=== PATIENT | male | born 1940 | race Caucasian/White ===

== ENCOUNTER 2017-10-22 15:47 | Inpatient (IN) ==
[2017-10-22] MEDS ORDERED: SALINE FLUSH 10ml SYRINGE IVF PRN (17:24)
--- OUTSIDE RECORDS SUMMARY | 2017-10-22 17:33 | External Medical Summary | Continuity of Care Document ---
:1940 Author Organization [facility] Address [address] [place] [address] Phone Care Team Providers Name Role Phone James Romero MD Primary Care Provider James Romero MD Unavailable Nohelia Combs Unavailable Unavailable Unavailable Unavailable Problems Name Dates Details Adjustment disorder with depressed mood (309.0, F43.21) Status: Active Ankle pain, right (719.47) Status: Active Benign essential hypertension (401.1, I10) Status: Active Benign prostatic hypertrophy with urinary frequency (600.01, N40.1) Status: Active Benign prostatic hypertrophy without lower urinary tract symptoms (LUTS) ( 600.00) Status: Active Carotid stenosis (433.10, I65.29) Status: Active Cellulitis, leg (682.6, L03.119) Status: Active Cough (786.2, R05) Status: Active Diabetes mellitus (250.00, E11.9) Status: Active 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, 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 Edema (Renamed from Accumulation of fluid in tissues) (782.3, R60.9) Status : Active Elevated PSA (790.93) Status: Active Encounter for long-term (current) use of anticoagulants (V58.61, Z79.01) Status: Active Fibrillation, atrial (427.31) Status: Active Foot pain, left (729.5, M79.672) Status: Active Gout (274.9, M10.9) Status: Active Health education (V65.40, Z71.9) Status: Active Hydronephrosis, left (591, N13.30) Status: Active Hyperglycemia (Renamed from Blood glucose elevated) (790.29, R73.9) Status: Active Hypertrophic and atrophic condition of skin (701.9, L98.9) Status: Active Inflamed seborrheic keratosis (702.11, L82.0) Status: Active 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, J40) Status: Active Low testosterone (257.2) Status: Active Malaise and fatigue (780.79, R53.81) Status: Active Need for prophylactic vaccination and inoculation against influenza (V04.81) Status: Active 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, 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 Obstructive sleep apnea (327.23) Status: Active Osteoarthritis, multiple sites (715.89, M15.9) Status: Active Prevnar (PCV13)FOR MEDICARE USE ONLY Pneumovax injection 36202 (V03.82) Status: Active Renal lithiasis (592.0, N20.0) Status: Active Stasis dermatitis (Renamed from Dermatitis, stasis) (454.1, I83.10) Status: Active Medications Name Dates Details ALLOPURINOL, 300MG (Oral Tablet) 1/2 Tablet daily for 30 days Quantity: 30 {Tablet} Refills: 6 Ordered:28-Oct-2014 James Romero MD Start 28-Oct-2014 Active Comments:1/2 daily COLCHICINE-PROBENECID, 0.5-500MG (Oral Tablet) 1 (one) Tablet Tablet daily for 14 days Quantity: 30 {Tablet} Refills: 2 Ordered:12-Oct-2014 Nohelia Combs Start 12-Oct-2014 Active DIGOXIN, 0.25MG (Oral Tablet) 1 Tablet daily for 90 days Quantity: 90 {Tablet} Refills: 4 Ordered:03-Nov-2013 Nohelia Combs Start 03-Nov-2013 Active DILTIAZEM HCL ER, 240MG (Oral Capsule Extended Release 24 Hour) 1 Capsule ER 24HR daily for 90 days Quantity: 90 {Capsule} Refills: 4 Ordered:03-Nov-2013 Nohelia Combs Start 03-Nov-2013 Active FLOMAX, 0.4MG (Oral Capsule) 1 Capsule daily at supper for 90 days Quantity: 90 {Capsule} Refills: 4 Ordered:02-Oct-2011 James Romero MD Start 02-Oct-2011 Active LISINOPRIL, 10MG (Oral Tablet) one tab Tablet daily for 90 days Quantity: 90 {Tablet} Refills: 4 Ordered:21-Jun-2014 Nohelia Combs Start 21-Jun-2014 Active METFORMIN HCL, 500MG (Oral Tablet) 1 Tablet daily for 90 days Quantity: 90 {Tablet} Refills: 4 Ordered:03-Nov-2013 Nohelia Combs Start 03-Nov-2013 Active PROMETHAZINE-DM, 6.25-15MG/5ML (Oral Syrup) 1-2 tsp Syrup Syrup every four hours, as needed for 10 days Quantity: 4 {Syrup} Refills: 1 Ordered:02-Jan-2013 James Romero MD Start 02-Jan-2013 Active Comments:Medication taken as needed. TRIAMTERENE-HCTZ, 37.5-25MG (Oral Capsule) - Historical Medication PRN (37.5-25 MG) Active TRUEPLUS LANCETS 28G (Miscellaneous) 1 (one) Misc use as directed once daily for 100 days Quantity: 100 {Box} Refills: 4 Ordered:16-Nov-2014 James Romero MD Start 16-Nov-2014 Active Comments:dx 250.00 TRUETEST TEST (In Vitro Strip) 1 (one) Strip use as directed once daily for 50 days Quantity: 50 {Strip} Refills: 8 Ordered:12-Nov-2014 James Romero MD Start 12-Nov-2014 Active Comments:dx 250.00 WARFARIN SODIUM, 5MG (Oral Tablet) one Tablet daily for 90 days Quantity: 135 {Tablet} Refills: 4 Ordered:08-Dec-2012 James Romero MD Start 08-Dec-2012 Active BACTRIM DS, 800-160MG (Oral Tablet) 1 (one) Tablet two times daily for 10 days Quantity: 20 {Tablet} Refills: 0 Ordered:11-Nov-2014 Nohelia Combs Start 11-Nov-2014 End 21-Nov-2014 Inactive BACTRIM DS, 800-160MG (Oral Tablet) - Historical Medication 1 two times daily (800-160 MG) Inactive Comments:04-30-[address] elbert TURNER, 500MG (Oral Tablet) - Historical Medication 1 two times daily (500 MG) Inactive Comments:started on 10/17/13 after being dismissed from [facility] for kidney stone by cac CITALOPRAM HYDROBROMIDE, 20MG (Oral Tablet) 1 Tablet daily for 30 days Quantity: 30 {Tablet} Refills: 2 Ordered:01-May-2012 Nohelia Combs Start End 01-May-2012 Inactive Comments:May increase to 2 in 10 days, if able and can refill with 40mg DIGOXIN, 0.25MG (Oral Tablet) 1 Tablet daily for 90 days Quantity: 90 {Tablet} Refills: 4 Ordered:30-Oct-2012 Nohelia Combs Start 19-Aug-2012 End 30-Oct-2012 Inactive DILTIAZEM HCL, 240MG (Oral Capsule Extended Release 24 Hour) - Historical Medication daily (240 MG) Inactive DOXAZOSIN MESYLATE, 4MG (Oral Tablet) - Historical Medication daily (4 MG) Inactive DYAZIDE, 37.5-25MG (Oral Capsule) 1 Capsule every 2-3 days for 30 days Quantity: 30 {Capsule} Refills: 1 Ordered:07-Aug-2011 Reshma Chaudhry Start End 07-Aug-2011 Inactive GUAIFENESIN ER, 600MG (Oral Tablet Extended Release 12 Hour) 1 (one) Tablet ER 12HR two times daily for 10 days Quantity: 20 {Tablet_ER_12HR} Refills: 0 Ordered:02-Jan-2013 James Romero MD Start 02-Jan-2013 End 12-Jan-2013 Inactive Comments:use if helpful LISINOPRIL, 20MG (Oral Tablet) - Historical Medication daily (20 MG) Inactive METFORMIN HCL, 500MG (Oral Tablet) 1 Tablet daily for 90 days Quantity: 90 {Tablet} Refills: 4 Ordered:30-Oct-2012 Nohelia Combs Start 24-Sep-2011 End 30-Oct-2012 Inactive NORCO, 5-325MG (Oral Tablet) - Historical Medication 1 take one tablet every four hours as needed for pain (5-325 MG) Inactive Comments:Medication taken as needed. 10/17/13 dx kidney stone from being discharged from [facility] testrone cream 10% apply 0.5ml daily - Historical Medication Inactive ZITHROMAX, 250MG (Oral Tablet) 2, then 1 (one) Tablet daily for 5 days Quantity: 6 {Tablet} Refills: 0 Ordered:02-Jan-2013 James Romero MD Start 02-Jan-2013 End 07-Jan-2013 Inactive Allergies and Adverse Reactions Name Dates Details No Known Allergies (Allergy) Onset: Status: Active No Known Drug Allergies (Allergy) Onset: Status: Active Past Medical History No Significant Medical History. Procedures Procedure Dates Details Follow up - Keep appt as scheduled Ordered:28-Oct-2014 CAROTID BILATERAL US (31061) Completed:14-Sep-2014 Comments: Verbal order from Dr. James Romero Follow up in 6 months Ordered:12-Aug-2014 PREVNAR 13 VALENT PNEUMOCOCCAL Completed:12-Aug-2014 VACCINE ([id number]) ADMINISTRATION OF PNEUMOCOCCAL Ordered:12-Aug-2014 CONJUGATE VACCINE (G0009) How to access health information Completed:12-Aug-2014 online Follow up in 6 months Ordered: Follow up in 2 months Ordered:26-Oct-2013 ADMIN INFLUENZA VIRUS VAC: FLU VACC Completed:26-Oct-2013 PRSV FREE INC ANTIG ([id number]) ADMINISTRATION OF INFLUENZA VIRUS Ordered:26-Oct-2013 VACCINE (G0008) Follow up in 6 months Ordered:30-Apr-2013 Follow up - Keep appt as scheduled Ordered:02-Jan-2013 Follow up in 6 months Ordered:30-Oct-2012 Follow up in 3 months Ordered:01-Aug-2012 Follow up in 3 months Ordered:01-May-2012 Follow up in 6 weeks Ordered: ADMINISTRATION OF INFLUENZA VIRUS Ordered:14-May-2011 VACCINE (G0008) FLU VACC PRSV FREE INC ANTIG Completed:14-May-2011 ([id number]) Follow up in 2 months Ordered:14-May-2011 Follow up in 2 months Ordered: Annual Eye Exam Completed:22-Nov-2008 Colonoscopy, Screening Completed: Colonoscopy, Screening Completed:06-Oct-2014 Flu Vaccine Completed:26-Oct-2013 Flu Vaccine Completed:06-Jun-2012 Comments: [facility] Flu Vaccine Completed:14-May-2011 Comments: high dose Pneumovax Completed:2008 13 Completed:12-Aug-2014 PSA Completed:28-Apr-2012 Comments: (16.45) PSA Completed:10-Apr-2011 Comments: (5.95) PSA Completed:23-Jun-2012 Comments: (8.05) PSA Completed:14-Oct-2012 Comments: (8.11) PSA Completed: Comments: (5.60) PSA Completed:15-Sep-2013 Comments: (5.40) PSA Completed: Comments: (6.15) PSA Completed:24-Aug-2014 Comments: (7.11) Immunization Name Dates Details Fluzone Administered on:14-May-2011 Comments: Site: Deltoid (Left); high dose Lot #: [id number] Influenza, preserv. free, enhanced immunogncty, IM Administered on:2013 Comments: Site: Deltoid (Left) Lot #: [id number] Pneumococcal conjugate vaccine, 13 valent, IM Administered on:12-Aug-2014 Comments: Site: Deltoid (Left) Lot #: [id number] Social History Name Dates Details Tobacco use: Former smoker. Status: Active Current tobacco use: Former smoker. Status: Inactive Vital Signs Date Test Result Details 28-Oct-2014 11:37 Temperature 98.4 f Comments: Method: Temporal Pulse 76 /min Comments: Pattern: Regular Respiration Rate 20 /min Comments: Pattern: Unlabored BP Systolic 126 mm[Hg] Comments: Patient Position: Sitting; Cuff Location: Left Arm; Cuff Size: Standard BP Diastolic 72 mm[Hg] Comments: Patient Position: Sitting; Cuff Location: Left Arm; Cuff Size: Standard Weight 229.3125 lb Height 73 in Body Mass Index Calculated 30.25 kg/m2 Body Surface Area Calculated 2.28 m2 12-Aug-2014 09:49 Temperature 98.1 f Comments: Method: Temporal Pulse 84 /min Comments: Pattern: Regular Respiration Rate 20 /min Comments: Pattern: Unlabored BP Systolic 128 mm[Hg] Comments: Patient Position: Sitting; Cuff Location: Left Arm; Cuff Size: Standard BP Diastolic 76 mm[Hg] Comments: Patient Position: Sitting; Cuff Location: Left Arm; Cuff Size: Standard Weight 229 lb Height 73 in Body Mass Index Calculated 30.21 kg/m2 Body Surface Area Calculated 2.28 m2 13:34 Temperature 98.7 f Comments: Method: Temporal Pulse 72 /min Comments: Pattern: Regular BP Systolic 126 mm[Hg] Comments: Patient Position: Sitting; Cuff Location: Left Arm; Cuff Size: Standard BP Diastolic 72 mm[Hg] Comments: Patient Position: Sitting; Cuff Location: Left Arm; Cuff Size: Standard Weight 233 lb Height 72.5 in Body Mass Index Calculated 31.17 kg/m2 Body Surface Area Calculated 2.28 m2 26-Oct-2013 16:20 Temperature 98.7 f Comments: Method: Temporal Pulse 66 /min Comments: Pattern: Irregular Respiration Rate 20 /min Comments: Pattern: Unlabored BP Systolic 110 mm[Hg] Comments: Patient Position: Sitting; Cuff Location: Left Arm; Cuff Size: Standard BP Diastolic 70 mm[Hg] Comments: Patient Position: Sitting; Cuff Location: Left Arm; Cuff Size: Standard Weight 237 lb Height 71.5 in Body Mass Index Calculated 32.59 kg/m2 Body Surface Area Calculated 2.28 m2 30-Apr-2013 10:31 Temperature 98.9 f Comments: Method: Temporal Pulse 76 /min Comments: Pattern: Regular Respiration Rate 20 /min Comments: Pattern: Unlabored BP Systolic 110 mm[Hg] Comments: Patient Position: Sitting; Cuff Location: Left Arm; Cuff Size: Standard BP Diastolic 60 mm[Hg] Comments: Patient Position: Sitting; Cuff Location: Left Arm; Cuff Size: Standard Weight 230 lb Height 70.5 in Body Mass Index Calculated 32.53 kg/m2 Body Surface Area Calculated 2.23 m2 02-Jan-2013 15:18 Temperature 99 f Comments: Method: Temporal Pulse 80 /min Comments: Pattern: Irregular Respiration Rate 20 /min Comments: Pattern: Unlabored BP Systolic 110 mm[Hg] Comments: Patient Position: Sitting; Cuff Location: Left Arm; Cuff Size: Standard BP Diastolic 80 mm[Hg] Comments: Patient Position: Sitting; Cuff Location: Left Arm; Cuff Size: Standard Weight 245 lb Height 73 in Body Mass Index Calculated 32.32 kg/m2 Body Surface Area Calculated 2.35 m2 01-Aug-2012 09:39 Temperature 97.9 f Comments: Method: Temporal Pulse 76 /min Comments: Pattern: Irregular Respiration Rate 20 /min Comments: Pattern: Unlabored BP Systolic 100 mm[Hg] Comments: Patient Position: Sitting; Cuff Location: Left Arm; Cuff Size: Standard BP Diastolic 64 mm[Hg] Comments: Patient Position: Sitting; Cuff Location: Left Arm; Cuff Size: Standard Weight 239 lb Height 71.5 in Body Mass Index Calculated 32.87 kg/m2 Body Surface Area Calculated 2.29 m2 01-May-2012 11:19 Temperature 99.1 f Comments: Method: Temporal Pulse 80 /min Comments: Pattern: Irregular Respiration Rate 20 /min Comments: Pattern: Unlabored BP Systolic 98 mm[Hg] Comments: Patient Position: Sitting; Cuff Location: Left Arm; Cuff Size: Standard BP Diastolic 60 mm[Hg] Comments: Patient Position: Sitting; Cuff Location: Left Arm; Cuff Size: Standard Weight 238.5 lb Height 72 in Body Mass Index Calculated 32.35 kg/m2 Body Surface Area Calculated 2.3 m2 15:28 Temperature 98.4 f Comments: Method: Temporal Pulse 72 /min Comments: Pattern: Irregular Respiration Rate 20 /min Comments: Pattern: Unlabored BP Systolic 108 mm[Hg] Comments: Patient Position: Sitting; Cuff Location: Left Arm; Cuff Size: Standard BP Diastolic 62 mm[Hg] Comments: Patient Position: Sitting; Cuff Location: Left Arm; Cuff Size: Standard Weight 235 lb Height 72 in Body Mass Index Calculated 31.87 kg/m2 Body Surface Area Calculated 2.28 m2 07-Aug-2011 11:28 Temperature 97.9 f Comments: Method: Temporal Pulse 92 /min Comments: Pattern: Regular BP Systolic 120 mm[Hg] Comments: Patient Position: Sitting; Cuff Location: Left Arm; Cuff Size: Standard BP Diastolic 84 mm[Hg] Comments: Patient Position: Sitting; Cuff Location: Left Arm; Cuff Size: Standard Weight 237 lb Height 72 in Body Mass Index Calculated 32.14 kg/m2 Body Surface Area Calculated 2.29 m2 14-May-2011 15:35 Temperature 97.6 f Comments: Method: Temporal Pulse 100 /min Comments: Pattern: Irregular Respiration Rate 20 /min Comments: Pattern: Unlabored BP Systolic 120 mm[Hg] Comments: Patient Position: Sitting; Cuff Location: Left Arm; Cuff Size: Standard BP Diastolic 70 mm[Hg] Comments: Patient Position: Sitting; Cuff Location: Left Arm; Cuff Size: Standard Weight 231 lb Height 72.25 in Body Mass Index Calculated 31.11 kg/m2 Body Surface Area Calculated 2.27 m2 14:05 Temperature 98.5 f Comments: Method: Temporal Pulse 60 /min Comments: Pattern: Irregular Respiration Rate 20 /min Comments: Pattern: Unlabored BP Systolic 124 mm[Hg] Comments: Patient Position: Sitting; Cuff Location: Left Arm; Cuff Size: Standard BP Diastolic 74 mm[Hg] Comments: Patient Position: Sitting; Cuff Location: Left Arm; Cuff Size: Standard Weight 234 lb Height 71.75 in Body Mass Index Calculated 31.96 kg/m2 Body Surface Area Calculated 2.27 m2 Results Date Description Value Details 01-Aug-2012 SHAVE SKIN LESION Comments: The left neck Final 10:36 SINGLE ([id number]) lesion was removed and also the left angle of the jaw lesion and the right cheek lesion in the same manner, although I only charged for the one on the left neck that was definitely inflamed. Procedure as follows: The skin was anesthetized with 1 cc 1% lidocaine with each lesion after cleansing with Hibiclens solution x3.I then used a #15 scalpel with pickups to shave the lesion then cauterized the base with good hemostasis. Lesions were not sent to pathology. 10:35 PUNCH BIOPSY ([id number]) Comments: After Final FIRST BIOPSY cleansing the left forearm with Hibiclens solution x3, the area was anesthetized with 1 cc 1% lidocaine and a 2 mm punch was used and elevated with sterile scissors and sent to pathology. Silver nitrate stick was for cautery. 28-Oct-2014 PT (PROTHROMBIN TIME) Comments: Items in this order include: Draw Charge[i], Protime & INRDoes patient have a artifical heart valve? No 10:48 ([facility]) (41449) 9. Saturday Dosage 7.5 mg (Normal) 8. Saturday Dosage 7.5 mg (Normal) 7. Dosage 7.5 mg (Normal) 6. Saturday Dosage 7.5 mg (Normal) 5. Saturday Dosage 7.5 mg (Normal) 4. Saturday Dosage 7.5 mg (Normal) 3. Saturday Dosage 7.5 mg (Normal) INR 3.67 (Normal) PT 39.7 s (Abnormal) Range: 9.3-11.7 10:48 Routine Venipuncture Comments: Items in this order include: Draw Charge[i], Protime & INR (86012) Draw Drawn (Normal) 29-Nov-2014 PT (PROTHROMBIN TIME) Comments: Items in this order include: Draw Charge[i], Protime & INRDoes patient have a artifical heart valve? No 10:28 ([employer]) (22774) 9. Saturday Dosage 5.0 mg (Normal) 8. Saturday Dosage 5.0 mg (Normal) 6. Saturday Dosage 5.0 mg (Normal) 7. Dosage 5.0 mg (Normal) 5. Saturday Dosage 5.0 mg (Normal) 3. Saturday Dosage 5.0 mg (Normal) 4. Saturday Dosage 5.0 mg (Normal) INR 2.50 (Normal) PT 26.7 s (Abnormal) Range: 9.3-11.7 10:28 Routine Venipuncture Comments: Items in this order include: Draw Charge[i], Protime & INR (81593) Draw Drawn (Normal) 21-Sep-2014 PT (PROTHROMBIN TIME) Comments: Items in this order include: Draw Charge[i], Protime & INRDolynn patient have a artifical heart valve? No 10:08 ([facility]) (79498) 9. Saturday Dosage 5.0 mg (Normal) 7. Dosage 5.0 mg (Normal) 8. Saturday Dosage 7.5 mg (Normal) 6. Saturday Dosage 7.5 mg (Normal) 4. Saturday Dosage 7.5 mg (Normal) 5. Saturday Dosage 5.0 mg (Normal) 3. Saturday Dosage 5.0 mg (Normal) INR 2.92 (Normal) PT 31.4 s (Abnormal) Range: 9.3-11.7 10:08 Routine Venipuncture Comments: Items in this order include: Draw Charge[i], Protime & INR (59200) Draw Drawn (Normal) 24-Aug-2014 Routine Venipuncture Comments: Items in this order include: Protime & INR, Draw Charge[i] 09:59 ([id number]) Draw Drawn (Normal) 09:59 PT (PROTHROMBIN TIME) Comments: Items in this order include: Protime & INR, Draw Charge[i]INR value > 3.0 given to Estella by Beny Buckley patient have a artifical heart valve? No ([facility]) (13277) 9. Saturday Dosage 7.5 mg (Normal) 7. Dosage 7.5 mg (Normal) 8. Saturday Dosage 7.5 mg (Normal) 5. Saturday Dosage 7.5 mg (Normal) 6. Saturday Dosage 7.5 mg (Normal) 4. Saturday Dosage 7.5 mg (Normal) 3. Saturday Dosage 7.5 mg (Normal) INR 3.76 (Normal) PT 40.8 s (Abnormal) Range: 9.3-11.7 09:59 CBC MALE- ORDER THIS Comments: Items in this order include: Digoxin, PSA, Basic Metabolic Panel, Hemoglobin A1C, Urine Microalbumin, CBC ONE! (96755) manual diff Not Indicated (Normal) mpv 9.60 fL (Normal) Range: 0.00-99.90 PLT 234.0 10*3/uL (Normal) Range: 150.0-450.0 RDW 13.5 % (Normal) Range: 11.5-14.5 MCH 30.5 pg (Normal) Range: 27.0-31.2 MCHC 32.6 g/dL (Normal) Range: 31.0-36.0 MCV 93.3 fL (Normal) Range: 80.0-97.0 HCT 43.2 % (Normal) Range: 39.0-54.0 HGB 14.10 g/dL (Normal) Range: 13.00-17.00 RBC 4.63 M/uL (Normal) Range: 4.60-6.20 Baso% 0.500 % (Normal) Range: 0.000-1.000 eos% 2.50 % (Normal) Range: 0.00-3.00 mono% 5.10 % (Normal) Range: 0.00-9.00 LYM% 20.50 % (Normal) Range: 20.00-40.00 Baso 0.030 10*3/uL (Normal) Range: 0.000-0.100 nirmal% 71.40 % (Normal) Range: 55.00-75.00 eos 0.150 10*3/uL (Normal) Range: 0.000-4.000 mono 0.30 10*3/uL (Normal) Range: 0.00-0.70 LYMPHS 1.22 10*3/uL (Normal) Range: 0.90-4.20 nirmal 4.24 10*3/uL (Normal) Range: 2.50-7.80 wbc 5.94 10*3/uL (Normal) Range: 4.50-10.50 09:59 Urine Microalbumin Comments: Items in this order include: Digoxin, PSA, Basic Metabolic Panel, Hemoglobin A1C, Urine Microalbumin, CBC (87541) U A:C RATIO <30 mg/g Normal Range: <30 mg/g Normal (Normal) U CREAT 200 mg/dL (Normal) Range: 10-300 U ALB 80 mg/L (Abnormal) Range: 10 mg/L 09:59 HEMOGLOBIN GLYCLATED Comments: Items in this order include: Digoxin , PSA, Basic Metabolic Panel, Hemoglobin A1C, Urine Microalbumin, CBC (HGB A1C) (95608) A1C 5.9 % (Normal) Range: 4.6-6.2 Comments: Increased risk of diabetes. 09:59 [facility] (87033) Comments: Items in this order include: Digoxin, PSA, Basic Metabolic Panel, Hemoglobin A1C, Urine Microalbumin, CBC GLU 159 mg/dL (Abnormal) Range: 70-110 CA 8.4 mg/dL (Normal) Range: 8.4-10.2 eGFR 53.0 mL/min/1.73m2 Range: >60.0 (Abnormal) CREAT 1.4 mg/dL (Abnormal) Range: 0.6-1.3 OSMO 287 (Normal) Range: 275-295 BUN 24 mg/dL (Abnormal) Range: 7-18 AGAP 13.00 mmol/L (Normal) Range: 10.00-20.00 CO2 27.9 mmol/L (Normal) Range: 21.0-32.0 CL 103 mmol/L (Normal) Range: 98-107 K 3.9 mmol/L (Normal) Range: 3.5-5.0 NA 140 mmol/L (Normal) Range: 135-145 09:59 PSA (PROSTATE SPECIFIC Comments: Items in this order include: Digoxin, PSA, Basic Metabolic Panel, Hemoglobin A1C, Urine Microalbumin, CBC ANTIGEN) (65913) PSA 7.11 ng/mL (Abnormal) Range: 0.00-4.00 09:59 DIGOXIN (09611) Comments: Items in this order include: Digoxin, PSA , Basic Metabolic Panel, Hemoglobin A1C, Urine Microalbumin, CBCTime of Last Dose? 08/23/2014 8:00 AMDosage? 0.25 DIG 0.36 ng/mL (Abnormal) Range: 0.90-2.00 05-Aug-2014 PT (PROTHROMBIN TIME) Comments: Items in this order include: Draw Charge[i], Protime & INRDoes patient have a artifical heart valve? No 10:48 ([facility]) (42389) 8. Saturday Dosage 7.5 mg (Normal) 9. Saturday Dosage 5.0 mg (Normal) 6. Saturday Dosage 7.5 mg (Normal) 7. Dosage 5.0 mg (Normal) 5. Saturday Dosage 5.0 mg (Normal) 4. Saturday Dosage 7.5 mg (Normal) 3. Saturday Dosage 5.0 mg (Normal) INR 1.11 (Normal) PT 11.5 s (Normal) Range: 9.3-11.7 10:48 Routine Venipuncture Comments: Items in this order include: Draw Charge[i], Protime & INR (76385) Draw Drawn (Normal) 03-Jun-2014 PT (PROTHROMBIN TIME) Comments: Items in this order include: Draw Charge[i], Protime & INRDoes patient have a artifical heart valve? No 13:56 ([facility]) (27033) 9. Saturday Dosage 7.5 mg (Normal) 8. Saturday Dosage 5.0 mg (Normal) 7. Dosage 7.5 mg (Normal) 6. Saturday Dosage 5.0 mg (Normal) 5. Saturday Dosage 7.5 mg (Normal) 4. Saturday Dosage 5.0 mg (Normal) 3. Saturday Dosage 7.5 mg (Normal) INR 2.21 (Normal) PT 23.5 s (Abnormal) Range: 9.3-11.7 13:56 Routine Venipuncture Comments: Items in this order include: Draw Charge[i], Protime & INR (30904) Draw Drawn (Normal) PT (PROTHROMBIN TIME) Comments: Items in this order include: Protime & INRDoes patient have a artifical heart valve? No 14:25 ([facility]) (93797) 9. day Dosage 5.0 mg (Normal) 8. Saturday Dosage 7.5 mg (Normal) 7. Dosage 5.0 mg (Normal) 6. Saturday Dosage 5.0 mg (Normal) 5. Saturday Dosage 7.5 mg (Normal) 4. Saturday Dosage 5.0 mg (Normal) 3. Saturday Dosage 5.0 mg (Normal) INR 1.57 (Normal) PT 16.7 s (Abnormal) Range: 10.4-12.4 14:25 PSA (PROSTATE SPECIFIC Comments: A copy of this report will be faxed to: Bettie Boswell in this order include: Draw Charge[i], PSA ANTIGEN) ([id number]) PSA 6.15 ng/mL (Abnormal) Range: 0.00-4.00 14:25 Routine Venipuncture Comments: A copy of this report will be faxed to: Bettie Boswell in this order include: Draw Charge[i], PSA ([id number]) Draw Drawn (Normal) HEMOGLOBIN GLYCLATED Comments: Items in this order include: Hemoglobin A1C, Draw Charge[i], Comprehensive Metabolic Panel, Uric Acid 15:06 (HGB A1C) (10472) A1C 5.7 % (Normal) Range: 4.6-6.2 15:06 CMP ([id number]) Comments: Items in this order include: Hemoglobin A1C, Draw Charge[i], Comprehensive Metabolic Panel, Uric Acid ALTI 28 U/L (Normal) Range: 12-78 AST 24 [iU]/L (Normal) Range: 10-42 ALP 72 U/L (Normal) Range: 50-136 a/g ratio 1.15 (Normal) Range: 1.00-2.10 globulin 3.3 g/dL (Normal) Range: 2.2-3.9 ALB 3.8 g/dL (Normal) Range: 3.4-5.0 TP 7.1 g/dL (Normal) Range: 6.0-8.3 T.ALVINO 0.28 mg/dL (Normal) Range: 0.20-1.00 GLU 68 mg/dL (Abnormal) Range: 70-110 CA 9.1 mg/dL (Normal) Range: 8.4-10.2 eGFR 53.1 mL/min/1.73m2 Range: >60.0 (Abnormal) CREAT 1.4 mg/dL (Abnormal) Range: 0.6-1.3 OSMO 285 (Normal) Range: 275-295 BUN 25 mg/dL (Abnormal) Range: 7-18 AGAP 18.70 mmol/L (Normal) Range: 10.00-20.00 CO2 21.4 mmol/L (Normal) Range: 21.0-32.0 CL 105 mmol/L (Normal) Range: 98-107 K 4.1 mmol/L (Normal) Range: 3.5-5.0 NA 141 mmol/L (Normal) Range: 135-145 15:06 URIC ACID BLOOD (69387) Comments: Items in this order include: Hemoglobin A1C, Draw Charge[i], Comprehensive Metabolic Panel, Uric Acid Uric Acid 8.0 mg/dL (Abnormal) Range: 3.6-7.7 15:06 Routine Venipuncture Comments: Items in this order include: Hemoglobin A1C, Draw Charge[i], Comprehensive Metabolic Panel, Uric Acid (20370) Draw Drawn (Normal) PT (PROTHROMBIN TIME) Comments: Items in this order include: Draw Charge[i], Protime & INRDoes patient have a artifical heart valve? No 14:27 ([facility]) (01650) 8. Saturday Dosage 5.0 mg (Normal) 9. Saturday Dosage 5.0 (cycle 5,5,7.5) mg (Normal) 7. Dosage 7.5 mg (Normal) 6. Saturday Dosage 5.0 mg (Normal) 5. Saturday Dosage 5.0 mg (Normal) 4. Saturday Dosage 7.5 mg (Normal) 3. Saturday Dosage 5.0 mg (Normal) INR 1.93 (Normal) PT 20.3 s (Abnormal) Range: 10.4-12.4 14:27 Routine Venipuncture Comments: Items in this order include: Draw Charge[i], Protime & INR (96056) Draw Drawn (Normal) 26-Oct-2013 Draw Charge[i] Comments: Items in this order include: Basic Metabolic Panel, Draw Charge[i] 17:08 Draw Drawn (Normal) 17:05 [facility] (16709[facility] Comments: Items in this order include: Basic Metabolic Panel, Draw Charge[i] GLU 98 mg/dL (Normal) Range: 70-110 CA 8.9 mg/dL (Normal) Range: 8.4-10.2 eGFR 53.1 mL/min/1.73m2 Range: >60.0 (Abnormal) CREAT 1.4 mg/dL (Abnormal) Range: 0.6-1.3 OSMO 283 (Normal) Range: 275-295 BUN 22 mg/dL (Abnormal) Range: 7-18 AGAP 15.80 mmol/L (Normal) Range: 10.00-20.00 CO2 26.8 mmol/L (Normal) Range: 21.0-32.0 CL 102 mmol/L (Normal) Range: 98-107 K 4.6 mmol/L (Normal) Range: 3.5-5.0 NA 140 mmol/L (Normal) Range: 135-145 16:04 PT (PROTHROMBIN TIME) Comments: Items in this order include: Draw Charge[i], Protime & INRDoes patient have a artifical heart valve? No ([facility]) (59238) 9. Saturday Dosage 5.0 mg (Normal) 7. Dosage 5.0 mg (Normal) 8. Saturday Dosage 5.0 mg (Normal) 6. Saturday Dosage 5.0 mg (Normal) 5. Saturday Dosage 5.0 mg (Normal) 4. Saturday Dosage 5.0 mg (Normal) 3. Saturday Dosage 5.0 mg (Normal) INR 2.62 (Normal) PT 27.0 s (Abnormal) Range: 10.4-12.4 16:04 Routine Venipuncture Comments: Items in this order include: Draw Charge[i], Protime & INR (63996) Draw Drawn (Normal) 15-Sep-2013 PSA (PROSTATE SPECIFIC Comments: A copy of this report will be faxed to: Bettie Boswell in this order include: A COPY TO [eliana PSAPSA allowed more than once a year due to being a Diagonistic PSA not a screening PSA 11:05 ANTIGEN) (00171) PSA 5.40 ng/mL (Abnormal) Range: 0.00-4.00 11:[address] Boswell Comments: A copy of this report will be faxed to: Bettie Boswell in this order include: A COPY TO [kyung] PSAPSA allowed more than once a year due to being a Diagonistic PSA not a screening PSA Ordering Doctor . (Normal) 11:05 Draw Charge[i] Comments: Items in this order include: Draw Charge[i ], Protime & INR Draw Drawn (Normal) 11:05 Protime & INR Comments: Items in this order include: Draw Charge[i], Protime & INRDoes patient have a artifical heart valve? No 8. Saturday Dosage 5.0 mg (Normal) 9. Saturday Dosage 5.0 mg (Normal) 7. Dosage 7.5 mg (Normal) 5. Saturday Dosage 5.0 mg (Normal) 6. Saturday Dosage 5.0 mg (Normal) 4. Saturday Dosage 7.5 mg (Normal) 3. Saturday Dosage 5.0 mg (Normal) INR 2.32 (Normal) PT 24.1 s (Abnormal) Range: 10.4-12.4 07-Aug-2013 HEMOGLOBIN GLYCLATED Comments: Items in this order include: Comprehensive Metabolic Panel, Hemoglobin [id number] Hgb A1C was ran 99 Days ago. Check by MARGARITA 10:38 (HGB A1C) (44600) A1C 5.9 % (Normal) Range: 4.6-6.2 Comments: Increased risk of diabetes. 10:38 [facility] ([id number]) Comments: Items in this order include: Comprehensive Metabolic Panel, Hemoglobin [id number] Hgb A1C was ran 99 Days ago. Check by MARGARITA ALTI 27 U/L (Normal) Range: 12-78 AST 20 [iU]/L (Normal) Range: 10-42 ALP 83 U/L (Normal) Range: 50-136 a/g ratio 1.03 (Normal) Range: 1.00-2.10 globulin 3.6 g/dL (Normal) Range: 2.2-3.9 ALB 3.7 g/dL (Normal) Range: 3.4-5.0 TP 7.3 g/dL (Normal) Range: 6.0-8.3 T.BILI 0.48 mg/dL (Normal) Range: 0.20-1.00 GLU 135 mg/dL (Abnormal) Range: 70-110 CA 8.7 mg/dL (Normal) Range: 8.4-10.2 eGFR 63.5 mL/min/1.73m2 Range: >60.0 (Normal) CREAT 1.2 mg/dL (Normal) Range: 0.6-1.3 OSMO 287 (Normal) Range: 275-295 BUN 22 mg/dL (Abnormal) Range: 7-18 AGAP 12.50 mmol/L (Normal) Range: 10.00-20.00 CO2 28.6 mmol/L (Normal) Range: 21.0-32.0 CL 104 mmol/L (Normal) Range: 98-107 K 4.1 mmol/L (Normal) Range: 3.5-5.0 NA 141 mmol/L (Normal) Range: 135-145 10:38 PT (PROTHROMBIN TIME) Comments: Items in this order include: Draw Charge[i], Protime & INRDoes patient have a artifical heart valve? No ([facility]) (75713) 9. Saturday Dosage 5.0 (cycle of 5,5,7.5 Repeat) mg (Normal) 8. Saturday Dosage 5.0 mg (Normal) 7. Dosage 7.5 mg (Normal) 6. Saturday Dosage 5.0 mg (Normal) 5. Saturday Dosage 5.0 mg (Normal) 4. Saturday Dosage 7.5 mg (Normal) 3. Saturday Dosage 5.0 mg (Normal) INR 1.97 (Normal) PT 20.7 s (Abnormal) Range: 10.4-12.4 10:38 Routine Venipuncture Comments: Items in this order include: Draw Charge[i], Protime & INR (54759) Draw Drawn (Normal) 10:38 DIGOXIN (43903) Comments: Items in this order include: DigoxinTime of Last Dose? 08/06/2013 8:30 AMDosage? 0.25 mg daily DIG 0.48 ng/mL (Abnormal) Range: 0.90-2.00 30-Apr-2013 HEMOGLOBIN GLYCLATED Comments: Items in this order include: Comprehensive Metabolic Panel, CBC, Hemoglobin Q3VGses Hgb A1C was ran 225 Days ago. Check by ms 11:58 (HGB A1C) (75283) A1C 6.1 % (Normal) Range: 4.6-6.2 11:58 CBC MALE- ORDER THIS Comments: Items in this order include: Comprehensive Metabolic Panel, CBC, Hemoglobin [id number] Hgb A1C was ran 225 Days ago. Check by ms ONE! (40707) manual diff Not Indicated (Normal) mpv 4.88 fL (Normal) Range: 0.00-99.90 PLT 271.0 10*3/uL (Normal) Range: 150.0-450.0 RDW 12.1 % (Normal) Range: 11.5-14.5 MCHC 33.4 g/dL (Normal) Range: 31.0-36.0 MCH 29.4 pg (Normal) Range: 27.0-31.2 MCV 87.8 fL (Normal) Range: 80.0-97.0 HCT 42.5 % (Normal) Range: 39.0-54.0 HGB 14.20 g/dL (Normal) Range: 13.00-17.00 RBC 4.84 M/uL (Normal) Range: 4.60-6.20 Baso% 0.551 % (Normal) Range: 0.000-1.000 eos% 4.62 % (Abnormal) Range: 0.00-3.00 mono% 7.33 % (Normal) Range: 0.00-9.00 LYM% 24.20 % (Normal) Range: 20.00-40.00 nirmal% 63.30 % (Normal) Range: 55.00-75.00 Baso 0.034 10*3/uL (Normal) Range: 0.000-0.100 eos 0.284 10*3/uL (Normal) Range: 0.000-4.000 mono 0.45 10*3/uL (Normal) Range: 0.00-0.70 LYMPHS 1.49 10*3/uL (Normal) Range: 0.90-4.20 nirmal 3.89 10*3/uL (Normal) Range: 2.50-7.80 wbc 6.15 10*3/uL (Normal) Range: 4.50-10.50 11:58 CMP (55228) Comments: Items in this order include: Comprehensive Metabolic Panel, CBC, Hemoglobin [id number] Hgb A1C was ran 225 Days ago. Check by ms ALTI 27 U/L (Normal) Range: 12-78 AST 18 [iU]/L (Normal) Range: 10-42 ALP 78 U/L (Normal) Range: 50-136 a/g ratio 1.09 (Normal) Range: 1.00-2.10 globulin 3.5 g/dL (Normal) Range: 2.2-3.9 ALB 3.8 g/dL (Normal) Range: 3.4-5.0 TP 7.3 g/dL (Normal) Range: 6.0-8.3 T.BILI 0.39 mg/dL (Normal) Range: 0.20-1.00 GLU 101 mg/dL (Normal) Range: 70-110 CA 8.8 mg/dL (Normal) Range: 8.4-10.2 eGFR 57.9 mL/min/1.73m2 Range: >60.0 (Abnormal) CREAT 1.3 mg/dL (Normal) Range: 0.6-1.3 OSMO 282 (Normal) Range: 275-295 BUN 30 mg/dL (Abnormal) Range: 7-18 AGAP 11.60 mmol/L (Normal) Range: 10.00-20.00 CO2 27.5 mmol/L (Normal) Range: 21.0-32.0 CL 103 mmol/L (Normal) Range: 98-107 K 4.1 mmol/L (Normal) Range: 3.5-5.0 NA 138 mmol/L (Normal) Range: 135-145 09:52 Draw Charge[i] Comments: Items in this order include: Protime &amp ; INR, Draw Charge[i] Draw Drawn (Normal) 09:52 PT (PROTHROMBIN TIME) Comments: Items in this order include: Protime & INR, Draw Charge[i]Does patient have a artifical heart valve? No ([facility]) (86876) 4. Saturday Dosage Repeat mg (Normal) 3. Saturday Dosage 7.5 mg (Normal) 2. Saturday Dosage 5.0 mg (Normal) 1. Saturday Dosage 5.0 mg (Normal) INR 2.60 (Normal) PT 26.8 s (Abnormal) Range: 10.4-12.4 -March-2013 PT (PROTHROMBIN TIME) Comments: Items in this order include: Draw Charge[i], Protime & INRDoes patient have a artifical heart valve? No 15:12 ([employer]) (94454) 5. Dosage Repeat mg (Normal) 4. Saturday Dosage 5.0 mg (Normal) 3. Saturday Dosage 5.0 mg (Normal) 2. Saturday Dosage 7.5 mg (Normal) INR 2.31 (Normal) PT 24.0 s (Abnormal) Range: 10.4-12.4 15:12 Routine Venipuncture Comments: Items in this order include: Draw Charge[i], Protime & INR (33112) Draw Drawn (Normal) PSA (PROSTATE SPECIFIC Comments: A copy of this report will be faxed to: Bettie Boswell in this order include: PSA, Draw Charge[i]PSA allowed more than once a year due to being a Diagonistic PSA not a screening PSA 10:00 ANTIGEN) (26433) PSA 5.60 ng/mL (Abnormal) Range: 0.00-4.00 10:00 Draw Charge[i] Comments: A copy of this report will be faxed to: Bettie Boswell in this order include: PSA, Draw Charge[i]PSA allowed more than once a year due to being a Diagonistic PSA not a screening PSA Draw Drawn (Normal) 10:09 PT (PROTHROMBIN TIME) Comments: Items in this order include: Draw Charge[i], Protime & INRDoes patient have a artifical heart valve? No ([facility]) (60318) 3. Saturday Dosage Repeat mg (Normal) 2. Saturday Dosage 7.5 mg (Normal) 1. Saturday Dosage 5.0 mg (Normal) INR 2.64 (Normal) PT 27.2 s (Abnormal) Range: 10.4-12.4 10:09 Routine Venipuncture Comments: Items in this order include: Draw Charge[i], Protime & INR (72162) Draw Drawn (Normal) 16-Dec-2012 PT (PROTHROMBIN TIME) Comments: Items in this order include: Draw Charge[i], Protime & INRDoes patient have a artifical heart valve? No 10:46 ([facility]) (11842) 4. Saturday Dosage Repeat mg (Normal) 3. Saturday Dosage 5.0 mg (Normal) 2. Saturday Dosage 7.5 mg (Normal) INR 2.13 (Normal) PT 22.2 s (Abnormal) Range: 10.4-12.4 10:46 Routine Venipuncture Comments: Items in this order include: Draw Charge[i], Protime & INR (44551) Draw Drawn (Normal) 26-Nov-2012 Routine Venipuncture Comments: Items in this order include: Protime & INR, Draw Charge[i] 15:05 (89557) Draw Drawn (Normal) 15:05 PT (PROTHROMBIN TIME) Comments: Items in this order include: Protime & INR, Draw Charge[i]Does patient have a artifical heart valve? No ([facility]) (58102) 4. Saturday Dosage 5.0 Repeat mg (Normal) 3. Saturday Dosage 5.0 mg (Normal) 2. Saturday Dosage 7.5 mg (Normal) INR 1.34 (Normal) PT 14.4 s (Abnormal) Range: 10.4-12.4 30-Oct-2012 PT (PROTHROMBIN TIME) Comments: Items in this order include: Draw Charge[i], Protime & INRINR value > 3.0 given to BW by Froy Chávez patient have a artifical heart valve? No 10:38 ([facility]) (66770) 7. Saturday Dosage 7.5 mg (Normal) 6. Saturday Dosage 7.5 mg (Normal) 5. Dosage 7.5 mg (Normal) 4. Saturday Dosage 7.5 mg (Normal) 3. Saturday Dosage 7.5 mg (Normal) 2. Saturday Dosage 7.5 mg (Normal) 1. Saturday Dosage 7.5 mg (Normal) INR 3.69 (Normal) PT 37.4 s (Abnormal) Range: 10.4-12.4 10:38 Routine Venipuncture Comments: Items in this order include: Draw Charge[i], Protime & INR (36758) Draw Drawn (Normal) 11:33 BMP Comments: Items in this order include: Digoxin, Basic Metabolic Panel GLU 135 mg/dL (Abnormal) Range: 70-110 CA 8.7 mg/dL (Normal) Range: 8.4-10.2 eGFR 58.0 mL/min/1.73m2 Range: >60.0 (Abnormal) CREAT 1.3 mg/dL (Normal) Range: 0.6-1.3 OSMO 280 (Normal) Range: 275-295 BUN 19 mg/dL (Abnormal) Range: 7-18 AGAP 9.90 mmol/L (Abnormal) Range: 10.00-20.00 CO2 30.5 mmol/L (Normal) Range: 21.0-32.0 CL 102 mmol/L (Normal) Range: 98-107 K 4.4 mmol/L (Normal) Range: 3.5-5.0 NA 138 mmol/L (Normal) Range: 135-145 11:33 DIGOXIN, DRUG ASSAY Comments: Items in this order include: Digoxin , Basic Metabolic PanelTime of Last Dose? 10/29/2012 8:00 PMDosage? 0.25 mg Daily (66439) DIG 1.64 ng/mL (Normal) Range: 0.90-2.00 14-Oct-2012 PSA (PROSTATE SPECIFIC Comments: A copy of this report will be faxed to: Bettie Boswell in this order include: Draw Charge[i], Protime & INR, PSAPSA allowed more than once a year due to being a Diagonistic PSA not a screening PSA 10:25 ANTIGEN) (12483) PSA 8.11 ng/mL (Abnormal) Range: 0.00-4.00 10:25 PT (PROTHROMBIN TIME) Comments: PSA allowed more than once a year due to being a Diagonistic PSA not a screening PSACoumadin dosage=5,5,5,5,7.5 repeatDoes patient have a artifical heart valve? No ([facility]) (40459) 7. Saturday Dosage 7.5 mg (Normal) 6. Saturday Dosage 5.0 mg (Normal) 5. Dosage 5.0 mg (Normal) 4. Saturday Dosage 5.0 mg (Normal) 3. Saturday Dosage 5.0 mg (Normal) 2. Saturday Dosage 7.5 mg (Normal) 1. Saturday Dosage 5.0 mg (Normal) INR 1.66 (Normal) PT 17.5 s (Abnormal) Range: 10.4-12.4 10:25 Routine Venipuncture Comments: PSA allowed more than once a year due to being a Diagonistic PSA not a screening PSA (96901) Draw Drawn (Normal) 12-Sep-2012 PT (PROTHROMBIN TIME) Comments: Items in this order include: Draw Charge[i], Protime & INRDoes patient have a artifical heart valve? No 09:16 ([employer]) (58915) 6. Saturday Dosage Repeat mg (Normal) 5. Dosage 7.5 mg (Normal) 4. Saturday Dosage 5.0 mg (Normal) 3. Saturday Dosage 5.0 mg (Normal) 2. Saturday Dosage 5.0 mg (Normal) 1. Saturday Dosage 5.0 mg (Normal) INR 2.48 (Normal) PT 25.7 s (Abnormal) Range: 10.4-12.4 09:16 Routine Venipuncture Comments: Items in this order include: Draw Charge[i], Protime & INR (37482) Draw Drawn (Normal) 18-Aug-2012 PT (PROTHROMBIN TIME) Comments: Items in this order include: Protime & INRDoes patient have a artifical heart valve? No 11:44 ([facility]) (95093) 7. Saturday Dosage 5.0 mg (Normal) 6. Saturday Dosage 5.0 mg (Normal) 5. Dosage 5.0 mg (Normal) 4. Saturday Dosage 5.0 mg (Normal) 3. Saturday Dosage 5.0 mg (Normal) 2. Saturday Dosage 5.0 mg (Normal) 1. Saturday Dosage 5.0 mg (Normal) INR 1.54 (Normal) PT 16.3 s (Abnormal) Range: 10.4-12.4 11:44 Draw Charge[i] Comments: Items in this order include: Hemoglobin A1C, Draw Charge[i]Last Hgb A1C was ran 158 Days ago. Check by KB Draw Drawn (Normal) 11:44 HEMOGLOBIN GLYCLATED Comments: Items in this order include: Hemoglobin A1C, Draw Charge[i]Last Hgb A1C was ran 158 Days ago. Check by KB (HGB A1C) (99018) A1C 6.2 % (Normal) Range: 4.6-6.2 Comments: High risk of diabetes. 31-Jul-2012 PT (PROTHROMBIN TIME) Comments: Items in this order include: Draw Charge[i], Protime & INRINR value > 3.0 given to Estella by Beny Buckley patient have a artifical heart valve? No 13:32 ([facility]) (60320) 7. day Dosage 5.0 mg (Normal) 6. Saturday Dosage 5.0 mg (Normal) 5. Dosage 7.5 mg (Normal) 4. Saturday Dosage 5.0 mg (Normal) 3. Saturday Dosage 5.0 mg (Normal) 2. Saturday Dosage 7.5 mg (Normal) 1. Saturday Dosage 5.0 mg (Normal) INR 3.62 (Normal) PT 36.7 s (Abnormal) Range: 10.4-12.4 13:32 Routine Venipuncture Comments: Items in this order include: Draw Charge[i], Protime & INR (01147) Draw Drawn (Normal) 23-Jun-2012 PSA (PROSTATE SPECIFIC Comments: A copy of this report will be faxed to: Bettie Boswell in this order include: Draw Charge[i], Protime & INR, PSAPSA allowed more than once a year due to being a Diagonistic PSA not a screening PSA 15:50 ANTIGEN) (51365) PSA 8.05 ng/mL (Abnormal) Range: 0.00-4.00 15:50 PT (PROTHROMBIN TIME) Comments: A copy of this report will be faxed to: Bettie Boswell in this order include: Draw Charge[i], Protime & INR , PSAPSA allowed more than once a year due to being a Diagonistic PSA not a screening ([facility]) (28715) PSADoes patient have a artifical heart valve? No 5. Dosage Repeat mg (Normal) 4. Saturday Dosage 5.0 mg (Normal) 3. Saturday Dosage 5.0 mg (Normal) 2. Saturday Dosage 5.0 mg (Normal) 1. Saturday Dosage 7.5 mg (Normal) INR 1.53 (Normal) PT 16.2 s (Abnormal) Range: 10.4-12.4 15:50 Routine Venipuncture Comments: A copy of this report will be faxed to: Bettie Boswell in this order include: Draw Charge[i], Protime & INR , PSAPSA allowed more than once a year due to being a Diagonistic PSA not a screening PSA (91752) Draw Drawn (Normal) 13-May-2012 Draw Charge[i] Comments: A copy of this report will be faxed to: Bettie Boswell in this order include: PSA, Draw Charge[i]PSA allowed more than once a year due to being a Diagonistic PSA not a screening PSA 09:20 Draw Drawn (Normal) 28-Apr-2012 PSA (PROSTATE SPECIFIC Comments: please fax the results to dr. hema boswell; A copy of this report will be faxed to: Bettie Boswell in this order include: Draw Charge[i], Protime & INR, PSAplease fax the results to dr. hema boswell 14:28 ANTIGEN) ([id number]) PSA 16.45 ng/mL (Abnormal) Range: 0.00-4.00 14:28 PT (PROTHROMBIN TIME) Comments: Coumadin Dosage=5,5,5,7.5 Repeat. Took 7.5 on 04-27-12. ([facility]) (01296) 5. Dosage 7.5 Repeat mg (Normal) 4. Saturday Dosage 5.0 mg (Normal) 3. Saturday Dosage 5.0 mg (Normal) 2. Saturday Dosage 5.0 mg (Normal) 1. Saturday Dosage 7.5 mg (Normal) INR 2.17 (Normal) PT 22.7 s (Abnormal) Range: 10.4-12.4 14:28 Routine Venipuncture (64427) Draw Drawn (Normal) 13-May-2012 PSA (PROSTATE SPECIFIC Comments: A copy of this report will be faxed to: Bettie Boswell in this order include: PSA, Draw Charge[i]PSA allowed more than once a year due to being a Diagonistic PSA not a screening PSA 09:20 ANTIGEN) (06073) PSA 11.30 ng/mL (Abnormal) Range: 0.00-4.00 TSH (THYROID Comments: Items in this order include: TSH 16:40 STIMULATING HORMONE) (68431) TSH 1.36 uIU/ml (Normal) Range: 0.34-5.60 14:50 PT (PROTHROMBIN TIME) Comments: Items in this order include: Draw Charge[i], Basic Metabolic Panel, Hemoglobin A1C, Protime & INRLast Hbg A1C was ran 218 Days ago. Check by DL ([facility]) (16251) 5. Dosage Repeat mg (Normal) 4. Saturday Dosage 7.5 mg (Normal) 3. Saturday Dosage 5.0 mg (Normal) 2. Saturday Dosage 5.0 mg (Normal) INR 2.72 (Normal) PT 28.0 s (Abnormal) Range: 10.4-12.4 14:50 HEMOGLOBIN GLYCLATED Comments: please draw enough blood so if wants other lab ordered; Items in this order include: Draw Charge[i], Basic Metabolic Panel, Hemoglobin A1C, Protime & INRLast Hbg A1C was ran 218 Days ago. Check (HGB A1C) (82439) by DLplease draw enough blood so if dr wants other lab ordered A1C 6.0 % (Normal) Range: 4.6-6.2 14:50 BMP Comments: Items in this order include: Draw Charge[i], Basic Metabolic Panel, Hemoglobin A1C, Protime & INRLast Hbg A1C was ran 218 Days ago. Check by DL GLU 119 mg/dL (Abnormal) Range: 70-110 CA 9.4 mg/dL (Normal) Range: 8.4-10.2 eGFR 45.7 mL/min/1.73m2 Range: >60.0 (Abnormal) CREAT 1.6 mg/dL (Abnormal) Range: 0.6-1.3 OSMO 289 (Normal) Range: 275-295 BUN 23 mg/dL (Abnormal) Range: 7-18 AGAP 13.10 mmol/L (Normal) Range: 10.00-20.00 CO2 29.1 mmol/L (Normal) Range: 21.0-32.0 CL 104 mmol/L (Normal) Range: 98-107 K 4.2 mmol/L (Normal) Range: 3.5-5.0 NA 142 mmol/L (Normal) Range: 135-145 14:50 Routine Venipuncture Comments: Items in this order include: Draw Charge[i], Basic Metabolic Panel, Hemoglobin A1C, Protime & INRLast Hbg A1C was ran 218 Days ago. Check by DL (16536) Draw Drawn (Normal) DIGOXIN, DRUG ASSAY Comments: Items in this order include: CBC, Comprehensive Metabolic Panel, CKI, Digoxin, Draw Charge[i] 09:08 (03120) DIG 0.38 ng/mL (Abnormal) Range: 0.90-2.00 09:08 CK Comments: Items in this order include: CBC, Comprehensive Metabolic Panel, CKI, Digoxin, Draw Charge[i] CKI 143 U/L (Normal) Range: 39-308 09:08 CMP ([id number]) Comments: Items in this order include: CBC, Comprehensive Metabolic Panel, CKI, Digoxin, Draw Charge[i] AST 21 [iU]/L (Normal) Range: 10-42 ALT 34 [iU]/L (Normal) Range: 30-65 ALP 78 U/L (Normal) Range: 50-136 a/g ratio 1.36 (Normal) Range: 1.00-2.10 globulin 2.8 g/dL (Normal) Range: 2.2-3.9 ALB 3.8 g/dL (Normal) Range: 3.4-5.0 TP 6.6 g/dL (Normal) Range: 6.0-8.3 T.BILI 0.42 mg/dL (Normal) Range: 0.20-1.00 GLU 215 mg/dL (Abnormal) Range: 70-110 CA 8.9 mg/dL (Normal) Range: 8.4-10.2 eGFR 49.3 mL/min/1.73m2 Range: >60.0 (Abnormal) CREAT 1.5 mg/dL (Abnormal) Range: 0.6-1.3 OSMO 293 (Normal) Range: 275-295 BUN 25 mg/dL (Abnormal) Range: 7-18 AGAP 15.50 mmol/L (Normal) Range: 10.00-20.00 CO2 27.3 mmol/L (Normal) Range: 21.0-32.0 CL 102 mmol/L (Normal) Range: 98-107 K 3.8 mmol/L (Normal) Range: 3.5-5.0 NA 141 mmol/L (Normal) Range: 135-145 09:08 CBC-MALE- ORDER THIS Comments: Items in this order include: CBC, Comprehensive Metabolic Panel, CKI, Digoxin, Draw Charge[i] ONE! ([id number]) manual diff Not Indicated (Normal) mpv 6.84 fL (Normal) Range: 0.00-99.90 PLT 227.0 10*3/uL (Normal) Range: 150.0-450.0 RDW 12.3 % (Normal) Range: 11.5-14.5 MCHC 32.7 g/dL (Normal) Range: 31.0-36.0 MCH 30.0 pg (Normal) Range: 27.0-31.2 MCV 91.8 fL (Normal) Range: 80.0-97.0 HCT 43.1 % (Normal) Range: 39.0-54.0 HGB 14.10 g/dL (Normal) Range: 13.00-17.00 RBC 4.70 M/uL (Normal) Range: 4.60-6.20 Baso% 1.290 % (Abnormal) Range: 0.000-1.000 eos% 2.04 % (Normal) Range: 0.00-3.00 mono% 3.92 % (Normal) Range: 0.00-9.00 LYM% 16.20 % (Abnormal) Range: 20.00-40.00 nirmal% 76.60 % (Abnormal) Range: 55.00-75.00 Baso 0.100 10*3/uL (Normal) Range: 0.000-0.100 eos 0.157 10*3/uL (Normal) Range: 0.000-4.000 mono 0.30 10*3/uL (Normal) Range: 0.00-0.70 LYMPHS 1.25 10*3/uL (Normal) Range: 0.90-4.20 nirmal 5.93 10*3/uL (Normal) Range: 2.50-7.80 wbc 7.74 10*3/uL (Normal) Range: 4.50-10.50 16:45 Routine Venipuncture Comments: Items in this order include: Protime & INR, Draw Charge[i] (92589) Draw Drawn (Normal) 16:45 PT (PROTHROMBIN TIME) Comments: Items in this order include: Protime & INR, Draw Charge[i]Coumadin doasage=5,5,7.5 Repeat ([facility]) (75565) 7. Saturday Dosage 5.0 mg (Normal) 6. Saturday Dosage 7.5 mg (Normal) 5. Dosage 5.0 mg (Normal) 4. Saturday Dosage 5.0 mg (Normal) 3. Saturday Dosage 7.5 mg (Normal) 2. Saturday Dosage 7.5 mg (Normal) 1. Saturday Dosage 5.0 mg (Normal) INR 2.79 (Normal) PT 28.7 s (Abnormal) Range: 10.4-12.4 09:08 Draw Charge[i] Comments: Items in this order include: CBC, Comprehensive Metabolic Panel, CKI, Digoxin, Draw Charge[i] Draw Drawn (Normal) 23-Oct-2011 PSA (PROSTATE SPECIFIC Comments: A copy of this report will be faxed to: Bettie Boswell in this order include: Draw Charge[i], PSA 11:11 ANTIGEN) ([id number]) PSA 6.92 ng/mL (Abnormal) Range: 0.00-4.00 11:11 Routine Venipuncture Comments: A copy of this report will be faxed to: Bettie Boswell in this order include: Draw Charge[i], PSA (83408) Draw Drawn (Normal) 17-Oct-2011 Routine Venipuncture 10:18 ([id number]) Draw Drawn (Normal) 10:18 TESTOSTERONE, FREE, Comments: Items in this order include: Protime & INR, Draw Charge[i], TESTOSTERONE, FREE, BIOAVAILABLE, AND TOTAL, LC/MS/ MSTesting performed at: [facility] [place], [address] [address] [facility], [place], [address], Contact Manager: Michael Chávez MDQuest TOTAL, LC/MS/MS ALBUMIN,SERUM 4.4 g/dL (Normal) Range: 3.6-5.1 SEX HORMONE BINDING 34 nmol/L (Normal) Range: 22-77 GLOBULIN TESTOSTERONE,BIOAVAILAB 98.8 ng/dL (Abnormal) Range: 110.0-575.0 LE TESTOSTERONE, FREE 49.1 pg/mL (Normal) Range: 46.0-224.0 TESTOSTERONE, TOTAL, 384 ng/dL (Normal) Range: 250-1100 LC/MS/MS Comments: Aging men with clinically significant hypogonadal symptoms and testosterone values repeatedly in the range of the 200-300 ng/dL or less, may benefit from testosterone treatment after adequate risk and benefits counseling. 10:18 PT (PROTHROMBIN TIME) ([facility] [place]) ([address]39) 7. Saturday Dosage 5.0 mg (Normal) 6. Saturday Dosage 7.5 mg (Normal) 5. Dosage 5.0 mg (Normal) 4. Saturday Dosage 5.0 mg (Normal) 3. Saturday Dosage 7.5 mg (Normal) 2. Saturday Dosage 5.0 mg (Normal) 1. Saturday Dosage 5.0 mg (Normal) INR 1.78 (Normal) PT 17.4 s (Abnormal) Range: 10.4-12.4 08-Aug-2011 Draw Charge[i] 13:29 Draw Drawn (Normal) 13:29 HEMOGLOBIN GLYCLATED Comments: Items in this order include: Digoxin , Basic Metabolic Panel, Hemoglobin A1C, Draw Charge[i] (HGB A1C) (58672) A1C 6.1 % (Normal) Range: 4.6-6.2 13:29 BMP GLU 97 mg/dL (Normal) Range: 70-110 CA 9.1 mg/dL (Normal) Range: 8.4-10.2 eGFR 63.9 mL/min/1.73m2 Range: >60.0 (Normal) CREAT 1.2 mg/dL (Normal) Range: 0.6-1.3 OSMO 278 (Normal) Range: 275-295 BUN 19 mg/dL (Abnormal) Range: 7-18 AGAP 9.80 mmol/L (Abnormal) Range: 10.00-20.00 CL 101 mmol/L (Normal) Range: 98-107 CO2 31.7 mmol/L (Normal) Range: 21.0-32.0 K 4.5 mmol/L (Normal) Range: 3.5-5.0 NA 138 mmol/L (Normal) Range: 135-145 13:29 DIGOXIN, DRUG ASSAY ([id number]) DIG 0.85 ng/mL (Abnormal) Range: 0.90-2.00 07-Aug-2011 TESTOSTERONE, FREE, Comments: Items in this order include: TESTOSTERONE, FREE, BIOAVAILABLE, AND TOTAL, LC/MS/MSTesting performed at: [facility] [place], [address] [address] , [place] , [address], [place] 12:53 WEAKLY BOUND AND TOTAL ratory Director: Michael Chávez MD.[facility] ([id number]) ALBUMIN,SERUM 4.4 g/dL (Normal) Range: 3.6-5.1 SEX HORMONE BINDING 37 nmol/L (Normal) Range: 22-77 GLOBULIN TESTOSTERONE,BIOAVAILAB 110.6 ng/dL (Normal) Range: 110.0-575.0 LE TESTOSTERONE, FREE 55.0 pg/mL (Normal) Range: 46.0-224.0 TESTOSTERONE, TOTAL, 452 ng/dL (Normal) Range: 250-1100 LC/MS/MS Comments: Aging men with clinically significant hypogonadal symptoms and testosterone values repeatedly in the range of the 200-300 ng/dL or less, may benefit from testosterone treatment after adequate risk and benefits counseling. 11:08 Draw Charge[i] Comments: Items in this order include: Protime &amp ; INR, Draw Charge[i] Draw Drawn (Normal) 11:08 PT (PROTHROMBIN TIME) Comments: no change in coumadin dose; Items in this order include: Protime & INR, Draw Charge[i]no change in coumadin dose ([facility] ([id number]) 7. Saturday Dosage 7.5 mg (Normal) 6. Saturday Dosage 5.0 mg (Normal) 5. Dosage 5.0 mg (Normal) 4. Saturday Dosage 7.5 mg (Normal) 3. Saturday Dosage 5.0 mg (Normal) 2. Saturday Dosage 5.0 mg (Normal) 1. Saturday Dosage 7.5 mg (Normal) INR 2.47 (Normal) PT 23.9 s (Abnormal) Range: 10.4-12.4 14-May-2011 Draw Charge[i] Comments: Items in this order include: Basic Metabolic Panel, Protime & INR, Draw Charge[i] 16:27 Draw Drawn (Normal) 16:27 PT (PROTHROMBIN TIME) Comments: Items in this order include: Basic Metabolic Panel, Protime & INR, Draw Charge[i] ([facility]) ([id number]) 7. Saturday Dosage 5.0 mg (Normal) 5. Dosage 7.5 mg (Normal) 6. Saturday Dosage 5.0 mg (Normal) 4. Saturday Dosage 5.0 mg (Normal) 3. Saturday Dosage 5.0 mg (Normal) 2. Saturday Dosage 7.5 mg (Normal) 1. Saturday Dosage 7.5 mg (Normal) INR 1.78 (Normal) PT 17.4 s (Abnormal) Range: 10.4-12.4 16:27 Basic Metabolic Panel Comments: Items in this order include: Basic Metabolic Panel, Protime & INR, Draw Charge[i] GLU 135 mg/dL (Abnormal) Range: 70-110 CA 9.0 mg/dL (Normal) Range: 8.4-10.2 eGFR 58.3 mL/min/1.73m2 Range: >60.0 (Abnormal) CREAT 1.3 mg/dL (Normal) Range: 0.6-1.3 BUN 21 mg/dL (Abnormal) Range: 7-18 OSMO 283 (Normal) Range: 275-295 AGAP 15.50 mmol/L (Normal) Range: 10.00-20.00 CO2 25.8 mmol/L (Normal) Range: 21.0-32.0 CL 102 mmol/L (Normal) Range: 98-107 K 4.3 mmol/L (Normal) Range: 3.5-5.0 NA 139 mmol/L (Normal) Range: 135-145 10-Apr-2011 Draw Charge[i] Comments: Items in this order include: Digoxin , Draw Charge[i] 15:17 Draw Drawn (Normal) 15:19 PSA (PROSTATE SPECIFIC Comments: fax results to dr boswell; A copy of this report will be faxed to: Bettie Boswell in this order include: PSA ANTIGEN) ([id number]) PSA 5.95 ng/mL (Abnormal) Range: 0.00-4.00 CBC-MALE- ORDER THIS Comments: Items in this order include : Hemoglobin A1C, Comprehensive Metabolic Panel, CBC 11:56 ONE! ([id number]) manual diff Not Indicated (Normal) mpv 7.65 fL (Normal) Range: 0.00-99.90 PLT 236.0 10*3/uL (Normal) Range: 150.0-450.0 RDW 13.0 % (Normal) Range: 11.5-14.5 MCHC 33.2 g/dL (Normal) Range: 31.0-36.0 MCH 30.1 pg (Normal) Range: 27.0-31.2 MCV 90.5 fL (Normal) Range: 80.0-97.0 HCT 39.2 % (Normal) Range: 39.0-54.0 HGB 13.00 g/dL (Normal) Range: 13.00-17.00 RBC 4.33 M/uL (Abnormal) Range: 4.60-6.20 Baso% 1.110 % (Abnormal) Range: 0.000-1.000 eos% 1.87 % (Normal) Range: 0.00-3.00 mono% 6.21 % (Normal) Range: 0.00-9.00 LYM% 19.60 % (Abnormal) Range: 20.00-40.00 nirmal% 71.20 % (Normal) Range: 55.00-75.00 Baso 0.069 10*3/uL (Normal) Range: 0.000-0.100 eos 0.117 10*3/uL (Normal) Range: 0.000-4.000 mono 0.39 10*3/uL (Normal) Range: 0.00-0.70 LYMPHS 1.22 10*3/uL (Normal) Range: 0.90-4.20 nirmal 4.45 10*3/uL (Normal) Range: 2.50-7.80 wbc 6.24 10*3/uL (Normal) Range: 4.50-10.50 11:56 CMP ([id number]) Comments: Items in this order include: Hemoglobin A1C, Comprehensive Metabolic Panel, CBC AST 20 [iU]/L (Normal) Range: 10-42 ALT 33 [iU]/L (Normal) Range: 30-65 ALP 76 U/L (Normal) Range: 50-136 a/g ratio 1.36 (Normal) Range: 1.00-2.10 globulin 2.8 g/dL (Normal) Range: 2.2-3.9 ALB 3.8 g/dL (Normal) Range: 3.4-5.0 TP 6.6 g/dL (Normal) Range: 6.0-8.3 T.BILI 0.45 mg/dL (Normal) Range: 0.20-1.00 GLU 91 mg/dL (Normal) Range: 70-110 CA 8.9 mg/dL (Normal) Range: 8.4-10.2 eGFR 58.3 mL/min/1.73m2 Range: >60.0 (Abnormal) CREAT 1.3 mg/dL (Normal) Range: 0.6-1.3 OSMO 273 (Abnormal) Range: 275-295 BUN 17 mg/dL (Normal) Range: 7-18 AGAP 9.70 mmol/L (Abnormal) Range: 10.00-20.00 CL 101 mmol/L (Normal) Range: 98-107 CO2 29.4 mmol/L (Normal) Range: 21.0-32.0 K 4.1 mmol/L (Normal) Range: 3.5-5.0 NA 136 mmol/L (Normal) Range: 135-145 10-Apr-2011 DIGOXIN, DRUG ASSAY Comments: Items in this order include: Digoxin, Draw Charge[i] 15:17 ([id number]) DIG 1.18 ng/mL (Normal) Range: 0.90-2.00 HEMOGLOBIN GLYCLATED Comments: Items in this order include: Hemoglobin A1C, Comprehensive Metabolic Panel, CBC 11:56 (HGB A1C) ([id number]) A1C 6.6 % (Abnormal) Range: 4.6-6.2 Comments: Consistent with diabetes. 13:48 PT (PROTHROMBIN TIME) Comments: change to coumadin 5mg x 2 day then 7.5mg x1 repeat the cycle; Items in this order include: Protime & INR, Draw Charge[i]cyclechange to coumadin 5mg x 2 day then 7.5mg x1 repeat the ([facility]) ([id number]) 6. Saturday Dosage 7.5 mg (Normal) 7. Saturday Dosage 5.0 mg (Normal) 5. Dosage 5.0 mg (Normal) 4. Saturday Dosage 5.0 mg (Normal) 2. Saturday Dosage 5.0 mg (Normal) 3. Saturday Dosage 7.5 mg (Normal) 1. Saturday Dosage 5.0 mg (Normal) INR 1.55 (Normal) PT 15.2 s (Abnormal) Range: 10.4-12.4 PSA (PROSTATE SPECIFIC Comments: A copy of this report will be faxed to: Bettie Boswell in this order include: Protime & INR, PSA, Draw Charge[i] 09:43 ANTIGEN) ([id number]) PSA 5.84 ng/mL (Abnormal) Range: 0.00-4.00 09:43 PT (PROTHROMBIN TIME) Comments: no change in coumadin; no change in coumadin ([facility]) ([id number]) 7. Saturday Dosage 7.5 mg (Normal) 6. Saturday Dosage 5.0 mg (Normal) 5. Dosage 7.5 mg (Normal) 4. Saturday Dosage 5.0 mg (Normal) 3. Saturday Dosage 5.0 mg (Normal) 1. Saturday Dosage 5.0 mg (Normal) 2. Saturday Dosage 7.5 mg (Normal) INR 3.45 (Normal) PT 32.9 s (Abnormal) Range: 10.4-12.4 23-Nov-2010 PT (PROTHROMBIN TIME) 10:03 ([facility]) ([id number]) 6. Saturday Dosage 7.5 mg (Normal) 7. Saturday Dosage 5 mg (Normal) 1. Saturday Dosage 5 mg (Normal) 2. Saturday Dosage 7.5 mg (Normal) 3. Saturday Dosage 5 mg (Normal) 4. Saturday Dosage 7.5 mg (Normal) 5. Dosage 5 mg (Normal) INR 2.16 (Normal) PT 21.0 s (Abnormal) Range: 10.4-12.4 19-Oct-2010 PT (PROTHROMBIN TIME) 15:16 ([facility]) ([id number]) 6. Saturday Dosage 5 mg (Normal) 7. Saturday Dosage 7.5 mg (Normal) 3. Saturday Dosage 7.5 mg (Normal) 4. Saturday Dosage 5 mg (Normal) 5. Dosage 7.5 mg (Normal) 1. Saturday Dosage 7.5 mg (Normal) 2. Saturday Dosage 5 mg (Normal) INR 2.13 (Normal) PT 20.7 s (Abnormal) Range: 10.4-12.4 12-Sep-2010 PT (PROTHROMBIN TIME) 11:03 ([facility]) ([id number]) INR 2.57 (Normal) PT (PROTHROMBIN TIME) 24.8 s (Abnormal) Range: 11.5-13.5 22-Aug-2010 PT (PROTHROMBIN TIME) 13:41 ([facility]) (15149) 09-Aug-2010 PSA, MEDICARE ([id number]) Comments: please fax to dr hema boswell 09:54 PSA (Medicare) 4.83 ng/mL (Abnormal) Range: 0 - 4 09:34 PT (PROTHROMBIN TIME) ([facility]) (03509) INR 2.68 (Normal) PT (PROTHROMBIN TIME) 25.8 s (Abnormal) Range: 11.5-13.5 27-Jun-2010 PT (PROTHROMBIN TIME) 08:38 ([facility]) (09703) 26-Jun-2010 PT (PROTHROMBIN TIME) 16:21 ([facility]) ([id number]) INR 1.89 (Normal) PT (PROTHROMBIN TIME) 18.4 s (Abnormal) Range: 11.5-13.5 Treatment Plan PT (PROTHROMBIN TIME) ([facility]) (94209); Ordered: 12/27/2014Routine Venipuncture ( 25024); Ordered: 12/27/2014 Advance Directives Encounters Lab entry only - Encounter for long-term (current) use of anticoagulants ( V58.61 | Z79.01) On 29-Nov-2014 [facility] 12:31 to 15:09 Medication Entry - Diabetes mellitus (250.00 | E11.9) On 12-Nov-2014 [facility] 11:46 to 11:53 Medication Entry - Cellulitis, leg (682.6 | L03.119) On 11-Nov-2014 [facility] 09:48 to 10:00 Office Visit - Gout (274.9 | M10.9), Cellulitis, leg (682.6 | L03.119), Encounter for long-term (current) use of anticoagulants (V58.61 | Z79.01) On Encounter Reason: Transition into care - The patient is transitioning into care from an emergency room (was seen on 10/16/14 for gout & cellulitis in the right foot , finished with the antiboitic , states the right fo 11:37 to 12 :53 ot is much better, maybe a little swollen yet .) and a summary of care was reviewed . Note for "Transition into care": He feels things are improved.[facility] Historical Summary On 27-Oct-2014 [facility] 15:03 to 15:08 Lab entry only - Fibrillation, atrial (427.31), Encounter for long-term ( current) use of anticoagulants (V58.61 | Z79.01) On 18-Oct-2014 [facility] 17:08 to 17:09 Medication Entry - Gout (274.9 | M10.9) On 12-Oct-2014 [facility] 16:17 to 16:22 Lab entry only - Encounter for long-term (current) use of anticoagulants ( V58.61 | Z79.01) On 21-Sep-2014 [facility] 15:31 to 15:33 Radiology Visit - Carotid stenosis (433.10 | I65.29) On 14-Sep-2014 [facility] 09:33 to 09:36 Lab entry only - Encounter for long-term (current) use of anticoagulants ( V58.61 | Z79.01) On 24-Aug-2014 [facility] 16:31 to 16:34 Office Visit - Health education (V65.40 | Z71.9), Prevnar (PCV13)FOR MEDICARE USE ONLY Pneumovax injection (V03.82) 90746, Encounter for long-term ( current) use of anticoagulants (V58.61 | Z79.01), On 12-Aug-2014 brillation, atrial (427.31), Elevated PSA (790.93), Diabetes mellitus (250.00 | E11.9), Obstructive sleep apnea (327.23), Disorder of kidney and ureter ( 593.9 | N28.9), Osteoarthritis, multiple sites (7 09:45 to 11:22 15.89 | M15.9), Hypertrophic and atrophic condition of skin (701.9 | L98.9), Carotid stenosis (433.10 | I65.29) Encounter Reason: Follow up for chronic condition - The patient feels well with minor complaints (Here for a 6 month follow up with Dr. Nneka M.D. last colonoscopy was 03/08/2010 , amor colonoscopy with Dr. Nneka M.D. on 09/29/2014 colon screening . Then bilateral knees hurt the left is worse. States both ankle area skin is brown in color from pvd. ). Note for "Follow up for chronic condition(s)": also brought the resu lts from the [facility] screening. He mentions the "discoloration" of ankles.[facility] Historical Summary On 11-Aug-2014 [facility] 16:16 to 16:19 Lab entry only - Fibrillation, atrial (427.31), Encounter for long-term ( current) use of anticoagulants (V58.61 | Z79.01) On 06-Aug-2014 [facility] 16:41 to 16:43 Medication Entry - Benign essential hypertension (401.1 | I10) On 21-Jun-2014 [facility] 11:12 to 11:14 Lab entry only - Encounter for long-term (current) use of anticoagulants ( V58.61 | Z79.01) On 03-Jun-2014 [facility] 16:13 to 16:15 Lab entry only - Encounter for long-term (current) use of anticoagulants ( V58.61 | Z79.01) On [facility] 13:22 to 13:23 Lab entry only - Elevated PSA (790.93), Encounter for long-term (current) use of anticoagulants (V58.61 | Z79.01) On [facility] 14:27 to 14:28 Office Visit - Foot pain, left (729.5 | M79.672), Diabetes mellitus (250.00 | E11.9), Encounter for long-term (current) use of anticoagulants (V58.61 | Z79.01 ), Fibrillation, atrial (427.31), Benign ess On ential hypertension (401.1 | I10), Benign prostatic hypertrophy without lower urinary tract symptoms (LUTS) (600.00) 13:34 to 14:25 Encounter Reason: Foot pain - The onset of the foot pain has been acute and has been occurring in a persistent pattern for 4 days. The course has been decreasing (A little better today). The foot pain is described as mod erate. Note for "Foot pain": Pt relates he starting having pain, redness and swelling in his L great toe. He says it is a little better today but still painful. He did not injure it that he can recall. We have considered gout I believe in the past., [ADDITIONAL REASON] Follow up for chronic condition - The patient feels well with minor complaints (Pt is here for a 3 month follow up. He is doing well with minor c/o of L great toe pain.). Note for " Follow up for chronic condition(s)": It is worse first thing in the morning and on stairs. [facility] Historical Summary On 28-Dec-2013 [facility] 12:26 to 12:29 Medication Entry - Encounter for long-term (current) use of anticoagulants ( V58.61 | Z79.01), Diabetes mellitus (250.00 | E11.9), Fibrillation, atrial ( 427.31) On 03-Nov-2013 [facility] 09:01 to 11:53 Medication Entry - Fibrillation, atrial (427.31), Diabetes mellitus (250.00 | E11.9) On 30-Oct-2013 [facility] 15:55 to 16:00 Lab entry only - Encounter for long-term (current) use of anticoagulants ( V58.61 | Z79.01) On 27-Oct-2013 [facility] 17:57 to 17:59 Office Visit - Need for prophylactic vaccination and inoculation against influenza (V04.81), Renal lithiasis (592.0 | N20.0), Encounter for long-term ( current) use of anticoagulants (V58.61 | Z79.01), F On 26-Oct-2013 ibrillation, atrial (427.31), Osteoarthritis, multiple sites (715.89 | M15.9), Hydronephrosis, left (591 | N13.30) 16:16 to 17:14 Encounter Reason: Transition into care - The patient is transitioning into care from a hospital (Here for a follow with Dr. nneka M.D. after being in the hospital at [facility] on 10/16/13 & discharged on 10/17/13 dx jasmeet diaz, inr was done prior to visit.) . Note for "Transition into care": He passed a kidney stone a week ago.[facility] Historical Summary On 23-Oct-2013 [facility] 14:42 to 14:45 Lab entry only - Encounter for long-term (current) use of anticoagulants ( V58.61 | Z79.01) On 20-Oct-2013 [facility] 16:31 to 16:33 Lab entry only - Encounter for long-term (current) use of anticoagulants ( V58.61 | Z79.01) On 16-Sep-2013 [facility] 10:14 to 10:15 Lab entry only - Elevated PSA (790.93) On 15-Sep-2013 [facility] 11:11 to 11:12 Lab entry only - Encounter for long-term (current) use of anticoagulants ( V58.61 | Z79.01) On 07-Aug-2013 [facility] 14:32 to 14:33 Lab entry only - Benign essential hypertension (401.1 | I10), Diabetes mellitus (250.00 | E11.9) On 07-Aug-2013 [facility] 11:18 to 11:19 Lab entry only - Encounter for long-term (current) use of anticoagulants ( V58.61 | Z79.01) On 01-May-2013 [facility] 10:33 to 10:38 Office Visit - Diabetes mellitus (250.00 | E11.9), 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 | N28.9), Obstructive sleep apnea (327.23), Adjustment disorder with depressed mood (309.0 | F43.21), Benign prost On 30-Apr-2013 atic hypertrophy with urinary frequency (600.01 | N40.1), Fibrillation, atrial (427.31), Encounter for long-term (current) use of anticoagulants (V58.61 | Z79.01), Benign essential hypertension (401.1 | I10) 10:20 to 12:08 Encounter Reason: Atrial Fibrillation - This was diagnosed as chronic atrial fibrillation. Note for "Atrial fibrillation": here for a 6 month follow up with Dr. Nneka M.D. He did miss some meds while he traveled.[facility] Historical Summary On 29-Apr-2013 [facility] 11:46 to 11:49 Lab entry only - Encounter for long-term (current) use of anticoagulants ( V58.61 | Z79.01) On [facility] 16:39 to 16:42 Lab entry only - Encounter for long-term (current) use of anticoagulants ( V58.61 | Z79.01) On [facility] 19:40 to 19:42 Lab entry only - Elevated PSA (790.93) On [facility] 12:03 to 12:07 Office Visit - 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 | J40), Cough (786.2 | R05) On Dec-2012 Encounter Reason: Cough - Symptoms include cough, dyspnea, wheezing, chills, fever, runny nose, stuffy nose and myalgias, while symptoms do not include sore throat, pleuritic chest pain, chest pain or vomiting. The cough 15:16 to 15:53 is described as barky, brassy, hacking, honking, loose, tight, wheezy and productive. Cough onset was sudden 2 week(s) ago. Note for "Cough": He has not had an antibiotic.[facility] Lab entry only - Encounter for long-term (current) use of anticoagulants ( V58.61 | Z79.01) On 16-Dec-2012 [facility] 18:21 to 18:23 Lab entry only - Encounter for long-term (current) use of anticoagulants ( V58.61 | Z79.01) On 27-Nov-2012 [facility] 16:52 to 16:53 Lab entry only - Encounter for long-term (current) use of anticoagulants ( V58.61) On 26-Nov-2012 [facility] 15:04 to 15:05 Office Visit - Encounter for long-term (current) use of anticoagulants (V58.61) , Fibrillation, atrial (427.31), Edema (Renamed from Accumulation of fluid in tissues) (782.3 | R60.9), Disorder of kidney On 30-Oct-2012 and ureter (593.9 | N28.9), Diabetes mellitus (250.00 | E11.9), Benign prostatic hypertrophy without lower urinary tract symptoms (LUTS) (600.00), Stasis dermatitis (Renamed from Dermatitis, stasis) (454.1 | I83.10) 10:13 to 20:30 Encounter Reason: Follow up for chronic condition - The patient feels well with minor complaints (here for a 3 month follow up with Dr. Nneka M.D. , complains of both lower legs skin color brown has increased & my ankle muscles are more sore .). Note for "Follow up for chronic condition(s)" : It is worse first thing in the morning and on stairs.[facility] Historical Summary On 29-Oct-2012 [facility] 16:15 to 16:17 Lab entry only - Encounter for long-term (current) use of anticoagulants ( V58.61) On 15-Oct-2012 [facility] 09:51 to 09:57 Lab entry only - Encounter for long-term (current) use of anticoagulants ( V58.61), Elevated PSA (790.93) On 14-Oct-2012 [facility] 10:25 to 10:26 Lab entry only - Encounter for long-term (current) use of anticoagulants ( V58.61) On 12-Sep-2012 [facility] 13:44 to 13:45 Medication Entry - Edema (782.3), Fibrillation, atrial (427.31) On 20-Aug-2012 [facility] 11:10 to 11:12 Medication Entry - Fibrillation, atrial (427.31), Edema (782.3) On 19-Aug-2012 [facility] 17:29 to 18:11 Medication Entry - Encounter for long-term (current) use of anticoagulants ( V58.61), Fibrillation, atrial (427.31), Diabetes mellitus (250.00) On 2011 [facility] 17:44 to 17:53 Office Visit - 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), Inflamed seborrheic keratosis (702.11), Hyperglycemia (790.29), Encounter for long-term (current) use of anticoagulants (V58.61), Fibrillation, atrial (427.31) On 01-Aug-2012 Encounter Reason: Follow up for chronic condition - The patient feels well with minor complaints (here today for a 3 month follow up with Dr. Romero ) .[facility] 09:34 to 10:39 Medication Entry - Encounter for long-term (current) use of anticoagulants ( V58.61) On 31-Jul-2012 [facility] 18:21 to 18:22 Historical Summary On 31-Jul-2012 [facility] 11:40 to 11:42 Lab entry only - Encounter for long-term (current) use of anticoagulants ( V58.61) On 23-Jun-2012 [facility] 18:47 to 18:52 Lab entry only - Elevated PSA (790.93), Encounter for long-term (current) use of anticoagulants (V58.61) On 23-Jun-2012 [facility] 15:48 to 15:53 Office Visit - Adjustment disorder with depressed mood (309.0), Encounter for long-term (current) use of anticoagulants (V58.61), Elevated PSA (790.93) On Encounter Reason: Follow up for chronic condition - The patient feels well with minor complaints (here for a 6 week follow up visit do to a new medication but did not start the medication).[facility] 11:19 to 13: 39 Historical Summary On 30-Apr-2012 [facility] 11:50 to 11:52 Lab entry only - Encounter for long-term (current) use of anticoagulants ( V58.61) On 28-Apr-2012 [facility] 17:23 to 17:26 Lab entry only - Elevated PSA (790.93), Encounter for long-term (current) use of anticoagulants (V58.61) On 28-Apr-2012 [facility] 14:19 to 14:22 Office Visit - Hyperglycemia (790.29), Fibrillation, atrial (427.31), Adjustment disorder with depressed mood (309.0), Encounter for long-term ( current) use of anticoagulants (V58.61), Obstructive sleep On apnea (327.23), 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), Malaise and fatigue ( 780.79), Elevated PSA (790.93) 14:51 to 20:25 Encounter Reason: Follow up for chronic condition - The patient feels well with minor complaints (here today for a 6 month follow up appt. with dr. romero , had lab done prior to appt today).[facility] Lab entry only - Edema (782.3), Hyperglycemia (790.29), Encounter for long- term (current) use of anticoagulants (V58.61) On [facility] 11:06 to 11:14 Lab entry only - Elevated PSA (790.93), Fibrillation, atrial (427.31), Edema ( 782.3) On [facility] 09:02 to 09:05 Lab entry only - Encounter for long-term (current) use of anticoagulants ( V58.61) On [facility] 16:44 to 16:45 Medication Entry On 26-Oct-2011 [facility] 13:30 to 13:32 Lab entry only - Elevated PSA (790.93) On 23-Oct-2011 [facility] 11:01 to 11:04 Lab entry only - Encounter for long-term (current) use of anticoagulants ( V58.61), Low testosterone (257.2) On 17-Oct-2011 [facility] 10:15 to 10:17 Medication Entry - Fibrillation, atrial (427.31) On 04-Oct-2011 [facility] 09:26 to 09:38 Medication Entry - Fibrillation, atrial (427.31), Edema (782.3), Encounter for long-term (current) use of anticoagulants (V58.61), Benign prostatic hypertrophy without lower urinary tract symptoms (LUTS) (600.00) On 02-Oct-2011 [facility] 18:56 to 19:02 Medication Entry - Encounter for long-term (current) use of anticoagulants ( V58.61), Fibrillation, atrial (427.31), Edema (782.3) On 26-Sep-2011 [facility] 11:06 to 11:11 Medication Entry - Fibrillation, atrial (427.31), Encounter for long-term ( current) use of anticoagulants (V58.61) On 24-Sep-2011 [facility] 10:41 to 10:49 Lab entry only - Low testosterone (257.2) On 10-Aug-2011 [facility] 13:03 to 13:05 Lab entry only - Hyperglycemia (790.29), Encounter for long-term (current) use of anticoagulants (V58.61), Fibrillation, atrial (427.31) On 08-Aug-2011 [facility] 13:27 to 13:29 Office Visit - Fibrillation, atrial (427.31), Encounter for long-term (current ) use of anticoagulants (V58.61), 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), Elevated PSA (790.93), Benign prostatic hypertrophy On 07-Aug-2011 without lower urinary tract symptoms (LUTS) (600.00), Edema (782.3), Hyperglycemia (790.29), Malaise and fatigue (780.79), Obstructive sleep apnea ( 327.23) 11:04 to 13:09 Encounter Reason: Atrial Fibrillation - The last clinic visit was 2 month(s) ago. Symptoms do not include palpitations, dizziness, syncope, shortness of breath or diaphoresis. The patient describes this as unchanged. Ass ociated symptoms do not include chest pain. Current treatment includes calcium antagonists and digoxin (diuretic and harriett inhibitor). By report there is good compliance with treatment., [ADDITIONAL REASON] Fatigue - Symptoms include fatigue, while symptoms do not include poor sleep (uses CPAP nightly). Onset was 1 year(s) ago. Symptoms are exacerbated by taking medication. The patient is not currently being treated for this problem. Pertinent medical history includes obstructive sleep apnea. Note for "Fatigue": Feels he 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." [facility] Historical Summary On 06-Aug-2011 [facility] 12:22 to 12:24 Medication Entry - Fibrillation, atrial (427.31) On 05-Jun-2011 [facility] 08:54 to 08:59 Lab entry only - Encounter for long-term (current) use of anticoagulants ( V58.61) On 15-May-2011 [facility] 18:48 to 18:50 Office Visit - Edema (782.3), Encounter for long-term (current) use of anticoagulants (V58.61), Ankle pain, right (719.47), Benign prostatic hypertrophy without lower urinary tract symptoms (LUTS) (600. On 14-May-2011 00), 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), Need for prophylactic vaccination and inoculation against influenza (V04.81) 15:34 to 16:36 Encounter Reason: Follow up for chronic condition - The patient feels well with minor complaints (1. states I'am not taking the diltiazem hcl er 240mg one daily since last jun 2010.2. states my feet are hurting every day , and both feet & my right ankle & my left knee bothers me some 3. I have 3 different moles to show 4. states I have sleep apnea & I use a cpap machine at night). The patient has been comp liant with instructions. Current medication use: no side effects. The patient sleeps an average of 7 hours per night. Impact of disease: no emotional impact. Nutrition: balanced diet. The reason for the follow up is diabetes, hypertension, cardiovascular disorder and other.[facility] Medication Entry - Benign prostatic hypertrophy without lower urinary tract symptoms (LUTS) (600.00) On 19-Apr-2011 [facility] 08:49 to 08:51 Lab entry only - Benign prostatic hypertrophy without lower urinary tract symptoms (LUTS) (600.00) On 10-Apr-2011 [facility] 15:15 to 15:19 Office Visit - Elevated PSA (790.93), Encounter for long-term (current) use of anticoagulants (V58.61), Hyperglycemia (790.29), Disorder of kidney and ureter ( 593.9), Fibrillation, atrial (427.31), Rolo On a (782.3), Benign prostatic hypertrophy without lower urinary tract symptoms ( LUTS) (600.00) 14:00 to 15:19 Encounter Reason: Follow up, Laboratory Test Results - Lab results: abnormal coagulation panel (also 3 weeks ago pt po in was hypotensive & was instructed to stop the lisinopril 2omg daily then to follow up in the of fice with appt had inr drawn today prior o appt 1. regarding my urine about every fourth day states I'am incontent the first thing in the morning has finished antibotic x [address] boswell plans on seeing dr. boswell the middle of apr.). [facility] Historical Summary On [facility] 16:05 to 16:18 Lab entry only - Encounter for long-term (current) use of anticoagulants ( V58.61) On [facility] 17:34 to 17:36 Lab entry only - Encounter for long-term (current) use of anticoagulants ( V58.61), Elevated PSA (790.93) On [facility] 09:42 to 09:43 Lab entry only - Encounter for long-term (current) use of anticoagulants ( V58.61) On 24-Nov-2010 [facility] 08:55 to 08:57 Lab entry only - Encounter for long-term (current) use of anticoagulants ( V58.61) On 20-Oct-2010 [facility] 14:42 to 14:46 Historical Summary - Encounter for long-term (current) use of anticoagulants ( V58.61) On 13-Sep-2010 [facility] 10:53 to 10:59 Historical Summary 12-Sep-2010 to 13-Sep-2010 [facility] Lab entry only - Encounter for long-term (current) use of anticoagulants ( V58.61) On 14-Aug-2010 [facility] 17:44 to 17:49 Historical Summary - Elevated PSA (790.93) 09-Aug-2010 to 15-Aug-2010 [facility] Lab entry only - Encounter for long-term (current) use of anticoagulants ( V58.61) 27-Jun-2010 to 28-Jun-2010 [facility] Lab entry only - Encounter for long-term (current) use of anticoagulants ( V58.61) On 26-Jun-2010 [facility] 16:21 to 22:23 Insurance Vijay Yuan; gwen guarantorMedicare [employer]
--- OUTSIDE RECORDS SUMMARY | 2017-10-22 17:34 | External Medical Summary | Continuity of Care Document ---
:1940 Author Organization [facility] Address [address] [place] [address] Phone Care Team Providers Name Role Phone James Romero MD Primary Care Provider James Romero MD Unavailable Judi Chávez Unavailable Unavailable Nohelia Price Unavailable Unavailable Unavailable Unavailable History of Present Illness No History Of Present Illness Information Available Problems Name Dates Details Edema (Renamed from Accumulation of fluid in tissues) (782.3, R60.9) Status : Active Adjustment disorder with depressed mood (309.0, F43.21) Status: Active Ankle pain, right (719.47) Status: Active Benign essential hypertension (401.1, I10) Status: Active Benign prostatic hypertrophy with urinary frequency (600.01, N40.1) Status: Active Benign prostatic hypertrophy without lower urinary tract symptoms (LUTS) ( 600.00) Status: Active Hyperglycemia (Renamed from Blood glucose elevated) (790.29, R73.9) Status: Active Cough (786.2, R05) Status: Active Stasis dermatitis (Renamed from Dermatitis, stasis) (454.1, I83.10) Status: Active Diabetes mellitus (250.00, E11.9) Status: Active 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, 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 Elevated PSA (790.93) Status: Active Encounter for long-term (current) use of anticoagulants (V58.61, Z79.01) Status: Active Fibrillation, atrial (427.31) Status: Active Foot pain, left (729.5, M79.672) Status: Active Hydronephrosis, left (591, N13.30) Status: Active Inflamed seborrheic keratosis (702.11, L82.0) Status: Active 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, J40) Status: Active Low testosterone (257.2) Status: Active Malaise and fatigue (780.79, R53.81) Status: Active Need for prophylactic vaccination and inoculation against influenza (V04.81) Status: Active 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, 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 Obstructive sleep apnea (327.23) Status: Active Osteoarthritis, multiple sites (715.89, M15.9) Status: Active Renal lithiasis (592.0, N20.0) Status: Active Medications Name Dates Details CIPRO, 500MG (Oral Tablet) - Historical Medication Active Comments: started on 10/17/13 after being dismissed from [facility] for kidney stone by cac 1 two times daily DIGOXIN, 0.25MG (Oral Tablet) 1 Tablet daily for 90 days Quantity: 90 Refills: 4 Ordered:03-Nov-2013 Nohelia Price Started 03-Nov-2013 ActiveDILTIAZEM HCL ER, 240MG (Oral Capsule Extended Release 24 Hour) 1 Capsule ER 24HR daily for 90 days Quantity: 90 Refills: 4 Ordered:03-Nov-2013 Nohelia Price Started 03-Nov-2013 ActiveFLOMAX, 0.4MG (Oral Capsule) 1 Capsule daily at supper for 90 days Quantity: 90 Refills: 4 Ordered:02-Oct-2011 Rosalie Jones Started 02-Oct-2011 ActiveLISINOPRIL, 10MG (Oral Tablet) one tab Tablet daily for 90 days Quantity: 90 Refills: 4 Ordered:30-Apr-2013 Rosalie Jones Started 30-Apr-2013 Active Comments:The dose is being lowered from 20mg to 10mg METFORMIN HCL, 500MG (Oral Tablet) 1 Tablet daily for 90 days Quantity: 90 Refills: 4 Ordered:03-Nov-2013 Nohelia Price Started 03-Nov-2013 ActiveNORCO, 5-325MG (Oral Tablet) - Historical Medication 1 take one tablet every four hours as needed for pain Active Comments:Medication taken as needed. 10/17/13 dx kidney stone from being discharged from [facility] PROMETHAZINE-DM, 6.25-15MG/5ML (Oral Syrup) 1-2 tsp Syrup Syrup every four hours, as needed for 10 days Quantity: 4 Refills: 1 Ordered:02-Jan-2013 Robert Rosalie Started 02-Jan-2013 Active Comments:Medication taken as needed. TRIAMTERENE-HCTZ, 37.5-25MG (Oral Capsule) - Historical Medication PRN ActiveWARFARIN SODIUM, 5MG (Oral Tablet) one Tablet daily for 90 days Quantity: 135 Refills: 4 Ordered:08-Dec-2012 James Romero MD Started 08-Dec-2012 ActiveBACTRIM DS, 800-160MG (Oral Tablet) - Historical Medication 1 two times daily Inactive Comments:04-30-[address] boswell CITALOPRAM HYDROBROMIDE, 20MG (Oral Tablet) 1 Tablet daily for 30 days Quantity: 30 Refills: 2 Ordered:01-May-2012 Nohelia Price Started Ended 01-May-2012 Inactive Comments:May increase to 2 in 10 days, if able and can refill with 40mg COLCHICINE-PROBENECID, 0.5-500MG (Oral Tablet) 1 (one) Tablet two times daily, as needed for gout flare for 14 days Quantity: 30 Refills: 0 Ordered: James Romero MD Started Ended Inactive Comments:Medication taken as needed. DIGOXIN, 0.25MG (Oral Tablet) 1 Tablet daily for 90 days Quantity: 90 Refills: 4 Ordered:30-Oct-2012 Nohelia Price Started 19-Aug-2012 Ended 30-Oct-2012 InactiveDILTIAZEM HCL, 240MG (Oral Capsule Extended Release 24 Hour) - Historical Medication daily InactiveDOXAZOSIN MESYLATE, 4MG (Oral Tablet) - Historical Medication daily InactiveDYAZIDE, 37.5-25MG (Oral Capsule) 1 Capsule every 2-3 days for 30 days Quantity: 30 Refills: 1 Ordered:07-Aug-2011 Reshma Chaudhry Started Ended 07-Aug-2011 InactiveGUAIFENESIN ER, 600MG (Oral Tablet Extended Release 12 Hour) 1 (one) Tablet ER 12HR two times daily for 10 days Quantity: 20 Refills: 0 Ordered:02-Jan-2013 James Romero MD Started 02-Jan-2013 Ended 12-Jan-2013 Inactive Comments:use if helpful LISINOPRIL, 20MG (Oral Tablet) - Historical Medication daily InactiveMETFORMIN HCL, 500MG (Oral Tablet) 1 Tablet daily for 90 days Quantity: 90 Refills: 4 Ordered:30-Oct-2012 Nohelia Price Started 24-Sep-2011 Ended 30-Oct-2012 Inactivetestrone cream 10% apply 0.5ml daily - Historical Medication InactiveZITHROMAX, 250MG (Oral Tablet) 2, then 1 (one) Tablet daily for 5 days Quantity: 6 Refills: 0 Ordered:02-Jan-2013 James Romero MD Started 02-Jan-2013 Ended 07-Jan-2013 Inactive Allergies and Adverse Reactions Name Dates Details No Known Allergies Onset: Status: Active No Known Drug Allergies Onset: Status: Active Past Medical History Name Dates Details No Past Medical History Information Available Status: Procedures Procedure Dates Details Follow up in 6 months Ordered: Follow up in 2 months Ordered:26-Oct-2013 ADMIN INFLUENZA VIRUS VAC: FLU VACC Completed:26-Oct-2013 PRSV FREE INC ANTIG (62428) ADMINISTRATION OF INFLUENZA VIRUS Ordered:26-Oct-2013 VACCINE (G0008) Follow up in 6 months Ordered:30-Apr-2013 Follow up - Keep appt as scheduled Ordered:02-Jan-2013 Follow up in 6 months Ordered:30-Oct-2012 Follow up in 3 months Ordered:01-Aug-2012 Follow up in 3 months Ordered:01-May-2012 Follow up in 6 weeks Ordered: ADMINISTRATION OF INFLUENZA VIRUS Ordered:14-May-2011 VACCINE (G0008) FLU VACC PRSV FREE INC ANTIG ([id number]) Completed:14-May-2011 Follow up in 2 months Ordered:14-May-2011 Follow up in 2 months Ordered: Annual Eye Exam Completed:22-Nov-2008 Flu Vaccine Completed:14-May-2011 Comments: high dose Flu Vaccine Completed:06-Jun-2012 Comments: jchd Flu Vaccine Completed:26-Oct-2013 Pneumovax Completed:2008 PSA Completed:23-Jun-2012 Comments: (8.05) PSA Completed:14-Oct-2012 Comments: (8.11) PSA Completed: Comments: (5.60) PSA Completed:15-Sep-2013 Comments: (5.40) PSA Completed:28-Apr-2012 Comments: (16.45) PSA Completed:10-Apr-2011 Comments: (5.95) Immunization Name Dates Details Fluzone Administered on:14-May-2011 Comments: Site: Deltoid (Left); high dose Lot #: [id number] Influenza, preserv. free, enhanced immunogncty, IM Administered on:2013 Comments: Site: Deltoid (Left) Lot #: [id number] Social History Name Dates Details Current tobacco use: Former smoker. Vital Signs Date Test Result Details 13:34 Temperature 98.7 f Comments: Method: Temporal [...] SKIN LESION Comments: The left neck Final SINGLE (50613) lesion was removed and also the left [...] hemostasis. Lesions were not sent to pathology. 01-Aug-2012 PUNCH BIOPSY (50002) Comments: After Final FIRST BIOPSY cleansing the left forearm with Hibiclens solution x3, the area was anesthetized with 1 cc 1% lidocaine and a 2 mm punch was used and elevated with sterile scissors and sent to pathology. Silver nitrate stick was for cautery. PT (PROTHROMBIN TIME) Comments: Items in this order include: Protime & INRDoes patient have a artifical heart valve? No 14:25 ([facility]) (76316) 9. Saturday Dosage 5.0 mg (Normal) 8. [...] this order include: Draw Charge[i], PSA ANTIGEN) (52418) PSA 6.15 ng/mL (Abnormal) Range: 0.00-4.00 14:25 Routine Venipuncture Comments: A copy of this report will be faxed to: Bettie Boswell in this order include: Draw Charge[i], PSA (51721) Draw Drawn (Normal) HEMOGLOBIN GLYCLATED Comments: Items in this order include: Hemoglobin A1C, Draw Charge[i], Comprehensive Metabolic Panel, Uric Acid 15:06 (HGB A1C) (85853) A1C 5.7 % (Normal) Range: 4.6-6.2 15:06 CMP (26589) Comments: Items in this order include: Hemoglobin [...] (Normal) Range: 135-145 15:06 URIC ACID BLOOD (74672) Comments: Items in this order include: Hemoglobin A1C, Draw Charge[i], Comprehensive Metabolic Panel, Uric Acid Uric Acid 8.0 mg/dL (Abnormal) Range: 3.6-7.7 15:06 Routine Venipuncture Comments: Items in this order include: Hemoglobin A1C, Draw Charge[i], Comprehensive Metabolic Panel, Uric Acid (17015) Draw Drawn (Normal) PT (PROTHROMBIN TIME) Comments: Items in this order include: Draw Charge[i], Protime & INRDoes patient have a artifical heart valve? No 14:27 ([facility]) (69218) 8. Saturday Dosage 5.0 mg (Normal) 9. [...] order include: Draw Charge[i], Protime & INR (64878) Draw Drawn (Normal) 26-Oct-2013 Draw Charge[i] Comments: Items in this order include: Basic Metabolic Panel, Draw Charge[i] 17:08 Draw Drawn (Normal) 17:05 [facility] (10941) Comments: Items in this order include: Basic [...] valve? No ([facility]) (84660) 9. Saturday Dosage 5.0 mg (Normal) 7. [...] order include: Draw Charge[i], Protime & INR (39746) Draw Drawn (Normal) 15-Sep-2013 PSA (PROSTATE SPECIFIC Comments: A copy of this report will be faxed to: Bettie Boswell in this order include: A COPY TO [kyung] PSAPSA allowed more than once a year due to being a Diagonistic PSA not a screening PSA 11:05 ANTIGEN) (81587) PSA 5.40 ng/mL (Abnormal) Range: 0.00-4.00 11:05 [...] this order include: Comprehensive Metabolic Panel, Hemoglobin S1OKuua Hgb A1C was ran 99 Days ago. Check by MARGARITA 10:38 (HGB A1C) (00331) A1C 5.9 % (Normal) Range: 4.6-6.2 Comments: Increased risk of diabetes. 10:38 [facility] (78191) Comments: Items in this order include: Comprehensive Metabolic Panel, Hemoglobin [id number] Hgb A1C was ran 99 Days ago. [...] valve? No ([facility]) (83685) 9. Saturday Dosage 5.0 (cycle of 5,5,7.5 [...] order include: Draw Charge[i], Protime & INR (40316) Draw Drawn (Normal) 10:38 DIGOXIN (18517) Comments: Items in this order include: DigoxinTime of Last Dose? 08/06/2013 8:30 AMDosage? 0.25 mg daily DIG 0.48 ng/mL (Abnormal) Range: 0.90-2.00 30-Apr-2013 HEMOGLOBIN GLYCLATED Comments: Items in this order include: Comprehensive Metabolic Panel, CBC, Hemoglobin X8RJara Hgb A1C was ran 225 Days ago. Check by ms 11:58 (HGB A1C) (04324) A1C 6.1 % (Normal) Range: 4.6-6.2 11:58 CBC MALE- ORDER THIS Comments: Items in this order include: Comprehensive Metabolic Panel, CBC, Hemoglobin Q3BVoge Hgb A1C was ran 225 Days ago. Check by ms ONE! (53474) manual diff Not Indicated (Normal) mpv 4.88 [...] 6.15 10*3/uL (Normal) Range: 4.50-10.50 11:58 CMP (18715) Comments: Items in this order include: Comprehensive Metabolic Panel, CBC, Hemoglobin E0GCiea Hgb A1C was ran 225 Days ago. [...] valve? No ([facility]) (62329) 4. Saturday Dosage Repeat mg (Normal) 3. Saturday Dosage 7.5 mg (Normal) 2. Saturday Dosage 5.0 mg (Normal) 1. Saturday Dosage 5.0 mg (Normal) INR 2.60 (Normal) PT 26.8 s (Abnormal) Range: 10.4-12.4 -March-2013 PT (PROTHROMBIN TIME) Comments: Items in this order include: Draw Charge[i], Protime & INRDoes patient have a artifical heart valve? No 15:12 ([facility]) (93892) 5. Dosage Repeat mg (Normal) 4. Saturday Dosage 5.0 mg (Normal) 3. Saturday Dosage 5.0 mg (Normal) 2. Saturday Dosage 7.5 mg (Normal) INR 2.31 (Normal) PT 24.0 s (Abnormal) Range: 10.4-12.4 15:12 Routine Venipuncture Comments: Items in this order include: Draw Charge[i], Protime & INR (23388) Draw Drawn (Normal) PSA (PROSTATE SPECIFIC Comments: A copy of this report will be faxed to: Bettie Boswell in this order include: PSA, Draw Charge[i]PSA allowed more than once a year due to being a Diagonistic PSA not a screening PSA 10:00 ANTIGEN) ([id number]) PSA 5.60 ng/mL (Abnormal) Range: 0.00-4.00 10:00 [...] valve? No ([facility]) (34276) 3. Saturday Dosage Repeat mg (Normal) 2. Saturday Dosage 7.5 mg (Normal) 1. Saturday Dosage 5.0 mg (Normal) INR 2.64 (Normal) PT 27.2 s (Abnormal) Range: 10.4-12.4 10:09 Routine Venipuncture Comments: Items in this order include: Draw Charge[i], Protime & INR (64665) Draw Drawn (Normal) 16-Dec-2012 PT (PROTHROMBIN TIME) Comments: Items in this order include: Draw Charge[i], Protime & INRDoes patient have a artifical heart valve? No 10:46 ([facility]) (27838) 4. Saturday Dosage Repeat mg (Normal) 3. Saturday Dosage 5.0 mg (Normal) 2. Saturday Dosage 7.5 mg (Normal) INR 2.13 (Normal) PT 22.2 s (Abnormal) Range: 10.4-12.4 10:46 Routine Venipuncture Comments: Items in this order include: Draw Charge[i], Protime & INR (59915) Draw Drawn (Normal) 26-Nov-2012 Routine Venipuncture Comments: Items in this order include: Protime & INR, Draw Charge[i] 15:05 (72477) Draw Drawn (Normal) 15:05 PT (PROTHROMBIN TIME) Comments: Items in this order include: Protime & INR, Draw Charge[i]Does patient have a artifical heart valve? No ([facility]) (72772) 4. Saturday Dosage 5.0 Repeat mg (Normal) [...] No 10:38 ([facility]) (12352) 7. Saturday Dosage 7.5 mg (Normal) 6. [...] order include: Draw Charge[i], Protime & INR (69096) Draw Drawn (Normal) 11:33 BMP Comments: Items [...] Dose? 10/29/2012 8:00 PMDosage? 0.25 mg Daily (35561) DIG 1.64 ng/mL (Normal) Range: 0.90-2.00 14-Oct-2012 PSA (PROSTATE SPECIFIC Comments: A copy of this report will be faxed to: Bettie Boswell in this order include: Draw Charge[i], Protime & INR, PSAPSA allowed more than once a year due to being a Diagonistic PSA not a screening PSA 10:25 ANTIGEN) (61488) PSA 8.11 ng/mL (Abnormal) Range: 0.00-4.00 10:25 PT (PROTHROMBIN TIME) Comments: PSA allowed more than once a year due to being a Diagonistic PSA not a screening PSACoumadin dosage=5,5,5,5,7.5 repeatDoes patient have a artifical heart valve? No ([facility]) (12734) 7. Saturday Dosage 7.5 mg (Normal) 6. [...] a Diagonistic PSA not a screening PSA (38697) Draw Drawn (Normal) 12-Sep-2012 PT (PROTHROMBIN TIME) Comments: Items in this order include: Draw Charge[i], Protime & INRDoes patient have a artifical heart valve? No 09:16 ([facility]) (60821) 6. Saturday Dosage Repeat mg (Normal) 5. Dosage 7.5 mg (Normal) 4. Saturday Dosage 5.0 mg (Normal) 3. Saturday Dosage 5.0 mg (Normal) 2. Saturday Dosage 5.0 mg (Normal) 1. Saturday Dosage 5.0 mg (Normal) INR 2.48 (Normal) PT 25.7 s (Abnormal) Range: 10.4-12.4 09:16 Routine Venipuncture Comments: Items in this order include: Draw Charge[i], Protime & INR (04202) Draw Drawn (Normal) 18-Aug-2012 PT (PROTHROMBIN TIME) Comments: Items in this order include: Protime & INRDolynn patient have a artifical heart valve? No 11:44 ([facility]) (55426) 7. Saturday Dosage 5.0 mg (Normal) 6. [...] Days ago. Check by KB (HGB A1C) (79711) A1C 6.2 % (Normal) Range: 4.6-6.2 Comments: High risk of diabetes. 31-Jul-2012 PT (PROTHROMBIN TIME) Comments: Items in this order include: Draw Charge[i], Protime & INRINR value > 3.0 given to Estella by Beny Buckley patient have a artifical heart valve? No 13:32 ([facility]) (71074) 7. Saturday Dosage 5.0 mg (Normal) 6. Joao Dosage 5.0 mg (Normal) 5. Dosage 7.5 mg (Normal) 4. Saturday Dosage 5.0 mg (Normal) 3. Saturday Dosage 5.0 mg (Normal) 2. Saturday Dosage 7.5 mg (Normal) 1. Saturday Dosage 5.0 mg (Normal) INR 3.62 (Normal) PT 36.7 s (Abnormal) Range: 10.4-12.4 13:32 Routine Venipuncture Comments: Items in this order include: Draw Charge[i], Protime & INR (23218) Draw Drawn (Normal) 23-Jun-2012 PSA (PROSTATE SPECIFIC Comments: A copy of this report will be faxed to: Bettie Boswell in this order include: Draw Charge[i], Protime & INR, PSAPSA allowed more than once a year due to being a Diagonistic PSA not a screening PSA 15:50 ANTIGEN) ([id number]) PSA 8.05 ng/mL (Abnormal) Range: 0.00-4.00 15:50 PT (PROTHROMBIN TIME) Comments: A copy of this report will be faxed to: Bettie Boswell in this order include: Draw Charge[i], Protime & INR , PSAPSA allowed more than once a year due to being a Diagonistic PSA not a screening ([facility]) (25647) PSADoes patient have a artifical heart valve? [...] a Diagonistic PSA not a screening PSA (46406) Draw Drawn (Normal) 13-May-2012 Draw Charge[i] Comments: [...] results to dr. hema boswell 14:28 ANTIGEN) (99351) PSA 16.45 ng/mL (Abnormal) Range: 0.00-4.00 14:28 PT (PROTHROMBIN TIME) Comments: Coumadin Dosage=5,5,5,7.5 Repeat. Took 7.5 on 04-27-12. ([facility]) (23721) 5. Dosage 7.5 Repeat mg (Normal) 4. Saturday Dosage 5.0 mg (Normal) 3. Saturday Dosage 5.0 mg (Normal) 2. Saturday Dosage 5.0 mg (Normal) 1. Saturday Dosage 7.5 mg (Normal) INR 2.17 (Normal) PT 22.7 s (Abnormal) Range: 10.4-12.4 14:28 Routine Venipuncture (20380) Draw Drawn (Normal) 13-May-2012 PSA (PROSTATE SPECIFIC Comments: A copy of this report will be faxed to: Bettie Boswell in this order include: PSA, Draw Charge[i]PSA allowed more than once a year due to being a Diagonistic PSA not a screening PSA 09:20 ANTIGEN) (93812) PSA 11.30 ng/mL (Abnormal) Range: 0.00-4.00 TSH (THYROID Comments: Items in this order include: TSH 16:40 STIMULATING HORMONE) (71599) TSH 1.36 uIU/ml (Normal) Range: 0.34-5.60 14:50 PT (PROTHROMBIN TIME) Comments: Items in this order include: Draw Charge[i], Basic Metabolic Panel, Hemoglobin A1C, Protime & INRLast Hbg A1C was ran 218 Days ago. Check by DL ([facility]) (20978) 5. Dosage Repeat mg (Normal) 4. Saturday [...] ran 218 Days ago. Check (HGB A1C) (18881) by DLplease draw enough blood so if [...] ran 218 Days ago. Check by DL (57493) Draw Drawn (Normal) DIGOXIN, DRUG ASSAY Comments: Items in this order include: CBC, Comprehensive Metabolic Panel, CKI, Digoxin, Draw Charge[i] 09:08 (65029) DIG 0.38 ng/mL (Abnormal) Range: 0.90-2.00 09:08 CK Comments: Items in this order include: CBC, Comprehensive Metabolic Panel, CKI, Digoxin, Draw Charge[i] CKI 143 U/L (Normal) Range: 39-308 09:08 CMP (56645) Comments: Items in this order include: CBC, [...] Metabolic Panel, CKI, Digoxin, Draw Charge[i] ONE! (78459) manual diff Not Indicated (Normal) mpv 6.84 [...] order include: Protime & INR, Draw Charge[i] (12960) Draw Drawn (Normal) 16:45 PT (PROTHROMBIN TIME) Comments: Items in this order include: Protime & INR, Draw Charge[i]Coumadin doasage=5,5,7.5 Repeat ([facility]) (64864) 7. Saturday Dosage 5.0 mg (Normal) 6. [...] order include: Draw Charge[i], PSA 11:11 ANTIGEN) (26910) PSA 6.92 ng/mL (Abnormal) Range: 0.00-4.00 11:11 Routine Venipuncture Comments: A copy of this report will be faxed to: Bettie Boswell in this order include: Draw Charge[i], PSA ([id number]) Draw Drawn (Normal) 17-Oct-2011 Routine Venipuncture 10:18 (98778) Draw Drawn (Normal) 10:18 TESTOSTERONE, FREE, Comments: Items in this order include: Protime & INR, Draw Charge[i], TESTOSTERONE, FREE, BIOAVAILABLE, AND TOTAL, LC/MS/ MSTesting performed at: [place], [address] [address], [place], [address], [employer]er: Michael Chávez [facility] TOTAL, LC/MS/MS ALBUMIN,SERUM 4.4 [...] (PROTHROMBIN TIME) ([facility]) (56498) 7. Saturday Dosage 5.0 mg (Normal) 6. [...] Panel, Hemoglobin A1C, Draw Charge[i] (HGB A1C) (35796) A1C 6.1 % (Normal) Range: 4.6-6.2 13:29 [...] (Normal) Range: 135-145 13:29 DIGOXIN, DRUG ASSAY (14384) DIG 0.85 ng/mL (Abnormal) Range: 0.90-2.00 07-Aug-2011 TESTOSTERONE, FREE, Comments: Items in this order include: TESTOSTERONE, FREE, BIOAVAILABLE, AND TOTAL, LC/MS/MSTesting performed at: [place], [address] [address], [place] , [address], [place] 12:53 WEAKLY BOUND AND TOTAL ratory Director: Michael Chávez MD.[facility] (55278) ALBUMIN,SERUM 4.4 g/dL (Normal) Range: 3.6-5.1 SEX [...] coumadin dose ([facility]) (25740) 7. Saturday Dosage 7.5 mg (Normal) 6. [...] Draw Charge[i] ([facility]) (03550) 7. Saturday Dosage 5.0 mg (Normal) 5. [...] Boswell in this order include: PSA ANTIGEN) (33025) PSA 5.95 ng/mL (Abnormal) Range: 0.00-4.00 CBC-MALE- ORDER THIS Comments: Items in this order include : Hemoglobin A1C, Comprehensive Metabolic Panel, CBC 11:56 ONE! (19269) manual diff Not Indicated (Normal) mpv 7.65 [...] 6.24 10*3/uL (Normal) Range: 4.50-10.50 11:56 CMP (09535) Comments: Items in this order include: Hemoglobin [...] this order include: Digoxin, Draw Charge[i] 15:17 (65043) DIG 1.18 ng/mL (Normal) Range: 0.90-2.00 HEMOGLOBIN GLYCLATED Comments: Items in this order include: Hemoglobin A1C, Comprehensive Metabolic Panel, CBC 11:56 (HGB A1C) (24056) A1C 6.6 % (Abnormal) Range: 4.6-6.2 Comments: Consistent with diabetes. 13:48 PT (PROTHROMBIN TIME) Comments: change to coumadin 5mg x 2 day then 7.5mg x1 repeat the cycle; Items in this order include: Protime & INR, Draw Charge[i]cyclechange to coumadin 5mg x 2 day then 7.5mg x1 repeat the ([facility]) (31145) 6. Saturday Dosage 7.5 mg (Normal) 7. [...] & INR, PSA, Draw Charge[i] 09:43 ANTIGEN) (85517) PSA 5.84 ng/mL (Abnormal) Range: 0.00-4.00 09:43 PT (PROTHROMBIN TIME) Comments: no change in coumadin; no change in coumadin ([facility]) (75229) 7. Saturday Dosage 7.5 mg (Normal) 6. Saturday Dosage 5.0 mg (Normal) 5. Dosage 7.5 mg (Normal) 4. Saturday Dosage 5.0 mg (Normal) 3. Saturday Dosage 5.0 mg (Normal) 1. Saturday Dosage 5.0 mg (Normal) 2. Saturday Dosage 7.5 mg (Normal) INR 3.45 (Normal) PT 32.9 s (Abnormal) Range: 10.4-12.4 23-Nov-2010 PT (PROTHROMBIN TIME) 10:03 ([facility]) (95707) 6. Saturday Dosage 7.5 mg (Normal) 7. Saturday Dosage 5 mg (Normal) 1. Saturday Dosage 5 mg (Normal) 2. Saturday Dosage 7.5 mg (Normal) 3. Saturday Dosage 5 mg (Normal) 4. Saturday Dosage 7.5 mg (Normal) 5. Dosage 5 mg (Normal) INR 2.16 (Normal) PT 21.0 s (Abnormal) Range: 10.4-12.4 19-Oct-2010 PT (PROTHROMBIN TIME) 15:16 ([facility]) (43287) 6. Saturday Dosage 5 mg (Normal) 7. Saturday Dosage 7.5 mg (Normal) 3. Saturday Dosage 7.5 mg (Normal) 4. Saturday Dosage 5 mg (Normal) 5. Dosage 7.5 mg (Normal) 1. Saturday Dosage 7.5 mg (Normal) 2. Saturday Dosage 5 mg (Normal) INR 2.13 (Normal) PT 20.7 s (Abnormal) Range: 10.4-12.4 12-Sep-2010 PT (PROTHROMBIN TIME) 11:03 ([facility]) (98206) INR 2.57 (Normal) PT (PROTHROMBIN TIME) 24.8 s (Abnormal) Range: 11.5-13.5 22-Aug-2010 PT (PROTHROMBIN TIME) 13:41 ([facility]) (43706) 09-Aug-2010 PSA, MEDICARE (G0103) Comments: please fax to dr hema boswell 09:54 PSA (Medicare) 4.83 ng/mL (Abnormal) Range: 0 - 4 09:34 PT (PROTHROMBIN TIME) ([facility]) (75969) INR 2.68 (Normal) PT (PROTHROMBIN TIME) 25.8 s (Abnormal) Range: 11.5-13.5 27-Jun-2010 PT (PROTHROMBIN TIME) 08:38 ([facility]) (31949) 26-Jun-2010 PT (PROTHROMBIN TIME) 16:21 ([facility]) (40883) INR 1.89 (Normal) PT (PROTHROMBIN TIME) 18.4 s (Abnormal) Range: 11.5-13.5 Treatment Plan PT (PROTHROMBIN TIME) ([facility]) (64718); Ordered: 04/05/2014Routine Venipuncture ( 40982); Ordered: 04/05/2014 Advance Directives No Advance Directives available. Encounters Lab entry only - Encounter for long-term (current) use of anticoagulants ( V58.61 | Z79.01) On [facility] 13:22 Lab entry only - Elevated PSA (790.93), Encounter for long-term (current) use of anticoagulants (V58.61 | Z79.01) On [facility] 14:27 Office Visit - Foot pain, left (729.5 | M79.672), Diabetes mellitus (250.00 | E11.9), Encounter for long-term (current) use of anticoagulants (V58.61 | Z79.01 ), Fibrillation, atrial (427.31), Benign ess On ential hypertension (401.1 | I10), Benign prostatic hypertrophy without lower urinary tract symptoms (LUTS) (600.00) 13:34 Encounter Reason: Foot pain - The onset [...] thing in the morning and on stairs. [facility] Historical Summary On 28-Dec-2013 [facility] 12:26 Medication Entry - Encounter for long-term (current) use of anticoagulants ( V58.61 | Z79.01), Diabetes mellitus (250.00 | E11.9), Fibrillation, atrial ( 427.31) On 03-Nov-2013 [facility] 09:01 Medication Entry - Fibrillation, atrial (427.31), Diabetes mellitus (250.00 | E11.9) On 30-Oct-2013 [facility] 15:55 Lab entry only - Encounter for long-term (current) use of anticoagulants ( V58.61 | Z79.01) On 27-Oct-2013 [facility] 17:57 Office Visit - Need for prophylactic vaccination and inoculation against influenza (V04.81), Renal lithiasis (592.0 | N20.0), Encounter for long-term ( current) use of anticoagulants (V58.61 | Z79.01), F On 26-Oct-2013 ibrillation, atrial (427.31), Osteoarthritis, multiple sites (715.89 | M15.9), Hydronephrosis, left (591 | N13.30) 16:16 Encounter Reason: Transition into care - The patient is transitioning into care from a hospital (Here for a follow with Dr. nneka M.D. after being in the hospital at [facility] on 10/16/13 & discharged on 10/17/13 dx jasmeet diaz, inr was done prior to visit.) . Note for "Transition into care": He passed a kidney stone a week ago.[facility] Historical Summary On 23-Oct-2013 [facility] 14:42 Lab entry only - Encounter for long-term (current) use of anticoagulants ( V58.61 | Z79.01) On 20-Oct-2013 [facility] 16:31 Lab entry only - Encounter for long-term (current) use of anticoagulants ( V58.61 | Z79.01) On 16-Sep-2013 [facility] 10:14 Lab entry only - Elevated PSA (790.93) On 15-Sep-2013 [facility] 11:11 Lab entry only - Encounter for long-term (current) use of anticoagulants ( V58.61 | Z79.01) On 07-Aug-2013 [facility] 14:32 Lab entry only - Benign essential hypertension (401.1 | I10), Diabetes mellitus (250.00 | E11.9) On 07-Aug-2013 [facility] 11:18 Lab entry only - Encounter for long-term (current) use of anticoagulants ( V58.61 | Z79.01) On 01-May-2013 [facility] 10:33 Office Visit - Diabetes mellitus (250.00 | E11.9), 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 Note for "Atrial fibrillation": here for a 6 month follow up with Dr. Nneka M.D. He did miss some meds while he traveled.[facility] Historical Summary On 29-Apr-2013 [facility] 11:46 Lab entry only - Encounter for long-term (current) use of anticoagulants ( V58.61 | Z79.01) On [facility] 16:39 Lab entry only - Encounter for long-term (current) use of anticoagulants ( V58.61 | Z79.01) On [facility] 19:40 Lab entry only - Elevated PSA (790.93) On [facility] 12:03 Office Visit - 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 | J40), Cough (786.2 | R05) On Dec-2012 Encounter Reason: Cough - Symptoms include cough, dyspnea, wheezing, chills, fever, runny nose, stuffy nose and myalgias, while symptoms do not include sore throat, pleuritic chest pain, chest pain or vomiting. The cough 15:16 is described as barky, brassy, hacking, honking, loose, tight, wheezy and productive. Cough onset was sudden 2 week(s) ago. Note for "Cough": He has not had an antibiotic.[facility] Lab entry only - Encounter for long-term (current) use of anticoagulants ( V58.61 | Z79.01) On 16-Dec-2012 [facility] 18:21 Lab entry only - Encounter for long-term (current) use of anticoagulants ( V58.61 | Z79.01) On 27-Nov-2012 [facility] 16:52 Lab entry only - Encounter for long-term (current) use of anticoagulants ( V58.61) On 26-Nov-2012 [facility] 15:04 Office Visit - Encounter for long-term (current) use of anticoagulants (V58.61) , Fibrillation, atrial (427.31), Edema (Renamed from Accumulation of fluid in tissues) (782.3 | R60.9), Disorder of kidney On 30-Oct-2012 and ureter (593.9 | N28.9), Diabetes mellitus (250.00 | E11.9), Benign prostatic hypertrophy without lower urinary tract symptoms (LUTS) (600.00), Stasis dermatitis (Renamed from Dermatitis, stasis) (454.1 | I83.10) 10:13 Encounter Reason: Follow up for chronic condition - The patient feels well with minor complaints (here for a 3 month follow up with Dr. Nneka M.D. , complains of both lower legs skin color brown has increased & my ankle muscles are more sore .). Note for "Follow up for chronic condition(s)" : It is worse first thing in the morning and on stairs.[facility] Historical Summary On 29-Oct-2012 [facility] 16:15 Lab entry only - Encounter for long-term (current) use of anticoagulants ( V58.61) On 15-Oct-2012 [facility] 09:51 Lab entry only - Encounter for long-term (current) use of anticoagulants ( V58.61), Elevated PSA (790.93) On 14-Oct-2012 [facility] 10:25 Lab entry only - Encounter for long-term (current) use of anticoagulants ( V58.61) On 12-Sep-2012 [facility] 13:44 Medication Entry - Edema (782.3), Fibrillation, atrial (427.31) On 20-Aug-2012 [facility] 11:10 Medication Entry - Fibrillation, atrial (427.31), Edema (782.3) On 19-Aug-2012 [facility] 17:29 Medication Entry - Encounter for long-term (current) use of anticoagulants ( V58.61), Fibrillation, atrial (427.31), Diabetes mellitus (250.00) On 2011 [facility] 17:44 Office Visit - 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), Inflamed seborrheic keratosis (702.11), Hyperglycemia (790.29), Encounter for long-term (current) use of anticoagulants (V58.61), Fibrillation, atrial (427.31) On 01-Aug-2012 Encounter Reason: Follow up for chronic condition - The patient feels well with minor complaints (here today for a 3 month follow up with Dr. Romero ) .[facility] 09:34 Medication Entry - Encounter for long-term (current) use of anticoagulants ( V58.61) On 31-Jul-2012 [facility] 18:21 Historical Summary On 31-Jul-2012 [facility] 11:40 Lab entry only - Encounter for long-term (current) use of anticoagulants ( V58.61) On 23-Jun-2012 [facility] 18:47 Lab entry only - Elevated PSA (790.93), Encounter for long-term (current) use of anticoagulants (V58.61) On 23-Jun-2012 [facility] 15:48 Office Visit - Adjustment disorder with depressed mood (309.0), Encounter for long-term (current) use of anticoagulants (V58.61), Elevated PSA (790.93) On Encounter Reason: Follow up for chronic condition - The patient feels well with minor complaints (here for a 6 week follow up visit do to a new medication but did not start the medication).[facility] 11:19 Historical Summary On 30-Apr-2012 [facility] 11:50 Lab entry only - Encounter for long-term (current) use of anticoagulants ( V58.61) On 28-Apr-2012 [facility] 17:23 Lab entry only - Elevated PSA (790.93), Encounter for long-term (current) use of anticoagulants (V58.61) On 28-Apr-2012 [facility] 14:19 Office Visit - Hyperglycemia (790.29), Fibrillation, atrial (427.31), Adjustment disorder with depressed mood (309.0), Encounter for long-term ( current) use of anticoagulants (V58.61), Obstructive sleep On apnea (327.23), 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), Malaise and fatigue ( 780.79), Elevated PSA (790.93) 14:51 Encounter Reason: Follow up for chronic condition - The patient feels well with minor complaints (here today for a 6 month follow up appt. with dr. romero , had lab done prior to appt today).[facility] Lab entry only - Edema (782.3), Hyperglycemia (790.29), Encounter for long- term (current) use of anticoagulants (V58.61) On [facility] 11:06 Lab entry only - Elevated PSA (790.93), Fibrillation, atrial (427.31), Edema ( 782.3) On [facility] 09:02 Lab entry only - Encounter for long-term (current) use of anticoagulants ( V58.61) On [facility] 16:44 Medication Entry On 26-Oct-2011 [facility] 13:30 Lab entry only - Elevated PSA (790.93) On 23-Oct-2011 [facility] 11:01 Lab entry only - Encounter for long-term (current) use of anticoagulants ( V58.61), Low testosterone (257.2) On 17-Oct-2011 [facility] 10:15 Medication Entry - Fibrillation, atrial (427.31) On 04-Oct-2011 [facility] 09:26 Medication Entry - Fibrillation, atrial (427.31), Edema (782.3), Encounter for long-term (current) use of anticoagulants (V58.61), Benign prostatic hypertrophy without lower urinary tract symptoms (LUTS) (600.00) On 02-Oct-2011 [facility] 18:56 Medication Entry - Encounter for long-term (current) use of anticoagulants ( V58.61), Fibrillation, atrial (427.31), Edema (782.3) On 26-Sep-2011 [facility] 11:06 Medication Entry - Fibrillation, atrial (427.31), Encounter for long-term ( current) use of anticoagulants (V58.61) On 24-Sep-2011 [facility] 10:41 Lab entry only - Low testosterone (257.2) On 10-Aug-2011 [facility] 13:03 Lab entry only - Hyperglycemia (790.29), Encounter for long-term (current) use of anticoagulants (V58.61), Fibrillation, atrial (427.31) On 08-Aug-2011 [facility] 13:27 Office Visit - Fibrillation, atrial (427.31), Encounter for long-term (current ) use of anticoagulants (V58.61), 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), Elevated PSA (790.93), Benign prostatic hypertrophy On 07-Aug-2011 without lower urinary tract symptoms (LUTS) (600.00), Edema (782.3), Hyperglycemia (790.29), Malaise and fatigue (780.79), Obstructive sleep apnea ( 327.23) 11:04 Encounter Reason: Atrial Fibrillation - The last [...] he 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." [facility] Historical Summary On 06-Aug-2011 [facility] 12:22 Medication Entry - Fibrillation, atrial (427.31) On 05-Jun-2011 [facility] 08:54 Lab entry only - Encounter for long-term (current) use of anticoagulants ( V58.61) On 15-May-2011 [facility] 18:48 Office Visit - Edema (782.3), Encounter for long-term (current) use of anticoagulants (V58.61), Ankle pain, right (719.47), Benign prostatic hypertrophy without lower urinary tract symptoms (LUTS) (600. On 14-May-2011 00), 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), Need for prophylactic vaccination and inoculation against influenza (V04.81) 15:34 Encounter Reason: Follow up for chronic condition [...] up is diabetes, hypertension, cardiovascular disorder and other.[facility] Medication Entry - Benign prostatic hypertrophy without lower urinary tract symptoms (LUTS) (600.00) On 19-Apr-2011 [facility] 08:49 Lab entry only - Benign prostatic hypertrophy without lower urinary tract symptoms (LUTS) (600.00) On 10-Apr-2011 [facility] 15:15 Office Visit - Elevated PSA (790.93), Encounter for long-term (current) use of anticoagulants (V58.61), Hyperglycemia (790.29), Disorder of kidney and ureter ( 593.9), Fibrillation, atrial (427.31), Rolo On a (782.3), Benign prostatic hypertrophy without lower urinary tract symptoms ( LUTS) (600.00) 14:00 Encounter Reason: Follow up, Laboratory Test Results [...] seeing dr. boswell the middle of apr.). [facility] Historical Summary On [facility] 16:05 Lab entry only - Encounter for long-term (current) use of anticoagulants ( V58.61) On [facility] 17:34 Lab entry only - Encounter for long-term (current) use of anticoagulants ( V58.61), Elevated PSA (790.93) On [facility] 09:42 Lab entry only - Encounter for long-term (current) use of anticoagulants ( V58.61) On 24-Nov-2010 [facility] 08:55 Lab entry only - Encounter for long-term (current) use of anticoagulants ( V58.61) On 20-Oct-2010 [facility] 14:42 Historical Summary - Encounter for long-term (current) use of anticoagulants ( V58.61) On 13-Sep-2010 [facility] 10:53 Historical Summary On 12-Sep-2010 [facility] 19:13 Lab entry only - Encounter for long-term (current) use of anticoagulants ( V58.61) On 14-Aug-2010 [facility] 17:44 Historical Summary - Elevated PSA (790.93) On 09-Aug-2010 [facility] 09:32 Lab entry only - Encounter for long-term (current) use of anticoagulants ( V58.61) On 27-Jun-2010 [facility] 08:35 Lab entry only - Encounter for long-term (current) use of anticoagulants ( V58.61) On 26-Jun-2010 [facility] 16:21 Insurance Vijay Yuan; gwen guarantorMedicare [employer]erve [facility] [employer]
--- OUTSIDE RECORDS SUMMARY | 2017-10-22 17:35 | External Medical Summary | Continuity of Care Document ---
:1940 Author Organization [facility] Address [address] [place] [address] Phone Care Team Providers Name Role Phone [...] Prevnar (PCV13)FOR MEDICARE USE ONLY Pneumovax injection 36527 (V03.82) Status: Active Renal lithiasis (592.0, N20.0) Status: Active Stasis dermatitis (Renamed from Dermatitis, stasis) (454.1, I83.10) Status: Active Medications Name Dates Details ALLOPURINOL, 300MG (Oral Tablet) 1/2 Tablet daily for 30 days Quantity: 30 {Tablet} Refills: 6 Ordered:28-Oct-2014 James Romero MD Start 28-Oct-2014 Active Comments:1/2 daily BACTRIM DS, 800-160MG (Oral Tablet) 1 (one) Tablet two times daily for 10 days Quantity: 20 {Tablet} Refills: 0 Ordered:11-Nov-2014 Nohelia Combs Start 11-Nov-2014 Active COLCHICINE-PROBENECID, 0.5-500MG (Oral Tablet) 1 (one) Tablet [...] Quantity: 90 {Capsule} Refills: 4 Ordered:03-Nov-2013 Nohelia Comsb Start 03-Nov-2013 Active FLOMAX, 0.4MG (Oral Capsule) [...] 08-Dec-2012 Active BACTRIM DS, 800-160MG (Oral Tablet) - Historical Medication 1 two times daily (800-160 MG) Inactive Comments:04-30-[address] elbert TURNER, 500MG (Oral Tablet) - Historical Medication 1 two times daily (500 MG) Inactive Comments:started on 10/17/13 after being dismissed from [facility] for kidney stone by gale CITALOPRAM HYDROBROMIDE, 20MG (Oral Tablet) 1 Tablet [...] days Quantity: 30 {Capsule} Refills: 1 Ordered:07-Aug-2011 CyndieReshma snell Start End 07-Aug-2011 Inactive GUAIFENESIN ER, 600MG [...] dx kidney stone from being discharged from [facility] testrone cream 10% apply 0.5ml daily [...] appt as scheduled Ordered:28-Oct-2014 CAROTID BILATERAL US (26430) Completed:14-Sep-2014 Comments: Verbal order from Dr. James Romero Follow up in 6 months Ordered:12-Aug-2014 PREVNAR 13 VALENT PNEUMOCOCCAL Completed:12-Aug-2014 VACCINE (86390) ADMINISTRATION OF PNEUMOCOCCAL Ordered:12-Aug-2014 CONJUGATE VACCINE (G0009) How to access health information Completed:12-Aug-2014 online Follow up in 6 months Ordered: Follow up in 2 months Ordered:26-Oct-2013 ADMIN INFLUENZA VIRUS VAC: FLU VACC Completed:26-Oct-2013 PRSV FREE INC ANTIG (12150) ADMINISTRATION OF INFLUENZA VIRUS Ordered:26-Oct-2013 VACCINE (G0008) Follow up in 6 months Ordered:30-Apr-2013 Follow up - Keep appt as scheduled Ordered:02-Jan-2013 Follow up in 6 months Ordered:30-Oct-2012 Follow up in 3 months Ordered:01-Aug-2012 Follow up in 3 months Ordered:01-May-2012 Follow up in 6 weeks Ordered: ADMINISTRATION OF INFLUENZA VIRUS Ordered:14-May-2011 VACCINE (G0008) FLU VACC PRSV FREE INC ANTIG Completed:14-May-2011 (03378) Follow up in 2 months Ordered:14-May-2011 Follow up in 2 months Ordered: Annual Eye Exam Completed:22-Nov-2008 Colonoscopy, Screening Completed: Colonoscopy, Screening Completed:06-Oct-2014 Flu Vaccine Completed:26-Oct-2013 Flu Vaccine Completed:06-Jun-2012 Comments: [facility] Flu Vaccine Completed:14-May-2011 Comments: high dose Pneumovax Completed:2008nar 13 Completed:12-Aug-2014 PSA Completed:28-Apr-2012 Comments: (16.45) PSA Completed:10-Apr-2011 Comments: (5.95) PSA Completed:23-Jun-2012 Comments: (8.05) PSA Completed:14-Oct-2012 Comments: (8.11) PSA Completed: Comments: (5.60) PSA Completed:15-Sep-2013 Comments: (5.40) PSA Completed: Comments: (6.15) PSA Completed:24-Aug-2014 Comments: (7.11) Immunization Name Dates Details Fluzone Administered on:14-May-2011 Comments: Site: Deltoid (Left); high dose Lot #: [id number] Influenza, preserv. free, enhanced immunogncty, IM Administered on:2013 Comments: Site: Deltoid (Left) Lot #: [id number] Pneumococcal conjugate vaccine, 13 valent, IM Administered on:12-Aug-2014 Comments: Site: Deltoid (Left) Lot #: [id number] Social History Name Dates Details Tobacco use: [...] Comments: The left neck Final 10:36 SINGLE (30175) lesion was removed and also the left [...] not sent to pathology. 10:35 PUNCH BIOPSY (30242) Comments: After Final FIRST BIOPSY cleansing the [...] have a artifical heart valve? No 10:48 ([employer]) (56489) 9. Saturday Dosage 7.5 mg (Normal) 8. [...] order include: Draw Charge[i], Protime & INR (49890) Draw Drawn (Normal) 21-Sep-2014 PT (PROTHROMBIN TIME) Comments: Items in this order include: Draw Charge[i], Protime & INRDoes patient have a artifical heart valve? No 10:08 ([employer]) (97193) 9. Saturday Dosage 5.0 mg (Normal) 7. [...] order include: Draw Charge[i], Protime & INR (11087) Draw Drawn (Normal) 24-Aug-2014 Routine Venipuncture Comments: Items in this order include: Protime & INR, Draw Charge[i] 09:59 (31335) Draw Drawn (Normal) 09:59 PT (PROTHROMBIN TIME) Comments: Items in this order include: Protime & INR, Draw Charge[i]INR value > 3.0 given to Estella by Beny Buckley patient have a artifical heart valve? No ([facility]) (48169) 9. Saturday Dosage 7.5 mg (Normal) 7. [...] Panel, Hemoglobin A1C, Urine Microalbumin, CBC ONE! (21032) manual diff Not Indicated (Normal) mpv 9.60 [...] Metabolic Panel, Hemoglobin A1C, Urine Microalbumin, CBC (65195) U A:C RATIO <30 mg/g Normal Range: <30 mg/g Normal (Normal) U CREAT 200 mg/dL (Normal) Range: 10-300 U ALB 80 mg/L (Abnormal) Range: 10 mg/L 09:59 HEMOGLOBIN GLYCLATED Comments: Items in this order include: Digoxin , PSA, Basic Metabolic Panel, Hemoglobin A1C, Urine Microalbumin, CBC (HGB A1C) (08625) A1C 5.9 % (Normal) Range: 4.6-6.2 Comments: Increased risk of diabetes. 09:59 [facility] (36527) Comments: Items in this order include: Digoxin, [...] Panel, Hemoglobin A1C, Urine Microalbumin, CBC ANTIGEN) (06691) PSA 7.11 ng/mL (Abnormal) Range: 0.00-4.00 09:59 DIGOXIN (78857) Comments: Items in this order include: Digoxin, PSA , Basic Metabolic Panel, Hemoglobin A1C, Urine Microalbumin, CBCTime of Last Dose? 08/23/2014 8:00 AMDosage? 0.25 DIG 0.36 ng/mL (Abnormal) Range: 0.90-2.00 05-Aug-2014 PT (PROTHROMBIN TIME) Comments: Items in this order include: Draw Charge[i], Protime & INRDoes patient have a artifical heart valve? No 10:48 ([facility]) (23113) 8. Saturday Dosage 7.5 mg (Normal) 9. [...] order include: Draw Charge[i], Protime & INR (52318) Draw Drawn (Normal) 03-Jun-2014 PT (PROTHROMBIN TIME) Comments: Items in this order include: Draw Charge[i], Protime & INRDoes patient have a artifical heart valve? No 13:56 ([facility]) (25885) 9. Saturday Dosage 7.5 mg (Normal) 8. [...] order include: Draw Charge[i], Protime & INR (35041) Draw Drawn (Normal) PT (PROTHROMBIN TIME) Comments: Items in this order include: Protime & INRDoes patient have a artifical heart valve? No 14:25 ([facility]) (42056) 9. Saturday Dosage 5.0 mg (Normal) 8. [...] this report will be faxed to: Bettie Pop in this order include: Draw Charge[i], PSA ANTIGEN) (04987) PSA 6.15 ng/mL (Abnormal) Range: 0.00-4.00 14:25 Routine Venipuncture Comments: A copy of this report will be faxed to: Bettie Pop in this order include: Draw Charge[i], PSA (12368) Draw Drawn (Normal) HEMOGLOBIN GLYCLATED Comments: Items in this order include: Hemoglobin A1C, Draw Charge[i], Comprehensive Metabolic Panel, Uric Acid 15:06 (HGB A1C) (84919) A1C 5.7 % (Normal) Range: 4.6-6.2 15:06 CMP (01214) Comments: Items in this order include: Hemoglobin [...] (Normal) Range: 135-145 15:06 URIC ACID BLOOD (66523) Comments: Items in this order include: Hemoglobin A1C, Draw Charge[i], Comprehensive Metabolic Panel, Uric Acid Uric Acid 8.0 mg/dL (Abnormal) Range: 3.6-7.7 15:06 Routine Venipuncture Comments: Items in this order include: Hemoglobin A1C, Draw Charge[i], Comprehensive Metabolic Panel, Uric Acid (54514) Draw Drawn (Normal) -January-2014 PT (PROTHROMBIN TIME) Comments: Items in this order include: Draw Charge[i], Protime & INRDoes patient have a artifical heart valve? No 14:27 ([facility]) (47896) 8. Saturday Dosage 5.0 mg (Normal) 9. [...] order include: Draw Charge[i], Protime & INR (78559) Draw Drawn (Normal) 26-Oct-2013 Draw Charge[i] Comments: Items in this order include: Basic Metabolic Panel, Draw Charge[i] 17:08 Draw Drawn (Normal) 17:05 [facility] (65015) Comments: Items in this order include: Basic [...] patient have a artifical heart valve? No ([facility]) (04366) 9. Saturday Dosage 5.0 mg (Normal) 7. [...] order include: Draw Charge[i], Protime & INR (10007) Draw Drawn (Normal) 15-Sep-2013 PSA (PROSTATE SPECIFIC Comments: A copy of this report will be faxed to: Bettie Pop in this order include: A COPY TO [kyung] PSAPSA allowed more than once a year due to being a Diagonistic PSA not a screening PSA 11:05 ANTIGEN) (63325) PSA 5.40 ng/mL (Abnormal) Range: 0.00-4.00 11:[address] Pop Comments: A copy of this report will be faxed to: Bettie Pop in this order include: A COPY TO [...] this order include: Comprehensive Metabolic Panel, Hemoglobin [id number] Hgb A1C was ran 99 Days ago. Check by MARGARITA 10:38 (HGB A1C) (64076) A1C 5.9 % (Normal) Range: 4.6-6.2 Comments: Increased risk of diabetes. 10:38 CMP (66292) Comments: Items in this order include: Comprehensive Metabolic Panel, Hemoglobin X8GCtxc Hgb A1C was ran 99 Days ago. [...] patient have a artifical heart valve? No ([facility]) (91364) 9. Saturday Dosage 5.0 (cycle of 5,5,7.5 [...] order include: Draw Charge[i], Protime & INR (96257) Draw Drawn (Normal) 10:38 DIGOXIN (20167) Comments: Items in this order include: DigoxinTime of Last Dose? 08/06/2013 8:30 AMDosage? 0.25 mg daily DIG 0.48 ng/mL (Abnormal) Range: 0.90-2.00 30-Apr-2013 HEMOGLOBIN GLYCLATED Comments: Items in this order include: Comprehensive Metabolic Panel, CBC, Hemoglobin K2TFdky Hgb A1C was ran 225 Days ago. Check by ms 11:58 (HGB A1C) (54617) A1C 6.1 % (Normal) Range: 4.6-6.2 11:58 CBC MALE- ORDER THIS Comments: Items in this order include: Comprehensive Metabolic Panel, CBC, Hemoglobin Q6ORolj Hgb A1C was ran 225 Days ago. Check by ms ONE! (02475) manual diff Not Indicated (Normal) mpv 4.88 [...] 6.15 10*3/uL (Normal) Range: 4.50-10.50 11:58 CMP (22830) Comments: Items in this order include: Comprehensive Metabolic Panel, CBC, Hemoglobin [id number] Hgb A1C was ran 225 Days ago. [...] patient have a artifical heart valve? No ([facility]) (20801) 4. Saturday Dosage Repeat mg (Normal) 3. Saturday Dosage 7.5 mg (Normal) 2. Saturday Dosage 5.0 mg (Normal) 1. Saturday Dosage 5.0 mg (Normal) INR 2.60 (Normal) PT 26.8 s (Abnormal) Range: 10.4-12.4 -March-2013 PT (PROTHROMBIN TIME) Comments: Items in this order include: Draw Charge[i], Protime & INRDoes patient have a artifical heart valve? No 15:12 ([facility]) (97584) 5. Dosage Repeat mg (Normal) 4. Saturday Dosage 5.0 mg (Normal) 3. Saturday Dosage 5.0 mg (Normal) 2. Saturday Dosage 7.5 mg (Normal) INR 2.31 (Normal) PT 24.0 s (Abnormal) Range: 10.4-12.4 15:12 Routine Venipuncture Comments: Items in this order include: Draw Charge[i], Protime & INR (81659) Draw Drawn (Normal) [id number]-[id number] PSA (PROSTATE SPECIFIC Comments: A copy of this report will be faxed to: Bettie Pop in this order include: PSA, Draw Charge[i]PSA allowed more than once a year due to being a Diagonistic PSA not a screening PSA 10:00 ANTIGEN) (36706) PSA 5.60 ng/mL (Abnormal) Range: 0.00-4.00 10:00 Draw Charge[i] Comments: A copy of this report will be faxed to: Bettie Pop in this order include: PSA, Draw Charge[i]PSA allowed more than once a year due to being a Diagonistic PSA not a screening PSA Draw Drawn (Normal) 10:09 PT (PROTHROMBIN TIME) Comments: Items in this order include: Draw Charge[i], Protime & INRDoes patient have a artifical heart valve? No ([facility]) (83419) 3. Saturday Dosage Repeat mg (Normal) 2. Saturday Dosage 7.5 mg (Normal) 1. Saturday Dosage 5.0 mg (Normal) INR 2.64 (Normal) PT 27.2 s (Abnormal) Range: 10.4-12.4 10:09 Routine Venipuncture Comments: Items in this order include: Draw Charge[i], Protime & INR (61635) Draw Drawn (Normal) 16-Dec-2012 PT (PROTHROMBIN TIME) Comments: Items in this order include: Draw Charge[i], Protime & INRDoes patient have a artifical heart valve? No 10:46 ([facility]) (34441) 4. Saturday Dosage Repeat mg (Normal) 3. Saturday Dosage 5.0 mg (Normal) 2. Saturday Dosage 7.5 mg (Normal) INR 2.13 (Normal) PT 22.2 s (Abnormal) Range: 10.4-12.4 10:46 Routine Venipuncture Comments: Items in this order include: Draw Charge[i], Protime & INR (78513) Draw Drawn (Normal) 26-Nov-2012 Routine Venipuncture Comments: Items in this order include: Protime & INR, Draw Charge[i] 15:05 (46191) Draw Drawn (Normal) 15:05 PT (PROTHROMBIN TIME) Comments: Items in this order include: Protime & INR, Draw Charge[i]Does patient have a artifical heart valve? No ([facility]) (37031) 4. Saturday Dosage 5.0 Repeat mg (Normal) 3. Saturday Dosage 5.0 mg (Normal) 2. Saturday Dosage 7.5 mg (Normal) INR 1.34 (Normal) PT 14.4 s (Abnormal) Range: 10.4-12.4 30-Oct-2012 PT (PROTHROMBIN TIME) Comments: Items in this order include: Draw Charge[i], Protime & INRINR value > 3.0 given to BW by Froy Chávez patient have a artifical heart valve? No 10:38 ([facility]) (95402) 7. Saturday Dosage 7.5 mg (Normal) 6. [...] order include: Draw Charge[i], Protime & INR (50954) Draw Drawn (Normal) 11:33 BMP Comments: Items [...] Dose? 10/29/2012 8:00 PMDosage? 0.25 mg Daily (29628) DIG 1.64 ng/mL (Normal) Range: 0.90-2.00 14-Oct-2012 PSA (PROSTATE SPECIFIC Comments: A copy of this report will be faxed to: Bettie Pop in this order include: Draw Charge[i], Protime & INR, PSAPSA allowed more than once a year due to being a Diagonistic PSA not a screening PSA 10:25 ANTIGEN) (39732) PSA 8.11 ng/mL (Abnormal) Range: 0.00-4.00 10:25 PT (PROTHROMBIN TIME) Comments: PSA allowed more than once a year due to being a Diagonistic PSA not a screening PSACoumadin dosage=5,5,5,5,7.5 repeatDoes patient have a artifical heart valve? No ([facility]) (32621) 7. Saturday Dosage 7.5 mg (Normal) 6. [...] a Diagonistic PSA not a screening PSA (79663) Draw Drawn (Normal) 12-Sep-2012 PT (PROTHROMBIN TIME) Comments: Items in this order include: Draw Charge[i], Protime & INRDoes patient have a artifical heart valve? No 09:16 ([facility]) (85824) 6. Saturday Dosage Repeat mg (Normal) 5. Dosage 7.5 mg (Normal) 4. Saturday Dosage 5.0 mg (Normal) 3. Saturday Dosage 5.0 mg (Normal) 2. Saturday Dosage 5.0 mg (Normal) 1. Saturday Dosage 5.0 mg (Normal) INR 2.48 (Normal) PT 25.7 s (Abnormal) Range: 10.4-12.4 09:16 Routine Venipuncture Comments: Items in this order include: Draw Charge[i], Protime & INR (13880) Draw Drawn (Normal) 18-Aug-2012 PT (PROTHROMBIN TIME) Comments: Items in this order include: Protime & INRDoes patient have a artifical heart valve? No 11:44 ([facility]) (95642) 7. Saturday Dosage 5.0 mg (Normal) 6. [...] Days ago. Check by KB (HGB A1C) (81541) A1C 6.2 % (Normal) Range: 4.6-6.2 Comments: High risk of diabetes. 31-Jul-2012 PT (PROTHROMBIN TIME) Comments: Items in this order include: Draw Charge[i], Protime & INRINR value > 3.0 given to Estella by Beny Buckley patient have a artifical heart valve? No 13:32 ([facility]) (16874) 7. Saturday Dosage 5.0 mg (Normal) 6. [...] order include: Draw Charge[i], Protime & INR (18521) Draw Drawn (Normal) 23-Jun-2012 PSA (PROSTATE SPECIFIC Comments: A copy of this report will be faxed to: Bettie Pop in this order include: Draw Charge[i], Protime & INR, PSAPSA allowed more than once a year due to being a Diagonistic PSA not a screening PSA 15:50 ANTIGEN) (40193) PSA 8.05 ng/mL (Abnormal) Range: 0.00-4.00 15:50 PT (PROTHROMBIN TIME) Comments: A copy of this report will be faxed to: Bettie Pop in this order include: Draw Charge[i], Protime & INR , PSAPSA allowed more than once a year due to being a Diagonistic PSA not a screening ([facility]) (44877) PSADoes patient have a artifical heart valve? No 5. Dosage Repeat mg (Normal) 4. Saturday Dosage 5.0 mg (Normal) 3. Saturday Dosage 5.0 mg (Normal) 2. Saturday Dosage 5.0 mg (Normal) 1. Saturday Dosage 7.5 mg (Normal) INR 1.53 (Normal) PT 16.2 s (Abnormal) Range: 10.4-12.4 15:50 Routine Venipuncture Comments: A copy of this report will be faxed to: Bettie Pop in this order include: Draw Charge[i], Protime & INR , PSAPSA allowed more than once a year due to being a Diagonistic PSA not a screening PSA (06993) Draw Drawn (Normal) 13-May-2012 Draw Charge[i] Comments: A copy of this report will be faxed to: Bettie Pop in this order include: PSA, Draw Charge[i]PSA allowed more than once a year due to being a Diagonistic PSA not a screening PSA 09:20 Draw Drawn (Normal) 28-Apr-2012 PSA (PROSTATE SPECIFIC Comments: please fax the results to dr. hema pop; A copy of this report will be faxed to: Bettie Pop in this order include: Draw Charge[i], Protime & INR, PSAplease fax the results to dr. hema pop 14:28 ANTIGEN) (15061) PSA 16.45 ng/mL (Abnormal) Range: 0.00-4.00 14:28 PT (PROTHROMBIN TIME) Comments: Coumadin Dosage=5,5,5,7.5 Repeat. Took 7.5 on 04-27-12. ([facility]) (48982) 5. Dosage 7.5 Repeat mg (Normal) 4. Saturday Dosage 5.0 mg (Normal) 3. Saturday Dosage 5.0 mg (Normal) 2. Saturday Dosage 5.0 mg (Normal) 1. Saturday Dosage 7.5 mg (Normal) INR 2.17 (Normal) PT 22.7 s (Abnormal) Range: 10.4-12.4 14:28 Routine Venipuncture (47350) Draw Drawn (Normal) 13-May-2012 PSA (PROSTATE SPECIFIC Comments: A copy of this report will be faxed to: Bettie Pop in this order include: PSA, Draw Charge[i]PSA allowed more than once a year due to being a Diagonistic PSA not a screening PSA 09:20 ANTIGEN) (71206) PSA 11.30 ng/mL (Abnormal) Range: 0.00-4.00 TSH (THYROID Comments: Items in this order include: TSH 16:40 STIMULATING HORMONE) (99643) TSH 1.36 uIU/ml (Normal) Range: 0.34-5.60 14:50 PT (PROTHROMBIN TIME) Comments: Items in this order include: Draw Charge[i], Basic Metabolic Panel, Hemoglobin A1C, Protime & INRLast Hbg A1C was ran 218 Days ago. Check by DL ([facility]) (76366) 5. Dosage Repeat mg (Normal) 4. Saturday [...] ran 218 Days ago. Check (HGB A1C) (11098) by DLplease draw enough blood so if [...] ran 218 Days ago. Check by DL (42581) Draw Drawn (Normal) DIGOXIN, DRUG ASSAY Comments: Items in this order include: CBC, Comprehensive Metabolic Panel, CKI, Digoxin, Draw Charge[i] 09:08 (88662) DIG 0.38 ng/mL (Abnormal) Range: 0.90-2.00 09:08 CK Comments: Items in this order include: CBC, Comprehensive Metabolic Panel, CKI, Digoxin, Draw Charge[i] CKI 143 U/L (Normal) Range: 39-308 09:08 CMP (27659) Comments: Items in this order include: CBC, [...] Metabolic Panel, CKI, Digoxin, Draw Charge[i] ONE! (52993) manual diff Not Indicated (Normal) mpv 6.84 [...] 0.00-9.00 LYM% 16.20 % (Abnormal) Range: 20.00-40.00 niraml% 76.60 % (Abnormal) Range: 55.00-75.00 Baso 0.100 10*3/uL (Normal) Range: 0.000-0.100 eos 0.157 10*3/uL (Normal) Range: 0.000-4.000 mono 0.30 10*3/uL (Normal) Range: 0.00-0.70 LYMPHS 1.25 10*3/uL (Normal) Range: 0.90-4.20 nirmal 5.93 10*3/uL (Normal) Range: 2.50-7.80 wbc 7.74 10*3/uL (Normal) Range: 4.50-10.50 16:45 Routine Venipuncture Comments: Items in this order include: Protime & INR, Draw Charge[i] (83762) Draw Drawn (Normal) 16:45 PT (PROTHROMBIN TIME) Comments: Items in this order include: Protime & INR, Draw Charge[i]Coumadin doasage=5,5,7.5 Repeat ([facility]) (91596) 7. Saturday Dosage 5.0 mg (Normal) 6. [...] this report will be faxed to: Bettie Pop in this order include: Draw Charge[i], PSA 11:11 ANTIGEN) (34139) PSA 6.92 ng/mL (Abnormal) Range: 0.00-4.00 11:11 Routine Venipuncture Comments: A copy of this report will be faxed to: Bettie Pop in this order include: Draw Charge[i], PSA (56393) Draw Drawn (Normal) 17-Oct-2011 Routine Venipuncture 10:18 (34182) Draw Drawn (Normal) 10:18 TESTOSTERONE, FREE, Comments: Items in this order include: Protime & INR, Draw Charge[i], TESTOSTERONE, FREE, BIOAVAILABLE, AND TOTAL, LC/MS/ MSTesting performed at: [facility] [place], [address] [address] BIO[address], AND , [place], [address], Market Analysis Director: Michael Chávez [employer] TOTAL, LC/MS/MS ALBUMIN,SERUM 4.4 [...] and benefits counseling. 10:18 PT (PROTHROMBIN TIME) ([facility]) (53685) 7. Saturday Dosage 5.0 mg (Normal) 6. [...] Panel, Hemoglobin A1C, Draw Charge[i] (HGB A1C) (08242) A1C 6.1 % (Normal) Range: 4.6-6.2 13:29 [...] (Normal) Range: 135-145 13:29 DIGOXIN, DRUG ASSAY (32298) DIG 0.85 ng/mL (Abnormal) Range: 0.90-2.00 07-Aug-2011 TESTOSTERONE, FREE, Comments: Items in this order include: TESTOSTERONE, FREE, BIOAVAILABLE, AND TOTAL, LC/MS/MSTesting performed at: [place], [address] [address], [place] , [address], [place] 12:53 WEAKLY BOUND AND TOTAL ratory Director: Michael Chávez MD.[facility] (77717) ALBUMIN,SERUM 4.4 g/dL (Normal) Range: 3.6-5.1 SEX [...] INR, Draw Charge[i]no change in coumadin dose ([facility]) (49946) 7. Saturday Dosage 7.5 mg (Normal) 6. [...] Metabolic Panel, Protime & INR, Draw Charge[i] ([facility]) (08381) 7. Saturday Dosage 5.0 mg (Normal) 5. [...] (PROSTATE SPECIFIC Comments: fax results to dr pop; A copy of this report will be faxed to: Bettie Pop in this order include: PSA ANTIGEN) (93579) PSA 5.95 ng/mL (Abnormal) Range: 0.00-4.00 CBC-MALE- ORDER THIS Comments: Items in this order include : Hemoglobin A1C, Comprehensive Metabolic Panel, CBC 11:56 ONE! (13943) manual diff Not Indicated (Normal) mpv 7.65 [...] 6.24 10*3/uL (Normal) Range: 4.50-10.50 11:56 CMP (94284) Comments: Items in this order include: Hemoglobin [...] this order include: Digoxin, Draw Charge[i] 15:17 (66002) DIG 1.18 ng/mL (Normal) Range: 0.90-2.00 HEMOGLOBIN GLYCLATED Comments: Items in this order include: Hemoglobin A1C, Comprehensive Metabolic Panel, CBC 11:56 (HGB A1C) (15867) A1C 6.6 % (Abnormal) Range: 4.6-6.2 Comments: Consistent with diabetes. 13:48 PT (PROTHROMBIN TIME) Comments: change to coumadin 5mg x 2 day then 7.5mg x1 repeat the cycle; Items in this order include: Protime & INR, Draw Charge[i]cyclechange to coumadin 5mg x 2 day then 7.5mg x1 repeat the ([facility]) (31090) 6. Saturday Dosage 7.5 mg (Normal) 7. [...] this report will be faxed to: Bettie Pop in this order include: Protime & INR, PSA, Draw Charge[i] 09:43 ANTIGEN) (83824) PSA 5.84 ng/mL (Abnormal) Range: 0.00-4.00 09:43 PT (PROTHROMBIN TIME) Comments: no change in coumadin; no change in coumadin ([facility]) (80622) 7. Saturday Dosage 7.5 mg (Normal) 6. Saturday Dosage 5.0 mg (Normal) 5. Dosage 7.5 mg (Normal) 4. Saturday Dosage 5.0 mg (Normal) 3. Saturday Dosage 5.0 mg (Normal) 1. Saturday Dosage 5.0 mg (Normal) 2. Saturday Dosage 7.5 mg (Normal) INR 3.45 (Normal) PT 32.9 s (Abnormal) Range: 10.4-12.4 23-Nov-2010 PT (PROTHROMBIN TIME) 10:03 ([facility]) (05642) 6. Joao Dosage 7.5 mg (Normal) 7. Saturday Dosage 5 mg (Normal) 1. Saturday Dosage 5 mg (Normal) 2. Saturday Dosage 7.5 mg (Normal) 3. Saturday Dosage 5 mg (Normal) 4. Saturday Dosage 7.5 mg (Normal) 5. Dosage 5 mg (Normal) INR 2.16 (Normal) PT 21.0 s (Abnormal) Range: 10.4-12.4 19-Oct-2010 PT (PROTHROMBIN TIME) 15:16 ([facility]) (61355) 6. Joao Dosage 5 mg (Normal) 7. Saturday Dosage 7.5 mg (Normal) 3. Saturday Dosage 7.5 mg (Normal) 4. Saturday Dosage 5 mg (Normal) 5. Dosage 7.5 mg (Normal) 1. Saturday Dosage 7.5 mg (Normal) 2. Saturday Dosage 5 mg (Normal) INR 2.13 (Normal) PT 20.7 s (Abnormal) Range: 10.4-12.4 12-Sep-2010 PT (PROTHROMBIN TIME) 11:03 ([facility]) (96537) INR 2.57 (Normal) PT (PROTHROMBIN TIME) 24.8 s (Abnormal) Range: 11.5-13.5 22-Aug-2010 PT (PROTHROMBIN TIME) 13:41 ([facility]) (30184) 09-Aug-2010 PSA, MEDICARE (G0103) Comments: please fax to dr hema pop 09:54 PSA (Medicare) 4.83 ng/mL (Abnormal) Range: 0 - 4 09:34 PT (PROTHROMBIN TIME) ([facility]) (70020) INR 2.68 (Normal) PT (PROTHROMBIN TIME) 25.8 s (Abnormal) Range: 11.5-13.5 27-Jun-2010 PT (PROTHROMBIN TIME) 08:38 ([facility]) (08193) 26-Jun-2010 PT (PROTHROMBIN TIME) 16:21 ([facility]) ([id number]) INR 1.89 (Normal) PT (PROTHROMBIN TIME) 18.4 s (Abnormal) Range: 11.5-13.5 Treatment Plan PT (PROTHROMBIN TIME) ([facility]) (43588); Ordered: 10/28/2014Routine Venipuncture ( 21815); Ordered: 10/28/2014 Advance Directives Encounters Medication Entry - Diabetes mellitus (250.00 | E11.9) On 12-Nov-2014 [facility] 11:46 to 11:53 Medication Entry - Cellulitis, leg (682.6 | L03.119) On 11-Nov-2014 [facility] 09:48 to 10:00 Office Visit - Gout [...] "Transition into care": He feels things are improved.[facility] Historical Summary On 27-Oct-2014 [facility] 15:03 to 15:08 Lab entry only - Fibrillation, atrial (427.31), Encounter for long-term ( current) use of anticoagulants (V58.61 | Z79.01) On 18-Oct-2014 [facility] 17:08 to 17:09 Medication Entry - Gout (274.9 | M10.9) On 12-Oct-2014 [facility] 16:17 to 16:22 Lab entry only - Encounter for long-term (current) use of anticoagulants ( V58.61 | Z79.01) On 21-Sep-2014 [facility] 15:31 to 15:33 Radiology Visit - Carotid stenosis (433.10 | I65.29) On 14-Sep-2014 [facility] 09:33 to 09:36 Lab entry only - Encounter for long-term (current) use of anticoagulants ( V58.61 | Z79.01) On 24-Aug-2014 [facility] 16:31 to 16:34 Office Visit - Health education (V65.40 | Z71.9), Prevnar (PCV13)FOR MEDICARE USE ONLY Pneumovax injection (V03.82) 60394, Encounter for long-term ( current) use of [...] lifeline screening. He mentions the "discoloration" of ankles.[facility] Historical Summary On 11-Aug-2014 [facility] 16:16 to 16:19 Lab entry only - Fibrillation, atrial (427.31), Encounter for long-term ( current) use of anticoagulants (V58.61 | Z79.01) On 06-Aug-2014 [facility] 16:41 to 16:43 Medication Entry - Benign essential hypertension (401.1 | I10) On 21-Jun-2014 [facility] 11:12 to 11:14 Lab entry only - Encounter for long-term (current) use of anticoagulants ( V58.61 | Z79.01) On 03-Jun-2014 [facility] 16:13 to 16:15 Lab entry only - Encounter for long-term (current) use of anticoagulants ( V58.61 | Z79.01) On [facility] 13:22 to 13:23 Lab entry only - Elevated PSA (790.93), Encounter for long-term (current) use of anticoagulants (V58.61 | Z79.01) On [facility] 14:27 to 14:28 Office Visit - Foot [...] thing in the morning and on stairs. [facility] Historical Summary On 28-Dec-2013 [facility] 12:26 to 12:29 Medication Entry - Encounter for long-term (current) use of anticoagulants ( V58.61 | Z79.01), Diabetes mellitus (250.00 | E11.9), Fibrillation, atrial ( 427.31) On 03-Nov-2013 [facility] 09:01 to 11:53 Medication Entry - Fibrillation, atrial (427.31), Diabetes mellitus (250.00 | E11.9) On 30-Oct-2013 [facility] 15:55 to 16:00 Lab entry only - Encounter for long-term (current) use of anticoagulants ( V58.61 | Z79.01) On 27-Oct-2013 [facility] 17:57 to 17:59 Office Visit - Need [...] M.D. after being in the hospital at [facility] on 10/16/13 & discharged on 10/17/13 dx jasmeet bhagat stone, inr was done prior to visit.) . Note for "Transition into care": He passed a kidney stone a week ago.[facility] Historical Summary On 23-Oct-2013 [facility] 14:42 to 14:45 Lab entry only - Encounter for long-term (current) use of anticoagulants ( V58.61 | Z79.01) On 20-Oct-2013 [facility] 16:31 to 16:33 Lab entry only - Encounter for long-term (current) use of anticoagulants ( V58.61 | Z79.01) On 16-Sep-2013 [facility] 10:14 to 10:15 Lab entry only - Elevated PSA (790.93) On 15-Sep-2013 [facility] 11:11 to 11:12 Lab entry only - Encounter for long-term (current) use of anticoagulants ( V58.61 | Z79.01) On 07-Aug-2013 [facility] 14:32 to 14:33 Lab entry only - Benign essential hypertension (401.1 | I10), Diabetes mellitus (250.00 | E11.9) On 07-Aug-2013 [facility] 11:18 to 11:19 Lab entry only - Encounter for long-term (current) use of anticoagulants ( V58.61 | Z79.01) On 01-May-2013 [facility] 10:33 to 10:38 Office Visit - Diabetes [...] He did miss some meds while he traveled.[facility] Historical Summary On 29-Apr-2013 [facility] 11:46 to 11:49 Lab entry only - Encounter for long-term (current) use of anticoagulants ( V58.61 | Z79.01) On [facility] 16:39 to 16:42 Lab entry only - Encounter for long-term (current) use of anticoagulants ( V58.61 | Z79.01) On [facility] 19:40 to 19:42 Lab entry only - Elevated PSA (790.93) On [facility] 12:03 to 12:07 Office Visit - Laryngotracheobronchitis [...] for "Cough": He has not had an antibiotic.[facility] Lab entry only - Encounter for long-term (current) use of anticoagulants ( V58.61 | Z79.01) On 16-Dec-2012 [facility] 18:21 to 18:23 Lab entry only - Encounter for long-term (current) use of anticoagulants ( V58.61 | Z79.01) On 27-Nov-2012 [facility] 16:52 to 16:53 Lab entry only - Encounter for long-term (current) use of anticoagulants ( V58.61) On 26-Nov-2012 [facility] 15:04 to 15:05 Office Visit - Encounter [...] first thing in the morning and on stairs.[facility] Historical Summary On 29-Oct-2012 [facility] 16:15 to 16:17 Lab entry only - Encounter for long-term (current) use of anticoagulants ( V58.61) On 15-Oct-2012 [facility] 09:51 to 09:57 Lab entry only - Encounter for long-term (current) use of anticoagulants ( V58.61), Elevated PSA (790.93) On 14-Oct-2012 [facility] 10:25 to 10:26 Lab entry only - Encounter for long-term (current) use of anticoagulants ( V58.61) On 12-Sep-2012 [facility] 13:44 to 13:45 Medication Entry - Edema (782.3), Fibrillation, atrial (427.31) On 20-Aug-2012 [facility] 11:10 to 11:12 Medication Entry - Fibrillation, atrial (427.31), Edema (782.3) On 19-Aug-2012 [facility] 17:29 to 18:11 Medication Entry - Encounter for long-term (current) use of anticoagulants ( V58.61), Fibrillation, atrial (427.31), Diabetes mellitus (250.00) On 2011 [facility] 17:44 to 17:53 Office Visit - 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), Inflamed seborrheic keratosis (702.11), Hyperglycemia (790.29), Encounter for long-term (current) use of anticoagulants (V58.61), Fibrillation, atrial (427.31) On 01-Aug-2012 Encounter Reason: Follow up for chronic condition - The patient feels well with minor complaints (here today for a 3 month follow up with Dr. Romero ) .[facility] 09:34 to 10:39 Medication Entry - Encounter for long-term (current) use of anticoagulants ( V58.61) On 31-Jul-2012 [facility] 18:21 to 18:22 Historical Summary On 31-Jul-2012 [facility] 11:40 to 11:42 Lab entry only - Encounter for long-term (current) use of anticoagulants ( V58.61) On 23-Jun-2012 [facility] 18:47 to 18:52 Lab entry only - Elevated PSA (790.93), Encounter for long-term (current) use of anticoagulants (V58.61) On 23-Jun-2012 [facility] 15:48 to 15:53 Office Visit - Adjustment disorder with depressed mood (309.0), Encounter for long-term (current) use of anticoagulants (V58.61), Elevated PSA (790.93) On Encounter Reason: Follow up for chronic condition - The patient feels well with minor complaints (here for a 6 week follow up visit do to a new medication but did not start the medication).[facility] 11:19 to 13: 39 Historical Summary On 30-Apr-2012 [facility] 11:50 to 11:52 Lab entry only - Encounter for long-term (current) use of anticoagulants ( V58.61) On 28-Apr-2012 [facility] 17:23 to 17:26 Lab entry only - Elevated PSA (790.93), Encounter for long-term (current) use of anticoagulants (V58.61) On 28-Apr-2012 [facility] 14:19 to 14:22 Office Visit - Hyperglycemia [...] , had lab done prior to appt today).[facility] Lab entry only - Edema (782.3), Hyperglycemia (790.29), Encounter for long- term (current) use of anticoagulants (V58.61) On [facility] 11:06 to 11:14 Lab entry only - Elevated PSA (790.93), Fibrillation, atrial (427.31), Edema ( 782.3) On [facility] 09:02 to 09:05 Lab entry only - Encounter for long-term (current) use of anticoagulants ( V58.61) On [facility] 16:44 to 16:45 Medication Entry On 26-Oct-2011 [facility] 13:30 to 13:32 Lab entry only - Elevated PSA (790.93) On 23-Oct-2011 [facility] 11:01 to 11:04 Lab entry only - Encounter for long-term (current) use of anticoagulants ( V58.61), Low testosterone (257.2) On 17-Oct-2011 [facility] 10:15 to 10:17 Medication Entry - Fibrillation, atrial (427.31) On 04-Oct-2011 [facility] 09:26 to 09:38 Medication Entry - Fibrillation, atrial (427.31), Edema (782.3), Encounter for long-term (current) use of anticoagulants (V58.61), Benign prostatic hypertrophy without lower urinary tract symptoms (LUTS) (600.00) On 02-Oct-2011 [facility] 18:56 to 19:02 Medication Entry - Encounter for long-term (current) use of anticoagulants ( V58.61), Fibrillation, atrial (427.31), Edema (782.3) On 26-Sep-2011 [facility] 11:06 to 11:11 Medication Entry - Fibrillation, atrial (427.31), Encounter for long-term ( current) use of anticoagulants (V58.61) On 24-Sep-2011 [facility] 10:41 to 10:49 Lab entry only - Low testosterone (257.2) On 10-Aug-2011 [facility] 13:03 to 13:05 Lab entry only - Hyperglycemia (790.29), Encounter for long-term (current) use of anticoagulants (V58.61), Fibrillation, atrial (427.31) On 08-Aug-2011 [facility] 13:27 to 13:29 Office Visit - Fibrillation, [...] he 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." [facility] Historical Summary On 06-Aug-2011 [facility] 12:22 to 12:24 Medication Entry - Fibrillation, atrial (427.31) On 05-Jun-2011 [facility] 08:54 to 08:59 Lab entry only - Encounter for long-term (current) use of anticoagulants ( V58.61) On 15-May-2011 [facility] 18:48 to 18:50 Office Visit - Edema [...] up is diabetes, hypertension, cardiovascular disorder and other.[facility] Medication Entry - Benign prostatic hypertrophy without lower urinary tract symptoms (LUTS) (600.00) On 19-Apr-2011 [facility] 08:49 to 08:51 Lab entry only - Benign prostatic hypertrophy without lower urinary tract symptoms (LUTS) (600.00) On 10-Apr-2011 [facility] 15:15 to 15:19 Office Visit - Elevated [...] antibotic x [address] pop plans on seeing dr. pop the middle of ). [facility] Historical Summary On [facility] 16:05 to 16:18 Lab entry only - Encounter for long-term (current) use of anticoagulants ( V58.61) On [facility] 17:34 to 17:36 Lab entry only - Encounter for long-term (current) use of anticoagulants ( V58.61), Elevated PSA (790.93) On [facility] 09:42 to 09:43 Lab entry only - Encounter for long-term (current) use of anticoagulants ( V58.61) On 24-Nov-2010 [facility] 08:55 to 08:57 Lab entry only - Encounter for long-term (current) use of anticoagulants ( V58.61) On 20-Oct-2010 [facility] 14:42 to 14:46 Historical Summary - Encounter for long-term (current) use of anticoagulants ( V58.61) On 13-Sep-2010 [facility] 10:53 to 10:59 Historical Summary 12-Sep-2010 to 13-Sep-2010 [facility] Lab entry only - Encounter for long-term (current) use of anticoagulants ( V58.61) On 14-Aug-2010 [facility] 17:44 to 17:49 Historical Summary - Elevated PSA (790.93) 09-Aug-2010 to 15-Aug-2010 [facility] Lab entry only - Encounter for long-term (current) use of anticoagulants ( V58.61) 27-Jun-2010 to 28-Jun-2010 [facility] Lab entry only - Encounter for long-term (current) use of anticoagulants ( V58.61) On 26-Jun-2010 [facility] 16:21 to 22:23 Insurance Vijay Yuan; gwen guarantorMedicare [employer]erve [facility] Hospitalate Farm InsuranceCVS/Jose
--- OUTSIDE RECORDS SUMMARY | 2017-10-22 17:36 | External Medical Summary | Continuity of Care Document ---
:1940 Author Organization [facility] Address [address] [place] [address] Phone Care Team Providers Name Role Phone James Romero MD Primary Care Provider James Romero MD Unavailable Unavailable Unavailable Problems Name Dates Details [...] Prevnar (PCV13)FOR MEDICARE USE ONLY Pneumovax injection 83888 (V03.82) Status: Active Renal lithiasis (592.0, N20.0) [...] days Quantity: 90 {Tablet} Refills: 4 Ordered:21-Jun-2014 Mtmiryam Nohelia Start 21-Jun-2014 Active METFORMIN HCL, 500MG (Oral Tablet) 1 Tablet daily for 90 days Quantity: 90 {Tablet} Refills: 4 Ordered:03-Nov-2013 Mtmiryam Nohelia Start 03-Nov-2013 Active PROMETHAZINE-DM, 6.25-15MG/5ML (Oral Syrup) 1-2 tsp Syrup Syrup every four hours, as needed for 10 days Quantity: 4 {Syrup} Refills: 1 Ordered:02-Jan-2013 James Romero MD Start 02-Jan-2013 Active Comments:Medication taken as needed. TRIAMTERENE-HCTZ, 37.5-25MG (Oral Capsule) - Historical Medication PRN (37.5-25 MG) Active WARFARIN SODIUM, 5MG (Oral Tablet) one Tablet [...] Comments:started on 10/17/13 after being dismissed from [facility] for kidney stone by gale CITALOPRAM HYDROBROMIDE, 20MG (Oral Tablet) 1 Tablet daily for 30 days Quantity: 30 {Tablet} Refills: 2 Ordered:01-May-2012 MtNohelia witt Start End 01-May-2012 Inactive Comments:May increase to [...] days Quantity: 90 {Tablet} Refills: 4 Ordered:30-Oct-2012 GarretNohelia Start 24-Sep-2011 End 30-Oct-2012 Inactive NORCO, 5-325MG (Oral Tablet) - Historical Medication 1 take one tablet every four hours as needed for pain (5-325 MG) Inactive Comments:Medication taken as needed. 10/17/13 dx kidney stone from being discharged from [facility] testrone cream 10% apply 0.5ml daily [...] appt as scheduled Ordered:28-Oct-2014 CAROTID BILATERAL US (24708) Completed:14-Sep-2014 Comments: Verbal order from Dr. James Romero Follow up in 6 months Ordered:12-Aug-2014 PREVNAR 13 VALENT PNEUMOCOCCAL Completed:12-Aug-2014 VACCINE (24049) ADMINISTRATION OF PNEUMOCOCCAL Ordered:12-Aug-2014 CONJUGATE VACCINE (G0009) How to access health information Completed:12-Aug-2014 online Follow up in 6 months Ordered: Follow up in 2 months Ordered:26-Oct-2013 ADMIN INFLUENZA VIRUS VAC: FLU VACC Completed:26-Oct-2013 PRSV FREE INC ANTIG (80390) ADMINISTRATION OF INFLUENZA VIRUS Ordered:26-Oct-2013 VACCINE (G0008) Follow up in 6 months Ordered:30-Apr-2013 Follow up - Keep appt as scheduled Ordered:02-Jan-2013 Follow up in 6 months Ordered:30-Oct-2012 Follow up in 3 months Ordered:01-Aug-2012 Follow up in 3 months Ordered:01-May-2012 Follow up in 6 weeks Ordered: ADMINISTRATION OF INFLUENZA VIRUS Ordered:14-May-2011 VACCINE (G0008) FLU VACC PRSV FREE INC ANTIG Completed:14-May-2011 (98606) Follow up in 2 months Ordered:14-May-2011 Follow up in 2 months Ordered: Annual Eye Exam Completed:22-Nov-2008 Colonoscopy, Screening Completed: Colonoscopy, Screening Completed:06-Oct-2014 Flu Vaccine Completed:26-Oct-2013 Flu Vaccine Completed:06-Jun-2012 Comments: [facility] Flu Vaccine Completed:14-May-2011 Comments: high dose Pneumovax Completed:2008 prevnar 13 Completed:12-Aug-2014 PSA Completed:28-Apr-2012 Comments: (16.45) PSA Completed:10-Apr-2011 Comments: (5.95) PSA Completed:23-Jun-2012 Comments: (8.05) PSA Completed:14-Oct-2012 Comments: (8.11) PSA Completed: Comments: (5.60) PSA Completed:15-Sep-2013 Comments: (5.40) PSA Completed: Comments: (6.15) PSA Completed:24-Aug-2014 Comments: (7.11) Immunization Name Dates Details Fluzone Administered on:14-May-2011 Comments: Site: Deltoid (Left); high dose Lot #: [id number] Influenza, preserv. free, enhanced immunogncty, IM Administered on:2013 Comments: Site: Deltoid (Left) Lot #: [id number] Pneumococcal conjugate vaccine, 13 valent, IM Administered on:12-Aug-2014 Comments: Site: Deltoid (Left) Lot #: [id number] Social History Name Dates Details Tobacco use: [...] Comments: The left neck Final 10:36 SINGLE (48897) lesion was removed and also the left [...] not sent to pathology. 10:35 PUNCH BIOPSY (99616) Comments: After Final FIRST BIOPSY cleansing the [...] have a artifical heart valve? No 10:48 ([facility]) (39102) 9. Saturday Dosage 7.5 mg (Normal) 8. [...] order include: Draw Charge[i], Protime & INR (61719) Draw Drawn (Normal) 21-Sep-2014 PT (PROTHROMBIN TIME) Comments: Items in this order include: Draw Charge[i], Protime & INRDoes patient have a artifical heart valve? No 10:08 ([facility]) (27892) 9. Saturday Dosage 5.0 mg (Normal) 7. [...] order include: Draw Charge[i], Protime & INR (80393) Draw Drawn (Normal) 24-Aug-2014 Routine Venipuncture Comments: Items in this order include: Protime & INR, Draw Charge[i] 09:59 (81028) Draw Drawn (Normal) 09:59 PT (PROTHROMBIN TIME) Comments: Items in this order include: Protime & INR, Draw Charge[i]INR value > 3.0 given to Estella by Beny Buckley patient have a artifical heart valve? No ([facility]) (84589) 9. Saturday Dosage 7.5 mg (Normal) 7. [...] Panel, Hemoglobin A1C, Urine Microalbumin, CBC ONE! (52660) manual diff Not Indicated (Normal) mpv 9.60 [...] Metabolic Panel, Hemoglobin A1C, Urine Microalbumin, CBC (06379) U A:C RATIO <30 mg/g Normal Range: <30 mg/g Normal (Normal) U CREAT 200 mg/dL (Normal) Range: 10-300 U ALB 80 mg/L (Abnormal) Range: 10 mg/L 09:59 HEMOGLOBIN GLYCLATED Comments: Items in this order include: Digoxin , PSA, Basic Metabolic Panel, Hemoglobin A1C, Urine Microalbumin, CBC (HGB A1C) (00625) A1C 5.9 % (Normal) Range: 4.6-6.2 Comments: Increased risk of diabetes. 09:59 [facility] (05705) Comments: Items in this order include: Digoxin, [...] Panel, Hemoglobin A1C, Urine Microalbumin, CBC ANTIGEN) (15176) PSA 7.11 ng/mL (Abnormal) Range: 0.00-4.00 09:59 DIGOXIN (80286) Comments: Items in this order include: Digoxin, PSA , Basic Metabolic Panel, Hemoglobin A1C, Urine Microalbumin, CBCTime of Last Dose? 08/23/2014 8:00 AMDosage? 0.25 DIG 0.36 ng/mL (Abnormal) Range: 0.90-2.00 05-Aug-2014 PT (PROTHROMBIN TIME) Comments: Items in this order include: Draw Charge[i], Protime & INRDoes patient have a artifical heart valve? No 10:48 ([facility]) (35563) 8. Saturday Dosage 7.5 mg (Normal) 9. [...] order include: Draw Charge[i], Protime & INR (93409) Draw Drawn (Normal) 03-Jun-2014 PT (PROTHROMBIN TIME) Comments: Items in this order include: Draw Charge[i], Protime & INRDoes patient have a artifical heart valve? No 13:56 ([facility]) (73799) 9. Saturday Dosage 7.5 mg (Normal) 8. [...] order include: Draw Charge[i], Protime & INR (31300) Draw Drawn (Normal) PT (PROTHROMBIN TIME) Comments: Items in this order include: Protime & INRDoes patient have a artifical heart valve? No 14:25 ([facility]) (06540) 9. Saturday Dosage 5.0 mg (Normal) 8. [...] this order include: Draw Charge[i], PSA ANTIGEN) (87689) PSA 6.15 ng/mL (Abnormal) Range: 0.00-4.00 14:25 Routine Venipuncture Comments: A copy of this report will be faxed to: Bettie Boswell in this order include: Draw Charge[i], PSA (27725) Draw Drawn (Normal) -January-2014 HEMOGLOBIN GLYCLATED Comments: Items in this order include: Hemoglobin A1C, Draw Charge[i], Comprehensive Metabolic Panel, Uric Acid 15:06 (HGB A1C) (02320) A1C 5.7 % (Normal) Range: 4.6-6.2 15:06 CMP (55123) Comments: Items in this order include: Hemoglobin [...] (Normal) Range: 135-145 15:06 URIC ACID BLOOD (42429) Comments: Items in this order include: Hemoglobin A1C, Draw Charge[i], Comprehensive Metabolic Panel, Uric Acid Uric Acid 8.0 mg/dL (Abnormal) Range: 3.6-7.7 15:06 Routine Venipuncture Comments: Items in this order include: Hemoglobin A1C, Draw Charge[i], Comprehensive Metabolic Panel, Uric Acid (99526) Draw Drawn (Normal) PT (PROTHROMBIN TIME) Comments: Items in this order include: Draw Charge[i], Protime & INRDoes patient have a artifical heart valve? No 14:27 ([facility]) (65471) 8. Saturday Dosage 5.0 mg (Normal) 9. [...] order include: Draw Charge[i], Protime & INR (23170) Draw Drawn (Normal) 26-Oct-2013 Draw Charge[i] Comments: Items in this order include: Basic Metabolic Panel, Draw Charge[i] 17:08 Draw Drawn (Normal) 17:05 [facility] (91752) Comments: Items in this order include: Basic [...] patient have a artifical heart valve? No ([facility]) (67918) 9. Saturday Dosage 5.0 mg (Normal) 7. [...] order include: Draw Charge[i], Protime & INR (60534) Draw Drawn (Normal) 15-Sep-2013 PSA (PROSTATE SPECIFIC Comments: A copy of this report will be faxed to: Bettie Boswell in this order include: A COPY TO [i], PSAPSA allowed more than once a year due to being a Diagonistic PSA not a screening PSA 11:05 ANTIGEN) (16400) PSA 5.40 ng/mL (Abnormal) Range: 0.00-4.00 11:[address] Boswell Comments: A copy of this report will be faxed to: Bettie Boswell in this order include: A COPY TO [i], PSAPSA allowed more than once a year [...] this order include: Comprehensive Metabolic Panel, Hemoglobin A6TXldp Hgb A1C was ran 99 Days ago. Check by MARGARITA 10:38 (HGB A1C) (01635) A1C 5.9 % (Normal) Range: 4.6-6.2 Comments: Increased risk of diabetes. 10:38 [facility] (27182) Comments: Items in this order include: Comprehensive Metabolic Panel, Hemoglobin S1OBmec Hgb A1C was ran 99 Days ago. [...] patient have a artifical heart valve? No ([facility]) (52565) 9. Saturday Dosage 5.0 (cycle of 5,5,7.5 [...] order include: Draw Charge[i], Protime & INR (30104) Draw Drawn (Normal) 10:38 DIGOXIN (67962) Comments: Items in this order include: DigoxinTime of Last Dose? 08/06/2013 8:30 AMDosage? 0.25 mg daily DIG 0.48 ng/mL (Abnormal) Range: 0.90-2.00 30-Apr-2013 HEMOGLOBIN GLYCLATED Comments: Items in this order include: Comprehensive Metabolic Panel, CBC, Hemoglobin C6YExac Hgb A1C was ran 225 Days ago. Check by ms 11:58 (HGB A1C) (25652) A1C 6.1 % (Normal) Range: 4.6-6.2 11:58 CBC MALE- ORDER THIS Comments: Items in this order include: Comprehensive Metabolic Panel, CBC, Hemoglobin [id number] Hgb A1C was ran 225 Days ago. Check by ms ONE! (06461) manual diff Not Indicated (Normal) mpv 4.88 [...] 6.15 10*3/uL (Normal) Range: 4.50-10.50 11:58 CMP (08850) Comments: Items in this order include: Comprehensive Metabolic Panel, CBC, Hemoglobin [id number] Hgb A1C was ran 225 Days ago. [...] patient have a artifical heart valve? No ([facility]) (04250) 4. Saturday Dosage Repeat mg (Normal) 3. Saturday Dosage 7.5 mg (Normal) 2. Saturday Dosage 5.0 mg (Normal) 1. Saturday Dosage 5.0 mg (Normal) INR 2.60 (Normal) PT 26.8 s (Abnormal) Range: 10.4-12.4 -March-2013 PT (PROTHROMBIN TIME) Comments: Items in this order include: Draw Charge[i], Protime & INRDoes patient have a artifical heart valve? No 15:12 ([facility]) (67746) 5. Dosage Repeat mg (Normal) 4. Saturday Dosage 5.0 mg (Normal) 3. Saturday Dosage 5.0 mg (Normal) 2. Saturday Dosage 7.5 mg (Normal) INR 2.31 (Normal) PT 24.0 s (Abnormal) Range: 10.4-12.4 15:12 Routine Venipuncture Comments: Items in this order include: Draw Charge[i], Protime & INR (95903) Draw Drawn (Normal) PSA (PROSTATE SPECIFIC Comments: A copy of this report will be faxed to: Bettie Boswell in this order include: PSA, Draw Charge[i]PSA allowed more than once a year due to being a Diagonistic PSA not a screening PSA 10:00 ANTIGEN) (88816) PSA 5.60 ng/mL (Abnormal) Range: 0.00-4.00 10:00 [...] patient have a artifical heart valve? No ([facility]) (14622) 3. Saturday Dosage Repeat mg (Normal) 2. Saturday Dosage 7.5 mg (Normal) 1. Saturday Dosage 5.0 mg (Normal) INR 2.64 (Normal) PT 27.2 s (Abnormal) Range: 10.4-12.4 10:09 Routine Venipuncture Comments: Items in this order include: Draw Charge[i], Protime & INR (40021) Draw Drawn (Normal) 16-Dec-2012 PT (PROTHROMBIN TIME) Comments: Items in this order include: Draw Charge[i], Protime & INRDoes patient have a artifical heart valve? No 10:46 ([facility]) (45140) 4. Saturday Dosage Repeat mg (Normal) 3. Saturday Dosage 5.0 mg (Normal) 2. Saturday Dosage 7.5 mg (Normal) INR 2.13 (Normal) PT 22.2 s (Abnormal) Range: 10.4-12.4 10:46 Routine Venipuncture Comments: Items in this order include: Draw Charge[i], Protime & INR (90204) Draw Drawn (Normal) 26-Nov-2012 Routine Venipuncture Comments: Items in this order include: Protime & INR, Draw Charge[i] 15:05 (88582) Draw Drawn (Normal) 15:05 PT (PROTHROMBIN TIME) Comments: Items in this order include: Protime & INR, Draw Charge[i]Does patient have a artifical heart valve? No ([facility]) (06540) 4. Saturday Dosage 5.0 Repeat mg (Normal) 3. Saturday Dosage 5.0 mg (Normal) 2. Saturday Dosage 7.5 mg (Normal) INR 1.34 (Normal) PT 14.4 s (Abnormal) Range: 10.4-12.4 30-Oct-2012 PT (PROTHROMBIN TIME) Comments: Items in this order include: Draw Charge[i], Protime & INRINR value > 3.0 given to BW by Froy Chávez patient have a artifical heart valve? No 10:38 ([facility]) (81625) 7. Saturday Dosage 7.5 mg (Normal) 6. [...] order include: Draw Charge[i], Protime & INR (17415) Draw Drawn (Normal) 11:33 BMP Comments: Items [...] Dose? 10/29/2012 8:00 PMDosage? 0.25 mg Daily (13973) DIG 1.64 ng/mL (Normal) Range: 0.90-2.00 14-Oct-2012 PSA (PROSTATE SPECIFIC Comments: A copy of this report will be faxed to: Bettie Boswell in this order include: Draw Charge[i], Protime & INR, PSAPSA allowed more than once a year due to being a Diagonistic PSA not a screening PSA 10:25 ANTIGEN) (56749) PSA 8.11 ng/mL (Abnormal) Range: 0.00-4.00 10:25 PT (PROTHROMBIN TIME) Comments: PSA allowed more than once a year due to being a Diagonistic PSA not a screening PSACoumadin dosage=5,5,5,5,7.5 repeatDoes patient have a artifical heart valve? No ([facility]) (09227) 7. Saturday Dosage 7.5 mg (Normal) 6. [...] a Diagonistic PSA not a screening PSA (19708) Draw Drawn (Normal) 12-Sep-2012 PT (PROTHROMBIN TIME) Comments: Items in this order include: Draw Charge[i], Protime & INRDoes patient have a artifical heart valve? No 09:16 ([facility]) (04118) 6. Saturday Dosage Repeat mg (Normal) 5. Dosage 7.5 mg (Normal) 4. Saturday Dosage 5.0 mg (Normal) 3. Saturday Dosage 5.0 mg (Normal) 2. Saturday Dosage 5.0 mg (Normal) 1. Saturday Dosage 5.0 mg (Normal) INR 2.48 (Normal) PT 25.7 s (Abnormal) Range: 10.4-12.4 09:16 Routine Venipuncture Comments: Items in this order include: Draw Charge[i], Protime & INR (41358) Draw Drawn (Normal) 18-Aug-2012 PT (PROTHROMBIN TIME) Comments: Items in this order include: Protime & INRDoes patient have a artifical heart valve? No 11:44 ([facility]) (56538) 7. Saturday Dosage 5.0 mg (Normal) 6. [...] Days ago. Check by KB (HGB A1C) (49643) A1C 6.2 % (Normal) Range: 4.6-6.2 Comments: High risk of diabetes. 31-Jul-2012 PT (PROTHROMBIN TIME) Comments: Items in this order include: Draw Charge[i], Protime & INRINR value > 3.0 given to Estella by Beny Buckley patient have a artifical heart valve? No 13:32 ([facility]) (32462) 7. Saturday Dosage 5.0 mg (Normal) 6. [...] order include: Draw Charge[i], Protime & INR (38745) Draw Drawn (Normal) -Jun-2012 PSA (PROSTATE SPECIFIC Comments: A copy of this report will be faxed to: Bettie Boswell in this order include: Draw Charge[i], Protime & INR, PSAPSA allowed more than once a year due to being a Diagonistic PSA not a screening PSA 15:50 ANTIGEN) (50624) PSA 8.05 ng/mL (Abnormal) Range: 0.00-4.00 15:50 PT (PROTHROMBIN TIME) Comments: A copy of this report will be faxed to: Bettie Boswell in this order include: Draw Charge[i], Protime & INR , PSAPSA allowed more than once a year due to being a Diagonistic PSA not a screening ([facility]) (28000) PSADoes patient have a artifical heart valve? No 5. Dosage Repeat mg (Normal) 4. Saturday Dosage 5.0 mg (Normal) 3. Saturday Dosage 5.0 mg (Normal) 2. Saturday Dosage 5.0 mg (Normal) 1. Saturday Dosage 7.5 mg (Normal) INR 1.53 (Normal) PT 16.2 s (Abnormal) Range: 10.4-12.4 15:50 Routine Venipuncture Comments: A copy of this report will be faxed to: Boswell, BrianItems in this order include: Draw Charge[i], Protime & INR , PSAPSA allowed more than once a year due to being a Diagonistic PSA not a screening PSA (41743) Draw Drawn (Normal) 13-May-2012 Draw Charge[i] Comments: [...] results to dr. hema boswell 14:28 ANTIGEN) (63080) PSA 16.45 ng/mL (Abnormal) Range: 0.00-4.00 14:28 PT (PROTHROMBIN TIME) Comments: Coumadin Dosage=5,5,5,7.5 Repeat. Took 7.5 on 04-27-12. ([facility]) (54796) 5. Dosage 7.5 Repeat mg (Normal) 4. Saturday Dosage 5.0 mg (Normal) 3. Saturday Dosage 5.0 mg (Normal) 2. Saturday Dosage 5.0 mg (Normal) 1. Saturday Dosage 7.5 mg (Normal) INR 2.17 (Normal) PT 22.7 s (Abnormal) Range: 10.4-12.4 14:28 Routine Venipuncture (13179) Draw Drawn (Normal) 13-May-2012 PSA (PROSTATE SPECIFIC Comments: A copy of this report will be faxed to: Bettie Boswell in this order include: PSA, Draw Charge[i]PSA allowed more than once a year due to being a Diagonistic PSA not a screening PSA 09:20 ANTIGEN) (38577) PSA 11.30 ng/mL (Abnormal) Range: 0.00-4.00 TSH (THYROID Comments: Items in this order include: TSH 16:40 STIMULATING HORMONE) (74035) TSH 1.36 uIU/ml (Normal) Range: 0.34-5.60 14:50 PT (PROTHROMBIN TIME) Comments: Items in this order include: Draw Charge[i], Basic Metabolic Panel, Hemoglobin A1C, Protime & INRLast Hbg A1C was ran 218 Days ago. Check by DL ([facility]) (81621) 5. Dosage Repeat mg (Normal) 4. Saturday Dosage 7.5 mg (Normal) 3. Saturday Dosage 5.0 mg (Normal) 2. Saturday Dosage 5.0 mg (Normal) INR 2.72 (Normal) PT 28.0 s (Abnormal) Range: 10.4-12.4 14:50 HEMOGLOBIN GLYCLATED Comments: please draw enough blood so if dr wants other lab ordered; Items in this order include: Draw Charge[i], Basic Metabolic Panel, Hemoglobin A1C, Protime & INRLast Hbg A1C was ran 218 Days ago. Check (HGB A1C) (61831) by DLplease draw enough blood so if [...] ran 218 Days ago. Check by DL (69549) Draw Drawn (Normal) DIGOXIN, DRUG ASSAY Comments: Items in this order include: CBC, Comprehensive Metabolic Panel, CKI, Digoxin, Draw Charge[i] 09:08 (40112) DIG 0.38 ng/mL (Abnormal) Range: 0.90-2.00 09:08 CK Comments: Items in this order include: CBC, Comprehensive Metabolic Panel, CKI, Digoxin, Draw Charge[i] CKI 143 U/L (Normal) Range: 39-308 09:08 CMP (73963) Comments: Items in this order include: CBC, [...] Metabolic Panel, CKI, Digoxin, Draw Charge[i] ONE! (43616) manual diff Not Indicated (Normal) mpv 6.84 [...] order include: Protime & INR, Draw Charge[i] (92794) Draw Drawn (Normal) 16:45 PT (PROTHROMBIN TIME) Comments: Items in this order include: Protime & INR, Draw Charge[i]Coumadin doasage=5,5,7.5 Repeat ([facility]) (98067) 7. Saturday Dosage 5.0 mg (Normal) 6. [...] order include: Draw Charge[i], PSA 11:11 ANTIGEN) (81036) PSA 6.92 ng/mL (Abnormal) Range: 0.00-4.00 11:11 Routine Venipuncture Comments: A copy of this report will be faxed to: Bettie Boswell in this order include: Draw Charge[i], PSA (40799) Draw Drawn (Normal) 17-Oct-2011 Routine Venipuncture 10:18 (29039) Draw Drawn (Normal) 10:18 TESTOSTERONE, FREE, Comments: Items in this order include: Protime & INR, Draw Charge[i], TESTOSTERONE, FREE, BIOAVAILABLE, AND TOTAL, LC/MS/ MSTesting performed at: [employer] [place], [address] [address], [place], [address], Medical Device Sales Representative: Michael Chávez [facility] TOTAL, LC/MS/MS ALBUMIN,SERUM 4.4 [...] and benefits counseling. 10:18 PT (PROTHROMBIN TIME) ([facility]) (55313) 7. Saturday Dosage 5.0 mg (Normal) 6. [...] Panel, Hemoglobin A1C, Draw Charge[i] (HGB A1C) (54223) A1C 6.1 % (Normal) Range: 4.6-6.2 13:29 [...] (Normal) Range: 135-145 13:29 DIGOXIN, DRUG ASSAY (26811) DIG 0.85 ng/mL (Abnormal) Range: 0.90-2.00 07-Aug-2011 TESTOSTERONE, FREE, Comments: Items in this order include: TESTOSTERONE, FREE, BIOAVAILABLE, AND TOTAL, LC/MS/MSTesting performed at: [employer] [place], [address] [address], [place] , [address], [place] 12:53 WEAKLY BOUND AND TOTAL ratory Director: Michael Chávez MD.[facility] (66089) ALBUMIN,SERUM 4.4 g/dL (Normal) Range: 3.6-5.1 SEX [...] INR, Draw Charge[i]no change in coumadin dose ([facility]) (42185) 7. Saturday Dosage 7.5 mg (Normal) 6. [...] Metabolic Panel, Protime & INR, Draw Charge[i] ([facility]) (06887) 7. Saturday Dosage 5.0 mg (Normal) 5. [...] Boswell in this order include: PSA ANTIGEN) (57544) PSA 5.95 ng/mL (Abnormal) Range: 0.00-4.00 CBC-MALE- ORDER THIS Comments: Items in this order include : Hemoglobin A1C, Comprehensive Metabolic Panel, CBC 11:56 ONE! (14101) manual diff Not Indicated (Normal) mpv 7.65 [...] 6.24 10*3/uL (Normal) Range: 4.50-10.50 11:56 CMP (23229) Comments: Items in this order include: Hemoglobin [...] this order include: Digoxin, Draw Charge[i] 15:17 (50806) DIG 1.18 ng/mL (Normal) Range: 0.90-2.00 HEMOGLOBIN GLYCLATED Comments: Items in this order include: Hemoglobin A1C, Comprehensive Metabolic Panel, CBC 11:56 (HGB A1C) (27398) A1C 6.6 % (Abnormal) Range: 4.6-6.2 Comments: Consistent with diabetes. 13:48 PT (PROTHROMBIN TIME) Comments: change to coumadin 5mg x 2 day then 7.5mg x1 repeat the cycle; Items in this order include: Protime & INR, Draw Charge[i]cyclechange to coumadin 5mg x 2 day then 7.5mg x1 repeat the ([facility]) (55745) 6. Saturday Dosage 7.5 mg (Normal) 7. [...] & INR, PSA, Draw Charge[i] 09:43 ANTIGEN) (39387) PSA 5.84 ng/mL (Abnormal) Range: 0.00-4.00 09:43 PT (PROTHROMBIN TIME) Comments: no change in coumadin; no change in coumadin ([facility]) (78335) 7. Saturday Dosage 7.5 mg (Normal) 6. Saturday Dosage 5.0 mg (Normal) 5. Dosage 7.5 mg (Normal) 4. Saturday Dosage 5.0 mg (Normal) 3. Saturday Dosage 5.0 mg (Normal) 1. Saturday Dosage 5.0 mg (Normal) 2. Saturday Dosage 7.5 mg (Normal) INR 3.45 (Normal) PT 32.9 s (Abnormal) Range: 10.4-12.4 23-Nov-2010 PT (PROTHROMBIN TIME) 10:03 ([facility]) (68784) 6. Saturday Dosage 7.5 mg (Normal) 7. Saturday Dosage 5 mg (Normal) 1. Saturday Dosage 5 mg (Normal) 2. Saturday Dosage 7.5 mg (Normal) 3. Saturday Dosage 5 mg (Normal) 4. Saturday Dosage 7.5 mg (Normal) 5. Dosage 5 mg (Normal) INR 2.16 (Normal) PT 21.0 s (Abnormal) Range: 10.4-12.4 19-Oct-2010 PT (PROTHROMBIN TIME) 15:16 ([facility]) (70941) 6. Saturday Dosage 5 mg (Normal) 7. Saturday Dosage 7.5 mg (Normal) 3. Saturday Dosage 7.5 mg (Normal) 4. Saturday Dosage 5 mg (Normal) 5. Dosage 7.5 mg (Normal) 1. Saturday Dosage 7.5 mg (Normal) 2. Saturday Dosage 5 mg (Normal) INR 2.13 (Normal) PT 20.7 s (Abnormal) Range: 10.4-12.4 12-Sep-2010 PT (PROTHROMBIN TIME) 11:03 ([facility]) (21306) INR 2.57 (Normal) PT (PROTHROMBIN TIME) 24.8 s (Abnormal) Range: 11.5-13.5 22-Aug-2010 PT (PROTHROMBIN TIME) 13:41 ([facility]) (34886) 09-Aug-2010 PSA, MEDICARE (G0103) Comments: please fax to dr hema boswell 09:54 PSA (Medicare) 4.83 ng/mL (Abnormal) Range: 0 - 4 09:34 PT (PROTHROMBIN TIME) ([facility]) (40518) INR 2.68 (Normal) PT (PROTHROMBIN TIME) 25.8 s (Abnormal) Range: 11.5-13.5 27-Jun-2010 PT (PROTHROMBIN TIME) 08:38 ([facility]) (56253) 26-Jun-2010 PT (PROTHROMBIN TIME) 16:21 ([facility]) (73913) INR 1.89 (Normal) PT (PROTHROMBIN TIME) 18.4 s (Abnormal) Range: 11.5-13.5 Treatment Plan PT (PROTHROMBIN TIME) ([facility]) (94116); Ordered: 10/28/2014Routine Venipuncture ( 70107); Ordered: 10/28/2014 Advance Directives Encounters Office Visit - Gout (274.9 | M10.9), [...] "Transition into care": He feels things are improved.[facility] Historical Summary On 27-Oct-2014 [facility] 15:03 to 15:08 Lab entry only - Fibrillation, atrial (427.31), Encounter for long-term ( current) use of anticoagulants (V58.61 | Z79.01) On 18-Oct-2014 [facility] 17:08 to 17:09 Medication Entry - Gout (274.9 | M10.9) On 12-Oct-2014 [facility] 16:17 to 16:22 Lab entry only - Encounter for long-term (current) use of anticoagulants ( V58.61 | Z79.01) On 21-Sep-2014 [facility] 15:31 to 15:33 Radiology Visit - Carotid stenosis (433.10 | I65.29) On 14-Sep-2014 [facility] 09:33 to 09:36 Lab entry only - Encounter for long-term (current) use of anticoagulants ( V58.61 | Z79.01) On 24-Aug-2014 [facility] 16:31 to 16:34 Office Visit - Health education (V65.40 | Z71.9), Prevnar (PCV13)FOR MEDICARE USE ONLY Pneumovax injection (V03.82) [id number], Encounter for long-term ( current) use of [...] lifeline screening. He mentions the "discoloration" of ankles.[facility] Historical Summary On 11-Aug-2014 [facility] 16:16 to 16:19 Lab entry only - Fibrillation, atrial (427.31), Encounter for long-term ( current) use of anticoagulants (V58.61 | Z79.01) On 06-Aug-2014 [facility] 16:41 to 16:43 Medication Entry - Benign essential hypertension (401.1 | I10) On 21-Jun-2014 [facility] 11:12 to 11:14 Lab entry only - Encounter for long-term (current) use of anticoagulants ( V58.61 | Z79.01) On 03-Jun-2014 [facility] 16:13 to 16:15 Lab entry only - Encounter for long-term (current) use of anticoagulants ( V58.61 | Z79.01) On [facility] 13:22 to 13:23 Lab entry only - Elevated PSA (790.93), Encounter for long-term (current) use of anticoagulants (V58.61 | Z79.01) On [facility] 14:27 to 14:28 Office Visit - [...] thing in the morning and on stairs. [facility] Historical Summary On 28-Dec-2013 [facility] 12:26 to 12:29 Medication Entry - Encounter for long-term (current) use of anticoagulants ( V58.61 | Z79.01), Diabetes mellitus (250.00 | E11.9), Fibrillation, atrial ( 427.31) On 03-Nov-2013 [facility] 09:01 to 11:53 Medication Entry - Fibrillation, atrial (427.31), Diabetes mellitus (250.00 | E11.9) On 30-Oct-2013 [facility] 15:55 to 16:00 Lab entry only - Encounter for long-term (current) use of anticoagulants ( V58.61 | Z79.01) On 27-Oct-2013 [facility] 17:57 to 17:59 Office Visit - [...] M.D. after being in the hospital at [facility] on 10/16/13 & discharged on 10/17/13 dx jasmeet diaz, inr was done prior to visit.) . Note for "Transition into care": He passed a kidney stone a week ago.[facility] Historical Summary On 23-Oct-2013 [facility] 14:42 to 14:45 Lab entry only - Encounter for long-term (current) use of anticoagulants ( V58.61 | Z79.01) On 20-Oct-2013 [facility] 16:31 to 16:33 Lab entry only - Encounter for long-term (current) use of anticoagulants ( V58.61 | Z79.01) On 16-Sep-2013 [facility] 10:14 to 10:15 Lab entry only - Elevated PSA (790.93) On 15-Sep-2013 [facility] 11:11 to 11:12 Lab entry only - Encounter for long-term (current) use of anticoagulants ( V58.61 | Z79.01) On 07-Aug-2013 [facility] 14:32 to 14:33 Lab entry only - Benign essential hypertension (401.1 | I10), Diabetes mellitus (250.00 | E11.9) On 07-Aug-2013 [facility] 11:18 to 11:19 Lab entry only - Encounter for long-term (current) use of anticoagulants ( V58.61 | Z79.01) On 01-May-2013 [facility] 10:33 to 10:38 Office Visit - [...] He did miss some meds while he traveled.[facility] Historical Summary On 29-Apr-2013 [facility] 11:46 to 11:49 Lab entry only - Encounter for long-term (current) use of anticoagulants ( V58.61 | Z79.01) On [facility] 16:39 to 16:42 Lab entry only - Encounter for long-term (current) use of anticoagulants ( V58.61 | Z79.01) On [facility] 19:40 to 19:42 Lab entry only - Elevated PSA (790.93) On [facility] 12:03 to 12:07 Office Visit - [...] for "Cough": He has not had an antibiotic.[facility] Lab entry only - Encounter for long-term (current) use of anticoagulants ( V58.61 | Z79.01) On 16-Dec-2012 [facility] 18:21 to 18:23 Lab entry only - Encounter for long-term (current) use of anticoagulants ( V58.61 | Z79.01) On 27-Nov-2012 [facility] 16:52 to 16:53 Lab entry only - Encounter for long-term (current) use of anticoagulants ( V58.61) On 26-Nov-2012 [facility] 15:04 to 15:05 Office Visit - [...] first thing in the morning and on stairs.[facility] Historical Summary On 29-Oct-2012 [facility] 16:15 to 16:17 Lab entry only - Encounter for long-term (current) use of anticoagulants ( V58.61) On 15-Oct-2012 [facility] 09:51 to 09:57 Lab entry only - Encounter for long-term (current) use of anticoagulants ( V58.61), Elevated PSA (790.93) On 14-Oct-2012 [facility] 10:25 to 10:26 Lab entry only - Encounter for long-term (current) use of anticoagulants ( V58.61) On 12-Sep-2012 [facility] 13:44 to 13:45 Medication Entry - Edema (782.3), Fibrillation, atrial (427.31) On 20-Aug-2012 [facility] 11:10 to 11:12 Medication Entry - Fibrillation, atrial (427.31), Edema (782.3) On 19-Aug-2012 [facility] 17:29 to 18:11 Medication Entry - Encounter for long-term (current) use of anticoagulants ( V58.61), Fibrillation, atrial (427.31), Diabetes mellitus (250.00) On 2011 [facility] 17:44 to 17:53 Office Visit - 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), Inflamed seborrheic keratosis (702.11), Hyperglycemia (790.29), Encounter for long-term (current) use of anticoagulants (V58.61), Fibrillation, atrial (427.31) On 01-Aug-2012 Encounter Reason: Follow up for chronic condition - The patient feels well with minor complaints (here today for a 3 month follow up with Dr. Romero ) .[facility] 09:34 to 10:39 Medication Entry - Encounter for long-term (current) use of anticoagulants ( V58.61) On 31-Jul-2012 [facility] 18:21 to 18:22 Historical Summary On 31-Jul-2012 [facility] 11:40 to 11:42 Lab entry only - Encounter for long-term (current) use of anticoagulants ( V58.61) On 23-Jun-2012 [facility] 18:47 to 18:52 Lab entry only - Elevated PSA (790.93), Encounter for long-term (current) use of anticoagulants (V58.61) On 23-Jun-2012 [facility] 15:48 to 15:53 Office Visit - Adjustment disorder with depressed mood (309.0), Encounter for long-term (current) use of anticoagulants (V58.61), Elevated PSA (790.93) On Encounter Reason: Follow up for chronic condition - The patient feels well with minor complaints (here for a 6 week follow up visit do to a new medication but did not start the medication).[facility] 11:19 to 13: 39 Historical Summary On 30-Apr-2012 [facility] 11:50 to 11:52 Lab entry only - Encounter for long-term (current) use of anticoagulants ( V58.61) On 28-Apr-2012 [facility] 17:23 to 17:26 Lab entry only - Elevated PSA (790.93), Encounter for long-term (current) use of anticoagulants (V58.61) On 28-Apr-2012 [facility] 14:19 to 14:22 Office Visit - [...] , had lab done prior to appt today).[facility] Lab entry only - Edema (782.3), Hyperglycemia (790.29), Encounter for long- term (current) use of anticoagulants (V58.61) On [facility] 11:06 to 11:14 Lab entry only - Elevated PSA (790.93), Fibrillation, atrial (427.31), Edema ( 782.3) On [facility] 09:02 to 09:05 Lab entry only - Encounter for long-term (current) use of anticoagulants ( V58.61) On [facility] 16:44 to 16:45 Medication Entry On 26-Oct-2011 [facility] 13:30 to 13:32 Lab entry only - Elevated PSA (790.93) On 23-Oct-2011 [facility] 11:01 to 11:04 Lab entry only - Encounter for long-term (current) use of anticoagulants ( V58.61), Low testosterone (257.2) On 17-Oct-2011 [facility] 10:15 to 10:17 Medication Entry - Fibrillation, atrial (427.31) On 04-Oct-2011 [facility] 09:26 to 09:38 Medication Entry - Fibrillation, atrial (427.31), Edema (782.3), Encounter for long-term (current) use of anticoagulants (V58.61), Benign prostatic hypertrophy without lower urinary tract symptoms (LUTS) (600.00) On 02-Oct-2011 [facility] 18:56 to 19:02 Medication Entry - Encounter for long-term (current) use of anticoagulants ( V58.61), Fibrillation, atrial (427.31), Edema (782.3) On 26-Sep-2011 [facility] 11:06 to 11:11 Medication Entry - Fibrillation, atrial (427.31), Encounter for long-term ( current) use of anticoagulants (V58.61) On 24-Sep-2011 [facility] 10:41 to 10:49 Lab entry only - Low testosterone (257.2) On 10-Aug-2011 [facility] 13:03 to 13:05 Lab entry only - Hyperglycemia (790.29), Encounter for long-term (current) use of anticoagulants (V58.61), Fibrillation, atrial (427.31) On 08-Aug-2011 [facility] 13:27 to 13:29 Office Visit - [...] he 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." [facility] Historical Summary On 06-Aug-2011 [facility] 12:22 to 12:24 Medication Entry - Fibrillation, atrial (427.31) On 05-Jun-2011 [facility] 08:54 to 08:59 Lab entry only - Encounter for long-term (current) use of anticoagulants ( V58.61) On 15-May-2011 [facility] 18:48 to 18:50 Office Visit - [...] up is diabetes, hypertension, cardiovascular disorder and other.[facility] Medication Entry - Benign prostatic hypertrophy without lower urinary tract symptoms (LUTS) (600.00) On 19-Apr-2011 [facility] 08:49 to 08:51 Lab entry only - Benign prostatic hypertrophy without lower urinary tract symptoms (LUTS) (600.00) On 10-Apr-2011 [facility] 15:15 to 15:19 Office Visit - [...] seeing dr. boswell the middle of apr.). [facility] Historical Summary On [facility] 16:05 to 16:18 Lab entry only - Encounter for long-term (current) use of anticoagulants ( V58.61) On [facility] 17:34 to 17:36 Lab entry only - Encounter for long-term (current) use of anticoagulants ( V58.61), Elevated PSA (790.93) On [facility] 09:42 to 09:43 Lab entry only - Encounter for long-term (current) use of anticoagulants ( V58.61) On 24-Nov-2010 [facility] 08:55 to 08:57 Lab entry only - Encounter for long-term (current) use of anticoagulants ( V58.61) On 20-Oct-2010 [facility] 14:42 to 14:46 Historical Summary - Encounter for long-term (current) use of anticoagulants ( V58.61) On 13-Sep-2010 [facility] 10:53 to 10:59 Historical Summary 12-Sep-2010 to 13-Sep-2010 [facility] Lab entry only - Encounter for long-term (current) use of anticoagulants ( V58.61) On 14-Aug-2010 [facility] 17:44 to 17:49 Historical Summary - Elevated PSA (790.93) 09-Aug-2010 to 15-Aug-2010 [facility] Lab entry only - Encounter for long-term (current) use of anticoagulants ( V58.61) 27-Jun-2010 to 28-Jun-2010 [facility] Lab entry only - Encounter for long-term (current) use of anticoagulants ( V58.61) On 26-Jun-2010 [facility] 16:21 to 22:23 Insurance Vijay Yuan; gwen guarantorMedicare [employer] Life[employer] Insurance[employer]
--- OUTSIDE RECORDS SUMMARY | 2017-10-22 17:37 | External Medical Summary | Continuity of Care Document ---
:1940 Author Organization [facility] Address [address] [place] [address] Phone Care Team Providers Name Role Phone [...] started on 10/17/13 after being dismissed from [facility] for kidney stone by cac [...] dx kidney stone from being discharged from [facility] PROMETHAZINE-DM, 6.25-15MG/5ML (Oral Syrup) 1-2 [...] FLU VACC Completed:26-Oct-2013 PRSV FREE INC ANTIG ([id number]) ADMINISTRATION OF INFLUENZA VIRUS Ordered:26-Oct-2013 VACCINE (G0008) Follow up in 6 months Ordered:30-Apr-2013 Follow up - Keep appt as scheduled Ordered:02-Jan-2013 Follow up in 6 months Ordered:30-Oct-2012 Follow up in 3 months Ordered:01-Aug-2012 Follow up in 3 months Ordered:01-May-2012 Follow up in 6 weeks Ordered: ADMINISTRATION OF INFLUENZA VIRUS Ordered:14-May-2011 VACCINE (G0008) FLU VACC PRSV FREE INC ANTIG (34060) Completed:14-May-2011 Follow up in 2 months Ordered:14-May-2011 [...] Site: Deltoid (Left); high dose Lot #: [id number] Influenza, preserv. free, enhanced immunogncty, IM Administered on:2013 Comments: Site: Deltoid (Left) Lot #: [id number] Social History Name Dates Details Current tobacco [...] LESION Comments: The left neck Final SINGLE (02959) lesion was removed and also the left [...] not sent to pathology. 01-Aug-2012 PUNCH BIOPSY (89652) Comments: After Final FIRST BIOPSY cleansing the [...] have a artifical heart valve? No 14:25 ([facility]) (17753) 9. Saturday Dosage 5.0 mg (Normal) 8. [...] this order include: Draw Charge[i], PSA ANTIGEN) (92337) PSA 6.15 ng/mL (Abnormal) Range: 0.00-4.00 14:25 Routine Venipuncture Comments: A copy of this report will be faxed to: Bettie Boswell in this order include: Draw Charge[i], PSA (30142) Draw Drawn (Normal) HEMOGLOBIN GLYCLATED Comments: Items in this order include: Hemoglobin A1C, Draw Charge[i], Comprehensive Metabolic Panel, Uric Acid 15:06 (HGB A1C) (13373) A1C 5.7 % (Normal) Range: 4.6-6.2 15:06 CMP (30989) Comments: Items in this order include: Hemoglobin [...] (Normal) Range: 135-145 15:06 URIC ACID BLOOD (35131) Comments: Items in this order include: Hemoglobin A1C, Draw Charge[i], Comprehensive Metabolic Panel, Uric Acid Uric Acid 8.0 mg/dL (Abnormal) Range: 3.6-7.7 15:06 Routine Venipuncture Comments: Items in this order include: Hemoglobin A1C, Draw Charge[i], Comprehensive Metabolic Panel, Uric Acid (07811) Draw Drawn (Normal) PT (PROTHROMBIN TIME) Comments: Items in this order include: Draw Charge[i], Protime & INRDoes patient have a artifical heart valve? No 14:27 ([facility]) (73479) 8. Saturday Dosage 5.0 mg (Normal) 9. [...] order include: Draw Charge[i], Protime & INR (82371) Draw Drawn (Normal) 26-Oct-2013 Draw Charge[i] Comments: Items in this order include: Basic Metabolic Panel, Draw Charge[i] 17:08 Draw Drawn (Normal) 17:05 [facility] (76006) Comments: Items in this order include: Basic [...] patient have a artifical heart valve? No ([facility]) (24806) 9. Saturday Dosage 5.0 mg (Normal) 7. [...] order include: Draw Charge[i], Protime & INR (84002) Draw Drawn (Normal) 15-Sep-2013 PSA (PROSTATE SPECIFIC Comments: A copy of this report will be faxed to: Bettie Boswell in this order include: A COPY TO [kyung] PSAPSA allowed more than once a year due to being a Diagonistic PSA not a screening PSA 11:05 ANTIGEN) (25914) PSA 5.40 ng/mL (Abnormal) Range: 0.00-4.00 11:05 [...] this order include: Comprehensive Metabolic Panel, Hemoglobin [id number] Hgb A1C was ran 99 Days ago. Check by MARGARITA 10:38 (HGB A1C) (19190) A1C 5.9 % (Normal) Range: 4.6-6.2 Comments: Increased risk of diabetes. 10:38 [facility] (46805) Comments: Items in this order include: Comprehensive Metabolic Panel, Hemoglobin [id number] Hgb A1C was ran 99 Days ago. [...] patient have a artifical heart valve? No ([facility]) (19243) 9. Saturday Dosage 5.0 (cycle of 5,5,7.5 [...] order include: Draw Charge[i], Protime & INR (07572) Draw Drawn (Normal) 10:38 DIGOXIN (34581) Comments: Items in this order include: DigoxinTime of Last Dose? 08/06/2013 8:30 AMDosage? 0.25 mg daily DIG 0.48 ng/mL (Abnormal) Range: 0.90-2.00 30-Apr-2013 HEMOGLOBIN GLYCLATED Comments: Items in this order include: Comprehensive Metabolic Panel, CBC, Hemoglobin Q0IEemz Hgb A1C was ran 225 Days ago. Check by ms 11:58 (HGB A1C) (79526) A1C 6.1 % (Normal) Range: 4.6-6.2 11:58 CBC MALE- ORDER THIS Comments: Items in this order include: Comprehensive Metabolic Panel, CBC, Hemoglobin Y1IMypn Hgb A1C was ran 225 Days ago. Check by ms ONE! (52317) manual diff Not Indicated (Normal) mpv 4.88 [...] 6.15 10*3/uL (Normal) Range: 4.50-10.50 11:58 CMP (75504) Comments: Items in this order include: Comprehensive Metabolic Panel, CBC, Hemoglobin P0PEakl Hgb A1C was ran 225 Days ago. [...] patient have a artifical heart valve? No ([facility]) (85979) 4. Saturday Dosage Repeat mg (Normal) 3. Saturday Dosage 7.5 mg (Normal) 2. Saturday Dosage 5.0 mg (Normal) 1. Saturday Dosage 5.0 mg (Normal) INR 2.60 (Normal) PT 26.8 s (Abnormal) Range: 10.4-12.4 -March-2013 PT (PROTHROMBIN TIME) Comments: Items in this order include: Draw Charge[i], Protime & INRDoes patient have a artifical heart valve? No 15:12 ([facility]) (36242) 5. Dosage Repeat mg (Normal) 4. Saturday Dosage 5.0 mg (Normal) 3. Saturday Dosage 5.0 mg (Normal) 2. Saturday Dosage 7.5 mg (Normal) INR 2.31 (Normal) PT 24.0 s (Abnormal) Range: 10.4-12.4 15:12 Routine Venipuncture Comments: Items in this order include: Draw Charge[i], Protime & INR (68472) Draw Drawn (Normal) PSA (PROSTATE SPECIFIC Comments: A copy of this report will be faxed to: Bettie Boswell in this order include: PSA, Draw Charge[i]PSA allowed more than once a year due to being a Diagonistic PSA not a screening PSA 10:00 ANTIGEN) (24404) PSA 5.60 ng/mL (Abnormal) Range: 0.00-4.00 10:00 [...] patient have a artifical heart valve? No ([facility]) (53800) 3. Saturday Dosage Repeat mg (Normal) 2. Saturday Dosage 7.5 mg (Normal) 1. Saturday Dosage 5.0 mg (Normal) INR 2.64 (Normal) PT 27.2 s (Abnormal) Range: 10.4-12.4 10:09 Routine Venipuncture Comments: Items in this order include: Draw Charge[i], Protime & INR (25435) Draw Drawn (Normal) 16-Dec-2012 PT (PROTHROMBIN TIME) Comments: Items in this order include: Draw Charge[i], Protime & INRDoes patient have a artifical heart valve? No 10:46 (eXelate) (19492) 4. Saturday Dosage Repeat mg (Normal) 3. Saturday Dosage 5.0 mg (Normal) 2. Saturday Dosage 7.5 mg (Normal) INR 2.13 (Normal) PT 22.2 s (Abnormal) Range: 10.4-12.4 10:46 Routine Venipuncture Comments: Items in this order include: Draw Charge[i], Protime & INR (64731) Draw Drawn (Normal) 26-Nov-2012 Routine Venipuncture Comments: Items in this order include: Protime & INR, Draw Charge[i] 15:05 (35416) Draw Drawn (Normal) 15:05 PT (PROTHROMBIN TIME) Comments: Items in this order include: Protime & INR, Draw Charge[i]Does patient have a artifical heart valve? No ([facility]) (65907) 4. Saturday Dosage 5.0 Repeat mg (Normal) 3. Saturday Dosage 5.0 mg (Normal) 2. Saturday Dosage 7.5 mg (Normal) INR 1.34 (Normal) PT 14.4 s (Abnormal) Range: 10.4-12.4 30-Oct-2012 PT (PROTHROMBIN TIME) Comments: Items in this order include: Draw Charge[i], Protime & INRINR value > 3.0 given to BW by Froy Chávez patient have a artifical heart valve? No 10:38 ([facility]) (88933) 7. Saturday Dosage 7.5 mg (Normal) 6. [...] order include: Draw Charge[i], Protime & INR (28752) Draw Drawn (Normal) 11:33 BMP Comments: Items [...] Dose? 10/29/2012 8:00 PMDosage? 0.25 mg Daily (94612) DIG 1.64 ng/mL (Normal) Range: 0.90-2.00 14-Oct-2012 PSA (PROSTATE SPECIFIC Comments: A copy of this report will be faxed to: Bettie Boswell in this order include: Draw Charge[i], Protime & INR, PSAPSA allowed more than once a year due to being a Diagonistic PSA not a screening PSA 10:25 ANTIGEN) (45714) PSA 8.11 ng/mL (Abnormal) Range: 0.00-4.00 10:25 PT (PROTHROMBIN TIME) Comments: PSA allowed more than once a year due to being a Diagonistic PSA not a screening PSACoumadin dosage=5,5,5,5,7.5 repeatDoes patient have a artifical heart valve? No ([facility]) (42996) 7. Saturday Dosage 7.5 mg (Normal) 6. [...] a Diagonistic PSA not a screening PSA (73627) Draw Drawn (Normal) 12-Sep-2012 PT (PROTHROMBIN TIME) Comments: Items in this order include: Draw Charge[i], Protime & INRDoes patient have a artifical heart valve? No 09:16 ([facility]) (99483) 6. Saturday Dosage Repeat mg (Normal) 5. Dosage 7.5 mg (Normal) 4. Saturday Dosage 5.0 mg (Normal) 3. Saturday Dosage 5.0 mg (Normal) 2. Saturday Dosage 5.0 mg (Normal) 1. Saturday Dosage 5.0 mg (Normal) INR 2.48 (Normal) PT 25.7 s (Abnormal) Range: 10.4-12.4 09:16 Routine Venipuncture Comments: Items in this order include: Draw Charge[i], Protime & INR (68043) Draw Drawn (Normal) 18-Aug-2012 PT (PROTHROMBIN TIME) Comments: Items in this order include: Protime & INRDolynn patient have a artifical heart valve? No 11:44 ([facility]) (47676) 7. Saturday Dosage 5.0 mg (Normal) 6. [...] Days ago. Check by KB (HGB A1C) (26579) A1C 6.2 % (Normal) Range: 4.6-6.2 Comments: High risk of diabetes. 31-Jul-2012 PT (PROTHROMBIN TIME) Comments: Items in this order include: Draw Charge[i], Protime & INRINR value > 3.0 given to Estella by Beny Buckley patient have a artifical heart valve? No 13:32 ([facility]) (37048) 7. Saturday Dosage 5.0 mg (Normal) 6. [...] order include: Draw Charge[i], Protime & INR (82901) Draw Drawn (Normal) 23-Jun-2012 PSA (PROSTATE SPECIFIC Comments: A copy of this report will be faxed to: Bettie Boswell in this order include: Draw Charge[i], Protime & INR, PSAPSA allowed more than once a year due to being a Diagonistic PSA not a screening PSA 15:50 ANTIGEN) (10416) PSA 8.05 ng/mL (Abnormal) Range: 0.00-4.00 15:50 PT (PROTHROMBIN TIME) Comments: A copy of this report will be faxed to: Bettie Boswell in this order include: Draw Charge[i], Protime & INR , PSAPSA allowed more than once a year due to being a Diagonistic PSA not a screening ([facility]) (25636) PSADoes patient have a artifical heart valve? [...] a Diagonistic PSA not a screening PSA (88052) Draw Drawn (Normal) 13-May-2012 Draw Charge[i] Comments: [...] results to dr. hema boswell 14:28 ANTIGEN) (86804) PSA 16.45 ng/mL (Abnormal) Range: 0.00-4.00 14:28 PT (PROTHROMBIN TIME) Comments: Coumadin Dosage=5,5,5,7.5 Repeat. Took 7.5 on 04-27-12. ([facility]) (72347) 5. Dosage 7.5 Repeat mg (Normal) 4. Saturday Dosage 5.0 mg (Normal) 3. Saturday Dosage 5.0 mg (Normal) 2. Saturday Dosage 5.0 mg (Normal) 1. Saturday Dosage 7.5 mg (Normal) INR 2.17 (Normal) PT 22.7 s (Abnormal) Range: 10.4-12.4 14:28 Routine Venipuncture (24750) Draw Drawn (Normal) 13-May-2012 PSA (PROSTATE SPECIFIC Comments: A copy of this report will be faxed to: Bettie Boswell in this order include: PSA, Draw Charge[i]PSA allowed more than once a year due to being a Diagonistic PSA not a screening PSA 09:20 ANTIGEN) (43134) PSA 11.30 ng/mL (Abnormal) Range: 0.00-4.00 TSH (THYROID Comments: Items in this order include: TSH 16:40 STIMULATING HORMONE) (65132) TSH 1.36 uIU/ml (Normal) Range: 0.34-5.60 14:50 PT (PROTHROMBIN TIME) Comments: Items in this order include: Draw Charge[i], Basic Metabolic Panel, Hemoglobin A1C, Protime & INRLast Hbg A1C was ran 218 Days ago. Check by DL ([facility]) (68542) 5. Dosage Repeat mg (Normal) 4. Saturday [...] ran 218 Days ago. Check (HGB A1C) (14191) by DLplease draw enough blood so if [...] ran 218 Days ago. Check by DL (00825) Draw Drawn (Normal) DIGOXIN, DRUG ASSAY Comments: Items in this order include: CBC, Comprehensive Metabolic Panel, CKI, Digoxin, Draw Charge[i] 09:08 (57355) DIG 0.38 ng/mL (Abnormal) Range: 0.90-2.00 09:08 CK Comments: Items in this order include: CBC, Comprehensive Metabolic Panel, CKI, Digoxin, Draw Charge[i] CKI 143 U/L (Normal) Range: 39-308 09:08 CMP (83423) Comments: Items in this order include: CBC, [...] Metabolic Panel, CKI, Digoxin, Draw Charge[i] ONE! (79363) manual diff Not Indicated (Normal) mpv 6.84 [...] order include: Protime & INR, Draw Charge[i] (37870) Draw Drawn (Normal) 16:45 PT (PROTHROMBIN TIME) Comments: Items in this order include: Protime & INR, Draw Charge[i]Coumadin doasage=5,5,7.5 Repeat ([facility]) (43450) 7. Saturday Dosage 5.0 mg (Normal) 6. [...] order include: Draw Charge[i], PSA 11:11 ANTIGEN) (82211) PSA 6.92 ng/mL (Abnormal) Range: 0.00-4.00 11:11 Routine Venipuncture Comments: A copy of this report will be faxed to: Bettie Boswell in this order include: Draw Charge[i], PSA (50095) Draw Drawn (Normal) 17-Oct-2011 Routine Venipuncture 10:18 (67202) Draw Drawn (Normal) 10:18 TESTOSTERONE, FREE, Comments: Items in this order include: Protime & INR, Draw Charge[i], TESTOSTERONE, FREE, BIOAVAILABLE, AND TOTAL, LC/MS/ MSTesting performed at: [place], [address] [address], [place], [address], Data Officer: Michael Chávez [facility]Quest TOTAL, LC/MS/MS ALBUMIN,SERUM 4.4 [...] and benefits counseling. 10:18 PT (PROTHROMBIN TIME) ([facility]) (63521) 7. Saturday Dosage 5.0 mg (Normal) 6. [...] Panel, Hemoglobin A1C, Draw Charge[i] (HGB A1C) (52473) A1C 6.1 % (Normal) Range: 4.6-6.2 13:29 [...] (Normal) Range: 135-145 13:29 DIGOXIN, DRUG ASSAY (12586) DIG 0.85 ng/mL (Abnormal) Range: 0.90-2.00 07-Aug-2011 TESTOSTERONE, FREE, Comments: Items in this order include: TESTOSTERONE, FREE, BIOAVAILABLE, AND TOTAL, LC/MS/MSTesting performed at: [place], [address] [address], [place] , [address], [place] 12:53 WEAKLY BOUND AND TOTAL ratory Director: Michael Chávez MD.[facility] (66058) ALBUMIN,SERUM 4.4 g/dL (Normal) Range: 3.6-5.1 SEX [...] INR, Draw Charge[i]no change in coumadin dose ([facility]) (38865) 7. Saturday Dosage 7.5 mg (Normal) 6. [...] Metabolic Panel, Protime & INR, Draw Charge[i] ([facility]) (02466) 7. Saturday Dosage 5.0 mg (Normal) 5. [...] Boswell in this order include: PSA ANTIGEN) (61603) PSA 5.95 ng/mL (Abnormal) Range: 0.00-4.00 CBC-MALE- ORDER THIS Comments: Items in this order include : Hemoglobin A1C, Comprehensive Metabolic Panel, CBC 11:56 ONE! (20828) manual diff Not Indicated (Normal) mpv 7.65 [...] 6.24 10*3/uL (Normal) Range: 4.50-10.50 11:56 CMP (24411) Comments: Items in this order include: Hemoglobin [...] this order include: Digoxin, Draw Charge[i] 15:17 (40268) DIG 1.18 ng/mL (Normal) Range: 0.90-2.00 HEMOGLOBIN GLYCLATED Comments: Items in this order include: Hemoglobin A1C, Comprehensive Metabolic Panel, CBC 11:56 (HGB A1C) (04542) A1C 6.6 % (Abnormal) Range: 4.6-6.2 Comments: Consistent with diabetes. 13:48 PT (PROTHROMBIN TIME) Comments: change to coumadin 5mg x 2 day then 7.5mg x1 repeat the cycle; Items in this order include: Protime & INR, Draw Charge[i]cyclechange to coumadin 5mg x 2 day then 7.5mg x1 repeat the ([facility]) (92350) 6. Saturday Dosage 7.5 mg (Normal) 7. [...] & INR, PSA, Draw Charge[i] 09:43 ANTIGEN) (15952) PSA 5.84 ng/mL (Abnormal) Range: 0.00-4.00 09:43 PT (PROTHROMBIN TIME) Comments: no change in coumadin; no change in coumadin ([facility]) (73832) 7. Saturday Dosage 7.5 mg (Normal) 6. Saturday Dosage 5.0 mg (Normal) 5. Dosage 7.5 mg (Normal) 4. Saturday Dosage 5.0 mg (Normal) 3. Saturday Dosage 5.0 mg (Normal) 1. Saturday Dosage 5.0 mg (Normal) 2. Saturday Dosage 7.5 mg (Normal) INR 3.45 (Normal) PT 32.9 s (Abnormal) Range: 10.4-12.4 23-Nov-2010 PT (PROTHROMBIN TIME) 10:03 ([facility]) (42186) 6. Saturday Dosage 7.5 mg (Normal) 7. Saturday Dosage 5 mg (Normal) 1. Saturday Dosage 5 mg (Normal) 2. Saturday Dosage 7.5 mg (Normal) 3. Saturday Dosage 5 mg (Normal) 4. Saturday Dosage 7.5 mg (Normal) 5. Dosage 5 mg (Normal) INR 2.16 (Normal) PT 21.0 s (Abnormal) Range: 10.4-12.4 19-Oct-2010 PT (PROTHROMBIN TIME) 15:16 ([facility]) (19560) 6. Saturday Dosage 5 mg (Normal) 7. Saturday Dosage 7.5 mg (Normal) 3. Saturday Dosage 7.5 mg (Normal) 4. Saturday Dosage 5 mg (Normal) 5. Dosage 7.5 mg (Normal) 1. Saturday Dosage 7.5 mg (Normal) 2. Saturday Dosage 5 mg (Normal) INR 2.13 (Normal) PT 20.7 s (Abnormal) Range: 10.4-12.4 12-Sep-2010 PT (PROTHROMBIN TIME) 11:03 ([facility]) (52767) INR 2.57 (Normal) PT (PROTHROMBIN TIME) 24.8 s (Abnormal) Range: 11.5-13.5 22-Aug-2010 PT (PROTHROMBIN TIME) 13:41 ([facility]) (76869) 09-Aug-2010 PSA, MEDICARE (G0103) Comments: please fax to dr hema boswell 09:54 PSA (Medicare) 4.83 ng/mL (Abnormal) Range: 0 - 4 09:34 PT (PROTHROMBIN TIME) ([facility]) (87821) INR 2.68 (Normal) PT (PROTHROMBIN TIME) 25.8 s (Abnormal) Range: 11.5-13.5 27-Jun-2010 PT (PROTHROMBIN TIME) 08:38 ([facility]) (86213) 26-Jun-2010 PT (PROTHROMBIN TIME) 16:21 ([facility]) (39463) INR 1.89 (Normal) PT (PROTHROMBIN TIME) 18.4 s (Abnormal) Range: 11.5-13.5 Treatment Plan PT (PROTHROMBIN TIME) ([facility]) (85046); Ordered: 04/05/2014Routine Venipuncture ( 11197); Ordered: 04/05/2014 Advance Directives No Advance Directives available. Encounters Lab entry only - Encounter for long-term (current) use of anticoagulants ( V58.61 | Z79.01) On [facility] 13:22 Lab entry only - Elevated PSA (790.93), Encounter for long-term (current) use of anticoagulants (V58.61 | Z79.01) On [facility] 14:27 Office Visit - Foot pain, left [...] in the morning and on stairs. [facility] Historical Summary On 28-Dec-2013 [facility] 12:26 Medication Entry - Encounter for long-term (current) use of anticoagulants ( V58.61 | Z79.01), Diabetes mellitus (250.00 | E11.9), Fibrillation, atrial ( 427.31) On 03-Nov-2013 [facility] 09:01 Medication Entry - Fibrillation, atrial (427.31), Diabetes mellitus (250.00 | E11.9) On 30-Oct-2013 [facility] 15:55 Lab entry only - Encounter for long-term (current) use of anticoagulants ( V58.61 | Z79.01) On 27-Oct-2013 [facility] 17:57 Office Visit - Need for prophylactic [...] M.D. after being in the hospital at [facility] on 10/16/13 & discharged on 10/17/13 dx jasmeet diaz, inr was done prior to visit.) . Note for "Transition into care": He passed a kidney stone a week ago.[facility] Historical Summary On 23-Oct-2013 [facility] 14:42 Lab entry only - Encounter for long-term (current) use of anticoagulants ( V58.61 | Z79.01) On 20-Oct-2013 [facility] 16:31 Lab entry only - Encounter for long-term (current) use of anticoagulants ( V58.61 | Z79.01) On 16-Sep-2013 [facility] 10:14 Lab entry only - Elevated PSA (790.93) On 15-Sep-2013 [facility] 11:11 Lab entry only - Encounter for long-term (current) use of anticoagulants ( V58.61 | Z79.01) On 07-Aug-2013 [facility] 14:32 Lab entry only - Benign essential hypertension (401.1 | I10), Diabetes mellitus (250.00 | E11.9) On 07-Aug-2013 [facility] 11:18 Lab entry only - Encounter for long-term (current) use of anticoagulants ( V58.61 | Z79.01) On 01-May-2013 [facility] 10:33 Office Visit - Diabetes mellitus (250.00 [...] did miss some meds while he traveled.[facility] Historical Summary On 29-Apr-2013 [facility] 11:46 Lab entry only - Encounter for long-term (current) use of anticoagulants ( V58.61 | Z79.01) On [facility] 16:39 Lab entry only - Encounter for long-term (current) use of anticoagulants ( V58.61 | Z79.01) On [facility] 19:40 Lab entry only - Elevated PSA (790.93) On [facility] 12:03 Office Visit - 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 | [...] "Cough": He has not had an antibiotic.[facility] Lab entry only - Encounter for long-term (current) use of anticoagulants ( V58.61 | Z79.01) On 16-Dec-2012 [facility] 18:21 Lab entry only - Encounter for long-term (current) use of anticoagulants ( V58.61 | Z79.01) On 27-Nov-2012 [facility] 16:52 Lab entry only - Encounter for long-term (current) use of anticoagulants ( V58.61) On 26-Nov-2012 [facility] 15:04 Office Visit - Encounter for long-term [...] thing in the morning and on stairs.[facility] Historical Summary On 29-Oct-2012 [facility] 16:15 Lab entry only - Encounter for long-term (current) use of anticoagulants ( V58.61) On 15-Oct-2012 [facility] 09:51 Lab entry only - Encounter for long-term (current) use of anticoagulants ( V58.61), Elevated PSA (790.93) On 14-Oct-2012 [facility] 10:25 Lab entry only - Encounter for long-term (current) use of anticoagulants ( V58.61) On 12-Sep-2012 [facility] 13:44 Medication Entry - Edema (782.3), Fibrillation, atrial (427.31) On 20-Aug-2012 [facility] 11:10 Medication Entry - Fibrillation, atrial (427.31), Edema (782.3) On 19-Aug-2012 [facility] 17:29 Medication Entry - Encounter for long-term (current) use of anticoagulants ( V58.61), Fibrillation, atrial (427.31), Diabetes mellitus (250.00) On 2011 [facility] 17:44 Office Visit - 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), Inflamed seborrheic keratosis (702.11), Hyperglycemia (790.29), Encounter for long-term (current) use of anticoagulants (V58.61), Fibrillation, atrial (427.31) On 01-Aug-2012 Encounter Reason: Follow up for chronic condition - The patient feels well with minor complaints (here today for a 3 month follow up with Dr. Romero ) .[facility] 09:34 Medication Entry - Encounter for long-term (current) use of anticoagulants ( V58.61) On 31-Jul-2012 [facility] 18:21 Historical Summary On 31-Jul-2012 [facility] 11:40 Lab entry only - Encounter for long-term (current) use of anticoagulants ( V58.61) On 23-Jun-2012 [facility] 18:47 Lab entry only - Elevated PSA (790.93), Encounter for long-term (current) use of anticoagulants (V58.61) On 23-Jun-2012 [facility] 15:48 Office Visit - Adjustment disorder with depressed mood (309.0), Encounter for long-term (current) use of anticoagulants (V58.61), Elevated PSA (790.93) On Encounter Reason: Follow up for chronic condition - The patient feels well with minor complaints (here for a 6 week follow up visit do to a new medication but did not start the medication).[facility] 11:19 Historical Summary On 30-Apr-2012 [facility] 11:50 Lab entry only - Encounter for long-term (current) use of anticoagulants ( V58.61) On 28-Apr-2012 [facility] 17:23 Lab entry only - Elevated PSA (790.93), Encounter for long-term (current) use of anticoagulants (V58.61) On 28-Apr-2012 [facility] 14:19 Office Visit - Hyperglycemia (790.29), Fibrillation, [...] had lab done prior to appt today).[facility] Lab entry only - Edema (782.3), Hyperglycemia (790.29), Encounter for long- term (current) use of anticoagulants (V58.61) On [facility] 11:06 Lab entry only - Elevated PSA (790.93), Fibrillation, atrial (427.31), Edema ( 782.3) On [facility] 09:02 Lab entry only - Encounter for long-term (current) use of anticoagulants ( V58.61) On [facility] 16:44 Medication Entry On 26-Oct-2011 [facility] 13:30 Lab entry only - Elevated PSA (790.93) On 23-Oct-2011 [facility] 11:01 Lab entry only - Encounter for long-term (current) use of anticoagulants ( V58.61), Low testosterone (257.2) On 17-Oct-2011 [facility] 10:15 Medication Entry - Fibrillation, atrial (427.31) On 04-Oct-2011 [facility] 09:26 Medication Entry - Fibrillation, atrial (427.31), Edema (782.3), Encounter for long-term (current) use of anticoagulants (V58.61), Benign prostatic hypertrophy without lower urinary tract symptoms (LUTS) (600.00) On 02-Oct-2011 [facility] 18:56 Medication Entry - Encounter for long-term (current) use of anticoagulants ( V58.61), Fibrillation, atrial (427.31), Edema (782.3) On 26-Sep-2011 [facility] 11:06 Medication Entry - Fibrillation, atrial (427.31), Encounter for long-term ( current) use of anticoagulants (V58.61) On 24-Sep-2011 [facility] 10:41 Lab entry only - Low testosterone (257.2) On 10-Aug-2011 [facility] 13:03 Lab entry only - Hyperglycemia (790.29), Encounter for long-term (current) use of anticoagulants (V58.61), Fibrillation, atrial (427.31) On 08-Aug-2011 [facility] 13:27 Office Visit - Fibrillation, atrial (427.31), [...] 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." [facility] Historical Summary On 06-Aug-2011 [facility] 12:22 Medication Entry - Fibrillation, atrial (427.31) On 05-Jun-2011 [facility] 08:54 Lab entry only - Encounter for long-term (current) use of anticoagulants ( V58.61) On 15-May-2011 [facility] 18:48 Office Visit - Edema (782.3), Encounter [...] is diabetes, hypertension, cardiovascular disorder and other.[facility] Medication Entry - Benign prostatic hypertrophy without lower urinary tract symptoms (LUTS) (600.00) On 19-Apr-2011 [facility] 08:49 Lab entry only - Benign prostatic 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 boswell the middle of apr.). [facility] Historical Summary On [facility] 16:05 Lab entry only - Encounter for long-term (current) use of anticoagulants ( V58.61) On [facility] 17:34 Lab entry only - Encounter for long-term (current) use of anticoagulants ( V58.61), Elevated PSA (790.93) On [facility] 09:42 Lab entry only - Encounter for long-term (current) use of anticoagulants ( V58.61) On 24-Nov-2010 [facility] 08:55 Lab entry only - Encounter for long-term (current) use of anticoagulants ( V58.61) On 20-Oct-2010 [facility] 14:42 Historical Summary - Encounter for long-term (current) use of anticoagulants ( V58.61) On 13-Sep-2010 [facility] 10:53 Historical Summary On 12-Sep-2010 [facility] 19:13 Lab entry only - Encounter for long-term (current) use of anticoagulants ( V58.61) On 14-Aug-2010 [facility] 17:44 Historical Summary - Elevated PSA (790.93) On 09-Aug-2010 [facility] 09:32 Lab entry only - Encounter for long-term (current) use of anticoagulants ( V58.61) On 27-Jun-2010 [facility] 08:35 Lab entry only - Encounter for long-term (current) use of anticoagulants ( V58.61) On 26-Jun-2010 [facility] 16:21 Insurance Vijay Yuan; gwen guarantorMedicare [employer] [employer]
--- OUTSIDE RECORDS SUMMARY | 2017-10-22 17:38 | External Medical Summary | Continuity of Care Document ---
:1940 Author Organization [facility] Address [address] [place] [address] Phone Care Team Providers Name Role Phone James Romero MD Primary Care Provider James Romero MD Unavailable Jorje Armstrong MD Unavailable Unavailable Unavailable Problems Name Dates Details Adjustment disorder with depressed mood (309.0, F43.21) Status: Active Ankle pain, right (719.47, M25.571) Status: Active Benign essential hypertension (401.1, I10) Status: Active Benign prostatic hypertrophy (600.00, N40.0) Status: Active Benign prostatic hypertrophy with urinary frequency (600.01, N40.1) Status: Active Bilateral knee pain (719.46, M25.561) Status: Active Cellulitis, leg (682.6, L03.119) Status: Active Controlled atrial fibrillation (427.31, I48.91) Status: Active Controlled diabetes mellitus (250.00, E11.9) Status: Active Controlled gout (274.9, M10.9) Status: Active Cough (786.2, R05) Status: Active 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, 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 Edema (Renamed from Accumulation of fluid in tissues) (782.3, R60.9) Status : Active Elevated PSA (790.93, R97.2) Status: Active Encounter for long-term (current) use of anticoagulants (V58.61, Z79.01) Status: Active Foot pain, left (729.5, M79.672) Status: Active Health education (V65.40, Z71.9) Status: Active Hydronephrosis, left (591, N13.30) Status: Active Hyperglycemia (Renamed from Blood glucose elevated) (790.29, R73.9) Status: Active Hypertrophic and atrophic condition of skin (701.9, L91.9) Status: Active Inflamed seborrheic keratosis (702.11, L82.0) Status: Active 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, 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) Status: Active Low testosterone (257.2, E29.1) Status: Active Malaise and fatigue (780.79, R53.81) Status: Active Mild atherosclerosis of both carotid arteries (433.10, I65.23) Status: Active Need for prophylactic vaccination and inoculation against influenza (V04.81, Z23) Status: Active Need for vaccination with 13-polyvalent pneumococcal conjugate vaccine (V03.82 , Z23) Status: Active 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, 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 Obstructive sleep apnea (327.23, G47.33) Status: Active Osteoarthritis, multiple sites (715.89, M15.9) Status: Active PG (pyogenic granuloma) (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.1, L98.0) Status: Active Renal lithiasis (592.0, N20.0) Status: Active Stasis dermatitis (Renamed from Dermatitis, stasis) (454.1, I83.10) Status: Active Medications Name Dates Details ALLOPURINOL, 300MG (Oral Tablet) 1/2 Tablet Tablet daily for 30 days Quantity: 30 {Tablet} Refills: 6 Ordered:28-Oct-2014 James Romero MD Start 28-Oct-2014 Active Comments:1/2 daily ATORVASTATIN CALCIUM, 20MG (Oral Tablet) 1 (one) Tablet at bedtime for 30 days Quantity: 30 {Tablet} Refills: 10 Ordered:25-Jul-2015 James Romero MD Start 25-Jul-2015 Active COLCHICINE-PROBENECID, 0.5-500MG (Oral Tablet) 1 (one) Tablet Tablet as needed for 14 days Quantity: 30 {Tablet} Refills: 2 Ordered:12-Oct-2014 James Romero MD Start 12-Oct-2014 Active Comments:Medication taken as needed. DIGOXIN, 0.25MG (Oral Tablet) 1 Tablet daily for 90 days Quantity: 90 {Tablet} Refills: 4 Ordered:03-Nov-2013 GarretDayorickey Start 03-Nov-2013 Active DILTIAZEM HCL ER, 240MG [...] taken as needed. TRIAMTERENE-HCTZ, 37.5-25MG (Oral Capsule) PRN (37.5-25 MG) Active WARFARIN SODIUM, 5MG (Oral Tablet) one Tablet 5mg for one day then 7.5mg for 2 days then repeat cycle for 90 days Quantity: 135 {Tablet} Refills: 4 Ordered:08-Dec-2012 James Romero MD Start 08-Dec-2012 Active BACTRIM DS, 800-160MG (Oral Tablet) 1 (one) Tablet two times daily for 10 days Quantity: 20 {Tablet} Refills: 0 Ordered:11-Nov-2014 Nohelia Combs Start 11-Nov-2014 End 21-Nov-2014 Inactive BACTRIM DS, 800-160MG (Oral Tablet) 1 two times daily (800-160 MG) Inactive Comments:04-30-[address] elbert TURNER, 500MG (Oral Tablet) 1 two times daily (500 MG) Inactive Comments:started on 10/17/13 after being dismissed from [facility] for kidney stone by gale CITALOPRAM HYDROBROMIDE, 20MG (Oral Tablet) 1 Tablet daily for 30 days Quantity: 30 {Tablet} Refills: 2 Ordered:01-May-2012 MtmiryamNohelia Start End 01-May-2012 Inactive Comments:May increase to 2 in 10 days, if able and can refill with 40mg DIGOXIN, 0.25MG (Oral Tablet) 1 Tablet daily for 90 days Quantity: 90 {Tablet} Refills: 4 Ordered:30-Oct-2012 Dayo Combsrickey Start 19-Aug-2012 End 30-Oct-2012 Inactive DILTIAZEM HCL, 240MG (Oral Capsule Extended Release 24 Hour) daily (240 MG) Inactive DOXAZOSIN MESYLATE, 4MG (Oral Tablet) daily (4 MG) Inactive DYAZIDE, 37.5-25MG (Oral [...] Comments:use if helpful LISINOPRIL, 20MG (Oral Tablet) daily (20 MG) Inactive METFORMIN HCL, 500MG (Oral Tablet) 1 Tablet daily for 90 days Quantity: 90 {Tablet} Refills: 4 Ordered:30-Oct-2012 MtNohelia witt Start 24-Sep-2011 End 30-Oct-2012 Inactive NORCO, 5-325MG (Oral Tablet) 1 take one tablet every four hours as needed for pain (5-325 MG) Inactive Comments:Medication taken as needed. 10/17/13 dx kidney stone from being discharged from [facility] testrone cream 10% apply 0.5ml daily Inactive TRUEPLUS LANCETS 28G (Miscellaneous) 1 (one) Misc Misc use as directed once daily for 100 days Quantity: 100 {Box} Refills: 4 Ordered:25-Jul-2015 Faby Torres Start 23-Dec-2014 End 25-Jul-2015 Inactive Comments:dx 250.00 TRUETEST TEST (In Vitro Strip) 1 (one) Strip Strip use as directed once daily for 50 days Quantity: 50 {Strip} Refills: 8 Ordered:25-Jul-2015 Faby Torres Start 12-Nov-2014 End 25-Jul-2015 Inactive Comments:dx 250.00 ZITHROMAX, 250MG (Oral Tablet) 2, then 1 (one) Tablet daily for 5 days Quantity: 6 {Tablet} Refills: 0 Ordered:02-Jan-2013 James Romero MD Start 02-Jan-2013 End 07-Jan-2013 Inactive Allergies and Adverse Reactions Name Dates Details No Known Allergies (Allergy) Onset: Status: Active No Known Drug Allergies (Allergy) Onset: Status: Active Past Medical History No Significant Medical History. Procedures Procedure Dates Details How to access health information Completed:27-Jul-2015 online Skin Conditions Completed:27-Jul-2015 Follow up in 2 weeks Ordered:27-Jul-2015 HIGH DOSE QUADRIVALENT INFLUENZA Ordered:25-Jul-2015 VACCINE ([id number]) ADMINISTRATION OF INFLUENZA VIRUS Ordered:25-Jul-2015 VACCINE (G0008) Follow up in 3 months Ordered:25-Jul-2015 Follow up in 4 months Ordered: X-RAY EXAM OF KNEE, 1 OR 2 VIEWS Completed: Comments: right (13757) X-RAY EXAM OF BOTH KNEES, Completed: STANDING (32485) How to access health information Completed: online Follow up - Keep appt as scheduled Ordered:28-Oct-2014 CAROTID BILATERAL US ([id number]) Completed:14-Sep-2014 Comments: Verbal order from Dr. James Romero Follow up in 6 months Ordered:12-Aug-2014 PREVNAR 13 VALENT PNEUMOCOCCAL Completed:12-Aug-2014 VACCINE (15150) ADMINISTRATION OF PNEUMOCOCCAL Ordered:12-Aug-2014 CONJUGATE VACCINE (G0009) How to access health information Completed:12-Aug-2014 online Follow up in 6 months Ordered: Follow up in 2 months Ordered:26-Oct-2013 ADMIN INFLUENZA VIRUS VAC: FLU VACC Completed:26-Oct-2013 PRSV FREE INC ANTIG ([id number]) ADMINISTRATION OF INFLUENZA VIRUS Ordered:26-Oct-2013 VACCINE (G0008) Follow up in 6 months Ordered:30-Apr-2013 Follow up - Keep appt as scheduled Ordered:02-Jan-2013 Follow up in 6 months Ordered:30-Oct-2012 Follow up in 3 months Ordered:01-Aug-2012 Follow up in 3 months Ordered:01-May-2012 Follow up in 6 weeks Ordered: ADMINISTRATION OF INFLUENZA VIRUS Ordered:14-May-2011 VACCINE (G0008) FLU VACC PRSV FREE INC ANTIG Completed:14-May-2011 (29903) Follow up in 2 months Ordered:14-May-2011 Follow up in 2 months Ordered: Annual Eye Exam Completed:22-Nov-2008 Colonoscopy, Screening Completed: Colonoscopy, Screening Completed:06-Oct-2014 Flu Vaccine Completed:26-Oct-2013 Flu Vaccine Completed:06-Jun-2012 Comments: [facility] Flu Vaccine Completed:14-May-2011 Comments: high dose Pneumovax Completed:2008 prevnar 13 Completed:12-Aug-2014 PSA Completed:28-Apr-2012 Comments: (16.45) PSA Completed:10-Apr-2011 Comments: (5.95) PSA Completed:23-Jun-2012 Comments: (8.05) PSA Completed:14-Oct-2012 Comments: (8.11) PSA Completed: Comments: (5.60) PSA Completed:15-Sep-2013 Comments: (5.40) PSA Completed: Comments: (6.15) PSA Completed:24-Aug-2014 Comments: (7.11) PSA Completed: Comments: (6.55) Immunization Name Dates Details Fluzone Administered on:14-May-2011 Comments: Site: Deltoid (Left); high dose Lot #: [id number] Influenza, preserv. free, enhanced immunogncty, IM Administered on:2013 Comments: Site: Deltoid (Left) Lot #: [id number] Pneumococcal conjugate vaccine, 13 valent, IM Administered on:12-Aug-2014 Comments: Site: Deltoid (Left) Lot #: [id number] Social History Name Dates Details Tobacco use: Former smoker. Status: Active Current tobacco use: Former smoker. Status: Inactive Vital Signs Date Test Result Details 25-Jul-2015 14:42 Temperature 98.4 f Comments: Method: Temporal Pulse 88 /min Comments: Pattern: Regular BP Systolic 136 mm[Hg] Comments: Patient Position: Sitting; Cuff Location: Left Arm; Cuff Size: Large BP Diastolic 76 mm[Hg] Comments: Patient Position: Sitting; Cuff Location: Left Arm; Cuff Size: Large Weight 237 lb Height 73 in Body Mass Index Calculated 31.27 kg/m2 Body Surface Area Calculated 2.31 m2 09:20 Temperature 98.4 f Comments: Method: Temporal Pulse 76 /min Comments: Pattern: Regular Respiration Rate 20 /min Comments: Pattern: Unlabored BP Systolic 142 mm[Hg] Comments: Patient Position: Sitting; Cuff Location: Left Arm; Cuff Size: Standard BP Diastolic 80 mm[Hg] Comments: Patient Position: Sitting; Cuff Location: Left Arm; Cuff Size: Standard Weight 231 lb Height 72.75 in Body Mass Index Calculated 30.69 kg/m2 Body Surface Area Calculated 2.28 m2 28-Oct-2014 11:37 Temperature 98.4 f Comments: Method: [...] Comments: The left neck Final 10:36 SINGLE (05120) lesion was removed and also the left [...] not sent to pathology. 10:35 PUNCH BIOPSY ([id number]) Comments: After Final FIRST BIOPSY cleansing the left forearm with Hibiclens solution x3, the area was anesthetized with 1 cc 1% lidocaine and a 2 mm punch was used and elevated with sterile scissors and sent to pathology. Silver nitrate stick was for cautery. 06-Jul-2015 PT (PROTHROMBIN TIME) Comments: Items in this order include: Draw Charge[i], Protime & INRDoes patient have a artifical heart valve? No 15:06 ([facility]) (70774) 9. Saturday Dosage 7.5 mg (Normal) 8. Saturday Dosage 5.0 mg (Normal) 7. Dosage 7.5 mg (Normal) 6. Saturday Dosage 7.5 mg (Normal) 4. Saturday Dosage 5.0 mg (Normal) 5. Saturday Dosage 7.5 mg (Normal) 3. Saturday Dosage 7.5 mg (Normal) INR 1.55 (Normal) PT 16.8 s (Abnormal) Range: 9.3-11.7 15:06 Routine Venipuncture Comments: Items in this order include: Draw Charge[i], Protime & INR ([id number]) Draw Drawn (Normal) [facility] ([id number]) Comments: Items in this order include: Basic Metabolic Panel 09:21 GLU 183 mg/dL (Abnormal) Range: 70-110 CA 8.7 mg/dL (Normal) Range: 8.4-10.2 eGFR 48.9 mL/min/1.73m2 Range: >60.0 (Abnormal) CREAT 1.5 mg/dL (Abnormal) Range: 0.6-1.3 OSMO 291 (Normal) Range: 275-295 BUN 24 mg/dL (Abnormal) Range: 7-18 AGAP 14.00 mmol/L (Normal) Range: 10.00-20.00 CO2 26.9 mmol/L (Normal) Range: 21.0-32.0 CL 104 mmol/L (Normal) Range: 98-107 K 3.9 mmol/L (Normal) Range: 3.5-5.0 NA 141 mmol/L (Normal) Range: 135-145 09:25 PSA (PROSTATE SPECIFIC Comments: A copy of this report will be faxed to: Bettie Boswell in this order include: A COPY TO [kyung], PSA ANTIGEN) ([id number]) PSA 6.55 ng/mL (Abnormal) Range: 0.00-4.00 09:[address] Boswell Comments: A copy of this report will be faxed to: Bettie Boswell in this order include: A COPY TO [kyung], PSA Ordering Doctor . (Normal) 09:15 PT (PROTHROMBIN TIME) Comments: Items in this order include: Draw Charge[i], Protime & INRDoes patient have a artifical heart valve? No ([facility]) (37570) 8. Saturday Dosage 7.5 mg (Normal) 9. Saturday Dosage 5.0 mg (Normal) 7. Dosage 5.0 mg (Normal) 6. Saturday Dosage 7.5 mg (Normal) 5. Saturday Dosage 5.0 mg (Normal) 4. Saturday Dosage 7.5 mg (Normal) 3. Saturday Dosage 5.0 mg (Normal) INR 1.91 (Normal) PT 20.8 s (Abnormal) Range: 9.3-11.7 09:15 Routine Venipuncture Comments: Items in this order include: Draw Charge[i], Protime & INR (63170) Draw Drawn (Normal) -Dec-2014 PT (PROTHROMBIN TIME) Comments: Items in this order include: Draw Charge[i], Protime & INRDoes patient have a artifical heart valve? No 09:28 ([facility]) (15581) 9. Saturday Dosage 5.0 mg (Normal) 7. Dosage 7.5 mg (Normal) 8. Saturday Dosage 7.5 mg (Normal) 6. Saturday Dosage 5.0 mg (Normal) 4. Saturday Dosage 5.0 mg (Normal) 5. Saturday Dosage 7.5 mg (Normal) 3. Saturday Dosage 7.5 mg (Normal) INR 1.32 (Normal) PT 14.2 s (Abnormal) Range: 9.3-11.7 09:28 Routine Venipuncture Comments: Items in this order include: Draw Charge[i], Protime & INR (11091) Draw Drawn (Normal) 28-Oct-2014 PT (PROTHROMBIN TIME) Comments: Items in this order include: Draw Charge[i], Protime & INRDoes patient have a artifical heart valve? No 10:48 ([facility]) (56284) 9. Saturday Dosage 7.5 mg (Normal) 8. [...] order include: Draw Charge[i], Protime & INR (35711) Draw Drawn (Normal) 29-Nov-2014 PT (PROTHROMBIN TIME) Comments: Items in this order include: Draw Charge[i], Protime & INRDoes patient have a artifical heart valve? No 10:28 ([facility]) (93640) 9. day Dosage 5.0 mg (Normal) 8. [...] order include: Draw Charge[i], Protime & INR (29984) Draw Drawn (Normal) 21-Sep-2014 PT (PROTHROMBIN TIME) Comments: Items in this order include: Draw Charge[i], Protime & INRDolynn patient have a artifical heart valve? No 10:08 ([facility]) (04852) 9. Saturday Dosage 5.0 mg (Normal) 7. [...] order include: Draw Charge[i], Protime & INR (87330) Draw Drawn (Normal) 24-Aug-2014 Routine Venipuncture Comments: Items in this order include: Protime & INR, Draw Charge[i] 09:59 (45515) Draw Drawn (Normal) 09:59 PT (PROTHROMBIN TIME) Comments: Items in this order include: Protime & INR, Draw Charge[i]INR value > 3.0 given to Estella by Beny Buckley patient have a artifical heart valve? No ([facility]) (87927) 9. Saturday Dosage 7.5 mg (Normal) 7. [...] Panel, Hemoglobin A1C, Urine Microalbumin, CBC ONE! (56828) manual diff Not Indicated (Normal) mpv 9.60 [...] Metabolic Panel, Hemoglobin A1C, Urine Microalbumin, CBC (57463) U A:C RATIO <30 mg/g Normal Range: <30 mg/g Normal (Normal) U CREAT 200 mg/dL (Normal) Range: 10-300 U ALB 80 mg/L (Abnormal) Range: 10 mg/L 09:59 HEMOGLOBIN GLYCLATED Comments: Items in this order include: Digoxin , PSA, Basic Metabolic Panel, Hemoglobin A1C, Urine Microalbumin, CBC (HGB A1C) (43142) A1C 5.9 % (Normal) Range: 4.6-6.2 Comments: Increased risk of diabetes. 09:59 [facility] (84934) Comments: Items in this order include: Digoxin, [...] Panel, Hemoglobin A1C, Urine Microalbumin, CBC ANTIGEN) (12580) PSA 7.11 ng/mL (Abnormal) Range: 0.00-4.00 09:59 DIGOXIN (90591) Comments: Items in this order include: Digoxin, PSA , Basic Metabolic Panel, Hemoglobin A1C, Urine Microalbumin, CBCTime of Last Dose? 08/23/2014 8:00 AMDosage? 0.25 DIG 0.36 ng/mL (Abnormal) Range: 0.90-2.00 05-Aug-2014 PT (PROTHROMBIN TIME) Comments: Items in this order include: Draw Charge[i], Protime & INRDoes patient have a artifical heart valve? No 10:48 ([facility]) (86798) 8. Saturday Dosage 7.5 mg (Normal) 9. [...] order include: Draw Charge[i], Protime & INR (09130) Draw Drawn (Normal) 03-Jun-2014 PT (PROTHROMBIN TIME) Comments: Items in this order include: Draw Charge[i], Protime & INRDoes patient have a artifical heart valve? No 13:56 ([facility]) (43035) 9. Saturday Dosage 7.5 mg (Normal) 8. [...] order include: Draw Charge[i], Protime & INR (70401) Draw Drawn (Normal) PT (PROTHROMBIN TIME) Comments: Items in this order include: Protime & INRDoes patient have a artifical heart valve? No 14:25 ([facility]) (01949) 9. Saturday Dosage 5.0 mg (Normal) 8. [...] this order include: Draw Charge[i], PSA ANTIGEN) (25741) PSA 6.15 ng/mL (Abnormal) Range: 0.00-4.00 14:25 Routine Venipuncture Comments: A copy of this report will be faxed to: Bettie Boswell in this order include: Draw Charge[i], PSA ([id number]) Draw Drawn (Normal) HEMOGLOBIN GLYCLATED Comments: Items in this order include: Hemoglobin A1C, Draw Charge[i], Comprehensive Metabolic Panel, Uric Acid 15:06 (HGB A1C) (18087) A1C 5.7 % (Normal) Range: 4.6-6.2 15:06 CMP (87525) Comments: Items in this order include: Hemoglobin [...] (Normal) Range: 135-145 15:06 URIC ACID BLOOD (35864) Comments: Items in this order include: Hemoglobin A1C, Draw Charge[i], Comprehensive Metabolic Panel, Uric Acid Uric Acid 8.0 mg/dL (Abnormal) Range: 3.6-7.7 15:06 Routine Venipuncture Comments: Items in this order include: Hemoglobin A1C, Draw Charge[i], Comprehensive Metabolic Panel, Uric Acid (31959) Draw Drawn (Normal) PT (PROTHROMBIN TIME) Comments: Items in this order include: Draw Charge[i], Protime & INRDoes patient have a artifical heart valve? No 14:27 ([facility]) (65540) 8. Saturday Dosage 5.0 mg (Normal) 9. [...] order include: Draw Charge[i], Protime & INR (94904) Draw Drawn (Normal) 26-Oct-2013 Draw Charge[i] Comments: Items in this order include: Basic Metabolic Panel, Draw Charge[i] 17:08 Draw Drawn (Normal) 17:05 [facility] (04828) Comments: Items in this order include: Basic [...] patient have a artifical heart valve? No ([facility]) (45886) 9. Saturday Dosage 5.0 mg (Normal) 7. [...] order include: Draw Charge[i], Protime & INR (28575) Draw Drawn (Normal) 15-Sep-2013 PSA (PROSTATE SPECIFIC Comments: A copy of this report will be faxed to: Bettie Boswell in this order include: A COPY TO [eliana PSAPSA allowed more than once a year due to being a Diagonistic PSA not a screening PSA 11:05 ANTIGEN) ([id number]) PSA 5.40 ng/mL (Abnormal) Range: 0.00-4.00 11:05 [...] this order include: Comprehensive Metabolic Panel, Hemoglobin [id number] Hgb A1C was ran 99 Days ago. Check by MARGARITA 10:38 (HGB A1C) (76753) A1C 5.9 % (Normal) Range: 4.6-6.2 Comments: Increased risk of diabetes. 10:38 [facility] (17284) Comments: Items in this order include: Comprehensive Metabolic Panel, Hemoglobin [id number] Hgb A1C was ran 99 Days ago. [...] patient have a artifical heart valve? No ([facility]) (70366) 9. Saturday Dosage 5.0 (cycle of 5,5,7.5 [...] order include: Draw Charge[i], Protime & INR (09420) Draw Drawn (Normal) 10:38 DIGOXIN (08581) Comments: Items in this order include: DigoxinTime of Last Dose? 08/06/2013 8:30 AMDosage? 0.25 mg daily DIG 0.48 ng/mL (Abnormal) Range: 0.90-2.00 30-Apr-2013 HEMOGLOBIN GLYCLATED Comments: Items in this order include: Comprehensive Metabolic Panel, CBC, Hemoglobin [id number] Hgb A1C was ran 225 Days ago. Check by ms 11:58 (HGB A1C) (17172) A1C 6.1 % (Normal) Range: 4.6-6.2 11:58 CBC MALE- ORDER THIS Comments: Items in this order include: Comprehensive Metabolic Panel, CBC, Hemoglobin [id number] Hgb A1C was ran 225 Days ago. Check by ms ONE! ([id number]) manual diff Not Indicated (Normal) mpv 4.88 [...] 6.15 10*3/uL (Normal) Range: 4.50-10.50 11:58 CMP (78381) Comments: Items in this order include: Comprehensive Metabolic Panel, CBC, Hemoglobin [id number] Hgb A1C was ran 225 Days ago. [...] patient have a artifical heart valve? No ([facility]) (71949) 4. Saturday Dosage Repeat mg (Normal) 3. Saturday Dosage 7.5 mg (Normal) 2. Saturday Dosage 5.0 mg (Normal) 1. Saturday Dosage 5.0 mg (Normal) INR 2.60 (Normal) PT 26.8 s (Abnormal) Range: 10.4-12.4 PT (PROTHROMBIN TIME) Comments: Items in this order include: Draw Charge[i], Protime & INRDoes patient have a artifical heart valve? No 15:12 ([facility]) (03332) 5. Dosage Repeat mg (Normal) 4. Saturday Dosage 5.0 mg (Normal) 3. Saturday Dosage 5.0 mg (Normal) 2. Saturday Dosage 7.5 mg (Normal) INR 2.31 (Normal) PT 24.0 s (Abnormal) Range: 10.4-12.4 15:12 Routine Venipuncture Comments: Items in this order include: Draw Charge[i], Protime & INR ([id number]) Draw Drawn (Normal) PSA (PROSTATE SPECIFIC Comments: A copy of this report will be faxed to: Boswell, BrianItems in this order include: PSA, Draw Charge[i]PSA allowed more than once a year due to being a Diagonistic PSA not a screening PSA 10:00 ANTIGEN) (05952) PSA 5.60 ng/mL (Abnormal) Range: 0.00-4.00 10:00 Draw Charge[i] Comments: A copy of this report will be faxed to: Hema BoswellIte in this order include: PSA, Draw Charge[i]PSA allowed more than once a year due to being a Diagonistic PSA not a screening PSA Draw Drawn (Normal) 10:09 PT (PROTHROMBIN TIME) Comments: Items in this order include: Draw Charge[i], Protime & INRDoes patient have a artifical heart valve? No ([facility]) (97206) 3. Saturday Dosage Repeat mg (Normal) 2. Saturday Dosage 7.5 mg (Normal) 1. Saturday Dosage 5.0 mg (Normal) INR 2.64 (Normal) PT 27.2 s (Abnormal) Range: 10.4-12.4 10:09 Routine Venipuncture Comments: Items in this order include: Draw Charge[i], Protime & INR (58922) Draw Drawn (Normal) 16-Dec-2012 PT (PROTHROMBIN TIME) Comments: Items in this order include: Draw Charge[i], Protime & INRDoes patient have a artifical heart valve? No 10:46 ([facility]) (63385) 4. Saturday Dosage Repeat mg (Normal) 3. Saturday Dosage 5.0 mg (Normal) 2. Saturday Dosage 7.5 mg (Normal) INR 2.13 (Normal) PT 22.2 s (Abnormal) Range: 10.4-12.4 10:46 Routine Venipuncture Comments: Items in this order include: Draw Charge[i], Protime & INR (21563) Draw Drawn (Normal) 26-Nov-2012 Routine Venipuncture Comments: Items in this order include: Protime & INR, Draw Charge[i] 15:05 (72291) Draw Drawn (Normal) 15:05 PT (PROTHROMBIN TIME) Comments: Items in this order include: Protime & INR, Draw Charge[i]Does patient have a artifical heart valve? No ([facility]) (36936) 4. Saturday Dosage 5.0 Repeat mg (Normal) 3. Saturday Dosage 5.0 mg (Normal) 2. Saturday Dosage 7.5 mg (Normal) INR 1.34 (Normal) PT 14.4 s (Abnormal) Range: 10.4-12.4 30-Oct-2012 PT (PROTHROMBIN TIME) Comments: Items in this order include: Draw Charge[i], Protime & INRINR value > 3.0 given to BW by Froy Chávez patient have a artifical heart valve? No 10:38 ([facility]) (57842) 7. Saturday Dosage 7.5 mg (Normal) 6. [...] order include: Draw Charge[i], Protime & INR (39214) Draw Drawn (Normal) 11:33 BMP Comments: Items [...] Dose? 10/29/2012 8:00 PMDosage? 0.25 mg Daily (39770) DIG 1.64 ng/mL (Normal) Range: 0.90-2.00 14-Oct-2012 PSA (PROSTATE SPECIFIC Comments: A copy of this report will be faxed to: Bettie Boswell in this order include: Draw Charge[i], Protime & INR, PSAPSA allowed more than once a year due to being a Diagonistic PSA not a screening PSA 10:25 ANTIGEN) (13305) PSA 8.11 ng/mL (Abnormal) Range: 0.00-4.00 10:25 PT (PROTHROMBIN TIME) Comments: PSA allowed more than once a year due to being a Diagonistic PSA not a screening PSACoumadin dosage=5,5,5,5,7.5 repeatDoes patient have a artifical heart valve? No ([facility]) (92407) 7. Saturday Dosage 7.5 mg (Normal) 6. [...] a Diagonistic PSA not a screening PSA (74817) Draw Drawn (Normal) 12-Sep-2012 PT (PROTHROMBIN TIME) Comments: Items in this order include: Draw Charge[i], Protime & INRDoes patient have a artifical heart valve? No 09:16 ([facility]) (72744) 6. Saturday Dosage Repeat mg (Normal) 5. Dosage 7.5 mg (Normal) 4. Saturday Dosage 5.0 mg (Normal) 3. Saturday Dosage 5.0 mg (Normal) 2. Saturday Dosage 5.0 mg (Normal) 1. Saturday Dosage 5.0 mg (Normal) INR 2.48 (Normal) PT 25.7 s (Abnormal) Range: 10.4-12.4 09:16 Routine Venipuncture Comments: Items in this order include: Draw Charge[i], Protime & INR (83391) Draw Drawn (Normal) 18-Aug-2012 PT (PROTHROMBIN TIME) Comments: Items in this order include: Protime & INRDolynn patient have a artifical heart valve? No 11:44 ([facility]) ([id number]) 7. Saturday Dosage 5.0 mg (Normal) 6. [...] Days ago. Check by KB (HGB A1C) (60030) A1C 6.2 % (Normal) Range: 4.6-6.2 Comments: High risk of diabetes. 31-Jul-2012 PT (PROTHROMBIN TIME) Comments: Items in this order include: Draw Charge[i], Protime & INRINR value > 3.0 given to Estella by Beny Buckley patient have a artifical heart valve? No 13:32 ([facility]) (66615) 7. Saturday Dosage 5.0 mg (Normal) 6. [...] order include: Draw Charge[i], Protime & INR (48792) Draw Drawn (Normal) 23-Jun-2012 PSA (PROSTATE SPECIFIC Comments: A copy of this report will be faxed to: Bettie Boswell in this order include: Draw Charge[i], Protime & INR, PSAPSA allowed more than once a year due to being a Diagonistic PSA not a screening PSA 15:50 ANTIGEN) (72702) PSA 8.05 ng/mL (Abnormal) Range: 0.00-4.00 15:50 PT (PROTHROMBIN TIME) Comments: A copy of this report will be faxed to: Bettie Boswell in this order include: Draw Charge[i], Protime & INR , PSAPSA allowed more than once a year due to being a Diagonistic PSA not a screening ([facility]) (82604) PSADoes patient have a artifical heart valve? [...] a Diagonistic PSA not a screening PSA (56230) Draw Drawn (Normal) 13-May-2012 Draw Charge[i] Comments: [...] of this report will be faxed to: Bettei Boswell in this order include: Draw Charge[i], Protime & INR, PSAplease fax the results to dr. hema boswell 14:28 ANTIGEN) (15554) PSA 16.45 ng/mL (Abnormal) Range: 0.00-4.00 14:28 PT (PROTHROMBIN TIME) Comments: Coumadin Dosage=5,5,5,7.5 Repeat. Took 7.5 on 04-27-12. ([facility]) (33528) 5. Dosage 7.5 Repeat mg (Normal) 4. Saturday Dosage 5.0 mg (Normal) 3. Saturday Dosage 5.0 mg (Normal) 2. Saturday Dosage 5.0 mg (Normal) 1. Saturday Dosage 7.5 mg (Normal) INR 2.17 (Normal) PT 22.7 s (Abnormal) Range: 10.4-12.4 14:28 Routine Venipuncture (68966) Draw Drawn (Normal) 13-May-2012 PSA (PROSTATE SPECIFIC Comments: A copy of this report will be faxed to: Bettie Boswell in this order include: PSA, Draw Charge[i]PSA allowed more than once a year due to being a Diagonistic PSA not a screening PSA 09:20 ANTIGEN) (07986) PSA 11.30 ng/mL (Abnormal) Range: 0.00-4.00 TSH (THYROID Comments: Items in this order include: TSH 16:40 STIMULATING HORMONE) (41250) TSH 1.36 uIU/ml (Normal) Range: 0.34-5.60 14:50 PT (PROTHROMBIN TIME) Comments: Items in this order include: Draw Charge[i], Basic Metabolic Panel, Hemoglobin A1C, Protime & INRLast Hbg A1C was ran 218 Days ago. Check by DL ([facility]) (22796) 5. Dosage Repeat mg (Normal) 4. Saturday [...] ran 218 Days ago. Check (HGB A1C) (20776) by DLplease draw enough blood so if [...] ran 218 Days ago. Check by DL (77496) Draw Drawn (Normal) DIGOXIN, DRUG ASSAY Comments: Items in this order include: CBC, Comprehensive Metabolic Panel, CKI, Digoxin, Draw Charge[i] 09:08 (83197) DIG 0.38 ng/mL (Abnormal) Range: 0.90-2.00 09:08 CK Comments: Items in this order include: CBC, Comprehensive Metabolic Panel, CKI, Digoxin, Draw Charge[i] CKI 143 U/L (Normal) Range: 39-308 09:08 CMP (85265) Comments: Items in this order include: CBC, [...] Metabolic Panel, CKI, Digoxin, Draw Charge[i] ONE! (31058) manual diff Not Indicated (Normal) mpv 6.84 [...] order include: Protime & INR, Draw Charge[i] (60309) Draw Drawn (Normal) 16:45 PT (PROTHROMBIN TIME) Comments: Items in this order include: Protime & INR, Draw Charge[i]Coumadin doasage=5,5,7.5 Repeat ([facility]) (00311) 7. Saturday Dosage 5.0 mg (Normal) 6. [...] order include: Draw Charge[i], PSA 11:11 ANTIGEN) (35456) PSA 6.92 ng/mL (Abnormal) Range: 0.00-4.00 11:11 Routine Venipuncture Comments: A copy of this report will be faxed to: Bettie Boswell in this order include: Draw Charge[i], PSA (75509) Draw Drawn (Normal) 17-Oct-2011 Routine Venipuncture 10:18 (01890) Draw Drawn (Normal) 10:18 TESTOSTERONE, FREE, Comments: Items in this order include: Protime & INR, Draw Charge[i], TESTOSTERONE, FREE, BIOAVAILABLE, AND TOTAL, LC/MS/ MSTesting performed at: [place], [address] [address], [place], [address], City Assessor: Michael Chávez [facility] TOTAL, LC/MS/MS ALBUMIN,SERUM 4.4 [...] and benefits counseling. 10:18 PT (PROTHROMBIN TIME) ([facility]) (42614) 7. Saturday Dosage 5.0 mg (Normal) 6. [...] Panel, Hemoglobin A1C, Draw Charge[i] (HGB A1C) (52540) A1C 6.1 % (Normal) Range: 4.6-6.2 13:29 [...] (Normal) Range: 135-145 13:29 DIGOXIN, DRUG ASSAY (88692) DIG 0.85 ng/mL (Abnormal) Range: 0.90-2.00 07-Aug-2011 TESTOSTERONE, FREE, Comments: Items in this order include: TESTOSTERONE, FREE, BIOAVAILABLE, AND TOTAL, LC/MS/MSTesting performed at: [employer] [place], [address] [address] , [place] , [address], [place] 12:53 WEAKLY BOUND AND TOTAL ratory Director: Michael Chávez MD.[facility] (36609) ALBUMIN,SERUM 4.4 g/dL (Normal) Range: 3.6-5.1 SEX [...] INR, Draw Charge[i]no change in coumadin dose ([facility]) (92546) 7. Saturday Dosage 7.5 mg (Normal) 6. [...] Metabolic Panel, Protime & INR, Draw Charge[i] ([facility]) (12939) 7. Saturday Dosage 5.0 mg (Normal) 5. [...] Boswell in this order include: PSA ANTIGEN) (84295) PSA 5.95 ng/mL (Abnormal) Range: 0.00-4.00 CBC-MALE- ORDER THIS Comments: Items in this order include : Hemoglobin A1C, Comprehensive Metabolic Panel, CBC 11:56 ONE! (79825) manual diff Not Indicated (Normal) mpv 7.65 [...] 6.24 10*3/uL (Normal) Range: 4.50-10.50 11:56 CMP (80208) Comments: Items in this order include: Hemoglobin [...] this order include: Digoxin, Draw Charge[i] 15:17 (18149) DIG 1.18 ng/mL (Normal) Range: 0.90-2.00 HEMOGLOBIN GLYCLATED Comments: Items in this order include: Hemoglobin A1C, Comprehensive Metabolic Panel, CBC 11:56 (HGB A1C) (09542) A1C 6.6 % (Abnormal) Range: 4.6-6.2 Comments: Consistent with diabetes. 13:48 PT (PROTHROMBIN TIME) Comments: change to coumadin 5mg x 2 day then 7.5mg x1 repeat the cycle; Items in this order include: Protime & INR, Draw Charge[i]cyclechange to coumadin 5mg x 2 day then 7.5mg x1 repeat the ([facility]) (38415) 6. Joao Dosage 7.5 mg (Normal) 7. [...] & INR, PSA, Draw Charge[i] 09:43 ANTIGEN) (25122) PSA 5.84 ng/mL (Abnormal) Range: 0.00-4.00 09:43 PT (PROTHROMBIN TIME) Comments: no change in coumadin; no change in coumadin ([facility]) (32332) 7. Saturday Dosage 7.5 mg (Normal) 6. Saturday Dosage 5.0 mg (Normal) 5. Dosage 7.5 mg (Normal) 4. Saturday Dosage 5.0 mg (Normal) 3. Saturday Dosage 5.0 mg (Normal) 1. Saturday Dosage 5.0 mg (Normal) 2. Saturday Dosage 7.5 mg (Normal) INR 3.45 (Normal) PT 32.9 s (Abnormal) Range: 10.4-12.4 23-Nov-2010 PT (PROTHROMBIN TIME) 10:03 ([facility]) (53157) 6. Saturday Dosage 7.5 mg (Normal) 7. Saturday Dosage 5 mg (Normal) 1. Saturday Dosage 5 mg (Normal) 2. Saturday Dosage 7.5 mg (Normal) 3. Saturday Dosage 5 mg (Normal) 4. Saturday Dosage 7.5 mg (Normal) 5. Dosage 5 mg (Normal) INR 2.16 (Normal) PT 21.0 s (Abnormal) Range: 10.4-12.4 19-Oct-2010 PT (PROTHROMBIN TIME) 15:16 ([facility]) (45326) 6. Saturday Dosage 5 mg (Normal) 7. Saturday Dosage 7.5 mg (Normal) 3. Saturday Dosage 7.5 mg (Normal) 4. Saturday Dosage 5 mg (Normal) 5. Dosage 7.5 mg (Normal) 1. Saturday Dosage 7.5 mg (Normal) 2. Saturday Dosage 5 mg (Normal) INR 2.13 (Normal) PT 20.7 s (Abnormal) Range: 10.4-12.4 12-Sep-2010 PT (PROTHROMBIN TIME) 11:03 ([facility]) (81002) INR 2.57 (Normal) PT (PROTHROMBIN TIME) 24.8 s (Abnormal) Range: 11.5-13.5 22-Aug-2010 PT (PROTHROMBIN TIME) 13:41 ([facility]) (47119) 09-Aug-2010 PSA, MEDICARE (G0103) Comments: please fax to dr hema boswell 09:54 PSA (Medicare) 4.83 ng/mL (Abnormal) Range: 0 - 4 09:34 PT (PROTHROMBIN TIME) ([facility]) (24932) INR 2.68 (Normal) PT (PROTHROMBIN TIME) 25.8 s (Abnormal) Range: 11.5-13.5 27-Jun-2010 PT (PROTHROMBIN TIME) 08:38 ([facility]) (36453) 26-Jun-2010 PT (PROTHROMBIN TIME) 16:21 ([facility]) (95004) INR 1.89 (Normal) PT (PROTHROMBIN TIME) 18.4 s (Abnormal) Range: 11.5-13.5 Treatment Plan Routine Venipuncture (00496); Ordered: 08/10/2015; Note: Verbal order from Dr. James RomeroPT (PROTHROMBIN TIME) ([facility]) (36119); Ordered: 08/10/2015; Note: Verbal order from Dr. James RomeroURIC ACID BLOOD (23177); Ordered: 2014HEMOGLOBIN GLYCLATED (HGB A1C) (15643); Ordered: 08/10/2015CK (42048); Ordered: 08/10/2015CMP (54723); Ordered: 08/10/2015CBC MALE- ORDER THIS ONE! 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 He said he is having quite a bit of pain with the nodule and some occasional drainage. Seems to be recurrent for him. 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 The course has been increasing. The finger kinjal l problems are described as severe. Note for "Finger nail problems": He continues with his usual medications.[facility] Lab entry only - Encounter for long-term (current) use of anticoagulants ( V58.61 | Z79.01) On 07-Jul-2015 [facility] 16:55 to 16:56 Office Visit - Benign essential hypertension (401.1 | I10), Health education ( V65.40 | Z71.9), Bilateral knee pain (719.46 | M25.561, M25.562), Diabetes mellitus (250.00 | E11.9), Fibrillation, atrial ( to 427.31), Encounter for long-term (current) use of anticoagulants (V58.61 | Z79.01) Encounter Reason: Hypertension - Note for "Hypertension": Here for a 6 month follow up with Dr. Nneka M.D. states doing fine except for my bilateral knees pain , they hurt worse to bend . also unable to walk up the stairs and I have to crawl. [facility] Historical Summary On [facility] 12:33 to 12:36 Lab entry only - Encounter for long-term (current) use of anticoagulants ( V58.61 | Z79.01) On [facility] 17:37 to 17:39 Lab entry only - Elevated PSA (790.93) On [facility] 10:10 to 10:11 Lab entry only - Encounter for long-term (current) use of anticoagulants ( V58.61 | Z79.01), Encounter for long-term (current) use of anticoagulants ( V58.61 | Z79.01) On 14-Jan-2015 [facility] 14:52 to 14:53 Lab entry only - Encounter for long-term (current) use of anticoagulants ( V58.61 | Z79.01), Encounter for long-term (current) use of anticoagulants ( V58.61 | Z79.01) On 29-Nov-2014 [facility] 12:31 to 15:09 Medication Entry - Diabetes mellitus (250.00 | E11.9) On 12-Nov-2014 [facility] 11:46 to 11:53 Medication Entry - Cellulitis, leg (682.6 | L03.119) On 11-Nov-2014 [facility] 09:48 to 10:00 Office Visit [...] "Transition into care": He feels things are improved.[facility] Historical Summary On 27-Oct-2014 [facility] 15:03 to 15:08 Lab entry only - Fibrillation, atrial (427.31), Encounter for long-term ( current) use of anticoagulants (V58.61 | Z79.01) On 18-Oct-2014 [facility] 17:08 to 17:09 Medication Entry - Gout (274.9 | M10.9) On 12-Oct-2014 [facility] 16:17 to 16:22 Lab entry only - Encounter for long-term (current) use of anticoagulants ( V58.61 | Z79.01) On 21-Sep-2014 [facility] 15:31 to 15:33 Radiology Visit - Carotid stenosis (433.10 | I65.29) On 14-Sep-2014 [facility] 09:33 to 09:36 Lab entry only - Encounter for long-term (current) use of anticoagulants ( V58.61 | Z79.01) On 24-Aug-2014 [facility] 16:31 to 16:34 Office Visit - Health education (V65.40 | Z71.9), Prevnar (PCV13)FOR MEDICARE USE ONLY Pneumovax injection (V03.82) 21253, Encounter for long-term ( current) use of anticoagulants (V58.61 | Z79.01), On 12-Aug-2014 brillation, atrial (427.31), Elevated PSA (790.93), Diabetes mellitus (250.00 | E11.9), Obstructive sleep apnea (327.23), 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 He mentions the "discoloration" of ankles.[facility] Historical Summary On 11-Aug-2014 [facility] 16:16 to 16:19 Lab entry only - Fibrillation, atrial (427.31), Encounter for long-term ( current) use of anticoagulants (V58.61 | Z79.01) On 06-Aug-2014 [facility] 16:41 to 16:43 Medication Entry - Benign essential hypertension (401.1 | I10) On 21-Jun-2014 [facility] 11:12 to 11:14 Lab entry only - Encounter for long-term (current) use of anticoagulants ( V58.61 | Z79.01) On 03-Jun-2014 [facility] 16:13 to 16:15 Lab entry only - Encounter for long-term (current) use of anticoagulants ( V58.61 | Z79.01) On [facility] 13:22 to 13:23 Lab entry only - Elevated PSA (790.93), Encounter for long-term (current) use of anticoagulants (V58.61 | Z79.01) On [facility] 14:27 to 14:28 Office Visit [...] thing in the morning and on stairs. [facility] Historical Summary On 28-Dec-2013 [facility] 12:26 to 12:29 Medication Entry - Encounter for long-term (current) use of anticoagulants ( V58.61 | Z79.01), Diabetes mellitus (250.00 | E11.9), Fibrillation, atrial ( 427.31) On 03-Nov-2013 [facility] 09:01 to 11:53 Medication Entry - Fibrillation, atrial (427.31), Diabetes mellitus (250.00 | E11.9) On 30-Oct-2013 [facility] 15:55 to 16:00 Lab entry only - Encounter for long-term (current) use of anticoagulants ( V58.61 | Z79.01) On 27-Oct-2013 [facility] 17:57 to 17:59 Office Visit [...] M.D. after being in the hospital at [facility] on 10/16/13 & discharged on 10/17/13 dx jasmeet diaz, inr was done prior to visit.) . Note for "Transition into care": He passed a kidney stone a week ago.[facility] Historical Summary On 23-Oct-2013 [facility] 14:42 to 14:45 Lab entry only - Encounter for long-term (current) use of anticoagulants ( V58.61 | Z79.01) On 20-Oct-2013 [facility] 16:31 to 16:33 Lab entry only - Encounter for long-term (current) use of anticoagulants ( V58.61 | Z79.01) On 16-Sep-2013 [facility] 10:14 to 10:15 Lab entry only - Elevated PSA (790.93) On 15-Sep-2013 [facility] 11:11 to 11:12 Lab entry only - Encounter for long-term (current) use of anticoagulants ( V58.61 | Z79.01) On 07-Aug-2013 [facility] 14:32 to 14:33 Lab entry only - Benign essential hypertension (401.1 | I10), Diabetes mellitus (250.00 | E11.9) On 07-Aug-2013 [facility] 11:18 to 11:19 Lab entry only - Encounter for long-term (current) use of anticoagulants ( V58.61 | Z79.01) On 01-May-2013 [facility] 10:33 to 10:38 Office Visit [...] He did miss some meds while he traveled.[facility] Historical Summary On 29-Apr-2013 [facility] 11:46 to 11:49 Lab entry only - Encounter for long-term (current) use of anticoagulants ( V58.61 | Z79.01) On [facility] 16:39 to 16:42 Lab entry only - Encounter for long-term (current) use of anticoagulants ( V58.61 | Z79.01) On [facility] 19:40 to 19:42 Lab entry only - Elevated PSA (790.93) On [facility] 12:03 to 12:07 Office Visit [...] for "Cough": He has not had an antibiotic.[facility] Lab entry only - Encounter for long-term (current) use of anticoagulants ( V58.61 | Z79.01) On 16-Dec-2012 [facility] 18:21 to 18:23 Lab entry only - Encounter for long-term (current) use of anticoagulants ( V58.61 | Z79.01) On 27-Nov-2012 [facility] 16:52 to 16:53 Lab entry only - Encounter for long-term (current) use of anticoagulants ( V58.61) On 26-Nov-2012 [facility] 15:04 to 15:05 Office Visit [...] first thing in the morning and on stairs.[facility] Historical Summary On 29-Oct-2012 [facility] 16:15 to 16:17 Lab entry only - Encounter for long-term (current) use of anticoagulants ( V58.61) On 15-Oct-2012 [facility] 09:51 to 09:57 Lab entry only - Encounter for long-term (current) use of anticoagulants ( V58.61), Elevated PSA (790.93) On 14-Oct-2012 [facility] 10:25 to 10:26 Lab entry only - Encounter for long-term (current) use of anticoagulants ( V58.61) On 12-Sep-2012 [facility] 13:44 to 13:45 Medication Entry - Edema (782.3), Fibrillation, atrial (427.31) On 20-Aug-2012 [facility] 11:10 to 11:12 Medication Entry - Fibrillation, atrial (427.31), Edema (782.3) On 19-Aug-2012 [facility] 17:29 to 18:11 Medication Entry - Encounter for long-term (current) use of anticoagulants ( V58.61), Fibrillation, atrial (427.31), Diabetes mellitus (250.00) On 2011 [facility] 17:44 to 17:53 Office Visit - 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), Inflamed seborrheic keratosis (702.11), Hyperglycemia (790.29), Encounter for long-term (current) use of anticoagulants (V58.61), Fibrillation, atrial (427.31) On 01-Aug-2012 Encounter Reason: Follow up for chronic condition - The patient feels well with minor complaints (here today for a 3 month follow up with Dr. Romero ) .[facility] 09:34 to 10:39 Medication Entry - Encounter for long-term (current) use of anticoagulants ( V58.61) On 31-Jul-2012 [facility] 18:21 to 18:22 Historical Summary On 31-Jul-2012 [facility] 11:40 to 11:42 Lab entry only - Encounter for long-term (current) use of anticoagulants ( V58.61) On 23-Jun-2012 [facility] 18:47 to 18:52 Lab entry only - Elevated PSA (790.93), Encounter for long-term (current) use of anticoagulants (V58.61) On 23-Jun-2012 [facility] 15:48 to 15:53 Office Visit - Adjustment disorder with depressed mood (309.0), Encounter for long-term (current) use of anticoagulants (V58.61), Elevated PSA (790.93) On Encounter Reason: Follow up for chronic condition - The patient feels well with minor complaints (here for a 6 week follow up visit do to a new medication but did not start the medication).[facility] 11:19 to 13: 39 Historical Summary On 30-Apr-2012 [facility] 11:50 to 11:52 Lab entry only - Encounter for long-term (current) use of anticoagulants ( V58.61) On 28-Apr-2012 [facility] 17:23 to 17:26 Lab entry only - Elevated PSA (790.93), Encounter for long-term (current) use of anticoagulants (V58.61) On 28-Apr-2012 [facility] 14:19 to 14:22 Office Visit [...] , had lab done prior to appt today).[facility] Lab entry only - Edema (782.3), Hyperglycemia (790.29), Encounter for long- term (current) use of anticoagulants (V58.61) On [facility] 11:06 to 11:14 Lab entry only - Elevated PSA (790.93), Fibrillation, atrial (427.31), Edema ( 782.3) On [facility] 09:02 to 09:05 Lab entry only - Encounter for long-term (current) use of anticoagulants ( V58.61) On [facility] 16:44 to 16:45 Medication Entry On 26-Oct-2011 [facility] 13:30 to 13:32 Lab entry only - Elevated PSA (790.93) On 23-Oct-2011 [facility] 11:01 to 11:04 Lab entry only - Encounter for long-term (current) use of anticoagulants ( V58.61), Low testosterone (257.2) On 17-Oct-2011 [facility] 10:15 to 10:17 Medication Entry - Fibrillation, atrial (427.31) On 04-Oct-2011 [facility] 09:26 to 09:38 Medication Entry - Fibrillation, atrial (427.31), Edema (782.3), Encounter for long-term (current) use of anticoagulants (V58.61), Benign prostatic hypertrophy without lower urinary tract symptoms (LUTS) (600.00) On 02-Oct-2011 [facility] 18:56 to 19:02 Medication Entry - Encounter for long-term (current) use of anticoagulants ( V58.61), Fibrillation, atrial (427.31), Edema (782.3) On 26-Sep-2011 [facility] 11:06 to 11:11 Medication Entry - Fibrillation, atrial (427.31), Encounter for long-term ( current) use of anticoagulants (V58.61) On 24-Sep-2011 [facility] 10:41 to 10:49 Lab entry only - Low testosterone (257.2) On 10-Aug-2011 [facility] 13:03 to 13:05 Lab entry only - Hyperglycemia (790.29), Encounter for long-term (current) use of anticoagulants (V58.61), Fibrillation, atrial (427.31) On 08-Aug-2011 [facility] 13:27 to 13:29 Office Visit [...] he 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." [facility] Historical Summary On 06-Aug-2011 [facility] 12:22 to 12:24 Medication Entry - Fibrillation, atrial (427.31) On 05-Jun-2011 [facility] 08:54 to 08:59 Lab entry only - Encounter for long-term (current) use of anticoagulants ( V58.61) On 15-May-2011 [facility] 18:48 to 18:50 Office Visit [...] up is diabetes, hypertension, cardiovascular disorder and other.[facility] Medication Entry - Benign prostatic hypertrophy without lower urinary tract symptoms (LUTS) (600.00) On 19-Apr-2011 [facility] 08:49 to 08:51 Lab entry only - Benign prostatic hypertrophy without lower urinary tract symptoms (LUTS) (600.00) On 10-Apr-2011 [facility] 15:15 to 15:19 Office Visit [...] on seeing dr. boswell the middle of ). [facility] Historical Summary On [facility] 16:05 to 16:18 Lab entry only - Encounter for long-term (current) use of anticoagulants ( V58.61) On [facility] 17:34 to 17:36 Lab entry only - Encounter for long-term (current) use of anticoagulants ( V58.61), Elevated PSA (790.93) On [facility] 09:42 to 09:43 Lab entry only - Encounter for long-term (current) use of anticoagulants ( V58.61) On 24-Nov-2010 [facility] 08:55 to 08:57 Lab entry only - Encounter for long-term (current) use of anticoagulants ( V58.61) On 20-Oct-2010 [facility] 14:42 to 14:46 Historical Summary - Encounter for long-term (current) use of anticoagulants ( V58.61) On 13-Sep-2010 [facility] 10:53 to 10:59 Historical Summary 12-Sep-2010 to 13-Sep-2010 [facility] Lab entry only - Encounter for long-term (current) use of anticoagulants ( V58.61) On 14-Aug-2010 [facility] 17:44 to 17:49 Historical Summary - Elevated PSA (790.93) 09-Aug-2010 to 15-Aug-2010 [facility] Lab entry only - Encounter for long-term (current) use of anticoagulants ( V58.61) 27-Jun-2010 to 28-Jun-2010 [facility] Lab entry only - Encounter for long-term (current) use of anticoagulants ( V58.61) On 26-Jun-2010 [facility] 16:21 to 22:23 Insurance Vijay Yuan; gwen guarantorMedicare [employer]Reserve [employer] [facility] Servicesate Farm InsuranceCVS/[employer]
--- OUTSIDE RECORDS SUMMARY | 2017-10-22 17:39 | External Medical Summary | Continuity of Care Document ---
:1940 Author Organization [facility], [place] Address [address] [place] [address] Phone Care Team Providers Name Role Phone James Romero MD Primary Care Provider James Romero MD Unavailable Hema Boswell Consulting Provider Jorje Armstrong MD Unavailable Unavailable Unavailable Problems Name Dates Details Adjustment disorder with depressed mood (309.0, F43.21) Status: Active Ankle pain, right (719.47, M25.571) Status: Active Benign essential hypertension (401.1, I10) Status: Active Benign prostatic hypertrophy with nocturia (600.01, N40.1) Status: Active Benign prostatic hypertrophy with urinary [...] use of anticoagulants (V58.61, Z79.01) Status: Active Eyelid cyst, right (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.84, H02.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) Status: Active Foot pain, left (729.5, M79.672) [...] 4 Ordered:03-Nov-2013 Nohelia Combs Start 03-Nov-2013 Active ELIQUIS, 5MG (Oral Tablet) 1 (one) Tablet two times daily for 30 days Quantity: 60 {Tablet} Refills: 10 Ordered:27-Oct-2015 James Romero MD Start 27-Oct-2015 Active Comments:start after stopping Coumadin as instructed FLOMAX, 0.4MG (Oral Capsule) 1 Capsule daily [...] 4 Ordered:03-Nov-2013 Nohelia Combs Start 03-Nov-2013 Active WARFARIN SODIUM, 5MG (Oral Tablet) one [...] times daily (500 MG) Inactive Comments:started on 2/15/14 after being dismissed from [facility] for kidney stone by gale CITALOPRAM HYDROBROMIDE, [...] {Tablet} Refills: 4 Ordered:30-Oct-2012 Dayo Combsrickey Start 24-Sep-2011 End 30-Oct-2012 Inactive NORCO, 5-325MG (Oral Tablet) 1 take one tablet every four hours as needed for pain (5-325 MG) Inactive Comments:Medication taken as needed. 10/17/13 dx kidney stone from being discharged from [facility] PROMETHAZINE-DM, 6.25-15MG/5ML (Oral Syrup) 1-2 tsp Syrup Syrup every four hours, as needed for 10 days Quantity: 4 {Syrup} Refills: 1 Ordered:27-Oct-2015 Arielle Karimi Start 02-Jan-2013 End 27-Oct-2015 Inactive Comments:Medication taken as needed. testrone cream 10% apply 0.5ml daily Inactive TRIAMTERENE-HCTZ, 37.5-25MG (Oral Capsule) PRN (37.5-25 MG) Inactive TRUEPLUS LANCETS 28G (Miscellaneous) 1 (one) [...] Significant Medical History. Procedures Procedure Dates Details VENIPUNCTURE: BL DRAW < 3 YRS Ordered:28-Oct-2015 FEM/JUGULAR (06060) How to access health information Completed:27-Jul-2015 online Skin Conditions Completed:27-Jul-2015 Follow up in 2 weeks Ordered:27-Jul-2015 HIGH DOSE QUADRIVALENT INFLUENZA Ordered:25-Jul-2015 VACCINE (04372) ADMINISTRATION OF INFLUENZA VIRUS Ordered:25-Jul-2015 VACCINE (G0008) Follow up in 3 months Ordered:25-Jul-2015 Follow up in 4 months Ordered: X-RAY EXAM OF KNEE, 1 OR 2 VIEWS Completed: Comments: right (44482) X-RAY EXAM OF BOTH KNEES, Completed: STANDING (35152) How to access health information Completed: online Follow up - Keep appt as scheduled Ordered:28-Oct-2014 CAROTID BILATERAL US (24367) Completed:14-Sep-2014 Comments: Verbal order from Dr. James Romero Follow up in 6 months Ordered:12-Aug-2014 PREVNAR 13 VALENT PNEUMOCOCCAL Completed:12-Aug-2014 VACCINE (37049) ADMINISTRATION OF PNEUMOCOCCAL Ordered:12-Aug-2014 CONJUGATE VACCINE (G0009) How to access health information Completed:12-Aug-2014 online Follow up in 6 months Ordered: Follow up in 2 months Ordered:26-Oct-2013 ADMIN INFLUENZA VIRUS VAC: FLU VACC Completed:26-Oct-2013 PRSV FREE INC ANTIG ([id number]) ADMINISTRATION OF INFLUENZA VIRUS Ordered:26-Oct-2013 VACCINE (G0008) Follow up in 6 months Ordered:30-Apr-2013 Follow up - Keep appt as scheduled Ordered:02-Jan-2013 Follow up in 6 months Ordered:30-Oct-2012 Follow up in 3 months Ordered:01-Aug-2012 Follow up in 3 months Ordered:01-May-2012 Follow up in 6 weeks Ordered: ADMINISTRATION OF INFLUENZA VIRUS Ordered:14-May-2011 VACCINE (G0008) FLU VACC PRSV FREE INC ANTIG Completed:14-May-2011 (22958) Follow up in 2 months Ordered:14-May-2011 Follow up in 2 months Ordered: Annual Eye Exam Completed:22-Nov-2008 Colonoscopy, Screening Completed: Colonoscopy, Screening Completed:06-Oct-2014 Flu Vaccine Completed:26-Oct-2013 Flu Vaccine Completed:06-Jun-2012 Comments: hd Flu Vaccine Completed:14-May-2011 Comments: high dose Flu Vaccine Completed:25-Jul-2015 Pneumovax Completed:2008 prevnar 13 Completed:12-Aug-2014 PSA Completed:10-Apr-2011 Comments: (5.95) PSA Completed:28-Apr-2012 Comments: (16.45) PSA Completed:08-Sep-2015 Comments: (6.00) PSA Completed:23-Jun-2012 Comments: (8.05) PSA Completed:14-Oct-2012 Comments: (8.11) PSA Completed: Comments: (5.60) PSA Completed:15-Sep-2013 Comments: (5.40) PSA Completed: Comments: (6.15) PSA Completed:24-Aug-2014 Comments: (7.11) PSA Completed: Comments: (6.55) Immunization Name Dates Details Fluzone Administered on:14-May-2011 Comments: Site: Deltoid (Left); high dose Lot #: [id number] Influenza, preserv. free, enhanced immunogncty, IM Administered on:2013 Comments: Site: Deltoid (Left) Lot #: [id number] Pneumococcal conjugate vaccine, 13 valent, IM Administered on:12-Aug-2014 Comments: Site: Deltoid (Left) Lot #: [id number] Social History Name Dates Details Tobacco use: Former smoker. Status: Active Current tobacco use: Former smoker. Status: Inactive Vital Signs Date Test Result Details 27-Oct-2015 09:48 Temperature 98.5 f Comments: Method: Temporal Pulse 74 /min Comments: Pattern: Regular BP Systolic 130 mm[Hg] Comments: Patient Position: Sitting; Cuff Location: Left Arm; Cuff Size: Standard BP Diastolic 78 mm[Hg] Comments: Patient Position: Sitting; Cuff Location: Left Arm; Cuff Size: Standard Weight 233 lb Height 73 in Body Mass Index Calculated 30.74 kg/m2 Body Surface Area Calculated 2.3 m2 25-Jul-2015 14:42 Temperature 98.4 f Comments: Method: [...] Comments: The left neck Final 10:36 SINGLE (22462) lesion was removed and also the left [...] not sent to pathology. 10:35 PUNCH BIOPSY (62164) Comments: After Final FIRST BIOPSY cleansing the left forearm with Hibiclens solution x3, the area was anesthetized with 1 cc 1% lidocaine and a 2 mm punch was used and elevated with sterile scissors and sent to pathology. Silver nitrate stick was for cautery. 25-Oct-2015 Draw Charge[i] 11:21 Draw Drawn (Normal) 11:21 PT (PROTHROMBIN TIME) Comments: Items in this order include: Protime & INRDoes patient have a artifical heart valve? No [place] ([address]83) 9. Saturday Dosage Repeat mg (Normal) 8. Joao Dosage 5.0 mg (Normal) 7. Dosage 7.5 mg (Normal) 6. Saturday Dosage 7.5 mg (Normal) 5. Saturday Dosage 5.0 mg (Normal) 4. Saturday Dosage 7.5 mg (Normal) 3. Saturday Dosage 7.5 mg (Normal) INR 3.24 (Normal) PT 36.0 s (Abnormal) Range: 9.3-11.7 08-Sep-2015 PSA (PROSTATE SPECIFIC Comments: Items in this order include: Draw Charge[i], Protime & INR, PSA 16:21 ANTIGEN) ([id number]) PSA 6.00 ng/mL (Abnormal) Range: 0.00-4.00 16:21 PT (PROTHROMBIN TIME) Comments: Does patient have a artifical heart valve? No [place] (17740) 8. Saturday Dosage 5.0 mg (Normal) 9. Saturday Dosage 7.5 mg (Normal) 6. Saturday Dosage 7.5 mg (Normal) 7. Dosage 7.5 mg (Normal) 5. Saturday Dosage 5.0 mg (Normal) 4. Saturday Dosage 7.5 mg (Normal) 3. Saturday Dosage 7.5 mg (Normal) INR 2.21 (Normal) PT 24.2 s (Abnormal) Range: 9.3-11.7 16:21 Routine Venipuncture (85510) Draw Drawn (Normal) 25-Oct-2015 URIC ACID BLOOD (72617) Comments: Items in this order include : CBC, Comprehensive Metabolic Panel, CKI, Hemoglobin A1C, Uric Acid, Draw Charge[i] 11:21 Uric Acid 5.5 mg/dL (Normal) Range: 3.5-7.2 11:21 HEMOGLOBIN GLYCLATED (HGB A1C) (03358) A1C 6.2 % (Normal) Range: 4.6-6.2 Comments: High risk of diabetes. 11:21 CK (79418) Comments: Items in this order include: CBC, Comprehensive Metabolic Panel, CKI, Hemoglobin A1C, Uric Acid, Draw Charge[i] CKI 288 U/L (Normal) Range: 39-308 11:21 CMP (20243) Comments: Items in this order include: CBC, Comprehensive Metabolic Panel, CKI, Hemoglobin A1C, Uric Acid, Draw Charge[i] ALTI 33 U/L (Normal) Range: 12-78 ALP 77 U/L (Normal) Range: 50-136 AST 28 [iU]/L (Normal) Range: 10-42 a/g ratio 1.19 (Normal) Range: 1.00-2.10 globulin 3.2 g/dL (Normal) Range: 2.2-3.9 ALB 3.8 g/dL (Normal) Range: 3.4-5.0 TP 7.0 g/dL (Normal) Range: 6.0-8.3 T.ALVINO 0.54 mg/dL (Normal) Range: 0.20-1.00 GLU 95 mg/dL (Normal) Range: 70-110 CA 8.9 mg/dL (Normal) Range: 8.4-10.2 eGFR 56.5 mL/min/1.73m2 Range: >60.0 (Abnormal) CREAT 1.3 mg/dL (Normal) Range: 0.6-1.3 OSMO 281 (Normal) Range: 275-295 BUN 22 mg/dL (Abnormal) Range: 7-18 AGAP 10.80 mmol/L (Normal) Range: 10.00-20.00 CO2 30.5 mmol/L (Normal) Range: 21.0-32.0 CL 102 mmol/L (Normal) Range: 98-107 K 4.3 mmol/L (Normal) Range: 3.5-5.0 NA 139 mmol/L (Normal) Range: 135-145 11:21 CBC MALE- ORDER THIS ONE! (60113) manual diff Not Indicated (Normal) mpv 9.80 fL (Normal) Range: 0.00-99.90 PLT 205.0 10*3/uL (Normal) Range: 150.0-450.0 RDW 14.3 % (Normal) Range: 11.5-14.5 MCHC 33.5 g/dL (Normal) Range: 31.0-36.0 MCH 30.9 pg (Normal) Range: 27.0-31.2 MCV 92.2 fL (Normal) Range: 80.0-97.0 HCT 40.0 % (Normal) Range: 39.0-54.0 HGB 13.40 g/dL (Normal) Range: 13.00-17.00 RBC 4.34 M/uL (Abnormal) Range: 4.60-6.20 Baso% 0.400 % (Normal) Range: 0.000-1.000 eos% 3.80 % (Abnormal) Range: 0.00-3.00 mono% 8.20 % (Normal) Range: 0.00-9.00 LYM% 20.30 % (Normal) Range: 20.00-40.00 nirmal% 67.30 % (Normal) Range: 55.00-75.00 Baso 0.030 10*3/uL (Normal) Range: 0.000-0.100 eos 0.290 10*3/uL (Normal) Range: 0.000-4.000 mono 0.62 10*3/uL (Normal) Range: 0.00-0.70 LYMPHS 1.54 10*3/uL (Normal) Range: 0.90-4.20 nirmal 5.09 10*3/uL (Normal) Range: 2.50-7.80 wbc 7.57 10*3/uL (Normal) Range: 4.50-10.50 06-Jul-2015 PT (PROTHROMBIN TIME) Comments: Items in this order include: Draw Charge[i], Protime & INRDoes patient have a artifical heart valve? No 15:06 [place] (02085) 9. Saturday Dosage 7.5 mg (Normal) 8. [...] order include: Draw Charge[i], Protime & INR (72970) Draw Drawn (Normal) [facility] (51526) Comments: Items in this order include: Basic [...] include: A COPY TO [kyung], PSA ANTIGEN) (75518) PSA 6.55 ng/mL (Abnormal) Range: 0.00-4.00 09:[address] Boswell Comments: A copy of this report will be faxed to: Bettie Boswell in this order include: A COPY TO [kyung], PSA Ordering Doctor . (Normal) 09:15 PT (PROTHROMBIN TIME) Comments: Items in this order include: Draw Charge[i], Protime & INRDoes patient have a artifical heart valve? No [place] (85223) 8. Saturday Dosage 7.5 mg (Normal) 9. [...] order include: Draw Charge[i], Protime & INR (75815) Draw Drawn (Normal) 14-Jan-2015 PT (PROTHROMBIN TIME) Comments: Items in this order include: Draw Charge[i], Protime & INRDoes patient have a artifical heart valve? No 09:28 ([facility] (37409) 9. Saturday Dosage 5.0 mg (Normal) 7. [...] order include: Draw Charge[i], Protime & INR (45532) Draw Drawn (Normal) 28-Oct-2014 PT (PROTHROMBIN TIME) Comments: Items in this order include: Draw Charge[i], Protime & INRDoes patient have a artifical heart valve? No 10:48 ([facility] (01211) 9. Saturday Dosage 7.5 mg (Normal) 8. [...] order include: Draw Charge[i], Protime & INR (43421) Draw Drawn (Normal) 29-Nov-2014 PT (PROTHROMBIN TIME) Comments: Items in this order include: Draw Charge[i], Protime & INRDoes patient have a artifical heart valve? No 10:28 ([facility] (41267) 9. Saturday Dosage 5.0 mg (Normal) 8. [...] order include: Draw Charge[i], Protime & INR (86961) Draw Drawn (Normal) 21-Sep-2014 PT (PROTHROMBIN TIME) Comments: Items in this order include: Draw Charge[i], Protime & INRLily patient have a artifical heart valve? No 10:08 ([facility] (94167) 9. Saturday Dosage 5.0 mg (Normal) 7. [...] order include: Draw Charge[i], Protime & INR (78524) Draw Drawn (Normal) 24-Aug-2014 Routine Venipuncture Comments: Items in this order include: Protime & INR, Draw Charge[i] 09:59 (21722) Draw Drawn (Normal) 09:59 PT (PROTHROMBIN TIME) Comments: Items in this order include: Protime & INR, Draw Charge[i]INR value > 3.0 given to Estella by Beny Buckley patient have a artifical heart valve? No [place] (80889) 9. Saturday Dosage 7.5 mg (Normal) 7. [...] Panel, Hemoglobin A1C, Urine Microalbumin, CBC ONE! (35502) manual diff Not Indicated (Normal) mpv 9.60 [...] Metabolic Panel, Hemoglobin A1C, Urine Microalbumin, CBC (56502) U A:C RATIO <30 mg/g Normal Range: <30 mg/g Normal (Normal) U CREAT 200 mg/dL (Normal) Range: 10-300 U ALB 80 mg/L (Abnormal) Range: 10 mg/L 09:59 HEMOGLOBIN GLYCLATED Comments: Items in this order include: Digoxin , PSA, Basic Metabolic Panel, Hemoglobin A1C, Urine Microalbumin, CBC (HGB A1C) (58130) A1C 5.9 % (Normal) Range: 4.6-6.2 Comments: Increased risk of diabetes. 09:59 [facility] [place]88533) Comments: Items in this order include: Digoxin, [...] Panel, Hemoglobin A1C, Urine Microalbumin, CBC ANTIGEN) (90058) PSA 7.11 ng/mL (Abnormal) Range: 0.00-4.00 09:59 DIGOXIN (96053) Comments: Items in this order include: Digoxin, PSA , Basic Metabolic Panel, Hemoglobin A1C, Urine Microalbumin, CBCTime of Last Dose? 08/23/2014 8:00 AMDosage? 0.25 DIG 0.36 ng/mL (Abnormal) Range: 0.90-2.00 05-Aug-2014 PT (PROTHROMBIN TIME) Comments: Items in this order include: Draw Charge[i], Protime & INRDoes patient have a artifical heart valve? No 10:48 ([facility] (78326) 8. Saturday Dosage 7.5 mg (Normal) 9. [...] order include: Draw Charge[i], Protime & INR (46252) Draw Drawn (Normal) 03-Jun-2014 PT (PROTHROMBIN TIME) Comments: Items in this order include: Draw Charge[i], Protime & INRDoes patient have a artifical heart valve? No 13:56 ([facility] (11963) 9. Saturday Dosage 7.5 mg (Normal) 8. [...] order include: Draw Charge[i], Protime & INR (40675) Draw Drawn (Normal) PT (PROTHROMBIN TIME) Comments: Items in this order include: Protime & INRDoes patient have a artifical heart valve? No 14:25 ([facility] (70368) 9. day Dosage 5.0 mg (Normal) 8. [...] this order include: Draw Charge[i], PSA ANTIGEN) (32301) PSA 6.15 ng/mL (Abnormal) Range: 0.00-4.00 14:25 Routine Venipuncture Comments: A copy of this report will be faxed to: Bettie Boswell in this order include: Draw Charge[i], PSA ([id number]) Draw Drawn (Normal) HEMOGLOBIN GLYCLATED Comments: Items in this order include: Hemoglobin A1C, Draw Charge[i], Comprehensive Metabolic Panel, Uric Acid 15:06 (HGB A1C) (35659) A1C 5.7 % (Normal) Range: 4.6-6.2 15:06 CMP (07146) Comments: Items in this order include: Hemoglobin [...] (Normal) Range: 135-145 15:06 URIC ACID BLOOD (31795) Comments: Items in this order include: Hemoglobin A1C, Draw Charge[i], Comprehensive Metabolic Panel, Uric Acid Uric Acid 8.0 mg/dL (Abnormal) Range: 3.6-7.7 15:06 Routine Venipuncture Comments: Items in this order include: Hemoglobin A1C, Draw Charge[i], Comprehensive Metabolic Panel, Uric Acid (67510) Draw Drawn (Normal) PT (PROTHROMBIN TIME) Comments: Items in this order include: Draw Charge[i], Protime & INRDoes patient have a artifical heart valve? No 14:27 ([facility] (07777) 8. Saturday Dosage 5.0 mg (Normal) 9. [...] order include: Draw Charge[i], Protime & INR (72454) Draw Drawn (Normal) 26-Oct-2013 Draw Charge[i] Comments: Items in this order include: Basic Metabolic Panel, Draw Charge[i] 17:08 Draw Drawn (Normal) 17:05 [facility] (15060) Comments: Items in this order include: Basic [...] patient have a artifical heart valve? No ([facility] (24018) 9. Saturday Dosage 5.0 mg (Normal) 7. [...] order include: Draw Charge[i], Protime & INR (48345) Draw Drawn (Normal) 15-Sep-2013 PSA (PROSTATE SPECIFIC Comments: A copy of this report will be faxed to: Bettie Boswell in this order include: A COPY TO [kyung] PSAPSA allowed more than once a year due to being a Diagonistic PSA not a screening PSA 11:05 ANTIGEN) (15735) PSA 5.40 ng/mL (Abnormal) Range: 0.00-4.00 11:05 [...] this order include: Comprehensive Metabolic Panel, Hemoglobin [id number] Hgb A1C was ran 99 Days ago. Check by MARGARITA 10:38 (HGB A1C) (09412) A1C 5.9 % (Normal) Range: 4.6-6.2 Comments: Increased risk of diabetes. 10:38 [facility] (09498) Comments: Items in this order include: Comprehensive Metabolic Panel, Hemoglobin [id number] Hgb A1C was ran 99 Days ago. [...] patient have a artifical heart valve? No ([facility] (15975) 9. Saturday Dosage 5.0 (cycle of 5,5,7.5 [...] order include: Draw Charge[i], Protime & INR (18264) Draw Drawn (Normal) 10:38 DIGOXIN (72683) Comments: Items in this order include: DigoxinTime of Last Dose? 08/06/2013 8:30 AMDosage? 0.25 mg daily DIG 0.48 ng/mL (Abnormal) Range: 0.90-2.00 30-Apr-2013 HEMOGLOBIN GLYCLATED Comments: Items in this order include: Comprehensive Metabolic Panel, CBC, Hemoglobin U2CRtkw Hgb A1C was ran 225 Days ago. Check by ms 11:58 (HGB A1C) (92581) A1C 6.1 % (Normal) Range: 4.6-6.2 11:58 CBC MALE- ORDER THIS Comments: Items in this order include: Comprehensive Metabolic Panel, CBC, Hemoglobin [id number] Hgb A1C was ran 225 Days ago. Check by ms ONE! (06582) manual diff Not Indicated (Normal) mpv 4.88 [...] 6.15 10*3/uL (Normal) Range: 4.50-10.50 11:58 CMP (56418) Comments: Items in this order include: Comprehensive Metabolic Panel, CBC, Hemoglobin D4BUqzd Hgb A1C was ran 225 Days ago. [...] patient have a artifical heart valve? No ([facility] (81826) 4. Saturday Dosage Repeat mg (Normal) 3. Saturday Dosage 7.5 mg (Normal) 2. Saturday Dosage 5.0 mg (Normal) 1. Saturday Dosage 5.0 mg (Normal) INR 2.60 (Normal) PT 26.8 s (Abnormal) Range: 10.4-12.4 -March-2013 PT (PROTHROMBIN TIME) Comments: Items in this order include: Draw Charge[i], Protime & INRDoes patient have a artifical heart valve? No 15:12 ([facility] (10444) 5. Dosage Repeat mg (Normal) 4. Saturday Dosage 5.0 mg (Normal) 3. Saturday Dosage 5.0 mg (Normal) 2. Saturday Dosage 7.5 mg (Normal) INR 2.31 (Normal) PT 24.0 s (Abnormal) Range: 10.4-12.4 15:12 Routine Venipuncture Comments: Items in this order include: Draw Charge[i], Protime & INR (54269) Draw Drawn (Normal) PSA (PROSTATE SPECIFIC Comments: A copy of this report will be faxed to: Bettie Boswell in this order include: PSA, Draw Charge[i]PSA allowed more than once a year due to being a Diagonistic PSA not a screening PSA 10:00 ANTIGEN) (76746) PSA 5.60 ng/mL (Abnormal) Range: 0.00-4.00 10:00 [...] patient have a artifical heart valve? No ([facility] (96163) 3. Saturday Dosage Repeat mg (Normal) 2. Saturday Dosage 7.5 mg (Normal) 1. Saturday Dosage 5.0 mg (Normal) INR 2.64 (Normal) PT 27.2 s (Abnormal) Range: 10.4-12.4 10:09 Routine Venipuncture Comments: Items in this order include: Draw Charge[i], Protime & INR (43279) Draw Drawn (Normal) 16-Dec-2012 PT (PROTHROMBIN TIME) Comments: Items in this order include: Draw Charge[i], Protime & INRDoes patient have a artifical heart valve? No 10:46 ([facility]) (25045) 4. Saturday Dosage Repeat mg (Normal) 3. Saturday Dosage 5.0 mg (Normal) 2. Saturday Dosage 7.5 mg (Normal) INR 2.13 (Normal) PT 22.2 s (Abnormal) Range: 10.4-12.4 10:46 Routine Venipuncture Comments: Items in this order include: Draw Charge[i], Protime & INR (08485) Draw Drawn (Normal) 26-Nov-2012 Routine Venipuncture Comments: Items in this order include: Protime & INR, Draw Charge[i] 15:05 (38986) Draw Drawn (Normal) 15:05 PT (PROTHROMBIN TIME) Comments: Items in this order include: Protime & INR, Draw Charge[i]Does patient have a artifical heart valve? No [place] (10739) 4. Saturday Dosage 5.0 Repeat mg (Normal) 3. Saturday Dosage 5.0 mg (Normal) 2. Saturday Dosage 7.5 mg (Normal) INR 1.34 (Normal) PT 14.4 s (Abnormal) Range: 10.4-12.4 30-Oct-2012 PT (PROTHROMBIN TIME) Comments: Items in this order include: Draw Charge[i], Protime & INRINR value > 3.0 given to BW by Froy Chávez patient have a artifical heart valve? No 10:38 ([facility] (27838) 7. Saturday Dosage 7.5 mg (Normal) 6. [...] order include: Draw Charge[i], Protime & INR (78624) Draw Drawn (Normal) 11:33 BMP Comments: Items [...] Dose? 10/29/2012 8:00 PMDosage? 0.25 mg Daily (35437) DIG 1.64 ng/mL (Normal) Range: 0.90-2.00 14-Oct-2012 PSA (PROSTATE SPECIFIC Comments: A copy of this report will be faxed to: Bettie Boswell in this order include: Draw Charge[i], Protime & INR, PSAPSA allowed more than once a year due to being a Diagonistic PSA not a screening PSA 10:25 ANTIGEN) (20924) PSA 8.11 ng/mL (Abnormal) Range: 0.00-4.00 10:25 PT (PROTHROMBIN TIME) Comments: PSA allowed more than once a year due to being a Diagonistic PSA not a screening PSACoumadin dosage=5,5,5,5,7.5 repeatDoes patient have a artifical heart valve? No ([facility] (76502) 7. Saturday Dosage 7.5 mg (Normal) 6. [...] a Diagonistic PSA not a screening PSA (53488) Draw Drawn (Normal) 12-Sep-2012 PT (PROTHROMBIN TIME) Comments: Items in this order include: Draw Charge[i], Protime & INRDoes patient have a artifical heart valve? No 09:16 ([facility] (54834) 6. Saturday Dosage Repeat mg (Normal) 5. Dosage 7.5 mg (Normal) 4. Saturday Dosage 5.0 mg (Normal) 3. Saturday Dosage 5.0 mg (Normal) 2. Saturday Dosage 5.0 mg (Normal) 1. Saturday Dosage 5.0 mg (Normal) INR 2.48 (Normal) PT 25.7 s (Abnormal) Range: 10.4-12.4 09:16 Routine Venipuncture Comments: Items in this order include: Draw Charge[i], Protime & INR (90672) Draw Drawn (Normal) 18-Aug-2012 PT (PROTHROMBIN TIME) Comments: Items in this order include: Protime & INRDolynn patient have a artifical heart valve? No 11:44 ([facility] (94228) 7. Saturday Dosage 5.0 mg (Normal) 6. [...] Days ago. Check by KB (HGB A1C) (37176) A1C 6.2 % (Normal) Range: 4.6-6.2 Comments: High risk of diabetes. 31-Jul-2012 PT (PROTHROMBIN TIME) Comments: Items in this order include: Draw Charge[i], Protime & INRINR value > 3.0 given to Estella by Beny Buckley patient have a artifical heart valve? No 13:32 ([facility] (98052) 7. day Dosage 5.0 mg (Normal) 6. [...] order include: Draw Charge[i], Protime & INR (99471) Draw Drawn (Normal) 23-Jun-2012 PSA (PROSTATE SPECIFIC Comments: A copy of this report will be faxed to: Bettie Boswell in this order include: Draw Charge[i], Protime & INR, PSAPSA allowed more than once a year due to being a Diagonistic PSA not a screening PSA 15:50 ANTIGEN) (77660) PSA 8.05 ng/mL (Abnormal) Range: 0.00-4.00 15:50 PT (PROTHROMBIN TIME) Comments: A copy of this report will be faxed to: Bettie Boswell in this order include: Draw Charge[i], Protime & INR , PSAPSA allowed more than once a year due to being a Diagonistic PSA not a screening ([facility] (71645) PSADoes patient have a artifical heart valve? [...] a Diagonistic PSA not a screening PSA (70386) Draw Drawn (Normal) 13-May-2012 Draw Charge[i] Comments: [...] results to dr. hema boswell 14:28 ANTIGEN) (69904) PSA 16.45 ng/mL (Abnormal) Range: 0.00-4.00 14:28 PT (PROTHROMBIN TIME) Comments: Coumadin Dosage=5,5,5,7.5 Repeat. Took 7.5 on 04-27-12. ([facility]) (98948) 5. Dosage 7.5 Repeat mg (Normal) 4. Saturday Dosage 5.0 mg (Normal) 3. Saturday Dosage 5.0 mg (Normal) 2. Saturday Dosage 5.0 mg (Normal) 1. Saturday Dosage 7.5 mg (Normal) INR 2.17 (Normal) PT 22.7 s (Abnormal) Range: 10.4-12.4 14:28 Routine Venipuncture (94714) Draw Drawn (Normal) 13-May-2012 PSA (PROSTATE SPECIFIC Comments: A copy of this report will be faxed to: Bettie Boswell in this order include: PSA, Draw Charge[i]PSA allowed more than once a year due to being a Diagonistic PSA not a screening PSA 09:20 ANTIGEN) (17257) PSA 11.30 ng/mL (Abnormal) Range: 0.00-4.00 TSH (THYROID Comments: Items in this order include: TSH 16:40 STIMULATING HORMONE) ([id number]) TSH 1.36 uIU/ml (Normal) Range: 0.34-5.60 14:50 PT (PROTHROMBIN TIME) Comments: Items in this order include: Draw Charge[i], Basic Metabolic Panel, Hemoglobin A1C, Protime & INRLast Hbg A1C was ran 218 Days ago. Check by DL [place] ([id number]) 5. Dosage Repeat mg (Normal) 4. Saturday [...] ran 218 Days ago. Check (HGB A1C) (01698) by DLplease draw enough blood so if [...] ran 218 Days ago. Check by DL ([id number]) Draw Drawn (Normal) DIGOXIN, DRUG ASSAY Comments: Items in this order include: CBC, Comprehensive Metabolic Panel, CKI, Digoxin, Draw Charge[i] 09:08 (19704) DIG 0.38 ng/mL (Abnormal) Range: 0.90-2.00 09:08 CK Comments: Items in this order include: CBC, Comprehensive Metabolic Panel, CKI, Digoxin, Draw Charge[i] CKI 143 U/L (Normal) Range: 39-308 09:08 CMP ([id number]) Comments: Items in this order include: CBC, [...] Metabolic Panel, CKI, Digoxin, Draw Charge[i] ONE! ([id number]) manual diff Not Indicated (Normal) mpv 6.84 [...] order include: Protime & INR, Draw Charge[i] (68056) Draw Drawn (Normal) 16:45 PT (PROTHROMBIN TIME) Comments: Items in this order include: Protime & INR, Draw Charge[i]Coumadin doasage=5,5,7.5 Repeat ([facility] (53847) 7. Saturday Dosage 5.0 mg (Normal) 6. [...] order include: Draw Charge[i], PSA 11:11 ANTIGEN) ([id number]) PSA 6.92 ng/mL (Abnormal) Range: 0.00-4.00 11:11 Routine Venipuncture Comments: A copy of this report will be faxed to: Bettie Boswell in this order include: Draw Charge[i], PSA ([id number]) Draw Drawn (Normal) 17-Oct-2011 Routine Venipuncture 10:18 ([id number]) Draw Drawn (Normal) 10:18 TESTOSTERONE, FREE, Comments: Items in this order include: Protime & INR, Draw Charge[i], TESTOSTERONE, FREE, BIOAVAILABLE, AND TOTAL, LC/MS/ MSTesting performed at: [facility] [place], [address] [address] [place]IO[place], [place], [address], Herpetologist: Michael Chávez [facility] TOTAL, LC/MS/MS ALBUMIN,SERUM 4.4 [...] and benefits counseling. 10:18 PT (PROTHROMBIN TIME) ([facility] (95120) 7. Saturday Dosage 5.0 mg (Normal) 6. [...] Panel, Hemoglobin A1C, Draw Charge[i] (HGB A1C) (52755) A1C 6.1 % (Normal) Range: 4.6-6.2 13:29 [...] (Normal) Range: 135-145 13:29 DIGOXIN, DRUG ASSAY (35423) DIG 0.85 ng/mL (Abnormal) Range: 0.90-2.00 07-Aug-2011 TESTOSTERONE, FREE, Comments: Items in this order include: TESTOSTERONE, FREE, BIOAVAILABLE, AND TOTAL, LC/MS/MSTesting performed at: [place], [address] [address], [place] , [address], Labo 12:53 WEAKLY BOUND AND TOTAL ratory Director: Michael Chávez MD.[facility] ([id number]) ALBUMIN,SERUM 4.4 g/dL (Normal) Range: 3.6-5.1 SEX [...] INR, Draw Charge[i]no change in coumadin dose ([facility] (10695) 7. Saturday Dosage 7.5 mg (Normal) 6. [...] Metabolic Panel, Protime & INR, Draw Charge[i] ([facility] (85980) 7. Saturday Dosage 5.0 mg (Normal) 5. [...] Boswell in this order include: PSA ANTIGEN) (33061) PSA 5.95 ng/mL (Abnormal) Range: 0.00-4.00 CBC-MALE- ORDER THIS Comments: Items in this order include : Hemoglobin A1C, Comprehensive Metabolic Panel, CBC 11:56 ONE! (81855) manual diff Not Indicated (Normal) mpv 7.65 [...] 6.24 10*3/uL (Normal) Range: 4.50-10.50 11:56 CMP ([id number]) Comments: Items in this order include: Hemoglobin [...] this order include: Digoxin, Draw Charge[i] 15:17 (73972) DIG 1.18 ng/mL (Normal) Range: 0.90-2.00 HEMOGLOBIN GLYCLATED Comments: Items in this order include: Hemoglobin A1C, Comprehensive Metabolic Panel, CBC 11:56 (HGB A1C) (08929) A1C 6.6 % (Abnormal) Range: 4.6-6.2 Comments: Consistent with diabetes. 13:48 PT (PROTHROMBIN TIME) Comments: change to coumadin 5mg x 2 day then 7.5mg x1 repeat the cycle; Items in this order include: Protime & INR, Draw Charge[i]cyclechange to coumadin 5mg x 2 day then 7.5mg x1 repeat the ([facility]) (56251) 6. Saturday Dosage 7.5 mg (Normal) 7. [...] & INR, PSA, Draw Charge[i] 09:43 ANTIGEN) ([id number]) PSA 5.84 ng/mL (Abnormal) Range: 0.00-4.00 09:43 PT (PROTHROMBIN TIME) Comments: no change in coumadin; no change in coumadin ([facility]) (68102) 7. Saturday Dosage 7.5 mg (Normal) 6. Saturday Dosage 5.0 mg (Normal) 5. Dosage 7.5 mg (Normal) 4. Saturday Dosage 5.0 mg (Normal) 3. Saturday Dosage 5.0 mg (Normal) 1. Saturday Dosage 5.0 mg (Normal) 2. Saturday Dosage 7.5 mg (Normal) INR 3.45 (Normal) PT 32.9 s (Abnormal) Range: 10.4-12.4 23-Nov-2010 PT (PROTHROMBIN TIME) 10:03 ([facility] (53792) 6. Saturday Dosage 7.5 mg (Normal) 7. Saturday Dosage 5 mg (Normal) 1. Saturday Dosage 5 mg (Normal) 2. Saturday Dosage 7.5 mg (Normal) 3. Saturday Dosage 5 mg (Normal) 4. Saturday Dosage 7.5 mg (Normal) 5. Dosage 5 mg (Normal) INR 2.16 (Normal) PT 21.0 s (Abnormal) Range: 10.4-12.4 19-Oct-2010 PT (PROTHROMBIN TIME) 15:16 ([facility] (73541) 6. Saturday Dosage 5 mg (Normal) 7. Saturday Dosage 7.5 mg (Normal) 3. Saturday Dosage 7.5 mg (Normal) 4. Saturday Dosage 5 mg (Normal) 5. Dosage 7.5 mg (Normal) 1. Saturday Dosage 7.5 mg (Normal) 2. Saturday Dosage 5 mg (Normal) INR 2.13 (Normal) PT 20.7 s (Abnormal) Range: 10.4-12.4 12-Sep-2010 PT (PROTHROMBIN TIME) 11:03 ([facility] (87216) INR 2.57 (Normal) PT (PROTHROMBIN TIME) 24.8 s (Abnormal) Range: 11.5-13.5 22-Aug-2010 PT (PROTHROMBIN TIME) 13:41 ([facility] (07613) 09-Aug-2010 PSA, MEDICARE (G0103) Comments: please fax to dr hema boswell 09:54 PSA (Medicare) 4.83 ng/mL (Abnormal) Range: 0 - 4 09:34 PT (PROTHROMBIN TIME) ([facility] (42649) INR 2.68 (Normal) PT (PROTHROMBIN TIME) 25.8 s (Abnormal) Range: 11.5-13.5 27-Jun-2010 PT (PROTHROMBIN TIME) 08:38 ([facility] (45746) 26-Jun-2010 PT (PROTHROMBIN TIME) 16:21 ([facility] (71415) INR 1.89 (Normal) PT (PROTHROMBIN TIME) 18.4 s (Abnormal) Range: 11.5-13.5 Treatment Plan LIPID PANEL (93461); Ordered: 10/28/2015; Note: Verbal order from Dr. 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 Symptoms do not include headache or dizziness. The patient describes this as unchanged. Symptoms are not exacerbated by stress or fat igue. Associated symptoms do not include chest pain or near syncope. Current treatment includes angiotensin receptor blockers (lisinopril 10mg daily). By report there is good compliance with treatment. Note for "Hypertension": Here for a 3 month follow up with Dr. Nneka M.D. Patient states is doing well but is concerned about a skin tag that is on right right eye lid. Denies any pain or problems with skin tag. His is more concerned than he is., [ADDITIONAL REASON] Atrial Fibrillation - This was diagnosed as chronic atrial fibrillation. Symptom s do not include palpitations or dizziness. Current treatment includes calcium antagonists (diltiazem 240mg daily) and warfarin. Note for "Atrial fibrillation ": here for a 3 month follow up with Dr. Tavia velasquez M.D. Patient denies any problems with his a-fib at todays visit. [facility] [place] Historical Summary On 26-Oct-2015 [facility] [place] 16:00 to 16:03 Lab entry only - Controlled atrial fibrillation (427.31 | I48.91), Benign prostatic hypertrophy (600.00 | N40.0) On 08-Sep-2015 [facility] [place] 16:01 to 16:21 Medication Entry - Benign essential hypertension (401.1 | I10), Controlled atrial fibrillation (427.31 | I48.91) On 02-Aug-2015 [facility] [place] 08:43 to 08:50 Office Visit - PG (pyogenic granuloma) (686.1 | L98.0) On 27-Jul-2015 Encounter Reason: Skin Lesions - Note for "Skin lesions": 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 He said he is having quite a bit of pain with the nodule and some occasional drainage. Seems to be recurrent for him. 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 The course has been increasing. The finger kinjal l problems are described as severe. Note for "Finger nail problems": He continues with his usual medications.[facility] [place] Lab entry only - Encounter for long-term (current) use of anticoagulants ( V58.61 | Z79.01) On 07-Jul-2015 [facility] [place] 16:55 to 16:56 Office Visit - Benign [...] the stairs and I have to crawl. [facility] [place] Historical Summary On [facility] [place] 12:33 to 12:36 Lab entry only - Encounter for long-term (current) use of anticoagulants ( V58.61 | Z79.01) On [facility] [place] 17:37 to 17:39 Lab entry only - Elevated PSA (790.93) On [facility] [place] 10:10 to 10:11 Lab entry only - Encounter for long-term (current) use of anticoagulants ( V58.61 | Z79.01), Encounter for long-term (current) use of anticoagulants ( V58.61 | Z79.01) On 14-Jan-2015 [facility] [place] 14:52 to 14:53 Lab entry only - Encounter for long-term (current) use of anticoagulants ( V58.61 | Z79.01), Encounter for long-term (current) use of anticoagulants ( V58.61 | Z79.01) On 29-Nov-2014 [facility] [place] 12:31 to 15:09 Medication Entry - Diabetes mellitus (250.00 | E11.9) On 12-Nov-2014 [facility] [place] 11:46 to 11:53 Medication Entry - Cellulitis, leg (682.6 | L03.119) On 11-Nov-2014 [facility] [place] 09:48 to 10:00 Office Visit - Gout [...] "Transition into care": He feels things are improved.[facility] [place] Historical Summary On 27-Oct-2014 [facility] [place] 15:03 to 15:08 Lab entry only - Fibrillation, atrial (427.31), Encounter for long-term ( current) use of anticoagulants (V58.61 | Z79.01) On 18-Oct-2014 [facility] [place] 17:08 to 17:09 Medication Entry - Gout (274.9 | M10.9) On 12-Oct-2014 [facility] [place] 16:17 to 16:22 Lab entry only - Encounter for long-term (current) use of anticoagulants ( V58.61 | Z79.01) On 21-Sep-2014 [facility] [place] 15:31 to 15:33 Radiology Visit - Carotid stenosis (433.10 | I65.29) On 14-Sep-2014 [facility] [place] 09:33 to 09:36 Lab entry only - Encounter for long-term (current) use of anticoagulants ( V58.61 | Z79.01) On 24-Aug-2014 [facility] [place] 16:31 to 16:34 Office Visit - Health education (V65.40 | Z71.9), Prevnar (PCV13)FOR MEDICARE USE ONLY Pneumovax injection (V03.82) 28158, Encounter for long-term ( current) use of anticoagulants (V58.61 | Z79.01), Fi On 12-Aug-2014 brillation, atrial (427.31), Elevated PSA [...] lifeline screening. He mentions the "discoloration" of ankles.[facility] [place] Historical Summary On 11-Aug-2014 [facility] [place] 16:16 to 16:19 Lab entry only - Fibrillation, atrial (427.31), Encounter for long-term ( current) use of anticoagulants (V58.61 | Z79.01) On 06-Aug-2014 [facility] [place] 16:41 to 16:43 Medication Entry - Benign essential hypertension (401.1 | I10) On 21-Jun-2014 [facility] [place] 11:12 to 11:14 Lab entry only - Encounter for long-term (current) use of anticoagulants ( V58.61 | Z79.01) On 03-Jun-2014 [facility] [place] 16:13 to 16:15 Lab entry only - Encounter for long-term (current) use of anticoagulants ( V58.61 | Z79.01) On [facility] [place] 13:22 to 13:23 Lab entry only - Elevated PSA (790.93), Encounter for long-term (current) use of anticoagulants (V58.61 | Z79.01) On [facility] [place] 14:27 to 14:28 Office Visit - Foot [...] thing in the morning and on stairs. [facility] [place] Historical Summary On 28-Dec-2013 [facility] [place] 12:26 to 12:29 Medication Entry - Encounter for long-term (current) use of anticoagulants ( V58.61 | Z79.01), Diabetes mellitus (250.00 | E11.9), Fibrillation, atrial ( 427.31) On 03-Nov-2013 [facility] [place] 09:01 to 11:53 Medication Entry - Fibrillation, atrial (427.31), Diabetes mellitus (250.00 | E11.9) On 30-Oct-2013 [facility] [place] 15:55 to 16:00 Lab entry only - Encounter for long-term (current) use of anticoagulants ( V58.61 | Z79.01) On 27-Oct-2013 [facility] [place] 17:57 to 17:59 Office Visit - Need [...] M.D. after being in the hospital at [facility] on 10/16/13 & discharged on 10/17/13 dx jasmeet diaz, inr was done prior to visit.) . Note for "Transition into care": He passed a kidney stone a week ago.[facility] [place] Historical Summary On 23-Oct-2013 [facility] [place] 14:42 to 14:45 Lab entry only - Encounter for long-term (current) use of anticoagulants ( V58.61 | Z79.01) On 20-Oct-2013 [facility] [place] 16:31 to 16:33 Lab entry only - Encounter for long-term (current) use of anticoagulants ( V58.61 | Z79.01) On 16-Sep-2013 [facility] [place] 10:14 to 10:15 Lab entry only - Elevated PSA (790.93) On 15-Sep-2013 [facility] [place] 11:11 to 11:12 Lab entry only - Encounter for long-term (current) use of anticoagulants ( V58.61 | Z79.01) On 07-Aug-2013 [facility] [place] 14:32 to 14:33 Lab entry only - Benign essential hypertension (401.1 | I10), Diabetes mellitus (250.00 | E11.9) On 07-Aug-2013 [facility] [place] 11:18 to 11:19 Lab entry only - Encounter for long-term (current) use of anticoagulants ( V58.61 | Z79.01) On 01-May-2013 [facility] [place] 10:33 to 10:38 Office Visit - Diabetes [...] He did miss some meds while he traveled.[facility] [place] Historical Summary On 29-Apr-2013 [facility] [place] 11:46 to 11:49 Lab entry only - Encounter for long-term (current) use of anticoagulants ( V58.61 | Z79.01) On [facility] [place] 16:39 to 16:42 Lab entry only - Encounter for long-term (current) use of anticoagulants ( V58.61 | Z79.01) On [facility] [place] 19:40 to 19:42 Lab entry only - Elevated PSA (790.93) On [facility] [place] 12:03 to 12:07 Office Visit - Laryngotracheobronchitis [...] for "Cough": He has not had an antibiotic.[facility] [place] Lab entry only - Encounter for long-term (current) use of anticoagulants ( V58.61 | Z79.01) On 16-Dec-2012 [facility] [place] 18:21 to 18:23 Lab entry only - Encounter for long-term (current) use of anticoagulants ( V58.61 | Z79.01) On 27-Nov-2012 [facility] [place] 16:52 to 16:53 Lab entry only - Encounter for long-term (current) use of anticoagulants ( V58.61) On 26-Nov-2012 [facility] [place] 15:04 to 15:05 Office Visit - Encounter [...] first thing in the morning and on stairs.[facility] [place] Historical Summary On 29-Oct-2012 [facility] [place] 16:15 to 16:17 Lab entry only - Encounter for long-term (current) use of anticoagulants ( V58.61) On 15-Oct-2012 [facility] [place] 09:51 to 09:57 Lab entry only - Encounter for long-term (current) use of anticoagulants ( V58.61), Elevated PSA (790.93) On 14-Oct-2012 [facility] [place] 10:25 to 10:26 Lab entry only - Encounter for long-term (current) use of anticoagulants ( V58.61) On 12-Sep-2012 [facility] [place] 13:44 to 13:45 Medication Entry - Edema (782.3), Fibrillation, atrial (427.31) On 20-Aug-2012 [facility] [place] 11:10 to 11:12 Medication Entry - Fibrillation, atrial (427.31), Edema (782.3) On 19-Aug-2012 [facility] [place] 17:29 to 18:11 Medication Entry - Encounter for long-term (current) use of anticoagulants ( V58.61), Fibrillation, atrial (427.31), Diabetes mellitus (250.00) On 2011 [facility] [place] 17:44 to 17:53 Office Visit - 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), Inflamed seborrheic keratosis (702.11), Hyperglycemia (790.29), Encounter for long-term (current) use of anticoagulants (V58.61), Fibrillation, atrial (427.31) On 01-Aug-2012 Encounter Reason: Follow up for chronic condition - The patient feels well with minor complaints (here today for a 3 month follow up with Dr. Romero ) .[facility] [place] 09:34 to 10:39 Medication Entry - Encounter for long-term (current) use of anticoagulants ( V58.61) On 31-Jul-2012 [facility] [place] 18:21 to 18:22 Historical Summary On 31-Jul-2012 [facility] [place] 11:40 to 11:42 Lab entry only - Encounter for long-term (current) use of anticoagulants ( V58.61) On 23-Jun-2012 [facility] [place] 18:47 to 18:52 Lab entry only - Elevated PSA (790.93), Encounter for long-term (current) use of anticoagulants (V58.61) On 23-Jun-2012 [facility] [place] 15:48 to 15:53 Office Visit - Adjustment disorder with depressed mood (309.0), Encounter for long-term (current) use of anticoagulants (V58.61), Elevated PSA (790.93) On Encounter Reason: Follow up for chronic condition - The patient feels well with minor complaints (here for a 6 week follow up visit do to a new medication but did not start the medication).[facility] [place] 11:19 to 13: 39 Historical Summary On 30-Apr-2012 [facility] [place] 11:50 to 11:52 Lab entry only - Encounter for long-term (current) use of anticoagulants ( V58.61) On 28-Apr-2012 [facility] [place] 17:23 to 17:26 Lab entry only - Elevated PSA (790.93), Encounter for long-term (current) use of anticoagulants (V58.61) On 28-Apr-2012 [facility] [place] 14:19 to 14:22 Office Visit - Hyperglycemia [...] , had lab done prior to appt today).[facility] [place] Lab entry only - Edema (782.3), Hyperglycemia (790.29), Encounter for long- term (current) use of anticoagulants (V58.61) On [facility] [place] 11:06 to 11:14 Lab entry only - Elevated PSA (790.93), Fibrillation, atrial (427.31), Edema ( 782.3) On [facility] [place] 09:02 to 09:05 Lab entry only - Encounter for long-term (current) use of anticoagulants ( V58.61) On [facility] [place] 16:44 to 16:45 Medication Entry On 26-Oct-2011 [facility] [place] 13:30 to 13:32 Lab entry only - Elevated PSA (790.93) On 23-Oct-2011 [facility] [place] 11:01 to 11:04 Lab entry only - Encounter for long-term (current) use of anticoagulants ( V58.61), Low testosterone (257.2) On 17-Oct-2011 [facility] [place] 10:15 to 10:17 Medication Entry - Fibrillation, atrial (427.31) On 04-Oct-2011 [facility] [place] 09:26 to 09:38 Medication Entry - Fibrillation, atrial (427.31), Edema (782.3), Encounter for long-term (current) use of anticoagulants (V58.61), Benign prostatic hypertrophy without lower urinary tract symptoms (LUTS) (600.00) On 02-Oct-2011 [facility] [place] 18:56 to 19:02 Medication Entry - Encounter for long-term (current) use of anticoagulants ( V58.61), Fibrillation, atrial (427.31), Edema (782.3) On 26-Sep-2011 [facility] [place] 11:06 to 11:11 Medication Entry - Fibrillation, atrial (427.31), Encounter for long-term ( current) use of anticoagulants (V58.61) On 24-Sep-2011 [facility] [place] 10:41 to 10:49 Lab entry only - Low testosterone (257.2) On 10-Aug-2011 [facility] [place] 13:03 to 13:05 Lab entry only - Hyperglycemia (790.29), Encounter for long-term (current) use of anticoagulants (V58.61), Fibrillation, atrial (427.31) On 08-Aug-2011 [facility] [place] 13:27 to 13:29 Office Visit - Fibrillation, [...] includes calcium antagonists and digoxin (diuretic and harreitt inhibitor). By report there is good compliance [...] he 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." [facility] [place] Historical Summary On 06-Aug-2011 [facility] [place] 12:22 to 12:24 Medication Entry - Fibrillation, atrial (427.31) On 05-Jun-2011 [facility] [place] 08:54 to 08:59 Lab entry only - Encounter for long-term (current) use of anticoagulants ( V58.61) On 15-May-2011 [facility] [place] 18:48 to 18:50 Office Visit - Edema [...] up is diabetes, hypertension, cardiovascular disorder and other.[facility] [place] Medication Entry - Benign prostatic hypertrophy without lower urinary tract symptoms (LUTS) (600.00) On 19-Apr-2011 [facility] [place] 08:49 to 08:51 Lab entry only - Benign prostatic hypertrophy without lower urinary tract symptoms (LUTS) (600.00) On 10-Apr-2011 [facility] [place] 15:15 to 15:19 Office Visit - Elevated [...] seeing dr. boswell the middle of apr.). [facility] [place] Historical Summary On [facility] [place] 16:05 to 16:18 Lab entry only - Encounter for long-term (current) use of anticoagulants ( V58.61) On [facility] [place] 17:34 to 17:36 Lab entry only - Encounter for long-term (current) use of anticoagulants ( V58.61), Elevated PSA (790.93) On [facility] [place] 09:42 to 09:43 Lab entry only - Encounter for long-term (current) use of anticoagulants ( V58.61) On 24-Nov-2010 [facility] [place] 08:55 to 08:57 Lab entry only - Encounter for long-term (current) use of anticoagulants ( V58.61) On 20-Oct-2010 [facility] [place] 14:42 to 14:46 Historical Summary - Encounter for long-term (current) use of anticoagulants ( V58.61) On 13-Sep-2010 [facility] [place] 10:53 to 10:59 Historical Summary 12-Sep-2010 to 13-Sep-2010 [facility] [place] Lab entry only - Encounter for long-term (current) use of anticoagulants ( V58.61) On 14-Aug-2010 [facility] [place] 17:44 to 17:49 Historical Summary - Elevated PSA (790.93) 09-Aug-2010 to 15-Aug-2010 [facility] [place] Lab entry only - Encounter for long-term (current) use of anticoagulants ( V58.61) 27-Jun-2010 to 28-Jun-2010 [facility], [place] Lab entry only - Encounter for long-term (current) use of anticoagulants ( V58.61) On 26-Jun-2010 [facility], [place] 16:21 to 22:23 Insurance Vijay Yuan; a guarantorMedicare [employer]erve [facility] Farm Insurance
--- OUTSIDE RECORDS SUMMARY | 2017-10-22 17:40 | External Medical Summary | Continuity of Care Document ---
:1940 Author Organization [facility] Address [address] [place] [address] Phone Care Team Providers Name Role Phone James Romero MD Primary Care Provider James Romero MD Unavailable Judith Clay Unavailable Unavailable Suzanne Rebollar Unavailable Unavailable Unavailable Unavailable Problems Name Dates Details Adjustment disorder with depressed mood (309.0, F43.21) Status: Active Ankle pain, right (719.47, M25.571) Status: Active Benign essential hypertension (401.1, I10) Status: Active Benign prostatic hypertrophy (600.00, N40.0) Status: Active Benign prostatic hypertrophy with urinary frequency (600.01, N40.1) Status: Active Bilateral knee pain (719.46, M25.561) Status: Active Carotid stenosis (433.10, I65.29) Status: [...] anticoagulants (V58.61, Z79.01) Status: Active Fibrillation, atrial (427.31, I48.91) Status: Active Foot pain, left (729.5, M79.672) [...] Active BACTRIM DS, 800-160MG (Oral Tablet) 1 two times daily (800-160 MG) Inactive Comments:04-30-[address] boswell BACTRIM DS, 800-160MG (Oral Tablet) 1 (one) Tablet two times daily for 10 days Quantity: 20 {Tablet} Refills: 0 Ordered:11-Nov-2014 Nohelia Combs Start 11-Nov-2014 End 21-Nov-2014 Inactive CIPRO, 500MG (Oral Tablet) 1 two times daily (500 MG) Inactive Comments:started on 10/17/13 after being dismissed from [facility] for kidney stone by gale CITALOPRAM [...] dx kidney stone from being discharged from [facility] testrone cream 10% apply 0.5ml daily [...] History. Procedures Procedure Dates Details Follow up in 4 months Ordered: X-RAY EXAM OF KNEE, 1 OR 2 VIEWS Completed: Comments: right (69605) X-RAY EXAM OF BOTH KNEES, Completed: STANDING (72513) How to access health information Completed: online Follow up - Keep appt as scheduled Ordered:28-Oct-2014 CAROTID BILATERAL US ([id number]) Completed:14-Sep-2014 Comments: Verbal order from Dr. James Romero Follow up in 6 months Ordered:12-Aug-2014 PREVNAR 13 VALENT PNEUMOCOCCAL Completed:12-Aug-2014 VACCINE ([id number]) ADMINISTRATION OF PNEUMOCOCCAL Ordered:12-Aug-2014 CONJUGATE VACCINE (G0009) How to access health information Completed:12-Aug-2014 online Follow up in 6 months Ordered: Follow up in 2 months Ordered:26-Oct-2013 ADMIN INFLUENZA VIRUS VAC: FLU VACC Completed:26-Oct-2013 PRSV FREE INC ANTIG (56073) ADMINISTRATION OF INFLUENZA VIRUS Ordered:26-Oct-2013 VACCINE (G0008) Follow up in 6 months Ordered:30-Apr-2013 Follow up - Keep appt as scheduled Ordered:02-Jan-2013 Follow up in 6 months Ordered:30-Oct-2012 Follow up in 3 months Ordered:01-Aug-2012 Follow up in 3 months Ordered:01-May-2012 Follow up in 6 weeks Ordered: ADMINISTRATION OF INFLUENZA VIRUS Ordered:14-May-2011 VACCINE (G0008) FLU VACC PRSV FREE INC ANTIG Completed:14-May-2011 (96684) Follow up in 2 months Ordered:14-May-2011 Follow up in 2 months Ordered: Annual Eye Exam Completed:22-Nov-2008 Colonoscopy, Screening Completed: Colonoscopy, Screening Completed:06-Oct-2014 Flu Vaccine Completed:26-Oct-2013 Flu Vaccine Completed:06-Jun-2012 Comments: jc Flu Vaccine Completed:14-May-2011 Comments: high dose Pneumovax Completed:2008 prevnar 13 Completed:12-Aug-2014 PSA Completed:28-Apr-2012 Comments: (16.45) PSA Completed:10-Apr-2011 Comments: (5.95) PSA Completed:23-Jun-2012 Comments: (8.05) PSA Completed:14-Oct-2012 Comments: (8.11) PSA Completed: Comments: (5.60) PSA Completed:15-Sep-2013 Comments: (5.40) PSA Completed: Comments: (6.15) PSA Completed:24-Aug-2014 Comments: (7.11) PSA Completed: Comments: (6.55) Immunization Name Dates Details Fluzone Administered on:14-May-2011 Comments: Site: Deltoid (Left); high dose Lot #: [id number] Influenza, preserv. free, enhanced immunogncty, IM Administered on:2013 Comments: Site: Deltoid (Left) Lot #: [id number] Pneumococcal conjugate vaccine, 13 valent, IM Administered on:12-Aug-2014 Comments: Site: Deltoid (Left) Lot #: [id number] Social History Name Dates Details Tobacco use: [...] Comments: The left neck Final 10:36 SINGLE (74342) lesion was removed and also the left [...] not sent to pathology. 10:35 PUNCH BIOPSY (64133) Comments: After Final FIRST BIOPSY cleansing the [...] have a artifical heart valve? No 15:06 ([facility]) (31555) 9. Saturday Dosage 7.5 mg (Normal) 8. [...] order include: Draw Charge[i], Protime & INR (30633) Draw Drawn (Normal) [facility] (63529) Comments: Items in this order include: Basic [...] include: A COPY TO [kyung], PSA ANTIGEN) (49745) PSA 6.55 ng/mL (Abnormal) Range: 0.00-4.00 09:[address] Boswell Comments: A copy of this report will be faxed to: Bettie Boswell in this order include: A COPY TO [eliana, PSA Ordering Doctor . (Normal) 09:15 PT (PROTHROMBIN TIME) Comments: Items in this order include: Draw Charge[i], Protime & INRDoes patient have a artifical heart valve? No ([facility]) (25267) 8. Saturday Dosage 7.5 mg (Normal) 9. [...] order include: Draw Charge[i], Protime & INR (25395) Draw Drawn (Normal) -Dec-2014 PT (PROTHROMBIN TIME) Comments: Items in this order include: Draw Charge[i], Protime & INRDoes patient have a artifical heart valve? No 09:28 ([facility]) (75694) 9. Saturday Dosage 5.0 mg (Normal) 7. [...] order include: Draw Charge[i], Protime & INR (66466) Draw Drawn (Normal) 28-Oct-2014 PT (PROTHROMBIN TIME) Comments: Items in this order include: Draw Charge[i], Protime & INRDoes patient have a artifical heart valve? No 10:48 ([facility]) (67705) 9. Saturday Dosage 7.5 mg (Normal) 8. [...] order include: Draw Charge[i], Protime & INR (28730) Draw Drawn (Normal) 29-Nov-2014 PT (PROTHROMBIN TIME) Comments: Items in this order include: Draw Charge[i], Protime & INRDoes patient have a artifical heart valve? No 10:28 ([facility]) (58941) 9. Saturday Dosage 5.0 mg (Normal) 8. [...] order include: Draw Charge[i], Protime & INR (61169) Draw Drawn (Normal) 21-Sep-2014 PT (PROTHROMBIN TIME) Comments: Items in this order include: Draw Charge[i], Protime & INRDoes patient have a artifical heart valve? No 10:08 ([facility]) (10301) 9. Saturday Dosage 5.0 mg (Normal) 7. [...] order include: Draw Charge[i], Protime & INR (52674) Draw Drawn (Normal) 24-Aug-2014 Routine Venipuncture Comments: Items in this order include: Protime & INR, Draw Charge[i] 09:59 (46355) Draw Drawn (Normal) 09:59 PT (PROTHROMBIN TIME) Comments: Items in this order include: Protime & INR, Draw Charge[i]INR value > 3.0 given to Estella by Beny Buckley patient have a artifical heart valve? No ([facility]) (49561) 9. Saturday Dosage 7.5 mg (Normal) 7. [...] Panel, Hemoglobin A1C, Urine Microalbumin, CBC ONE! (54260) manual diff Not Indicated (Normal) mpv 9.60 [...] Metabolic Panel, Hemoglobin A1C, Urine Microalbumin, CBC (16555) U A:C RATIO <30 mg/g Normal Range: <30 mg/g Normal (Normal) U CREAT 200 mg/dL (Normal) Range: 10-300 U ALB 80 mg/L (Abnormal) Range: 10 mg/L 09:59 HEMOGLOBIN GLYCLATED Comments: Items in this order include: Digoxin , PSA, Basic Metabolic Panel, Hemoglobin A1C, Urine Microalbumin, CBC (HGB A1C) (70530) A1C 5.9 % (Normal) Range: 4.6-6.2 Comments: Increased risk of diabetes. 09:59 [facility] (43635) Comments: Items in this order include: Digoxin, [...] Panel, Hemoglobin A1C, Urine Microalbumin, CBC ANTIGEN) (57788) PSA 7.11 ng/mL (Abnormal) Range: 0.00-4.00 09:59 DIGOXIN (69679) Comments: Items in this order include: Digoxin, PSA , Basic Metabolic Panel, Hemoglobin A1C, Urine Microalbumin, CBCTime of Last Dose? 08/23/2014 8:00 AMDosage? 0.25 DIG 0.36 ng/mL (Abnormal) Range: 0.90-2.00 05-Aug-2014 PT (PROTHROMBIN TIME) Comments: Items in this order include: Draw Charge[i], Protime & INRDoes patient have a artifical heart valve? No 10:48 ([facility]) (58728) 8. Saturday Dosage 7.5 mg (Normal) 9. [...] order include: Draw Charge[i], Protime & INR (00091) Draw Drawn (Normal) -Jun-2014 PT (PROTHROMBIN TIME) Comments: Items in this order include: Draw Charge[i], Protime & INRDoes patient have a artifical heart valve? No 13:56 ([facility]) (49293) 9. Saturday Dosage 7.5 mg (Normal) 8. [...] order include: Draw Charge[i], Protime & INR (26643) Draw Drawn (Normal) PT (PROTHROMBIN TIME) Comments: Items in this order include: Protime & INRDoes patient have a artifical heart valve? No 14:25 ([facility]) (55463) 9. Saturday Dosage 5.0 mg (Normal) 8. [...] this order include: Draw Charge[i], PSA ANTIGEN) (36199) PSA 6.15 ng/mL (Abnormal) Range: 0.00-4.00 14:25 Routine Venipuncture Comments: A copy of this report will be faxed to: Bettie Boswell in this order include: Draw Charge[i], PSA (29685) Draw Drawn (Normal) HEMOGLOBIN GLYCLATED Comments: Items in this order include: Hemoglobin A1C, Draw Charge[i], Comprehensive Metabolic Panel, Uric Acid 15:06 (HGB A1C) (01240) A1C 5.7 % (Normal) Range: 4.6-6.2 15:06 CMP (03771) Comments: Items in this order include: Hemoglobin [...] (Normal) Range: 135-145 15:06 URIC ACID BLOOD (22586) Comments: Items in this order include: Hemoglobin A1C, Draw Charge[i], Comprehensive Metabolic Panel, Uric Acid Uric Acid 8.0 mg/dL (Abnormal) Range: 3.6-7.7 15:06 Routine Venipuncture Comments: Items in this order include: Hemoglobin A1C, Draw Charge[i], Comprehensive Metabolic Panel, Uric Acid (43083) Draw Drawn (Normal) -January-2014 PT (PROTHROMBIN TIME) Comments: Items in this order include: Draw Charge[i], Protime & INRDoes patient have a artifical heart valve? No 14:27 ([facility]) (04555) 8. Saturday Dosage 5.0 mg (Normal) 9. [...] order include: Draw Charge[i], Protime & INR (01575) Draw Drawn (Normal) 26-Oct-2013 Draw Charge[i] Comments: Items in this order include: Basic Metabolic Panel, Draw Charge[i] 17:08 Draw Drawn (Normal) 17:05 [facility] (28149) Comments: Items in this order include: Basic [...] patient have a artifical heart valve? No ([facility]) (96750) 9. Saturday Dosage 5.0 mg (Normal) 7. [...] order include: Draw Charge[i], Protime & INR (85687) Draw Drawn (Normal) 15-Sep-2013 PSA (PROSTATE SPECIFIC Comments: A copy of this report will be faxed to: Bettie Boswell in this order include: A COPY TO [kyung] PSAPSA allowed more than once a year due to being a Diagonistic PSA not a screening PSA 11:05 ANTIGEN) (20849) PSA 5.40 ng/mL (Abnormal) Range: 0.00-4.00 11:05 [...] this order include: Comprehensive Metabolic Panel, Hemoglobin P1TAruf Hgb A1C was ran 99 Days ago. Check by MARGARITA 10:38 (HGB A1C) (17882) A1C 5.9 % (Normal) Range: 4.6-6.2 Comments: Increased risk of diabetes. 10:38 CMP (40711) Comments: Items in this order include: Comprehensive Metabolic Panel, Hemoglobin [id number] Hgb A1C was ran 99 Days ago. [...] patient have a artifical heart valve? No ([facility]) (65362) 9. Saturday Dosage 5.0 (cycle of 5,5,7.5 [...] order include: Draw Charge[i], Protime & INR (66070) Draw Drawn (Normal) 10:38 DIGOXIN (76659) Comments: Items in this order include: DigoxinTime of Last Dose? 08/06/2013 8:30 AMDosage? 0.25 mg daily DIG 0.48 ng/mL (Abnormal) Range: 0.90-2.00 30-Apr-2013 HEMOGLOBIN GLYCLATED Comments: Items in this order include: Comprehensive Metabolic Panel, CBC, Hemoglobin [id number] Hgb A1C was ran 225 Days ago. Check by ms 11:58 (HGB A1C) (79273) A1C 6.1 % (Normal) Range: 4.6-6.2 11:58 CBC MALE- ORDER THIS Comments: Items in this order include: Comprehensive Metabolic Panel, CBC, Hemoglobin [id number] Hgb A1C was ran 225 Days ago. Check by ms ONE! (84866) manual diff Not Indicated (Normal) mpv 4.88 [...] 6.15 10*3/uL (Normal) Range: 4.50-10.50 11:58 CMP (81773) Comments: Items in this order include: Comprehensive Metabolic Panel, CBC, Hemoglobin [id number] Hgb A1C was ran 225 Days ago. [...] patient have a artifical heart valve? No ([facility]) (73597) 4. Saturday Dosage Repeat mg (Normal) 3. Saturday Dosage 7.5 mg (Normal) 2. Saturday Dosage 5.0 mg (Normal) 1. Saturday Dosage 5.0 mg (Normal) INR 2.60 (Normal) PT 26.8 s (Abnormal) Range: 10.4-12.4 -March-2013 PT (PROTHROMBIN TIME) Comments: Items in this order include: Draw Charge[i], Protime & INRDoes patient have a artifical heart valve? No 15:12 ([facility]) (13915) 5. Dosage Repeat mg (Normal) 4. Saturday Dosage 5.0 mg (Normal) 3. Saturday Dosage 5.0 mg (Normal) 2. Saturday Dosage 7.5 mg (Normal) INR 2.31 (Normal) PT 24.0 s (Abnormal) Range: 10.4-12.4 15:12 Routine Venipuncture Comments: Items in this order include: Draw Charge[i], Protime & INR (39214) Draw Drawn (Normal) PSA (PROSTATE SPECIFIC Comments: A copy of this report will be faxed to: Bettie Boswell in this order include: PSA, Draw Charge[i]PSA allowed more than once a year due to being a Diagonistic PSA not a screening PSA 10:00 ANTIGEN) (37311) PSA 5.60 ng/mL (Abnormal) Range: 0.00-4.00 10:00 [...] patient have a artifical heart valve? No ([facility]) (61078) 3. Saturday Dosage Repeat mg (Normal) 2. Saturday Dosage 7.5 mg (Normal) 1. Saturday Dosage 5.0 mg (Normal) INR 2.64 (Normal) PT 27.2 s (Abnormal) Range: 10.4-12.4 10:09 Routine Venipuncture Comments: Items in this order include: Draw Charge[i], Protime & INR (68102) Draw Drawn (Normal) 16-Dec-2012 PT (PROTHROMBIN TIME) Comments: Items in this order include: Draw Charge[i], Protime & INRDoes patient have a artifical heart valve? No 10:46 ([facility]) (64944) 4. Saturday Dosage Repeat mg (Normal) 3. Saturday Dosage 5.0 mg (Normal) 2. Saturday Dosage 7.5 mg (Normal) INR 2.13 (Normal) PT 22.2 s (Abnormal) Range: 10.4-12.4 10:46 Routine Venipuncture Comments: Items in this order include: Draw Charge[i], Protime & INR (32107) Draw Drawn (Normal) 26-Nov-2012 Routine Venipuncture Comments: Items in this order include: Protime & INR, Draw Charge[i] 15:05 (01121) Draw Drawn (Normal) 15:05 PT (PROTHROMBIN TIME) Comments: Items in this order include: Protime & INR, Draw Charge[i]Does patient have a artifical heart valve? No ([facility]) (96329) 4. Saturday Dosage 5.0 Repeat mg (Normal) 3. Saturday Dosage 5.0 mg (Normal) 2. Saturday Dosage 7.5 mg (Normal) INR 1.34 (Normal) PT 14.4 s (Abnormal) Range: 10.4-12.4 30-Oct-2012 PT (PROTHROMBIN TIME) Comments: Items in this order include: Draw Charge[i], Protime & INRINR value > 3.0 given to BW by Froy Chávez patient have a artifical heart valve? No 10:38 ([facility]) (63021) 7. Saturday Dosage 7.5 mg (Normal) 6. [...] order include: Draw Charge[i], Protime & INR (89428) Draw Drawn (Normal) 11:33 BMP Comments: Items [...] Dose? 10/29/2012 8:00 PMDosage? 0.25 mg Daily (55528) DIG 1.64 ng/mL (Normal) Range: 0.90-2.00 14-Oct-2012 PSA (PROSTATE SPECIFIC Comments: A copy of this report will be faxed to: Bettie Boswell in this order include: Draw Charge[i], Protime & INR, PSAPSA allowed more than once a year due to being a Diagonistic PSA not a screening PSA 10:25 ANTIGEN) (25199) PSA 8.11 ng/mL (Abnormal) Range: 0.00-4.00 10:25 PT (PROTHROMBIN TIME) Comments: PSA allowed more than once a year due to being a Diagonistic PSA not a screening PSACoumadin dosage=5,5,5,5,7.5 repeatDoes patient have a artifical heart valve? No ([facility]) (23835) 7. Saturday Dosage 7.5 mg (Normal) 6. [...] a Diagonistic PSA not a screening PSA (57501) Draw Drawn (Normal) 12-Sep-2012 PT (PROTHROMBIN TIME) Comments: Items in this order include: Draw Charge[i], Protime & INRDoes patient have a artifical heart valve? No 09:16 ([facility]) (50007) 6. Saturday Dosage Repeat mg (Normal) 5. Dosage 7.5 mg (Normal) 4. Saturday Dosage 5.0 mg (Normal) 3. Saturday Dosage 5.0 mg (Normal) 2. Saturday Dosage 5.0 mg (Normal) 1. Saturday Dosage 5.0 mg (Normal) INR 2.48 (Normal) PT 25.7 s (Abnormal) Range: 10.4-12.4 09:16 Routine Venipuncture Comments: Items in this order include: Draw Charge[i], Protime & INR (46943) Draw Drawn (Normal) 18-Aug-2012 PT (PROTHROMBIN TIME) Comments: Items in this order include: Protime & INRDoes patient have a artifical heart valve? No 11:44 ([facility]) (39909) 7. Saturday Dosage 5.0 mg (Normal) 6. [...] Days ago. Check by KB (HGB A1C) (12213) A1C 6.2 % (Normal) Range: 4.6-6.2 Comments: High risk of diabetes. 31-Jul-2012 PT (PROTHROMBIN TIME) Comments: Items in this order include: Draw Charge[i], Protime & INRINR value > 3.0 given to Estella by Beny Buckley patient have a artifical heart valve? No 13:32 ([facility]) (90642) 7. Saturday Dosage 5.0 mg (Normal) 6. [...] order include: Draw Charge[i], Protime & INR (33080) Draw Drawn (Normal) 23-Jun-2012 PSA (PROSTATE SPECIFIC Comments: A copy of this report will be faxed to: Bettie Boswell in this order include: Draw Charge[i], Protime & INR, PSAPSA allowed more than once a year due to being a Diagonistic PSA not a screening PSA 15:50 ANTIGEN) (76634) PSA 8.05 ng/mL (Abnormal) Range: 0.00-4.00 15:50 PT (PROTHROMBIN TIME) Comments: A copy of this report will be faxed to: Bettie Boswell in this order include: Draw Charge[i], Protime & INR , PSAPSA allowed more than once a year due to being a Diagonistic PSA not a screening ([facility]) (93581) PSADoes patient have a artifical heart valve? [...] a Diagonistic PSA not a screening PSA (29201) Draw Drawn (Normal) 13-May-2012 Draw Charge[i] Comments: [...] this report will be faxed to: Bettie Bsowell in this order include: Draw Charge[i], Protime & INR, PSAplease fax the results to dr. hema boswell 14:28 ANTIGEN) (17527) PSA 16.45 ng/mL (Abnormal) Range: 0.00-4.00 14:28 PT (PROTHROMBIN TIME) Comments: Coumadin Dosage=5,5,5,7.5 Repeat. Took 7.5 on 04-27-12. ([facility]) (50016) 5. Dosage 7.5 Repeat mg (Normal) 4. Saturday Dosage 5.0 mg (Normal) 3. Saturday Dosage 5.0 mg (Normal) 2. Saturday Dosage 5.0 mg (Normal) 1. Saturday Dosage 7.5 mg (Normal) INR 2.17 (Normal) PT 22.7 s (Abnormal) Range: 10.4-12.4 14:28 Routine Venipuncture (87513) Draw Drawn (Normal) 13-May-2012 PSA (PROSTATE SPECIFIC Comments: A copy of this report will be faxed to: Bettie Boswell in this order include: PSA, Draw Charge[i]PSA allowed more than once a year due to being a Diagonistic PSA not a screening PSA 09:20 ANTIGEN) (24548) PSA 11.30 ng/mL (Abnormal) Range: 0.00-4.00 TSH (THYROID Comments: Items in this order include: TSH 16:40 STIMULATING HORMONE) (76235) TSH 1.36 uIU/ml (Normal) Range: 0.34-5.60 14:50 PT (PROTHROMBIN TIME) Comments: Items in this order include: Draw Charge[i], Basic Metabolic Panel, Hemoglobin A1C, Protime & INRLast Hbg A1C was ran 218 Days ago. Check by DL ([facility]) (18876) 5. Dosage Repeat mg (Normal) 4. Saturday [...] ran 218 Days ago. Check (HGB A1C) (57579) by DLplease draw enough blood so if wants other lab ordered A1C 6.0 % [...] ran 218 Days ago. Check by DL (29083) Draw Drawn (Normal) DIGOXIN, DRUG ASSAY Comments: Items in this order include: CBC, Comprehensive Metabolic Panel, CKI, Digoxin, Draw Charge[i] 09:08 (38286) DIG 0.38 ng/mL (Abnormal) Range: 0.90-2.00 09:08 CK Comments: Items in this order include: CBC, Comprehensive Metabolic Panel, CKI, Digoxin, Draw Charge[i] CKI 143 U/L (Normal) Range: 39-308 09:08 CMP (22194) Comments: Items in this order include: CBC, [...] Metabolic Panel, CKI, Digoxin, Draw Charge[i] ONE! (82578) manual diff Not Indicated (Normal) mpv 6.84 [...] order include: Protime & INR, Draw Charge[i] (36602) Draw Drawn (Normal) 16:45 PT (PROTHROMBIN TIME) Comments: Items in this order include: Protime & INR, Draw Charge[i]Coumadin doasage=5,5,7.5 Repeat ([facility]) (62462) 7. Saturday Dosage 5.0 mg (Normal) 6. [...] order include: Draw Charge[i], PSA 11:11 ANTIGEN) (22549) PSA 6.92 ng/mL (Abnormal) Range: 0.00-4.00 11:11 Routine Venipuncture Comments: A copy of this report will be faxed to: Bettie Boswell in this order include: Draw Charge[i], PSA ([id number]) Draw Drawn (Normal) 17-Oct-2011 Routine Venipuncture 10:18 (27236) Draw Drawn (Normal) 10:18 TESTOSTERONE, FREE, Comments: Items in this order include: Protime & INR, Draw Charge[i], TESTOSTERONE, FREE, BIOAVAILABLE, AND TOTAL, LC/MS/ MSTesting performed at: [facility] [place], [address] [address] [place], [place], [address], Purchasing Manager/Sales: Michael Chávez [facility] TOTAL, LC/MS/MS ALBUMIN,SERUM 4.4 [...] and benefits counseling. 10:18 PT (PROTHROMBIN TIME) ([facility]) (76614) 7. Saturday Dosage 5.0 mg (Normal) 6. [...] Panel, Hemoglobin A1C, Draw Charge[i] (HGB A1C) (05889) A1C 6.1 % (Normal) Range: 4.6-6.2 13:29 [...] (Normal) Range: 135-145 13:29 DIGOXIN, DRUG ASSAY (22262) DIG 0.85 ng/mL (Abnormal) Range: 0.90-2.00 07-Aug-2011 TESTOSTERONE, FREE, Comments: Items in this order include: TESTOSTERONE, FREE, BIOAVAILABLE, AND TOTAL, LC/MS/MSTesting performed at: [place], [address] [address], [place] , [address], [place] 12:53 WEAKLY BOUND AND TOTAL ratory Director: Michael Chávez MD.[facility] (35367) ALBUMIN,SERUM 4.4 g/dL (Normal) Range: 3.6-5.1 SEX [...] INR, Draw Charge[i]no change in coumadin dose ([facility]) (38745) 7. Saturday Dosage 7.5 mg (Normal) 6. [...] Metabolic Panel, Protime & INR, Draw Charge[i] ([facility]) (55899) 7. Saturday Dosage 5.0 mg (Normal) 5. [...] Boswell in this order include: PSA ANTIGEN) (42119) PSA 5.95 ng/mL (Abnormal) Range: 0.00-4.00 CBC-MALE- ORDER THIS Comments: Items in this order include : Hemoglobin A1C, Comprehensive Metabolic Panel, CBC 11:56 ONE! (99897) manual diff Not Indicated (Normal) mpv 7.65 [...] 6.24 10*3/uL (Normal) Range: 4.50-10.50 11:56 CMP (34659) Comments: Items in this order include: Hemoglobin [...] this order include: Digoxin, Draw Charge[i] 15:17 (25859) DIG 1.18 ng/mL (Normal) Range: 0.90-2.00 HEMOGLOBIN GLYCLATED Comments: Items in this order include: Hemoglobin A1C, Comprehensive Metabolic Panel, CBC 11:56 (HGB A1C) (90810) A1C 6.6 % (Abnormal) Range: 4.6-6.2 Comments: Consistent with diabetes. 13:48 PT (PROTHROMBIN TIME) Comments: change to coumadin 5mg x 2 day then 7.5mg x1 repeat the cycle; Items in this order include: Protime & INR, Draw Charge[i]cyclechange to coumadin 5mg x 2 day then 7.5mg x1 repeat the ([facility]) (20347) 6. Saturday Dosage 7.5 mg (Normal) 7. [...] & INR, PSA, Draw Charge[i] 09:43 ANTIGEN) (96868) PSA 5.84 ng/mL (Abnormal) Range: 0.00-4.00 09:43 PT (PROTHROMBIN TIME) Comments: no change in coumadin; no change in coumadin ([facility]) (33839) 7. Saturday Dosage 7.5 mg (Normal) 6. Saturday Dosage 5.0 mg (Normal) 5. Dosage 7.5 mg (Normal) 4. Saturday Dosage 5.0 mg (Normal) 3. Saturday Dosage 5.0 mg (Normal) 1. Saturday Dosage 5.0 mg (Normal) 2. Saturday Dosage 7.5 mg (Normal) INR 3.45 (Normal) PT 32.9 s (Abnormal) Range: 10.4-12.4 23-Nov-2010 PT (PROTHROMBIN TIME) 10:03 ([facility]) (65778) 6. Joao Dosage 7.5 mg (Normal) 7. Saturday Dosage 5 mg (Normal) 1. Saturday Dosage 5 mg (Normal) 2. Saturday Dosage 7.5 mg (Normal) 3. Saturday Dosage 5 mg (Normal) 4. Saturday Dosage 7.5 mg (Normal) 5. Dosage 5 mg (Normal) INR 2.16 (Normal) PT 21.0 s (Abnormal) Range: 10.4-12.4 19-Oct-2010 PT (PROTHROMBIN TIME) 15:16 ([facility]) (66996) 6. Joao Dosage 5 mg (Normal) 7. Saturday Dosage 7.5 mg (Normal) 3. Saturday Dosage 7.5 mg (Normal) 4. Saturday Dosage 5 mg (Normal) 5. Dosage 7.5 mg (Normal) 1. Saturday Dosage 7.5 mg (Normal) 2. Saturday Dosage 5 mg (Normal) INR 2.13 (Normal) PT 20.7 s (Abnormal) Range: 10.4-12.4 12-Sep-2010 PT (PROTHROMBIN TIME) 11:03 ([facility]) (86359) INR 2.57 (Normal) PT (PROTHROMBIN TIME) 24.8 s (Abnormal) Range: 11.5-13.5 22-Aug-2010 PT (PROTHROMBIN TIME) 13:41 ([facility]) (61720) 09-Aug-2010 PSA, MEDICARE (G0103) Comments: please fax to dr hema boswell 09:54 PSA (Medicare) 4.83 ng/mL (Abnormal) Range: 0 - 4 09:34 PT (PROTHROMBIN TIME) ([facility]) ([id number]) INR 2.68 (Normal) PT (PROTHROMBIN TIME) 25.8 s (Abnormal) Range: 11.5-13.5 27-Jun-2010 PT (PROTHROMBIN TIME) 08:38 ([facility]) ([id number]) 26-Jun-2010 PT (PROTHROMBIN TIME) 16:21 ([facility]) ([id number]) INR 1.89 (Normal) PT (PROTHROMBIN TIME) 18.4 s (Abnormal) Range: 11.5-13.5 Treatment Plan Routine Venipuncture (59538); Ordered: 08/10/2015; Note: Verbal order from Dr. James RomeroPT (PROTHROMBIN TIME) ([facility]) ([id number]); Ordered: 08/10/2015; Note: Verbal order from Dr. James Romero Advance Directives Encounters Review On 25-Jul-2015 Encounter Reason: Finger nail problems - The onset of the finger nail problems has been gradual (3 months) and they have been occurring in a persistent pattern for 3 months. The course has been increasing. The finger kinjal 14:41 l problems are described as severe. Note for "Finger nail problems": He continues with his usual medications.[facility] Lab entry only - Encounter for long-term (current) use of anticoagulants ( V58.61 | Z79.01) On 07-Jul-2015 [facility] 16:55 to 16:56 Office Visit - Benign [...] the stairs and I have to crawl. [facility] Historical Summary On [facility] 12:33 to 12:36 Lab entry only - Encounter for long-term (current) use of anticoagulants ( V58.61 | Z79.01) On [facility] 17:37 to 17:39 Lab entry only - Elevated PSA (790.93) On [facility] 10:10 to 10:11 Lab entry only - Encounter for long-term (current) use of anticoagulants ( V58.61 | Z79.01), Encounter for long-term (current) use of anticoagulants ( V58.61 | Z79.01) On 14-Jan-2015 [facility] 14:52 to 14:53 Lab entry only - Encounter for long-term (current) use of anticoagulants ( V58.61 | Z79.01), Encounter for long-term (current) use of anticoagulants ( V58.61 | Z79.01) On 29-Nov-2014 [facility] 12:31 to 15:09 Medication Entry - Diabetes mellitus (250.00 | E11.9) On 12-Nov-2014 [facility] 11:46 to 11:53 Medication Entry - Cellulitis, leg (682.6 | L03.119) On 11-Nov-2014 [facility] 09:48 to 10:00 Office Visit - [...] "Transition into care": He feels things are improved.[facility] Historical Summary On 27-Oct-2014 [facility] 15:03 to 15:08 Lab entry only - Fibrillation, atrial (427.31), Encounter for long-term ( current) use of anticoagulants (V58.61 | Z79.01) On 18-Oct-2014 [facility] 17:08 to 17:09 Medication Entry - Gout (274.9 | M10.9) On 12-Oct-2014 [facility] 16:17 to 16:22 Lab entry only - Encounter for long-term (current) use of anticoagulants ( V58.61 | Z79.01) On 21-Sep-2014 [facility] 15:31 to 15:33 Radiology Visit - Carotid stenosis (433.10 | I65.29) On 14-Sep-2014 [facility] 09:33 to 09:36 Lab entry only - Encounter for long-term (current) use of anticoagulants ( V58.61 | Z79.01) On 24-Aug-2014 [facility] 16:31 to 16:34 Office Visit - Health education (V65.40 | Z71.9), Prevnar (PCV13)FOR MEDICARE USE ONLY Pneumovax injection (V03.82) 59046, Encounter for long-term ( current) use of [...] lifeline screening. He mentions the "discoloration" of ankles.[facility] Historical Summary On 11-Aug-2014 [facility] 16:16 to 16:19 Lab entry only - Fibrillation, atrial (427.31), Encounter for long-term ( current) use of anticoagulants (V58.61 | Z79.01) On 06-Aug-2014 [facility] 16:41 to 16:43 Medication Entry - Benign essential hypertension (401.1 | I10) On 21-Jun-2014 [facility] 11:12 to 11:14 Lab entry only - Encounter for long-term (current) use of anticoagulants ( V58.61 | Z79.01) On 03-Jun-2014 [facility] 16:13 to 16:15 Lab entry only - Encounter for long-term (current) use of anticoagulants ( V58.61 | Z79.01) On [facility] 13:22 to 13:23 Lab entry only - Elevated PSA (790.93), Encounter for long-term (current) use of anticoagulants (V58.61 | Z79.01) On [facility] 14:27 to 14:28 Office Visit - [...] thing in the morning and on stairs. [facility] Historical Summary On 28-Dec-2013 [facility] 12:26 to 12:29 Medication Entry - Encounter for long-term (current) use of anticoagulants ( V58.61 | Z79.01), Diabetes mellitus (250.00 | E11.9), Fibrillation, atrial ( 427.31) On 03-Nov-2013 [facility] 09:01 to 11:53 Medication Entry - Fibrillation, atrial (427.31), Diabetes mellitus (250.00 | E11.9) On 30-Oct-2013 [facility] 15:55 to 16:00 Lab entry only - Encounter for long-term (current) use of anticoagulants ( V58.61 | Z79.01) On 27-Oct-2013 [facility] 17:57 to 17:59 Office Visit - [...] M.D. after being in the hospital at [facility] on 10/16/13 & discharged on 10/17/13 dx jasmeet jamisonleif stone, inr was done prior to visit.) . Note for "Transition into care": He passed a kidney stone a week ago.[facility] Historical Summary On 23-Oct-2013 [facility] 14:42 to 14:45 Lab entry only - Encounter for long-term (current) use of anticoagulants ( V58.61 | Z79.01) On 20-Oct-2013 [facility] 16:31 to 16:33 Lab entry only - Encounter for long-term (current) use of anticoagulants ( V58.61 | Z79.01) On 16-Sep-2013 [facility] 10:14 to 10:15 Lab entry only - Elevated PSA (790.93) On 15-Sep-2013 [facility] 11:11 to 11:12 Lab entry only - Encounter for long-term (current) use of anticoagulants ( V58.61 | Z79.01) On 07-Aug-2013 [facility] 14:32 to 14:33 Lab entry only - Benign essential hypertension (401.1 | I10), Diabetes mellitus (250.00 | E11.9) On 07-Aug-2013 [facility] 11:18 to 11:19 Lab entry only - Encounter for long-term (current) use of anticoagulants ( V58.61 | Z79.01) On 01-May-2013 [facility] 10:33 to 10:38 Office Visit - [...] He did miss some meds while he traveled.[facility] Historical Summary On 29-Apr-2013 [facility] 11:46 to 11:49 Lab entry only - Encounter for long-term (current) use of anticoagulants ( V58.61 | Z79.01) On [facility] 16:39 to 16:42 Lab entry only - Encounter for long-term (current) use of anticoagulants ( V58.61 | Z79.01) On [facility] 19:40 to 19:42 Lab entry only - Elevated PSA (790.93) On [facility] 12:03 to 12:07 Office Visit - [...] for "Cough": He has not had an antibiotic.[facility] Lab entry only - Encounter for long-term (current) use of anticoagulants ( V58.61 | Z79.01) On 16-Dec-2012 [facility] 18:21 to 18:23 Lab entry only - Encounter for long-term (current) use of anticoagulants ( V58.61 | Z79.01) On 27-Nov-2012 [facility] 16:52 to 16:53 Lab entry only - Encounter for long-term (current) use of anticoagulants ( V58.61) On 26-Nov-2012 [facility] 15:04 to 15:05 Office Visit - [...] first thing in the morning and on stairs.[facility] Historical Summary On 29-Oct-2012 [facility] 16:15 to 16:17 Lab entry only - Encounter for long-term (current) use of anticoagulants ( V58.61) On 15-Oct-2012 [facility] 09:51 to 09:57 Lab entry only - Encounter for long-term (current) use of anticoagulants ( V58.61), Elevated PSA (790.93) On 14-Oct-2012 [facility] 10:25 to 10:26 Lab entry only - Encounter for long-term (current) use of anticoagulants ( V58.61) On 12-Sep-2012 [facility] 13:44 to 13:45 Medication Entry - Edema (782.3), Fibrillation, atrial (427.31) On 20-Aug-2012 [facility] 11:10 to 11:12 Medication Entry - Fibrillation, atrial (427.31), Edema (782.3) On 19-Aug-2012 [facility] 17:29 to 18:11 Medication Entry - Encounter for long-term (current) use of anticoagulants ( V58.61), Fibrillation, atrial (427.31), Diabetes mellitus (250.00) On 2011 [facility] 17:44 to 17:53 Office Visit - 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), Inflamed seborrheic keratosis (702.11), Hyperglycemia (790.29), Encounter for long-term (current) use of anticoagulants (V58.61), Fibrillation, atrial (427.31) On 01-Aug-2012 Encounter Reason: Follow up for chronic condition - The patient feels well with minor complaints (here today for a 3 month follow up with Dr. Romero ) .[facility] 09:34 to 10:39 Medication Entry - Encounter for long-term (current) use of anticoagulants ( V58.61) On 31-Jul-2012 [facility] 18:21 to 18:22 Historical Summary On 31-Jul-2012 [facility] 11:40 to 11:42 Lab entry only - Encounter for long-term (current) use of anticoagulants ( V58.61) On 23-Jun-2012 [facility] 18:47 to 18:52 Lab entry only - Elevated PSA (790.93), Encounter for long-term (current) use of anticoagulants (V58.61) On 23-Jun-2012 [facility] 15:48 to 15:53 Office Visit - Adjustment disorder with depressed mood (309.0), Encounter for long-term (current) use of anticoagulants (V58.61), Elevated PSA (790.93) On Encounter Reason: Follow up for chronic condition - The patient feels well with minor complaints (here for a 6 week follow up visit do to a new medication but did not start the medication).[facility] 11:19 to 13: 39 Historical Summary On 30-Apr-2012 [facility] 11:50 to 11:52 Lab entry only - Encounter for long-term (current) use of anticoagulants ( V58.61) On 28-Apr-2012 [facility] 17:23 to 17:26 Lab entry only - Elevated PSA (790.93), Encounter for long-term (current) use of anticoagulants (V58.61) On 28-Apr-2012 [facility] 14:19 to 14:22 Office Visit - [...] , had lab done prior to appt today).[facility] Lab entry only - Edema (782.3), Hyperglycemia (790.29), Encounter for long- term (current) use of anticoagulants (V58.61) On [facility] 11:06 to 11:14 Lab entry only - Elevated PSA (790.93), Fibrillation, atrial (427.31), Edema ( 782.3) On [facility] 09:02 to 09:05 Lab entry only - Encounter for long-term (current) use of anticoagulants ( V58.61) On [facility] 16:44 to 16:45 Medication Entry On 26-Oct-2011 [facility] 13:30 to 13:32 Lab entry only - Elevated PSA (790.93) On 23-Oct-2011 [facility] 11:01 to 11:04 Lab entry only - Encounter for long-term (current) use of anticoagulants ( V58.61), Low testosterone (257.2) On 17-Oct-2011 [facility] 10:15 to 10:17 Medication Entry - Fibrillation, atrial (427.31) On 04-Oct-2011 [facility] 09:26 to 09:38 Medication Entry - Fibrillation, atrial (427.31), Edema (782.3), Encounter for long-term (current) use of anticoagulants (V58.61), Benign prostatic hypertrophy without lower urinary tract symptoms (LUTS) (600.00) On 02-Oct-2011 [facility] 18:56 to 19:02 Medication Entry - Encounter for long-term (current) use of anticoagulants ( V58.61), Fibrillation, atrial (427.31), Edema (782.3) On 26-Sep-2011 [facility] 11:06 to 11:11 Medication Entry - Fibrillation, atrial (427.31), Encounter for long-term ( current) use of anticoagulants (V58.61) On 24-Sep-2011 [facility] 10:41 to 10:49 Lab entry only - Low testosterone (257.2) On 10-Aug-2011 [facility] 13:03 to 13:05 Lab entry only - Hyperglycemia (790.29), Encounter for long-term (current) use of anticoagulants (V58.61), Fibrillation, atrial (427.31) On 08-Aug-2011 [facility] 13:27 to 13:29 Office Visit - [...] he 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." [facility] Historical Summary On 06-Aug-2011 [facility] 12:22 to 12:24 Medication Entry - Fibrillation, atrial (427.31) On 05-Jun-2011 [facility] 08:54 to 08:59 Lab entry only - Encounter for long-term (current) use of anticoagulants ( V58.61) On 15-May-2011 [facility] 18:48 to 18:50 Office Visit - [...] up is diabetes, hypertension, cardiovascular disorder and other.[facility] Medication Entry - Benign prostatic hypertrophy without lower urinary tract symptoms (LUTS) (600.00) On 19-Apr-2011 [facility] 08:49 to 08:51 Lab entry only - Benign prostatic hypertrophy without lower urinary tract symptoms (LUTS) (600.00) On 10-Apr-2011 [facility] 15:15 to 15:19 Office Visit - [...] seeing dr. boswell the middle of apr.). [facility] Historical Summary On [facility] 16:05 to 16:18 Lab entry only - Encounter for long-term (current) use of anticoagulants ( V58.61) On [facility] 17:34 to 17:36 Lab entry only - Encounter for long-term (current) use of anticoagulants ( V58.61), Elevated PSA (790.93) On [facility] 09:42 to 09:43 Lab entry only - Encounter for long-term (current) use of anticoagulants ( V58.61) On 24-Nov-2010 [facility] 08:55 to 08:57 Lab entry only - Encounter for long-term (current) use of anticoagulants ( V58.61) On 20-Oct-2010 [facility] 14:42 to 14:46 Historical Summary - Encounter for long-term (current) use of anticoagulants ( V58.61) On 13-Sep-2010 [facility] 10:53 to 10:59 Historical Summary 12-Sep-2010 to 13-Sep-2010 [facility] Lab entry only - Encounter for long-term (current) use of anticoagulants ( V58.61) On 14-Aug-2010 [facility] 17:44 to 17:49 Historical Summary - Elevated PSA (790.93) 09-Aug-2010 to 15-Aug-2010 [facility] Lab entry only - Encounter for long-term (current) use of anticoagulants ( V58.61) 27-Jun-2010 to 28-Jun-2010 [facility] Lab entry only - Encounter for long-term (current) use of anticoagulants ( V58.61) On 26-Jun-2010 [facility] 16:21 to 22:23 Insurance Vijay Yuan; a guarantorMedicare WPSReserve National [facility] Hospitalate Farm InsuranceCVS/[place]
--- OUTSIDE RECORDS SUMMARY | 2017-10-22 17:41 | External Medical Summary | Continuity of Care Document ---
:1940 Author Organization [facility] Address [address] [place] [address] Phone Care Team Providers Name Role Phone James Romero MD Primary Care Provider James Romero MD Unavailable Hema Boswell Consulting Provider Unavailable Unavailable Problems Name Dates Details Adjustment [...] days Quantity: 90 {Capsule} Refills: 4 Ordered:03-Nov-2013 GarretDayorickey Start 03-Nov-2013 Active ELIQUIS, 5MG (Oral Tablet) [...] days Quantity: 90 {Tablet} Refills: 4 Ordered:21-Jun-2014 Garret Dayorickey Start 21-Jun-2014 Active METFORMIN HCL, 500MG (Oral Tablet) 1 Tablet daily for 90 days Quantity: 90 {Tablet} Refills: 4 Ordered:03-Nov-2013 Garret Dayorickey Start 03-Nov-2013 Active BACTRIM DS, 800-160MG (Oral Tablet) 1 (one) Tablet two times daily for 10 days Quantity: 20 {Tablet} Refills: 0 Ordered:11-Nov-2014 Garret Dayorickey Start 11-Nov-2014 End 21-Nov-2014 Inactive BACTRIM DS, 800-160MG (Oral Tablet) 1 two times daily (800-160 MG) Inactive Comments:04-30-[address] elbert TURNER, 500MG (Oral Tablet) 1 two times daily (500 MG) Inactive Comments:started on 10/17/13 after being dismissed from [facility] for kidney stone by gale CITALOPRAM HYDROBROMIDE, [...] dx kidney stone from being discharged from [facility] PROMETHAZINE-DM, 6.25-15MG/5ML (Oral Syrup) 1-2 tsp Syrup [...] Start 12-Nov-2014 End 25-Jul-2015 Inactive Comments:dx 250.00 WARFARIN SODIUM, 5MG (Oral Tablet) one Tablet 5mg for one day then 7.5mg for 2 days then repeat cycle for 90 days Quantity: 135 {Tablet} Refills: 4 Ordered:01-Nov-2015 Faby Torres Start 08-Dec-2012 End 01-Nov-2015 Inactive ZITHROMAX, 250MG (Oral Tablet) 2, then [...] BL DRAW < 3 YRS Ordered:28-Oct-2015 FEM/JUGULAR ([id number]) Follow up in 6 months Ordered:27-Oct-2015 How to access health information Completed:27-Jul-2015 online Skin Conditions Completed:27-Jul-2015 Follow up in 2 weeks Ordered:27-Jul-2015 HIGH DOSE QUADRIVALENT INFLUENZA Ordered:25-Jul-2015 VACCINE (35740) ADMINISTRATION OF INFLUENZA VIRUS Ordered:25-Jul-2015 VACCINE ([id number]) Follow up in 3 months Ordered:25-Jul-2015 Follow up in 4 months Ordered: X-RAY EXAM OF KNEE, 1 OR 2 VIEWS Completed: Comments: right (38174) X-RAY EXAM OF BOTH KNEES, Completed: STANDING (68444) How to access health information Completed: online Follow up - Keep appt as scheduled Ordered:28-Oct-2014 CAROTID BILATERAL US ([id number]) Completed:14-Sep-2014 Comments: Verbal order from Dr. James Romero Follow up in 6 months Ordered:12-Aug-2014 PREVNAR 13 VALENT PNEUMOCOCCAL Completed:12-Aug-2014 VACCINE ([id number]) ADMINISTRATION OF PNEUMOCOCCAL Ordered:12-Aug-2014 CONJUGATE VACCINE (G0009) How to access health information Completed:12-Aug-2014 online Follow up in 6 months Ordered: Follow up in 2 months Ordered:26-Oct-2013 ADMIN INFLUENZA VIRUS VAC: FLU VACC Completed:26-Oct-2013 PRSV FREE INC ANTIG (90166) ADMINISTRATION OF INFLUENZA VIRUS Ordered:26-Oct-2013 VACCINE (G0008) Follow up in 6 months Ordered:30-Apr-2013 Follow up - Keep appt as scheduled Ordered:02-Jan-2013 Follow up in 6 months Ordered:30-Oct-2012 Follow up in 3 months Ordered:01-Aug-2012 Follow up in 3 months Ordered:01-May-2012 Follow up in 6 weeks Ordered: ADMINISTRATION OF INFLUENZA VIRUS Ordered:14-May-2011 VACCINE (G0008) FLU VACC PRSV FREE INC ANTIG Completed:14-May-2011 (88612) Follow up in 2 months Ordered:14-May-2011 Follow up in 2 months Ordered: Annual Eye Exam Completed:22-Nov-2008 Colonoscopy, Screening Completed: Colonoscopy, Screening Completed:06-Oct-2014 Flu Vaccine Completed:26-Oct-2013 Flu Vaccine Completed:06-Jun-2012 Comments: [facility] Flu Vaccine Completed:14-May-2011 Comments: high dose Flu [...] Site: Deltoid (Left); high dose Lot #: [id number] Influenza, preserv. free, enhanced immunogncty, IM Administered on:2013 Comments: Site: Deltoid (Left) Lot #: [id number] Pneumococcal conjugate vaccine, 13 valent, IM Administered on:12-Aug-2014 Comments: Site: Deltoid (Left) Lot #: [id number] Social History Name Dates Details Tobacco use: [...] Comments: The left neck Final 10:36 SINGLE (57281) lesion was removed and also the left [...] not sent to pathology. 10:35 PUNCH BIOPSY (92732) Comments: After Final FIRST BIOPSY cleansing the [...] patient have a artifical heart valve? No ([facility]) (03092) 9. day Dosage Repeat mg (Normal) 8. Joao Dosage [...] Charge[i], Protime & INR, PSA 16:21 ANTIGEN) (92048) PSA 6.00 ng/mL (Abnormal) Range: 0.00-4.00 16:21 PT (PROTHROMBIN TIME) Comments: Does patient have a artifical heart valve? No ([facility]) (24648) 8. Saturday Dosage 5.0 mg (Normal) 9. Saturday Dosage 7.5 mg (Normal) 6. Saturday Dosage 7.5 mg (Normal) 7. Dosage 7.5 mg (Normal) 5. Saturday Dosage 5.0 mg (Normal) 4. Saturday Dosage 7.5 mg (Normal) 3. Saturday Dosage 7.5 mg (Normal) INR 2.21 (Normal) PT 24.2 s (Abnormal) Range: 9.3-11.7 16:21 Routine Venipuncture (93820) Draw Drawn (Normal) 25-Oct-2015 URIC ACID BLOOD (43745) Comments: Items in this order include : CBC, Comprehensive Metabolic Panel, CKI, Hemoglobin A1C, Uric Acid, Draw Charge[i] 11:21 Uric Acid 5.5 mg/dL (Normal) Range: 3.5-7.2 11:21 HEMOGLOBIN GLYCLATED (HGB A1C) (61107) A1C 6.2 % (Normal) Range: 4.6-6.2 Comments: High risk of diabetes. 11:21 CK (36719) Comments: Items in this order include: CBC, Comprehensive Metabolic Panel, CKI, Hemoglobin A1C, Uric Acid, Draw Charge[i] CKI 288 U/L (Normal) Range: 39-308 11:21 CMP (44214) Comments: Items in this order include: CBC, [...] 135-145 11:21 CBC MALE- ORDER THIS ONE! (42253) manual diff Not Indicated (Normal) mpv 9.80 [...] have a artifical heart valve? No 15:06 ([facility]) (11563) 9. Saturday Dosage 7.5 mg (Normal) 8. [...] order include: Draw Charge[i], Protime & INR (20048) Draw Drawn (Normal) [facility] (88563) Comments: Items in this order include: Basic [...] include: A COPY TO [kyung], PSA ANTIGEN) (85433) PSA 6.55 ng/mL (Abnormal) Range: 0.00-4.00 09:[address] Boswell Comments: A copy of this report will be faxed to: Bettie Boswell in this order include: A COPY TO [kyung], PSA Ordering Doctor . (Normal) 09:15 PT (PROTHROMBIN TIME) Comments: Items in this order include: Draw Charge[i], Protime & INRDolynn patient have a artifical heart valve? No ([facility]) (36481) 8. Saturday Dosage 7.5 mg (Normal) 9. [...] order include: Draw Charge[i], Protime & INR (96357) Draw Drawn (Normal) 14-Jan-2015 PT (PROTHROMBIN TIME) Comments: Items in this order include: Draw Charge[i], Protime & INRDoes patient have a artifical heart valve? No 09:28 ([facility]) (52440) 9. Saturday Dosage 5.0 mg (Normal) 7. [...] order include: Draw Charge[i], Protime & INR (90176) Draw Drawn (Normal) 28-Oct-2014 PT (PROTHROMBIN TIME) Comments: Items in this order include: Draw Charge[i], Protime & INRDoes patient have a artifical heart valve? No 10:48 ([facility]) (66190) 9. Saturday Dosage 7.5 mg (Normal) 8. [...] order include: Draw Charge[i], Protime & INR (71809) Draw Drawn (Normal) 29-Nov-2014 PT (PROTHROMBIN TIME) Comments: Items in this order include: Draw Charge[i], Protime & INRDoes patient have a artifical heart valve? No 10:28 ([facility]) (91199) 9. Saturday Dosage 5.0 mg (Normal) 8. [...] order include: Draw Charge[i], Protime & INR (69409) Draw Drawn (Normal) 21-Sep-2014 PT (PROTHROMBIN TIME) Comments: Items in this order include: Draw Charge[i], Protime & INRLily patient have a artifical heart valve? No 10:08 ([facility]) (93803) 9. Saturday Dosage 5.0 mg (Normal) 7. [...] order include: Draw Charge[i], Protime & INR (99017) Draw Drawn (Normal) 24-Aug-2014 Routine Venipuncture Comments: Items in this order include: Protime & INR, Draw Charge[i] 09:59 (19745) Draw Drawn (Normal) 09:59 PT (PROTHROMBIN TIME) Comments: Items in this order include: Protime & INR, Draw Charge[i]INR value > 3.0 given to Estella by Beny Buckley patient have a artifical heart valve? No ([facility]) (70286) 9. Saturday Dosage 7.5 mg (Normal) 7. [...] Panel, Hemoglobin A1C, Urine Microalbumin, CBC ONE! (63749) manual diff Not Indicated (Normal) mpv 9.60 [...] Metabolic Panel, Hemoglobin A1C, Urine Microalbumin, CBC (57692) U A:C RATIO <30 mg/g Normal Range: <30 mg/g Normal (Normal) U CREAT 200 mg/dL (Normal) Range: 10-300 U ALB 80 mg/L (Abnormal) Range: 10 mg/L 09:59 HEMOGLOBIN GLYCLATED Comments: Items in this order include: Digoxin , PSA, Basic Metabolic Panel, Hemoglobin A1C, Urine Microalbumin, CBC (HGB A1C) (55931) A1C 5.9 % (Normal) Range: 4.6-6.2 Comments: Increased risk of diabetes. 09:59 [facility] (00574) Comments: Items in this order include: Digoxin, [...] Panel, Hemoglobin A1C, Urine Microalbumin, CBC ANTIGEN) (28002) PSA 7.11 ng/mL (Abnormal) Range: 0.00-4.00 09:59 DIGOXIN (29752) Comments: Items in this order include: Digoxin, PSA , Basic Metabolic Panel, Hemoglobin A1C, Urine Microalbumin, CBCTime of Last Dose? 08/23/2014 8:00 AMDosage? 0.25 DIG 0.36 ng/mL (Abnormal) Range: 0.90-2.00 05-Aug-2014 PT (PROTHROMBIN TIME) Comments: Items in this order include: Draw Charge[i], Protime & INRDoes patient have a artifical heart valve? No 10:48 ([facility]) (41080) 8. Joao Dosage 7.5 mg (Normal) 9. Saturday Dosage 5.0 mg (Normal) 6. Saturday Dosage 7.5 mg (Normal) 7. Dosage 5.0 mg (Normal) 5. Saturday Dosage 5.0 mg (Normal) 4. Saturday Dosage 7.5 mg (Normal) 3. Saturday Dosage 5.0 mg (Normal) INR 1.11 (Normal) PT 11.5 s (Normal) Range: 9.3-11.7 10:48 Routine Venipuncture Comments: Items in this order include: Draw Charge[i], Protime & INR (51848) Draw Drawn (Normal) 03-Jun-2014 PT (PROTHROMBIN TIME) Comments: Items in this order include: Draw Charge[i], Protime & INRDoes patient have a artifical heart valve? No 13:56 ([facility]) (23624) 9. Saturday Dosage 7.5 mg (Normal) 8. [...] order include: Draw Charge[i], Protime & INR (04220) Draw Drawn (Normal) PT (PROTHROMBIN TIME) Comments: Items in this order include: Protime & INRDoes patient have a artifical heart valve? No 14:25 ([facility]) (51788) 9. day Dosage 5.0 mg (Normal) 8. [...] this order include: Draw Charge[i], PSA ANTIGEN) (83330) PSA 6.15 ng/mL (Abnormal) Range: 0.00-4.00 14:25 Routine Venipuncture Comments: A copy of this report will be faxed to: Bettie Boswell in this order include: Draw Charge[i], PSA (93961) Draw Drawn (Normal) HEMOGLOBIN GLYCLATED Comments: Items in this order include: Hemoglobin A1C, Draw Charge[i], Comprehensive Metabolic Panel, Uric Acid 15:06 (HGB A1C) (47664) A1C 5.7 % (Normal) Range: 4.6-6.2 15:06 CMP (00900) Comments: Items in this order include: Hemoglobin [...] (Normal) Range: 135-145 15:06 URIC ACID BLOOD (27321) Comments: Items in this order include: Hemoglobin A1C, Draw Charge[i], Comprehensive Metabolic Panel, Uric Acid Uric Acid 8.0 mg/dL (Abnormal) Range: 3.6-7.7 15:06 Routine Venipuncture Comments: Items in this order include: Hemoglobin A1C, Draw Charge[i], Comprehensive Metabolic Panel, Uric Acid (05216) Draw Drawn (Normal) PT (PROTHROMBIN TIME) Comments: Items in this order include: Draw Charge[i], Protime & INRDoes patient have a artifical heart valve? No 14:27 ([facility]) (33727) 8. Saturday Dosage 5.0 mg (Normal) 9. [...] order include: Draw Charge[i], Protime & INR (35754) Draw Drawn (Normal) 26-Oct-2013 Draw Charge[i] Comments: Items in this order include: Basic Metabolic Panel, Draw Charge[i] 17:08 Draw Drawn (Normal) 17:05 [facility] (48831) Comments: Items in this order include: Basic [...] patient have a artifical heart valve? No ([facility]) (72041) 9. Saturday Dosage 5.0 mg (Normal) 7. [...] order include: Draw Charge[i], Protime & INR (78324) Draw Drawn (Normal) 15-Sep-2013 PSA (PROSTATE SPECIFIC Comments: A copy of this report will be faxed to: Bettie Boswell in this order include: A COPY TO [kyung] PSAPSA allowed more than once a year due to being a Diagonistic PSA not a screening PSA 11:05 ANTIGEN) (03640) PSA 5.40 ng/mL (Abnormal) Range: 0.00-4.00 11:05 [...] this order include: Comprehensive Metabolic Panel, Hemoglobin [id number] Hgb A1C was ran 99 Days ago. Check by MARGARITA 10:38 (HGB A1C) (56923) A1C 5.9 % (Normal) Range: 4.6-6.2 Comments: Increased risk of diabetes. 10:38 [facility] (75587) Comments: Items in this order include: Comprehensive Metabolic Panel, Hemoglobin D0DTful Hgb A1C was ran 99 Days ago. [...] patient have a artifical heart valve? No ([facility]) (52460) 9. Saturday Dosage 5.0 (cycle of 5,5,7.5 [...] order include: Draw Charge[i], Protime & INR (13716) Draw Drawn (Normal) 10:38 DIGOXIN (46003) Comments: Items in this order include: DigoxinTime of Last Dose? 08/06/2013 8:30 AMDosage? 0.25 mg daily DIG 0.48 ng/mL (Abnormal) Range: 0.90-2.00 30-Apr-2013 HEMOGLOBIN GLYCLATED Comments: Items in this order include: Comprehensive Metabolic Panel, CBC, Hemoglobin T3MOaxf Hgb A1C was ran 225 Days ago. Check by ms 11:58 (HGB A1C) (12469) A1C 6.1 % (Normal) Range: 4.6-6.2 11:58 CBC MALE- ORDER THIS Comments: Items in this order include: Comprehensive Metabolic Panel, CBC, Hemoglobin R2NLwie Hgb A1C was ran 225 Days ago. Check by ms ONE! (30014) manual diff Not Indicated (Normal) mpv 4.88 [...] 6.15 10*3/uL (Normal) Range: 4.50-10.50 11:58 CMP (00714) Comments: Items in this order include: Comprehensive Metabolic Panel, CBC, Hemoglobin L9NErsm Hgb A1C was ran 225 Days ago. [...] patient have a artifical heart valve? No ([facility]) (11340) 4. Saturday Dosage Repeat mg (Normal) 3. Saturday Dosage 7.5 mg (Normal) 2. Saturday Dosage 5.0 mg (Normal) 1. Saturday Dosage 5.0 mg (Normal) INR 2.60 (Normal) PT 26.8 s (Abnormal) Range: 10.4-12.4 -March-2013 PT (PROTHROMBIN TIME) Comments: Items in this order include: Draw Charge[i], Protime & INRDoes patient have a artifical heart valve? No 15:12 ([facility]) (39664) 5. Dosage Repeat mg (Normal) 4. Saturday Dosage 5.0 mg (Normal) 3. Saturday Dosage 5.0 mg (Normal) 2. Saturday Dosage 7.5 mg (Normal) INR 2.31 (Normal) PT 24.0 s (Abnormal) Range: 10.4-12.4 15:12 Routine Venipuncture Comments: Items in this order include: Draw Charge[i], Protime & INR (54786) Draw Drawn (Normal) PSA (PROSTATE SPECIFIC Comments: A copy of this report will be faxed to: Bettie Boswell in this order include: PSA, Draw Charge[i]PSA allowed more than once a year due to being a Diagonistic PSA not a screening PSA 10:00 ANTIGEN) (05382) PSA 5.60 ng/mL (Abnormal) Range: 0.00-4.00 10:00 [...] patient have a artifical heart valve? No ([facility]) (78846) 3. Saturday Dosage Repeat mg (Normal) 2. Saturday Dosage 7.5 mg (Normal) 1. Saturday Dosage 5.0 mg (Normal) INR 2.64 (Normal) PT 27.2 s (Abnormal) Range: 10.4-12.4 10:09 Routine Venipuncture Comments: Items in this order include: Draw Charge[i], Protime & INR (88622) Draw Drawn (Normal) 16-Dec-2012 PT (PROTHROMBIN TIME) Comments: Items in this order include: Draw Charge[i], Protime & INRDoes patient have a artifical heart valve? No 10:46 (Duroline) (32199) 4. Saturday Dosage Repeat mg (Normal) 3. Saturday Dosage 5.0 mg (Normal) 2. Saturday Dosage 7.5 mg (Normal) INR 2.13 (Normal) PT 22.2 s (Abnormal) Range: 10.4-12.4 10:46 Routine Venipuncture Comments: Items in this order include: Draw Charge[i], Protime & INR (03160) Draw Drawn (Normal) 26-Nov-2012 Routine Venipuncture Comments: Items in this order include: Protime & INR, Draw Charge[i] 15:05 (38788) Draw Drawn (Normal) 15:05 PT (PROTHROMBIN TIME) Comments: Items in this order include: Protime & INR, Draw Charge[i]Does patient have a artifical heart valve? No ([facility]) (25589) 4. Saturday Dosage 5.0 Repeat mg (Normal) 3. Saturday Dosage 5.0 mg (Normal) 2. Saturday Dosage 7.5 mg (Normal) INR 1.34 (Normal) PT 14.4 s (Abnormal) Range: 10.4-12.4 30-Oct-2012 PT (PROTHROMBIN TIME) Comments: Items in this order include: Draw Charge[i], Protime & INRINR value > 3.0 given to BW by Froy Chávez patient have a artifical heart valve? No 10:38 ([facility]) (98713) 7. Saturday Dosage 7.5 mg (Normal) 6. [...] order include: Draw Charge[i], Protime & INR (58083) Draw Drawn (Normal) 11:33 BMP Comments: Items [...] Dose? 10/29/2012 8:00 PMDosage? 0.25 mg Daily (44761) DIG 1.64 ng/mL (Normal) Range: 0.90-2.00 14-Oct-2012 PSA (PROSTATE SPECIFIC Comments: A copy of this report will be faxed to: Bettie Boswell in this order include: Draw Charge[i], Protime & INR, PSAPSA allowed more than once a year due to being a Diagonistic PSA not a screening PSA 10:25 ANTIGEN) (36591) PSA 8.11 ng/mL (Abnormal) Range: 0.00-4.00 10:25 PT (PROTHROMBIN TIME) Comments: PSA allowed more than once a year due to being a Diagonistic PSA not a screening PSACoumadin dosage=5,5,5,5,7.5 repeatDoes patient have a artifical heart valve? No ([facility]) (58487) 7. Saturday Dosage 7.5 mg (Normal) 6. [...] a Diagonistic PSA not a screening PSA (73258) Draw Drawn (Normal) 12-Sep-2012 PT (PROTHROMBIN TIME) Comments: Items in this order include: Draw Charge[i], Protime & INRDoes patient have a artifical heart valve? No 09:16 ([facility]) (23118) 6. Saturday Dosage Repeat mg (Normal) 5. Dosage 7.5 mg (Normal) 4. Saturday Dosage 5.0 mg (Normal) 3. Saturday Dosage 5.0 mg (Normal) 2. Saturday Dosage 5.0 mg (Normal) 1. Saturday Dosage 5.0 mg (Normal) INR 2.48 (Normal) PT 25.7 s (Abnormal) Range: 10.4-12.4 09:16 Routine Venipuncture Comments: Items in this order include: Draw Charge[i], Protime & INR (63385) Draw Drawn (Normal) 18-Aug-2012 PT (PROTHROMBIN TIME) Comments: Items in this order include: Protime & INRDolynn patient have a artifical heart valve? No 11:44 ([facility]) (69593) 7. Saturday Dosage 5.0 mg (Normal) 6. [...] Days ago. Check by KB (HGB A1C) (85886) A1C 6.2 % (Normal) Range: 4.6-6.2 Comments: High risk of diabetes. 31-Jul-2012 PT (PROTHROMBIN TIME) Comments: Items in this order include: Draw Charge[i], Protime & INRINR value > 3.0 given to Estella by Beny Buckley patient have a artifical heart valve? No 13:32 ([facility]) (42678) 7. day Dosage 5.0 mg (Normal) 6. [...] order include: Draw Charge[i], Protime & INR (32659) Draw Drawn (Normal) 23-Jun-2012 PSA (PROSTATE SPECIFIC Comments: A copy of this report will be faxed to: Bettie Boswell in this order include: Draw Charge[i], Protime & INR, PSAPSA allowed more than once a year due to being a Diagonistic PSA not a screening PSA 15:50 ANTIGEN) (99105) PSA 8.05 ng/mL (Abnormal) Range: 0.00-4.00 15:50 PT (PROTHROMBIN TIME) Comments: A copy of this report will be faxed to: Bettie Boswell in this order include: Draw Charge[i], Protime & INR , PSAPSA allowed more than once a year due to being a Diagonistic PSA not a screening ([facility]) (46257) PSADoes patient have a artifical heart valve? [...] a Diagonistic PSA not a screening PSA (47533) Draw Drawn (Normal) 13-May-2012 Draw Charge[i] Comments: [...] results to dr. hema boswell 14:28 ANTIGEN) (80180) PSA 16.45 ng/mL (Abnormal) Range: 0.00-4.00 14:28 PT (PROTHROMBIN TIME) Comments: Coumadin Dosage=5,5,5,7.5 Repeat. Took 7.5 on 04-27-12. ([facility]) (61696) 5. Dosage 7.5 Repeat mg (Normal) 4. Saturday Dosage 5.0 mg (Normal) 3. Saturday Dosage 5.0 mg (Normal) 2. Saturday Dosage 5.0 mg (Normal) 1. Saturday Dosage 7.5 mg (Normal) INR 2.17 (Normal) PT 22.7 s (Abnormal) Range: 10.4-12.4 14:28 Routine Venipuncture (82139) Draw Drawn (Normal) 13-May-2012 PSA (PROSTATE SPECIFIC Comments: A copy of this report will be faxed to: Bettie Boswell in this order include: PSA, Draw Charge[i]PSA allowed more than once a year due to being a Diagonistic PSA not a screening PSA 09:20 ANTIGEN) (74543) PSA 11.30 ng/mL (Abnormal) Range: 0.00-4.00 TSH (THYROID Comments: Items in this order include: TSH 16:40 STIMULATING HORMONE) (76289) TSH 1.36 uIU/ml (Normal) Range: 0.34-5.60 14:50 PT (PROTHROMBIN TIME) Comments: Items in this order include: Draw Charge[i], Basic Metabolic Panel, Hemoglobin A1C, Protime & INRLast Hbg A1C was ran 218 Days ago. Check by DL ([facility]) (25327) 5. Dosage Repeat mg (Normal) 4. Saturday [...] ran 218 Days ago. Check (HGB A1C) (46201) by DLplease draw enough blood so if [...] ran 218 Days ago. Check by DL (05264) Draw Drawn (Normal) DIGOXIN, DRUG ASSAY Comments: Items in this order include: CBC, Comprehensive Metabolic Panel, CKI, Digoxin, Draw Charge[i] 09:08 (68708) DIG 0.38 ng/mL (Abnormal) Range: 0.90-2.00 09:08 CK Comments: Items in this order include: CBC, Comprehensive Metabolic Panel, CKI, Digoxin, Draw Charge[i] CKI 143 U/L (Normal) Range: 39-308 09:08 CMP (39174) Comments: Items in this order include: CBC, [...] Metabolic Panel, CKI, Digoxin, Draw Charge[i] ONE! (80236) manual diff Not Indicated (Normal) mpv 6.84 [...] order include: Protime & INR, Draw Charge[i] (37851) Draw Drawn (Normal) 16:45 PT (PROTHROMBIN TIME) Comments: Items in this order include: Protime & INR, Draw Charge[i]Coumadin doasage=5,5,7.5 Repeat ([facility]) (51244) 7. Saturday Dosage 5.0 mg (Normal) 6. [...] order include: Draw Charge[i], PSA 11:11 ANTIGEN) (70173) PSA 6.92 ng/mL (Abnormal) Range: 0.00-4.00 11:11 Routine Venipuncture Comments: A copy of this report will be faxed to: Bettie Boswell in this order include: Draw Charge[i], PSA (07183) Draw Drawn (Normal) 17-Oct-2011 Routine Venipuncture 10:18 (64948) Draw Drawn (Normal) 10:18 TESTOSTERONE, FREE, Comments: Items in this order include: Protime & INR, Draw Charge[i], TESTOSTERONE, FREE, BIOAVAILABLE, AND TOTAL, LC/MS/ MSTesting performed at: [place], [address] [address] [place], [place], [address], Volunteer Patient Representative: Michael Chávez [facility] TOTAL, LC/MS/MS ALBUMIN,SERUM [...] and benefits counseling. 10:18 PT (PROTHROMBIN TIME) ([facility]) (93540) 7. Saturday Dosage 5.0 mg (Normal) 6. [...] Panel, Hemoglobin A1C, Draw Charge[i] (HGB A1C) (90873) A1C 6.1 % (Normal) Range: 4.6-6.2 13:29 [...] (Normal) Range: 135-145 13:29 DIGOXIN, DRUG ASSAY (93391) DIG 0.85 ng/mL (Abnormal) Range: 0.90-2.00 07-Aug-2011 TESTOSTERONE, FREE, Comments: Items in this order include: TESTOSTERONE, FREE, BIOAVAILABLE, AND TOTAL, LC/MS/MSTesting performed at: [place], [address] [address], [place] , [address], [place] 12:53 WEAKLY BOUND AND TOTAL ratory Director: Michael Chávez MD.[facility] (30523) ALBUMIN,SERUM 4.4 g/dL (Normal) Range: 3.6-5.1 SEX [...] INR, Draw Charge[i]no change in coumadin dose ([facility]) (41005) 7. Saturday Dosage 7.5 mg (Normal) 6. [...] Metabolic Panel, Protime & INR, Draw Charge[i] ([facility]) (28043) 7. Saturday Dosage 5.0 mg (Normal) 5. [...] Boswell in this order include: PSA ANTIGEN) (96952) PSA 5.95 ng/mL (Abnormal) Range: 0.00-4.00 CBC-MALE- ORDER THIS Comments: Items in this order include : Hemoglobin A1C, Comprehensive Metabolic Panel, CBC 11:56 ONE! (16344) manual diff Not Indicated (Normal) mpv 7.65 [...] 6.24 10*3/uL (Normal) Range: 4.50-10.50 11:56 CMP (20381) Comments: Items in this order include: Hemoglobin [...] this order include: Digoxin, Draw Charge[i] 15:17 (98477) DIG 1.18 ng/mL (Normal) Range: 0.90-2.00 HEMOGLOBIN GLYCLATED Comments: Items in this order include: Hemoglobin A1C, Comprehensive Metabolic Panel, CBC 11:56 (HGB A1C) (34123) A1C 6.6 % (Abnormal) Range: 4.6-6.2 Comments: Consistent with diabetes. 13:48 PT (PROTHROMBIN TIME) Comments: change to coumadin 5mg x 2 day then 7.5mg x1 repeat the cycle; Items in this order include: Protime & INR, Draw Charge[i]cyclechange to coumadin 5mg x 2 day then 7.5mg x1 repeat the ([facility]) (23124) 6. Saturday Dosage 7.5 mg (Normal) 7. [...] & INR, PSA, Draw Charge[i] 09:43 ANTIGEN) (82949) PSA 5.84 ng/mL (Abnormal) Range: 0.00-4.00 09:43 PT (PROTHROMBIN TIME) Comments: no change in coumadin; no change in coumadin ([facility]) (33692) 7. Saturday Dosage 7.5 mg (Normal) 6. Saturday Dosage 5.0 mg (Normal) 5. Dosage 7.5 mg (Normal) 4. Saturday Dosage 5.0 mg (Normal) 3. Saturday Dosage 5.0 mg (Normal) 1. Saturday Dosage 5.0 mg (Normal) 2. Saturday Dosage 7.5 mg (Normal) INR 3.45 (Normal) PT 32.9 s (Abnormal) Range: 10.4-12.4 23-Nov-2010 PT (PROTHROMBIN TIME) 10:03 ([facility] [place]) (46321) 6. Saturday Dosage 7.5 mg (Normal) 7. Saturday Dosage 5 mg (Normal) 1. Saturday Dosage 5 mg (Normal) 2. Saturday Dosage 7.5 mg (Normal) 3. Saturday Dosage 5 mg (Normal) 4. Saturday Dosage 7.5 mg (Normal) 5. Dosage 5 mg (Normal) INR 2.16 (Normal) PT 21.0 s (Abnormal) Range: 10.4-12.4 19-Oct-2010 PT (PROTHROMBIN TIME) 15:16 ([facility] [place]) (03322) 6. Saturday Dosage 5 mg (Normal) 7. Saturday Dosage 7.5 mg (Normal) 3. Saturday Dosage 7.5 mg (Normal) 4. Saturday Dosage 5 mg (Normal) 5. Dosage 7.5 mg (Normal) 1. Saturday Dosage 7.5 mg (Normal) 2. Saturday Dosage 5 mg (Normal) INR 2.13 (Normal) PT 20.7 s (Abnormal) Range: 10.4-12.4 12-Sep-2010 PT (PROTHROMBIN TIME) 11:03 ([facility] [place]) (24366) INR 2.57 (Normal) PT (PROTHROMBIN TIME) 24.8 s (Abnormal) Range: 11.5-13.5 22-Aug-2010 PT (PROTHROMBIN TIME) 13:41 ([facility] [place]) (13437) 09-Aug-2010 PSA, MEDICARE (G0103) Comments: please fax to dr hema boswell 09:54 PSA (Medicare) 4.83 ng/mL (Abnormal) Range: 0 - 4 09:34 PT (PROTHROMBIN TIME) ([facility] [place]) (11562) INR 2.68 (Normal) PT (PROTHROMBIN TIME) 25.8 s (Abnormal) Range: 11.5-13.5 27-Jun-2010 PT (PROTHROMBIN TIME) 08:38 ([facility] [place]) (29097) 26-Jun-2010 PT (PROTHROMBIN TIME) 16:21 ([facility] [place]) (47305) INR 1.89 (Normal) PT (PROTHROMBIN TIME) 18.4 s (Abnormal) Range: 11.5-13.5 Treatment Plan LIPID PANEL (37706); Ordered: 10/28/2015; Note: Verbal order from Dr. 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 He said he is having quite a bit of pain with the nodule and some occasional drainage. Seems to be recurrent for him. 09:10 to 09:52 [facility] Office Visit - PG (pyogenic granuloma) (686.1 [...] nail problems": He continues with his usual medications.[facility] Lab entry only - Encounter for long-term (current) use of anticoagulants ( V58.61 | Z79.01) On 07-Jul-2015 [facility] 16:55 to 16:56 Office Visit [...] the stairs and I have to crawl. [facility] Historical Summary On [facility] 12:33 to 12:36 Lab entry only - Encounter for long-term (current) use of anticoagulants ( V58.61 | Z79.01) On [facility] 17:37 to 17:39 Lab entry only - Elevated PSA (790.93) On [facility] 10:10 to 10:11 Lab entry only - Encounter for long-term (current) use of anticoagulants ( V58.61 | Z79.01), Encounter for long-term (current) use of anticoagulants ( V58.61 | Z79.01) On 14-Jan-2015 [facility] 14:52 to 14:53 Lab entry only - Encounter for long-term (current) use of anticoagulants ( V58.61 | Z79.01), Encounter for long-term (current) use of anticoagulants ( V58.61 | Z79.01) On 29-Nov-2014 [facility] 12:31 to 15:09 Medication Entry - Diabetes mellitus (250.00 | E11.9) On 12-Nov-2014 [facility] 11:46 to 11:53 Medication Entry - Cellulitis, leg (682.6 | L03.119) On 11-Nov-2014 [facility] 09:48 to 10:00 Office Visit [...] "Transition into care": He feels things are improved.[facility] Historical Summary On 27-Oct-2014 [facility] 15:03 to 15:08 Lab entry only - Fibrillation, atrial (427.31), Encounter for long-term ( current) use of anticoagulants (V58.61 | Z79.01) On 18-Oct-2014 [facility] 17:08 to 17:09 Medication Entry - Gout (274.9 | M10.9) On 12-Oct-2014 [facility] 16:17 to 16:22 Lab entry only - Encounter for long-term (current) use of anticoagulants ( V58.61 | Z79.01) On 21-Sep-2014 [facility] 15:31 to 15:33 Radiology Visit - Carotid stenosis (433.10 | I65.29) On 14-Sep-2014 [facility] 09:33 to 09:36 Lab entry only - Encounter for long-term (current) use of anticoagulants ( V58.61 | Z79.01) On 24-Aug-2014 [facility] 16:31 to 16:34 Office Visit - Health education (V65.40 | Z71.9), Prevnar (PCV13)FOR MEDICARE USE ONLY Pneumovax injection (V03.82) 35508, Encounter for long-term ( current) use of [...] lifeline screening. He mentions the "discoloration" of ankles.[facility] Historical Summary On 11-Aug-2014 [facility] 16:16 to 16:19 Lab entry only - Fibrillation, atrial (427.31), Encounter for long-term ( current) use of anticoagulants (V58.61 | Z79.01) On 06-Aug-2014 [facility] 16:41 to 16:43 Medication Entry - Benign essential hypertension (401.1 | I10) On 21-Jun-2014 [facility] 11:12 to 11:14 Lab entry only - Encounter for long-term (current) use of anticoagulants ( V58.61 | Z79.01) On 03-Jun-2014 [facility] 16:13 to 16:15 Lab entry only - Encounter for long-term (current) use of anticoagulants ( V58.61 | Z79.01) On [facility] 13:22 to 13:23 Lab entry only - Elevated PSA (790.93), Encounter for long-term (current) use of anticoagulants (V58.61 | Z79.01) On [facility] 14:27 to 14:28 Office Visit [...] thing in the morning and on stairs. [facility] Historical Summary On 28-Dec-2013 [facility] 12:26 to 12:29 Medication Entry - Encounter for long-term (current) use of anticoagulants ( V58.61 | Z79.01), Diabetes mellitus (250.00 | E11.9), Fibrillation, atrial ( 427.31) On 03-Nov-2013 [facility] 09:01 to 11:53 Medication Entry - Fibrillation, atrial (427.31), Diabetes mellitus (250.00 | E11.9) On 30-Oct-2013 [facility] 15:55 to 16:00 Lab entry only - Encounter for long-term (current) use of anticoagulants ( V58.61 | Z79.01) On 27-Oct-2013 [facility] 17:57 to 17:59 Office Visit [...] M.D. after being in the hospital at [facility] on 10/16/13 & discharged on 10/17/13 dx jasmeet diaz, inr was done prior to visit.) . Note for "Transition into care": He passed a kidney stone a week ago.[facility] Historical Summary On 23-Oct-2013 [facility] 14:42 to 14:45 Lab entry only - Encounter for long-term (current) use of anticoagulants ( V58.61 | Z79.01) On 20-Oct-2013 [facility] 16:31 to 16:33 Lab entry only - Encounter for long-term (current) use of anticoagulants ( V58.61 | Z79.01) On 16-Sep-2013 [facility] 10:14 to 10:15 Lab entry only - Elevated PSA (790.93) On 15-Sep-2013 [facility] 11:11 to 11:12 Lab entry only - Encounter for long-term (current) use of anticoagulants ( V58.61 | Z79.01) On 07-Aug-2013 [facility] 14:32 to 14:33 Lab entry only - Benign essential hypertension (401.1 | I10), Diabetes mellitus (250.00 | E11.9) On 07-Aug-2013 [facility] 11:18 to 11:19 Lab entry only - Encounter for long-term (current) use of anticoagulants ( V58.61 | Z79.01) On 01-May-2013 [facility] 10:33 to 10:38 Office Visit [...] He did miss some meds while he traveled.[facility] Historical Summary On 29-Apr-2013 [facility] 11:46 to 11:49 Lab entry only - Encounter for long-term (current) use of anticoagulants ( V58.61 | Z79.01) On [facility] 16:39 to 16:42 Lab entry only - Encounter for long-term (current) use of anticoagulants ( V58.61 | Z79.01) On [facility] 19:40 to 19:42 Lab entry only - Elevated PSA (790.93) On [facility] 12:03 to 12:07 Office Visit [...] for "Cough": He has not had an antibiotic.[facility] Lab entry only - Encounter for long-term (current) use of anticoagulants ( V58.61 | Z79.01) On 16-Dec-2012 [facility] 18:21 to 18:23 Lab entry only - Encounter for long-term (current) use of anticoagulants ( V58.61 | Z79.01) On 27-Nov-2012 [facility] 16:52 to 16:53 Lab entry only - Encounter for long-term (current) use of anticoagulants ( V58.61) On 26-Nov-2012 [facility] 15:04 to 15:05 Office Visit [...] first thing in the morning and on stairs.[facility] Historical Summary On 29-Oct-2012 [facility] 16:15 to 16:17 Lab entry only - Encounter for long-term (current) use of anticoagulants ( V58.61) On 15-Oct-2012 [facility] 09:51 to 09:57 Lab entry only - Encounter for long-term (current) use of anticoagulants ( V58.61), Elevated PSA (790.93) On 14-Oct-2012 [facility] 10:25 to 10:26 Lab entry only - Encounter for long-term (current) use of anticoagulants ( V58.61) On 12-Sep-2012 [facility] 13:44 to 13:45 Medication Entry - Edema (782.3), Fibrillation, atrial (427.31) On 20-Aug-2012 [facility] 11:10 to 11:12 Medication Entry - Fibrillation, atrial (427.31), Edema (782.3) On 19-Aug-2012 [facility] 17:29 to 18:11 Medication Entry - Encounter for long-term (current) use of anticoagulants ( V58.61), Fibrillation, atrial (427.31), Diabetes mellitus (250.00) On 2011 [facility] 17:44 to 17:53 Office Visit - 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), Inflamed seborrheic keratosis (702.11), Hyperglycemia (790.29), Encounter for long-term (current) use of anticoagulants (V58.61), Fibrillation, atrial (427.31) On 01-Aug-2012 Encounter Reason: Follow up for chronic condition - The patient feels well with minor complaints (here today for a 3 month follow up with Dr. Romero ) .[facility] 09:34 to 10:39 Medication Entry - Encounter for long-term (current) use of anticoagulants ( V58.61) On 31-Jul-2012 [facility] 18:21 to 18:22 Historical Summary On 31-Jul-2012 [facility] 11:40 to 11:42 Lab entry only - Encounter for long-term (current) use of anticoagulants ( V58.61) On 23-Jun-2012 [facility] 18:47 to 18:52 Lab entry only - Elevated PSA (790.93), Encounter for long-term (current) use of anticoagulants (V58.61) On 23-Jun-2012 [facility] 15:48 to 15:53 Office Visit - Adjustment disorder with depressed mood (309.0), Encounter for long-term (current) use of anticoagulants (V58.61), Elevated PSA (790.93) On Encounter Reason: Follow up for chronic condition - The patient feels well with minor complaints (here for a 6 week follow up visit do to a new medication but did not start the medication).[facility] 11:19 to 13: 39 Historical Summary On 30-Apr-2012 [facility] 11:50 to 11:52 Lab entry only - Encounter for long-term (current) use of anticoagulants ( V58.61) On 28-Apr-2012 [facility] 17:23 to 17:26 Lab entry only - Elevated PSA (790.93), Encounter for long-term (current) use of anticoagulants (V58.61) On 28-Apr-2012 [facility] 14:19 to 14:22 Office Visit [...] , had lab done prior to appt today).[facility] Lab entry only - Edema (782.3), Hyperglycemia (790.29), Encounter for long- term (current) use of anticoagulants (V58.61) On [facility] 11:06 to 11:14 Lab entry only - Elevated PSA (790.93), Fibrillation, atrial (427.31), Edema ( 782.3) On [facility] 09:02 to 09:05 Lab entry only - Encounter for long-term (current) use of anticoagulants ( V58.61) On [facility] 16:44 to 16:45 Medication Entry On 26-Oct-2011 [facility] 13:30 to 13:32 Lab entry only - Elevated PSA (790.93) On 23-Oct-2011 [facility] 11:01 to 11:04 Lab entry only - Encounter for long-term (current) use of anticoagulants ( V58.61), Low testosterone (257.2) On 17-Oct-2011 [facility] 10:15 to 10:17 Medication Entry - Fibrillation, atrial (427.31) On 04-Oct-2011 [facility] 09:26 to 09:38 Medication Entry - Fibrillation, atrial (427.31), Edema (782.3), Encounter for long-term (current) use of anticoagulants (V58.61), Benign prostatic hypertrophy without lower urinary tract symptoms (LUTS) (600.00) On 02-Oct-2011 [facility] 18:56 to 19:02 Medication Entry - Encounter for long-term (current) use of anticoagulants ( V58.61), Fibrillation, atrial (427.31), Edema (782.3) On 26-Sep-2011 [facility] 11:06 to 11:11 Medication Entry - Fibrillation, atrial (427.31), Encounter for long-term ( current) use of anticoagulants (V58.61) On 24-Sep-2011 [facility] 10:41 to 10:49 Lab entry only - Low testosterone (257.2) On 10-Aug-2011 [facility] 13:03 to 13:05 Lab entry only - Hyperglycemia (790.29), Encounter for long-term (current) use of anticoagulants (V58.61), Fibrillation, atrial (427.31) On 08-Aug-2011 [facility] 13:27 to 13:29 Office Visit [...] he 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." [facility] Historical Summary On 06-Aug-2011 [facility] 12:22 to 12:24 Medication Entry - Fibrillation, atrial (427.31) On 05-Jun-2011 [facility] 08:54 to 08:59 Lab entry only - Encounter for long-term (current) use of anticoagulants ( V58.61) On 15-May-2011 [facility] 18:48 to 18:50 Office Visit [...] up is diabetes, hypertension, cardiovascular disorder and other.[facility] Medication Entry - Benign prostatic hypertrophy without lower urinary tract symptoms (LUTS) (600.00) On 19-Apr-2011 [facility] 08:49 to 08:51 Lab entry only - Benign prostatic hypertrophy without lower urinary tract symptoms (LUTS) (600.00) On 10-Apr-2011 [facility] 15:15 to 15:19 Office Visit [...] seeing dr. boswell the middle of apr.). [facility] Historical Summary On [facility] 16:05 to 16:18 Lab entry only - Encounter for long-term (current) use of anticoagulants ( V58.61) On [facility] 17:34 to 17:36 Lab entry only - Encounter for long-term (current) use of anticoagulants ( V58.61), Elevated PSA (790.93) On [facility] 09:42 to 09:43 Lab entry only - Encounter for long-term (current) use of anticoagulants ( V58.61) On 24-Nov-2010 [facility] 08:55 to 08:57 Lab entry only - Encounter for long-term (current) use of anticoagulants ( V58.61) On 20-Oct-2010 [facility] 14:42 to 14:46 Historical Summary - Encounter for long-term (current) use of anticoagulants ( V58.61) On 13-Sep-2010 [facility] 10:53 to 10:59 Historical Summary 12-Sep-2010 to 13-Sep-2010 [facility] Lab entry only - Encounter for long-term (current) use of anticoagulants ( V58.61) On 14-Aug-2010 [facility] 17:44 to 17:49 Historical Summary - Elevated PSA (790.93) 09-Aug-2010 to 15-Aug-2010 [facility] Lab entry only - Encounter for long-term (current) use of anticoagulants ( V58.61) 27-Jun-2010 to 28-Jun-2010 [facility] Lab entry only - Encounter for long-term (current) use of anticoagulants ( V58.61) On 26-Jun-2010 [facility] 16:21 to 22:23 Insurance Vijay Yuan; a guarantorMedicare [facility] [employer]
--- OUTSIDE RECORDS SUMMARY | 2017-10-22 17:42 | External Medical Summary | Continuity of Care Document ---
:1940 Author Organization [facility] Address [address] [place] [address] Phone Care Team Providers Name Role Phone James Romero MD Primary Care Provider James Romero MD Unavailable Jorje Armstrong MD Unavailable Carolee Ortiz Unavailable Unavailable Unavailable Unavailable Problems Name Dates [...] days Quantity: 90 {Tablet} Refills: 4 Ordered:03-Nov-2013 GarretaDyorickey Start 03-Nov-2013 Active DILTIAZEM HCL ER, 240MG (Oral Capsule Extended Release 24 Hour) 1 Capsule ER 24HR daily for 90 days Quantity: 90 {Capsule} Refills: 4 Ordered:03-Nov-2013 Garret Nohelia Start 03-Nov-2013 Active FLOMAX, 0.4MG (Oral Capsule) [...] Comments:started on 10/17/13 [facility] gale CITALOPRAM HYDROBROMIDE, 20MG (Oral Tablet) 1 Tablet daily for 30 days Quantity: 30 {Tablet} Refills: 2 Ordered:01-May-2012 Mtmiryam Nohelia Start End 01-May-2012 Inactive Comments:May increase to [...] dx kidney stone [facility] testrone cream 10% apply 0.5ml daily [...] Ordered:27-Jul-2015 HIGH DOSE QUADRIVALENT INFLUENZA Ordered:25-Jul-2015 VACCINE ([id number]) ADMINISTRATION OF INFLUENZA VIRUS Ordered:25-Jul-2015 VACCINE (G0008) Follow up in 3 months Ordered:25-Jul-2015 Follow up in 4 months Ordered: X-RAY EXAM OF KNEE, 1 OR 2 VIEWS Completed: Comments: right (02048) X-RAY EXAM OF BOTH KNEES, Completed: STANDING (51001) How to access health information Completed: online Follow up - Keep appt as scheduled Ordered:28-Oct-2014 CAROTID BILATERAL US ([id number]) Completed:14-Sep-2014 Comments: Verbal order from Dr. James Romero Follow up in 6 months Ordered:12-Aug-2014 PREVNAR 13 VALENT PNEUMOCOCCAL Completed:12-Aug-2014 VACCINE (05187) ADMINISTRATION OF PNEUMOCOCCAL Ordered:12-Aug-2014 CONJUGATE VACCINE (G0009) How to access health information Completed:12-Aug-2014 online Follow up in 6 months Ordered: Follow up in 2 months Ordered:26-Oct-2013 ADMIN INFLUENZA VIRUS VAC: FLU VACC Completed:26-Oct-2013 PRSV FREE INC ANTIG (70051) ADMINISTRATION OF INFLUENZA VIRUS Ordered:26-Oct-2013 VACCINE (G0008) Follow up in 6 months Ordered:30-Apr-2013 Follow up - Keep appt as scheduled Ordered:02-Jan-2013 Follow up in 6 months Ordered:30-Oct-2012 Follow up in 3 months Ordered:01-Aug-2012 Follow up in 3 months Ordered:01-May-2012 Follow up in 6 weeks Ordered: ADMINISTRATION OF INFLUENZA VIRUS Ordered:14-May-2011 VACCINE (G0008) FLU VACC PRSV FREE INC ANTIG Completed:14-May-2011 (10735) Follow up in 2 months Ordered:14-May-2011 Follow up in 2 months Ordered: Annual Eye Exam Completed:22-Nov-2008 Colonoscopy, Screening Completed: Colonoscopy, Screening Completed:06-Oct-2014 Flu Vaccine Completed:26-Oct-2013 Flu Vaccine Completed:06-Jun-2012 Comments: [facility] Flu Vaccine Completed:14-May-2011 Comments: high dose Pneumovax Completed:2008 prevnar 13 Completed:12-Aug-2014 PSA Completed:28-Apr-2012 Comments: (16.45) PSA Completed:10-Apr-2011 Comments: (5.95) PSA Completed:23-Jun-2012 Comments: (8.05) PSA Completed:14-Oct-2012 Comments: (8.11) PSA Completed: Comments: (5.60) PSA Completed:15-Sep-2013 Comments: (5.40) PSA Completed: Comments: (6.15) PSA Completed:24-Aug-2014 Comments: (7.11) PSA Completed: Comments: (6.55) Immunization Name Dates Details Fluzone Administered on:14-May-2011 Comments: Site: Deltoid (Left); high dose Lot #: [id number] Influenza, preserv. free, enhanced immunogncty, IM Administered on:2013 Comments: Site: Deltoid (Left) Lot #: [id number] Pneumococcal conjugate vaccine, 13 valent, IM Administered on:12-Aug-2014 Comments: Site: Deltoid (Left) Lot #: [id number] Social History Name Dates Details Tobacco use: [...] Comments: The left neck Final 10:36 SINGLE (26400) lesion was removed and also the left [...] not sent to pathology. 10:35 PUNCH BIOPSY (14213) Comments: After Final FIRST BIOPSY cleansing the [...] have a artifical heart valve? No 15:06 ([facility]) (47057) 9. Saturday Dosage 7.5 mg (Normal) 8. [...] order include: Draw Charge[i], Protime & INR (67272) Draw Drawn (Normal) [facility] (30521) Comments: Items in this order include: Basic [...] in this order include: A COPY TO , PSA ANTIGEN) (75725) PSA 6.55 ng/mL (Abnormal) Range: 0.00-4.00 09:[address] Boswell Comments: A copy of this report will be faxed to: Bettie Boswell in this order include: A COPY TO [eliana, PSA Ordering Doctor . (Normal) 09:15 PT (PROTHROMBIN TIME) Comments: Items in this order include: Draw Charge[i], Protime & INRDoes patient have a artifical heart valve? No ([facility]) (66849) 8. Saturday Dosage 7.5 mg (Normal) 9. [...] order include: Draw Charge[i], Protime & INR (47162) Draw Drawn (Normal) -Dec-2014 PT (PROTHROMBIN TIME) Comments: Items in this order include: Draw Charge[i], Protime & INRDoes patient have a artifical heart valve? No 09:28 ([facility]) (40863) 9. Saturday Dosage 5.0 mg (Normal) 7. [...] order include: Draw Charge[i], Protime & INR (01028) Draw Drawn (Normal) 28-Oct-2014 PT (PROTHROMBIN TIME) Comments: Items in this order include: Draw Charge[i], Protime & INRDoes patient have a artifical heart valve? No 10:48 ([facility]) (68367) 9. Saturday Dosage 7.5 mg (Normal) 8. [...] order include: Draw Charge[i], Protime & INR (94997) Draw Drawn (Normal) 29-Nov-2014 PT (PROTHROMBIN TIME) Comments: Items in this order include: Draw Charge[i], Protime & INRDoes patient have a artifical heart valve? No 10:28 ([facility]) (81726) 9. day Dosage 5.0 mg (Normal) 8. [...] order include: Draw Charge[i], Protime & INR (74280) Draw Drawn (Normal) 21-Sep-2014 PT (PROTHROMBIN TIME) Comments: Items in this order include: Draw Charge[i], Protime & INRDolynn patient have a artifical heart valve? No 10:08 ([facility]) (23258) 9. Saturday Dosage 5.0 mg (Normal) 7. [...] order include: Draw Charge[i], Protime & INR (42213) Draw Drawn (Normal) 24-Aug-2014 Routine Venipuncture Comments: Items in this order include: Protime & INR, Draw Charge[i] 09:59 (76882) Draw Drawn (Normal) 09:59 PT (PROTHROMBIN TIME) Comments: Items in this order include: Protime & INR, Draw Charge[i]INR value > 3.0 given to Estella by Beny Buckley patient have a artifical heart valve? No ([facility]) (85409) 9. Saturday Dosage 7.5 mg (Normal) 7. [...] Panel, Hemoglobin A1C, Urine Microalbumin, CBC ONE! (54572) manual diff Not Indicated (Normal) mpv 9.60 [...] Metabolic Panel, Hemoglobin A1C, Urine Microalbumin, CBC (05970) U A:C RATIO <30 mg/g Normal Range: <30 mg/g Normal (Normal) U CREAT 200 mg/dL (Normal) Range: 10-300 U ALB 80 mg/L (Abnormal) Range: 10 mg/L 09:59 HEMOGLOBIN GLYCLATED Comments: Items in this order include: Digoxin , PSA, Basic Metabolic Panel, Hemoglobin A1C, Urine Microalbumin, CBC (HGB A1C) (70766) A1C 5.9 % (Normal) Range: 4.6-6.2 Comments: Increased risk of diabetes. 09:59 [facility] (53391) Comments: Items in this order include: Digoxin, [...] Panel, Hemoglobin A1C, Urine Microalbumin, CBC ANTIGEN) (48944) PSA 7.11 ng/mL (Abnormal) Range: 0.00-4.00 09:59 DIGOXIN (00467) Comments: Items in this order include: Digoxin, PSA , Basic Metabolic Panel, Hemoglobin A1C, Urine Microalbumin, CBCTime of Last Dose? 08/23/2014 8:00 AMDosage? 0.25 DIG 0.36 ng/mL (Abnormal) Range: 0.90-2.00 05-Aug-2014 PT (PROTHROMBIN TIME) Comments: Items in this order include: Draw Charge[i], Protime & INRDoes patient have a artifical heart valve? No 10:48 ([facility]) (99432) 8. Saturday Dosage 7.5 mg (Normal) 9. [...] order include: Draw Charge[i], Protime & INR (79601) Draw Drawn (Normal) 03-Jun-2014 PT (PROTHROMBIN TIME) Comments: Items in this order include: Draw Charge[i], Protime & INRDoes patient have a artifical heart valve? No 13:56 ([employer]) (11460) 9. Saturday Dosage 7.5 mg (Normal) 8. [...] order include: Draw Charge[i], Protime & INR (44720) Draw Drawn (Normal) PT (PROTHROMBIN TIME) Comments: Items in this order include: Protime & INRDoes patient have a artifical heart valve? No 14:25 ([employer]) (79498) 9. Saturday Dosage 5.0 mg (Normal) 8. [...] this order include: Draw Charge[i], PSA ANTIGEN) (29841) PSA 6.15 ng/mL (Abnormal) Range: 0.00-4.00 14:25 Routine Venipuncture Comments: A copy of this report will be faxed to: Bettie Boswell in this order include: Draw Charge[i], PSA (89920) Draw Drawn (Normal) HEMOGLOBIN GLYCLATED Comments: Items in this order include: Hemoglobin A1C, Draw Charge[i], Comprehensive Metabolic Panel, Uric Acid 15:06 (HGB A1C) (36197) A1C 5.7 % (Normal) Range: 4.6-6.2 15:06 CMP (21576) Comments: Items in this order include: Hemoglobin [...] (Normal) Range: 135-145 15:06 URIC ACID BLOOD (51884) Comments: Items in this order include: Hemoglobin A1C, Draw Charge[i], Comprehensive Metabolic Panel, Uric Acid Uric Acid 8.0 mg/dL (Abnormal) Range: 3.6-7.7 15:06 Routine Venipuncture Comments: Items in this order include: Hemoglobin A1C, Draw Charge[i], Comprehensive Metabolic Panel, Uric Acid (00903) Draw Drawn (Normal) PT (PROTHROMBIN TIME) Comments: Items in this order include: Draw Charge[i], Protime & INRDoes patient have a artifical heart valve? No 14:27 ([facility]) (99125) 8. Saturday Dosage 5.0 mg (Normal) 9. [...] order include: Draw Charge[i], Protime & INR (27666) Draw Drawn (Normal) 26-Oct-2013 Draw Charge[i] Comments: Items in this order include: Basic Metabolic Panel, Draw Charge[i] 17:08 Draw Drawn (Normal) 17:05 [facility] (49250) Comments: Items in this order include: Basic [...] patient have a artifical heart valve? No ([facility]) (13586) 9. Saturday Dosage 5.0 mg (Normal) 7. [...] order include: Draw Charge[i], Protime & INR (19716) Draw Drawn (Normal) 15-Sep-2013 PSA (PROSTATE SPECIFIC Comments: A copy of this report will be faxed to: Bettie Boswell in this order include: A COPY TO [kyung] PSAPSA allowed more than once a year due to being a Diagonistic PSA not a screening PSA 11:05 ANTIGEN) (46178) PSA 5.40 ng/mL (Abnormal) Range: 0.00-4.00 11:05 [...] this order include: Comprehensive Metabolic Panel, Hemoglobin [id number] Hgb A1C was ran 99 Days ago. Check by MARGARITA 10:38 (HGB A1C) (78525) A1C 5.9 % (Normal) Range: 4.6-6.2 Comments: Increased risk of diabetes. 10:38 [facility] (15623) Comments: Items in this order include: Comprehensive Metabolic Panel, Hemoglobin P1DUfje Hgb A1C was ran 99 Days ago. [...] patient have a artifical heart valve? No ([facility]) (59423) 9. Saturday Dosage 5.0 (cycle of 5,5,7.5 [...] order include: Draw Charge[i], Protime & INR (45788) Draw Drawn (Normal) 10:38 DIGOXIN (91730) Comments: Items in this order include: DigoxinTime of Last Dose? 08/06/2013 8:30 AMDosage? 0.25 mg daily DIG 0.48 ng/mL (Abnormal) Range: 0.90-2.00 30-Apr-2013 HEMOGLOBIN GLYCLATED Comments: Items in this order include: Comprehensive Metabolic Panel, CBC, Hemoglobin F3QHfnh Hgb A1C was ran 225 Days ago. Check by ms 11:58 (HGB A1C) (09581) A1C 6.1 % (Normal) Range: 4.6-6.2 11:58 CBC MALE- ORDER THIS Comments: Items in this order include: Comprehensive Metabolic Panel, CBC, Hemoglobin U5LAojp Hgb A1C was ran 225 Days ago. Check by ms ONE! (73647) manual diff Not Indicated (Normal) mpv 4.88 [...] 6.15 10*3/uL (Normal) Range: 4.50-10.50 11:58 CMP (77357) Comments: Items in this order include: Comprehensive Metabolic Panel, CBC, Hemoglobin G6XCneo Hgb A1C was ran 225 Days ago. [...] patient have a artifical heart valve? No ([facility]) (89129) 4. Saturday Dosage Repeat mg (Normal) 3. Saturday Dosage 7.5 mg (Normal) 2. Saturday Dosage 5.0 mg (Normal) 1. Saturday Dosage 5.0 mg (Normal) INR 2.60 (Normal) PT 26.8 s (Abnormal) Range: 10.4-12.4 PT (PROTHROMBIN TIME) Comments: Items in this order include: Draw Charge[i], Protime & INRDoes patient have a artifical heart valve? No 15:12 ([facility]) (06604) 5. Dosage Repeat mg (Normal) 4. Saturday Dosage 5.0 mg (Normal) 3. Saturday Dosage 5.0 mg (Normal) 2. Saturday Dosage 7.5 mg (Normal) INR 2.31 (Normal) PT 24.0 s (Abnormal) Range: 10.4-12.4 15:12 Routine Venipuncture Comments: Items in this order include: Draw Charge[i], Protime & INR (17296) Draw Drawn (Normal) PSA (PROSTATE SPECIFIC Comments: A copy of this report will be faxed to: Bettie Boswell in this order include: PSA, Draw Charge[i]PSA allowed more than once a year due to being a Diagonistic PSA not a screening PSA 10:00 ANTIGEN) (17915) PSA 5.60 ng/mL (Abnormal) Range: 0.00-4.00 10:00 [...] patient have a artifical heart valve? No ([facility]) (36809) 3. Saturday Dosage Repeat mg (Normal) 2. Saturday Dosage 7.5 mg (Normal) 1. Saturday Dosage 5.0 mg (Normal) INR 2.64 (Normal) PT 27.2 s (Abnormal) Range: 10.4-12.4 10:09 Routine Venipuncture Comments: Items in this order include: Draw Charge[i], Protime & INR (93142) Draw Drawn (Normal) 16-Dec-2012 PT (PROTHROMBIN TIME) Comments: Items in this order include: Draw Charge[i], Protime & INRDoes patient have a artifical heart valve? No 10:46 ([facility]) (48675) 4. Saturday Dosage Repeat mg (Normal) 3. Saturday Dosage 5.0 mg (Normal) 2. Saturday Dosage 7.5 mg (Normal) INR 2.13 (Normal) PT 22.2 s (Abnormal) Range: 10.4-12.4 10:46 Routine Venipuncture Comments: Items in this order include: Draw Charge[i], Protime & INR (81214) Draw Drawn (Normal) 26-Nov-2012 Routine Venipuncture Comments: Items in this order include: Protime & INR, Draw Charge[i] 15:05 (24657) Draw Drawn (Normal) 15:05 PT (PROTHROMBIN TIME) Comments: Items in this order include: Protime & INR, Draw Charge[i]Does patient have a artifical heart valve? No ([facility]) (77441) 4. Saturday Dosage 5.0 Repeat mg (Normal) 3. Saturday Dosage 5.0 mg (Normal) 2. Saturday Dosage 7.5 mg (Normal) INR 1.34 (Normal) PT 14.4 s (Abnormal) Range: 10.4-12.4 30-Oct-2012 PT (PROTHROMBIN TIME) Comments: Items in this order include: Draw Charge[i], Protime & INRINR value > 3.0 given to BW by Froy Chávez patient have a artifical heart valve? No 10:38 ([facility]) (90900) 7. Saturday Dosage 7.5 mg (Normal) 6. [...] order include: Draw Charge[i], Protime & INR (51325) Draw Drawn (Normal) 11:33 BMP Comments: Items [...] Dose? 10/29/2012 8:00 PMDosage? 0.25 mg Daily (33472) DIG 1.64 ng/mL (Normal) Range: 0.90-2.00 14-Oct-2012 PSA (PROSTATE SPECIFIC Comments: A copy of this report will be faxed to: Bettie Boswell in this order include: Draw Charge[i], Protime & INR, PSAPSA allowed more than once a year due to being a Diagonistic PSA not a screening PSA 10:25 ANTIGEN) (34292) PSA 8.11 ng/mL (Abnormal) Range: 0.00-4.00 10:25 PT (PROTHROMBIN TIME) Comments: PSA allowed more than once a year due to being a Diagonistic PSA not a screening PSACoumadin dosage=5,5,5,5,7.5 repeatDoes patient have a artifical heart valve? No ([facility]) (05788) 7. Saturday Dosage 7.5 mg (Normal) 6. [...] a Diagonistic PSA not a screening PSA (97010) Draw Drawn (Normal) 12-Sep-2012 PT (PROTHROMBIN TIME) Comments: Items in this order include: Draw Charge[i], Protime & INRDoes patient have a artifical heart valve? No 09:16 ([facility]) (98166) 6. Saturday Dosage Repeat mg (Normal) 5. Dosage 7.5 mg (Normal) 4. Saturday Dosage 5.0 mg (Normal) 3. Saturday Dosage 5.0 mg (Normal) 2. Saturday Dosage 5.0 mg (Normal) 1. Saturday Dosage 5.0 mg (Normal) INR 2.48 (Normal) PT 25.7 s (Abnormal) Range: 10.4-12.4 09:16 Routine Venipuncture Comments: Items in this order include: Draw Charge[i], Protime & INR (34409) Draw Drawn (Normal) 18-Aug-2012 PT (PROTHROMBIN TIME) Comments: Items in this order include: Protime & INRDolynn patient have a artifical heart valve? No 11:44 ([facility]) (34269) 7. Saturday Dosage 5.0 mg (Normal) 6. [...] Days ago. Check by KB (HGB A1C) (73181) A1C 6.2 % (Normal) Range: 4.6-6.2 Comments: High risk of diabetes. 31-Jul-2012 PT (PROTHROMBIN TIME) Comments: Items in this order include: Draw Charge[i], Protime & INRINR value > 3.0 given to Estella by Beny Buckley patient have a artifical heart valve? No 13:32 ([facility]) (92872) 7. Saturday Dosage 5.0 mg (Normal) 6. [...] order include: Draw Charge[i], Protime & INR (63522) Draw Drawn (Normal) 23-Jun-2012 PSA (PROSTATE SPECIFIC Comments: A copy of this report will be faxed to: Bettie Boswell in this order include: Draw Charge[i], Protime & INR, PSAPSA allowed more than once a year due to being a Diagonistic PSA not a screening PSA 15:50 ANTIGEN) (71243) PSA 8.05 ng/mL (Abnormal) Range: 0.00-4.00 15:50 PT (PROTHROMBIN TIME) Comments: A copy of this report will be faxed to: Bettie Boswell in this order include: Draw Charge[i], Protime & INR , PSAPSA allowed more than once a year due to being a Diagonistic PSA not a screening ([facility]) (92163) PSADoes patient have a artifical heart valve? [...] a Diagonistic PSA not a screening PSA (17766) Draw Drawn (Normal) 13-May-2012 Draw Charge[i] Comments: [...] results to dr. hema boswell 14:28 ANTIGEN) (16956) PSA 16.45 ng/mL (Abnormal) Range: 0.00-4.00 14:28 PT (PROTHROMBIN TIME) Comments: Coumadin Dosage=5,5,5,7.5 Repeat. Took 7.5 on 04-27-12. ([facility]) (70725) 5. Dosage 7.5 Repeat mg (Normal) 4. Saturday Dosage 5.0 mg (Normal) 3. Saturday Dosage 5.0 mg (Normal) 2. Saturday Dosage 5.0 mg (Normal) 1. Saturday Dosage 7.5 mg (Normal) INR 2.17 (Normal) PT 22.7 s (Abnormal) Range: 10.4-12.4 14:28 Routine Venipuncture (74619) Draw Drawn (Normal) 13-May-2012 PSA (PROSTATE SPECIFIC Comments: A copy of this report will be faxed to: Bettie Boswell in this order include: PSA, Draw Charge[i]PSA allowed more than once a year due to being a Diagonistic PSA not a screening PSA 09:20 ANTIGEN) (15188) PSA 11.30 ng/mL (Abnormal) Range: 0.00-4.00 TSH (THYROID Comments: Items in this order include: TSH 16:40 STIMULATING HORMONE) (58624) TSH 1.36 uIU/ml (Normal) Range: 0.34-5.60 14:50 PT (PROTHROMBIN TIME) Comments: Items in this order include: Draw Charge[i], Basic Metabolic Panel, Hemoglobin A1C, Protime & INRLast Hbg A1C was ran 218 Days ago. Check by DL ([facility]) (78050) 5. Dosage Repeat mg (Normal) 4. Saturday [...] ran 218 Days ago. Check (HGB A1C) (28411) by DLplease draw enough blood so if [...] ran 218 Days ago. Check by DL (10273) Draw Drawn (Normal) DIGOXIN, DRUG ASSAY Comments: Items in this order include: CBC, Comprehensive Metabolic Panel, CKI, Digoxin, Draw Charge[i] 09:08 (76318) DIG 0.38 ng/mL (Abnormal) Range: 0.90-2.00 09:08 CK Comments: Items in this order include: CBC, Comprehensive Metabolic Panel, CKI, Digoxin, Draw Charge[i] CKI 143 U/L (Normal) Range: 39-308 09:08 CMP (46602) Comments: Items in this order include: CBC, [...] Metabolic Panel, CKI, Digoxin, Draw Charge[i] ONE! (55978) manual diff Not Indicated (Normal) mpv 6.84 [...] order include: Protime & INR, Draw Charge[i] (81734) Draw Drawn (Normal) 16:45 PT (PROTHROMBIN TIME) Comments: Items in this order include: Protime & INR, Draw Charge[i]Coumadin doasage=5,5,7.5 Repeat ([facility]) (01759) 7. Saturday Dosage 5.0 mg (Normal) 6. [...] order include: Draw Charge[i], PSA 11:11 ANTIGEN) (62663) PSA 6.92 ng/mL (Abnormal) Range: 0.00-4.00 11:11 Routine Venipuncture Comments: A copy of this report will be faxed to: Bettie Boswell in this order include: Draw Charge[i], PSA (14255) Draw Drawn (Normal) 17-Oct-2011 Routine Venipuncture 10:18 (21054) Draw Drawn (Normal) 10:18 TESTOSTERONE, FREE, Comments: Items in this order include: Protime & INR, Draw Charge[i], TESTOSTERONE, FREE, BIOAVAILABLE, AND TOTAL, LC/MS/ MSTesting performed at: [place], [address] [address], [place], [address], [employer] Pilot: Michael Chávez [facility] TOTAL, LC/MS/MS ALBUMIN,SERUM 4.4 [...] and benefits counseling. 10:18 PT (PROTHROMBIN TIME) ([facility]) (89117) 7. Saturday Dosage 5.0 mg (Normal) 6. [...] Panel, Hemoglobin A1C, Draw Charge[i] (HGB A1C) (33965) A1C 6.1 % (Normal) Range: 4.6-6.2 13:29 [...] (Normal) Range: 135-145 13:29 DIGOXIN, DRUG ASSAY (36979) DIG 0.85 ng/mL (Abnormal) Range: 0.90-2.00 07-Aug-2011 TESTOSTERONE, FREE, Comments: Items in this order include: TESTOSTERONE, FREE, BIOAVAILABLE, AND TOTAL, LC/MS/MSTesting performed at: [email or web address] [place], [address] [address], [place] , [address], [place] 12:53 WEAKLY BOUND AND TOTAL ratory Director: Michael Chávez MD.[facility] (55392) ALBUMIN,SERUM 4.4 g/dL (Normal) Range: 3.6-5.1 SEX [...] INR, Draw Charge[i]no change in coumadin dose ([facility]) (27502) 7. Saturday Dosage 7.5 mg (Normal) 6. [...] Metabolic Panel, Protime & INR, Draw Charge[i] ([facility]) (13056) 7. Saturday Dosage 5.0 mg (Normal) 5. [...] Boswell in this order include: PSA ANTIGEN) (84881) PSA 5.95 ng/mL (Abnormal) Range: 0.00-4.00 CBC-MALE- ORDER THIS Comments: Items in this order include : Hemoglobin A1C, Comprehensive Metabolic Panel, CBC 11:56 ONE! (16612) manual diff Not Indicated (Normal) mpv 7.65 [...] 6.24 10*3/uL (Normal) Range: 4.50-10.50 11:56 CMP (44106) Comments: Items in this order include: Hemoglobin [...] 3.5-5.0 NA 136 mmol/L (Normal) Range: 135-145 9-Aug-2011 DIGOXIN, DRUG ASSAY Comments: Items in this order include: Digoxin, Draw Charge[i] 15:17 (69260) DIG 1.18 ng/mL (Normal) Range: 0.90-2.00 HEMOGLOBIN GLYCLATED Comments: Items in this order include: Hemoglobin A1C, Comprehensive Metabolic Panel, CBC 11:56 (HGB A1C) (18249) A1C 6.6 % (Abnormal) Range: 4.6-6.2 Comments: Consistent with diabetes. 13:48 PT (PROTHROMBIN TIME) Comments: change to coumadin 5mg x 2 day then 7.5mg x1 repeat the cycle; Items in this order include: Protime & INR, Draw Charge[i]cyclechange to coumadin 5mg x 2 day then 7.5mg x1 repeat the ([facility]) (08491) 6. Saturday Dosage 7.5 mg (Normal) 7. [...] & INR, PSA, Draw Charge[i] 09:43 ANTIGEN) (09397) PSA 5.84 ng/mL (Abnormal) Range: 0.00-4.00 09:43 PT (PROTHROMBIN TIME) Comments: no change in coumadin; no change in coumadin ([facility]) (83177) 7. day Dosage 7.5 mg (Normal) 6. Saturday Dosage 5.0 mg (Normal) 5. Dosage 7.5 mg (Normal) 4. Saturday Dosage 5.0 mg (Normal) 3. Saturday Dosage 5.0 mg (Normal) 1. Saturday Dosage 5.0 mg (Normal) 2. Saturday Dosage 7.5 mg (Normal) INR 3.45 (Normal) PT 32.9 s (Abnormal) Range: 10.4-12.4 23-Nov-2010 PT (PROTHROMBIN TIME) 10:03 ([facility]) (15892) 6. Saturday Dosage 7.5 mg (Normal) 7. Saturday Dosage 5 mg (Normal) 1. Saturday Dosage 5 mg (Normal) 2. Saturday Dosage 7.5 mg (Normal) 3. Saturday Dosage 5 mg (Normal) 4. Saturday Dosage 7.5 mg (Normal) 5. Dosage 5 mg (Normal) INR 2.16 (Normal) PT 21.0 s (Abnormal) Range: 10.4-12.4 19-Oct-2010 PT (PROTHROMBIN TIME) 15:16 ([facility]) (13417) 6. Saturday Dosage 5 mg (Normal) 7. Saturday Dosage 7.5 mg (Normal) 3. Saturday Dosage 7.5 mg (Normal) 4. Saturday Dosage 5 mg (Normal) 5. Dosage 7.5 mg (Normal) 1. Saturday Dosage 7.5 mg (Normal) 2. Saturday Dosage 5 mg (Normal) INR 2.13 (Normal) PT 20.7 s (Abnormal) Range: 10.4-12.4 12-Sep-2010 PT (PROTHROMBIN TIME) 11:03 ([facility]) (80163) INR 2.57 (Normal) PT (PROTHROMBIN TIME) 24.8 s (Abnormal) Range: 11.5-13.5 22-Aug-2010 PT (PROTHROMBIN TIME) 13:41 ([facility]) (67032) 09-Aug-2010 PSA, MEDICARE (G0103) Comments: please fax to dr hema boswell 09:54 PSA (Medicare) 4.83 ng/mL (Abnormal) Range: 0 - 4 09:34 PT (PROTHROMBIN TIME) ([facility]) (65283) INR 2.68 (Normal) PT (PROTHROMBIN TIME) 25.8 s (Abnormal) Range: 11.5-13.5 27-Jun-2010 PT (PROTHROMBIN TIME) 08:38 ([facility]) ([id number]) 26-Jun-2010 PT (PROTHROMBIN TIME) 16:21 ([facility] [place] (34126) INR 1.89 (Normal) PT (PROTHROMBIN TIME) 18.4 s (Abnormal) Range: 11.5-13.5 Treatment Plan PT (PROTHROMBIN TIME) ([facility] [place]) (50079); Ordered: 11/01/2015; Note: Verbal order from Dr. James RomeroLIPID PANEL (93243); Ordered: 11/01/2015; Note: Verbal order from Dr. James Poole (PROTHROMBIN TIME) ([facility] [place]) (56118); Ordered: 10/03/2015CK; Ordered : 10/03/2015CMP (39266); Ordered: 10/03/2015; Note: Verbal order from Dr. James Flores Venipuncture (37986); Ordered: 08/10/2015; Note: Verbal order from Dr. Jmaes Poole (PROTHROMBIN TIME) ([facility] [place]) (51686); Ordered: 08/10/2015; Note: Verbal order from Dr. James RomeroURIC ACID BLOOD (77321); Ordered: 2014HEMOGLOBIN GLYCLATED (HGB A1C) (84035); Ordered: 08/10/2015CK (81110); Ordered: 08/10/2015CMP (12725); Ordered: 08/10/2015CBC MALE- ORDER THIS ONE! ( 83821); Ordered: 08/10/2015 Advance Directives Encounters Medication Entry - Benign essential hypertension (401.1 | I10), Controlled atrial fibrillation (427.31 | I48.91) On 02-Aug-2015 [facility] 08:43 to 08:50 Office Visit - PG (pyogenic granuloma) (686.1 | L98.0) On 27-Jul-2015 Encounter Reason: Skin Lesions - Note for "Skin lesions": 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 He said he is having quite a bit of pain with the nodule and some occasional drainage. Seems to be recurrent for him. 09:10 to 09:52 [facility] Office Visit - PG (pyogenic [...] nail problems": He continues with his usual medications.[facility] Lab entry only - Encounter for long-term (current) use of anticoagulants ( V58.61 | Z79.01) On 07-Jul-2015 [facility] 16:55 to 16:56 Office Visit [...] the stairs and I have to crawl. [facility] Historical Summary On [facility] 12:33 to 12:36 Lab entry only - Encounter for long-term (current) use of anticoagulants ( V58.61 | Z79.01) On [facility] 17:37 to 17:39 Lab entry only - Elevated PSA (790.93) On [facility] 10:10 to 10:11 Lab entry only - Encounter for long-term (current) use of anticoagulants ( V58.61 | Z79.01), Encounter for long-term (current) use of anticoagulants ( V58.61 | Z79.01) On 14-Jan-2015 [facility] 14:52 to 14:53 Lab entry only - Encounter for long-term (current) use of anticoagulants ( V58.61 | Z79.01), Encounter for long-term (current) use of anticoagulants ( V58.61 | Z79.01) On 29-Nov-2014 [facility] 12:31 to 15:09 Medication Entry - Diabetes mellitus (250.00 | E11.9) On 12-Nov-2014 [facility] 11:46 to 11:53 Medication Entry - Cellulitis, leg (682.6 | L03.119) On 11-Nov-2014 [facility] 09:48 to 10:00 Office Visit [...] "Transition into care": He feels things are improved.[facility] Historical Summary On 27-Oct-2014 [facility] 15:03 to 15:08 Lab entry only - Fibrillation, atrial (427.31), Encounter for long-term ( current) use of anticoagulants (V58.61 | Z79.01) On 18-Oct-2014 [facility] 17:08 to 17:09 Medication Entry - Gout (274.9 | M10.9) On 12-Oct-2014 [facility] 16:17 to 16:22 Lab entry only - Encounter for long-term (current) use of anticoagulants ( V58.61 | Z79.01) On 21-Sep-2014 [facility] 15:31 to 15:33 Radiology Visit - Carotid stenosis (433.10 | I65.29) On 14-Sep-2014 [facility] 09:33 to 09:36 Lab entry only - Encounter for long-term (current) use of anticoagulants ( V58.61 | Z79.01) On 24-Aug-2014 [facility] 16:31 to 16:34 Office Visit - Health education (V65.40 | Z71.9), Prevnar (PCV13)FOR MEDICARE USE ONLY Pneumovax injection (V03.82) 83945, Encounter for long-term ( current) use of [...] lifeline screening. He mentions the "discoloration" of ankles.[facility] Historical Summary On 11-Aug-2014 [facility] 16:16 to 16:19 Lab entry only - Fibrillation, atrial (427.31), Encounter for long-term ( current) use of anticoagulants (V58.61 | Z79.01) On 06-Aug-2014 [facility] 16:41 to 16:43 Medication Entry - Benign essential hypertension (401.1 | I10) On 21-Jun-2014 [facility] 11:12 to 11:14 Lab entry only - Encounter for long-term (current) use of anticoagulants ( V58.61 | Z79.01) On 03-Jun-2014 [facility] 16:13 to 16:15 Lab entry only - Encounter for long-term (current) use of anticoagulants ( V58.61 | Z79.01) On [facility] 13:22 to 13:23 Lab entry only - Elevated PSA (790.93), Encounter for long-term (current) use of anticoagulants (V58.61 | Z79.01) On [facility] 14:27 to 14:28 Office Visit [...] thing in the morning and on stairs. [facility] Historical Summary On 28-Dec-2013 [facility] 12:26 to 12:29 Medication Entry - Encounter for long-term (current) use of anticoagulants ( V58.61 | Z79.01), Diabetes mellitus (250.00 | E11.9), Fibrillation, atrial ( 427.31) On 03-Nov-2013 [facility] 09:01 to 11:53 Medication Entry - Fibrillation, atrial (427.31), Diabetes mellitus (250.00 | E11.9) On 30-Oct-2013 [facility] 15:55 to 16:00 Lab entry only - Encounter for long-term (current) use of anticoagulants ( V58.61 | Z79.01) On 27-Oct-2013 [facility] 17:57 to 17:59 Office Visit [...] M.D. after [facility] & discharged on 10/17/13 dx jasmeet diaz, inr was done prior to visit.) . Note for "Transition into care": He passed a kidney stone a week ago.[facility] Historical Summary On 23-Oct-2013 [facility] 14:42 to 14:45 Lab entry only - Encounter for long-term (current) use of anticoagulants ( V58.61 | Z79.01) On 20-Oct-2013 [facility] 16:31 to 16:33 Lab entry only - Encounter for long-term (current) use of anticoagulants ( V58.61 | Z79.01) On 16-Sep-2013 [facility] 10:14 to 10:15 Lab entry only - Elevated PSA (790.93) On 15-Sep-2013 [facility] 11:11 to 11:12 Lab entry only - Encounter for long-term (current) use of anticoagulants ( V58.61 | Z79.01) On 07-Aug-2013 [facility] 14:32 to 14:33 Lab entry only - Benign essential hypertension (401.1 | I10), Diabetes mellitus (250.00 | E11.9) On 07-Aug-2013 [facility] 11:18 to 11:19 Lab entry only - Encounter for long-term (current) use of anticoagulants ( V58.61 | Z79.01) On 01-May-2013 [facility] 10:33 to 10:38 Office Visit [...] He did miss some meds while he traveled.[facility] Historical Summary On 29-Apr-2013 [facility] 11:46 to 11:49 Lab entry only - Encounter for long-term (current) use of anticoagulants ( V58.61 | Z79.01) On [facility] 16:39 to 16:42 Lab entry only - Encounter for long-term (current) use of anticoagulants ( V58.61 | Z79.01) On [facility] 19:40 to 19:42 Lab entry only - Elevated PSA (790.93) On [facility] 12:03 to 12:07 Office Visit [...] for "Cough": He has not had an antibiotic.[facility] Lab entry only - Encounter for long-term (current) use of anticoagulants ( V58.61 | Z79.01) On 16-Dec-2012 [facility] 18:21 to 18:23 Lab entry only - Encounter for long-term (current) use of anticoagulants ( V58.61 | Z79.01) On 27-Nov-2012 [facility] 16:52 to 16:53 Lab entry only - Encounter for long-term (current) use of anticoagulants ( V58.61) On 26-Nov-2012 [facility] 15:04 to 15:05 Office Visit [...] first thing in the morning and on stairs.[facility] Historical Summary On 29-Oct-2012 [facility] 16:15 to 16:17 Lab entry only - Encounter for long-term (current) use of anticoagulants ( V58.61) On 15-Oct-2012 [facility] 09:51 to 09:57 Lab entry only - Encounter for long-term (current) use of anticoagulants ( V58.61), Elevated PSA (790.93) On 14-Oct-2012 [facility] 10:25 to 10:26 Lab entry only - Encounter for long-term (current) use of anticoagulants ( V58.61) On 12-Sep-2012 [facility] 13:44 to 13:45 Medication Entry - Edema (782.3), Fibrillation, atrial (427.31) On 20-Aug-2012 [facility] 11:10 to 11:12 Medication Entry - Fibrillation, atrial (427.31), Edema (782.3) On 19-Aug-2012 [facility] 17:29 to 18:11 Medication Entry - Encounter for long-term (current) use of anticoagulants ( V58.61), Fibrillation, atrial (427.31), Diabetes mellitus (250.00) On 2011 [facility] 17:44 to 17:53 Office Visit - 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), Inflamed seborrheic keratosis (702.11), Hyperglycemia (790.29), Encounter for long-term (current) use of anticoagulants (V58.61), Fibrillation, atrial (427.31) On 01-Aug-2012 Encounter Reason: Follow up for chronic condition - The patient feels well with minor complaints (here today for a 3 month follow up with Dr. Romero ) .[facility] 09:34 to 10:39 Medication Entry - Encounter for long-term (current) use of anticoagulants ( V58.61) On 31-Jul-2012 [facility] 18:21 to 18:22 Historical Summary On 31-Jul-2012 [facility] 11:40 to 11:42 Lab entry only - Encounter for long-term (current) use of anticoagulants ( V58.61) On 23-Jun-2012 [facility] 18:47 to 18:52 Lab entry only - Elevated PSA (790.93), Encounter for long-term (current) use of anticoagulants (V58.61) On 23-Jun-2012 [facility] 15:48 to 15:53 Office Visit - Adjustment disorder with depressed mood (309.0), Encounter for long-term (current) use of anticoagulants (V58.61), Elevated PSA (790.93) On Encounter Reason: Follow up for chronic condition - The patient feels well with minor complaints (here for a 6 week follow up visit do to a new medication but did not start the medication).[facility] 11:19 to 13: 39 Historical Summary On 30-Apr-2012 [facility] 11:50 to 11:52 Lab entry only - Encounter for long-term (current) use of anticoagulants ( V58.61) On 28-Apr-2012 [facility] 17:23 to 17:26 Lab entry only - Elevated PSA (790.93), Encounter for long-term (current) use of anticoagulants (V58.61) On 28-Apr-2012 [facility] 14:19 to 14:22 Office Visit [...] , had lab done prior to appt today).[facility] Lab entry only - Edema (782.3), Hyperglycemia (790.29), Encounter for long- term (current) use of anticoagulants (V58.61) On [facility] 11:06 to 11:14 Lab entry only - Elevated PSA (790.93), Fibrillation, atrial (427.31), Edema ( 782.3) On [facility] 09:02 to 09:05 Lab entry only - Encounter for long-term (current) use of anticoagulants ( V58.61) On [facility] 16:44 to 16:45 Medication Entry On 26-Oct-2011 [facility] 13:30 to 13:32 Lab entry only - Elevated PSA (790.93) On 23-Oct-2011 [facility] 11:01 to 11:04 Lab entry only - Encounter for long-term (current) use of anticoagulants ( V58.61), Low testosterone (257.2) On 17-Oct-2011 [facility] 10:15 to 10:17 Medication Entry - Fibrillation, atrial (427.31) On 04-Oct-2011 [facility] 09:26 to 09:38 Medication Entry - Fibrillation, atrial (427.31), Edema (782.3), Encounter for long-term (current) use of anticoagulants (V58.61), Benign prostatic hypertrophy without lower urinary tract symptoms (LUTS) (600.00) On 02-Oct-2011 [facility] 18:56 to 19:02 Medication Entry - Encounter for long-term (current) use of anticoagulants ( V58.61), Fibrillation, atrial (427.31), Edema (782.3) On 26-Sep-2011 [facility] 11:06 to 11:11 Medication Entry - Fibrillation, atrial (427.31), Encounter for long-term ( current) use of anticoagulants (V58.61) On 24-Sep-2011 [facility] 10:41 to 10:49 Lab entry only - Low testosterone (257.2) On 10-Aug-2011 [facility] 13:03 to 13:05 Lab entry only - Hyperglycemia (790.29), Encounter for long-term (current) use of anticoagulants (V58.61), Fibrillation, atrial (427.31) On 08-Aug-2011 [facility] 13:27 to 13:29 Office Visit [...] he 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." [facility] Historical Summary On 06-Aug-2011 [facility] 12:22 to 12:24 Medication Entry - Fibrillation, atrial (427.31) On 05-Jun-2011 [facility] 08:54 to 08:59 Lab entry only - Encounter for long-term (current) use of anticoagulants ( V58.61) On 15-May-2011 [facility] 18:48 to 18:50 Office Visit [...] up is diabetes, hypertension, cardiovascular disorder and other.[facility] Medication Entry - Benign prostatic hypertrophy without lower urinary tract symptoms (LUTS) (600.00) On 19-Apr-2011 [facility] 08:49 to 08:51 Lab entry only - Benign prostatic hypertrophy without lower urinary tract symptoms (LUTS) (600.00) On 10-Apr-2011 [facility] 15:15 to 15:19 Office Visit [...] seeing dr. boswell the middle of apr.). [facility] Historical Summary On [facility] 16:05 to 16:18 Lab entry only - Encounter for long-term (current) use of anticoagulants ( V58.61) On [facility] 17:34 to 17:36 Lab entry only - Encounter for long-term (current) use of anticoagulants ( V58.61), Elevated PSA (790.93) On [facility] 09:42 to 09:43 Lab entry only - Encounter for long-term (current) use of anticoagulants ( V58.61) On 24-Nov-2010 [facility] 08:55 to 08:57 Lab entry only - Encounter for long-term (current) use of anticoagulants ( V58.61) On 20-Oct-2010 [facility] 14:42 to 14:46 Historical Summary - Encounter for long-term (current) use of anticoagulants ( V58.61) On 13-Sep-2010 [facility] 10:53 to 10:59 Historical Summary 12-Sep-2010 to 13-Sep-2010 [facility] Lab entry only - Encounter for long-term (current) use of anticoagulants ( V58.61) On 14-Aug-2010 [facility] 17:44 to 17:49 Historical Summary - Elevated PSA (790.93) 09-Aug-2010 to 15-Aug-2010 [facility] Lab entry only - Encounter for long-term (current) use of anticoagulants ( V58.61) 27-Jun-2010 to 28-Jun-2010 [facility] Lab entry only - Encounter for long-term (current) use of anticoagulants ( V58.61) On 26-Jun-2010 [facility] 16:21 to 22:23 Insurance Vijay Yuan; gwen guarantorMedicare [employer] Life[employer] Insurance[employer]S/Cares[employer]idan
--- OUTSIDE RECORDS SUMMARY | 2017-10-22 17:43 | External Medical Summary | Continuity of Care Document ---
:1940 Author Organization [facility] Address [address] [place] [address] Phone Care Team Providers Name Role Phone James Romero MD Primary Care Provider James Romero MD Unavailable Hema Boswell Consulting Provider Jorje Armstrong MD Unavailable Carolee Ortiz Unavailable Unavailable Evonne Dent Unavailable Unavailable Unavailable Unavailable Problems Name Dates [...] Comments:started on 10/17/13 after being dismissed from [facility] for kidney stone by gale CITALOPRAM [...] days Quantity: 30 {Capsule} Refills: 1 Ordered:07-Aug-2011 Rsehma Chaudhry Start End 07-Aug-2011 Inactive [facility], [...] dx kidney stone from being discharged from [facility] testrone cream 10% apply 0.5ml daily [...] Ordered:27-Jul-2015 HIGH DOSE QUADRIVALENT INFLUENZA Ordered:25-Jul-2015 VACCINE ([id number]) ADMINISTRATION OF INFLUENZA VIRUS Ordered:25-Jul-2015 VACCINE ([id number]) Follow up in 3 months Ordered:25-Jul-2015 Follow up in 4 months Ordered: X-RAY EXAM OF KNEE, 1 OR 2 VIEWS Completed: Comments: right (03510) X-RAY EXAM OF BOTH KNEES, Completed: STANDING (78945) How to access health information Completed: online Follow up - Keep appt as scheduled Ordered:28-Oct-2014 CAROTID BILATERAL US ([id number]) Completed:14-Sep-2014 Comments: Verbal order from Dr. James Romero Follow up in 6 months Ordered:12-Aug-2014 PREVNAR 13 VALENT PNEUMOCOCCAL Completed:12-Aug-2014 VACCINE (37905) ADMINISTRATION OF PNEUMOCOCCAL Ordered:12-Aug-2014 CONJUGATE VACCINE (G0009) How to access health information Completed:12-Aug-2014 online Follow up in 6 months Ordered: Follow up in 2 months Ordered:26-Oct-2013 ADMIN INFLUENZA VIRUS VAC: FLU VACC Completed:26-Oct-2013 PRSV FREE INC ANTIG (13589) ADMINISTRATION OF INFLUENZA VIRUS Ordered:26-Oct-2013 VACCINE (G0008) Follow up in 6 months Ordered:30-Apr-2013 Follow up - Keep appt as scheduled Ordered:02-Jan-2013 Follow up in 6 months Ordered:30-Oct-2012 Follow up in 3 months Ordered:01-Aug-2012 Follow up in 3 months Ordered:01-May-2012 Follow up in 6 weeks Ordered: ADMINISTRATION OF INFLUENZA VIRUS Ordered:14-May-2011 VACCINE (G0008) FLU VACC PRSV FREE INC ANTIG Completed:14-May-2011 (61202) Follow up in 2 months Ordered:14-May-2011 Follow up in 2 months Ordered: Annual Eye Exam Completed:22-Nov-2008 Colonoscopy, Screening Completed: Colonoscopy, Screening Completed:06-Oct-2014 Flu Vaccine Completed:26-Oct-2013 Flu Vaccine Completed:06-Jun-2012 Comments: jchd Flu Vaccine Completed:14-May-2011 Comments: high dose Flu Vaccine Completed:25-Jul-2015 Pneumovax Completed:2008 prevnar 13 Completed:12-Aug-2014 PSA Completed:08-Sep-2015 Comments: (6.00) PSA Completed:28-Apr-2012 Comments: (16.45) PSA Completed:10-Apr-2011 Comments: (5.95) PSA Completed:23-Jun-2012 Comments: (8.05) PSA Completed:14-Oct-2012 Comments: (8.11) PSA Completed: Comments: (5.60) PSA Completed:15-Sep-2013 Comments: (5.40) PSA Completed: Comments: (6.15) PSA Completed:24-Aug-2014 Comments: (7.11) PSA Completed: Comments: (6.55) Immunization Name Dates Details Fluzone Administered on:14-May-2011 Comments: Site: Deltoid (Left); high dose Lot #: [id number] Influenza, preserv. free, enhanced immunogncty, IM Administered on:2013 Comments: Site: Deltoid (Left) Lot #: [id number] Pneumococcal conjugate vaccine, 13 valent, IM Administered on:12-Aug-2014 Comments: Site: Deltoid (Left) Lot #: [id number] Social History Name Dates Details Tobacco use: [...] Comments: The left neck Final 10:36 SINGLE (49364) lesion was removed and also the left [...] not sent to pathology. 10:35 PUNCH BIOPSY (17379) Comments: After Final FIRST BIOPSY cleansing the left forearm with Hibiclens solution x3, the area was anesthetized with 1 cc 1% lidocaine and a 2 mm punch was used and elevated with sterile scissors and sent to pathology. Silver nitrate stick was for cautery. 25-Oct-2015 Draw Charge[i] 11:21 Draw Drawn (Normal) 11:21 PT (PROTHROMBIN TIME) Comments: Items in this order include: Priscilaime & Kelli patient have a artifical heart valve? No ([facility]) (08249) 9. Saturday Dosage Repeat mg (Normal) 8. Saturday Dosage 5.0 mg [...] Charge[i], Protime & INR, PSA 16:21 ANTIGEN) (40613) PSA 6.00 ng/mL (Abnormal) Range: 0.00-4.00 16:21 PT (PROTHROMBIN TIME) Comments: Does patient have a artifical heart valve? No ([facility]) (47157) 8. Saturday Dosage 5.0 mg (Normal) 9. Saturday Dosage 7.5 mg (Normal) 6. Saturday Dosage 7.5 mg (Normal) 7. Dosage 7.5 mg (Normal) 5. Saturday Dosage 5.0 mg (Normal) 4. Saturday Dosage 7.5 mg (Normal) 3. Saturday Dosage 7.5 mg (Normal) INR 2.21 (Normal) PT 24.2 s (Abnormal) Range: 9.3-11.7 16:21 Routine Venipuncture (11986) Draw Drawn (Normal) 25-Oct-2015 URIC ACID BLOOD (20891) Comments: Items in this order include : CBC, Comprehensive Metabolic Panel, CKI, Hemoglobin A1C, Uric Acid, Draw Charge[i] 11:21 Uric Acid 5.5 mg/dL (Normal) Range: 3.5-7.2 11:21 HEMOGLOBIN GLYCLATED (HGB A1C) (82051) A1C 6.2 % (Normal) Range: 4.6-6.2 Comments: High risk of diabetes. 11:21 CK (75338) Comments: Items in this order include: CBC, Comprehensive Metabolic Panel, CKI, Hemoglobin A1C, Uric Acid, Draw Charge[i] CKI 288 U/L (Normal) Range: 39-308 11:21 CMP (31959) Comments: Items in this order include: CBC, [...] 135-145 11:21 CBC MALE- ORDER THIS ONE! (87250) manual diff Not Indicated (Normal) mpv 9.80 [...] have a artifical heart valve? No 15:06 ([facility]) (16214) 9. Saturday Dosage 7.5 mg (Normal) 8. [...] order include: Draw Charge[i], Protime & INR (94646) Draw Drawn (Normal) [facility] (82430) Comments: Items in this order include: Basic [...] include: A COPY TO , PSA ANTIGEN) (08735) PSA 6.55 ng/mL (Abnormal) Range: 0.00-4.00 09:[address] Boswell Comments: A copy of this report will be faxed to: Bettie Boswell in this order include: A COPY TO [eliana, PSA Ordering Doctor . (Normal) 09:15 PT (PROTHROMBIN TIME) Comments: Items in this order include: Draw Charge[i], Protime & INRDoes patient have a artifical heart valve? No ([facility]) (98641) 8. Saturday Dosage 7.5 mg (Normal) 9. [...] order include: Draw Charge[i], Protime & INR (10708) Draw Drawn (Normal) -Dec-2014 PT (PROTHROMBIN TIME) Comments: Items in this order include: Draw Charge[i], Protime & INRDoes patient have a artifical heart valve? No 09:28 ([facility]) (95105) 9. Saturday Dosage 5.0 mg (Normal) 7. [...] order include: Draw Charge[i], Protime & INR (23936) Draw Drawn (Normal) -Oct-2014 PT (PROTHROMBIN TIME) Comments: Items in this order include: Draw Charge[i], Protime & INRDoes patient have a artifical heart valve? No 10:48 ([facility]) (22317) 9. Saturday Dosage 7.5 mg (Normal) 8. [...] order include: Draw Charge[i], Protime & INR (77348) Draw Drawn (Normal) 29-Nov-2014 PT (PROTHROMBIN TIME) Comments: Items in this order include: Draw Charge[i], Protime & INRDoes patient have a artifical heart valve? No 10:28 ([facility]) (29841) 9. Saturday Dosage 5.0 mg (Normal) 8. [...] order include: Draw Charge[i], Protime & INR (58061) Draw Drawn (Normal) 21-Sep-2014 PT (PROTHROMBIN TIME) Comments: Items in this order include: Draw Charge[i], Protime & INRDoes patient have a artifical heart valve? No 10:08 ([facility]) (69849) 9. Saturday Dosage 5.0 mg (Normal) 7. [...] order include: Draw Charge[i], Protime & INR (45336) Draw Drawn (Normal) 24-Aug-2014 Routine Venipuncture Comments: Items in this order include: Protime & INR, Draw Charge[i] 09:59 (00130) Draw Drawn (Normal) 09:59 PT (PROTHROMBIN TIME) Comments: Items in this order include: Protime & INR, Draw Charge[i]INR value > 3.0 given to Estella by Beny Buckley patient have a artifical heart valve? No ([facility]) (57935) 9. Saturday Dosage 7.5 mg (Normal) 7. [...] Panel, Hemoglobin A1C, Urine Microalbumin, CBC ONE! (89223) manual diff Not Indicated (Normal) mpv 9.60 [...] Metabolic Panel, Hemoglobin A1C, Urine Microalbumin, CBC (29014) U A:C RATIO <30 mg/g Normal Range: <30 mg/g Normal (Normal) U CREAT 200 mg/dL (Normal) Range: 10-300 U ALB 80 mg/L (Abnormal) Range: 10 mg/L 09:59 HEMOGLOBIN GLYCLATED Comments: Items in this order include: Digoxin , PSA, Basic Metabolic Panel, Hemoglobin A1C, Urine Microalbumin, CBC (HGB A1C) (74132) A1C 5.9 % (Normal) Range: 4.6-6.2 Comments: Increased risk of diabetes. 09:59 [facility] (56132) Comments: Items in this order include: Digoxin, [...] Panel, Hemoglobin A1C, Urine Microalbumin, CBC ANTIGEN) (79630) PSA 7.11 ng/mL (Abnormal) Range: 0.00-4.00 09:59 DIGOXIN (57510) Comments: Items in this order include: Digoxin, PSA , Basic Metabolic Panel, Hemoglobin A1C, Urine Microalbumin, CBCTime of Last Dose? 08/23/2014 8:00 AMDosage? 0.25 DIG 0.36 ng/mL (Abnormal) Range: 0.90-2.00 05-Aug-2014 PT (PROTHROMBIN TIME) Comments: Items in this order include: Draw Charge[i], Protime & INRDoes patient have a artifical heart valve? No 10:48 ([facility]) (80779) 8. Saturday Dosage 7.5 mg (Normal) 9. [...] order include: Draw Charge[i], Protime & INR (72528) Draw Drawn (Normal) 03-Jun-2014 PT (PROTHROMBIN TIME) Comments: Items in this order include: Draw Charge[i], Protime & INRDoes patient have a artifical heart valve? No 13:56 ([facility]) (57023) 9. Saturday Dosage 7.5 mg (Normal) 8. [...] order include: Draw Charge[i], Protime & INR (67838) Draw Drawn (Normal) PT (PROTHROMBIN TIME) Comments: Items in this order include: Protime & INRDoes patient have a artifical heart valve? No 14:25 ([facility]) (22577) 9. Saturday Dosage 5.0 mg (Normal) 8. [...] this order include: Draw Charge[i], PSA ANTIGEN) (22517) PSA 6.15 ng/mL (Abnormal) Range: 0.00-4.00 14:25 Routine Venipuncture Comments: A copy of this report will be faxed to: Bettie Boswell in this order include: Draw Charge[i], PSA (56214) Draw Drawn (Normal) HEMOGLOBIN GLYCLATED Comments: Items in this order include: Hemoglobin A1C, Draw Charge[i], Comprehensive Metabolic Panel, Uric Acid 15:06 (HGB A1C) (08923) A1C 5.7 % (Normal) Range: 4.6-6.2 15:06 CMP (80870) Comments: Items in this order include: Hemoglobin [...] (Normal) Range: 135-145 15:06 URIC ACID BLOOD (67114) Comments: Items in this order include: Hemoglobin A1C, Draw Charge[i], Comprehensive Metabolic Panel, Uric Acid Uric Acid 8.0 mg/dL (Abnormal) Range: 3.6-7.7 15:06 Routine Venipuncture Comments: Items in this order include: Hemoglobin A1C, Draw Charge[i], Comprehensive Metabolic Panel, Uric Acid (52796) Draw Drawn (Normal) -January-2014 PT (PROTHROMBIN TIME) Comments: Items in this order include: Draw Charge[i], Protime & INRDoes patient have a artifical heart valve? No 14:27 ([facility]) (02525) 8. Saturday Dosage 5.0 mg (Normal) 9. [...] order include: Draw Charge[i], Protime & INR (07330) Draw Drawn (Normal) 26-Oct-2013 Draw Charge[i] Comments: Items in this order include: Basic Metabolic Panel, Draw Charge[i] 17:08 Draw Drawn (Normal) 17:05 [facility] (88974) Comments: Items in this order include: Basic [...] patient have a artifical heart valve? No ([facility]) (69562) 9. Saturday Dosage 5.0 mg (Normal) 7. [...] order include: Draw Charge[i], Protime & INR (97712) Draw Drawn (Normal) 15-Sep-2013 PSA (PROSTATE SPECIFIC Comments: A copy of this report will be faxed to: Bettie Boswell in this order include: A COPY TO [kyung] PSAPSA allowed more than once a year due to being a Diagonistic PSA not a screening PSA 11:05 ANTIGEN) (83754) PSA 5.40 ng/mL (Abnormal) Range: 0.00-4.00 11:05 [...] this order include: Comprehensive Metabolic Panel, Hemoglobin I8CFiar Hgb A1C was ran 99 Days ago. Check by MARGARITA 10:38 (HGB A1C) (01699) A1C 5.9 % (Normal) Range: 4.6-6.2 Comments: Increased risk of diabetes. 10:38 CMP (94180) Comments: Items in this order include: Comprehensive Metabolic Panel, Hemoglobin Y5HYcjy Hgb A1C was ran 99 Days ago. [...] patient have a artifical heart valve? No ([facility]) (61640) 9. Saturday Dosage 5.0 (cycle of 5,5,7.5 [...] order include: Draw Charge[i], Protime & INR (89908) Draw Drawn (Normal) 10:38 DIGOXIN (98764) Comments: Items in this order include: DigoxinTime of Last Dose? 08/06/2013 8:30 AMDosage? 0.25 mg daily DIG 0.48 ng/mL (Abnormal) Range: 0.90-2.00 30-Apr-2013 HEMOGLOBIN GLYCLATED Comments: Items in this order include: Comprehensive Metabolic Panel, CBC, Hemoglobin [id number] Hgb A1C was ran 225 Days ago. Check by ms 11:58 (HGB A1C) (49044) A1C 6.1 % (Normal) Range: 4.6-6.2 11:58 CBC MALE- ORDER THIS Comments: Items in this order include: Comprehensive Metabolic Panel, CBC, Hemoglobin S9FWmfs Hgb A1C was ran 225 Days ago. Check by ms ONE! (49661) manual diff Not Indicated (Normal) mpv 4.88 [...] 6.15 10*3/uL (Normal) Range: 4.50-10.50 11:58 CMP (75275) Comments: Items in this order include: Comprehensive Metabolic Panel, CBC, Hemoglobin Y0BActa Hgb A1C was ran 225 Days ago. [...] patient have a artifical heart valve? No ([facility]) (65541) 4. Saturday Dosage Repeat mg (Normal) 3. Saturday Dosage 7.5 mg (Normal) 2. Saturday Dosage 5.0 mg (Normal) 1. Saturday Dosage 5.0 mg (Normal) INR 2.60 (Normal) PT 26.8 s (Abnormal) Range: 10.4-12.4 -March-2013 PT (PROTHROMBIN TIME) Comments: Items in this order include: Draw Charge[i], Protime & INRDoes patient have a artifical heart valve? No 15:12 ([facility]) (92554) 5. Dosage Repeat mg (Normal) 4. Saturday Dosage 5.0 mg (Normal) 3. Saturday Dosage 5.0 mg (Normal) 2. Saturday Dosage 7.5 mg (Normal) INR 2.31 (Normal) PT 24.0 s (Abnormal) Range: 10.4-12.4 15:12 Routine Venipuncture Comments: Items in this order include: Draw Charge[i], Protime & INR (43926) Draw Drawn (Normal) PSA (PROSTATE SPECIFIC Comments: A copy of this report will be faxed to: Bettie Boswell in this order include: PSA, Draw Charge[i]PSA allowed more than once a year due to being a Diagonistic PSA not a screening PSA 10:00 ANTIGEN) (72958) PSA 5.60 ng/mL (Abnormal) Range: 0.00-4.00 10:00 [...] patient have a artifical heart valve? No ([facility]) (26810) 3. Saturday Dosage Repeat mg (Normal) 2. Saturday Dosage 7.5 mg (Normal) 1. Saturday Dosage 5.0 mg (Normal) INR 2.64 (Normal) PT 27.2 s (Abnormal) Range: 10.4-12.4 10:09 Routine Venipuncture Comments: Items in this order include: Draw Charge[i], Protime & INR (78860) Draw Drawn (Normal) 16-Dec-2012 PT (PROTHROMBIN TIME) Comments: Items in this order include: Draw Charge[i], Protime & INRDoes patient have a artifical heart valve? No 10:46 ([facility]) (24080) 4. Saturday Dosage Repeat mg (Normal) 3. Saturday Dosage 5.0 mg (Normal) 2. Saturday Dosage 7.5 mg (Normal) INR 2.13 (Normal) PT 22.2 s (Abnormal) Range: 10.4-12.4 10:46 Routine Venipuncture Comments: Items in this order include: Draw Charge[i], Protime & INR (34955) Draw Drawn (Normal) 26-Nov-2012 Routine Venipuncture Comments: Items in this order include: Protime & INR, Draw Charge[i] 15:05 (89917) Draw Drawn (Normal) 15:05 PT (PROTHROMBIN TIME) Comments: Items in this order include: Protime & INR, Draw Charge[i]Does patient have a artifical heart valve? No ([facility]) (32688) 4. Saturday Dosage 5.0 Repeat mg (Normal) 3. Saturday Dosage 5.0 mg (Normal) 2. Saturday Dosage 7.5 mg (Normal) INR 1.34 (Normal) PT 14.4 s (Abnormal) Range: 10.4-12.4 30-Oct-2012 PT (PROTHROMBIN TIME) Comments: Items in this order include: Draw Charge[i], Protime & INRINR value > 3.0 given to BW by Froy Chávez patient have a artifical heart valve? No 10:38 ([facility]) (92770) 7. Saturday Dosage 7.5 mg (Normal) 6. [...] order include: Draw Charge[i], Protime & INR (55503) Draw Drawn (Normal) 11:33 BMP Comments: Items [...] Dose? 10/29/2012 8:00 PMDosage? 0.25 mg Daily (90062) DIG 1.64 ng/mL (Normal) Range: 0.90-2.00 14-Oct-2012 PSA (PROSTATE SPECIFIC Comments: A copy of this report will be faxed to: Bettie Boswell in this order include: Draw Charge[i], Protime & INR, PSAPSA allowed more than once a year due to being a Diagonistic PSA not a screening PSA 10:25 ANTIGEN) (64170) PSA 8.11 ng/mL (Abnormal) Range: 0.00-4.00 10:25 PT (PROTHROMBIN TIME) Comments: PSA allowed more than once a year due to being a Diagonistic PSA not a screening PSACoumadin dosage=5,5,5,5,7.5 repeatDoes patient have a artifical heart valve? No ([facility]) (24015) 7. Saturday Dosage 7.5 mg (Normal) 6. [...] a Diagonistic PSA not a screening PSA (00568) Draw Drawn (Normal) 12-Sep-2012 PT (PROTHROMBIN TIME) Comments: Items in this order include: Draw Charge[i], Protime & INRDoes patient have a artifical heart valve? No 09:16 ([facility]) (77513) 6. Saturday Dosage Repeat mg (Normal) 5. Dosage 7.5 mg (Normal) 4. Saturday Dosage 5.0 mg (Normal) 3. Saturday Dosage 5.0 mg (Normal) 2. Saturday Dosage 5.0 mg (Normal) 1. Saturday Dosage 5.0 mg (Normal) INR 2.48 (Normal) PT 25.7 s (Abnormal) Range: 10.4-12.4 09:16 Routine Venipuncture Comments: Items in this order include: Draw Charge[i], Protime & INR (61839) Draw Drawn (Normal) 18-Aug-2012 PT (PROTHROMBIN TIME) Comments: Items in this order include: Protime & INRDoes patient have a artifical heart valve? No 11:44 ([facility]) (02764) 7. Saturday Dosage 5.0 mg (Normal) 6. [...] Days ago. Check by KB (HGB A1C) (98712) A1C 6.2 % (Normal) Range: 4.6-6.2 Comments: High risk of diabetes. 31-Jul-2012 PT (PROTHROMBIN TIME) Comments: Items in this order include: Draw Charge[i], Protime & INRINR value > 3.0 given to Estella by Beny Buckley patient have a artifical heart valve? No 13:32 ([facility]) (49819) 7. Saturday Dosage 5.0 mg (Normal) 6. [...] order include: Draw Charge[i], Protime & INR (01483) Draw Drawn (Normal) 23-Jun-2012 PSA (PROSTATE SPECIFIC Comments: A copy of this report will be faxed to: Bettie Boswell in this order include: Draw Charge[i], Protime & INR, PSAPSA allowed more than once a year due to being a Diagonistic PSA not a screening PSA 15:50 ANTIGEN) (24223) PSA 8.05 ng/mL (Abnormal) Range: 0.00-4.00 15:50 PT (PROTHROMBIN TIME) Comments: A copy of this report will be faxed to: Bettie Boswell in this order include: Draw Charge[i], Protime & INR , PSAPSA allowed more than once a year due to being a Diagonistic PSA not a screening ([facility]) (17732) PSADoes patient have a artifical heart valve? [...] a Diagonistic PSA not a screening PSA (08054) Draw Drawn (Normal) 13-May-2012 Draw Charge[i] Comments: [...] results to dr. hema boswell 14:28 ANTIGEN) (62233) PSA 16.45 ng/mL (Abnormal) Range: 0.00-4.00 14:28 PT (PROTHROMBIN TIME) Comments: Coumadin Dosage=5,5,5,7.5 Repeat. Took 7.5 on 04-27-12. ([facility]) (03834) 5. Dosage 7.5 Repeat mg (Normal) 4. Saturday Dosage 5.0 mg (Normal) 3. Saturday Dosage 5.0 mg (Normal) 2. Saturday Dosage 5.0 mg (Normal) 1. Saturday Dosage 7.5 mg (Normal) INR 2.17 (Normal) PT 22.7 s (Abnormal) Range: 10.4-12.4 14:28 Routine Venipuncture (06304) Draw Drawn (Normal) 13-May-2012 PSA (PROSTATE SPECIFIC Comments: A copy of this report will be faxed to: Bettie Boswell in this order include: PSA, Draw Charge[i]PSA allowed more than once a year due to being a Diagonistic PSA not a screening PSA 09:20 ANTIGEN) (27622) PSA 11.30 ng/mL (Abnormal) Range: 0.00-4.00 TSH (THYROID Comments: Items in this order include: TSH 16:40 STIMULATING HORMONE) (05463) TSH 1.36 uIU/ml (Normal) Range: 0.34-5.60 14:50 PT (PROTHROMBIN TIME) Comments: Items in this order include: Draw Charge[i], Basic Metabolic Panel, Hemoglobin A1C, Protime & INRLast Hbg A1C was ran 218 Days ago. Check by DL ([facility]) (37887) 5. Dosage Repeat mg (Normal) 4. Saturday [...] ran 218 Days ago. Check (HGB A1C) (69852) by DLplease draw enough blood so if [...] ran 218 Days ago. Check by DL (15960) Draw Drawn (Normal) DIGOXIN, DRUG ASSAY Comments: Items in this order include: CBC, Comprehensive Metabolic Panel, CKI, Digoxin, Draw Charge[i] 09:08 (68451) DIG 0.38 ng/mL (Abnormal) Range: 0.90-2.00 09:08 CK Comments: Items in this order include: CBC, Comprehensive Metabolic Panel, CKI, Digoxin, Draw Charge[i] CKI 143 U/L (Normal) Range: 39-308 09:08 CMP (21698) Comments: Items in this order include: CBC, [...] Metabolic Panel, CKI, Digoxin, Draw Charge[i] ONE! (89787) manual diff Not Indicated (Normal) mpv 6.84 [...] order include: Protime & INR, Draw Charge[i] (14067) Draw Drawn (Normal) 16:45 PT (PROTHROMBIN TIME) Comments: Items in this order include: Protime & INR, Draw Charge[i]Coumadin doasage=5,5,7.5 Repeat ([facility]) (41479) 7. Saturday Dosage 5.0 mg (Normal) 6. [...] order include: Draw Charge[i], PSA 11:11 ANTIGEN) (84690) PSA 6.92 ng/mL (Abnormal) Range: 0.00-4.00 11:11 Routine Venipuncture Comments: A copy of this report will be faxed to: Bettie Boswell in this order include: Draw Charge[i], PSA (51380) Draw Drawn (Normal) 17-Oct-2011 Routine Venipuncture 10:18 (85685) Draw Drawn (Normal) 10:18 TESTOSTERONE, FREE, Comments: Items in this order include: Protime & INR, Draw Charge[i], TESTOSTERONE, FREE, BIOAVAILABLE, AND TOTAL, LC/MS/ MSTesting performed at: [facility] [place], [address] [address] [place], [place], [address], Escalator Installer: Michael Chávez [facility] TOTAL, LC/MS/MS ALBUMIN,SERUM [...] and benefits counseling. 10:18 PT (PROTHROMBIN TIME) ([facility]) (91799) 7. Saturday Dosage 5.0 mg (Normal) 6. [...] Panel, Hemoglobin A1C, Draw Charge[i] (HGB A1C) (28888) A1C 6.1 % (Normal) Range: 4.6-6.2 13:29 [...] (Normal) Range: 135-145 13:29 DIGOXIN, DRUG ASSAY (53273) DIG 0.85 ng/mL (Abnormal) Range: 0.90-2.00 07-Aug-2011 TESTOSTERONE, FREE, Comments: Items in this order include: TESTOSTERONE, FREE, BIOAVAILABLE, AND TOTAL, LC/MS/MSTesting performed at: [facility] [place], [address] [address] , [place] , [address], [place] 12:53 WEAKLY BOUND AND TOTAL ratory Director: Michael Chávez MD.[facility] (89441) ALBUMIN,SERUM 4.4 g/dL (Normal) Range: 3.6-5.1 SEX [...] INR, Draw Charge[i]no change in coumadin dose ([facility]) (71320) 7. Saturday Dosage 7.5 mg (Normal) 6. [...] Metabolic Panel, Protime & INR, Draw Charge[i] ([facility]) (57841) 7. Saturday Dosage 5.0 mg (Normal) 5. [...] Boswell in this order include: PSA ANTIGEN) (70461) PSA 5.95 ng/mL (Abnormal) Range: 0.00-4.00 CBC-MALE- ORDER THIS Comments: Items in this order include : Hemoglobin A1C, Comprehensive Metabolic Panel, CBC 11:56 ONE! (73976) manual diff Not Indicated (Normal) mpv 7.65 [...] 6.24 10*3/uL (Normal) Range: 4.50-10.50 11:56 CMP (00458) Comments: Items in this order include: Hemoglobin [...] this order include: Digoxin, Draw Charge[i] 15:17 (76418) DIG 1.18 ng/mL (Normal) Range: 0.90-2.00 HEMOGLOBIN GLYCLATED Comments: Items in this order include: Hemoglobin A1C, Comprehensive Metabolic Panel, CBC 11:56 (HGB A1C) (14076) A1C 6.6 % (Abnormal) Range: 4.6-6.2 Comments: Consistent with diabetes. 13:48 PT (PROTHROMBIN TIME) Comments: change to coumadin 5mg x 2 day then 7.5mg x1 repeat the cycle; Items in this order include: Protime & INR, Draw Charge[i]cyclechange to coumadin 5mg x 2 day then 7.5mg x1 repeat the ([facility]) (65769) 6. Saturday Dosage 7.5 mg (Normal) 7. [...] & INR, PSA, Draw Charge[i] 09:43 ANTIGEN) (88506) PSA 5.84 ng/mL (Abnormal) Range: 0.00-4.00 09:43 PT (PROTHROMBIN TIME) Comments: no change in coumadin; no change in coumadin ([facility]) (52742) 7. Saturday Dosage 7.5 mg (Normal) 6. Saturday Dosage 5.0 mg (Normal) 5. Dosage 7.5 mg (Normal) 4. Saturday Dosage 5.0 mg (Normal) 3. Saturday Dosage 5.0 mg (Normal) 1. Saturday Dosage 5.0 mg (Normal) 2. Saturday Dosage 7.5 mg (Normal) INR 3.45 (Normal) PT 32.9 s (Abnormal) Range: 10.4-12.4 23-Nov-2010 PT (PROTHROMBIN TIME) 10:03 ([facility]) (50673) 6. Saturday Dosage 7.5 mg (Normal) 7. Saturday Dosage 5 mg (Normal) 1. Saturday Dosage 5 mg (Normal) 2. Saturday Dosage 7.5 mg (Normal) 3. Saturday Dosage 5 mg (Normal) 4. Saturday Dosage 7.5 mg (Normal) 5. Dosage 5 mg (Normal) INR 2.16 (Normal) PT 21.0 s (Abnormal) Range: 10.4-12.4 19-Oct-2010 PT (PROTHROMBIN TIME) 15:16 ([facility]) ([id number]) 6. Saturday Dosage 5 mg (Normal) 7. Saturday Dosage 7.5 mg (Normal) 3. Saturday Dosage 7.5 mg (Normal) 4. Saturday Dosage 5 mg (Normal) 5. Dosage 7.5 mg (Normal) 1. Saturday Dosage 7.5 mg (Normal) 2. Saturday Dosage 5 mg (Normal) INR 2.13 (Normal) PT 20.7 s (Abnormal) Range: 10.4-12.4 12-Sep-2010 PT (PROTHROMBIN TIME) 11:03 ([facility]) ([id number]) INR 2.57 (Normal) PT (PROTHROMBIN TIME) 24.8 s (Abnormal) Range: 11.5-13.5 22-Aug-2010 PT (PROTHROMBIN TIME) 13:41 ([facility]) ([id number]) 09-Aug-2010 PSA, MEDICARE (G0103) Comments: please fax to dr hema boswell 09:54 PSA (Medicare) 4.83 ng/mL (Abnormal) Range: 0 - 4 09:34 PT (PROTHROMBIN TIME) ([facility]) (54254) INR 2.68 (Normal) PT (PROTHROMBIN TIME) 25.8 s (Abnormal) Range: 11.5-13.5 27-Jun-2010 PT (PROTHROMBIN TIME) 08:38 ([facility]) ([id number]) 26-Jun-2010 PT (PROTHROMBIN TIME) 16:21 ([facility]) ([id number]) INR 1.89 (Normal) PT (PROTHROMBIN TIME) 18.4 s (Abnormal) Range: 11.5-13.5 Treatment Plan PT (PROTHROMBIN TIME) ([facility]) ([id number]); Ordered: 11/01/2015; Note: Verbal order from Dr. James RomeroLIPID PANEL ([id number]); Ordered: 11/01/2015; Note: Verbal order from Dr. 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 He said he is having quite a bit of pain with the nodule and some occasional drainage. Seems to be recurrent for him. 09:10 to 09:52 [facility] Office Visit - PG (pyogenic granuloma) (686.1 [...] nail problems": He continues with his usual medications.[facility] Lab entry only - Encounter for long-term (current) use of anticoagulants ( V58.61 | Z79.01) On 07-Jul-2015 [facility] 16:55 to 16:56 Office Visit - [...] the stairs and I have to crawl. [facility] Historical Summary On [facility] 12:33 to 12:36 Lab entry only - Encounter for long-term (current) use of anticoagulants ( V58.61 | Z79.01) On [facility] 17:37 to 17:39 Lab entry only - Elevated PSA (790.93) On [facility] 10:10 to 10:11 Lab entry only - Encounter for long-term (current) use of anticoagulants ( V58.61 | Z79.01), Encounter for long-term (current) use of anticoagulants ( V58.61 | Z79.01) On 14-Jan-2015 [facility] 14:52 to 14:53 Lab entry only - Encounter for long-term (current) use of anticoagulants ( V58.61 | Z79.01), Encounter for long-term (current) use of anticoagulants ( V58.61 | Z79.01) On 29-Nov-2014 [facility] 12:31 to 15:09 Medication Entry - Diabetes mellitus (250.00 | E11.9) On 12-Nov-2014 [facility] 11:46 to 11:53 Medication Entry - Cellulitis, leg (682.6 | L03.119) On 11-Nov-2014 [facility] 09:48 to 10:00 Office Visit - [...] "Transition into care": He feels things are improved.[facility] Historical Summary On 27-Oct-2014 [facility] 15:03 to 15:08 Lab entry only - Fibrillation, atrial (427.31), Encounter for long-term ( current) use of anticoagulants (V58.61 | Z79.01) On 18-Oct-2014 [facility] 17:08 to 17:09 Medication Entry - Gout (274.9 | M10.9) On 12-Oct-2014 [facility] 16:17 to 16:22 Lab entry only - Encounter for long-term (current) use of anticoagulants ( V58.61 | Z79.01) On 21-Sep-2014 [facility] 15:31 to 15:33 Radiology Visit - Carotid stenosis (433.10 | I65.29) On 14-Sep-2014 [facility] 09:33 to 09:36 Lab entry only - Encounter for long-term (current) use of anticoagulants ( V58.61 | Z79.01) On 24-Aug-2014 [facility] 16:31 to 16:34 Office Visit - Health education (V65.40 | Z71.9), Prevnar (PCV13)FOR MEDICARE USE ONLY Pneumovax injection (V03.82) 10017, Encounter for long-term ( current) use of [...] lifeline screening. He mentions the "discoloration" of ankles.[facility] Historical Summary On 11-Aug-2014 [facility] 16:16 to 16:19 Lab entry only - Fibrillation, atrial (427.31), Encounter for long-term ( current) use of anticoagulants (V58.61 | Z79.01) On 06-Aug-2014 [facility] 16:41 to 16:43 Medication Entry - Benign essential hypertension (401.1 | I10) On 21-Jun-2014 [facility] 11:12 to 11:14 Lab entry only - Encounter for long-term (current) use of anticoagulants ( V58.61 | Z79.01) On 03-Jun-2014 [facility] 16:13 to 16:15 Lab entry only - Encounter for long-term (current) use of anticoagulants ( V58.61 | Z79.01) On [facility] 13:22 to 13:23 Lab entry only - Elevated PSA (790.93), Encounter for long-term (current) use of anticoagulants (V58.61 | Z79.01) On [facility] 14:27 to 14:28 Office [...] thing in the morning and on stairs. [facility] Historical Summary On 28-Dec-2013 [facility] 12:26 to 12:29 Medication Entry - Encounter for long-term (current) use of anticoagulants ( V58.61 | Z79.01), Diabetes mellitus (250.00 | E11.9), Fibrillation, atrial ( 427.31) On 03-Nov-2013 [facility] 09:01 to 11:53 Medication Entry - Fibrillation, atrial (427.31), Diabetes mellitus (250.00 | E11.9) On 30-Oct-2013 [facility] 15:55 to 16:00 Lab entry only - Encounter for long-term (current) use of anticoagulants ( V58.61 | Z79.01) On 27-Oct-2013 [facility] 17:57 to 17:59 Office [...] M.D. after being in the hospital at [facility] on 10/16/13 & discharged on 10/17/13 dx jasmeet diaz, inr was done prior to visit.) . Note for "Transition into care": He passed a kidney stone a week ago.[facility] Historical Summary On 23-Oct-2013 [facility] 14:42 to 14:45 Lab entry only - Encounter for long-term (current) use of anticoagulants ( V58.61 | Z79.01) On 20-Oct-2013 [facility] 16:31 to 16:33 Lab entry only - Encounter for long-term (current) use of anticoagulants ( V58.61 | Z79.01) On 16-Sep-2013 [facility] 10:14 to 10:15 Lab entry only - Elevated PSA (790.93) On 15-Sep-2013 [facility] 11:11 to 11:12 Lab entry only - Encounter for long-term (current) use of anticoagulants ( V58.61 | Z79.01) On 07-Aug-2013 [facility] 14:32 to 14:33 Lab entry only - Benign essential hypertension (401.1 | I10), Diabetes mellitus (250.00 | E11.9) On 07-Aug-2013 [facility] 11:18 to 11:19 Lab entry only - Encounter for long-term (current) use of anticoagulants ( V58.61 | Z79.01) On 01-May-2013 [facility] 10:33 to 10:38 Office [...] He did miss some meds while he traveled.[facility] Historical Summary On 29-Apr-2013 [facility] 11:46 to 11:49 Lab entry only - Encounter for long-term (current) use of anticoagulants ( V58.61 | Z79.01) On [facility] 16:39 to 16:42 Lab entry only - Encounter for long-term (current) use of anticoagulants ( V58.61 | Z79.01) On [facility] 19:40 to 19:42 Lab entry only - Elevated PSA (790.93) On [facility] 12:03 to 12:07 Office [...] for "Cough": He has not had an antibiotic.[facility] Lab entry only - Encounter for long-term (current) use of anticoagulants ( V58.61 | Z79.01) On 16-Dec-2012 [facility] 18:21 to 18:23 Lab entry only - Encounter for long-term (current) use of anticoagulants ( V58.61 | Z79.01) On 27-Nov-2012 [facility] 16:52 to 16:53 Lab entry only - Encounter for long-term (current) use of anticoagulants ( V58.61) On 26-Nov-2012 [facility] 15:04 to 15:05 Office [...] a 3 month follow up with Dr. Kimple,M.D. , complains of both lower legs skin color brown has increased & my ankle muscles are more sore .). Note for "Follow up for chronic condition(s)" : It is worse first thing in the morning and on stairs.[facility] Historical Summary On 29-Oct-2012 [facility] 16:15 to 16:17 Lab entry only - Encounter for long-term (current) use of anticoagulants ( V58.61) On 15-Oct-2012 [facility] 09:51 to 09:57 Lab entry only - Encounter for long-term (current) use of anticoagulants ( V58.61), Elevated PSA (790.93) On 14-Oct-2012 [facility] 10:25 to 10:26 Lab entry only - Encounter for long-term (current) use of anticoagulants ( V58.61) On 12-Sep-2012 [facility] 13:44 to 13:45 Medication Entry - Edema (782.3), Fibrillation, atrial (427.31) On 20-Aug-2012 [facility] 11:10 to 11:12 Medication Entry - Fibrillation, atrial (427.31), Edema (782.3) On 19-Aug-2012 [facility] 17:29 to 18:11 Medication Entry - Encounter for long-term (current) use of anticoagulants ( V58.61), Fibrillation, atrial (427.31), Diabetes mellitus (250.00) On 2011 [facility] 17:44 to 17:53 Office Visit - 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), Inflamed seborrheic keratosis (702.11), Hyperglycemia (790.29), Encounter for long-term (current) use of anticoagulants (V58.61), Fibrillation, atrial (427.31) On 01-Aug-2012 Encounter Reason: Follow up for chronic condition - The patient feels well with minor complaints (here today for a 3 month follow up with Dr. Romero ) .[facility] 09:34 to 10:39 Medication Entry - Encounter for long-term (current) use of anticoagulants ( V58.61) On 31-Jul-2012 [facility] 18:21 to 18:22 Historical Summary On 31-Jul-2012 [facility] 11:40 to 11:42 Lab entry only - Encounter for long-term (current) use of anticoagulants ( V58.61) On 23-Jun-2012 [facility] 18:47 to 18:52 Lab entry only - Elevated PSA (790.93), Encounter for long-term (current) use of anticoagulants (V58.61) On 23-Jun-2012 [facility] 15:48 to 15:53 Office Visit - Adjustment disorder with depressed mood (309.0), Encounter for long-term (current) use of anticoagulants (V58.61), Elevated PSA (790.93) On Encounter Reason: Follow up for chronic condition - The patient feels well with minor complaints (here for a 6 week follow up visit do to a new medication but did not start the medication).[facility] 11:19 to 13: 39 Historical Summary On 30-Apr-2012 [facility] 11:50 to 11:52 Lab entry only - Encounter for long-term (current) use of anticoagulants ( V58.61) On 28-Apr-2012 [facility] 17:23 to 17:26 Lab entry only - Elevated PSA (790.93), Encounter for long-term (current) use of anticoagulants (V58.61) On 28-Apr-2012 [facility] 14:19 to 14:22 Office [...] , had lab done prior to appt today).[facility] Lab entry only - Edema (782.3), Hyperglycemia (790.29), Encounter for long- term (current) use of anticoagulants (V58.61) On [facility] 11:06 to 11:14 Lab entry only - Elevated PSA (790.93), Fibrillation, atrial (427.31), Edema ( 782.3) On [facility] 09:02 to 09:05 Lab entry only - Encounter for long-term (current) use of anticoagulants ( V58.61) On [facility] 16:44 to 16:45 Medication Entry On 26-Oct-2011 [facility] 13:30 to 13:32 Lab entry only - Elevated PSA (790.93) On 23-Oct-2011 [facility] 11:01 to 11:04 Lab entry only - Encounter for long-term (current) use of anticoagulants ( V58.61), Low testosterone (257.2) On 17-Oct-2011 [facility] 10:15 to 10:17 Medication Entry - Fibrillation, atrial (427.31) On 04-Oct-2011 [facility] 09:26 to 09:38 Medication Entry - Fibrillation, atrial (427.31), Edema (782.3), Encounter for long-term (current) use of anticoagulants (V58.61), Benign prostatic hypertrophy without lower urinary tract symptoms (LUTS) (600.00) On 02-Oct-2011 [facility] 18:56 to 19:02 Medication Entry - Encounter for long-term (current) use of anticoagulants ( V58.61), Fibrillation, atrial (427.31), Edema (782.3) On 26-Sep-2011 [facility] 11:06 to 11:11 Medication Entry - Fibrillation, atrial (427.31), Encounter for long-term ( current) use of anticoagulants (V58.61) On 24-Sep-2011 [facility] 10:41 to 10:49 Lab entry only - Low testosterone (257.2) On 10-Aug-2011 [facility] 13:03 to 13:05 Lab entry only - Hyperglycemia (790.29), Encounter for long-term (current) use of anticoagulants (V58.61), Fibrillation, atrial (427.31) On 08-Aug-2011 [facility] 13:27 to 13:29 Office [...] he 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." [facility] Historical Summary On 06-Aug-2011 [facility] 12:22 to 12:24 Medication Entry - Fibrillation, atrial (427.31) On 05-Jun-2011 [facility] 08:54 to 08:59 Lab entry only - Encounter for long-term (current) use of anticoagulants ( V58.61) On 15-May-2011 [facility] 18:48 to 18:50 Office [...] up is diabetes, hypertension, cardiovascular disorder and other.[facility] Medication Entry - Benign prostatic hypertrophy without lower urinary tract symptoms (LUTS) (600.00) On 19-Apr-2011 [facility] 08:49 to 08:51 Lab entry only - Benign prostatic hypertrophy without lower urinary tract symptoms (LUTS) (600.00) On 10-Apr-2011 [facility] 15:15 to 15:19 Office [...] seeing dr. boswell the middle of apr.). [facility] Historical Summary On [facility] 16:05 to 16:18 Lab entry only - Encounter for long-term (current) use of anticoagulants ( V58.61) On [facility] 17:34 to 17:36 Lab entry only - Encounter for long-term (current) use of anticoagulants ( V58.61), Elevated PSA (790.93) On [facility] 09:42 to 09:43 Lab entry only - Encounter for long-term (current) use of anticoagulants ( V58.61) On 24-Nov-2010 [facility] 08:55 to 08:57 Lab entry only - Encounter for long-term (current) use of anticoagulants ( V58.61) On 20-Oct-2010 [facility] 14:42 to 14:46 Historical Summary - Encounter for long-term (current) use of anticoagulants ( V58.61) On 13-Sep-2010 [facility] 10:53 to 10:59 Historical Summary 12-Sep-2010 to 13-Sep-2010 [facility] Lab entry only - Encounter for long-term (current) use of anticoagulants ( V58.61) On 14-Aug-2010 [facility] 17:44 to 17:49 Historical Summary - Elevated PSA (790.93) 09-Aug-2010 to 15-Aug-2010 [facility] Lab entry only - Encounter for long-term (current) use of anticoagulants ( V58.61) 27-Jun-2010 to 28-Jun-2010 [facility] Lab entry only - Encounter for long-term (current) use of anticoagulants ( V58.61) On 26-Jun-2010 [facility] 16:21 to 22:23 Insurance Vijay Yuan; a guarantorMedicare [facility] [employer]
--- OUTSIDE RECORDS SUMMARY | 2017-10-22 17:44 | External Medical Summary | Continuity of Care Document ---
:1940 Author Organization [facility] Address [address] [place] [address] Phone Care Team Providers Name Role Phone [...] 90 days Quantity: 90 {Capsule} Refills: 4 Ordered:01-Dec-2015 James Romero MD Start 01-Dec-2015 Active DILTIAZEM HCL ER, 240MG (Oral Capsule Extended Release 24 Hour) 1 Capsule ER 24HR daily for 90 days Quantity: 90 {Capsule} Refills: 4 Ordered:01-Dec-2015 James Romero MD Start 01-Dec-2015 Active ELIQUIS, 5MG (Oral Tablet) 1 (one) [...] 90 days Quantity: 90 {Tablet} Refills: 4 Ordered:01-Dec-2015 James Romero MD Start 01-Dec-2015 Active LISINOPRIL, 10MG (Oral Tablet) one tab Tablet daily for 90 days Quantity: 90 {Tablet} Refills: 4 Ordered:01-Dec-2015 James Romero MD Start 01-Dec-2015 Active METFORMIN HCL, 500MG (Oral Tablet) 1 Tablet daily for 90 days Quantity: 90 {Tablet} Refills: 4 Ordered:01-Dec-2015 James Romero MD Start 01-Dec-2015 Active METFORMIN HCL, 500MG (Oral Tablet) 1 Tablet daily for 90 days Quantity: 90 {Tablet} Refills: 4 Ordered:01-Dec-2015 James Romero MD Start 01-Dec-2015 Active BACTRIM DS, 800-160MG (Oral Tablet) 1 [...] Comments:started on 10/17/13 [address] dismissed from [facility] for kidney stone by gale CITALOPRAM [...] kidney stone from being discharged from [facility] PROMETHAZINE-DM, 6.25-15MG/5ML (Oral Syrup) 1-2 tsp Syrup [...] BL DRAW < 3 YRS Ordered:28-Oct-2015 FEM/JUGULAR ([id number]) Follow up in 6 months Ordered:27-Oct-2015 How to access health information Completed:27-Jul-2015 online Skin Conditions Completed:27-Jul-2015 Follow up in 2 weeks Ordered:27-Jul-2015 HIGH DOSE QUADRIVALENT INFLUENZA Ordered:25-Jul-2015 VACCINE ([id number]) ADMINISTRATION OF INFLUENZA VIRUS Ordered:25-Jul-2015 VACCINE ([id number]) Follow up in 3 months Ordered:25-Jul-2015 Follow up in 4 months Ordered: X-RAY EXAM OF KNEE, 1 OR 2 VIEWS Completed: Comments: right ([id number]) X-RAY EXAM OF BOTH KNEES, Completed: STANDING ([id number]) How to access health information Completed: online Follow up - Keep appt as scheduled Ordered:28-Oct-2014 CAROTID BILATERAL US ([id number]) Completed:14-Sep-2014 Comments: Verbal order from Dr. James Romero Follow up in 6 months Ordered:12-Aug-2014 PREVNAR 13 VALENT PNEUMOCOCCAL Completed:12-Aug-2014 VACCINE ([id number]) ADMINISTRATION OF PNEUMOCOCCAL Ordered:12-Aug-2014 CONJUGATE VACCINE (G0009) How to access health information Completed:12-Aug-2014 online Follow up in 6 months Ordered: Follow up in 2 months Ordered:26-Oct-2013 ADMIN INFLUENZA VIRUS VAC: FLU VACC Completed:26-Oct-2013 PRSV FREE INC ANTIG ([id number]) ADMINISTRATION OF INFLUENZA VIRUS Ordered:26-Oct-2013 VACCINE (G0008) Follow up in 6 months Ordered:30-Apr-2013 Follow up - Keep appt as scheduled Ordered:02-Jan-2013 Follow up in 6 months Ordered:30-Oct-2012 Follow up in 3 months Ordered:01-Aug-2012 Follow up in 3 months Ordered:01-May-2012 Follow up in 6 weeks Ordered: ADMINISTRATION OF INFLUENZA VIRUS Ordered:14-May-2011 VACCINE (G0008) FLU VACC PRSV FREE INC ANTIG Completed:14-May-2011 (69607) Follow up in 2 months Ordered:14-May-2011 Follow [...] Site: Deltoid (Left); high dose Lot #: [id number] Influenza, preserv. free, enhanced immunogncty, IM Administered on:2013 Comments: Site: Deltoid (Left) Lot #: [id number] Pneumococcal conjugate vaccine, 13 valent, IM Administered on:12-Aug-2014 Comments: Site: Deltoid (Left) Lot #: [id number] Social History Name Dates Details Tobacco use: [...] Comments: The left neck Final 10:36 SINGLE (08357) lesion was removed and also the left [...] not sent to pathology. 10:35 PUNCH BIOPSY (70340) Comments: After Final FIRST BIOPSY cleansing the [...] patient have a artifical heart valve? No ([facility]) (88496) 9. Saturday Dosage Repeat mg (Normal) 8. [...] Charge[i], Protime & INR, PSA 16:21 ANTIGEN) ([id number]) PSA 6.00 ng/mL (Abnormal) Range: 0.00-4.00 16:21 PT (PROTHROMBIN TIME) Comments: Does patient have a artifical heart valve? No ([facility]) (11021) 8. Joao Dosage 5.0 mg (Normal) 9. Saturday Dosage 7.5 mg (Normal) 6. Saturday Dosage 7.5 mg (Normal) 7. Dosage 7.5 mg (Normal) 5. Saturday Dosage 5.0 mg (Normal) 4. Saturday Dosage 7.5 mg (Normal) 3. Saturday Dosage 7.5 mg (Normal) INR 2.21 (Normal) PT 24.2 s (Abnormal) Range: 9.3-11.7 16:21 Routine Venipuncture (77353) Draw Drawn (Normal) 25-Oct-2015 URIC ACID BLOOD (66684) Comments: Items in this order include : CBC, Comprehensive Metabolic Panel, CKI, Hemoglobin A1C, Uric Acid, Draw Charge[i] 11:21 Uric Acid 5.5 mg/dL (Normal) Range: 3.5-7.2 11:21 HEMOGLOBIN GLYCLATED (HGB A1C) (60808) A1C 6.2 % (Normal) Range: 4.6-6.2 Comments: High risk of diabetes. 11:21 CK (30599) Comments: Items in this order include: CBC, Comprehensive Metabolic Panel, CKI, Hemoglobin A1C, Uric Acid, Draw Charge[i] CKI 288 U/L (Normal) Range: 39-308 11:21 CMP (13625) Comments: Items in this order include: CBC, [...] 135-145 11:21 CBC MALE- ORDER THIS ONE! (41777) manual diff Not Indicated (Normal) mpv 9.80 [...] have a artifical heart valve? No 15:06 ([facility]) (55612) 9. Saturday Dosage 7.5 mg (Normal) 8. [...] order include: Draw Charge[i], Protime & INR (13399) Draw Drawn (Normal) [facility] (99047) Comments: Items in this order include: Basic [...] include: A COPY TO [kyung], PSA ANTIGEN) (08645) PSA 6.55 ng/mL (Abnormal) Range: 0.00-4.00 09:[address] Boswell Comments: A copy of this report will be faxed to: Bettie Boswell in this order include: A COPY TO [kyung], PSA Ordering Doctor . (Normal) 09:15 PT (PROTHROMBIN TIME) Comments: Items in this order include: Draw Charge[i], Protime & INRDoes patient have a artifical heart valve? No ([facility]) (90106) 8. Saturday Dosage 7.5 mg (Normal) 9. [...] order include: Draw Charge[i], Protime & INR (61442) Draw Drawn (Normal) 14-Jan-2015 PT (PROTHROMBIN TIME) Comments: Items in this order include: Draw Charge[i], Protime & INRDoes patient have a artifical heart valve? No 09:28 ([facility]) (10186) 9. Saturday Dosage 5.0 mg (Normal) 7. [...] order include: Draw Charge[i], Protime & INR (96027) Draw Drawn (Normal) 28-Oct-2014 PT (PROTHROMBIN TIME) Comments: Items in this order include: Draw Charge[i], Protime & INRDoes patient have a artifical heart valve? No 10:48 ([facility]) (63928) 9. Saturday Dosage 7.5 mg (Normal) 8. [...] order include: Draw Charge[i], Protime & INR (69344) Draw Drawn (Normal) 29-Nov-2014 PT (PROTHROMBIN TIME) Comments: Items in this order include: Draw Charge[i], Protime & INRDoes patient have a artifical heart valve? No 10:28 ([facility]) (35979) 9. Saturday Dosage 5.0 mg (Normal) 8. [...] order include: Draw Charge[i], Protime & INR (26776) Draw Drawn (Normal) 21-Sep-2014 PT (PROTHROMBIN TIME) Comments: Items in this order include: Draw Charge[i], Protime & INRDoes patient have a artifical heart valve? No 10:08 ([facility]) (18862) 9. Saturday Dosage 5.0 mg (Normal) 7. [...] order include: Draw Charge[i], Protime & INR (71589) Draw Drawn (Normal) 24-Aug-2014 Routine Venipuncture Comments: Items in this order include: Protime & INR, Draw Charge[i] 09:59 (11670) Draw Drawn (Normal) 09:59 PT (PROTHROMBIN TIME) Comments: Items in this order include: Protime & INR, Draw Charge[i]INR value > 3.0 given to Estella by Beny Buckley patient have a artifical heart valve? No ([facility]) (32474) 9. Saturday Dosage 7.5 mg (Normal) 7. [...] Panel, Hemoglobin A1C, Urine Microalbumin, CBC ONE! (52073) manual diff Not Indicated (Normal) mpv 9.60 [...] Metabolic Panel, Hemoglobin A1C, Urine Microalbumin, CBC (36869) U A:C RATIO <30 mg/g Normal Range: <30 mg/g Normal (Normal) U CREAT 200 mg/dL (Normal) Range: 10-300 U ALB 80 mg/L (Abnormal) Range: 10 mg/L 09:59 HEMOGLOBIN GLYCLATED Comments: Items in this order include: Digoxin , PSA, Basic Metabolic Panel, Hemoglobin A1C, Urine Microalbumin, CBC (HGB A1C) (85416) A1C 5.9 % (Normal) Range: 4.6-6.2 Comments: Increased risk of diabetes. 09:59 [facility] (56399) Comments: Items in this order include: Digoxin, [...] Panel, Hemoglobin A1C, Urine Microalbumin, CBC ANTIGEN) (39008) PSA 7.11 ng/mL (Abnormal) Range: 0.00-4.00 09:59 DIGOXIN (93394) Comments: Items in this order include: Digoxin, PSA , Basic Metabolic Panel, Hemoglobin A1C, Urine Microalbumin, CBCTime of Last Dose? 08/23/2014 8:00 AMDosage? 0.25 DIG 0.36 ng/mL (Abnormal) Range: 0.90-2.00 05-Aug-2014 PT (PROTHROMBIN TIME) Comments: Items in this order include: Draw Charge[i], Protime & INRDoes patient have a artifical heart valve? No 10:48 ([facility]) (92451) 8. Saturday Dosage 7.5 mg (Normal) 9. [...] order include: Draw Charge[i], Protime & INR (54951) Draw Drawn (Normal) 03-Jun-2014 PT (PROTHROMBIN TIME) Comments: Items in this order include: Draw Charge[i], Protime & INRDoes patient have a artifical heart valve? No 13:56 ([facility]) (95589) 9. Saturday Dosage 7.5 mg (Normal) 8. [...] order include: Draw Charge[i], Protime & INR (82495) Draw Drawn (Normal) PT (PROTHROMBIN TIME) Comments: Items in this order include: Protime & INRDoes patient have a artifical heart valve? No 14:25 ([facility]) (69392) 9. Saturday Dosage 5.0 mg (Normal) 8. [...] this order include: Draw Charge[i], PSA ANTIGEN) (72449) PSA 6.15 ng/mL (Abnormal) Range: 0.00-4.00 14:25 Routine Venipuncture Comments: A copy of this report will be faxed to: eBttie Boswell in this order include: Draw Charge[i], PSA (83787) Draw Drawn (Normal) HEMOGLOBIN GLYCLATED Comments: Items in this order include: Hemoglobin A1C, Draw Charge[i], Comprehensive Metabolic Panel, Uric Acid 15:06 (HGB A1C) (07894) A1C 5.7 % (Normal) Range: 4.6-6.2 15:06 CMP (76765) Comments: Items in this order include: Hemoglobin [...] (Normal) Range: 135-145 15:06 URIC ACID BLOOD (96781) Comments: Items in this order include: Hemoglobin A1C, Draw Charge[i], Comprehensive Metabolic Panel, Uric Acid Uric Acid 8.0 mg/dL (Abnormal) Range: 3.6-7.7 15:06 Routine Venipuncture Comments: Items in this order include: Hemoglobin A1C, Draw Charge[i], Comprehensive Metabolic Panel, Uric Acid (06772) Draw Drawn (Normal) -January-2014 PT (PROTHROMBIN TIME) Comments: Items in this order include: Draw Charge[i], Protime & INRDoes patient have a artifical heart valve? No 14:27 ([facility]) (74570) 8. Saturday Dosage 5.0 mg (Normal) 9. [...] order include: Draw Charge[i], Protime & INR (03233) Draw Drawn (Normal) 26-Oct-2013 Draw Charge[i] Comments: Items in this order include: Basic Metabolic Panel, Draw Charge[i] 17:08 Draw Drawn (Normal) 17:05 [facility] (24934) Comments: Items in this order include: Basic [...] patient have a artifical heart valve? No ([facility]) (67904) 9. Saturday Dosage 5.0 mg (Normal) 7. [...] order include: Draw Charge[i], Protime & INR (32191) Draw Drawn (Normal) 15-Sep-2013 PSA (PROSTATE SPECIFIC Comments: A copy of this report will be faxed to: Bettie Boswell in this order include: A COPY TO [i], PSAPSA allowed more than once a year due to being a Diagonistic PSA not a screening PSA 11:05 ANTIGEN) (55033) PSA 5.40 ng/mL (Abnormal) Range: 0.00-4.00 11:[address] Boswell Comments: A copy of this report will be faxed to: Bettie Boswell in this order include: A COPY TO [kyung], PSAPSA allowed more than once a year [...] this order include: Comprehensive Metabolic Panel, Hemoglobin [id number] Hgb A1C was ran 99 Days ago. Check by MARGARITA 10:38 (HGB A1C) (56191) A1C 5.9 % (Normal) Range: 4.6-6.2 Comments: Increased risk of diabetes. 10:38 CMP (89658) Comments: Items in this order include: Comprehensive Metabolic Panel, Hemoglobin [id number] Hgb A1C was ran 99 Days ago. [...] patient have a artifical heart valve? No ([facility]) (43053) 9. Saturday Dosage 5.0 (cycle of 5,5,7.5 [...] order include: Draw Charge[i], Protime & INR (53047) Draw Drawn (Normal) 10:38 DIGOXIN (86553) Comments: Items in this order include: DigoxinTime of Last Dose? 08/06/2013 8:30 AMDosage? 0.25 mg daily DIG 0.48 ng/mL (Abnormal) Range: 0.90-2.00 29-Aug-2013 HEMOGLOBIN GLYCLATED Comments: Items in this order include: Comprehensive Metabolic Panel, CBC, Hemoglobin D2VYlxa Hgb A1C was ran 225 Days ago. Check by ms 11:58 (HGB A1C) (08814) A1C 6.1 % (Normal) Range: 4.6-6.2 11:58 CBC MALE- ORDER THIS Comments: Items in this order include: Comprehensive Metabolic Panel, CBC, Hemoglobin T5SEurk Hgb A1C was ran 225 Days ago. Check by ms ONE! (10312) manual diff Not Indicated (Normal) mpv 4.88 [...] 6.15 10*3/uL (Normal) Range: 4.50-10.50 11:58 CMP (92920) Comments: Items in this order include: Comprehensive Metabolic Panel, CBC, Hemoglobin [id number] Hgb A1C was ran 225 Days ago. [...] patient have a artifical heart valve? No ([facility]) (59619) 4. Saturday Dosage Repeat mg (Normal) 3. Saturday Dosage 7.5 mg (Normal) 2. Saturday Dosage 5.0 mg (Normal) 1. Saturday Dosage 5.0 mg (Normal) INR 2.60 (Normal) PT 26.8 s (Abnormal) Range: 10.4-12.4 PT (PROTHROMBIN TIME) Comments: Items in this order include: Draw Charge[i], Protime & INRDoes patient have a artifical heart valve? No 15:12 ([facility]) (99854) 5. Dosage Repeat mg (Normal) 4. Saturday Dosage 5.0 mg (Normal) 3. Saturday Dosage 5.0 mg (Normal) 2. Saturday Dosage 7.5 mg (Normal) INR 2.31 (Normal) PT 24.0 s (Abnormal) Range: 10.4-12.4 15:12 Routine Venipuncture Comments: Items in this order include: Draw Charge[i], Protime & INR (32711) Draw Drawn (Normal) PSA (PROSTATE SPECIFIC Comments: A copy of this report will be faxed to: Bettie Boswell in this order include: PSA, Draw Charge[i]PSA allowed more than once a year due to being a Diagonistic PSA not a screening PSA 10:00 ANTIGEN) (84161) PSA 5.60 ng/mL (Abnormal) Range: 0.00-4.00 10:00 [...] patient have a artifical heart valve? No ([facility]) (92168) 3. Saturday Dosage Repeat mg (Normal) 2. Saturday Dosage 7.5 mg (Normal) 1. Saturday Dosage 5.0 mg (Normal) INR 2.64 (Normal) PT 27.2 s (Abnormal) Range: 10.4-12.4 10:09 Routine Venipuncture Comments: Items in this order include: Draw Charge[i], Protime & INR (77230) Draw Drawn (Normal) 16-Dec-2012 PT (PROTHROMBIN TIME) Comments: Items in this order include: Draw Charge[i], Protime & INRDoes patient have a artifical heart valve? No 10:46 ([facility]) (04577) 4. Saturday Dosage Repeat mg (Normal) 3. Saturday Dosage 5.0 mg (Normal) 2. Saturday Dosage 7.5 mg (Normal) INR 2.13 (Normal) PT 22.2 s (Abnormal) Range: 10.4-12.4 10:46 Routine Venipuncture Comments: Items in this order include: Draw Charge[i], Protime & INR (41506) Draw Drawn (Normal) 26-Nov-2012 Routine Venipuncture Comments: Items in this order include: Protime & INR, Draw Charge[i] 15:05 (07294) Draw Drawn (Normal) 15:05 PT (PROTHROMBIN TIME) Comments: Items in this order include: Protime & INR, Draw Charge[i]Does patient have a artifical heart valve? No ([facility]) (77140) 4. Saturday Dosage 5.0 Repeat mg (Normal) 3. Saturday Dosage 5.0 mg (Normal) 2. Saturday Dosage 7.5 mg (Normal) INR 1.34 (Normal) PT 14.4 s (Abnormal) Range: 10.4-12.4 30-Oct-2012 PT (PROTHROMBIN TIME) Comments: Items in this order include: Draw Charge[i], Protime & INRINR value > 3.0 given to BW by Froy Chávez patient have a artifical heart valve? No 10:38 ([facility]) (50277) 7. Saturday Dosage 7.5 mg (Normal) 6. [...] order include: Draw Charge[i], Protime & INR (87993) Draw Drawn (Normal) 11:33 BMP Comments: Items [...] Dose? 10/29/2012 8:00 PMDosage? 0.25 mg Daily (99568) DIG 1.64 ng/mL (Normal) Range: 0.90-2.00 14-Oct-2012 PSA (PROSTATE SPECIFIC Comments: A copy of this report will be faxed to: Bettie Boswell in this order include: Draw Charge[i], Protime & INR, PSAPSA allowed more than once a year due to being a Diagonistic PSA not a screening PSA 10:25 ANTIGEN) (37542) PSA 8.11 ng/mL (Abnormal) Range: 0.00-4.00 10:25 PT (PROTHROMBIN TIME) Comments: PSA allowed more than once a year due to being a Diagonistic PSA not a screening PSACoumadin dosage=5,5,5,5,7.5 repeatDoes patient have a artifical heart valve? No ([facility]) (03318) 7. Saturday Dosage 7.5 mg (Normal) 6. [...] a Diagonistic PSA not a screening PSA (31361) Draw Drawn (Normal) 12-Sep-2012 PT (PROTHROMBIN TIME) Comments: Items in this order include: Draw Charge[i], Protime & INRDoes patient have a artifical heart valve? No 09:16 ([facility]) (45809) 6. Saturday Dosage Repeat mg (Normal) 5. Dosage 7.5 mg (Normal) 4. Saturday Dosage 5.0 mg (Normal) 3. Saturday Dosage 5.0 mg (Normal) 2. Saturday Dosage 5.0 mg (Normal) 1. Saturday Dosage 5.0 mg (Normal) INR 2.48 (Normal) PT 25.7 s (Abnormal) Range: 10.4-12.4 09:16 Routine Venipuncture Comments: Items in this order include: Draw Charge[i], Protime & INR (99187) Draw Drawn (Normal) 18-Aug-2012 PT (PROTHROMBIN TIME) Comments: Items in this order include: Protime & INRDoes patient have a artifical heart valve? No 11:44 ([facility]) (72118) 7. Saturday Dosage 5.0 mg (Normal) 6. [...] Days ago. Check by KB (HGB A1C) (04754) A1C 6.2 % (Normal) Range: 4.6-6.2 Comments: High risk of diabetes. 31-Jul-2012 PT (PROTHROMBIN TIME) Comments: Items in this order include: Draw Charge[i], Protime & INRINR value > 3.0 given to Estella by Duyen Buckleylynn patient have a artifical heart valve? No 13:32 ([facility]) (08315) 7. Saturday Dosage 5.0 mg (Normal) 6. [...] order include: Draw Charge[i], Protime & INR (12326) Draw Drawn (Normal) 23-Jun-2012 PSA (PROSTATE SPECIFIC Comments: A copy of this report will be faxed to: Bettie Boswell in this order include: Draw Charge[i], Protime & INR, PSAPSA allowed more than once a year due to being a Diagonistic PSA not a screening PSA 15:50 ANTIGEN) (25273) PSA 8.05 ng/mL (Abnormal) Range: 0.00-4.00 15:50 PT (PROTHROMBIN TIME) Comments: A copy of this report will be faxed to: Bettie Boswell in this order include: Draw Charge[i], Protime & INR , PSAPSA allowed more than once a year due to being a Diagonistic PSA not a screening ([facility]) (26992) PSADoes patient have a artifical heart valve? [...] a Diagonistic PSA not a screening PSA (26870) Draw Drawn (Normal) 13-May-2012 Draw Charge[i] Comments: [...] results to dr. hema boswell 14:28 ANTIGEN) (06235) PSA 16.45 ng/mL (Abnormal) Range: 0.00-4.00 14:28 PT (PROTHROMBIN TIME) Comments: Coumadin Dosage=5,5,5,7.5 Repeat. Took 7.5 on 04-27-12. ([facility]) (95479) 5. Dosage 7.5 Repeat mg (Normal) 4. Saturday Dosage 5.0 mg (Normal) 3. Saturday Dosage 5.0 mg (Normal) 2. Saturday Dosage 5.0 mg (Normal) 1. Saturday Dosage 7.5 mg (Normal) INR 2.17 (Normal) PT 22.7 s (Abnormal) Range: 10.4-12.4 14:28 Routine Venipuncture (29308) Draw Drawn (Normal) 13-May-2012 PSA (PROSTATE SPECIFIC Comments: A copy of this report will be faxed to: Bettie Boswell in this order include: PSA, Draw Charge[i]PSA allowed more than once a year due to being a Diagonistic PSA not a screening PSA 09:20 ANTIGEN) (01829) PSA 11.30 ng/mL (Abnormal) Range: 0.00-4.00 14-Uiwu-8702 TSH (THYROID Comments: Items in this order include: TSH 16:40 STIMULATING HORMONE) (00007) TSH 1.36 uIU/ml (Normal) Range: 0.34-5.60 14:50 PT (PROTHROMBIN TIME) Comments: Items in this order include: Draw Charge[i], Basic Metabolic Panel, Hemoglobin A1C, Protime & INRLast Hbg A1C was ran 218 Days ago. Check by DL ([facility]) (90723) 5. Dosage Repeat mg (Normal) 4. Saturday [...] ran 218 Days ago. Check (HGB A1C) (45544) by DLplease draw enough blood so if [...] ran 218 Days ago. Check by DL (31747) Draw Drawn (Normal) DIGOXIN, DRUG ASSAY Comments: Items in this order include: CBC, Comprehensive Metabolic Panel, CKI, Digoxin, Draw Charge[i] 09:08 (77213) DIG 0.38 ng/mL (Abnormal) Range: 0.90-2.00 09:08 CK Comments: Items in this order include: CBC, Comprehensive Metabolic Panel, CKI, Digoxin, Draw Charge[i] CKI 143 U/L (Normal) Range: 39-308 09:08 CMP (56235) Comments: Items in this order include: CBC, [...] Metabolic Panel, CKI, Digoxin, Draw Charge[i] ONE! (26129) manual diff Not Indicated (Normal) mpv 6.84 [...] order include: Protime & INR, Draw Charge[i] (62747) Draw Drawn (Normal) 16:45 PT (PROTHROMBIN TIME) Comments: Items in this order include: Protime & INR, Draw Charge[i]Coumadin doasage=5,5,7.5 Repeat ([facility]) (05799) 7. Saturday Dosage 5.0 mg (Normal) 6. [...] order include: Draw Charge[i], PSA 11:11 ANTIGEN) (14521) PSA 6.92 ng/mL (Abnormal) Range: 0.00-4.00 11:11 Routine Venipuncture Comments: A copy of this report will be faxed to: Bettie Boswell in this order include: Draw Charge[i], PSA (80466) Draw Drawn (Normal) 17-Oct-2011 Routine Venipuncture 10:18 (86808) Draw Drawn (Normal) 10:18 TESTOSTERONE, FREE, Comments: Items in this order include: Protime & INR, Draw Charge[i], TESTOSTERONE, FREE, BIOAVAILABLE, AND TOTAL, LC/MS/ MSTesting performed at: [place], [address] [address], [place], [address], Ancillary Services Manager Therapy: Michael Chávez [facility] TOTAL, LC/MS/MS ALBUMIN,SERUM 4.4 [...] and benefits counseling. 10:18 PT (PROTHROMBIN TIME) ([facility]) (40738) 7. Saturday Dosage 5.0 mg (Normal) 6. [...] Panel, Hemoglobin A1C, Draw Charge[i] (HGB A1C) (50582) A1C 6.1 % (Normal) Range: 4.6-6.2 13:29 [...] (Normal) Range: 135-145 13:29 DIGOXIN, DRUG ASSAY (97198) DIG 0.85 ng/mL (Abnormal) Range: 0.90-2.00 07-Aug-2011 TESTOSTERONE, FREE, Comments: Items in this order include: TESTOSTERONE, FREE, BIOAVAILABLE, AND TOTAL, LC/MS/MSTesting performed at: [place], [address] [address], [place] , [address], [place]o 12:53 WEAKLY BOUND AND TOTAL ratory Director: Michael Chávez MD.[facility] (33993) ALBUMIN,SERUM 4.4 g/dL (Normal) Range: 3.6-5.1 SEX [...] INR, Draw Charge[i]no change in coumadin dose ([facility]) (14936) 7. Saturday Dosage 7.5 mg (Normal) 6. [...] Metabolic Panel, Protime & INR, Draw Charge[i] ([facility]) (98436) 7. Saturday Dosage 5.0 mg (Normal) 5. [...] Boswell in this order include: PSA ANTIGEN) (60032) PSA 5.95 ng/mL (Abnormal) Range: 0.00-4.00 CBC-MALE- ORDER THIS Comments: Items in this order include : Hemoglobin A1C, Comprehensive Metabolic Panel, CBC 11:56 ONE! (12155) manual diff Not Indicated (Normal) mpv 7.65 [...] 6.24 10*3/uL (Normal) Range: 4.50-10.50 11:56 CMP (39657) Comments: Items in this order include: Hemoglobin [...] this order include: Digoxin, Draw Charge[i] 15:17 (41974) DIG 1.18 ng/mL (Normal) Range: 0.90-2.00 HEMOGLOBIN GLYCLATED Comments: Items in this order include: Hemoglobin A1C, Comprehensive Metabolic Panel, CBC 11:56 (HGB A1C) (97814) A1C 6.6 % (Abnormal) Range: 4.6-6.2 Comments: Consistent with diabetes. 13:48 PT (PROTHROMBIN TIME) Comments: change to coumadin 5mg x 2 day then 7.5mg x1 repeat the cycle; Items in this order include: Protime & INR, Draw Charge[i]cyclechange to coumadin 5mg x 2 day then 7.5mg x1 repeat the ([facility]) (88282) 6. Saturday Dosage 7.5 mg (Normal) 7. [...] & INR, PSA, Draw Charge[i] 09:43 ANTIGEN) (39922) PSA 5.84 ng/mL (Abnormal) Range: 0.00-4.00 09:43 PT (PROTHROMBIN TIME) Comments: no change in coumadin; no change in coumadin ([facility]) (17899) 7. Saturday Dosage 7.5 mg (Normal) 6. Saturday Dosage 5.0 mg (Normal) 5. Dosage 7.5 mg (Normal) 4. Saturday Dosage 5.0 mg (Normal) 3. Saturday Dosage 5.0 mg (Normal) 1. Willie Dosage 5.0 mg (Normal) 2. Saturday Dosage 7.5 mg (Normal) INR 3.45 (Normal) PT 32.9 s (Abnormal) Range: 10.4-12.4 23-Nov-2010 PT (PROTHROMBIN TIME) 10:03 ([facility] [place]) ([id number]) 6. Saturday Dosage 7.5 mg (Normal) 7. Saturday Dosage 5 mg (Normal) 1. Saturday Dosage 5 mg (Normal) 2. Saturday Dosage 7.5 mg (Normal) 3. Saturday Dosage 5 mg (Normal) 4. Saturday Dosage 7.5 mg (Normal) 5. Dosage 5 mg (Normal) INR 2.16 (Normal) PT 21.0 s (Abnormal) Range: 10.4-12.4 19-Oct-2010 PT (PROTHROMBIN TIME) 15:16 ([facility]) (25863) 6. Saturday Dosage 5 mg (Normal) 7. Saturday Dosage 7.5 mg (Normal) 3. Saturday Dosage 7.5 mg (Normal) 4. Saturday Dosage 5 mg (Normal) 5. Dosage 7.5 mg (Normal) 1. Saturday Dosage 7.5 mg (Normal) 2. Saturday Dosage 5 mg (Normal) INR 2.13 (Normal) PT 20.7 s (Abnormal) Range: 10.4-12.4 12-Sep-2010 PT (PROTHROMBIN TIME) 11:03 ([facility]) ([id number]) INR 2.57 (Normal) PT (PROTHROMBIN TIME) 24.8 s (Abnormal) Range: 11.5-13.5 22-Aug-2010 PT (PROTHROMBIN TIME) 13:41 ([facility]) ([id number]) 09-Aug-2010 PSA, MEDICARE (G0103) Comments: please fax to dr hema boswell 09:54 PSA (Medicare) 4.83 ng/mL (Abnormal) Range: 0 - 4 09:34 PT (PROTHROMBIN TIME) ([facility]) (17802) INR 2.68 (Normal) PT (PROTHROMBIN TIME) 25.8 s (Abnormal) Range: 11.5-13.5 27-Jun-2010 PT (PROTHROMBIN TIME) 08:38 ([facility]) (85446) 26-Jun-2010 PT (PROTHROMBIN TIME) 16:21 ([facility]) (17294) INR 1.89 (Normal) PT (PROTHROMBIN TIME) 18.4 s (Abnormal) Range: 11.5-13.5 Treatment Plan LIPID PANEL (27990); Ordered: 10/28/2015; Note: Verbal order from Dr. [...] problems with his a-fib at todays visit. 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 He said he is having quite a bit of pain with the nodule and some occasional drainage. Seems to be recurrent for him. 09:10 to 09:52 [facility] Office Visit - PG (pyogenic granuloma) [...] nail problems": He continues with his usual medications.[facility] Lab entry only - Encounter for long-term (current) use of anticoagulants ( V58.61 | Z79.01) On 07-Jul-2015 [facility] 16:55 to 16:56 Office Visit - [...] the stairs and I have to crawl. [facility] Historical Summary On [facility] 12:33 to 12:36 Lab entry only - Encounter for long-term (current) use of anticoagulants ( V58.61 | Z79.01) On [facility] 17:37 to 17:39 Lab entry only - Elevated PSA (790.93) On [facility] 10:10 to 10:11 Lab entry only - Encounter for long-term (current) use of anticoagulants ( V58.61 | Z79.01), Encounter for long-term (current) use of anticoagulants ( V58.61 | Z79.01) On 14-Jan-2015 [facility] 14:52 to 14:53 Lab entry only - Encounter for long-term (current) use of anticoagulants ( V58.61 | Z79.01), Encounter for long-term (current) use of anticoagulants ( V58.61 | Z79.01) On 29-Nov-2014 [facility] 12:31 to 15:09 Medication Entry - Diabetes mellitus (250.00 | E11.9) On 12-Nov-2014 [facility] 11:46 to 11:53 Medication Entry - Cellulitis, leg (682.6 | L03.119) On 11-Nov-2014 [facility] 09:48 to 10:00 Office Visit - [...] "Transition into care": He feels things are improved.[facility] Historical Summary On 27-Oct-2014 [facility] 15:03 to 15:08 Lab entry only - Fibrillation, atrial (427.31), Encounter for long-term ( current) use of anticoagulants (V58.61 | Z79.01) On 18-Oct-2014 [facility] 17:08 to 17:09 Medication Entry - Gout (274.9 | M10.9) On 12-Oct-2014 [facility] 16:17 to 16:22 Lab entry only - Encounter for long-term (current) use of anticoagulants ( V58.61 | Z79.01) On 21-Sep-2014 [facility] 15:31 to 15:33 Radiology Visit - Carotid stenosis (433.10 | I65.29) On 14-Sep-2014 [facility] 09:33 to 09:36 Lab entry only - Encounter for long-term (current) use of anticoagulants ( V58.61 | Z79.01) On 24-Aug-2014 [facility] 16:31 to 16:34 Office Visit - Health education (V65.40 | Z71.9), Prevnar (PCV13)FOR MEDICARE USE ONLY Pneumovax injection (V03.82) 22291, Encounter for long-term ( current) use of [...] lifeline screening. He mentions the "discoloration" of ankles.[facility] Historical Summary On 11-Aug-2014 [facility] 16:16 to 16:19 Lab entry only - Fibrillation, atrial (427.31), Encounter for long-term ( current) use of anticoagulants (V58.61 | Z79.01) On 06-Aug-2014 [facility] 16:41 to 16:43 Medication Entry - Benign essential hypertension (401.1 | I10) On 21-Jun-2014 [facility] 11:12 to 11:14 Lab entry only - Encounter for long-term (current) use of anticoagulants ( V58.61 | Z79.01) On 03-Jun-2014 [facility] 16:13 to 16:15 Lab entry only - Encounter for long-term (current) use of anticoagulants ( V58.61 | Z79.01) On [facility] 13:22 to 13:23 Lab entry only - Elevated PSA (790.93), Encounter for long-term (current) use of anticoagulants (V58.61 | Z79.01) On [facility] 14:27 to 14:28 Office Visit - [...] thing in the morning and on stairs. [facility] Historical Summary On 28-Dec-2013 [facility] 12:26 to 12:29 Medication Entry - Encounter for long-term (current) use of anticoagulants ( V58.61 | Z79.01), Diabetes mellitus (250.00 | E11.9), Fibrillation, atrial ( 427.31) On 03-Nov-2013 [facility] 09:01 to 11:53 Medication Entry - Fibrillation, atrial (427.31), Diabetes mellitus (250.00 | E11.9) On 30-Oct-2013 [facility] 15:55 to 16:00 Lab entry only - Encounter for long-term (current) use of anticoagulants ( V58.61 | Z79.01) On 27-Oct-2013 [facility] 17:57 to 17:59 Office Visit - [...] after being in the hospital at [facility] on 10/16/13 & discharged on 10/17/13 dx jasmeet bhagat stone, inr was done prior to visit.) . Note for "Transition into care": He passed a kidney stone a week ago.[facility] Historical Summary On 23-Oct-2013 [facility] 14:42 to 14:45 Lab entry only - Encounter for long-term (current) use of anticoagulants ( V58.61 | Z79.01) On 20-Oct-2013 [facility] 16:31 to 16:33 Lab entry only - Encounter for long-term (current) use of anticoagulants ( V58.61 | Z79.01) On 16-Sep-2013 [facility] 10:14 to 10:15 Lab entry only - Elevated PSA (790.93) On 15-Sep-2013 [facility] 11:11 to 11:12 Lab entry only - Encounter for long-term (current) use of anticoagulants ( V58.61 | Z79.01) On 07-Aug-2013 [facility] 14:32 to 14:33 Lab entry only - Benign essential hypertension (401.1 | I10), Diabetes mellitus (250.00 | E11.9) On 07-Aug-2013 [facility] 11:18 to 11:19 Lab entry only - Encounter for long-term (current) use of anticoagulants ( V58.61 | Z79.01) On 01-May-2013 [facility] 10:33 to 10:38 Office Visit - [...] He did miss some meds while he traveled.[facility] Historical Summary On 29-Apr-2013 [facility] 11:46 to 11:49 Lab entry only - Encounter for long-term (current) use of anticoagulants ( V58.61 | Z79.01) On [facility] 16:39 to 16:42 Lab entry only - Encounter for long-term (current) use of anticoagulants ( V58.61 | Z79.01) On [facility] 19:40 to 19:42 Lab entry only - Elevated PSA (790.93) On [facility] 12:03 to 12:07 Office Visit - [...] for "Cough": He has not had an antibiotic.[facility] Lab entry only - Encounter for long-term (current) use of anticoagulants ( V58.61 | Z79.01) On 16-Dec-2012 [facility] 18:21 to 18:23 Lab entry only - Encounter for long-term (current) use of anticoagulants ( V58.61 | Z79.01) On 27-Nov-2012 [facility] 16:52 to 16:53 Lab entry only - Encounter for long-term (current) use of anticoagulants ( V58.61) On 26-Nov-2012 [facility] 15:04 to 15:05 Office Visit - [...] first thing in the morning and on stairs.[facility] Historical Summary On 29-Oct-2012 [facility] 16:15 to 16:17 Lab entry only - Encounter for long-term (current) use of anticoagulants ( V58.61) On 15-Oct-2012 [facility] 09:51 to 09:57 Lab entry only - Encounter for long-term (current) use of anticoagulants ( V58.61), Elevated PSA (790.93) On 14-Oct-2012 [facility] 10:25 to 10:26 Lab entry only - Encounter for long-term (current) use of anticoagulants ( V58.61) On 12-Sep-2012 [facility] 13:44 to 13:45 Medication Entry - Edema (782.3), Fibrillation, atrial (427.31) On 20-Aug-2012 [facility] 11:10 to 11:12 Medication Entry - Fibrillation, atrial (427.31), Edema (782.3) On 19-Aug-2012 [facility] 17:29 to 18:11 Medication Entry - Encounter for long-term (current) use of anticoagulants ( V58.61), Fibrillation, atrial (427.31), Diabetes mellitus (250.00) On 2011 [facility] 17:44 to 17:53 Office Visit - 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), Inflamed seborrheic keratosis (702.11), Hyperglycemia (790.29), Encounter for long-term (current) use of anticoagulants (V58.61), Fibrillation, atrial (427.31) On 01-Aug-2012 Encounter Reason: Follow up for chronic condition - The patient feels well with minor complaints (here today for a 3 month follow up with Dr. Romero ) .[facility] 09:34 to 10:39 Medication Entry - Encounter for long-term (current) use of anticoagulants ( V58.61) On 31-Jul-2012 [facility] 18:21 to 18:22 Historical Summary On 31-Jul-2012 [facility] 11:40 to 11:42 Lab entry only - Encounter for long-term (current) use of anticoagulants ( V58.61) On 23-Jun-2012 [facility] 18:47 to 18:52 Lab entry only - Elevated PSA (790.93), Encounter for long-term (current) use of anticoagulants (V58.61) On 23-Jun-2012 [facility] 15:48 to 15:53 Office Visit - Adjustment disorder with depressed mood (309.0), Encounter for long-term (current) use of anticoagulants (V58.61), Elevated PSA (790.93) On Encounter Reason: Follow up for chronic condition - The patient feels well with minor complaints (here for a 6 week follow up visit do to a new medication but did not start the medication).[facility] 11:19 to 13: 39 Historical Summary On 30-Apr-2012 [facility] 11:50 to 11:52 Lab entry only - Encounter for long-term (current) use of anticoagulants ( V58.61) On 28-Apr-2012 [facility] 17:23 to 17:26 Lab entry only - Elevated PSA (790.93), Encounter for long-term (current) use of anticoagulants (V58.61) On 28-Apr-2012 [facility] 14:19 to 14:22 Office Visit - [...] , had lab done prior to appt today).[facility] Lab entry only - Edema (782.3), Hyperglycemia (790.29), Encounter for long- term (current) use of anticoagulants (V58.61) On [facility] 11:06 to 11:14 Lab entry only - Elevated PSA (790.93), Fibrillation, atrial (427.31), Edema ( 782.3) On [facility] 09:02 to 09:05 Lab entry only - Encounter for long-term (current) use of anticoagulants ( V58.61) On [facility] 16:44 to 16:45 Medication Entry On 26-Oct-2011 [facility] 13:30 to 13:32 Lab entry only - Elevated PSA (790.93) On 23-Oct-2011 [facility] 11:01 to 11:04 Lab entry only - Encounter for long-term (current) use of anticoagulants ( V58.61), Low testosterone (257.2) On 17-Oct-2011 [facility] 10:15 to 10:17 Medication Entry - Fibrillation, atrial (427.31) On 04-Oct-2011 [facility] 09:26 to 09:38 Medication Entry - Fibrillation, atrial (427.31), Edema (782.3), Encounter for long-term (current) use of anticoagulants (V58.61), Benign prostatic hypertrophy without lower urinary tract symptoms (LUTS) (600.00) On 02-Oct-2011 [facility] 18:56 to 19:02 Medication Entry - Encounter for long-term (current) use of anticoagulants ( V58.61), Fibrillation, atrial (427.31), Edema (782.3) On 26-Sep-2011 [facility] 11:06 to 11:11 Medication Entry - Fibrillation, atrial (427.31), Encounter for long-term ( current) use of anticoagulants (V58.61) On 24-Sep-2011 [facility] 10:41 to 10:49 Lab entry only - Low testosterone (257.2) On 10-Aug-2011 [facility] 13:03 to 13:05 Lab entry only - Hyperglycemia (790.29), Encounter for long-term (current) use of anticoagulants (V58.61), Fibrillation, atrial (427.31) On 08-Aug-2011 [facility] 13:27 to 13:29 Office Visit - [...] he 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." [facility] Historical Summary On 06-Aug-2011 [facility] 12:22 to 12:24 Medication Entry - Fibrillation, atrial (427.31) On 05-Jun-2011 [facility] 08:54 to 08:59 Lab entry only - Encounter for long-term (current) use of anticoagulants ( V58.61) On 15-May-2011 [facility] 18:48 to 18:50 Office Visit - [...] up is diabetes, hypertension, cardiovascular disorder and other.[facility] Medication Entry - Benign prostatic hypertrophy without lower urinary tract symptoms (LUTS) (600.00) On 19-Apr-2011 [facility] 08:49 to 08:51 Lab entry only - Benign prostatic hypertrophy without lower urinary tract symptoms (LUTS) (600.00) On 10-Apr-2011 [facility] 15:15 to 15:19 Office Visit - [...] seeing dr. boswell the middle of apr.). [facility] Historical Summary On [facility] 16:05 to 16:18 Lab entry only - Encounter for long-term (current) use of anticoagulants ( V58.61) On [facility] 17:34 to 17:36 Lab entry only - Encounter for long-term (current) use of anticoagulants ( V58.61), Elevated PSA (790.93) On [facility] 09:42 to 09:43 Lab entry only - Encounter for long-term (current) use of anticoagulants ( V58.61) On 24-Nov-2010 [facility] 08:55 to 08:57 Lab entry only - Encounter for long-term (current) use of anticoagulants ( V58.61) On 20-Oct-2010 [facility] 14:42 to 14:46 Historical Summary - Encounter for long-term (current) use of anticoagulants ( V58.61) On 13-Sep-2010 [facility] 10:53 to 10:59 Historical Summary 12-Sep-2010 to 13-Sep-2010 [facility] Lab entry only - Encounter for long-term (current) use of anticoagulants ( V58.61) On 14-Aug-2010 [facility] 17:44 to 17:49 Historical Summary - Elevated PSA (790.93) 09-Aug-2010 to 15-Aug-2010 [facility] Lab entry only - Encounter for long-term (current) use of anticoagulants ( V58.61) 27-Jun-2010 to 28-Jun-2010 [facility] Lab entry only - Encounter for long-term (current) use of anticoagulants ( V58.61) On 26-Jun-2010 [facility] 16:21 to 22:23 Insurance Vijay Yuan; gwen guarantorMedicare [employer] [facility] [employer]
--- OUTSIDE RECORDS SUMMARY | 2017-10-22 17:45 | External Medical Summary | Continuity of Care Document ---
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 James Romero ATORVASTATIN CALCIUM, 20MG (Oral Tablet) 1 (one) Tablet at bedtime for 30 days Quantity: 30 {Tablet} Refills: 10 Ordered:25-Jul-2015 James Romero MD Start 25-Jul-2015 Active COLCHICINE-PROBENECID, 0.5-500MG (Oral Tablet) 1 (one) Tablet Tablet as needed for 14 days Quantity: 30 {Tablet} Refills: 2 Ordered:12-Oct-2014 James Romero MD Start 12-Oct-2014 Active Comments:Medication taken as needed. Digoxin 250 MCG Oral Tablet 1 Tablet daily for 90 days Quantity: 90 {Tablet} Refills: 4 Ordered:10-Dec-2016 James Romero MD Start 10-Dec-2016 Active Digoxin 250 MCG Oral Tablet 1 Tablet daily for 90 days Quantity: 90 {Tablet} Refills: 1 Ordered:10-Dec-2016 James Romero MD Start 10-Dec-2016 Active DilTIAZem HCl ER 240 MG Oral Capsule Extended Release 24 Hour 1 Capsule ER 24HR daily for 90 days Quantity: 90 {Capsule} Refills: 4 Ordered:10-Dec-2016 James Romero MD Start 10-Dec-2016 Active DilTIAZem HCl ER 240 MG Oral Capsule Extended Release 24 Hour 1 Capsule ER 24HR daily for 90 days Quantity: 90 {Capsule} Refills: 1 Ordered:10-Dec-2016 James Romero MD Start 10-Dec-2016 Active ELIQUIS, 5MG (Oral Tablet) 1 (one) Tablet two times daily for 30 days Quantity: 60 {Tablet} Refills: 10 Ordered:27-Oct-2015 James Romero MD Start 27-Oct-2015 Active Comments:start after stopping Coumadin as instructed FLOMAX, 0.4MG (Oral Capsule) 1 Capsule daily at supper for 90 days Quantity: 90 {Capsule} Refills: 4 Ordered:02-Oct-2011 James Romero MD Start 02-Oct-2011 Active Lisinopril 10 MG Oral Tablet one tab Tablet daily for 90 days Quantity: 90 {Tablet} Refills: 4 Ordered:10-Dec-2016 James Romero MD Start 10-Dec-2016 Active Lisinopril 10 MG Oral Tablet one tab Tablet daily for 90 days Quantity: 90 {Tablet} Refills: 1 Ordered:10-Dec-2016 James Romero MD Start 10-Dec-2016 Active MetFORMIN HCl 500 MG Oral Tablet 1 Tablet daily for 90 days Quantity: 90 {Tablet} Refills: 4 Ordered:10-Dec-2016 James Romero MD Start 10-Dec-2016 Active MetFORMIN HCl 500 MG Oral Tablet 1 Tablet daily for 90 days Quantity: 90 {Tablet} Refills: 1 Ordered:10-Dec-2016 James Romero MD Start 10-Dec-2016 Active BACTRIM DS, 800-160MG (Oral Tablet) 1 [...] Comments:started on 10/17/13 after being dismissed from [facility] for kidney stone by gale CITALOPRAM [...] dx kidney stone from being discharged from [facility] PROMETHAZINE-DM, 6.25-15MG/5ML (Oral Syrup) 1-2 tsp [...] BL DRAW < 3 YRS Ordered:28-Oct-2015 FEM/JUGULAR ([id number]) Follow up in 6 months Ordered:27-Oct-2015 How to access health information Completed:27-Jul-2015 online Skin Conditions Completed:27-Jul-2015 Follow up in 2 weeks Ordered:27-Jul-2015 HIGH DOSE QUADRIVALENT INFLUENZA Ordered:25-Jul-2015 VACCINE (77155) ADMINISTRATION OF INFLUENZA VIRUS Ordered:25-Jul-2015 VACCINE (G0008) Follow up in 3 months Ordered:25-Jul-2015 Follow up in 4 months Ordered: X-RAY EXAM OF KNEE, 1 OR 2 VIEWS Completed: Comments: right (57326) X-RAY EXAM OF BOTH KNEES, Completed: STANDING (94108) How to access health information Completed: online Follow up - Keep appt as scheduled Ordered:28-Oct-2014 CAROTID BILATERAL US (04069) Completed:14-Sep-2014 Comments: Verbal order from Dr. James Romero Follow up in 6 months Ordered:12-Aug-2014 PREVNAR 13 VALENT PNEUMOCOCCAL Completed:12-Aug-2014 VACCINE (69984) ADMINISTRATION OF PNEUMOCOCCAL Ordered:12-Aug-2014 CONJUGATE VACCINE (G0009) How to access health information Completed:12-Aug-2014 online Follow up in 6 months Ordered: Follow up in 2 months Ordered:26-Oct-2013 ADMIN INFLUENZA VIRUS VAC: FLU VACC Completed:26-Oct-2013 PRSV FREE INC ANTIG (79161) ADMINISTRATION OF INFLUENZA VIRUS Ordered:26-Oct-2013 VACCINE (G0008) Follow up in 6 months Ordered:30-Apr-2013 Follow up - Keep appt as scheduled Ordered:02-Jan-2013 Follow up in 6 months Ordered:30-Oct-2012 Follow up in 3 months Ordered:01-Aug-2012 Follow up in 3 months Ordered:01-May-2012 Follow up in 6 weeks Ordered: ADMINISTRATION OF INFLUENZA VIRUS Ordered:14-May-2011 VACCINE (G0008) FLU VACC PRSV FREE INC ANTIG Completed:14-May-2011 (13100) Follow up in 2 months Ordered:14-May-2011 Follow up in 2 months Ordered: Annual Eye Exam Completed:22-Nov-2008 Colonoscopy, Screening Completed: Colonoscopy, Screening Completed:06-Oct-2014 Flu Vaccine Completed:26-Oct-2013 Flu Vaccine Completed:06-Jun-2012 Comments: [facility] Flu Vaccine Completed:14-May-2011 Comments: high [...] Site: Deltoid (Left); high dose Lot #: [id number] Influenza, preserv. free, enhanced immunogncty, IM Administered on:2013 Comments: Site: Deltoid (Left) Lot #: [id number] Pneumococcal conjugate vaccine, 13 valent, IM Administered on:12-Aug-2014 Comments: Site: Deltoid (Left) Lot #: [id number] Social History Name Dates Details Tobacco use: [...] Comments: The left neck Final 10:36 SINGLE (60459) lesion was removed and also the left [...] not sent to pathology. 10:35 PUNCH BIOPSY (43821) Comments: After Final FIRST BIOPSY cleansing the [...] patient have a artifical heart valve? No ([facility]) (13634) 9. Saturday Dosage Repeat mg (Normal) 8. [...] Charge[i], Protime & INR, PSA 16:21 ANTIGEN) (36679) PSA 6.00 ng/mL (Abnormal) Range: 0.00-4.00 16:21 PT (PROTHROMBIN TIME) Comments: Does patient have a artifical heart valve? No ([facility]) (59738) 8. Joao Dosage 5.0 mg (Normal) 9. Saturday Dosage 7.5 mg (Normal) 6. Saturday Dosage 7.5 mg (Normal) 7. Dosage 7.5 mg (Normal) 5. Saturday Dosage 5.0 mg (Normal) 4. Saturday Dosage 7.5 mg (Normal) 3. Saturday Dosage 7.5 mg (Normal) INR 2.21 (Normal) PT 24.2 s (Abnormal) Range: 9.3-11.7 16:21 Routine Venipuncture (69049) Draw Drawn (Normal) 25-Oct-2015 URIC ACID BLOOD (84551) Comments: Items in this order include : CBC, Comprehensive Metabolic Panel, CKI, Hemoglobin A1C, Uric Acid, Draw Charge[i] 11:21 Uric Acid 5.5 mg/dL (Normal) Range: 3.5-7.2 11:21 HEMOGLOBIN GLYCLATED (HGB A1C) (84136) A1C 6.2 % (Normal) Range: 4.6-6.2 Comments: High risk of diabetes. 11:21 CK (59858) Comments: Items in this order include: CBC, Comprehensive Metabolic Panel, CKI, Hemoglobin A1C, Uric Acid, Draw Charge[i] CKI 288 U/L (Normal) Range: 39-308 11:21 CMP (26038) Comments: Items in this order include: CBC, [...] 135-145 11:21 CBC MALE- ORDER THIS ONE! (55540) manual diff Not Indicated (Normal) mpv 9.80 [...] have a artifical heart valve? No 15:06 ([facility]) (47972) 9. Saturday Dosage 7.5 mg (Normal) 8. [...] order include: Draw Charge[i], Protime & INR (96476) Draw Drawn (Normal) [facility] (21109) Comments: Items in this order include: Basic [...] order include: A COPY TO [eliana, PSA ANTIGEN) (29998) PSA 6.55 ng/mL (Abnormal) Range: 0.00-4.00 09:[address] Boswell Comments: A copy of this report will be faxed to: Bettie Boswell in this order include: A COPY TO DR.[i] PSA Ordering Doctor . (Normal) 09:15 PT (PROTHROMBIN TIME) Comments: Items in this order include: Draw Charge[i], Protime & INRDoes patient have a artifical heart valve? No ([facility]) (66857) 8. Saturday Dosage 7.5 mg (Normal) 9. [...] order include: Draw Charge[i], Protime & INR (78266) Draw Drawn (Normal) 14-Jan-2015 PT (PROTHROMBIN TIME) Comments: Items in this order include: Draw Charge[i], Protime & INRDoes patient have a artifical heart valve? No 09:28 ([facility]) (71721) 9. Saturday Dosage 5.0 mg (Normal) 7. [...] order include: Draw Charge[i], Protime & INR (23365) Draw Drawn (Normal) 28-Oct-2014 PT (PROTHROMBIN TIME) Comments: Items in this order include: Draw Charge[i], Protime & INRDoes patient have a artifical heart valve? No 10:48 ([employer] [employer]) (11685) 9. Saturday Dosage 7.5 mg (Normal) 8. [...] order include: Draw Charge[i], Protime & INR (28246) Draw Drawn (Normal) 29-Nov-2014 PT (PROTHROMBIN TIME) Comments: Items in this order include: Draw Charge[i], Protime & INRDoes patient have a artifical heart valve? No 10:28 ([employer]) (40799) 9. Saturday Dosage 5.0 mg (Normal) 8. [...] order include: Draw Charge[i], Protime & INR (67496) Draw Drawn (Normal) 21-Sep-2014 PT (PROTHROMBIN TIME) Comments: Items in this order include: Draw Charge[i], Protime & INRDoes patient have a artifical heart valve? No 10:08 ([employer]) (61847) 9. Saturday Dosage 5.0 mg (Normal) 7. [...] order include: Draw Charge[i], Protime & INR (76186) Draw Drawn (Normal) 24-Aug-2014 Routine Venipuncture Comments: Items in this order include: Protime & INR, Draw Charge[i] 09:59 (71460) Draw Drawn (Normal) 09:59 PT (PROTHROMBIN TIME) Comments: Items in this order include: Protime & INR, Draw Charge[i]INR value > 3.0 given to Estella by Beny Buckley patient have a artifical heart valve? No ([facility]) (59508) 9. Saturday Dosage 7.5 mg (Normal) 7. [...] Panel, Hemoglobin A1C, Urine Microalbumin, CBC ONE! (80914) manual diff Not Indicated (Normal) mpv 9.60 [...] Metabolic Panel, Hemoglobin A1C, Urine Microalbumin, CBC (05346) U A:C RATIO <30 mg/g Normal Range: <30 mg/g Normal (Normal) U CREAT 200 mg/dL (Normal) Range: 10-300 U ALB 80 mg/L (Abnormal) Range: 10 mg/L 09:59 HEMOGLOBIN GLYCLATED Comments: Items in this order include: Digoxin , PSA, Basic Metabolic Panel, Hemoglobin A1C, Urine Microalbumin, CBC (HGB A1C) (10687) A1C 5.9 % (Normal) Range: 4.6-6.2 Comments: Increased risk of diabetes. 09:59 [facility] (90789) Comments: Items in this order include: Digoxin, [...] Panel, Hemoglobin A1C, Urine Microalbumin, CBC ANTIGEN) (76053) PSA 7.11 ng/mL (Abnormal) Range: 0.00-4.00 09:59 DIGOXIN (22396) Comments: Items in this order include: Digoxin, PSA , Basic Metabolic Panel, Hemoglobin A1C, Urine Microalbumin, CBCTime of Last Dose? 08/23/2014 8:00 AMDosage? 0.25 DIG 0.36 ng/mL (Abnormal) Range: 0.90-2.00 05-Aug-2014 PT (PROTHROMBIN TIME) Comments: Items in this order include: Draw Charge[i], Protime & INRDoes patient have a artifical heart valve? No 10:48 ([employer]) (21812) 8. Saturday Dosage 7.5 mg (Normal) 9. [...] order include: Draw Charge[i], Protime & INR (85682) Draw Drawn (Normal) 03-Jun-2014 PT (PROTHROMBIN TIME) Comments: Items in this order include: Draw Charge[i], Protime & INRDoes patient have a artifical heart valve? No 13:56 ([employer]) (32741) 9. Saturday Dosage 7.5 mg (Normal) 8. [...] order include: Draw Charge[i], Protime & INR (73006) Draw Drawn (Normal) PT (PROTHROMBIN TIME) Comments: Items in this order include: Protime & INRDoes patient have a artifical heart valve? No 14:25 ([facility]) (34995) 9. Saturday Dosage 5.0 mg (Normal) 8. [...] this order include: Draw Charge[i], PSA ANTIGEN) (83300) PSA 6.15 ng/mL (Abnormal) Range: 0.00-4.00 14:25 Routine Venipuncture Comments: A copy of this report will be faxed to: Bettie Boswell in this order include: Draw Charge[i], PSA (31457) Draw Drawn (Normal) HEMOGLOBIN GLYCLATED Comments: Items in this order include: Hemoglobin A1C, Draw Charge[i], Comprehensive Metabolic Panel, Uric Acid 15:06 (HGB A1C) (14300) A1C 5.7 % (Normal) Range: 4.6-6.2 15:06 CMP (19752) Comments: Items in this order include: Hemoglobin [...] (Normal) Range: 135-145 15:06 URIC ACID BLOOD (45544) Comments: Items in this order include: Hemoglobin A1C, Draw Charge[i], Comprehensive Metabolic Panel, Uric Acid Uric Acid 8.0 mg/dL (Abnormal) Range: 3.6-7.7 15:06 Routine Venipuncture Comments: Items in this order include: Hemoglobin A1C, Draw Charge[i], Comprehensive Metabolic Panel, Uric Acid (30102) Draw Drawn (Normal) -January-2014 PT (PROTHROMBIN TIME) Comments: Items in this order include: Draw Charge[i], Protime & INRDoes patient have a artifical heart valve? No 14:27 ([facility]) (00010) 8. Saturday Dosage 5.0 mg (Normal) 9. [...] order include: Draw Charge[i], Protime & INR (23513) Draw Drawn (Normal) 26-Oct-2013 Draw Charge[i] Comments: Items in this order include: Basic Metabolic Panel, Draw Charge[i] 17:08 Draw Drawn (Normal) 17:05 [facility] (33584) Comments: Items in this order include: Basic [...] patient have a artifical heart valve? No ([facility]) (63053) 9. Saturday Dosage 5.0 mg (Normal) 7. [...] order include: Draw Charge[i], Protime & INR (87673) Draw Drawn (Normal) 15-Sep-2013 PSA (PROSTATE SPECIFIC Comments: A copy of this report will be faxed to: Bettie Boswell in this order include: A COPY TO [kyung] PSAPSA allowed more than once a year due to being a Diagonistic PSA not a screening PSA 11:05 ANTIGEN) (16619) PSA 5.40 ng/mL (Abnormal) Range: 0.00-4.00 11:05 [...] this order include: Comprehensive Metabolic Panel, Hemoglobin B1BBjar Hgb A1C was ran 99 Days ago. Check by MARGARITA 10:38 (HGB A1C) (40896) A1C 5.9 % (Normal) Range: 4.6-6.2 Comments: Increased risk of diabetes. 10:38 [facility] (86144) Comments: Items in this order include: Comprehensive Metabolic Panel, Hemoglobin T0UJaie Hgb A1C was ran 99 Days ago. [...] patient have a artifical heart valve? No ([facility]) (99210) 9. Saturday Dosage 5.0 (cycle of 5,5,7.5 [...] order include: Draw Charge[i], Protime & INR (53432) Draw Drawn (Normal) 10:38 DIGOXIN (40519) Comments: Items in this order include: DigoxinTime of Last Dose? 08/06/2013 8:30 AMDosage? 0.25 mg daily DIG 0.48 ng/mL (Abnormal) Range: 0.90-2.00 30-Apr-2013 HEMOGLOBIN GLYCLATED Comments: Items in this order include: Comprehensive Metabolic Panel, CBC, Hemoglobin [id number] Hgb A1C was ran 225 Days ago. Check by ms 11:58 (HGB A1C) (98085) A1C 6.1 % (Normal) Range: 4.6-6.2 11:58 CBC MALE- ORDER THIS Comments: Items in this order include: Comprehensive Metabolic Panel, CBC, Hemoglobin G1UMali Hgb A1C was ran 225 Days ago. Check by ms ONE! (22519) manual diff Not Indicated (Normal) mpv 4.88 [...] 6.15 10*3/uL (Normal) Range: 4.50-10.50 11:58 CMP (82100) Comments: Items in this order include: Comprehensive Metabolic Panel, CBC, Hemoglobin [id number] Hgb A1C was ran 225 Days ago. [...] patient have a artifical heart valve? No ([facility]) (79775) 4. Saturday Dosage Repeat mg (Normal) 3. Saturday Dosage 7.5 mg (Normal) 2. Saturday Dosage 5.0 mg (Normal) 1. Saturday Dosage 5.0 mg (Normal) INR 2.60 (Normal) PT 26.8 s (Abnormal) Range: 10.4-12.4 PT (PROTHROMBIN TIME) Comments: Items in this order include: Draw Charge[i], Protime & INRDoes patient have a artifical heart valve? No 15:12 ([facility]) (05676) 5. Dosage Repeat mg (Normal) 4. Saturday Dosage 5.0 mg (Normal) 3. Saturday Dosage 5.0 mg (Normal) 2. Saturday Dosage 7.5 mg (Normal) INR 2.31 (Normal) PT 24.0 s (Abnormal) Range: 10.4-12.4 15:12 Routine Venipuncture Comments: Items in this order include: Draw Charge[i], Protime & INR (95588) Draw Drawn (Normal) PSA (PROSTATE SPECIFIC Comments: A copy of this report will be faxed to: Bettie Boswell in this order include: PSA, Draw Charge[i]PSA allowed more than once a year due to being a Diagonistic PSA not a screening PSA 10:00 ANTIGEN) (05570) PSA 5.60 ng/mL (Abnormal) Range: 0.00-4.00 10:00 [...] patient have a artifical heart valve? No ([facility]) (51840) 3. Saturday Dosage Repeat mg (Normal) 2. Saturday Dosage 7.5 mg (Normal) 1. Saturday Dosage 5.0 mg (Normal) INR 2.64 (Normal) PT 27.2 s (Abnormal) Range: 10.4-12.4 10:09 Routine Venipuncture Comments: Items in this order include: Draw Charge[i], Protime & INR (37102) Draw Drawn (Normal) 16-Apr-2013 PT (PROTHROMBIN TIME) Comments: Items in this order include: Draw Charge[i], Protime & INRDoes patient have a artifical heart valve? No 10:46 ([facility]) (14766) 4. Saturday Dosage Repeat mg (Normal) 3. Saturday Dosage 5.0 mg (Normal) 2. Saturday Dosage 7.5 mg (Normal) INR 2.13 (Normal) PT 22.2 s (Abnormal) Range: 10.4-12.4 10:46 Routine Venipuncture Comments: Items in this order include: Draw Charge[i], Protime & INR (93347) Draw Drawn (Normal) 26-Nov-2012 Routine Venipuncture Comments: Items in this order include: Protime & INR, Draw Charge[i] 15:05 (22837) Draw Drawn (Normal) 15:05 PT (PROTHROMBIN TIME) Comments: Items in this order include: Protime & INR, Draw Charge[i]Does patient have a artifical heart valve? No ([facility]) (62639) 4. Saturday Dosage 5.0 Repeat mg (Normal) 3. Saturday Dosage 5.0 mg (Normal) 2. Saturday Dosage 7.5 mg (Normal) INR 1.34 (Normal) PT 14.4 s (Abnormal) Range: 10.4-12.4 30-Oct-2012 PT (PROTHROMBIN TIME) Comments: Items in this order include: Draw Charge[i], Protime & INRINR value > 3.0 given to BW by Froy Chávez patient have a artifical heart valve? No 10:38 ([facility]) (50078) 7. Saturday Dosage 7.5 mg (Normal) 6. [...] order include: Draw Charge[i], Protime & INR (14979) Draw Drawn (Normal) 11:33 BMP Comments: Items [...] Dose? 10/29/2012 8:00 PMDosage? 0.25 mg Daily (25174) DIG 1.64 ng/mL (Normal) Range: 0.90-2.00 14-Oct-2012 PSA (PROSTATE SPECIFIC Comments: A copy of this report will be faxed to: Bettie Boswell in this order include: Draw Charge[i], Protime & INR, PSAPSA allowed more than once a year due to being a Diagonistic PSA not a screening PSA 10:25 ANTIGEN) (98275) PSA 8.11 ng/mL (Abnormal) Range: 0.00-4.00 10:25 PT (PROTHROMBIN TIME) Comments: PSA allowed more than once a year due to being a Diagonistic PSA not a screening PSACoumadin dosage=5,5,5,5,7.5 repeatDoes patient have a artifical heart valve? No ([facility]) (08175) 7. Saturday Dosage 7.5 mg (Normal) 6. [...] a Diagonistic PSA not a screening PSA (86573) Draw Drawn (Normal) 12-Sep-2012 PT (PROTHROMBIN TIME) Comments: Items in this order include: Draw Charge[i], Protime & INRDoes patient have a artifical heart valve? No 09:16 ([employer]) (42566) 6. Saturday Dosage Repeat mg (Normal) 5. Dosage 7.5 mg (Normal) 4. Saturday Dosage 5.0 mg (Normal) 3. Saturday Dosage 5.0 mg (Normal) 2. Saturday Dosage 5.0 mg (Normal) 1. Saturday Dosage 5.0 mg (Normal) INR 2.48 (Normal) PT 25.7 s (Abnormal) Range: 10.4-12.4 09:16 Routine Venipuncture Comments: Items in this order include: Draw Charge[i], Protime & INR (54490) Draw Drawn (Normal) 18-Aug-2012 PT (PROTHROMBIN TIME) Comments: Items in this order include: Protime & INRDoes patient have a artifical heart valve? No 11:44 ([employer]) (61099) 7. Saturday Dosage 5.0 mg (Normal) 6. [...] Days ago. Check by KB (HGB A1C) (02375) A1C 6.2 % (Normal) Range: 4.6-6.2 Comments: High risk of diabetes. 31-Jul-2012 PT (PROTHROMBIN TIME) Comments: Items in this order include: Draw Charge[i], Protime & INRINR value > 3.0 given to Estella by Beny Buckley patient have a artifical heart valve? No 13:32 ([facility]) (22142) 7. Saturday Dosage 5.0 mg (Normal) 6. [...] order include: Draw Charge[i], Protime & INR (66502) Draw Drawn (Normal) 23-Jun-2012 PSA (PROSTATE SPECIFIC Comments: A copy of this report will be faxed to: Bettie Boswell in this order include: Draw Charge[i], Protime & INR, PSAPSA allowed more than once a year due to being a Diagonistic PSA not a screening PSA 15:50 ANTIGEN) (24060) PSA 8.05 ng/mL (Abnormal) Range: 0.00-4.00 15:50 PT (PROTHROMBIN TIME) Comments: A copy of this report will be faxed to: Bettie Boswell in this order include: Draw Charge[i], Protime & INR , PSAPSA allowed more than once a year due to being a Diagonistic PSA not a screening ([facility]) (00720) PSADoes patient have a artifical heart valve? [...] a Diagonistic PSA not a screening PSA (88881) Draw Drawn (Normal) 13-May-2012 Draw Charge[i] Comments: [...] results to dr. hema boswell 14:28 ANTIGEN) (64105) PSA 16.45 ng/mL (Abnormal) Range: 0.00-4.00 14:28 PT (PROTHROMBIN TIME) Comments: Coumadin Dosage=5,5,5,7.5 Repeat. Took 7.5 on 04-27-12. ([facility]) (86897) 5. Dosage 7.5 Repeat mg (Normal) 4. Saturday Dosage 5.0 mg (Normal) 3. Saturday Dosage 5.0 mg (Normal) 2. Saturday Dosage 5.0 mg (Normal) 1. Saturday Dosage 7.5 mg (Normal) INR 2.17 (Normal) PT 22.7 s (Abnormal) Range: 10.4-12.4 14:28 Routine Venipuncture (40827) Draw Drawn (Normal) 13-May-2012 PSA (PROSTATE SPECIFIC Comments: A copy of this report will be faxed to: Bettie Boswell in this order include: PSA, Draw Charge[i]PSA allowed more than once a year due to being a Diagonistic PSA not a screening PSA 09:20 ANTIGEN) (58665) PSA 11.30 ng/mL (Abnormal) Range: 0.00-4.00 TSH (THYROID Comments: Items in this order include: TSH 16:40 STIMULATING HORMONE) (60403) TSH 1.36 uIU/ml (Normal) Range: 0.34-5.60 14:50 PT (PROTHROMBIN TIME) Comments: Items in this order include: Draw Charge[i], Basic Metabolic Panel, Hemoglobin A1C, Protime & INRLast Hbg A1C was ran 218 Days ago. Check by DL ([facility]) (51459) 5. Dosage Repeat mg (Normal) 4. Saturday [...] ran 218 Days ago. Check (HGB A1C) (25828) by DLplease draw enough blood so if [...] ran 218 Days ago. Check by DL (71338) Draw Drawn (Normal) DIGOXIN, DRUG ASSAY Comments: Items in this order include: CBC, Comprehensive Metabolic Panel, CKI, Digoxin, Draw Charge[i] 09:08 (42012) DIG 0.38 ng/mL (Abnormal) Range: 0.90-2.00 09:08 CK Comments: Items in this order include: CBC, Comprehensive Metabolic Panel, CKI, Digoxin, Draw Charge[i] CKI 143 U/L (Normal) Range: 39-308 09:08 CMP (17080) Comments: Items in this order include: CBC, [...] Metabolic Panel, CKI, Digoxin, Draw Charge[i] ONE! (84850) manual diff Not Indicated (Normal) mpv 6.84 [...] order include: Protime & INR, Draw Charge[i] (44587) Draw Drawn (Normal) 16:45 PT (PROTHROMBIN TIME) Comments: Items in this order include: Protime & INR, Draw Charge[i]Coumadin doasage=5,5,7.5 Repeat ([facility]) (87247) 7. Saturday Dosage 5.0 mg (Normal) 6. [...] order include: Draw Charge[i], PSA 11:11 ANTIGEN) (80875) PSA 6.92 ng/mL (Abnormal) Range: 0.00-4.00 11:11 Routine Venipuncture Comments: A copy of this report will be faxed to: Bettie Boswell in this order include: Draw Charge[i], PSA (79299) Draw Drawn (Normal) 17-Oct-2011 Routine Venipuncture 10:18 (22956) Draw Drawn (Normal) 10:18 TESTOSTERONE, FREE, Comments: Items in this order include: Protime & INR, Draw Charge[i], TESTOSTERONE, FREE, BIOAVAILABLE, AND TOTAL, LC/MS/ MSTesting performed at: [employer] [employer] [facility] [place], [address] [address], [place], [address], Advertising Manager: Michael Chávez [facility] TOTAL, LC/MS/MS ALBUMIN,SERUM [...] and benefits counseling. 10:18 PT (PROTHROMBIN TIME) ([facility]) (38756) 7. Saturday Dosage 5.0 mg (Normal) 6. [...] Panel, Hemoglobin A1C, Draw Charge[i] (HGB A1C) (09872) A1C 6.1 % (Normal) Range: 4.6-6.2 13:29 [...] (Normal) Range: 135-145 13:29 DIGOXIN, DRUG ASSAY (34013) DIG 0.85 ng/mL (Abnormal) Range: 0.90-2.00 07-Aug-2011 TESTOSTERONE, FREE, Comments: Items in this order include: TESTOSTERONE, FREE, BIOAVAILABLE, AND TOTAL, LC/MS/MSTesting performed at: [place] [place], [address], [place] , [address], [place] 12:53 WEAKLY BOUND AND TOTAL ratory Director: Michael Chávez MD.[facility] (55065) ALBUMIN,SERUM 4.4 g/dL (Normal) Range: 3.6-5.1 SEX [...] INR, Draw Charge[i]no change in coumadin dose ([facility]) (03209) 7. Saturday Dosage 7.5 mg (Normal) 6. [...] Metabolic Panel, Protime & INR, Draw Charge[i] ([facility]) (01838) 7. Saturday Dosage 5.0 mg (Normal) 5. [...] Boswell in this order include: PSA ANTIGEN) (17663) PSA 5.95 ng/mL (Abnormal) Range: 0.00-4.00 CBC-MALE- ORDER THIS Comments: Items in this order include : Hemoglobin A1C, Comprehensive Metabolic Panel, CBC 11:56 ONE! (57235) manual diff Not Indicated (Normal) mpv 7.65 [...] 6.24 10*3/uL (Normal) Range: 4.50-10.50 11:56 CMP ([id number]) Comments: Items in this order include: Hemoglobin [...] this order include: Digoxin, Draw Charge[i] 15:17 (27817) DIG 1.18 ng/mL (Normal) Range: 0.90-2.00 HEMOGLOBIN GLYCLATED Comments: Items in this order include: Hemoglobin A1C, Comprehensive Metabolic Panel, CBC 11:56 (HGB A1C) (00365) A1C 6.6 % (Abnormal) Range: 4.6-6.2 Comments: Consistent with diabetes. 13:48 PT (PROTHROMBIN TIME) Comments: change to coumadin 5mg x 2 day then 7.5mg x1 repeat the cycle; Items in this order include: Protime & INR, Draw Charge[i]cyclechange to coumadin 5mg x 2 day then 7.5mg x1 repeat the ([facility]) (06207) 6. Saturday Dosage 7.5 mg (Normal) 7. Saturday Dosage 5.0 mg (Normal) 5. Dosage 5.0 mg (Normal) 4. Saturday Dosage 5.0 mg (Normal) 2. Saturday Dosage 5.0 mg (Normal) 3. Saturday Dosage 7.5 mg (Normal) 1. Willie Dosage 5.0 mg (Normal) INR 1.55 (Normal) PT 15.2 s (Abnormal) Range: 10.4-12.4 PSA (PROSTATE SPECIFIC Comments: A copy of this report will be faxed to: Bettie Boswell in this order include: Protime & INR, PSA, Draw Charge[i] 09:43 ANTIGEN) (17154) PSA 5.84 ng/mL (Abnormal) Range: 0.00-4.00 09:43 PT (PROTHROMBIN TIME) Comments: no change in coumadin; no change in coumadin ([facility]) (58064) 7. Saturday Dosage 7.5 mg (Normal) 6. Saturday Dosage 5.0 mg (Normal) 5. Dosage 7.5 mg (Normal) 4. Saturday Dosage 5.0 mg (Normal) 3. Saturday Dosage 5.0 mg (Normal) 1. Willie Dosage 5.0 mg (Normal) 2. Saturday Dosage 7.5 mg (Normal) INR 3.45 (Normal) PT 32.9 s (Abnormal) Range: 10.4-12.4 23-Nov-2010 PT (PROTHROMBIN TIME) 10:03 ([facility]) (72884) 6. Saturday Dosage 7.5 mg (Normal) 7. Saturday Dosage 5 mg (Normal) 1. Saturday Dosage 5 mg (Normal) 2. Saturday Dosage 7.5 mg (Normal) 3. Saturday Dosage 5 mg (Normal) 4. Saturday Dosage 7.5 mg (Normal) 5. Dosage 5 mg (Normal) INR 2.16 (Normal) PT 21.0 s (Abnormal) Range: 10.4-12.4 19-Oct-2010 PT (PROTHROMBIN TIME) 15:16 ([facility]) (07392) 6. Saturday Dosage 5 mg (Normal) 7. Saturday Dosage 7.5 mg (Normal) 3. Saturday Dosage 7.5 mg (Normal) 4. Saturday Dosage 5 mg (Normal) 5. Dosage 7.5 mg (Normal) 1. Willie Dosage 7.5 mg (Normal) 2. Saturday Dosage 5 mg (Normal) INR 2.13 (Normal) PT 20.7 s (Abnormal) Range: 10.4-12.4 12-Sep-2010 PT (PROTHROMBIN TIME) 11:03 ([facility]) (38916) INR 2.57 (Normal) PT (PROTHROMBIN TIME) 24.8 s (Abnormal) Range: 11.5-13.5 22-Aug-2010 PT (PROTHROMBIN TIME) 13:41 ([facility]) (64876) 09-Aug-2010 PSA, MEDICARE (G0103) Comments: please fax to dr hema boswell 09:54 PSA (Medicare) 4.83 ng/mL (Abnormal) Range: 0 - 4 09:34 PT (PROTHROMBIN TIME) ([facility]) (80729) INR 2.68 (Normal) PT (PROTHROMBIN TIME) 25.8 s (Abnormal) Range: 11.5-13.5 27-Jun-2010 PT (PROTHROMBIN TIME) 08:38 ([facility]) (90134) 26-Jun-2010 PT (PROTHROMBIN TIME) 16:21 ([facility]) (92793) INR 1.89 (Normal) PT (PROTHROMBIN TIME) 18.4 s (Abnormal) Range: 11.5-13.5 Treatment Plan LIPID PANEL (62497); Ordered: 10/28/2015; Note: Verbal order from Dr. [...] problems with his a-fib at todays visit. 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 He said he is having quite a bit of pain with the nodule and some occasional drainage. Seems to be recurrent for him. 09:10 to 09:52 [facility] Office Visit - PG (pyogenic granuloma) [...] problems": He continues with his usual medications.[facility] Lab entry only - Encounter for long-term (current) use of anticoagulants ( V58.61 | Z79.01) On 07-Jul-2015 [facility] 16:55 to 16:56 Office Visit - [...] stairs and I have to crawl. [facility] Historical Summary On [facility] 12:33 to 12:36 Lab entry only - Encounter for long-term (current) use of anticoagulants ( V58.61 | Z79.01) On [facility] 17:37 to 17:39 Lab entry only - Elevated PSA (790.93) On [facility] 10:10 to 10:11 Lab entry only - Encounter for long-term (current) use of anticoagulants ( V58.61 | Z79.01), Encounter for long-term (current) use of anticoagulants ( V58.61 | Z79.01) On 14-Jan-2015 [facility] 14:52 to 14:53 Lab entry only - Encounter for long-term (current) use of anticoagulants ( V58.61 | Z79.01), Encounter for long-term (current) use of anticoagulants ( V58.61 | Z79.01) On 29-Nov-2014 [facility] 12:31 to 15:09 Medication Entry - Diabetes mellitus (250.00 | E11.9) On 12-Nov-2014 [facility] 11:46 to 11:53 Medication Entry - Cellulitis, leg (682.6 | L03.119) On 11-Nov-2014 [facility] 09:48 to 10:00 Office Visit - [...] into care": He feels things are improved.[facility] Historical Summary On 27-Oct-2014 [facility] 15:03 to 15:08 Lab entry only - Fibrillation, atrial (427.31), Encounter for long-term ( current) use of anticoagulants (V58.61 | Z79.01) On 18-Oct-2014 [facility] 17:08 to 17:09 Medication Entry - Gout (274.9 | M10.9) On 12-Oct-2014 [facility] 16:17 to 16:22 Lab entry only - Encounter for long-term (current) use of anticoagulants ( V58.61 | Z79.01) On 21-Sep-2014 [facility] 15:31 to 15:33 Radiology Visit - Carotid stenosis (433.10 | I65.29) On 14-Sep-2014 [facility] 09:33 to 09:36 Lab entry only - Encounter for long-term (current) use of anticoagulants ( V58.61 | Z79.01) On 24-Aug-2014 [facility] 16:31 to 16:34 Office Visit - Health education (V65.40 | Z71.9), Prevnar (PCV13)FOR MEDICARE USE ONLY Pneumovax injection (V03.82) 50475, Encounter for long-term ( current) use of [...] screening. He mentions the "discoloration" of ankles.[facility] Historical Summary On 11-Aug-2014 [facility] 16:16 to 16:19 Lab entry only - Fibrillation, atrial (427.31), Encounter for long-term ( current) use of anticoagulants (V58.61 | Z79.01) On 06-Aug-2014 [facility] 16:41 to 16:43 Medication Entry - Benign essential hypertension (401.1 | I10) On 21-Jun-2014 [facility] 11:12 to 11:14 Lab entry only - Encounter for long-term (current) use of anticoagulants ( V58.61 | Z79.01) On 03-Jun-2014 [facility] 16:13 to 16:15 Lab entry only - Encounter for long-term (current) use of anticoagulants ( V58.61 | Z79.01) On [facility] 13:22 to 13:23 Lab entry only - Elevated PSA (790.93), Encounter for long-term (current) use of anticoagulants (V58.61 | Z79.01) On [facility] 14:27 to 14:28 Office Visit - [...] in the morning and on stairs. [facility] Historical Summary On 28-Dec-2013 [facility] 12:26 to 12:29 Medication Entry - Encounter for long-term (current) use of anticoagulants ( V58.61 | Z79.01), Diabetes mellitus (250.00 | E11.9), Fibrillation, atrial ( 427.31) On 03-Nov-2013 [facility] 09:01 to 11:53 Medication Entry - Fibrillation, atrial (427.31), Diabetes mellitus (250.00 | E11.9) On 30-Oct-2013 [facility] 15:55 to 16:00 Lab entry only - Encounter for long-term (current) use of anticoagulants ( V58.61 | Z79.01) On 27-Oct-2013 [facility] 17:57 to 17:59 Office Visit - [...] M.D. after being in the hospital at [facility] on 10/16/13 & discharged on 10/17/13 dx jasmeet bhagat stone, inr was done prior to visit.) . Note for "Transition into care": He passed a kidney stone a week ago.[facility] Historical Summary On 23-Oct-2013 [facility] 14:42 to 14:45 Lab entry only - Encounter for long-term (current) use of anticoagulants ( V58.61 | Z79.01) On 20-Oct-2013 [facility] 16:31 to 16:33 Lab entry only - Encounter for long-term (current) use of anticoagulants ( V58.61 | Z79.01) On 16-Sep-2013 [facility] 10:14 to 10:15 Lab entry only - Elevated PSA (790.93) On 15-Sep-2013 [facility] 11:11 to 11:12 Lab entry only - Encounter for long-term (current) use of anticoagulants ( V58.61 | Z79.01) On 07-Aug-2013 [facility] 14:32 to 14:33 Lab entry only - Benign essential hypertension (401.1 | I10), Diabetes mellitus (250.00 | E11.9) On 07-Aug-2013 [facility] 11:18 to 11:19 Lab entry only - Encounter for long-term (current) use of anticoagulants ( V58.61 | Z79.01) On 01-May-2013 [facility] 10:33 to 10:38 Office Visit - [...] did miss some meds while he traveled.[facility] Historical Summary On 29-Apr-2013 [facility] 11:46 to 11:49 Lab entry only - Encounter for long-term (current) use of anticoagulants ( V58.61 | Z79.01) On [facility] 16:39 to 16:42 Lab entry only - Encounter for long-term (current) use of anticoagulants ( V58.61 | Z79.01) On [facility] 19:40 to 19:42 Lab entry only - Elevated PSA (790.93) On [facility] 12:03 to 12:07 Office Visit - [...] "Cough": He has not had an antibiotic.[facility] Lab entry only - Encounter for long-term (current) use of anticoagulants ( V58.61 | Z79.01) On 16-Dec-2012 [facility] 18:21 to 18:23 Lab entry only - Encounter for long-term (current) use of anticoagulants ( V58.61 | Z79.01) On 27-Nov-2012 [facility] 16:52 to 16:53 Lab entry only - Encounter for long-term (current) use of anticoagulants ( V58.61) On 26-Nov-2012 [facility] 15:04 to 15:05 Office Visit - [...] thing in the morning and on stairs.[facility] Historical Summary On 29-Oct-2012 [facility] 16:15 to 16:17 Lab entry only - Encounter for long-term (current) use of anticoagulants ( V58.61) On 15-Oct-2012 [facility] 09:51 to 09:57 Lab entry only - Encounter for long-term (current) use of anticoagulants ( V58.61), Elevated PSA (790.93) On 14-Oct-2012 [facility] 10:25 to 10:26 Lab entry only - Encounter for long-term (current) use of anticoagulants ( V58.61) On 12-Sep-2012 [facility] 13:44 to 13:45 Medication Entry - Edema (782.3), Fibrillation, atrial (427.31) On 20-Aug-2012 [facility] 11:10 to 11:12 Medication Entry - Fibrillation, atrial (427.31), Edema (782.3) On 19-Aug-2012 [facility] 17:29 to 18:11 Medication Entry - Encounter for long-term (current) use of anticoagulants ( V58.61), Fibrillation, atrial (427.31), Diabetes mellitus (250.00) On 2011 [facility] 17:44 to 17:53 Office Visit - 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), Inflamed seborrheic keratosis (702.11), Hyperglycemia (790.29), Encounter for long-term (current) use of anticoagulants (V58.61), Fibrillation, atrial (427.31) On 01-Aug-2012 Encounter Reason: Follow up for chronic condition - The patient feels well with minor complaints (here today for a 3 month follow up with Dr. Romero ) .[facility] 09:34 to 10:39 Medication Entry - Encounter for long-term (current) use of anticoagulants ( V58.61) On 31-Jul-2012 [facility] 18:21 to 18:22 Historical Summary On 31-Jul-2012 [facility] 11:40 to 11:42 Lab entry only - Encounter for long-term (current) use of anticoagulants ( V58.61) On 23-Jun-2012 [facility] 18:47 to 18:52 Lab entry only - Elevated PSA (790.93), Encounter for long-term (current) use of anticoagulants (V58.61) On 23-Jun-2012 [facility] 15:48 to 15:53 Office Visit - Adjustment disorder with depressed mood (309.0), Encounter for long-term (current) use of anticoagulants (V58.61), Elevated PSA (790.93) On Encounter Reason: Follow up for chronic condition - The patient feels well with minor complaints (here for a 6 week follow up visit do to a new medication but did not start the medication).[facility] 11:19 to 13: 39 Historical Summary On 30-Apr-2012 [facility] 11:50 to 11:52 Lab entry only - Encounter for long-term (current) use of anticoagulants ( V58.61) On 28-Apr-2012 [facility] 17:23 to 17:26 Lab entry only - Elevated PSA (790.93), Encounter for long-term (current) use of anticoagulants (V58.61) On 28-Apr-2012 [facility] 14:19 to 14:22 Office Visit - [...] had lab done prior to appt today).[facility] Lab entry only - Edema (782.3), Hyperglycemia (790.29), Encounter for long- term (current) use of anticoagulants (V58.61) On [facility] 11:06 to 11:14 Lab entry only - Elevated PSA (790.93), Fibrillation, atrial (427.31), Edema ( 782.3) On [facility] 09:02 to 09:05 Lab entry only - Encounter for long-term (current) use of anticoagulants ( V58.61) On [facility] 16:44 to 16:45 Medication Entry On 26-Oct-2011 [facility] 13:30 to 13:32 Lab entry only - Elevated PSA (790.93) On 23-Oct-2011 [facility] 11:01 to 11:04 Lab entry only - Encounter for long-term (current) use of anticoagulants ( V58.61), Low testosterone (257.2) On 17-Oct-2011 [facility] 10:15 to 10:17 Medication Entry - Fibrillation, atrial (427.31) On 04-Oct-2011 [facility] 09:26 to 09:38 Medication Entry - Fibrillation, atrial (427.31), Edema (782.3), Encounter for long-term (current) use of anticoagulants (V58.61), Benign prostatic hypertrophy without lower urinary tract symptoms (LUTS) (600.00) On 02-Oct-2011 [facility] 18:56 to 19:02 Medication Entry - Encounter for long-term (current) use of anticoagulants ( V58.61), Fibrillation, atrial (427.31), Edema (782.3) On 26-Sep-2011 [facility] 11:06 to 11:11 Medication Entry - Fibrillation, atrial (427.31), Encounter for long-term ( current) use of anticoagulants (V58.61) On 24-Sep-2011 [facility] 10:41 to 10:49 Lab entry only - Low testosterone (257.2) On 10-Aug-2011 [facility] 13:03 to 13:05 Lab entry only - Hyperglycemia (790.29), Encounter for long-term (current) use of anticoagulants (V58.61), Fibrillation, atrial (427.31) On 08-Aug-2011 [facility] 13:27 to 13:29 Office Visit - [...] 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." [facility] Historical Summary On 06-Aug-2011 [facility] 12:22 to 12:24 Medication Entry - Fibrillation, atrial (427.31) On 05-Jun-2011 [facility] 08:54 to 08:59 Lab entry only - Encounter for long-term (current) use of anticoagulants ( V58.61) On 15-May-2011 [facility] 18:48 to 18:50 Office Visit - [...] is diabetes, hypertension, cardiovascular disorder and other.[facility] Medication Entry - Benign prostatic hypertrophy without lower urinary tract symptoms (LUTS) (600.00) On 19-Apr-2011 [facility] 08:49 to 08:51 Lab entry only - Benign prostatic hypertrophy without lower urinary tract symptoms (LUTS) (600.00) On 10-Apr-2011 [facility] 15:15 to 15:19 Office Visit - [...] seeing dr. boswell the middle of ). [facility] Historical Summary On [facility] 16:05 to 16:18 Lab entry only - Encounter for long-term (current) use of anticoagulants ( V58.61) On [facility] 17:34 to 17:36 Lab entry only - Encounter for long-term (current) use of anticoagulants ( V58.61), Elevated PSA (790.93) On [facility] 09:42 to 09:43 Lab entry only - Encounter for long-term (current) use of anticoagulants ( V58.61) On 24-Nov-2010 [facility] 08:55 to 08:57 Lab entry only - Encounter for long-term (current) use of anticoagulants ( V58.61) On 20-Oct-2010 [facility] 14:42 to 14:46 Historical Summary - Encounter for long-term (current) use of anticoagulants ( V58.61) On 13-Sep-2010 [facility] 10:53 to 10:59 Historical Summary 12-Sep-2010 to 13-Sep-2010 [facility] Lab entry only - Encounter for long-term (current) use of anticoagulants ( V58.61) On 14-Aug-2010 [facility] 17:44 to 17:49 Historical Summary - Elevated PSA (790.93) 09-Aug-2010 to 15-Aug-2010 [facility] Lab entry only - Encounter for long-term (current) use of anticoagulants ( V58.61) 27-Jun-2010 to 28-Jun-2010 [facility] Lab entry only - Encounter for long-term (current) use of anticoagulants ( V58.61) On 26-Jun-2010 [facility] 16:21 to 22:23 Insurance Vijay Yuan; gwen guarantorMedicare [employer] [facility] [employer]
--- OUTSIDE RECORDS SUMMARY | 2017-10-22 17:45 | External Medical Summary | Referral Summary ---
:1940 Author [facility] Address [address] [place] [address] [place] [id number] Care Team Providers Name Role Phone Blayne Blake Primary Care Physician Encounter VC Date(s): 01/31/16 - 01/31/16 [facility] [place] [phone] Discharge Disposition: 01-Home or Self Care Attending Physician: Jasvir Serrato APRN Admitting Physician: Jasvir Serrato APRN Vital Signs Most recent to oldest [Reference Range]: 1 Peripheral Pulse Rate [60-100 bpm] 49 bpm *LOW* (01/31/16 10:30 AM) Respiratory Rate [14-20 br/min] 18 br/min (01/31/16 10:30 AM) Blood Pressure [90-140/60-90 mmHg] 118/60 mmHg (01/31/16 10:30 AM) SpO2 98 % (01/31/16 10:30 AM) Problem List No data available for this section Allergies, Adverse Reactions, Alerts Substance Reaction Severity Status penicillin Active Medications allopurinol 300 mg oral tablet 150 mg 0.5 tabs, Oral, Daily, # 45 tabs, 0 Refill(s) Start Date: 01/04/16 Status: OrderedCartia XT 240 mg/24 hours oral capsule, extended release 240 mg 1 caps, Oral, Daily, 0 Refill(s) Start Date: 01/04/16 Status: Ordereddigoxin 250 mcg (0.25 mg) oral tablet 250 mcg 1 tabs, Oral, Daily, # 30 tabs, 0 Refill(s) Start Date: 01/04/16 Status: OrderedEliquis 5 mg oral tablet 5 mg 1 tabs, Oral, BID, # 60 tabs, 0 Refill(s) Start Date: 01/04/16 Status: Orderedlisinopril 10 mg oral tablet 10 mg 1 tabs, Oral, Daily, # 90 tabs, 0 Refill(s) Start Date: 01/04/16 Status: OrderedmetFORMIN 500 mg oral tablet 500 mg 1 tabs, Oral, Daily, 0 Refill(s) Start Date: 01/04/16 Status: Orderedterazosin 2 mg, Oral, Bedtime (once a day), 0 Refill(s) Start Date: 01/04/16 Status: OrderedvalACYclovir 1 g oral tablet 1 g 1 tabs, Oral, TID, X 7 days, # 21 tabs, 0 Refill(s), Pharmacy: [id number], 1 tabs Oral TID,x7 days Start Date: 01/31/16 Stop Date: 02/07/16 Status: Ordered Results No data available for this section Immunizations No data available for this section Procedures Procedure Date Related Diagnosis Body Site Colonoscopy1 10/06/14 1Normal study. Repeat in 10 yrs Social History Social History Type Response Smoking Status Never smoker Assessment and Plan No data available for this section
--- OUTSIDE RECORDS SUMMARY | 2017-10-22 17:46 | External Medical Summary | Continuity of Care Document ---
:1940 Author Organization [facility] Address [address] [place] [address] Phone Care Team Providers Name Role Phone James Early MD Primary Care Provider James Early MD Unavailable [employer] Provider Jorje Armstrong MD Unavailable Carolee [...] Quantity: 30 {Tablet} Refills: 6 Ordered:28-Oct-2014 James Early MD Start 28-Oct-2014 Active Comments:1/2 daily ATORVASTATIN CALCIUM, 20MG (Oral Tablet) 1 (one) Tablet at bedtime for 30 days Quantity: 30 {Tablet} Refills: 10 Ordered:25-Jul-2015 James Early MD Start 25-Jul-2015 Active COLCHICINE-PROBENECID, 0.5-500MG (Oral Tablet) 1 (one) Tablet Tablet as needed for 14 days Quantity: 30 {Tablet} Refills: 2 Ordered:12-Oct-2014 James Early MD Start 12-Oct-2014 Active Comments:Medication taken as [...] Quantity: 90 {Capsule} Refills: 4 Ordered:02-Oct-2011 James Early MD Start 02-Oct-2011 Active LISINOPRIL, 10MG (Oral [...] Quantity: 4 {Syrup} Refills: 1 Ordered:02-Jan-2013 James Early MD Start 02-Jan-2013 Active Comments:Medication taken as needed. TRIAMTERENE-HCTZ, 37.5-25MG (Oral Capsule) PRN (37.5-25 MG) Active WARFARIN SODIUM, 5MG (Oral Tablet) one Tablet 5mg for one day then 7.5mg for 2 days then repeat cycle for 90 days Quantity: 135 {Tablet} Refills: 4 Ordered:08-Dec-2012 James Early MD Start 08-Dec-2012 Active BACTRIM DS, 800-160MG [...] Comments:started on 10/17/13 after being dismissed from [facility] for kidney stone by gale CITALOPRAM [...] Quantity: 20 {Tablet_ER_12HR} Refills: 0 Ordered:02-Jan-2013 James Early MD Start 02-Jan-2013 End 12-Jan-2013 Inactive Comments:use [...] dx kidney stone from being discharged from [facility] testrone cream 10% apply 0.5ml daily [...] Quantity: 6 {Tablet} Refills: 0 Ordered:02-Jan-2013 James Early MD Start 02-Jan-2013 End 07-Jan-2013 Inactive Allergies and Adverse Reactions Name Dates Details No Known Allergies (Allergy) Onset: Status: Active No Known Drug Allergies (Allergy) Onset: Status: Active Past Medical History No Significant Medical History. Procedures Procedure Dates Details How to access health information Completed:27-Jul-2015 online Skin Conditions Completed:27-Jul-2015 Follow up in 2 weeks Ordered:27-Jul-2015 HIGH DOSE QUADRIVALENT INFLUENZA Ordered:25-Jul-2015 VACCINE ([id number]) ADMINISTRATION OF INFLUENZA VIRUS Ordered:25-Jul-2015 VACCINE (G0008) Follow up in 3 months Ordered:25-Jul-2015 Follow up in 4 months Ordered: X-RAY EXAM OF KNEE, 1 OR 2 VIEWS Completed: Comments: right (12820) X-RAY EXAM OF BOTH KNEES, Completed: STANDING ([id number]) How to access health information Completed: online Follow up - Keep appt as scheduled Ordered:28-Oct-2014 CAROTID BILATERAL US ([id number]) Completed:14-Sep-2014 Comments: Verbal order from Dr. James Early Follow up in 6 months Ordered:12-Aug-2014 PREVNAR 13 VALENT PNEUMOCOCCAL Completed:12-Aug-2014 VACCINE ([id number]) ADMINISTRATION OF PNEUMOCOCCAL Ordered:12-Aug-2014 CONJUGATE VACCINE (G0009) How to access health information Completed:12-Aug-2014 online Follow up in 6 months Ordered: Follow up in 2 months Ordered:26-Oct-2013 ADMIN INFLUENZA VIRUS VAC: FLU VACC Completed:26-Oct-2013 PRSV FREE INC ANTIG ([id number]) ADMINISTRATION OF INFLUENZA VIRUS Ordered:26-Oct-2013 VACCINE (G0008) Follow up in 6 months Ordered:30-Apr-2013 Follow up - Keep appt as scheduled Ordered:02-Jan-2013 Follow up in 6 months Ordered:30-Oct-2012 Follow up in 3 months Ordered:01-Aug-2012 Follow up in 3 months Ordered:01-May-2012 Follow up in 6 weeks Ordered: ADMINISTRATION OF INFLUENZA VIRUS Ordered:14-May-2011 VACCINE (G0008) FLU VACC PRSV FREE INC ANTIG Completed:14-May-2011 (20357) Follow up in 2 months Ordered:14-May-2011 Follow up in 2 months Ordered: Annual Eye Exam Completed:22-Nov-2008 Colonoscopy, Screening Completed: Colonoscopy, Screening Completed:06-Oct-2014 Flu Vaccine Completed:26-Oct-2013 Flu Vaccine Completed:06-Jun-2012 Comments: [facility] Flu Vaccine Completed:14-May-2011 Comments: high dose Pneumovax Completed:2008 prevnar 13 Completed:12-Aug-2014 PSA Completed:28-Apr-2012 Comments: (16.45) PSA Completed:10-Apr-2011 Comments: (5.95) PSA Completed:23-Jun-2012 Comments: (8.05) PSA Completed:14-Oct-2012 Comments: (8.11) PSA Completed: Comments: (5.60) PSA Completed:15-Sep-2013 Comments: (5.40) PSA Completed: Comments: (6.15) PSA Completed:24-Aug-2014 Comments: (7.11) PSA Completed: Comments: (6.55) Immunization Name Dates Details Fluzone Administered on:14-May-2011 Comments: Site: Deltoid (Left); high dose Lot #: [id number] Influenza, preserv. free, enhanced immunogncty, IM Administered on:2013 Comments: Site: Deltoid (Left) Lot #: [id number] Pneumococcal conjugate vaccine, 13 valent, IM Administered on:12-Aug-2014 Comments: Site: Deltoid (Left) Lot #: [id number] Social History Name Dates Details Tobacco use: [...] Comments: The left neck Final 10:36 SINGLE (10451) lesion was removed and also the left [...] not sent to pathology. 10:35 PUNCH BIOPSY ([id number]) Comments: After Final FIRST BIOPSY cleansing the left forearm with Hibiclens solution x3, the area was anesthetized with 1 cc 1% lidocaine and a 2 mm punch was used and elevated with sterile scissors and sent to pathology. Silver nitrate stick was for cautery. 08-Sep-2015 PT (PROTHROMBIN TIME) Comments: Does patient have a artifical heart valve? No 16:21 (Total Attorneys) (75525) 8. Saturday Dosage 5.0 mg (Normal) 9. Saturday Dosage 7.5 mg (Normal) 6. Saturday Dosage 7.5 mg (Normal) 7. Dosage 7.5 mg (Normal) 5. Saturday Dosage 5.0 mg (Normal) 4. Saturday Dosage 7.5 mg (Normal) 3. Saturday Dosage 7.5 mg (Normal) INR 2.21 (Normal) PT 24.2 s (Abnormal) Range: 9.3-11.7 16:21 Routine Venipuncture ([id number]) Draw Drawn (Normal) 06-Jul-2015 PT (PROTHROMBIN TIME) Comments: Items in this order include: Draw Charge[i], Protime & INRDoes patient have a artifical heart valve? No 15:06 (Total Attorneys) (02923) 9. Saturday Dosage 7.5 mg (Normal) 8. [...] order include: Draw Charge[i], Protime & INR (97091) Draw Drawn (Normal) [facility] ([id number]) Comments: Items in this order include: Basic [...] include: A COPY TO [kyung], PSA ANTIGEN) (57508) PSA 6.55 ng/mL (Abnormal) Range: 0.00-4.00 09:[address] Pop Comments: A copy of this report will be faxed to: Bettie Pop in this order include: A COPY TO [kyung], PSA Ordering Doctor . (Normal) 09:15 PT (PROTHROMBIN TIME) Comments: Items in this order include: Draw Charge[i], Protime & INRDoes patient have a artifical heart valve? No ([facility]) (90186) 8. Saturday Dosage 7.5 mg (Normal) 9. [...] order include: Draw Charge[i], Protime & INR (56701) Draw Drawn (Normal) 14-Jan-2015 PT (PROTHROMBIN TIME) Comments: Items in this order include: Draw Charge[i], Protime & INRDoes patient have a artifical heart valve? No 09:28 ([facility]) ([id number]) 9. Saturday Dosage 5.0 mg (Normal) 7. [...] order include: Draw Charge[i], Protime & INR (28849) Draw Drawn (Normal) -Oct-2014 PT (PROTHROMBIN TIME) Comments: Items in this order include: Draw Charge[i], Protime & INRDoes patient have a artifical heart valve? No 10:48 ([facility]) (81204) 9. Saturday Dosage 7.5 mg (Normal) 8. [...] order include: Draw Charge[i], Protime & INR (58700) Draw Drawn (Normal) 29-Nov-2014 PT (PROTHROMBIN TIME) Comments: Items in this order include: Draw Charge[i], Protime & INRDoes patient have a artifical heart valve? No 10:28 ([facility]) ([id number]) 9. Saturday Dosage 5.0 mg (Normal) 8. [...] order include: Draw Charge[i], Protime & INR (53237) Draw Drawn (Normal) 21-Sep-2014 PT (PROTHROMBIN TIME) Comments: Items in this order include: Draw Charge[i], Protime & INRDoes patient have a artifical heart valve? No 10:08 ([facility]) (70626) 9. Saturday Dosage 5.0 mg (Normal) 7. [...] order include: Draw Charge[i], Protime & INR (32914) Draw Drawn (Normal) 24-Aug-2014 Routine Venipuncture Comments: Items in this order include: Protime & INR, Draw Charge[i] 09:59 (58617) Draw Drawn (Normal) 09:59 PT (PROTHROMBIN TIME) Comments: Items in this order include: Protime & INR, Draw Charge[i]INR value > 3.0 given to Estella by Beny Buckley patient have a artifical heart valve? No ([facility]) (13967) 9. Saturday Dosage 7.5 mg (Normal) 7. [...] Panel, Hemoglobin A1C, Urine Microalbumin, CBC ONE! (84750) manual diff Not Indicated (Normal) mpv 9.60 [...] Metabolic Panel, Hemoglobin A1C, Urine Microalbumin, CBC (87444) U A:C RATIO <30 mg/g Normal Range: <30 mg/g Normal (Normal) U CREAT 200 mg/dL (Normal) Range: 10-300 U ALB 80 mg/L (Abnormal) Range: 10 mg/L 09:59 HEMOGLOBIN GLYCLATED Comments: Items in this order include: Digoxin , PSA, Basic Metabolic Panel, Hemoglobin A1C, Urine Microalbumin, CBC (HGB A1C) (06374) A1C 5.9 % (Normal) Range: 4.6-6.2 Comments: Increased risk of diabetes. 09:59 [facility] ([id number]) Comments: Items in this order include: Digoxin, [...] Panel, Hemoglobin A1C, Urine Microalbumin, CBC ANTIGEN) (69902) PSA 7.11 ng/mL (Abnormal) Range: 0.00-4.00 09:59 DIGOXIN (63926) Comments: Items in this order include: Digoxin, PSA , Basic Metabolic Panel, Hemoglobin A1C, Urine Microalbumin, CBCTime of Last Dose? 08/23/2014 8:00 AMDosage? 0.25 DIG 0.36 ng/mL (Abnormal) Range: 0.90-2.00 05-Aug-2014 PT (PROTHROMBIN TIME) Comments: Items in this order include: Draw Charge[i], Protime & INRDoes patient have a artifical heart valve? No 10:48 ([facility]) (44950) 8. Saturday Dosage 7.5 mg (Normal) 9. [...] order include: Draw Charge[i], Protime & INR (17203) Draw Drawn (Normal) 03-Jun-2014 PT (PROTHROMBIN TIME) Comments: Items in this order include: Draw Charge[i], Protime & INRDoes patient have a artifical heart valve? No 13:56 (Total Attorneys) (45226) 9. Saturday Dosage 7.5 mg (Normal) 8. [...] order include: Draw Charge[i], Protime & INR (94756) Draw Drawn (Normal) PT (PROTHROMBIN TIME) Comments: Items in this order include: Protime & INRDoes patient have a artifical heart valve? No 14:25 ([facility]) (10647) 9. Saturday Dosage 5.0 mg (Normal) 8. [...] this order include: Draw Charge[i], PSA ANTIGEN) (53472) PSA 6.15 ng/mL (Abnormal) Range: 0.00-4.00 14:25 Routine Venipuncture Comments: A copy of this report will be faxed to: Bettie Pop in this order include: Draw Charge[i], PSA ([id number]) Draw Drawn (Normal) HEMOGLOBIN GLYCLATED Comments: Items in this order include: Hemoglobin A1C, Draw Charge[i], Comprehensive Metabolic Panel, Uric Acid 15:06 (HGB A1C) (00179) A1C 5.7 % (Normal) Range: 4.6-6.2 15:06 CMP (18543) Comments: Items in this order include: Hemoglobin [...] (Normal) Range: 135-145 15:06 URIC ACID BLOOD (51226) Comments: Items in this order include: Hemoglobin A1C, Draw Charge[i], Comprehensive Metabolic Panel, Uric Acid Uric Acid 8.0 mg/dL (Abnormal) Range: 3.6-7.7 15:06 Routine Venipuncture Comments: Items in this order include: Hemoglobin A1C, Draw Charge[i], Comprehensive Metabolic Panel, Uric Acid (73984) Draw Drawn (Normal) PT (PROTHROMBIN TIME) Comments: Items in this order include: Draw Charge[i], Protime & INRDoes patient have a artifical heart valve? No 14:27 ([facility]) (90639) 8. Saturday Dosage 5.0 mg (Normal) 9. [...] order include: Draw Charge[i], Protime & INR (59857) Draw Drawn (Normal) 26-Oct-2013 Draw Charge[i] Comments: Items in this order include: Basic Metabolic Panel, Draw Charge[i] 17:08 Draw Drawn (Normal) 17:05 [facility] (28931) Comments: Items in this order include: Basic [...] patient have a artifical heart valve? No ([facility]) (27765) 9. Saturday Dosage 5.0 mg (Normal) 7. [...] order include: Draw Charge[i], Protime & INR (21828) Draw Drawn (Normal) 15-Sep-2013 PSA (PROSTATE SPECIFIC Comments: A copy of this report will be faxed to: Bettie Pop in this order include: A COPY TO [i], PSAPSA allowed more than once a year due to being a Diagonistic PSA not a screening PSA 11:05 ANTIGEN) (40532) PSA 5.40 ng/mL (Abnormal) Range: 0.00-4.00 11:05 [...] this order include: Comprehensive Metabolic Panel, Hemoglobin [id number] Hgb A1C was ran 99 Days ago. Check by MARGARITA 10:38 (HGB A1C) (95511) A1C 5.9 % (Normal) Range: 4.6-6.2 Comments: Increased risk of diabetes. 10:38 [facility] (93058) Comments: Items in this order include: Comprehensive Metabolic Panel, Hemoglobin [id number] Hgb A1C was ran 99 Days ago. [...] patient have a artifical heart valve? No ([facility]) (41297) 9. Saturday Dosage 5.0 (cycle of 5,5,7.5 [...] order include: Draw Charge[i], Protime & INR (96791) Draw Drawn (Normal) 10:38 DIGOXIN (68562) Comments: Items in this order include: DigoxinTime of Last Dose? 08/06/2013 8:30 AMDosage? 0.25 mg daily DIG 0.48 ng/mL (Abnormal) Range: 0.90-2.00 30-Apr-2013 HEMOGLOBIN GLYCLATED Comments: Items in this order include: Comprehensive Metabolic Panel, CBC, Hemoglobin [id number] Hgb A1C was ran 225 Days ago. Check by ms 11:58 (HGB A1C) (05690) A1C 6.1 % (Normal) Range: 4.6-6.2 11:58 CBC MALE- ORDER THIS Comments: Items in this order include: Comprehensive Metabolic Panel, CBC, Hemoglobin [id number] Hgb A1C was ran 225 Days ago. Check by ms ONE! (52501) manual diff Not Indicated (Normal) mpv 4.88 [...] 6.15 10*3/uL (Normal) Range: 4.50-10.50 11:58 CMP (46659) Comments: Items in this order include: Comprehensive Metabolic Panel, CBC, Hemoglobin S1XMavg Hgb A1C was ran 225 Days ago. [...] patient have a artifical heart valve? No ([facility]) (06399) 4. Saturday Dosage Repeat mg (Normal) 3. Saturday Dosage 7.5 mg (Normal) 2. Saturday Dosage 5.0 mg (Normal) 1. Saturday Dosage 5.0 mg (Normal) INR 2.60 (Normal) PT 26.8 s (Abnormal) Range: 10.4-12.4 PT (PROTHROMBIN TIME) Comments: Items in this order include: Draw Charge[i], Protime & INRDoes patient have a artifical heart valve? No 15:12 ([facility]) (64645) 5. Dosage Repeat mg (Normal) 4. Saturday Dosage 5.0 mg (Normal) 3. Saturday Dosage 5.0 mg (Normal) 2. Saturday Dosage 7.5 mg (Normal) INR 2.31 (Normal) PT 24.0 s (Abnormal) Range: 10.4-12.4 15:12 Routine Venipuncture Comments: Items in this order include: Draw Charge[i], Protime & INR ([id number]) Draw Drawn (Normal) PSA (PROSTATE SPECIFIC Comments: A copy of this report will be faxed to: Bettie Pop in this order include: PSA, Draw Charge[i]PSA allowed more than once a year due to being a Diagonistic PSA not a screening PSA 10:00 ANTIGEN) (40580) PSA 5.60 ng/mL (Abnormal) Range: 0.00-4.00 10:00 [...] patient have a artifical heart valve? No ([facility]) (83676) 3. Saturday Dosage Repeat mg (Normal) 2. Saturday Dosage 7.5 mg (Normal) 1. Saturday Dosage 5.0 mg (Normal) INR 2.64 (Normal) PT 27.2 s (Abnormal) Range: 10.4-12.4 10:09 Routine Venipuncture Comments: Items in this order include: Draw Charge[i], Protime & INR (51127) Draw Drawn (Normal) 16-Dec-2012 PT (PROTHROMBIN TIME) Comments: Items in this order include: Draw Charge[i], Protime & INRDoes patient have a artifical heart valve? No 10:46 ([facility]) (54789) 4. Saturday Dosage Repeat mg (Normal) 3. Saturday Dosage 5.0 mg (Normal) 2. Saturday Dosage 7.5 mg (Normal) INR 2.13 (Normal) PT 22.2 s (Abnormal) Range: 10.4-12.4 10:46 Routine Venipuncture Comments: Items in this order include: Draw Charge[i], Protime & INR (66694) Draw Drawn (Normal) 26-Nov-2012 Routine Venipuncture Comments: Items in this order include: Protime & INR, Draw Charge[i] 15:05 (39283) Draw Drawn (Normal) 15:05 PT (PROTHROMBIN TIME) Comments: Items in this order include: Protime & INR, Draw Charge[i]Does patient have a artifical heart valve? No ([facility]) (19835) 4. Saturday Dosage 5.0 Repeat mg (Normal) 3. Saturday Dosage 5.0 mg (Normal) 2. Saturday Dosage 7.5 mg (Normal) INR 1.34 (Normal) PT 14.4 s (Abnormal) Range: 10.4-12.4 30-Oct-2012 PT (PROTHROMBIN TIME) Comments: Items in this order include: Draw Charge[i], Protime & INRINR value > 3.0 given to BW by Froy Chávez patient have a artifical heart valve? No 10:38 ([facility]) (38378) 7. Saturday Dosage 7.5 mg (Normal) 6. [...] order include: Draw Charge[i], Protime & INR (78213) Draw Drawn (Normal) 11:33 BMP Comments: Items [...] Dose? 10/29/2012 8:00 PMDosage? 0.25 mg Daily (19400) DIG 1.64 ng/mL (Normal) Range: 0.90-2.00 14-Oct-2012 PSA (PROSTATE SPECIFIC Comments: A copy of this report will be faxed to: Bettie Pop in this order include: Draw Charge[i], Protime & INR, PSAPSA allowed more than once a year due to being a Diagonistic PSA not a screening PSA 10:25 ANTIGEN) (83833) PSA 8.11 ng/mL (Abnormal) Range: 0.00-4.00 10:25 PT (PROTHROMBIN TIME) Comments: PSA allowed more than once a year due to being a Diagonistic PSA not a screening PSACoumadin dosage=5,5,5,5,7.5 repeatDoes patient have a artifical heart valve? No ([facility]) (88112) 7. Saturday Dosage 7.5 mg (Normal) 6. [...] a Diagonistic PSA not a screening PSA (94498) Draw Drawn (Normal) 12-Sep-2012 PT (PROTHROMBIN TIME) Comments: Items in this order include: Draw Charge[i], Protime & INRDoes patient have a artifical heart valve? No 09:16 ([facility]) (96847) 6. Saturday Dosage Repeat mg (Normal) 5. Dosage 7.5 mg (Normal) 4. Saturday Dosage 5.0 mg (Normal) 3. Saturday Dosage 5.0 mg (Normal) 2. Saturday Dosage 5.0 mg (Normal) 1. Saturday Dosage 5.0 mg (Normal) INR 2.48 (Normal) PT 25.7 s (Abnormal) Range: 10.4-12.4 09:16 Routine Venipuncture Comments: Items in this order include: Draw Charge[i], Protime & INR (80374) Draw Drawn (Normal) 18-Aug-2012 PT (PROTHROMBIN TIME) Comments: Items in this order include: Protime & INRDoes patient have a artifical heart valve? No 11:44 ([facility]) (91055) 7. Saturday Dosage 5.0 mg (Normal) 6. [...] Days ago. Check by KB (HGB A1C) (91537) A1C 6.2 % (Normal) Range: 4.6-6.2 Comments: High risk of diabetes. 31-Jul-2012 PT (PROTHROMBIN TIME) Comments: Items in this order include: Draw Charge[i], Protime & INRINR value > 3.0 given to Estella by Duyen Buckleylynn patient have a artifical heart valve? No 13:32 ([facility]) (06241) 7. Saturday Dosage 5.0 mg (Normal) 6. [...] order include: Draw Charge[i], Protime & INR (09884) Draw Drawn (Normal) 23-Jun-2012 PSA (PROSTATE SPECIFIC Comments: A copy of this report will be faxed to: Bettie Pop in this order include: Draw Charge[i], Protime & INR, PSAPSA allowed more than once a year due to being a Diagonistic PSA not a screening PSA 15:50 ANTIGEN) (72595) PSA 8.05 ng/mL (Abnormal) Range: 0.00-4.00 15:50 PT (PROTHROMBIN TIME) Comments: A copy of this report will be faxed to: Bettie Pop in this order include: Draw Charge[i], Protime & INR , PSAPSA allowed more than once a year due to being a Diagonistic PSA not a screening ([facility]) (90627) PSADoes patient have a artifical heart valve? [...] a Diagonistic PSA not a screening PSA (58207) Draw Drawn (Normal) 13-May-2012 Draw Charge[i] Comments: [...] results to dr. hema pop 14:28 ANTIGEN) (07910) PSA 16.45 ng/mL (Abnormal) Range: 0.00-4.00 14:28 PT (PROTHROMBIN TIME) Comments: Coumadin Dosage=5,5,5,7.5 Repeat. Took 7.5 on 04-27-12. ([facility]) (21837) 5. Dosage 7.5 Repeat mg (Normal) 4. Saturday Dosage 5.0 mg (Normal) 3. Saturday Dosage 5.0 mg (Normal) 2. Saturday Dosage 5.0 mg (Normal) 1. Saturday Dosage 7.5 mg (Normal) INR 2.17 (Normal) PT 22.7 s (Abnormal) Range: 10.4-12.4 14:28 Routine Venipuncture (58593) Draw Drawn (Normal) 13-May-2012 PSA (PROSTATE SPECIFIC Comments: A copy of this report will be faxed to: Bettie Pop in this order include: PSA, Draw Charge[i]PSA allowed more than once a year due to being a Diagonistic PSA not a screening PSA 09:20 ANTIGEN) (40146) PSA 11.30 ng/mL (Abnormal) Range: 0.00-4.00 TSH (THYROID Comments: Items in this order include: TSH 16:40 STIMULATING HORMONE) (16178) TSH 1.36 uIU/ml (Normal) Range: 0.34-5.60 14:50 PT (PROTHROMBIN TIME) Comments: Items in this order include: Draw Charge[i], Basic Metabolic Panel, Hemoglobin A1C, Protime & INRLast Hbg A1C was ran 218 Days ago. Check by DL ([facility]) (42645) 5. Dosage Repeat mg (Normal) 4. Saturday [...] ran 218 Days ago. Check (HGB A1C) (10671) by DLplease draw enough blood so if [...] ran 218 Days ago. Check by DL (96103) Draw Drawn (Normal) DIGOXIN, DRUG ASSAY Comments: Items in this order include: CBC, Comprehensive Metabolic Panel, CKI, Digoxin, Draw Charge[i] 09:08 (81993) DIG 0.38 ng/mL (Abnormal) Range: 0.90-2.00 09:08 CK Comments: Items in this order include: CBC, Comprehensive Metabolic Panel, CKI, Digoxin, Draw Charge[i] CKI 143 U/L (Normal) Range: 39-308 09:08 CMP (73833) Comments: Items in this order include: CBC, [...] Metabolic Panel, CKI, Digoxin, Draw Charge[i] ONE! (31968) manual diff Not Indicated (Normal) mpv 6.84 [...] order include: Protime & INR, Draw Charge[i] (72598) Draw Drawn (Normal) 16:45 PT (PROTHROMBIN TIME) Comments: Items in this order include: Protime & INR, Draw Charge[i]Coumadin doasage=5,5,7.5 Repeat ([facility]) (49146) 7. Saturday Dosage 5.0 mg (Normal) 6. [...] order include: Draw Charge[i], PSA 11:11 ANTIGEN) (32751) PSA 6.92 ng/mL (Abnormal) Range: 0.00-4.00 11:11 Routine Venipuncture Comments: A copy of this report will be faxed to: Bettie Pop in this order include: Draw Charge[i], PSA (98151) Draw Drawn (Normal) 17-Oct-2011 Routine Venipuncture 10:18 (56098) Draw Drawn (Normal) 10:18 TESTOSTERONE, FREE, Comments: Items in this order include: Protime & INR, Draw Charge[i], TESTOSTERONE, FREE, BIOAVAILABLE, AND TOTAL, LC/MS/ MSTesting performed at: [place], [address] [facility] BIO[place]AIL[place], [place], [address], Assistant Office Manager: Michael Chávez [facility] TOTAL, LC/MS/MS ALBUMIN,SERUM [...] and benefits counseling. 10:18 PT (PROTHROMBIN TIME) ([facility]) (19153) 7. Saturday Dosage 5.0 mg (Normal) 6. [...] Panel, Hemoglobin A1C, Draw Charge[i] (HGB A1C) (57785) A1C 6.1 % (Normal) Range: 4.6-6.2 13:29 [...] (Normal) Range: 135-145 13:29 DIGOXIN, DRUG ASSAY (41894) DIG 0.85 ng/mL (Abnormal) Range: 0.90-2.00 07-Aug-2011 TESTOSTERONE, FREE, Comments: Items in this order include: TESTOSTERONE, FREE, BIOAVAILABLE, AND TOTAL, LC/MS/MSTesting performed at: [facility] [place], [address] [address], [place] , [address], [place] 12:53 WEAKLY BOUND AND TOTAL ratory Director: Michael Chávez MD.[facility] (27448) ALBUMIN,SERUM 4.4 g/dL (Normal) Range: 3.6-5.1 SEX [...] INR, Draw Charge[i]no change in coumadin dose ([facility]) (07337) 7. Saturday Dosage 7.5 mg (Normal) 6. [...] Panel, Protime & INR, Draw Charge[i] ([facility]) (99988) 7. Saturday Dosage 5.0 mg (Normal) 5. [...] Pop in this order include: PSA ANTIGEN) (41010) PSA 5.95 ng/mL (Abnormal) Range: 0.00-4.00 CBC-MALE- ORDER THIS Comments: Items in this order include : Hemoglobin A1C, Comprehensive Metabolic Panel, CBC 11:56 ONE! (46446) manual diff Not Indicated (Normal) mpv 7.65 [...] 6.24 10*3/uL (Normal) Range: 4.50-10.50 11:56 CMP (22754) Comments: Items in this order include: Hemoglobin [...] this order include: Digoxin, Draw Charge[i] 15:17 (58322) DIG 1.18 ng/mL (Normal) Range: 0.90-2.00 HEMOGLOBIN GLYCLATED Comments: Items in this order include: Hemoglobin A1C, Comprehensive Metabolic Panel, CBC 11:56 (HGB A1C) (74220) A1C 6.6 % (Abnormal) Range: 4.6-6.2 Comments: Consistent with diabetes. 13:48 PT (PROTHROMBIN TIME) Comments: change to coumadin 5mg x 2 day then 7.5mg x1 repeat the cycle; Items in this order include: Protime & INR, Draw Charge[i]cyclechange to coumadin 5mg x 2 day then 7.5mg x1 repeat the ([facility]) (48311) 6. Saturday Dosage 7.5 mg (Normal) 7. [...] & INR, PSA, Draw Charge[i] 09:43 ANTIGEN) (64388) PSA 5.84 ng/mL (Abnormal) Range: 0.00-4.00 09:43 PT (PROTHROMBIN TIME) Comments: no change in coumadin; no change in coumadin ([facility]) (53555) 7. Saturday Dosage 7.5 mg (Normal) 6. Saturday Dosage 5.0 mg (Normal) 5. Dosage 7.5 mg (Normal) 4. Saturday Dosage 5.0 mg (Normal) 3. Saturday Dosage 5.0 mg (Normal) 1. Saturday Dosage 5.0 mg (Normal) 2. Saturday Dosage 7.5 mg (Normal) INR 3.45 (Normal) PT 32.9 s (Abnormal) Range: 10.4-12.4 23-Nov-2010 PT (PROTHROMBIN TIME) 10:03 [place] [place] ([id number]) 6. Saturday Dosage 7.5 mg (Normal) 7. Saturday Dosage 5 mg (Normal) 1. Saturday Dosage 5 mg (Normal) 2. Saturday Dosage 7.5 mg (Normal) 3. Saturday Dosage 5 mg (Normal) 4. Saturday Dosage 7.5 mg (Normal) 5. Dosage 5 mg (Normal) INR 2.16 (Normal) PT 21.0 s (Abnormal) Range: 10.4-12.4 19-Oct-2010 PT (PROTHROMBIN TIME) 15:16 [place] [place] ([id number]) 6. Saturday Dosage 5 mg (Normal) 7. Saturday Dosage 7.5 mg (Normal) 3. Saturday Dosage 7.5 mg (Normal) 4. Saturday Dosage 5 mg (Normal) 5. Dosage 7.5 mg (Normal) 1. Saturday Dosage 7.5 mg (Normal) 2. Saturday Dosage 5 mg (Normal) INR 2.13 (Normal) PT 20.7 s (Abnormal) Range: 10.4-12.4 12-Sep-2010 PT (PROTHROMBIN TIME) 11:03 [place] [place] ([id number]) INR 2.57 (Normal) PT (PROTHROMBIN TIME) 24.8 s (Abnormal) Range: 11.5-13.5 22-Aug-2010 PT (PROTHROMBIN TIME) 13:41 ([facility] [place] ([id number]) 09-Aug-2010 PSA, MEDICARE ([id number]) Comments: please fax to dr hema pop 09:54 PSA (Medicare) 4.83 ng/mL (Abnormal) Range: 0 - 4 09:34 PT (PROTHROMBIN TIME) ([facility] [place] ([id number]) INR 2.68 (Normal) PT (PROTHROMBIN TIME) 25.8 s (Abnormal) Range: 11.5-13.5 27-Jun-2010 PT (PROTHROMBIN TIME) 08:38 ([facility]) (05770) 26-Jun-2010 PT (PROTHROMBIN TIME) 16:21 ([facility] [place] ([id number]) INR 1.89 (Normal) PT (PROTHROMBIN TIME) 18.4 s (Abnormal) Range: 11.5-13.5 Treatment Plan PT (PROTHROMBIN TIME) ([facility] [place] (63882); Ordered: 11/01/2015; Note: Verbal order from Dr. James HoffmanID PANEL (74796); Ordered: 11/01/2015; Note: Verbal order from Dr. James Poole (PROTHROMBIN TIME) ([facility] [place] ([id number]); Ordered: 10/03/2015CK; Ordered : 10/03/2015CMP (06697); Ordered: 10/03/2015; Note: Verbal order from Dr. James Davis (PROSTATE SPECIFIC ANTIGEN) (32381); Ordered: 09/08/2015Routine Venipuncture (19444); Ordered: 08/10/2015; Note: Verbal order from Dr. James Poole (PROTHROMBIN TIME) ([facility] ([id number]); Ordered: 08/10/2015; Note: Verbal order from Dr. James EarlyURIC ACID BLOOD (48320); Ordered: 08/10/2015HEMOGLOBIN GLYCLATED (HGB A1C) (22598); Ordered: 08/10/2015CK (73867); Ordered: 2014CMP (08872); Ordered: 08/10/2015CBC MALE- ORDER THIS ONE! 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 Early for left fourth finger pyogenic granuloma. He said he is having quite a bit of pain with the nodule and some occasional drainage. Seems to be recurrent for him. 09:10 to 09:52 [facility] Office Visit - PG (pyogenic granuloma) [...] nail problems": He continues with his usual medications.[facility] Lab entry only - Encounter for long-term (current) use of anticoagulants ( V58.61 | Z79.01) On 07-Jul-2015 [facility] 16:55 to 16:56 Office Visit - [...] the stairs and I have to crawl. [facility] Historical Summary On [facility] 12:33 to 12:36 Lab entry only - Encounter for long-term (current) use of anticoagulants ( V58.61 | Z79.01) On [facility] 17:37 to 17:39 Lab entry only - Elevated PSA (790.93) On [facility] 10:10 to 10:11 Lab entry only - Encounter for long-term (current) use of anticoagulants ( V58.61 | Z79.01), Encounter for long-term (current) use of anticoagulants ( V58.61 | Z79.01) On 14-Jan-2015 [facility] 14:52 to 14:53 Lab entry only - Encounter for long-term (current) use of anticoagulants ( V58.61 | Z79.01), Encounter for long-term (current) use of anticoagulants ( V58.61 | Z79.01) On 29-Nov-2014 [facility] 12:31 to 15:09 Medication Entry - Diabetes mellitus (250.00 | E11.9) On 12-Nov-2014 [facility] 11:46 to 11:53 Medication Entry - Cellulitis, leg (682.6 | L03.119) On 11-Nov-2014 [facility] 09:48 to 10:00 Office Visit - [...] "Transition into care": He feels things are improved.[facility] Historical Summary On 27-Oct-2014 [facility] 15:03 to 15:08 Lab entry only - Fibrillation, atrial (427.31), Encounter for long-term ( current) use of anticoagulants (V58.61 | Z79.01) On 18-Oct-2014 [facility] 17:08 to 17:09 Medication Entry - Gout (274.9 | M10.9) On 12-Oct-2014 [facility] 16:17 to 16:22 Lab entry only - Encounter for long-term (current) use of anticoagulants ( V58.61 | Z79.01) On 21-Sep-2014 [facility] 15:31 to 15:33 Radiology Visit - Carotid stenosis (433.10 | I65.29) On 14-Sep-2014 [facility] 09:33 to 09:36 Lab entry only - Encounter for long-term (current) use of anticoagulants ( V58.61 | Z79.01) On 24-Aug-2014 [facility] 16:31 to 16:34 Office Visit - Health education (V65.40 | Z71.9), Prevnar (PCV13)FOR MEDICARE USE ONLY Pneumovax injection (V03.82) 45923, Encounter for long-term ( current) use of [...] lifeline screening. He mentions the "discoloration" of ankles.[facility] Historical Summary On 11-Aug-2014 [facility] 16:16 to 16:19 Lab entry only - Fibrillation, atrial (427.31), Encounter for long-term ( current) use of anticoagulants (V58.61 | Z79.01) On 06-Aug-2014 [facility] 16:41 to 16:43 Medication Entry - Benign essential hypertension (401.1 | I10) On 21-Jun-2014 [facility] 11:12 to 11:14 Lab entry only - Encounter for long-term (current) use of anticoagulants ( V58.61 | Z79.01) On 03-Jun-2014 [facility] 16:13 to 16:15 Lab entry only - Encounter for long-term (current) use of anticoagulants ( V58.61 | Z79.01) On [facility] 13:22 to 13:23 Lab entry only - Elevated PSA (790.93), Encounter for long-term (current) use of anticoagulants (V58.61 | Z79.01) On [facility] 14:27 to 14:28 Office Visit - [...] thing in the morning and on stairs. [facility] Historical Summary On 28-Dec-2013 [facility] 12:26 to 12:29 Medication Entry - Encounter for long-term (current) use of anticoagulants ( V58.61 | Z79.01), Diabetes mellitus (250.00 | E11.9), Fibrillation, atrial ( 427.31) On 03-Nov-2013 [facility] 09:01 to 11:53 Medication Entry - Fibrillation, atrial (427.31), Diabetes mellitus (250.00 | E11.9) On 30-Oct-2013 [facility] 15:55 to 16:00 Lab entry only - Encounter for long-term (current) use of anticoagulants ( V58.61 | Z79.01) On 27-Oct-2013 [facility] 17:57 to 17:59 Office Visit - [...] M.D. after being in the hospital at [facility] on 10/16/13 & discharged on 10/17/13 dx jasmeet diaz, inr was done prior to visit.) . Note for "Transition into care": He passed a kidney stone a week ago.[facility] Historical Summary On 23-Oct-2013 [facility] 14:42 to 14:45 Lab entry only - Encounter for long-term (current) use of anticoagulants ( V58.61 | Z79.01) On 20-Oct-2013 [facility] 16:31 to 16:33 Lab entry only - Encounter for long-term (current) use of anticoagulants ( V58.61 | Z79.01) On 16-Sep-2013 [facility] 10:14 to 10:15 Lab entry only - Elevated PSA (790.93) On 15-Sep-2013 [facility] 11:11 to 11:12 Lab entry only - Encounter for long-term (current) use of anticoagulants ( V58.61 | Z79.01) On 07-Aug-2013 [facility] 14:32 to 14:33 Lab entry only - Benign essential hypertension (401.1 | I10), Diabetes mellitus (250.00 | E11.9) On 07-Aug-2013 [facility] 11:18 to 11:19 Lab entry only - Encounter for long-term (current) use of anticoagulants ( V58.61 | Z79.01) On 01-May-2013 [facility] 10:33 to 10:38 Office Visit - [...] He did miss some meds while he traveled.[facility] Historical Summary On 29-Apr-2013 [facility] 11:46 to 11:49 Lab entry only - Encounter for long-term (current) use of anticoagulants ( V58.61 | Z79.01) On [facility] 16:39 to 16:42 Lab entry only - Encounter for long-term (current) use of anticoagulants ( V58.61 | Z79.01) On [facility] 19:40 to 19:42 Lab entry only - Elevated PSA (790.93) On [facility] 12:03 to 12:07 Office Visit - [...] for "Cough": He has not had an antibiotic.[facility] Lab entry only - Encounter for long-term (current) use of anticoagulants ( V58.61 | Z79.01) On 16-Dec-2012 [facility] 18:21 to 18:23 Lab entry only - Encounter for long-term (current) use of anticoagulants ( V58.61 | Z79.01) On 27-Nov-2012 [facility] 16:52 to 16:53 Lab entry only - Encounter for long-term (current) use of anticoagulants ( V58.61) On 26-Nov-2012 [facility] 15:04 to 15:05 Office Visit - [...] first thing in the morning and on stairs.[facility] Historical Summary On 29-Oct-2012 [facility] 16:15 to 16:17 Lab entry only - Encounter for long-term (current) use of anticoagulants ( V58.61) On 15-Oct-2012 [facility] 09:51 to 09:57 Lab entry only - Encounter for long-term (current) use of anticoagulants ( V58.61), Elevated PSA (790.93) On 14-Oct-2012 [facility] 10:25 to 10:26 Lab entry only - Encounter for long-term (current) use of anticoagulants ( V58.61) On 12-Sep-2012 [facility] 13:44 to 13:45 Medication Entry - Edema (782.3), Fibrillation, atrial (427.31) On 20-Aug-2012 [facility] 11:10 to 11:12 Medication Entry - Fibrillation, atrial (427.31), Edema (782.3) On 19-Aug-2012 [facility] 17:29 to 18:11 Medication Entry - Encounter for long-term (current) use of anticoagulants ( V58.61), Fibrillation, atrial (427.31), Diabetes mellitus (250.00) On 2011 [facility] 17:44 to 17:53 Office Visit - 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), Inflamed seborrheic keratosis (702.11), Hyperglycemia (790.29), Encounter for long-term (current) use of anticoagulants (V58.61), Fibrillation, atrial (427.31) On 01-Aug-2012 Encounter Reason: Follow up for chronic condition - The patient feels well with minor complaints (here today for a 3 month follow up with Dr. Early ) .[facility] 09:34 to 10:39 Medication Entry - Encounter for long-term (current) use of anticoagulants ( V58.61) On 31-Jul-2012 [facility] 18:21 to 18:22 Historical Summary On 31-Jul-2012 [facility] 11:40 to 11:42 Lab entry only - Encounter for long-term (current) use of anticoagulants ( V58.61) On 23-Jun-2012 [facility] 18:47 to 18:52 Lab entry only - Elevated PSA (790.93), Encounter for long-term (current) use of anticoagulants (V58.61) On 23-Jun-2012 [facility] 15:48 to 15:53 Office Visit - Adjustment disorder with depressed mood (309.0), Encounter for long-term (current) use of anticoagulants (V58.61), Elevated PSA (790.93) On Encounter Reason: Follow up for chronic condition - The patient feels well with minor complaints (here for a 6 week follow up visit do to a new medication but did not start the medication).[facility] 11:19 to 13: 39 Historical Summary On 30-Apr-2012 [facility] 11:50 to 11:52 Lab entry only - Encounter for long-term (current) use of anticoagulants ( V58.61) On 28-Apr-2012 [facility] 17:23 to 17:26 Lab entry only - Elevated PSA (790.93), Encounter for long-term (current) use of anticoagulants (V58.61) On 28-Apr-2012 [facility] 14:19 to 14:22 Office Visit - [...] 6 month follow up appt. with dr. early , had lab done prior to appt today).[facility] Lab entry only - Edema (782.3), Hyperglycemia (790.29), Encounter for long- term (current) use of anticoagulants (V58.61) On [facility] 11:06 to 11:14 Lab entry only - Elevated PSA (790.93), Fibrillation, atrial (427.31), Edema ( 782.3) On [facility] 09:02 to 09:05 Lab entry only - Encounter for long-term (current) use of anticoagulants ( V58.61) On [facility] 16:44 to 16:45 Medication Entry On 26-Oct-2011 [facility] 13:30 to 13:32 Lab entry only - Elevated PSA (790.93) On 23-Oct-2011 [facility] 11:01 to 11:04 Lab entry only - Encounter for long-term (current) use of anticoagulants ( V58.61), Low testosterone (257.2) On 17-Oct-2011 [facility] 10:15 to 10:17 Medication Entry - Fibrillation, atrial (427.31) On 04-Oct-2011 [facility] 09:26 to 09:38 Medication Entry - Fibrillation, atrial (427.31), Edema (782.3), Encounter for long-term (current) use of anticoagulants (V58.61), Benign prostatic hypertrophy without lower urinary tract symptoms (LUTS) (600.00) On 02-Oct-2011 [facility] 18:56 to 19:02 Medication Entry - Encounter for long-term (current) use of anticoagulants ( V58.61), Fibrillation, atrial (427.31), Edema (782.3) On 26-Sep-2011 [facility] 11:06 to 11:11 Medication Entry - Fibrillation, atrial (427.31), Encounter for long-term ( current) use of anticoagulants (V58.61) On 24-Sep-2011 [facility] 10:41 to 10:49 Lab entry only - Low testosterone (257.2) On 10-Aug-2011 [facility] 13:03 to 13:05 Lab entry only - Hyperglycemia (790.29), Encounter for long-term (current) use of anticoagulants (V58.61), Fibrillation, atrial (427.31) On 08-Aug-2011 [facility] 13:27 to 13:29 Office Visit - [...] he 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." [facility] Historical Summary On 06-Aug-2011 [facility] 12:22 to 12:24 Medication Entry - Fibrillation, atrial (427.31) On 05-Jun-2011 [facility] 08:54 to 08:59 Lab entry only - Encounter for long-term (current) use of anticoagulants ( V58.61) On 15-May-2011 [facility] 18:48 to 18:50 Office Visit - [...] up is diabetes, hypertension, cardiovascular disorder and other.[facility] Medication Entry - Benign prostatic hypertrophy without lower urinary tract symptoms (LUTS) (600.00) On 19-Apr-2011 [facility] 08:49 to 08:51 Lab entry only - Benign prostatic hypertrophy without lower urinary tract symptoms (LUTS) (600.00) On 10-Apr-2011 [facility] 15:15 to 15:19 Office Visit - [...] [facility] had [facility]r drawn today prior o appt 1. regarding my urine about every fourth day states I'am incontent the first thing in the morning has finished antibotic x [address] pop plans on seeing dr. pop the middle of apr.). [facility] Historical Summary On [facility] 16:05 to 16:18 Lab entry only - Encounter for long-term (current) use of anticoagulants ( V58.61) On [facility] 17:34 to 17:36 Lab entry only - Encounter for long-term (current) use of anticoagulants ( V58.61), Elevated PSA (790.93) On [facility] 09:42 to 09:43 Lab entry only - Encounter for long-term (current) use of anticoagulants ( V58.61) On 24-Nov-2010 [facility] 08:55 to 08:57 Lab entry only - Encounter for long-term (current) use of anticoagulants ( V58.61) On 20-Oct-2010 [facility] 14:42 to 14:46 Historical Summary - Encounter for long-term (current) use of anticoagulants ( V58.61) On 13-Sep-2010 [facility] 10:53 to 10:59 Historical Summary 12-Sep-2010 to 13-Sep-2010 [facility] Lab entry only - Encounter for long-term (current) use of anticoagulants ( V58.61) On 14-Aug-2010 [facility] 17:44 to 17:49 Historical Summary - Elevated PSA (790.93) 09-Aug-2010 to 15-Aug-2010 [facility] Lab entry only - Encounter for long-term (current) use of anticoagulants ( V58.61) 27-Jun-2010 to 28-Jun-2010 [facility] Lab entry only - Encounter for long-term (current) use of anticoagulants ( V58.61) On 26-Jun-2010 [facility] 16:21 to 22:23 Insurance Vijay Yuan; a guarantorMedicare [employer] [facility] [employer]
--- OUTSIDE RECORDS SUMMARY | 2017-10-22 17:47 | External Medical Summary | Continuity of Care Document ---
:1940 Author Organization [facility] Address [address] [place] [address] Phone Care Team Providers Name Role Phone [...] Comments:started on 10/17/13 after being dismissed from [facility] for kidney stone by gale CITALOPRAM [...] dx kidney stone from being discharged from [facility] PROMETHAZINE-DM, 6.25-15MG/5ML (Oral Syrup) 1-2 tsp [...] BL DRAW < 3 YRS Ordered:28-Oct-2015 FEM/JUGULAR ([id number]) Follow up in 6 months Ordered:27-Oct-2015 How to access health information Completed:27-Jul-2015 online Skin Conditions Completed:27-Jul-2015 Follow up in 2 weeks Ordered:27-Jul-2015 HIGH DOSE QUADRIVALENT INFLUENZA Ordered:25-Jul-2015 VACCINE ([id number]) ADMINISTRATION OF INFLUENZA VIRUS Ordered:25-Jul-2015 VACCINE (G0008) Follow up in 3 months Ordered:25-Jul-2015 Follow up in 4 months Ordered: X-RAY EXAM OF KNEE, 1 OR 2 VIEWS Completed: Comments: right (94530) X-RAY EXAM OF BOTH KNEES, Completed: STANDING (53294) How to access health information Completed: online Follow up - Keep appt as scheduled Ordered:28-Oct-2014 CAROTID BILATERAL US (48829) Completed:14-Sep-2014 Comments: Verbal order from Dr. James Romero Follow up in 6 months Ordered:12-Aug-2014 PREVNAR 13 VALENT PNEUMOCOCCAL Completed:12-Aug-2014 VACCINE (30942) ADMINISTRATION OF PNEUMOCOCCAL Ordered:12-Aug-2014 CONJUGATE VACCINE (G0009) How to access health information Completed:12-Aug-2014 online Follow up in 6 months Ordered: Follow up in 2 months Ordered:26-Oct-2013 ADMIN INFLUENZA VIRUS VAC: FLU VACC Completed:26-Oct-2013 PRSV FREE INC ANTIG (50634) ADMINISTRATION OF INFLUENZA VIRUS Ordered:26-Oct-2013 VACCINE (G0008) Follow up in 6 months Ordered:30-Apr-2013 Follow up - Keep appt as scheduled Ordered:02-Jan-2013 Follow up in 6 months Ordered:30-Oct-2012 Follow up in 3 months Ordered:01-Aug-2012 Follow up in 3 months Ordered:01-May-2012 Follow up in 6 weeks Ordered: ADMINISTRATION OF INFLUENZA VIRUS Ordered:14-May-2011 VACCINE (G0008) FLU VACC PRSV FREE INC ANTIG Completed:14-May-2011 (62030) Follow up in 2 months Ordered:14-May-2011 Follow up in 2 months Ordered: Annual Eye Exam Completed:22-Nov-2008 Colonoscopy, Screening Completed: Colonoscopy, Screening Completed:06-Oct-2014 Flu Vaccine Completed:26-Oct-2013 Flu Vaccine Completed:06-Jun-2012 Comments: [facility] Flu Vaccine Completed:14-May-2011 Comments: high [...] Site: Deltoid (Left); high dose Lot #: [id number] Influenza, preserv. free, enhanced immunogncty, IM Administered on:2013 Comments: Site: Deltoid (Left) Lot #: [id number] Pneumococcal conjugate vaccine, 13 valent, IM Administered on:12-Aug-2014 Comments: Site: Deltoid (Left) Lot #: [id number] Social History Name Dates Details Tobacco use: [...] Comments: The left neck Final 10:36 SINGLE (12755) lesion was removed and also the left [...] not sent to pathology. 10:35 PUNCH BIOPSY (86419) Comments: After Final FIRST BIOPSY cleansing the [...] heart valve? No ([facility]) (19473) 9. Saturday Dosage Repeat mg (Normal) 8. [...] Charge[i], Protime & INR, PSA 16:21 ANTIGEN) (61947) PSA 6.00 ng/mL (Abnormal) Range: 0.00-4.00 16:21 PT (PROTHROMBIN TIME) Comments: Does patient have a artifical heart valve? No ([facility]) (50609) 8. Joao Dosage 5.0 mg (Normal) 9. Saturday Dosage 7.5 mg (Normal) 6. Saturday Dosage 7.5 mg (Normal) 7. Dosage 7.5 mg (Normal) 5. Saturday Dosage 5.0 mg (Normal) 4. Saturday Dosage 7.5 mg (Normal) 3. Saturday Dosage 7.5 mg (Normal) INR 2.21 (Normal) PT 24.2 s (Abnormal) Range: 9.3-11.7 16:21 Routine Venipuncture (47641) Draw Drawn (Normal) 25-Oct-2015 URIC ACID BLOOD (42287) Comments: Items in this order include : CBC, Comprehensive Metabolic Panel, CKI, Hemoglobin A1C, Uric Acid, Draw Charge[i] 11:21 Uric Acid 5.5 mg/dL (Normal) Range: 3.5-7.2 11:21 HEMOGLOBIN GLYCLATED (HGB A1C) (62186) A1C 6.2 % (Normal) Range: 4.6-6.2 Comments: High risk of diabetes. 11:21 CK (75346) Comments: Items in this order include: CBC, Comprehensive Metabolic Panel, CKI, Hemoglobin A1C, Uric Acid, Draw Charge[i] CKI 288 U/L (Normal) Range: 39-308 11:21 CMP (24681) Comments: Items in this order include: CBC, [...] 135-145 11:21 CBC MALE- ORDER THIS ONE! (86372) manual diff Not Indicated (Normal) mpv 9.80 [...] have a artifical heart valve? No 15:06 ([facility]) (87496) 9. Saturday Dosage 7.5 mg (Normal) 8. [...] order include: Draw Charge[i], Protime & INR (68574) Draw Drawn (Normal) [facility] (56026) Comments: Items in this order include: Basic [...] include: A COPY TO [eliana, PSA ANTIGEN) (05955) PSA 6.55 ng/mL (Abnormal) Range: 0.00-4.00 09:[address] Boswell Comments: A copy of this report will be faxed to: Bettie Boswell in this order include: A COPY TO DR.[i] PSA Ordering Doctor . (Normal) 09:15 PT (PROTHROMBIN TIME) Comments: Items in this order include: Draw Charge[i], Protime & INRDoes patient have a artifical heart valve? No ([facility]) (97014) 8. Saturday Dosage 7.5 mg (Normal) 9. [...] order include: Draw Charge[i], Protime & INR (18037) Draw Drawn (Normal) 14-Jan-2015 PT (PROTHROMBIN TIME) Comments: Items in this order include: Draw Charge[i], Protime & INRDoes patient have a artifical heart valve? No 09:28 ([facility]) (96924) 9. Saturday Dosage 5.0 mg (Normal) 7. [...] order include: Draw Charge[i], Protime & INR (28533) Draw Drawn (Normal) 28-Oct-2014 PT (PROTHROMBIN TIME) Comments: Items in this order include: Draw Charge[i], Protime & INRDoes patient have a artifical heart valve? No 10:48 ([facility]) (72241) 9. Saturday Dosage 7.5 mg (Normal) 8. [...] order include: Draw Charge[i], Protime & INR (66846) Draw Drawn (Normal) 29-Nov-2014 PT (PROTHROMBIN TIME) Comments: Items in this order include: Draw Charge[i], Protime & INRDoes patient have a artifical heart valve? No 10:28 ([facility]) (32342) 9. Saturday Dosage 5.0 mg (Normal) 8. [...] order include: Draw Charge[i], Protime & INR (85470) Draw Drawn (Normal) 21-Sep-2014 PT (PROTHROMBIN TIME) Comments: Items in this order include: Draw Charge[i], Protime & INRDoes patient have a artifical heart valve? No 10:08 ([facility]) (18196) 9. Saturday Dosage 5.0 mg (Normal) 7. [...] order include: Draw Charge[i], Protime & INR (94840) Draw Drawn (Normal) 24-Aug-2014 Routine Venipuncture Comments: Items in this order include: Protime & INR, Draw Charge[i] 09:59 (39827) Draw Drawn (Normal) 09:59 PT (PROTHROMBIN TIME) Comments: Items in this order include: Protime & INR, Draw Charge[i]INR value > 3.0 given to Estella by Beny Buckley patient have a artifical heart valve? No ([facility]) (52659) 9. Saturday Dosage 7.5 mg (Normal) 7. [...] Panel, Hemoglobin A1C, Urine Microalbumin, CBC ONE! (90523) manual diff Not Indicated (Normal) mpv 9.60 [...] Metabolic Panel, Hemoglobin A1C, Urine Microalbumin, CBC (58095) U A:C RATIO <30 mg/g Normal Range: <30 mg/g Normal (Normal) U CREAT 200 mg/dL (Normal) Range: 10-300 U ALB 80 mg/L (Abnormal) Range: 10 mg/L 09:59 HEMOGLOBIN GLYCLATED Comments: Items in this order include: Digoxin , PSA, Basic Metabolic Panel, Hemoglobin A1C, Urine Microalbumin, CBC (HGB A1C) (45019) A1C 5.9 % (Normal) Range: 4.6-6.2 Comments: Increased risk of diabetes. 09:59 [facility] (39226) Comments: Items in this order include: Digoxin, [...] Panel, Hemoglobin A1C, Urine Microalbumin, CBC ANTIGEN) (23569) PSA 7.11 ng/mL (Abnormal) Range: 0.00-4.00 09:59 DIGOXIN (40749) Comments: Items in this order include: Digoxin, PSA , Basic Metabolic Panel, Hemoglobin A1C, Urine Microalbumin, CBCTime of Last Dose? 08/23/2014 8:00 AMDosage? 0.25 DIG 0.36 ng/mL (Abnormal) Range: 0.90-2.00 05-Aug-2014 PT (PROTHROMBIN TIME) Comments: Items in this order include: Draw Charge[i], Protime & INRDoes patient have a artifical heart valve? No 10:48 ([facility]) (30585) 8. Saturday Dosage 7.5 mg (Normal) 9. [...] order include: Draw Charge[i], Protime & INR (65159) Draw Drawn (Normal) 03-Jun-2014 PT (PROTHROMBIN TIME) Comments: Items in this order include: Draw Charge[i], Protime & INRDoes patient have a artifical heart valve? No 13:56 ([facility]) (35943) 9. Saturday Dosage 7.5 mg (Normal) 8. [...] order include: Draw Charge[i], Protime & INR (12960) Draw Drawn (Normal) PT (PROTHROMBIN TIME) Comments: Items in this order include: Protime & INRDoes patient have a artifical heart valve? No 14:25 ([facility]) (44937) 9. Saturday Dosage 5.0 mg (Normal) 8. [...] this order include: Draw Charge[i], PSA ANTIGEN) (28399) PSA 6.15 ng/mL (Abnormal) Range: 0.00-4.00 14:25 Routine Venipuncture Comments: A copy of this report will be faxed to: Bettie Boswell in this order include: Draw Charge[i], PSA (37933) Draw Drawn (Normal) HEMOGLOBIN GLYCLATED Comments: Items in this order include: Hemoglobin A1C, Draw Charge[i], Comprehensive Metabolic Panel, Uric Acid 15:06 (HGB A1C) (11785) A1C 5.7 % (Normal) Range: 4.6-6.2 15:06 CMP (24603) Comments: Items in this order include: Hemoglobin [...] (Normal) Range: 135-145 15:06 URIC ACID BLOOD (06300) Comments: Items in this order include: Hemoglobin A1C, Draw Charge[i], Comprehensive Metabolic Panel, Uric Acid Uric Acid 8.0 mg/dL (Abnormal) Range: 3.6-7.7 15:06 Routine Venipuncture Comments: Items in this order include: Hemoglobin A1C, Draw Charge[i], Comprehensive Metabolic Panel, Uric Acid (68805) Draw Drawn (Normal) -January-2014 PT (PROTHROMBIN TIME) Comments: Items in this order include: Draw Charge[i], Protime & INRDoes patient have a artifical heart valve? No 14:27 ([facility]) (78533) 8. Saturday Dosage 5.0 mg (Normal) 9. [...] order include: Draw Charge[i], Protime & INR (07696) Draw Drawn (Normal) 26-Oct-2013 Draw Charge[i] Comments: Items in this order include: Basic Metabolic Panel, Draw Charge[i] 17:08 Draw Drawn (Normal) 17:05 [facility] (37964) Comments: Items in this order include: Basic [...] heart valve? No ([facility]) (72906) 9. Saturday Dosage 5.0 mg (Normal) 7. [...] order include: Draw Charge[i], Protime & INR (05916) Draw Drawn (Normal) 15-Sep-2013 PSA (PROSTATE SPECIFIC Comments: A copy of this report will be faxed to: Bettie Boswell in this order include: A COPY TO [kyung] PSAPSA allowed more than once a year due to being a Diagonistic PSA not a screening PSA 11:05 ANTIGEN) (56571) PSA 5.40 ng/mL (Abnormal) Range: 0.00-4.00 11:05 [...] this order include: Comprehensive Metabolic Panel, Hemoglobin O1FVpcb Hgb A1C was ran 99 Days ago. Check by MARGARITA 10:38 (HGB A1C) (06877) A1C 5.9 % (Normal) Range: 4.6-6.2 Comments: Increased risk of diabetes. 10:38 [facility] (13368) Comments: Items in this order include: Comprehensive Metabolic Panel, Hemoglobin C2TCapm Hgb A1C was ran 99 Days ago. [...] heart valve? No ([facility]) (42904) 9. Saturday Dosage 5.0 (cycle of 5,5,7.5 [...] order include: Draw Charge[i], Protime & INR (60101) Draw Drawn (Normal) 10:38 DIGOXIN (34522) Comments: Items in this order include: DigoxinTime of Last Dose? 08/06/2013 8:30 AMDosage? 0.25 mg daily DIG 0.48 ng/mL (Abnormal) Range: 0.90-2.00 30-Apr-2013 HEMOGLOBIN GLYCLATED Comments: Items in this order include: Comprehensive Metabolic Panel, CBC, Hemoglobin [id number] Hgb A1C was ran 225 Days ago. Check by ms 11:58 (HGB A1C) (82003) A1C 6.1 % (Normal) Range: 4.6-6.2 11:58 CBC MALE- ORDER THIS Comments: Items in this order include: Comprehensive Metabolic Panel, CBC, Hemoglobin [id number] Hgb A1C was ran 225 Days ago. Check by ms ONE! (92355) manual diff Not Indicated (Normal) mpv 4.88 [...] 6.15 10*3/uL (Normal) Range: 4.50-10.50 11:58 CMP (02699) Comments: Items in this order include: Comprehensive Metabolic Panel, CBC, Hemoglobin [id number] Hgb A1C was ran 225 Days ago. [...] heart valve? No ([facility]) (13675) 4. Saturday Dosage Repeat mg (Normal) 3. Saturday Dosage 7.5 mg (Normal) 2. Saturday Dosage 5.0 mg (Normal) 1. Saturday Dosage 5.0 mg (Normal) INR 2.60 (Normal) PT 26.8 s (Abnormal) Range: 10.4-12.4 PT (PROTHROMBIN TIME) Comments: Items in this order include: Draw Charge[i], Protime & INRDoes patient have a artifical heart valve? No 15:12 ([facility]) (26254) 5. Dosage Repeat mg (Normal) 4. Saturday Dosage 5.0 mg (Normal) 3. Saturday Dosage 5.0 mg (Normal) 2. Saturday Dosage 7.5 mg (Normal) INR 2.31 (Normal) PT 24.0 s (Abnormal) Range: 10.4-12.4 15:12 Routine Venipuncture Comments: Items in this order include: Draw Charge[i], Protime & INR (26615) Draw Drawn (Normal) PSA (PROSTATE SPECIFIC Comments: A copy of this report will be faxed to: Bettie Boswell in this order include: PSA, Draw Charge[i]PSA allowed more than once a year due to being a Diagonistic PSA not a screening PSA 10:00 ANTIGEN) (49847) PSA 5.60 ng/mL (Abnormal) Range: 0.00-4.00 10:00 [...] heart valve? No ([facility]) (67752) 3. Saturday Dosage Repeat mg (Normal) 2. Saturday Dosage 7.5 mg (Normal) 1. Saturday Dosage 5.0 mg (Normal) INR 2.64 (Normal) PT 27.2 s (Abnormal) Range: 10.4-12.4 10:09 Routine Venipuncture Comments: Items in this order include: Draw Charge[i], Protime & INR (06785) Draw Drawn (Normal) 16-Apr-2013 PT (PROTHROMBIN TIME) Comments: Items in this order include: Draw Charge[i], Protime & INRDoes patient have a artifical heart valve? No 10:46 ([facility]) (55315) 4. Saturday Dosage Repeat mg (Normal) 3. Saturday Dosage 5.0 mg (Normal) 2. Saturday Dosage 7.5 mg (Normal) INR 2.13 (Normal) PT 22.2 s (Abnormal) Range: 10.4-12.4 10:46 Routine Venipuncture Comments: Items in this order include: Draw Charge[i], Protime & INR (68259) Draw Drawn (Normal) 26-Nov-2012 Routine Venipuncture Comments: Items in this order include: Protime & INR, Draw Charge[i] 15:05 (02844) Draw Drawn (Normal) 15:05 PT (PROTHROMBIN TIME) Comments: Items in this order include: Protime & INR, Draw Charge[i]Does patient have a artifical heart valve? No ([facility]) (75697) 4. Saturday Dosage 5.0 Repeat mg (Normal) 3. Saturday Dosage 5.0 mg (Normal) 2. Saturday Dosage 7.5 mg (Normal) INR 1.34 (Normal) PT 14.4 s (Abnormal) Range: 10.4-12.4 30-Oct-2012 PT (PROTHROMBIN TIME) Comments: Items in this order include: Draw Charge[i], Protime & INRINR value > 3.0 given to BW by Froy Chávez patient have a artifical heart valve? No 10:38 ([facility]) (54515) 7. Saturday Dosage 7.5 mg (Normal) 6. [...] order include: Draw Charge[i], Protime & INR (04302) Draw Drawn (Normal) 11:33 BMP Comments: Items [...] Dose? 10/29/2012 8:00 PMDosage? 0.25 mg Daily (71625) DIG 1.64 ng/mL (Normal) Range: 0.90-2.00 14-Oct-2012 PSA (PROSTATE SPECIFIC Comments: A copy of this report will be faxed to: Bettie Boswell in this order include: Draw Charge[i], Protime & INR, PSAPSA allowed more than once a year due to being a Diagonistic PSA not a screening PSA 10:25 ANTIGEN) (75677) PSA 8.11 ng/mL (Abnormal) Range: 0.00-4.00 10:25 PT (PROTHROMBIN TIME) Comments: PSA allowed more than once a year due to being a Diagonistic PSA not a screening PSACoumadin dosage=5,5,5,5,7.5 repeatDoes patient have a artifical heart valve? No ([facility]) (55858) 7. Saturday Dosage 7.5 mg (Normal) 6. [...] a Diagonistic PSA not a screening PSA (94576) Draw Drawn (Normal) 12-Sep-2012 PT (PROTHROMBIN TIME) Comments: Items in this order include: Draw Charge[i], Protime & INRDoes patient have a artifical heart valve? No 09:16 ([facility]) (79080) 6. Saturday Dosage Repeat mg (Normal) 5. Dosage 7.5 mg (Normal) 4. Saturday Dosage 5.0 mg (Normal) 3. Saturday Dosage 5.0 mg (Normal) 2. Saturday Dosage 5.0 mg (Normal) 1. Saturday Dosage 5.0 mg (Normal) INR 2.48 (Normal) PT 25.7 s (Abnormal) Range: 10.4-12.4 09:16 Routine Venipuncture Comments: Items in this order include: Draw Charge[i], Protime & INR (41439) Draw Drawn (Normal) 18-Aug-2012 PT (PROTHROMBIN TIME) Comments: Items in this order include: Protime & INRDoes patient have a artifical heart valve? No 11:44 ([facility]) (77852) 7. Saturday Dosage 5.0 mg (Normal) 6. [...] Days ago. Check by KB (HGB A1C) (40638) A1C 6.2 % (Normal) Range: 4.6-6.2 Comments: High risk of diabetes. 31-Jul-2012 PT (PROTHROMBIN TIME) Comments: Items in this order include: Draw Charge[i], Protime & INRINR value > 3.0 given to Estella by Beny Buckley patient have a artifical heart valve? No 13:32 ([facility]) (85242) 7. Saturday Dosage 5.0 mg (Normal) 6. [...] order include: Draw Charge[i], Protime & INR (85873) Draw Drawn (Normal) 23-Jun-2012 PSA (PROSTATE SPECIFIC Comments: A copy of this report will be faxed to: Bettie Boswell in this order include: Draw Charge[i], Protime & INR, PSAPSA allowed more than once a year due to being a Diagonistic PSA not a screening PSA 15:50 ANTIGEN) (16053) PSA 8.05 ng/mL (Abnormal) Range: 0.00-4.00 15:50 PT (PROTHROMBIN TIME) Comments: A copy of this report will be faxed to: Bettie Boswell in this order include: Draw Charge[i], Protime & INR , PSAPSA allowed more than once a year due to being a Diagonistic PSA not a screening ([facility]) (07871) PSADoes patient have a artifical heart valve? [...] a Diagonistic PSA not a screening PSA (00452) Draw Drawn (Normal) 13-May-2012 Draw Charge[i] Comments: [...] results to dr. hema boswell 14:28 ANTIGEN) (85675) PSA 16.45 ng/mL (Abnormal) Range: 0.00-4.00 14:28 PT (PROTHROMBIN TIME) Comments: Coumadin Dosage=5,5,5,7.5 Repeat. Took 7.5 on 04-27-12. ([facility]) (67762) 5. Dosage 7.5 Repeat mg (Normal) 4. Saturday Dosage 5.0 mg (Normal) 3. Saturday Dosage 5.0 mg (Normal) 2. Saturday Dosage 5.0 mg (Normal) 1. Saturday Dosage 7.5 mg (Normal) INR 2.17 (Normal) PT 22.7 s (Abnormal) Range: 10.4-12.4 14:28 Routine Venipuncture (78418) Draw Drawn (Normal) 13-May-2012 PSA (PROSTATE SPECIFIC Comments: A copy of this report will be faxed to: Bettie Boswell in this order include: PSA, Draw Charge[i]PSA allowed more than once a year due to being a Diagonistic PSA not a screening PSA 09:20 ANTIGEN) (84630) PSA 11.30 ng/mL (Abnormal) Range: 0.00-4.00 TSH (THYROID Comments: Items in this order include: TSH 16:40 STIMULATING HORMONE) (57043) TSH 1.36 uIU/ml (Normal) Range: 0.34-5.60 14:50 PT (PROTHROMBIN TIME) Comments: Items in this order include: Draw Charge[i], Basic Metabolic Panel, Hemoglobin A1C, Protime & INRLast Hbg A1C was ran 218 Days ago. Check by DL ([facility]) (11782) 5. Dosage Repeat mg (Normal) 4. Saturday [...] ran 218 Days ago. Check (HGB A1C) (45399) by DLplease draw enough blood so if [...] ran 218 Days ago. Check by DL (73446) Draw Drawn (Normal) DIGOXIN, DRUG ASSAY Comments: Items in this order include: CBC, Comprehensive Metabolic Panel, CKI, Digoxin, Draw Charge[i] 09:08 (63543) DIG 0.38 ng/mL (Abnormal) Range: 0.90-2.00 09:08 CK Comments: Items in this order include: CBC, Comprehensive Metabolic Panel, CKI, Digoxin, Draw Charge[i] CKI 143 U/L (Normal) Range: 39-308 09:08 CMP (74853) Comments: Items in this order include: CBC, [...] Metabolic Panel, CKI, Digoxin, Draw Charge[i] ONE! (12289) manual diff Not Indicated (Normal) mpv 6.84 [...] order include: Protime & INR, Draw Charge[i] (12765) Draw Drawn (Normal) 16:45 PT (PROTHROMBIN TIME) Comments: Items in this order include: Protime & INR, Draw Charge[i]Coumadin doasage=5,5,7.5 Repeat ([facility]) (52075) 7. Saturday Dosage 5.0 mg (Normal) 6. [...] order include: Draw Charge[i], PSA 11:11 ANTIGEN) (90574) PSA 6.92 ng/mL (Abnormal) Range: 0.00-4.00 11:11 Routine Venipuncture Comments: A copy of this report will be faxed to: Bettie Boswell in this order include: Draw Charge[i], PSA (27663) Draw Drawn (Normal) 17-Oct-2011 Routine Venipuncture 10:18 (89584) Draw Drawn (Normal) 10:18 TESTOSTERONE, FREE, Comments: Items in this order include: Protime & INR, Draw Charge[i], TESTOSTERONE, FREE, BIOAVAILABLE, AND TOTAL, LC/MS/ MSTesting performed at: [facility] [place], [address] [address], [place], [address], Otolaryngology Rep: Michael Chávez [facility] TOTAL, LC/MS/MS ALBUMIN,SERUM 4.4 [...] PT (PROTHROMBIN TIME) ([facility]) (11982) 7. Saturday Dosage 5.0 mg (Normal) 6. [...] Panel, Hemoglobin A1C, Draw Charge[i] (HGB A1C) (01151) A1C 6.1 % (Normal) Range: 4.6-6.2 13:29 [...] (Normal) Range: 135-145 13:29 DIGOXIN, DRUG ASSAY (48141) DIG 0.85 ng/mL (Abnormal) Range: 0.90-2.00 07-Aug-2011 TESTOSTERONE, FREE, Comments: Items in this order include: TESTOSTERONE, FREE, BIOAVAILABLE, AND TOTAL, LC/MS/MSTesting performed at: [facility] [place], [address], [place] , [address], [place]o 12:53 WEAKLY BOUND AND TOTAL ratory Director: Michael Chávez MD.[facility] (15738) ALBUMIN,SERUM 4.4 g/dL (Normal) Range: 3.6-5.1 SEX [...] INR, Draw Charge[i]no change in coumadin dose ([facility]) (86926) 7. Saturday Dosage 7.5 mg (Normal) 6. [...] Metabolic Panel, Protime & INR, Draw Charge[i] ([facility]) (39369) 7. Saturday Dosage 5.0 mg (Normal) 5. [...] Boswell in this order include: PSA ANTIGEN) (84361) PSA 5.95 ng/mL (Abnormal) Range: 0.00-4.00 CBC-MALE- ORDER THIS Comments: Items in this order include : Hemoglobin A1C, Comprehensive Metabolic Panel, CBC 11:56 ONE! (73116) manual diff Not Indicated (Normal) mpv 7.65 [...] 6.24 10*3/uL (Normal) Range: 4.50-10.50 11:56 CMP (22053) Comments: Items in this order include: Hemoglobin [...] this order include: Digoxin, Draw Charge[i] 15:17 (09188) DIG 1.18 ng/mL (Normal) Range: 0.90-2.00 HEMOGLOBIN GLYCLATED Comments: Items in this order include: Hemoglobin A1C, Comprehensive Metabolic Panel, CBC 11:56 (HGB A1C) (51950) A1C 6.6 % (Abnormal) Range: 4.6-6.2 Comments: Consistent with diabetes. 13:48 PT (PROTHROMBIN TIME) Comments: change to coumadin 5mg x 2 day then 7.5mg x1 repeat the cycle; Items in this order include: Protime & INR, Draw Charge[i]cyclechange to coumadin 5mg x 2 day then 7.5mg x1 repeat the ([facility]) (16591) 6. Saturday Dosage 7.5 mg (Normal) 7. [...] & INR, PSA, Draw Charge[i] 09:43 ANTIGEN) (82060) PSA 5.84 ng/mL (Abnormal) Range: 0.00-4.00 09:43 PT (PROTHROMBIN TIME) Comments: no change in coumadin; no change in coumadin ([facility]) (82388) 7. Saturday Dosage 7.5 mg (Normal) 6. Saturday Dosage 5.0 mg (Normal) 5. Dosage 7.5 mg (Normal) 4. Saturday Dosage 5.0 mg (Normal) 3. Saturday Dosage 5.0 mg (Normal) 1. Willie Dosage 5.0 mg (Normal) 2. Saturday Dosage 7.5 mg (Normal) INR 3.45 (Normal) PT 32.9 s (Abnormal) Range: 10.4-12.4 23-Nov-2010 PT (PROTHROMBIN TIME) 10:03 ([facility]) (19487) 6. Saturday Dosage 7.5 mg (Normal) 7. Saturday Dosage 5 mg (Normal) 1. Saturday Dosage 5 mg (Normal) 2. Saturday Dosage 7.5 mg (Normal) 3. Saturday Dosage 5 mg (Normal) 4. Saturday Dosage 7.5 mg (Normal) 5. Dosage 5 mg (Normal) INR 2.16 (Normal) PT 21.0 s (Abnormal) Range: 10.4-12.4 19-Oct-2010 PT (PROTHROMBIN TIME) 15:16 ([facility]) (29854) 6. Saturday Dosage 5 mg (Normal) 7. Saturday Dosage 7.5 mg (Normal) 3. Saturday Dosage 7.5 mg (Normal) 4. Saturday Dosage 5 mg (Normal) 5. Dosage 7.5 mg (Normal) 1. Willie Dosage 7.5 mg (Normal) 2. Saturday Dosage 5 mg (Normal) INR 2.13 (Normal) PT 20.7 s (Abnormal) Range: 10.4-12.4 12-Sep-2010 PT (PROTHROMBIN TIME) 11:03 ([facility]) (97144) INR 2.57 (Normal) PT (PROTHROMBIN TIME) 24.8 s (Abnormal) Range: 11.5-13.5 22-Aug-2010 PT (PROTHROMBIN TIME) 13:41 ([facility]) (68554) 09-Aug-2010 PSA, MEDICARE (G0103) Comments: please fax to dr hema boswell 09:54 PSA (Medicare) 4.83 ng/mL (Abnormal) Range: 0 - 4 09:34 PT (PROTHROMBIN TIME) [place] [place] ([id number]) INR 2.68 (Normal) PT (PROTHROMBIN TIME) 25.8 s (Abnormal) Range: 11.5-13.5 27-Jun-2010 PT (PROTHROMBIN TIME) 08:38 ([facility]) ([id number]) 26-Jun-2010 PT (PROTHROMBIN TIME) 16:21 ([facility]) ([id number]) INR 1.89 (Normal) PT (PROTHROMBIN TIME) 18.4 s (Abnormal) Range: 11.5-13.5 Treatment Plan LIPID PANEL ([id number]); Ordered: 10/28/2015; Note: Verbal order from Dr. [...] (PCV13)FOR MEDICARE USE ONLY Pneumovax injection (V03.82) [id number], Encounter for long-term ( current) use of [...] M.D. after being in the hospital at [facility] on 10/16/13 & discharged on 10/17/13 [...] seeing dr. boswell the middle of ). [facility] Historical Summary On [facility] [...] 22:23 Insurance Vijay Yuan; gwen guarantorMedicare WPSReserve [facility] Farm Insurance
--- OUTSIDE RECORDS SUMMARY | 2017-10-22 17:48 | External Medical Summary | Continuity of Care Document ---
:1940 Author Organization [facility] Address [address] [place] [address] Phone Care Team Providers Name Role Phone [...] Prevnar (PCV13)FOR MEDICARE USE ONLY Pneumovax injection 90072 (V03.82) Status: Active Renal lithiasis (592.0, N20.0) [...] 100 days Quantity: 100 {Box} Refills: 4 Ordered:23-Dec-2014 James Romero MD Start 23-Dec-2014 Active Comments:dx 250.00 TRUETEST TEST (In Vitro [...] Comments:started on 10/17/13 after being dismissed from [facility] for kidney stone by cac CITALOPRAM [...] dx kidney stone from being discharged from [facility] testrone cream 10% apply 0.5ml daily [...] appt as scheduled Ordered:28-Oct-2014 CAROTID BILATERAL US (09965) Completed:14-Sep-2014 Comments: Verbal order from Dr. James Romero Follow up in 6 months Ordered:12-Aug-2014 PREVNAR 13 VALENT PNEUMOCOCCAL Completed:12-Aug-2014 VACCINE (54712) ADMINISTRATION OF PNEUMOCOCCAL Ordered:12-Aug-2014 CONJUGATE VACCINE (G0009) How to access health information Completed:12-Aug-2014 online Follow up in 6 months Ordered: Follow up in 2 months Ordered:26-Oct-2013 ADMIN INFLUENZA VIRUS VAC: FLU VACC Completed:26-Oct-2013 PRSV FREE INC ANTIG (85052) ADMINISTRATION OF INFLUENZA VIRUS Ordered:26-Oct-2013 VACCINE (G0008) Follow up in 6 months Ordered:30-Apr-2013 Follow up - Keep appt as scheduled Ordered:02-Jan-2013 Follow up in 6 months Ordered:30-Oct-2012 Follow up in 3 months Ordered:01-Aug-2012 Follow up in 3 months Ordered:01-May-2012 Follow up in 6 weeks Ordered: ADMINISTRATION OF INFLUENZA VIRUS Ordered:14-May-2011 VACCINE (G0008) FLU VACC PRSV FREE INC ANTIG Completed:14-May-2011 (63496) Follow up in 2 months Ordered:14-May-2011 Follow up in 2 months Ordered: Annual Eye Exam Completed:22-Nov-2008 Colonoscopy, Screening Completed: Colonoscopy, Screening Completed:06-Oct-2014 Flu Vaccine Completed:26-Oct-2013 Flu Vaccine Completed:06-Jun-2012 Comments: [facility] Flu Vaccine Completed:14-May-2011 Comments: high dose Pneumovax Completed:2008 13 Completed:12-Aug-2014 PSA Completed:28-Apr-2012 Comments: (16.45) PSA Completed:10-Apr-2011 Comments: (5.95) PSA Completed:23-Jun-2012 Comments: (8.05) PSA Completed:14-Oct-2012 Comments: (8.11) PSA Completed: Comments: (5.60) PSA Completed:15-Sep-2013 Comments: (5.40) PSA Completed: Comments: (6.15) PSA Completed:24-Aug-2014 Comments: (7.11) Immunization Name Dates Details Fluzone Administered on:14-May-2011 Comments: Site: Deltoid (Left); high dose Lot #: [id number] Influenza, preserv. free, enhanced immunogncty, IM Administered on:2013 Comments: Site: Deltoid (Left) Lot #: [id number] Pneumococcal conjugate vaccine, 13 valent, IM Administered on:12-Aug-2014 Comments: Site: Deltoid (Left) Lot #: [id number] Social History Name Dates Details Tobacco use: [...] Comments: The left neck Final 10:36 SINGLE (97882) lesion was removed and also the left [...] not sent to pathology. 10:35 PUNCH BIOPSY (34061) Comments: After Final FIRST BIOPSY cleansing the [...] a artifical heart valve? No 10:48 ([facility]) (06724) 9. Saturday Dosage 7.5 mg (Normal) 8. [...] order include: Draw Charge[i], Protime & INR (23430) Draw Drawn (Normal) 29-Nov-2014 PT (PROTHROMBIN TIME) Comments: Items in this order include: Draw Charge[i], Protime & INRDoes patient have a artifical heart valve? No 10:28 (Plunify) (34908) 9. Saturday Dosage 5.0 mg (Normal) 8. [...] order include: Draw Charge[i], Protime & INR (15666) Draw Drawn (Normal) 21-Sep-2014 PT (PROTHROMBIN TIME) Comments: Items in this order include: Draw Charge[i], Protime & INRDolynn patient have a artifical heart valve? No 10:08 ([facility]) (36398) 9. Saturday Dosage 5.0 mg (Normal) 7. [...] order include: Draw Charge[i], Protime & INR (40281) Draw Drawn (Normal) 24-Aug-2014 Routine Venipuncture Comments: Items in this order include: Protime & INR, Draw Charge[i] 09:59 (82477) Draw Drawn (Normal) 09:59 PT (PROTHROMBIN TIME) Comments: Items in this order include: Protime & INR, Draw Charge[i]INR value > 3.0 given to Estella by Beny Buckley patient have a artifical heart valve? No ([facility]) (64395) 9. Saturday Dosage 7.5 mg (Normal) 7. [...] Panel, Hemoglobin A1C, Urine Microalbumin, CBC ONE! (33115) manual diff Not Indicated (Normal) mpv 9.60 [...] Metabolic Panel, Hemoglobin A1C, Urine Microalbumin, CBC (78880) U A:C RATIO <30 mg/g Normal Range: <30 mg/g Normal (Normal) U CREAT 200 mg/dL (Normal) Range: 10-300 U ALB 80 mg/L (Abnormal) Range: 10 mg/L 09:59 HEMOGLOBIN GLYCLATED Comments: Items in this order include: Digoxin , PSA, Basic Metabolic Panel, Hemoglobin A1C, Urine Microalbumin, CBC (HGB A1C) (47487) A1C 5.9 % (Normal) Range: 4.6-6.2 Comments: Increased risk of diabetes. 09:59 [facility] (72116) Comments: Items in this order include: Digoxin, [...] Panel, Hemoglobin A1C, Urine Microalbumin, CBC ANTIGEN) (15736) PSA 7.11 ng/mL (Abnormal) Range: 0.00-4.00 09:59 DIGOXIN (35283) Comments: Items in this order include: Digoxin, PSA , Basic Metabolic Panel, Hemoglobin A1C, Urine Microalbumin, CBCTime of Last Dose? 08/23/2014 8:00 AMDosage? 0.25 DIG 0.36 ng/mL (Abnormal) Range: 0.90-2.00 05-Aug-2014 PT (PROTHROMBIN TIME) Comments: Items in this order include: Draw Charge[i], Protime & INRDoes patient have a artifical heart valve? No 10:48 ([facility]) (30697) 8. Saturday Dosage 7.5 mg (Normal) 9. [...] order include: Draw Charge[i], Protime & INR (60902) Draw Drawn (Normal) 03-Jun-2014 PT (PROTHROMBIN TIME) Comments: Items in this order include: Draw Charge[i], Protime & INRDoes patient have a artifical heart valve? No 13:56 ([facility]) (85393) 9. Saturday Dosage 7.5 mg (Normal) 8. [...] order include: Draw Charge[i], Protime & INR (17947) Draw Drawn (Normal) PT (PROTHROMBIN TIME) Comments: Items in this order include: Protime & INRDoes patient have a artifical heart valve? No 14:25 ([facility]) (01026) 9. day Dosage 5.0 mg (Normal) 8. [...] this order include: Draw Charge[i], PSA ANTIGEN) (46360) PSA 6.15 ng/mL (Abnormal) Range: 0.00-4.00 14:25 Routine Venipuncture Comments: A copy of this report will be faxed to: Bettie Boswell in this order include: Draw Charge[i], PSA (62162) Draw Drawn (Normal) HEMOGLOBIN GLYCLATED Comments: Items in this order include: Hemoglobin A1C, Draw Charge[i], Comprehensive Metabolic Panel, Uric Acid 15:06 (HGB A1C) (14412) A1C 5.7 % (Normal) Range: 4.6-6.2 15:06 CMP (13677) Comments: Items in this order include: Hemoglobin [...] (Normal) Range: 135-145 15:06 URIC ACID BLOOD (74137) Comments: Items in this order include: Hemoglobin A1C, Draw Charge[i], Comprehensive Metabolic Panel, Uric Acid Uric Acid 8.0 mg/dL (Abnormal) Range: 3.6-7.7 15:06 Routine Venipuncture Comments: Items in this order include: Hemoglobin A1C, Draw Charge[i], Comprehensive Metabolic Panel, Uric Acid (13773) Draw Drawn (Normal) PT (PROTHROMBIN TIME) Comments: Items in this order include: Draw Charge[i], Protime & INRDoes patient have a artifical heart valve? No 14:27 ([facility]) (11989) 8. Saturday Dosage 5.0 mg (Normal) 9. [...] order include: Draw Charge[i], Protime & INR (36553) Draw Drawn (Normal) 26-Oct-2013 Draw Charge[i] Comments: Items in this order include: Basic Metabolic Panel, Draw Charge[i] 17:08 Draw Drawn (Normal) 17:05 [facility] (22296) Comments: Items in this order include: Basic [...] have a artifical heart valve? No ([facility]) (29591) 9. Saturday Dosage 5.0 mg (Normal) 7. [...] order include: Draw Charge[i], Protime & INR (96997) Draw Drawn (Normal) 15-Sep-2013 PSA (PROSTATE SPECIFIC Comments: A copy of this report will be faxed to: Bettie Boswell in this order include: A COPY TO [eliana PSAPSA allowed more than once a year due to being a Diagonistic PSA not a screening PSA 11:05 ANTIGEN) (80891) PSA 5.40 ng/mL (Abnormal) Range: 0.00-4.00 11:[address] Boswell Comments: A copy of this report will be faxed to: eBttie Boswell in this order include: A COPY [...] this order include: Comprehensive Metabolic Panel, Hemoglobin [id number] Hgb A1C was ran 99 Days ago. Check by MARGARITA 10:38 (HGB A1C) (65753) A1C 5.9 % (Normal) Range: 4.6-6.2 Comments: Increased risk of diabetes. 10:38 [facility] (92966) Comments: Items in this order include: Comprehensive Metabolic Panel, Hemoglobin [id number] Hgb A1C was ran 99 Days ago. [...] have a artifical heart valve? No ([facility]) (71951) 9. Saturday Dosage 5.0 (cycle of 5,5,7.5 [...] order include: Draw Charge[i], Protime & INR (00948) Draw Drawn (Normal) 10:38 DIGOXIN (47264) Comments: Items in this order include: DigoxinTime of Last Dose? 08/06/2013 8:30 AMDosage? 0.25 mg daily DIG 0.48 ng/mL (Abnormal) Range: 0.90-2.00 30-Apr-2013 HEMOGLOBIN GLYCLATED Comments: Items in this order include: Comprehensive Metabolic Panel, CBC, Hemoglobin A9PMtna Hgb A1C was ran 225 Days ago. Check by ms 11:58 (HGB A1C) (60385) A1C 6.1 % (Normal) Range: 4.6-6.2 11:58 CBC MALE- ORDER THIS Comments: Items in this order include: Comprehensive Metabolic Panel, CBC, Hemoglobin [id number] Hgb A1C was ran 225 Days ago. Check by ms ONE! (75981) manual diff Not Indicated (Normal) mpv 4.88 [...] 6.15 10*3/uL (Normal) Range: 4.50-10.50 11:58 CMP (09851) Comments: Items in this order include: Comprehensive Metabolic Panel, CBC, Hemoglobin [id number] Hgb A1C was ran 225 Days ago. [...] have a artifical heart valve? No ([facility]) (70111) 4. Saturday Dosage Repeat mg (Normal) 3. Saturday Dosage 7.5 mg (Normal) 2. Saturday Dosage 5.0 mg (Normal) 1. Saturday Dosage 5.0 mg (Normal) INR 2.60 (Normal) PT 26.8 s (Abnormal) Range: 10.4-12.4 -March-2013 PT (PROTHROMBIN TIME) Comments: Items in this order include: Draw Charge[i], Protime & INRDoes patient have a artifical heart valve? No 15:12 (Plunify) (57921) 5. Dosage Repeat mg (Normal) 4. Saturday Dosage 5.0 mg (Normal) 3. Saturday Dosage 5.0 mg (Normal) 2. Saturday Dosage 7.5 mg (Normal) INR 2.31 (Normal) PT 24.0 s (Abnormal) Range: 10.4-12.4 15:12 Routine Venipuncture Comments: Items in this order include: Draw Charge[i], Protime & INR (29909) Draw Drawn (Normal) PSA (PROSTATE SPECIFIC Comments: A copy of this report will be faxed to: Bettie Boswell in this order include: PSA, Draw Charge[i]PSA allowed more than once a year due to being a Diagonistic PSA not a screening PSA 10:00 ANTIGEN) (13640) PSA 5.60 ng/mL (Abnormal) Range: 0.00-4.00 10:00 [...] have a artifical heart valve? No ([facility]) (04304) 3. Saturday Dosage Repeat mg (Normal) 2. Saturday Dosage 7.5 mg (Normal) 1. Saturday Dosage 5.0 mg (Normal) INR 2.64 (Normal) PT 27.2 s (Abnormal) Range: 10.4-12.4 10:09 Routine Venipuncture Comments: Items in this order include: Draw Charge[i], Protime & INR (60532) Draw Drawn (Normal) 16-Dec-2012 PT (PROTHROMBIN TIME) Comments: Items in this order include: Draw Charge[i], Protime & INRDoes patient have a artifical heart valve? No 10:46 ([facility]) (16298) 4. Saturday Dosage Repeat mg (Normal) 3. Saturday Dosage 5.0 mg (Normal) 2. Saturday Dosage 7.5 mg (Normal) INR 2.13 (Normal) PT 22.2 s (Abnormal) Range: 10.4-12.4 10:46 Routine Venipuncture Comments: Items in this order include: Draw Charge[i], Protime & INR (73440) Draw Drawn (Normal) 26-Nov-2012 Routine Venipuncture Comments: Items in this order include: Protime & INR, Draw Charge[i] 15:05 (94195) Draw Drawn (Normal) 15:05 PT (PROTHROMBIN TIME) Comments: Items in this order include: Protime & INR, Draw Charge[i]Does patient have a artifical heart valve? No ([facility]) (46084) 4. Saturday Dosage 5.0 Repeat mg (Normal) 3. Saturday Dosage 5.0 mg (Normal) 2. Saturday Dosage 7.5 mg (Normal) INR 1.34 (Normal) PT 14.4 s (Abnormal) Range: 10.4-12.4 30-Oct-2012 PT (PROTHROMBIN TIME) Comments: Items in this order include: Draw Charge[i], Protime & INRINR value > 3.0 given to BW by Froy Chávez patient have a artifical heart valve? No 10:38 ([facility]) (96514) 7. Saturday Dosage 7.5 mg (Normal) 6. [...] order include: Draw Charge[i], Protime & INR (50127) Draw Drawn (Normal) 11:33 BMP Comments: Items [...] Dose? 10/29/2012 8:00 PMDosage? 0.25 mg Daily (32667) DIG 1.64 ng/mL (Normal) Range: 0.90-2.00 14-Oct-2012 PSA (PROSTATE SPECIFIC Comments: A copy of this report will be faxed to: Bettie Boswell in this order include: Draw Charge[i], Protime & INR, PSAPSA allowed more than once a year due to being a Diagonistic PSA not a screening PSA 10:25 ANTIGEN) (12401) PSA 8.11 ng/mL (Abnormal) Range: 0.00-4.00 10:25 PT (PROTHROMBIN TIME) Comments: PSA allowed more than once a year due to being a Diagonistic PSA not a screening PSACoumadin dosage=5,5,5,5,7.5 repeatDoes patient have a artifical heart valve? No ([facility]) (67105) 7. Saturday Dosage 7.5 mg (Normal) 6. [...] a Diagonistic PSA not a screening PSA (65241) Draw Drawn (Normal) 12-Sep-2012 PT (PROTHROMBIN TIME) Comments: Items in this order include: Draw Charge[i], Protime & INRDoes patient have a artifical heart valve? No 09:16 (Plunify) (88313) 6. Saturday Dosage Repeat mg (Normal) 5. Dosage 7.5 mg (Normal) 4. Saturday Dosage 5.0 mg (Normal) 3. Saturday Dosage 5.0 mg (Normal) 2. Saturday Dosage 5.0 mg (Normal) 1. Saturday Dosage 5.0 mg (Normal) INR 2.48 (Normal) PT 25.7 s (Abnormal) Range: 10.4-12.4 09:16 Routine Venipuncture Comments: Items in this order include: Draw Charge[i], Protime & INR (05495) Draw Drawn (Normal) 18-Aug-2012 PT (PROTHROMBIN TIME) Comments: Items in this order include: Protime & INRDoes patient have a artifical heart valve? No 11:44 ([facility]) (01083) 7. Saturday Dosage 5.0 mg (Normal) 6. [...] Days ago. Check by KB (HGB A1C) (42031) A1C 6.2 % (Normal) Range: 4.6-6.2 Comments: High risk of diabetes. 31-Jul-2012 PT (PROTHROMBIN TIME) Comments: Items in this order include: Draw Charge[i], Protime & INRINR value > 3.0 given to Estella by Beny Buckley patient have a artifical heart valve? No 13:32 ([facility]) (33860) 7. day Dosage 5.0 mg (Normal) 6. [...] order include: Draw Charge[i], Protime & INR (78027) Draw Drawn (Normal) 23-Jun-2012 PSA (PROSTATE SPECIFIC Comments: A copy of this report will be faxed to: Bettie Boswell in this order include: Draw Charge[i], Protime & INR, PSAPSA allowed more than once a year due to being a Diagonistic PSA not a screening PSA 15:50 ANTIGEN) (65632) PSA 8.05 ng/mL (Abnormal) Range: 0.00-4.00 15:50 PT (PROTHROMBIN TIME) Comments: A copy of this report will be faxed to: Bettie Boswell in this order include: Draw Charge[i], Protime & INR , PSAPSA allowed more than once a year due to being a Diagonistic PSA not a screening ([facility]) (00844) PSADoes patient have a artifical heart valve? [...] a Diagonistic PSA not a screening PSA (58622) Draw Drawn (Normal) 13-May-2012 Draw Charge[i] Comments: [...] results to dr. hema boswell 14:28 ANTIGEN) (80090) PSA 16.45 ng/mL (Abnormal) Range: 0.00-4.00 14:28 PT (PROTHROMBIN TIME) Comments: Coumadin Dosage=5,5,5,7.5 Repeat. Took 7.5 on 04-27-12. ([facility]) (59119) 5. Dosage 7.5 Repeat mg (Normal) 4. Saturday Dosage 5.0 mg (Normal) 3. Saturday Dosage 5.0 mg (Normal) 2. Saturday Dosage 5.0 mg (Normal) 1. Saturday Dosage 7.5 mg (Normal) INR 2.17 (Normal) PT 22.7 s (Abnormal) Range: 10.4-12.4 14:28 Routine Venipuncture (52309) Draw Drawn (Normal) 13-May-2012 PSA (PROSTATE SPECIFIC Comments: A copy of this report will be faxed to: Bettie Boswell in this order include: PSA, Draw Charge[i]PSA allowed more than once a year due to being a Diagonistic PSA not a screening PSA 09:20 ANTIGEN) (37166) PSA 11.30 ng/mL (Abnormal) Range: 0.00-4.00 TSH (THYROID Comments: Items in this order include: TSH 16:40 STIMULATING HORMONE) (63233) TSH 1.36 uIU/ml (Normal) Range: 0.34-5.60 14:50 PT (PROTHROMBIN TIME) Comments: Items in this order include: Draw Charge[i], Basic Metabolic Panel, Hemoglobin A1C, Protime & INRLast Hbg A1C was ran 218 Days ago. Check by DL ([facility]) (58723) 5. Dosage Repeat mg (Normal) 4. Saturday [...] ran 218 Days ago. Check (HGB A1C) (38258) by DLplease draw enough blood so if [...] ran 218 Days ago. Check by DL (08291) Draw Drawn (Normal) DIGOXIN, DRUG ASSAY Comments: Items in this order include: CBC, Comprehensive Metabolic Panel, CKI, Digoxin, Draw Charge[i] 09:08 (83262) DIG 0.38 ng/mL (Abnormal) Range: 0.90-2.00 09:08 CK Comments: Items in this order include: CBC, Comprehensive Metabolic Panel, CKI, Digoxin, Draw Charge[i] CKI 143 U/L (Normal) Range: 39-308 09:08 CMP (64677) Comments: Items in this order include: CBC, [...] Metabolic Panel, CKI, Digoxin, Draw Charge[i] ONE! (24678) manual diff Not Indicated (Normal) mpv 6.84 [...] order include: Protime & INR, Draw Charge[i] (22203) Draw Drawn (Normal) 16:45 PT (PROTHROMBIN TIME) Comments: Items in this order include: Protime & INR, Draw Charge[i]Coumadin doasage=5,5,7.5 Repeat ([facility]) (20172) 7. Saturday Dosage 5.0 mg (Normal) 6. [...] order include: Draw Charge[i], PSA 11:11 ANTIGEN) (88938) PSA 6.92 ng/mL (Abnormal) Range: 0.00-4.00 11:11 Routine Venipuncture Comments: A copy of this report will be faxed to: Bettie Boswell in this order include: Draw Charge[i], PSA (22711) Draw Drawn (Normal) 17-Oct-2011 Routine Venipuncture 10:18 (16255) Draw Drawn (Normal) 10:18 TESTOSTERONE, FREE, Comments: Items in this order include: Protime & INR, Draw Charge[i], TESTOSTERONE, FREE, BIOAVAILABLE, AND TOTAL, LC/MS/ MSTesting performed at: [place], [address] [address], [place], [address], Banking Manager: Michael Chávez [facility] TOTAL, LC/MS/MS ALBUMIN,SERUM [...] benefits counseling. 10:18 PT (PROTHROMBIN TIME) ([facility]) (57808) 7. Saturday Dosage 5.0 mg (Normal) 6. [...] Panel, Hemoglobin A1C, Draw Charge[i] (HGB A1C) (23657) A1C 6.1 % (Normal) Range: 4.6-6.2 13:29 [...] (Normal) Range: 135-145 13:29 DIGOXIN, DRUG ASSAY (33884) DIG 0.85 ng/mL (Abnormal) Range: 0.90-2.00 07-Aug-2011 TESTOSTERONE, FREE, Comments: Items in this order include: TESTOSTERONE, FREE, BIOAVAILABLE, AND TOTAL, LC/MS/MSTesting performed at: [place], [address] [address] , [place] , [address], [place] 12:53 WEAKLY BOUND AND TOTAL ratory Director: Michael Chávez MD.[facility] (03391) ALBUMIN,SERUM 4.4 g/dL (Normal) Range: 3.6-5.1 SEX [...] Draw Charge[i]no change in coumadin dose ([facility]) (09458) 7. Saturday Dosage 7.5 mg (Normal) 6. [...] Panel, Protime & INR, Draw Charge[i] ([facility]) (35388) 7. Saturday Dosage 5.0 mg (Normal) 5. [...] Boswell in this order include: PSA ANTIGEN) (16658) PSA 5.95 ng/mL (Abnormal) Range: 0.00-4.00 CBC-MALE- ORDER THIS Comments: Items in this order include : Hemoglobin A1C, Comprehensive Metabolic Panel, CBC 11:56 ONE! (95458) manual diff Not Indicated (Normal) mpv 7.65 [...] 6.24 10*3/uL (Normal) Range: 4.50-10.50 11:56 CMP (90028) Comments: Items in this order include: Hemoglobin [...] this order include: Digoxin, Draw Charge[i] 15:17 (00161) DIG 1.18 ng/mL (Normal) Range: 0.90-2.00 HEMOGLOBIN GLYCLATED Comments: Items in this order include: Hemoglobin A1C, Comprehensive Metabolic Panel, CBC 11:56 (HGB A1C) (53846) A1C 6.6 % (Abnormal) Range: 4.6-6.2 Comments: Consistent with diabetes. 13:48 PT (PROTHROMBIN TIME) Comments: change to coumadin 5mg x 2 day then 7.5mg x1 repeat the cycle; Items in this order include: Protime & INR, Draw Charge[i]cyclechange to coumadin 5mg x 2 day then 7.5mg x1 repeat the ([facility]) (45647) 6. Saturday Dosage 7.5 mg (Normal) 7. [...] & INR, PSA, Draw Charge[i] 09:43 ANTIGEN) (33317) PSA 5.84 ng/mL (Abnormal) Range: 0.00-4.00 09:43 PT (PROTHROMBIN TIME) Comments: no change in coumadin; no change in coumadin ([facility]) (92607) 7. Saturday Dosage 7.5 mg (Normal) 6. Saturday Dosage 5.0 mg (Normal) 5. Dosage 7.5 mg (Normal) 4. Saturday Dosage 5.0 mg (Normal) 3. Saturday Dosage 5.0 mg (Normal) 1. Saturday Dosage 5.0 mg (Normal) 2. Saturday Dosage 7.5 mg (Normal) INR 3.45 (Normal) PT 32.9 s (Abnormal) Range: 10.4-12.4 23-Nov-2010 PT (PROTHROMBIN TIME) 10:03 ([facility]) (95035) 6. Saturday Dosage 7.5 mg (Normal) 7. Saturday Dosage 5 mg (Normal) 1. Saturday Dosage 5 mg (Normal) 2. Saturday Dosage 7.5 mg (Normal) 3. Saturday Dosage 5 mg (Normal) 4. Saturday Dosage 7.5 mg (Normal) 5. Dosage 5 mg (Normal) INR 2.16 (Normal) PT 21.0 s (Abnormal) Range: 10.4-12.4 19-Oct-2010 PT (PROTHROMBIN TIME) 15:16 ([facility]) (35334) 6. Saturday Dosage 5 mg (Normal) 7. Saturday Dosage 7.5 mg (Normal) 3. Saturday Dosage 7.5 mg (Normal) 4. Saturday Dosage 5 mg (Normal) 5. Dosage 7.5 mg (Normal) 1. Saturday Dosage 7.5 mg (Normal) 2. Saturday Dosage 5 mg (Normal) INR 2.13 (Normal) PT 20.7 s (Abnormal) Range: 10.4-12.4 12-Sep-2010 PT (PROTHROMBIN TIME) 11:03 ([facility]) (45230) INR 2.57 (Normal) PT (PROTHROMBIN TIME) 24.8 s (Abnormal) Range: 11.5-13.5 22-Aug-2010 PT (PROTHROMBIN TIME) 13:41 ([facility]) (99884) 09-Aug-2010 PSA, MEDICARE (G0103) Comments: please fax to dr hema boswell 09:54 PSA (Medicare) 4.83 ng/mL (Abnormal) Range: 0 - 4 09:34 PT (PROTHROMBIN TIME) ([facility]) (18463) INR 2.68 (Normal) PT (PROTHROMBIN TIME) 25.8 s (Abnormal) Range: 11.5-13.5 27-Jun-2010 PT (PROTHROMBIN TIME) 08:38 ([facility]) (96864) 26-Jun-2010 PT (PROTHROMBIN TIME) 16:21 ([facility]) (45509) INR 1.89 (Normal) PT (PROTHROMBIN TIME) 18.4 s (Abnormal) Range: 11.5-13.5 Treatment Plan PT (PROTHROMBIN TIME) ([facility]) (36400); Ordered: 12/27/2014Routine Venipuncture ( 07963); Ordered: 12/27/2014 Advance Directives Encounters Lab entry only - Encounter for long-term (current) use of anticoagulants ( V58.61 | Z79.01) On 29-Nov-2014 [facility] 12:31 to 15:09 Medication Entry - Diabetes mellitus (250.00 | E11.9) On 12-Nov-2014 [facility] 11:46 to 11:53 Medication Entry - Cellulitis, leg (682.6 | L03.119) On 11-Nov-2014 [facility] 09:48 to 10:00 Office Visit [...] "Transition into care": He feels things are improved.[facility] Historical Summary On 27-Oct-2014 [facility] 15:03 to 15:08 Lab entry only - Fibrillation, atrial (427.31), Encounter for long-term ( current) use of anticoagulants (V58.61 | Z79.01) On 18-Oct-2014 [facility] 17:08 to 17:09 Medication Entry - Gout (274.9 | M10.9) On 12-Oct-2014 [facility] 16:17 to 16:22 Lab entry only - Encounter for long-term (current) use of anticoagulants ( V58.61 | Z79.01) On 21-Sep-2014 [facility] 15:31 to 15:33 Radiology Visit - Carotid stenosis (433.10 | I65.29) On 14-Sep-2014 [facility] 09:33 to 09:36 Lab entry only - Encounter for long-term (current) use of anticoagulants ( V58.61 | Z79.01) On 24-Aug-2014 [facility] 16:31 to 16:34 Office Visit - Health education (V65.40 | Z71.9), Prevnar (PCV13)FOR MEDICARE USE ONLY Pneumovax injection (V03.82) 33729, Encounter for long-term ( current) use of [...] [employer] screening. He mentions the "discoloration" of ankles.[facility] Historical Summary On 11-Aug-2014 [facility] 16:16 to 16:19 Lab entry only - Fibrillation, atrial (427.31), Encounter for long-term ( current) use of anticoagulants (V58.61 | Z79.01) On 06-Aug-2014 [facility] 16:41 to 16:43 Medication Entry - Benign essential hypertension (401.1 | I10) On 21-Jun-2014 [facility] 11:12 to 11:14 Lab entry only - Encounter for long-term (current) use of anticoagulants ( V58.61 | Z79.01) On 03-Jun-2014 [facility] 16:13 to 16:15 Lab entry only - Encounter for long-term (current) use of anticoagulants ( V58.61 | Z79.01) On [facility] 13:22 to 13:23 Lab entry only - Elevated PSA (790.93), Encounter for long-term (current) use of anticoagulants (V58.61 | Z79.01) On [facility] 14:27 to 14:28 Office Visit [...] thing in the morning and on stairs. [facility] Historical Summary On 28-Dec-2013 [facility] 12:26 to 12:29 Medication Entry - Encounter for long-term (current) use of anticoagulants ( V58.61 | Z79.01), Diabetes mellitus (250.00 | E11.9), Fibrillation, atrial ( 427.31) On 03-Nov-2013 [facility] 09:01 to 11:53 Medication Entry - Fibrillation, atrial (427.31), Diabetes mellitus (250.00 | E11.9) On 30-Oct-2013 [facility] 15:55 to 16:00 Lab entry only - Encounter for long-term (current) use of anticoagulants ( V58.61 | Z79.01) On 27-Oct-2013 [facility] 17:57 to 17:59 Office Visit [...] M.D. after being in the hospital at [facility] on 10/16/13 & discharged on 10/17/13 dx jasmeet diaz, inr was done prior to visit.) . Note for "Transition into care": He passed a kidney stone a week ago.[facility] Historical Summary On 23-Oct-2013 [facility] 14:42 to 14:45 Lab entry only - Encounter for long-term (current) use of anticoagulants ( V58.61 | Z79.01) On 20-Oct-2013 [facility] 16:31 to 16:33 Lab entry only - Encounter for long-term (current) use of anticoagulants ( V58.61 | Z79.01) On 16-Sep-2013 [facility] 10:14 to 10:15 Lab entry only - Elevated PSA (790.93) On 15-Sep-2013 [facility] 11:11 to 11:12 Lab entry only - Encounter for long-term (current) use of anticoagulants ( V58.61 | Z79.01) On 07-Aug-2013 [facility] 14:32 to 14:33 Lab entry only - Benign essential hypertension (401.1 | I10), Diabetes mellitus (250.00 | E11.9) On 07-Aug-2013 [facility] 11:18 to 11:19 Lab entry only - Encounter for long-term (current) use of anticoagulants ( V58.61 | Z79.01) On 01-May-2013 [facility] 10:33 to 10:38 Office Visit [...] He did miss some meds while he traveled.[facility] Historical Summary On 29-Apr-2013 [facility] 11:46 to 11:49 Lab entry only - Encounter for long-term (current) use of anticoagulants ( V58.61 | Z79.01) On [facility] 16:39 to 16:42 Lab entry only - Encounter for long-term (current) use of anticoagulants ( V58.61 | Z79.01) On [facility] 19:40 to 19:42 Lab entry only - Elevated PSA (790.93) On [facility] 12:03 to 12:07 Office Visit [...] for "Cough": He has not had an antibiotic.[facility] Lab entry only - Encounter for long-term (current) use of anticoagulants ( V58.61 | Z79.01) On 16-Dec-2012 [facility] 18:21 to 18:23 Lab entry only - Encounter for long-term (current) use of anticoagulants ( V58.61 | Z79.01) On 27-Nov-2012 [facility] 16:52 to 16:53 Lab entry only - Encounter for long-term (current) use of anticoagulants ( V58.61) On 26-Nov-2012 [facility] 15:04 to 15:05 Office Visit [...] first thing in the morning and on stairs.[facility] Historical Summary On 29-Oct-2012 [facility] 16:15 to 16:17 Lab entry only - Encounter for long-term (current) use of anticoagulants ( V58.61) On 15-Oct-2012 [facility] 09:51 to 09:57 Lab entry only - Encounter for long-term (current) use of anticoagulants ( V58.61), Elevated PSA (790.93) On 14-Oct-2012 [facility] 10:25 to 10:26 Lab entry only - Encounter for long-term (current) use of anticoagulants ( V58.61) On 12-Sep-2012 [facility] 13:44 to 13:45 Medication Entry - Edema (782.3), Fibrillation, atrial (427.31) On 20-Aug-2012 [facility] 11:10 to 11:12 Medication Entry - Fibrillation, atrial (427.31), Edema (782.3) On 19-Aug-2012 [facility] 17:29 to 18:11 Medication Entry - Encounter for long-term (current) use of anticoagulants ( V58.61), Fibrillation, atrial (427.31), Diabetes mellitus (250.00) On 2011 [facility] 17:44 to 17:53 Office Visit - 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), Inflamed seborrheic keratosis (702.11), Hyperglycemia (790.29), Encounter for long-term (current) use of anticoagulants (V58.61), Fibrillation, atrial (427.31) On 01-Aug-2012 Encounter Reason: Follow up for chronic condition - The patient feels well with minor complaints (here today for a 3 month follow up with Dr. Romero ) .[facility] 09:34 to 10:39 Medication Entry - Encounter for long-term (current) use of anticoagulants ( V58.61) On 31-Jul-2012 [facility] 18:21 to 18:22 Historical Summary On 31-Jul-2012 [facility] 11:40 to 11:42 Lab entry only - Encounter for long-term (current) use of anticoagulants ( V58.61) On 23-Jun-2012 [facility] 18:47 to 18:52 Lab entry only - Elevated PSA (790.93), Encounter for long-term (current) use of anticoagulants (V58.61) On 23-Jun-2012 [facility] 15:48 to 15:53 Office Visit - Adjustment disorder with depressed mood (309.0), Encounter for long-term (current) use of anticoagulants (V58.61), Elevated PSA (790.93) On Encounter Reason: Follow up for chronic condition - The patient feels well with minor complaints (here for a 6 week follow up visit do to a new medication but did not start the medication).[facility] 11:19 to 13: 39 Historical Summary On 30-Apr-2012 [facility] 11:50 to 11:52 Lab entry only - Encounter for long-term (current) use of anticoagulants ( V58.61) On 28-Apr-2012 [facility] 17:23 to 17:26 Lab entry only - Elevated PSA (790.93), Encounter for long-term (current) use of anticoagulants (V58.61) On 28-Apr-2012 [facility] 14:19 to 14:22 Office Visit [...] , had lab done prior to appt today).[facility] Lab entry only - Edema (782.3), Hyperglycemia (790.29), Encounter for long- term (current) use of anticoagulants (V58.61) On [facility] 11:06 to 11:14 Lab entry only - Elevated PSA (790.93), Fibrillation, atrial (427.31), Edema ( 782.3) On [facility] 09:02 to 09:05 Lab entry only - Encounter for long-term (current) use of anticoagulants ( V58.61) On [facility] 16:44 to 16:45 Medication Entry On 26-Oct-2011 [facility] 13:30 to 13:32 Lab entry only - Elevated PSA (790.93) On 23-Oct-2011 [facility] 11:01 to 11:04 Lab entry only - Encounter for long-term (current) use of anticoagulants ( V58.61), Low testosterone (257.2) On 17-Oct-2011 [facility] 10:15 to 10:17 Medication Entry - Fibrillation, atrial (427.31) On 04-Oct-2011 [facility] 09:26 to 09:38 Medication Entry - Fibrillation, atrial (427.31), Edema (782.3), Encounter for long-term (current) use of anticoagulants (V58.61), Benign prostatic hypertrophy without lower urinary tract symptoms (LUTS) (600.00) On 02-Oct-2011 [facility] 18:56 to 19:02 Medication Entry - Encounter for long-term (current) use of anticoagulants ( V58.61), Fibrillation, atrial (427.31), Edema (782.3) On 26-Sep-2011 [facility] 11:06 to 11:11 Medication Entry - Fibrillation, atrial (427.31), Encounter for long-term ( current) use of anticoagulants (V58.61) On 24-Sep-2011 [facility] 10:41 to 10:49 Lab entry only - Low testosterone (257.2) On 10-Aug-2011 [facility] 13:03 to 13:05 Lab entry only - Hyperglycemia (790.29), Encounter for long-term (current) use of anticoagulants (V58.61), Fibrillation, atrial (427.31) On 08-Aug-2011 [facility] 13:27 to 13:29 Office Visit [...] he 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." [facility] Historical Summary On 06-Aug-2011 [facility] 12:22 to 12:24 Medication Entry - Fibrillation, atrial (427.31) On 05-Jun-2011 [facility] 08:54 to 08:59 Lab entry only - Encounter for long-term (current) use of anticoagulants ( V58.61) On 15-May-2011 [facility] 18:48 to 18:50 Office Visit [...] up is diabetes, hypertension, cardiovascular disorder and other.[facility] Medication Entry - Benign prostatic hypertrophy without lower urinary tract symptoms (LUTS) (600.00) On 19-Apr-2011 [facility] 08:49 to 08:51 Lab entry only - Benign prostatic hypertrophy without lower urinary tract symptoms (LUTS) (600.00) On 10-Apr-2011 [facility] 15:15 to 15:19 Office Visit [...] seeing dr. boswell the middle of apr.). [facility] Historical Summary On [facility] 16:05 to 16:18 Lab entry only - Encounter for long-term (current) use of anticoagulants ( V58.61) On [facility] 17:34 to 17:36 Lab entry only - Encounter for long-term (current) use of anticoagulants ( V58.61), Elevated PSA (790.93) On [facility] 09:42 to 09:43 Lab entry only - Encounter for long-term (current) use of anticoagulants ( V58.61) On 24-Nov-2010 [facility] 08:55 to 08:57 Lab entry only - Encounter for long-term (current) use of anticoagulants ( V58.61) On 20-Oct-2010 [facility] 14:42 to 14:46 Historical Summary - Encounter for long-term (current) use of anticoagulants ( V58.61) On 13-Sep-2010 [facility] 10:53 to 10:59 Historical Summary 12-Sep-2010 to 13-Sep-2010 [facility] Lab entry only - Encounter for long-term (current) use of anticoagulants ( V58.61) On 14-Aug-2010 [facility] 17:44 to 17:49 Historical Summary - Elevated PSA (790.93) 09-Aug-2010 to 15-Aug-2010 [facility] Lab entry only - Encounter for long-term (current) use of anticoagulants ( V58.61) 27-Jun-2010 to 28-Jun-2010 [facility] Lab entry only - Encounter for long-term (current) use of anticoagulants ( V58.61) On 26-Jun-2010 [facility] 16:21 to 22:23 Insurance Vijay Yuan; gwen guarantorMedicare [employer]
--- OUTSIDE RECORDS SUMMARY | 2017-10-22 17:49 | External Medical Summary | Continuity of Care Document ---
:1940 Author Organization [facility] Address [address] [place] [address] Phone Care Team Providers Name Role Phone [...] 12-Oct-2014 Active Comments:Medication taken as needed. DIGOXIN, 250MCG (Oral Tablet) 1 Tablet daily for 30 days Quantity: 30 {Tablet} Refills: 12 Ordered:06-Dec-2015 James Romero MD Start 06-Dec-2015 Active DIGOXIN, 250MCG (Oral Tablet) 1 Tablet daily for 90 days Quantity: 90 {Tablet} Refills: 4 Ordered:06-Dec-2015 James Romero MD Start 06-Dec-2015 Active DILTIAZEM HCL ER, 240MG (Oral Capsule [...] Comments:started on 10/17/13 after being dismissed from [facility] for kidney stone by gale [...] days Quantity: 30 {Capsule} Refills: 1 Ordered:07-Aug-2011 eRshma Chaudhry Start End 07-Aug-2011 Inactive GUAIFENESIN ER, [...] dx kidney stone from being discharged from [facility] PROMETHAZINE-DM, 6.25-15MG/5ML (Oral Syrup) 1-2 tsp Syrup Syrup every four hours, as needed for 10 days Quantity: 4 {Syrup} Refills: 1 Ordered:27-Oct-2015 Sonadavid Arielle Start 02-Jan-2013 End 27-Oct-2015 Inactive Comments:Medication taken [...] BL DRAW < 3 YRS Ordered:28-Oct-2015 FEM/JUGULAR ([id number]) Follow up in 6 months Ordered:27-Oct-2015 How to access health information Completed:27-Jul-2015 online Skin Conditions Completed:27-Jul-2015 Follow up in 2 weeks Ordered:27-Jul-2015 HIGH DOSE QUADRIVALENT INFLUENZA Ordered:25-Jul-2015 VACCINE ([id number]) ADMINISTRATION OF INFLUENZA VIRUS Ordered:25-Jul-2015 VACCINE ([id number]) Follow up in 3 months Ordered:25-Jul-2015 Follow up in 4 months Ordered: X-RAY EXAM OF KNEE, 1 OR 2 VIEWS Completed: Comments: right ([id number]) X-RAY EXAM OF BOTH KNEES, Completed: STANDING ([id number]) How to access health information Completed: online Follow up - Keep appt as scheduled Ordered:28-Oct-2014 CAROTID BILATERAL US ([id number]) Completed:14-Sep-2014 Comments: Verbal order from Dr. James Romero Follow up in 6 months Ordered:12-Aug-2014 PREVNAR 13 VALENT PNEUMOCOCCAL Completed:12-Aug-2014 VACCINE ([id number]) ADMINISTRATION OF PNEUMOCOCCAL Ordered:12-Aug-2014 CONJUGATE VACCINE (G0009) How to access health information Completed:12-Aug-2014 online Follow up in 6 months Ordered: Follow up in 2 months Ordered:26-Oct-2013 ADMIN INFLUENZA VIRUS VAC: FLU VACC Completed:26-Oct-2013 PRSV FREE INC ANTIG ([id number]) ADMINISTRATION OF INFLUENZA VIRUS Ordered:26-Oct-2013 VACCINE (G0008) Follow up in 6 months Ordered:30-Apr-2013 Follow up - Keep appt as scheduled Ordered:02-Jan-2013 Follow up in 6 months Ordered:30-Oct-2012 Follow up in 3 months Ordered:01-Aug-2012 Follow up in 3 months Ordered:01-May-2012 Follow up in 6 weeks Ordered: ADMINISTRATION OF INFLUENZA VIRUS Ordered:14-May-2011 VACCINE (G0008) FLU VACC PRSV FREE INC ANTIG Completed:14-May-2011 ([id number]) Follow up in 2 months Ordered:14-May-2011 Follow up in 2 months Ordered: Annual Eye Exam Completed:22-Nov-2008 Colonoscopy, Screening Completed: Colonoscopy, Screening Completed:06-Oct-2014 Flu Vaccine Completed:26-Oct-2013 Flu Vaccine Completed:06-Jun-2012 Comments: jc Flu Vaccine Completed:14-May-2011 Comments: high dose Flu [...] Site: Deltoid (Left); high dose Lot #: [id number] Influenza, preserv. free, enhanced immunogncty, IM Administered on:2013 Comments: Site: Deltoid (Left) Lot #: [id number] Pneumococcal conjugate vaccine, 13 valent, IM Administered on:12-Aug-2014 Comments: Site: Deltoid (Left) Lot #: [id number] Social History Name Dates Details Tobacco use: [...] Comments: The left neck Final 10:36 SINGLE (46967) lesion was removed and also the left [...] not sent to pathology. 10:35 PUNCH BIOPSY (60590) Comments: After Final FIRST BIOPSY cleansing the [...] have a artifical heart valve? No ([facility]) (12966) 9. Saturday Dosage Repeat mg (Normal) 8. [...] Charge[i], Protime & INR, PSA 16:21 ANTIGEN) (62810) PSA 6.00 ng/mL (Abnormal) Range: 0.00-4.00 16:21 PT (PROTHROMBIN TIME) Comments: Does patient have a artifical heart valve? No ([facility] [place] [place]) (48312) 8. Saturday Dosage 5.0 mg (Normal) 9. Saturday Dosage 7.5 mg (Normal) 6. Saturday Dosage 7.5 mg (Normal) 7. Dosage 7.5 mg (Normal) 5. Saturday Dosage 5.0 mg (Normal) 4. Saturday Dosage 7.5 mg (Normal) 3. Saturday Dosage 7.5 mg (Normal) INR 2.21 (Normal) PT 24.2 s (Abnormal) Range: 9.3-11.7 16:21 Routine Venipuncture (74382) Draw Drawn (Normal) 25-Oct-2015 URIC ACID BLOOD (87806) Comments: Items in this order include : CBC, Comprehensive Metabolic Panel, CKI, Hemoglobin A1C, Uric Acid, Draw Charge[i] 11:21 Uric Acid 5.5 mg/dL (Normal) Range: 3.5-7.2 11:21 HEMOGLOBIN GLYCLATED (HGB A1C) (42235) A1C 6.2 % (Normal) Range: 4.6-6.2 Comments: High risk of diabetes. 11:21 CK (19682) Comments: Items in this order include: CBC, Comprehensive Metabolic Panel, CKI, Hemoglobin A1C, Uric Acid, Draw Charge[i] CKI 288 U/L (Normal) Range: 39-308 11:21 CMP ([id number]) Comments: Items in this order include: CBC, [...] 135-145 11:21 CBC MALE- ORDER THIS ONE! (74954) manual diff Not Indicated (Normal) mpv 9.80 [...] have a artifical heart valve? No 15:06 ([facility] [place] [place]) (98649) 9. Saturday Dosage 7.5 mg (Normal) 8. [...] order include: Draw Charge[i], Protime & INR (99793) Draw Drawn (Normal) [facility] (02533) Comments: Items in this order include: Basic [...] this order include: A COPY TO [i], PSA ANTIGEN) ([id number]) PSA 6.55 ng/mL (Abnormal) Range: 0.00-4.00 09:[address] Boswell Comments: A copy of this report will be faxed to: Bettie Boswell in this order include: A COPY TO [kyung], PSA Ordering Doctor . (Normal) 09:15 PT (PROTHROMBIN TIME) Comments: Items in this order include: Draw Charge[i], Protime & INRDoes patient have a artifical heart valve? No ([facility] [place] [place]) (54606) 8. Saturday Dosage 7.5 mg (Normal) 9. [...] order include: Draw Charge[i], Protime & INR (33116) Draw Drawn (Normal) 14-Jan-2015 PT (PROTHROMBIN TIME) Comments: Items in this order include: Draw Charge[i], Protime & INRDoes patient have a artifical heart valve? No 09:28 ([facility] [place] [place]) (54839) 9. Saturday Dosage 5.0 mg (Normal) 7. [...] order include: Draw Charge[i], Protime & INR (12512) Draw Drawn (Normal) -Oct-2014 PT (PROTHROMBIN TIME) Comments: Items in this order include: Draw Charge[i], Protime & INRDoes patient have a artifical heart valve? No 10:48 ([facility] [place] [place]) (44622) 9. Saturday Dosage 7.5 mg (Normal) 8. [...] order include: Draw Charge[i], Protime & INR (86177) Draw Drawn (Normal) 29-Nov-2014 PT (PROTHROMBIN TIME) Comments: Items in this order include: Draw Charge[i], Protime & INRDoes patient have a artifical heart valve? No 10:28 ([facility]) (93154) 9. Saturday Dosage 5.0 mg (Normal) 8. [...] order include: Draw Charge[i], Protime & INR (39778) Draw Drawn (Normal) 21-Sep-2014 PT (PROTHROMBIN TIME) Comments: Items in this order include: Draw Charge[i], Protime & INRDoes patient have a artifical heart valve? No 10:08 ([facility]) (62783) 9. Saturday Dosage 5.0 mg (Normal) 7. [...] order include: Draw Charge[i], Protime & INR (06756) Draw Drawn (Normal) 24-Aug-2014 Routine Venipuncture Comments: Items in this order include: Protime & INR, Draw Charge[i] 09:59 (26512) Draw Drawn (Normal) 09:59 PT (PROTHROMBIN TIME) Comments: Items in this order include: Protime & INR, Draw Charge[i]INR value > 3.0 given to Estella by Beny Buckley patient have a artifical heart valve? No ([facility] [place] [place]) (87447) 9. Saturday Dosage 7.5 mg (Normal) 7. [...] Panel, Hemoglobin A1C, Urine Microalbumin, CBC ONE! (28428) manual diff Not Indicated (Normal) mpv 9.60 [...] Metabolic Panel, Hemoglobin A1C, Urine Microalbumin, CBC (61633) U A:C RATIO <30 mg/g Normal Range: <30 mg/g Normal (Normal) U CREAT 200 mg/dL (Normal) Range: 10-300 U ALB 80 mg/L (Abnormal) Range: 10 mg/L 09:59 HEMOGLOBIN GLYCLATED Comments: Items in this order include: Digoxin , PSA, Basic Metabolic Panel, Hemoglobin A1C, Urine Microalbumin, CBC (HGB A1C) (01411) A1C 5.9 % (Normal) Range: 4.6-6.2 Comments: Increased risk of diabetes. 09:59 [facility] [place] [place] (16454) Comments: Items in this order include: Digoxin, [...] Panel, Hemoglobin A1C, Urine Microalbumin, CBC ANTIGEN) (91903) PSA 7.11 ng/mL (Abnormal) Range: 0.00-4.00 09:59 DIGOXIN (63034) Comments: Items in this order include: Digoxin, PSA , Basic Metabolic Panel, Hemoglobin A1C, Urine Microalbumin, CBCTime of Last Dose? 08/23/2014 8:00 AMDosage? 0.25 DIG 0.36 ng/mL (Abnormal) Range: 0.90-2.00 05-Aug-2014 PT (PROTHROMBIN TIME) Comments: Items in this order include: Draw Charge[i], Protime & INRDoes patient have a artifical heart valve? No 10:48 ([facility]) (52551) 8. Saturday Dosage 7.5 mg (Normal) 9. [...] order include: Draw Charge[i], Protime & INR (70537) Draw Drawn (Normal) 03-Jun-2014 PT (PROTHROMBIN TIME) Comments: Items in this order include: Draw Charge[i], Protime & INRDoes patient have a artifical heart valve? No 13:56 ([facility]) (47054) 9. Saturday Dosage 7.5 mg (Normal) 8. [...] order include: Draw Charge[i], Protime & INR (90748) Draw Drawn (Normal) PT (PROTHROMBIN TIME) Comments: Items in this order include: Protime & INRDoes patient have a artifical heart valve? No 14:25 ([facility] [place] [place]) (70631) 9. Saturday Dosage 5.0 mg (Normal) 8. [...] this order include: Draw Charge[i], PSA ANTIGEN) (66950) PSA 6.15 ng/mL (Abnormal) Range: 0.00-4.00 14:25 Routine Venipuncture Comments: A copy of this report will be faxed to: Bettie Boswell in this order include: Draw Charge[i], PSA (01222) Draw Drawn (Normal) HEMOGLOBIN GLYCLATED Comments: Items in this order include: Hemoglobin A1C, Draw Charge[i], Comprehensive Metabolic Panel, Uric Acid 15:06 (HGB A1C) (64463) A1C 5.7 % (Normal) Range: 4.6-6.2 15:06 CMP (60498) Comments: Items in this order include: Hemoglobin [...] (Normal) Range: 135-145 15:06 URIC ACID BLOOD (48435) Comments: Items in this order include: Hemoglobin A1C, Draw Charge[i], Comprehensive Metabolic Panel, Uric Acid Uric Acid 8.0 mg/dL (Abnormal) Range: 3.6-7.7 15:06 Routine Venipuncture Comments: Items in this order include: Hemoglobin A1C, Draw Charge[i], Comprehensive Metabolic Panel, Uric Acid (85022) Draw Drawn (Normal) -January-2014 PT (PROTHROMBIN TIME) Comments: Items in this order include: Draw Charge[i], Protime & INRDoes patient have a artifical heart valve? No 14:27 ([facility] [place] [place]) (09082) 8. Saturday Dosage 5.0 mg (Normal) 9. [...] order include: Draw Charge[i], Protime & INR (85444) Draw Drawn (Normal) 26-Oct-2013 Draw Charge[i] Comments: Items in this order include: Basic Metabolic Panel, Draw Charge[i] 17:08 Draw Drawn (Normal) 17:05 [facility] (56775) Comments: Items in this order include: Basic [...] patient have a artifical heart valve? No ([facility] [place] [place]) (39930) 9. Saturday Dosage 5.0 mg (Normal) 7. [...] order include: Draw Charge[i], Protime & INR (47698) Draw Drawn (Normal) 15-Sep-2013 PSA (PROSTATE SPECIFIC Comments: A copy of this report will be faxed to: Bettie Boswell in this order include: A COPY TO [kyung] PSAPSA allowed more than once a year due to being a Diagonistic PSA not a screening PSA 11:05 ANTIGEN) ([id number]) PSA 5.40 ng/mL (Abnormal) Range: 0.00-4.00 11:05 [...] this order include: Comprehensive Metabolic Panel, Hemoglobin [id number] Hgb A1C was ran 99 Days ago. Check by MARGARITA 10:38 (HGB A1C) (95971) A1C 5.9 % (Normal) Range: 4.6-6.2 Comments: Increased risk of diabetes. 10:38 [facility] (29847) Comments: Items in this order include: Comprehensive Metabolic Panel, Hemoglobin [id number] Hgb A1C was ran 99 Days ago. [...] patient have a artifical heart valve? No ([facility] [place] [place]) (84806) 9. Saturday Dosage 5.0 (cycle of 5,5,7.5 [...] order include: Draw Charge[i], Protime & INR (98186) Draw Drawn (Normal) 10:38 DIGOXIN (51428) Comments: Items in this order include: DigoxinTime of Last Dose? 08/06/2013 8:30 AMDosage? 0.25 mg daily DIG 0.48 ng/mL (Abnormal) Range: 0.90-2.00 30-Apr-2013 HEMOGLOBIN GLYCLATED Comments: Items in this order include: Comprehensive Metabolic Panel, CBC, Hemoglobin [id number] Hgb A1C was ran 225 Days ago. Check by ms 11:58 (HGB A1C) (05090) A1C 6.1 % (Normal) Range: 4.6-6.2 11:58 CBC MALE- ORDER THIS Comments: Items in this order include: Comprehensive Metabolic Panel, CBC, Hemoglobin [id number] Hgb A1C was ran 225 Days ago. Check by ms ONE! (03331) manual diff Not Indicated (Normal) mpv 4.88 [...] 6.15 10*3/uL (Normal) Range: 4.50-10.50 11:58 CMP (54662) Comments: Items in this order include: Comprehensive Metabolic Panel, CBC, Hemoglobin [id number] Hgb A1C was ran 225 Days ago. [...] patient have a artifical heart valve? No ([facility] [place] [place]) (32240) 4. Saturday Dosage Repeat mg (Normal) 3. Saturday Dosage 7.5 mg (Normal) 2. Saturday Dosage 5.0 mg (Normal) 1. Saturday Dosage 5.0 mg (Normal) INR 2.60 (Normal) PT 26.8 s (Abnormal) Range: 10.4-12.4 PT (PROTHROMBIN TIME) Comments: Items in this order include: Draw Charge[i], Protime & INRDoes patient have a artifical heart valve? No 15:12 ([facility] [place] [place]) (82448) 5. Dosage Repeat mg (Normal) 4. Saturday Dosage 5.0 mg (Normal) 3. Saturday Dosage 5.0 mg (Normal) 2. Saturday Dosage 7.5 mg (Normal) INR 2.31 (Normal) PT 24.0 s (Abnormal) Range: 10.4-12.4 15:12 Routine Venipuncture Comments: Items in this order include: Draw Charge[i], Protime & INR (55843) Draw Drawn (Normal) PSA (PROSTATE SPECIFIC Comments: A copy of this report will be faxed to: Bettie Boswell in this order include: PSA, Draw Charge[i]PSA allowed more than once a year due to being a Diagonistic PSA not a screening PSA 10:00 ANTIGEN) (43219) PSA 5.60 ng/mL (Abnormal) Range: 0.00-4.00 10:00 [...] patient have a artifical heart valve? No ([facility] [place] [place]) (05571) 3. Saturday Dosage Repeat mg (Normal) 2. Saturday Dosage 7.5 mg (Normal) 1. Saturday Dosage 5.0 mg (Normal) INR 2.64 (Normal) PT 27.2 s (Abnormal) Range: 10.4-12.4 10:09 Routine Venipuncture Comments: Items in this order include: Draw Charge[i], Protime & INR (90897) Draw Drawn (Normal) 16-Dec-2012 PT (PROTHROMBIN TIME) Comments: Items in this order include: Draw Charge[i], Protime & INRDoes patient have a artifical heart valve? No 10:46 ([facility]) (14024) 4. Saturday Dosage Repeat mg (Normal) 3. Saturday Dosage 5.0 mg (Normal) 2. Saturday Dosage 7.5 mg (Normal) INR 2.13 (Normal) PT 22.2 s (Abnormal) Range: 10.4-12.4 10:46 Routine Venipuncture Comments: Items in this order include: Draw Charge[i], Protime & INR (31019) Draw Drawn (Normal) 26-Nov-2012 Routine Venipuncture Comments: Items in this order include: Protime & INR, Draw Charge[i] 15:05 (26600) Draw Drawn (Normal) 15:05 PT (PROTHROMBIN TIME) Comments: Items in this order include: Protime & INR, Draw Charge[i]Does patient have a artifical heart valve? No ([facility] [place] [place]) (83792) 4. Saturday Dosage 5.0 Repeat mg (Normal) 3. Saturday Dosage 5.0 mg (Normal) 2. Saturday Dosage 7.5 mg (Normal) INR 1.34 (Normal) PT 14.4 s (Abnormal) Range: 10.4-12.4 30-Oct-2012 PT (PROTHROMBIN TIME) Comments: Items in this order include: Draw Charge[i], Protime & INRINR value > 3.0 given to BW by Froy Chávez patient have a artifical heart valve? No 10:38 ([facility]) (76228) 7. Saturday Dosage 7.5 mg (Normal) 6. [...] order include: Draw Charge[i], Protime & INR (01411) Draw Drawn (Normal) 11:33 BMP Comments: Items [...] Dose? 10/29/2012 8:00 PMDosage? 0.25 mg Daily (85983) DIG 1.64 ng/mL (Normal) Range: 0.90-2.00 14-Oct-2012 PSA (PROSTATE SPECIFIC Comments: A copy of this report will be faxed to: Bettie Boswell in this order include: Draw Charge[i], Protime & INR, PSAPSA allowed more than once a year due to being a Diagonistic PSA not a screening PSA 10:25 ANTIGEN) (38738) PSA 8.11 ng/mL (Abnormal) Range: 0.00-4.00 10:25 PT (PROTHROMBIN TIME) Comments: PSA allowed more than once a year due to being a Diagonistic PSA not a screening PSACoumadin dosage=5,5,5,5,7.5 repeatDoes patient have a artifical heart valve? No ([facility] [place] [place]) (11473) 7. Saturday Dosage 7.5 mg (Normal) 6. [...] a Diagonistic PSA not a screening PSA (32799) Draw Drawn (Normal) 12-Sep-2012 PT (PROTHROMBIN TIME) Comments: Items in this order include: Draw Charge[i], Protime & INRDoes patient have a artifical heart valve? No 09:16 ([facility]) (83793) 6. Saturday Dosage Repeat mg (Normal) 5. Dosage 7.5 mg (Normal) 4. Saturday Dosage 5.0 mg (Normal) 3. Saturday Dosage 5.0 mg (Normal) 2. Saturday Dosage 5.0 mg (Normal) 1. Saturday Dosage 5.0 mg (Normal) INR 2.48 (Normal) PT 25.7 s (Abnormal) Range: 10.4-12.4 09:16 Routine Venipuncture Comments: Items in this order include: Draw Charge[i], Protime & INR (72983) Draw Drawn (Normal) 18-Aug-2012 PT (PROTHROMBIN TIME) Comments: Items in this order include: Protime & INRDoes patient have a artifical heart valve? No 11:44 ([facility]) (14248) 7. Saturday Dosage 5.0 mg (Normal) 6. [...] Days ago. Check by KB (HGB A1C) (12853) A1C 6.2 % (Normal) Range: 4.6-6.2 Comments: High risk of diabetes. 31-Jul-2012 PT (PROTHROMBIN TIME) Comments: Items in this order include: Draw Charge[i], Protime & INRINR value > 3.0 given to Estella by Beny Buckley patient have a artifical heart valve? No 13:32 ([facility] [place] [place]) (77813) 7. Saturday Dosage 5.0 mg (Normal) 6. [...] order include: Draw Charge[i], Protime & INR (34107) Draw Drawn (Normal) 23-Jun-2012 PSA (PROSTATE SPECIFIC Comments: A copy of this report will be faxed to: Bettie Boswell in this order include: Draw Charge[i], Protime & INR, PSAPSA allowed more than once a year due to being a Diagonistic PSA not a screening PSA 15:50 ANTIGEN) (05186) PSA 8.05 ng/mL (Abnormal) Range: 0.00-4.00 15:50 PT (PROTHROMBIN TIME) Comments: A copy of this report will be faxed to: Bettie Boswell in this order include: Draw Charge[i], Protime & INR , PSAPSA allowed more than once a year due to being a Diagonistic PSA not a screening ([facility] [place] [place]) (41615) PSADoes patient have a artifical heart valve? [...] a Diagonistic PSA not a screening PSA (39464) Draw Drawn (Normal) 13-May-2012 Draw Charge[i] Comments: [...] results to dr. hema boswell 14:28 ANTIGEN) (65832) PSA 16.45 ng/mL (Abnormal) Range: 0.00-4.00 14:28 PT (PROTHROMBIN TIME) Comments: Coumadin Dosage=5,5,5,7.5 Repeat. Took 7.5 on 04-27-12. ([facility] [place] [place] (92856) 5. Dosage 7.5 Repeat mg (Normal) 4. Saturday Dosage 5.0 mg (Normal) 3. Saturday Dosage 5.0 mg (Normal) 2. Saturday Dosage 5.0 mg (Normal) 1. Saturday Dosage 7.5 mg (Normal) INR 2.17 (Normal) PT 22.7 s (Abnormal) Range: 10.4-12.4 14:28 Routine Venipuncture (22565) Draw Drawn (Normal) 13-May-2012 PSA (PROSTATE SPECIFIC Comments: A copy of this report will be faxed to: Bettie Boswell in this order include: PSA, Draw Charge[i]PSA allowed more than once a year due to being a Diagonistic PSA not a screening PSA 09:20 ANTIGEN) (11302) PSA 11.30 ng/mL (Abnormal) Range: 0.00-4.00 87-Rujd-4700 TSH (THYROID Comments: Items in this order include: TSH 16:40 STIMULATING HORMONE) (30895) TSH 1.36 uIU/ml (Normal) Range: 0.34-5.60 14:50 PT (PROTHROMBIN TIME) Comments: Items in this order include: Draw Charge[i], Basic Metabolic Panel, Hemoglobin A1C, Protime & INRLast Hbg A1C was ran 218 Days ago. Check by DL ([facility] [place] [place]) (18564) 5. Dosage Repeat mg (Normal) 4. Saturday [...] ran 218 Days ago. Check (HGB A1C) (81462) by DLplease draw enough blood so if [...] ran 218 Days ago. Check by DL (17983) Draw Drawn (Normal) DIGOXIN, DRUG ASSAY Comments: Items in this order include: CBC, Comprehensive Metabolic Panel, CKI, Digoxin, Draw Charge[i] 09:08 (91264) DIG 0.38 ng/mL (Abnormal) Range: 0.90-2.00 09:08 CK Comments: Items in this order include: CBC, Comprehensive Metabolic Panel, CKI, Digoxin, Draw Charge[i] CKI 143 U/L (Normal) Range: 39-308 09:08 CMP (92672) Comments: Items in this order include: CBC, [...] Metabolic Panel, CKI, Digoxin, Draw Charge[i] ONE! (15159) manual diff Not Indicated (Normal) mpv 6.84 [...] order include: Protime & INR, Draw Charge[i] (22748) Draw Drawn (Normal) 16:45 PT (PROTHROMBIN TIME) Comments: Items in this order include: Protime & INR, Draw Charge[i]Coumadin doasage=5,5,7.5 Repeat ([facility] [place] [place]) (97937) 7. Saturday Dosage 5.0 mg (Normal) 6. [...] order include: Draw Charge[i], PSA 11:11 ANTIGEN) (56350) PSA 6.92 ng/mL (Abnormal) Range: 0.00-4.00 11:11 Routine Venipuncture Comments: A copy of this report will be faxed to: Bettie Boswell in this order include: Draw Charge[i], PSA ([id number]) Draw Drawn (Normal) 17-Oct-2011 Routine Venipuncture 10:18 (75876) Draw Drawn (Normal) 10:18 TESTOSTERONE, FREE, Comments: Items in this order include: Protime & INR, Draw Charge[i], TESTOSTERONE, FREE, BIOAVAILABLE, AND TOTAL, LC/MS/ MSTesting performed at: [facility] [place], [address] [address], [place], [address], General Internal Medicine Physician: Michael Chávez [facility] TOTAL, LC/MS/MS ALBUMIN,SERUM 4.4 [...] and benefits counseling. 10:18 PT (PROTHROMBIN TIME) ([facility] [place] [place]) (10236) 7. Saturday Dosage 5.0 mg (Normal) 6. [...] Panel, Hemoglobin A1C, Draw Charge[i] (HGB A1C) (27068) A1C 6.1 % (Normal) Range: 4.6-6.2 13:29 [...] (Normal) Range: 135-145 13:29 DIGOXIN, DRUG ASSAY (61082) DIG 0.85 ng/mL (Abnormal) Range: 0.90-2.00 07-Aug-2011 TESTOSTERONE, FREE, Comments: Items in this order include: TESTOSTERONE, FREE, BIOAVAILABLE, AND TOTAL, LC/MS/MSTesting performed at: [place], [address] [address], [place] , [address], [place] 12:53 WEAKLY BOUND AND TOTAL ratory Director: Michael Chávez MD.[facility] (52669) ALBUMIN,SERUM 4.4 g/dL (Normal) Range: 3.6-5.1 SEX [...] INR, Draw Charge[i]no change in coumadin dose ([facility] [place] [place]) (20362) 7. Saturday Dosage 7.5 mg (Normal) 6. [...] Metabolic Panel, Protime & INR, Draw Charge[i] ([facility] [place] [place]) (46619) 7. Saturday Dosage 5.0 mg (Normal) 5. [...] Boswell in this order include: PSA ANTIGEN) (20269) PSA 5.95 ng/mL (Abnormal) Range: 0.00-4.00 CBC-MALE- ORDER THIS Comments: Items in this order include : Hemoglobin A1C, Comprehensive Metabolic Panel, CBC 11:56 ONE! (70838) manual diff Not Indicated (Normal) mpv 7.65 [...] 6.24 10*3/uL (Normal) Range: 4.50-10.50 11:56 CMP (75204) Comments: Items in this order include: Hemoglobin [...] this order include: Digoxin, Draw Charge[i] 15:17 (58825) DIG 1.18 ng/mL (Normal) Range: 0.90-2.00 HEMOGLOBIN GLYCLATED Comments: Items in this order include: Hemoglobin A1C, Comprehensive Metabolic Panel, CBC 11:56 (HGB A1C) (72448) A1C 6.6 % (Abnormal) Range: 4.6-6.2 Comments: Consistent with diabetes. 13:48 PT (PROTHROMBIN TIME) Comments: change to coumadin 5mg x 2 day then 7.5mg x1 repeat the cycle; Items in this order include: Protime & INR, Draw Charge[i]cyclechange to coumadin 5mg x 2 day then 7.5mg x1 repeat the ([facility] [place] [place]) (60858) 6. Saturday Dosage 7.5 mg (Normal) 7. Saturday Dosage 5.0 mg (Normal) 5. Dosage 5.0 mg (Normal) 4. Saturday Dosage 5.0 mg (Normal) 2. Quinton Dosage 5.0 mg (Normal) 3. Saturday Dosage 7.5 mg (Normal) 1. Willie Dosage 5.0 mg (Normal) INR 1.55 (Normal) PT 15.2 s (Abnormal) Range: 10.4-12.4 PSA (PROSTATE SPECIFIC Comments: A copy of this report will be faxed to: Bettie Boswell in this order include: Protime & INR, PSA, Draw Charge[i] 09:43 ANTIGEN) (52256) PSA 5.84 ng/mL (Abnormal) Range: 0.00-4.00 09:43 PT (PROTHROMBIN TIME) Comments: no change in coumadin; no change in coumadin ([facility] [place] [place]) (64546) 7. day Dosage 7.5 mg (Normal) 6. Saturday Dosage 5.0 mg (Normal) 5. Dosage 7.5 mg (Normal) 4. Saturday Dosage 5.0 mg (Normal) 3. Saturday Dosage 5.0 mg (Normal) 1. Saturday Dosage 5.0 mg (Normal) 2. Saturday Dosage 7.5 mg (Normal) INR 3.45 (Normal) PT 32.9 s (Abnormal) Range: 10.4-12.4 23-Nov-2010 PT (PROTHROMBIN TIME) 10:03 ([facility] [place], [place]) ([id number]) 6. Saturday Dosage 7.5 mg (Normal) 7. Saturday Dosage 5 mg (Normal) 1. Saturday Dosage 5 mg (Normal) 2. Saturday Dosage 7.5 mg (Normal) 3. Saturday Dosage 5 mg (Normal) 4. Saturday Dosage 7.5 mg (Normal) 5. Dosage 5 mg (Normal) INR 2.16 (Normal) PT 21.0 s (Abnormal) Range: 10.4-12.4 19-Oct-2010 PT (PROTHROMBIN TIME) 15:16 ([facility] [place] [place]) (35938) 6. Joao Dosage 5 mg (Normal) 7. Saturday Dosage 7.5 mg (Normal) 3. Saturday Dosage 7.5 mg (Normal) 4. Saturday Dosage 5 mg (Normal) 5. Dosage 7.5 mg (Normal) 1. Willie Dosage 7.5 mg (Normal) 2. Quinton Dosage 5 mg (Normal) INR 2.13 (Normal) PT 20.7 s (Abnormal) Range: 10.4-12.4 12-Sep-2010 PT (PROTHROMBIN TIME) 11:03 ([facility] [place] [place]) (01641) INR 2.57 (Normal) PT (PROTHROMBIN TIME) 24.8 s (Abnormal) Range: 11.5-13.5 22-Aug-2010 PT (PROTHROMBIN TIME) 13:41 ([facility] [place] [place]) (90334) 09-Aug-2010 PSA, MEDICARE (G0103) Comments: please fax to dr hema boswell 09:54 PSA (Medicare) 4.83 ng/mL (Abnormal) Range: 0 - 4 09:34 PT (PROTHROMBIN TIME) ([facility] [place] [place]) (04100) INR 2.68 (Normal) PT (PROTHROMBIN TIME) 25.8 s (Abnormal) Range: 11.5-13.5 27-Jun-2010 PT (PROTHROMBIN TIME) 08:38 ([facility] [place] [place]) (74508) 26-Jun-2010 PT (PROTHROMBIN TIME) 16:21 ([facility] [place] [place]) (37004) INR 1.89 (Normal) PT (PROTHROMBIN TIME) 18.4 s (Abnormal) Range: 11.5-13.5 Treatment Plan LIPID PANEL (47102); Ordered: 10/28/2015; Note: Verbal order from Dr. [...] problems with his a-fib at todays visit. 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 He said he is having quite a bit of pain with the nodule and some occasional drainage. Seems to be recurrent for him. 09:10 to 09:52 [facility] Office Visit - PG (pyogenic granuloma) [...] nail problems": He continues with his usual medications.[facility] Lab entry only - Encounter for long-term (current) use of anticoagulants ( V58.61 | Z79.01) On 07-Jul-2015 [facility] 16:55 to 16:56 Office Visit - Benign essential hypertension (401.1 | I10), Health education ( V65.40 | Z71.9), Bilateral knee pain (719.46 | M25.561, M25.562), Diabetes mellitus (250.00 | E11.9), Fibrillation, atrial ( to 427.31), Encounter for long-term (current) use of anticoagulants (V58.61 | Z79.01) Encounter Reason: Hypertension - Note for "Hypertension": Here for a 6 month follow up with Dr. Nneak M.D. states doing fine except for my bilateral knees pain , they hurt worse to bend . also unable to walk up the stairs and I have to crawl. [facility] Historical Summary On [facility] 12:33 to 12:36 Lab entry only - Encounter for long-term (current) use of anticoagulants ( V58.61 | Z79.01) On [facility] 17:37 to 17:39 Lab entry only - Elevated PSA (790.93) On [facility] 10:10 to 10:11 Lab entry only - Encounter for long-term (current) use of anticoagulants ( V58.61 | Z79.01), Encounter for long-term (current) use of anticoagulants ( V58.61 | Z79.01) On 14-Jan-2015 [facility] 14:52 to 14:53 Lab entry only - Encounter for long-term (current) use of anticoagulants ( V58.61 | Z79.01), Encounter for long-term (current) use of anticoagulants ( V58.61 | Z79.01) On 29-Nov-2014 [facility] 12:31 to 15:09 Medication Entry - Diabetes mellitus (250.00 | E11.9) On 12-Nov-2014 [facility] 11:46 to 11:53 Medication Entry - Cellulitis, leg (682.6 | L03.119) On 11-Nov-2014 [facility] 09:48 to 10:00 Office Visit - [...] care": He feels things are improved.[facility] Historical Summary On 27-Oct-2014 [facility] 15:03 to 15:08 Lab entry only - Fibrillation, atrial (427.31), Encounter for long-term ( current) use of anticoagulants (V58.61 | Z79.01) On 18-Oct-2014 [facility] 17:08 to 17:09 Medication Entry - Gout (274.9 | M10.9) On 12-Oct-2014 [facility] 16:17 to 16:22 Lab entry only - Encounter for long-term (current) use of anticoagulants ( V58.61 | Z79.01) On 21-Sep-2014 [facility] 15:31 to 15:33 Radiology Visit - Carotid stenosis (433.10 | I65.29) On 14-Sep-2014 [facility] 09:33 to 09:36 Lab entry only - Encounter for long-term (current) use of anticoagulants ( V58.61 | Z79.01) On 24-Aug-2014 [facility] 16:31 to 16:34 Office Visit - Health education (V65.40 | Z71.9), Prevnar (PCV13)FOR MEDICARE USE ONLY Pneumovax injection (V03.82) 84158, Encounter for long-term ( current) use of [...] He mentions the "discoloration" of ankles.[facility] Historical Summary On 11-Aug-2014 [facility] 16:16 to 16:19 Lab entry only - Fibrillation, atrial (427.31), Encounter for long-term ( current) use of anticoagulants (V58.61 | Z79.01) On 06-Aug-2014 [facility] 16:41 to 16:43 Medication Entry - Benign essential hypertension (401.1 | I10) On 21-Jun-2014 [facility] 11:12 to 11:14 Lab entry only - Encounter for long-term (current) use of anticoagulants ( V58.61 | Z79.01) On 03-Jun-2014 [facility] 16:13 to 16:15 Lab entry only - Encounter for long-term (current) use of anticoagulants ( V58.61 | Z79.01) On [facility] 13:22 to 13:23 Lab entry only - Elevated PSA (790.93), Encounter for long-term (current) use of anticoagulants (V58.61 | Z79.01) On [facility] 14:27 to 14:28 Office Visit - [...] the morning and on stairs. [facility] Historical Summary On 28-Dec-2013 [facility] 12:26 to 12:29 Medication Entry - Encounter for long-term (current) use of anticoagulants ( V58.61 | Z79.01), Diabetes mellitus (250.00 | E11.9), Fibrillation, atrial ( 427.31) On 03-Nov-2013 [facility] 09:01 to 11:53 Medication Entry - Fibrillation, atrial (427.31), Diabetes mellitus (250.00 | E11.9) On 30-Oct-2013 [facility] 15:55 to 16:00 Lab entry only - Encounter for long-term (current) use of anticoagulants ( V58.61 | Z79.01) On 27-Oct-2013 [facility] 17:57 to 17:59 Office Visit - [...] M.D. after being in the hospital at [facility] on 10/16/13 & discharged on 10/17/13 dx jasmeet diaz, inr was done prior to visit.) . Note for "Transition into care": He passed a kidney stone a week ago.[facility] Historical Summary On 23-Oct-2013 [facility] 14:42 to 14:45 Lab entry only - Encounter for long-term (current) use of anticoagulants ( V58.61 | Z79.01) On 20-Oct-2013 [facility] 16:31 to 16:33 Lab entry only - Encounter for long-term (current) use of anticoagulants ( V58.61 | Z79.01) On 16-Sep-2013 [facility] 10:14 to 10:15 Lab entry only - Elevated PSA (790.93) On 15-Sep-2013 [facility] 11:11 to 11:12 Lab entry only - Encounter for long-term (current) use of anticoagulants ( V58.61 | Z79.01) On 07-Aug-2013 [facility] 14:32 to 14:33 Lab entry only - Benign essential hypertension (401.1 | I10), Diabetes mellitus (250.00 | E11.9) On 07-Aug-2013 [facility] 11:18 to 11:19 Lab entry only - Encounter for long-term (current) use of anticoagulants ( V58.61 | Z79.01) On 01-May-2013 [facility] 10:33 to 10:38 Office Visit - [...] miss some meds while he traveled.[facility] Historical Summary On 29-Apr-2013 [facility] 11:46 to 11:49 Lab entry only - Encounter for long-term (current) use of anticoagulants ( V58.61 | Z79.01) On [facility] 16:39 to 16:42 Lab entry only - Encounter for long-term (current) use of anticoagulants ( V58.61 | Z79.01) On [facility] 19:40 to 19:42 Lab entry only - Elevated PSA (790.93) On [facility] 12:03 to 12:07 Office Visit - [...] He has not had an antibiotic.[facility] Lab entry only - Encounter for long-term (current) use of anticoagulants ( V58.61 | Z79.01) On 16-Dec-2012 [facility] 18:21 to 18:23 Lab entry only - Encounter for long-term (current) use of anticoagulants ( V58.61 | Z79.01) On 27-Nov-2012 [facility] 16:52 to 16:53 Lab entry only - Encounter for long-term (current) use of anticoagulants ( V58.61) On 26-Nov-2012 [facility] 15:04 to 15:05 Office Visit - [...] in the morning and on stairs.[facility] Historical Summary On 29-Oct-2012 [facility] 16:15 to 16:17 Lab entry only - Encounter for long-term (current) use of anticoagulants ( V58.61) On 15-Oct-2012 [facility] 09:51 to 09:57 Lab entry only - Encounter for long-term (current) use of anticoagulants ( V58.61), Elevated PSA (790.93) On 14-Oct-2012 [facility] 10:25 to 10:26 Lab entry only - Encounter for long-term (current) use of anticoagulants ( V58.61) On 12-Sep-2012 [facility] 13:44 to 13:45 Medication Entry - Edema (782.3), Fibrillation, atrial (427.31) On 20-Aug-2012 [facility] 11:10 to 11:12 Medication Entry - Fibrillation, atrial (427.31), Edema (782.3) On 19-Aug-2012 [facility] 17:29 to 18:11 Medication Entry - Encounter for long-term (current) use of anticoagulants ( V58.61), Fibrillation, atrial (427.31), Diabetes mellitus (250.00) On 2011 [facility] 17:44 to 17:53 Office Visit - 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), Inflamed seborrheic keratosis (702.11), Hyperglycemia (790.29), Encounter for long-term (current) use of anticoagulants (V58.61), Fibrillation, atrial (427.31) On 01-Aug-2012 Encounter Reason: Follow up for chronic condition - The patient feels well with minor complaints (here today for a 3 month follow up with Dr. Romero ) .[facility] 09:34 to 10:39 Medication Entry - Encounter for long-term (current) use of anticoagulants ( V58.61) On 31-Jul-2012 [facility] 18:21 to 18:22 Historical Summary On 31-Jul-2012 [facility] 11:40 to 11:42 Lab entry only - Encounter for long-term (current) use of anticoagulants ( V58.61) On 23-Jun-2012 [facility] 18:47 to 18:52 Lab entry only - Elevated PSA (790.93), Encounter for long-term (current) use of anticoagulants (V58.61) On 23-Jun-2012 [facility] 15:48 to 15:53 Office Visit - Adjustment disorder with depressed mood (309.0), Encounter for long-term (current) use of anticoagulants (V58.61), Elevated PSA (790.93) On Encounter Reason: Follow up for chronic condition - The patient feels well with minor complaints (here for a 6 week follow up visit do to a new medication but did not start the medication).[facility] 11:19 to 13: 39 Historical Summary On 30-Apr-2012 [facility] 11:50 to 11:52 Lab entry only - Encounter for long-term (current) use of anticoagulants ( V58.61) On 28-Apr-2012 [facility] 17:23 to 17:26 Lab entry only - Elevated PSA (790.93), Encounter for long-term (current) use of anticoagulants (V58.61) On 28-Apr-2012 [facility] 14:19 to 14:22 Office Visit - [...] lab done prior to appt today).[facility] Lab entry only - Edema (782.3), Hyperglycemia (790.29), Encounter for long- term (current) use of anticoagulants (V58.61) On [facility] 11:06 to 11:14 Lab entry only - Elevated PSA (790.93), Fibrillation, atrial (427.31), Edema ( 782.3) On [facility] 09:02 to 09:05 Lab entry only - Encounter for long-term (current) use of anticoagulants ( V58.61) On [facility] 16:44 to 16:45 Medication Entry On 26-Oct-2011 [facility] 13:30 to 13:32 Lab entry only - Elevated PSA (790.93) On 23-Oct-2011 [facility] 11:01 to 11:04 Lab entry only - Encounter for long-term (current) use of anticoagulants ( V58.61), Low testosterone (257.2) On 17-Oct-2011 [facility] 10:15 to 10:17 Medication Entry - Fibrillation, atrial (427.31) On 04-Oct-2011 [facility] 09:26 to 09:38 Medication Entry - Fibrillation, atrial (427.31), Edema (782.3), Encounter for long-term (current) use of anticoagulants (V58.61), Benign prostatic hypertrophy without lower urinary tract symptoms (LUTS) (600.00) On 02-Oct-2011 [facility] 18:56 to 19:02 Medication Entry - Encounter for long-term (current) use of anticoagulants ( V58.61), Fibrillation, atrial (427.31), Edema (782.3) On 26-Sep-2011 [facility] 11:06 to 11:11 Medication Entry - Fibrillation, atrial (427.31), Encounter for long-term ( current) use of anticoagulants (V58.61) On 24-Sep-2011 [facility] 10:41 to 10:49 Lab entry only - Low testosterone (257.2) On 10-Aug-2011 [facility] 13:03 to 13:05 Lab entry only - Hyperglycemia (790.29), Encounter for long-term (current) use of anticoagulants (V58.61), Fibrillation, atrial (427.31) On 08-Aug-2011 [facility] 13:27 to 13:29 Office Visit - [...] be going through "male menopause." [facility] Historical Summary On 06-Aug-2011 [facility] 12:22 to 12:24 Medication Entry - Fibrillation, atrial (427.31) On 05-Jun-2011 [facility] 08:54 to 08:59 Lab entry only - Encounter for long-term (current) use of anticoagulants ( V58.61) On 15-May-2011 [facility] 18:48 to 18:50 Office Visit - [...] diabetes, hypertension, cardiovascular disorder and other.[facility] Medication Entry - Benign prostatic hypertrophy without lower urinary tract symptoms (LUTS) (600.00) On 19-Apr-2011 [facility] 08:49 to 08:51 Lab entry only - Benign prostatic hypertrophy without lower urinary tract symptoms (LUTS) (600.00) On 10-Apr-2011 [facility] 15:15 to 15:19 Office Visit - [...] seeing dr. boswell the middle of ). [facility] Historical Summary On [facility] 16:05 to 16:18 Lab entry only - Encounter for long-term (current) use of anticoagulants ( V58.61) On [facility] 17:34 to 17:36 Lab entry only - Encounter for long-term (current) use of anticoagulants ( V58.61), Elevated PSA (790.93) On [facility] 09:42 to 09:43 Lab entry only - Encounter for long-term (current) use of anticoagulants ( V58.61) On 24-Nov-2010 [facility] 08:55 to 08:57 Lab entry only - Encounter for long-term (current) use of anticoagulants ( V58.61) On 20-Oct-2010 [facility] 14:42 to 14:46 Historical Summary - Encounter for long-term (current) use of anticoagulants ( V58.61) On 13-Sep-2010 [facility] 10:53 to 10:59 Historical Summary 12-Sep-2010 to 13-Sep-2010 [facility] Lab entry only - Encounter for long-term (current) use of anticoagulants ( V58.61) On 14-Aug-2010 [facility] 17:44 to 17:49 Historical Summary - Elevated PSA (790.93) 09-Aug-2010 to 15-Aug-2010 [facility] Lab entry only - Encounter for long-term (current) use of anticoagulants ( V58.61) 27-Jun-2010 to 28-Jun-2010 [facility] Lab entry only - Encounter for long-term (current) use of anticoagulants ( V58.61) On 26-Jun-2010 [facility] 16:21 to 22:23 Insurance Vijay Yuan; a guarantorMedicare [employer] [facility] [employer]
--- OUTSIDE RECORDS SUMMARY | 2017-10-22 17:50 | External Medical Summary | Referral Summary ---
:1940 Author Organization [facility] Address [address] [place] [address] [place] [id number] Care Team Providers Name Role Phone Blayne Blake Primary Care Physician Encounter VC Date(s): 03/08/16 - 03/08/16 [facility] [address] [place] [phone] Discharge Diagnosis: Inclusion cyst Discharge Diagnosis: Chronic anticoagulation Discharge Disposition: 01-Home or Self Care Attending Physician: Blayne Blake DO Admitting Physician: Blayne Blake DO Vital Signs Most recent to oldest [Reference Range]: 1 Temperature Tympanic [36.6-38.1 degC] 36.4 degC *LOW* (03/08/16 9:17 AM) Peripheral Pulse Rate [60-100 bpm] 80 bpm (03/08/16 9:17 AM) Blood Pressure [90-140/60-90 mmHg] 118/64 mmHg (03/08/16 9:17 AM) Problem List No data available for [...] day), 0 Refill(s) Start Date: 01/04/16 Status: Ordered Results Chemistry Most recent to oldest [Reference Range]: 1 PSA (wihout Reflex Free) [0.0-6.5 ng/mL] 7.9 ng/mL 1 *HI* (03/08/16 10:17 AM) 1Result Comment: AUA PSA Best Practice Guidelines: Age-Adjusted PSA Values by Ethnic Group Age Range Asians - Caucasians Americans 40-49 0-2.0 0-2.0 0-2.5 50-59 0-3.0 0-4.0 0-3.5 60-69 0-4.0 0-4.5 0-4.5 70-79 0-5.0 0-5.5 0-6.5 Immunizations Vaccine Date Refusal Reason zoster vaccine live 03/08/16 Procedures Procedure Date Related Diagnosis Body Site Excision, other benign lesion including margins, 03/08/16 except skin tag (unless listed elsewhere), face, ears, eyelids, nose, lips, mucous membrane; excised diameter 0.5 cm or less Colonoscopy1 10/06/14 1Normal study. Repeat in 10 yrs Social History Social History Type Response Smoking Status Never smoker Assessment and Plan Extracted from: Title: Office Visit Note Author: Blayne Blake DO Date: 03/08/16 Assessment/Plan 1.Inclusion cyst 1. Since the lesion is affecting his field of vision, excision recommended to which he agreed. Procedure: Excision of inclusion cyst Indication: Benign lesion affecting field of vision Location: Right upper eyelid at the eyelashes border Medication: One percent lidocaine without epinephrine Description: Following written informed consent, the patient was taken to the procedure room. The area was cleansed and local anesthesia was achieved using one percent lidocaine without epinephrine. Following loca l anesthesia, a superficial horizontal excision was made with a 15 blade scalpel. The encapsulated lesion was removed without difficulty. Good hemostasis was assured prior to dismissal, there was no need for dressing, wound care instructions provided. Patient tolerated treatment well. Ordered: Exc Shashank Les Face Ear Nose 0.5cm or less 92111 Office Visit Level 3 Est 46300 2.Chronic anticoagulation 1. Recommended that he check with his insurance as to which anticoagulation therapy is the preferred drug on his insurance plan. If they pay for Xarelto or Pradaxa be tter than Eliquis then my recommendation would be to change to one of these other medications. He will call and let us know which would be the preferred drug. Ordered: Office Visit Level 3 Est 91473 History of elevated PSA At the request of his urologist, PSA was ordered. Once we get results we will discuss with the patient. Ordered: Office Visit Level 3 Est 74491 Prostate Specific Antigen
--- OUTSIDE RECORDS SUMMARY | 2017-10-22 17:50 | External Medical Summary | Continuity of Care Document ---
:1940 Author Organization [facility] Address [address] [place] [address] Phone Care Team Providers Name Role Phone [...] days Quantity: 90 {Capsule} Refills: 4 Ordered:02-Oct-2011 aJmes Romero MD Start 02-Oct-2011 Active LISINOPRIL, 10MG [...] Comments:started on 10/17/13 after being dismissed from [facility] for kidney stone by cac CITALOPRAM HYDROBROMIDE, [...] dx kidney stone from being discharged from [facility] PROMETHAZINE-DM, 6.25-15MG/5ML (Oral Syrup) 1-2 tsp Syrup [...] BL DRAW < 3 YRS Ordered:28-Oct-2015 FEM/JUGULAR ([id number]) Follow up in 6 months Ordered:27-Oct-2015 How to access health information Completed:27-Jul-2015 online Skin Conditions Completed:27-Jul-2015 Follow up in 2 weeks Ordered:27-Jul-2015 HIGH DOSE QUADRIVALENT INFLUENZA Ordered:25-Jul-2015 VACCINE ([id number]) ADMINISTRATION OF INFLUENZA VIRUS Ordered:25-Jul-2015 VACCINE ([id number]) Follow up in 3 months Ordered:25-Jul-2015 Follow up in 4 months Ordered: X-RAY EXAM OF KNEE, 1 OR 2 VIEWS Completed: Comments: right ([id number]) X-RAY EXAM OF BOTH KNEES, Completed: STANDING (93710) How to access health information Completed: online Follow up - Keep appt as scheduled Ordered:28-Oct-2014 CAROTID BILATERAL US ([id number]) Completed:14-Sep-2014 Comments: Verbal order from Dr. James Romero Follow up in 6 months Ordered:12-Aug-2014 PREVNAR 13 VALENT PNEUMOCOCCAL Completed:12-Aug-2014 VACCINE ([id number]) ADMINISTRATION OF PNEUMOCOCCAL Ordered:12-Aug-2014 CONJUGATE VACCINE (G0009) How to access health information Completed:12-Aug-2014 online Follow up in 6 months Ordered: Follow up in 2 months Ordered:26-Oct-2013 ADMIN INFLUENZA VIRUS VAC: FLU VACC Completed:26-Oct-2013 PRSV FREE INC ANTIG ([id number]) ADMINISTRATION OF INFLUENZA VIRUS Ordered:26-Oct-2013 VACCINE (G0008) Follow up in 6 months Ordered:30-Apr-2013 Follow up - Keep appt as scheduled Ordered:02-Jan-2013 Follow up in 6 months Ordered:30-Oct-2012 Follow up in 3 months Ordered:01-Aug-2012 Follow up in 3 months Ordered:01-May-2012 Follow up in 6 weeks Ordered: ADMINISTRATION OF INFLUENZA VIRUS Ordered:14-May-2011 VACCINE (G0008) FLU VACC PRSV FREE INC ANTIG Completed:14-May-2011 ([id number]) Follow up in 2 months Ordered:14-May-2011 Follow up in 2 months Ordered: Annual Eye Exam Completed:22-Nov-2008 Colonoscopy, Screening Completed: Colonoscopy, Screening Completed:06-Oct-2014 Flu Vaccine Completed:26-Oct-2013 Flu Vaccine Completed:06-Jun-2012 Comments: [facility] Flu Vaccine Completed:14-May-2011 Comments: high dose Flu [...] Site: Deltoid (Left); high dose Lot #: [id number] Influenza, preserv. free, enhanced immunogncty, IM Administered on:2013 Comments: Site: Deltoid (Left) Lot #: [id number] Pneumococcal conjugate vaccine, 13 valent, IM Administered on:12-Aug-2014 Comments: Site: Deltoid (Left) Lot #: [id number] Social History Name Dates Details Tobacco use: [...] Comments: The left neck Final 10:36 SINGLE (85622) lesion was removed and also the left [...] not sent to pathology. 10:35 PUNCH BIOPSY (35701) Comments: After Final FIRST BIOPSY cleansing the [...] patient have a artifical heart valve? No ([facility]) (06679) 9. Saturday Dosage Repeat mg (Normal) 8. [...] Charge[i], Protime & INR, PSA 16:21 ANTIGEN) (92177) PSA 6.00 ng/mL (Abnormal) Range: 0.00-4.00 16:21 PT (PROTHROMBIN TIME) Comments: Does patient have a artifical heart valve? No ([facility]) (58669) 8. Saturday Dosage 5.0 mg (Normal) 9. Saturday Dosage 7.5 mg (Normal) 6. Saturday Dosage 7.5 mg (Normal) 7. Dosage 7.5 mg (Normal) 5. Saturday Dosage 5.0 mg (Normal) 4. Saturday Dosage 7.5 mg (Normal) 3. Saturday Dosage 7.5 mg (Normal) INR 2.21 (Normal) PT 24.2 s (Abnormal) Range: 9.3-11.7 16:21 Routine Venipuncture (81034) Draw Drawn (Normal) 25-Oct-2015 URIC ACID BLOOD (77679) Comments: Items in this order include : CBC, Comprehensive Metabolic Panel, CKI, Hemoglobin A1C, Uric Acid, Draw Charge[i] 11:21 Uric Acid 5.5 mg/dL (Normal) Range: 3.5-7.2 11:21 HEMOGLOBIN GLYCLATED (HGB A1C) (05915) A1C 6.2 % (Normal) Range: 4.6-6.2 Comments: High risk of diabetes. 11:21 CK (94540) Comments: Items in this order include: CBC, Comprehensive Metabolic Panel, CKI, Hemoglobin A1C, Uric Acid, Draw Charge[i] CKI 288 U/L (Normal) Range: 39-308 11:21 CMP (85570) Comments: Items in this order include: CBC, [...] 135-145 11:21 CBC MALE- ORDER THIS ONE! ([id number]) manual diff Not Indicated (Normal) mpv 9.80 [...] have a artifical heart valve? No 15:06 ([facility]) (60069) 9. Saturday Dosage 7.5 mg (Normal) 8. [...] order include: Draw Charge[i], Protime & INR (42195) Draw Drawn (Normal) [facility] (40481) Comments: Items in this order include: Basic [...] include: A COPY TO [kyung], PSA ANTIGEN) (86670) PSA 6.55 ng/mL (Abnormal) Range: 0.00-4.00 09:[address] Boswell Comments: A copy of this report will be faxed to: Bettie Boswell in this order include: A COPY TO [kyung], PSA Ordering Doctor . (Normal) 09:15 PT (PROTHROMBIN TIME) Comments: Items in this order include: Draw Charge[i], Protime & INRDoes patient have a artifical heart valve? No ([facility]) (26231) 8. Saturday Dosage 7.5 mg (Normal) 9. [...] order include: Draw Charge[i], Protime & INR (32279) Draw Drawn (Normal) 14-Jan-2015 PT (PROTHROMBIN TIME) Comments: Items in this order include: Draw Charge[i], Protime & INRDoes patient have a artifical heart valve? No 09:28 ([facility]) (92431) 9. Saturday Dosage 5.0 mg (Normal) 7. [...] order include: Draw Charge[i], Protime & INR (95470) Draw Drawn (Normal) 28-Oct-2014 PT (PROTHROMBIN TIME) Comments: Items in this order include: Draw Charge[i], Protime & INRDoes patient have a artifical heart valve? No 10:48 ([facility]) (91180) 9. Saturday Dosage 7.5 mg (Normal) 8. [...] order include: Draw Charge[i], Protime & INR (08629) Draw Drawn (Normal) 29-Nov-2014 PT (PROTHROMBIN TIME) Comments: Items in this order include: Draw Charge[i], Protime & INRDoes patient have a artifical heart valve? No 10:28 ([facility]) (14834) 9. Saturday Dosage 5.0 mg (Normal) 8. [...] order include: Draw Charge[i], Protime & INR (42837) Draw Drawn (Normal) 21-Sep-2014 PT (PROTHROMBIN TIME) Comments: Items in this order include: Draw Charge[i], Protime & INRDolynn patient have a artifical heart valve? No 10:08 ([facility]) (45863) 9. Saturday Dosage 5.0 mg (Normal) 7. [...] order include: Draw Charge[i], Protime & INR (72491) Draw Drawn (Normal) 24-Aug-2014 Routine Venipuncture Comments: Items in this order include: Protime & INR, Draw Charge[i] 09:59 (10618) Draw Drawn (Normal) 09:59 PT (PROTHROMBIN TIME) Comments: Items in this order include: Protime & INR, Draw Charge[i]INR value > 3.0 given to Estella by Beny Buckley patient have a artifical heart valve? No ([facility]) (91693) 9. Saturday Dosage 7.5 mg (Normal) 7. [...] Panel, Hemoglobin A1C, Urine Microalbumin, CBC ONE! (67159) manual diff Not Indicated (Normal) mpv 9.60 [...] Metabolic Panel, Hemoglobin A1C, Urine Microalbumin, CBC (63525) U A:C RATIO <30 mg/g Normal Range: <30 mg/g Normal (Normal) U CREAT 200 mg/dL (Normal) Range: 10-300 U ALB 80 mg/L (Abnormal) Range: 10 mg/L 09:59 HEMOGLOBIN GLYCLATED Comments: Items in this order include: Digoxin , PSA, Basic Metabolic Panel, Hemoglobin A1C, Urine Microalbumin, CBC (HGB A1C) (46805) A1C 5.9 % (Normal) Range: 4.6-6.2 Comments: Increased risk of diabetes. 09:59 [facility] (06930) Comments: Items in this order include: Digoxin, [...] Panel, Hemoglobin A1C, Urine Microalbumin, CBC ANTIGEN) (89165) PSA 7.11 ng/mL (Abnormal) Range: 0.00-4.00 09:59 DIGOXIN (05359) Comments: Items in this order include: Digoxin, PSA , Basic Metabolic Panel, Hemoglobin A1C, Urine Microalbumin, CBCTime of Last Dose? 08/23/2014 8:00 AMDosage? 0.25 DIG 0.36 ng/mL (Abnormal) Range: 0.90-2.00 05-Aug-2014 PT (PROTHROMBIN TIME) Comments: Items in this order include: Draw Charge[i], Protime & INRDoes patient have a artifical heart valve? No 10:48 ([facility]) (22920) 8. Saturday Dosage 7.5 mg (Normal) 9. [...] order include: Draw Charge[i], Protime & INR (46161) Draw Drawn (Normal) 03-Jun-2014 PT (PROTHROMBIN TIME) Comments: Items in this order include: Draw Charge[i], Protime & INRDoes patient have a artifical heart valve? No 13:56 ([facility]) (12399) 9. Saturday Dosage 7.5 mg (Normal) 8. [...] order include: Draw Charge[i], Protime & INR (12439) Draw Drawn (Normal) PT (PROTHROMBIN TIME) Comments: Items in this order include: Protime & INRDoes patient have a artifical heart valve? No 14:25 ([facility]) (03403) 9. day Dosage 5.0 mg (Normal) 8. [...] this order include: Draw Charge[i], PSA ANTIGEN) (22165) PSA 6.15 ng/mL (Abnormal) Range: 0.00-4.00 14:25 Routine Venipuncture Comments: A copy of this report will be faxed to: Bettie Boswell in this order include: Draw Charge[i], PSA (79163) Draw Drawn (Normal) HEMOGLOBIN GLYCLATED Comments: Items in this order include: Hemoglobin A1C, Draw Charge[i], Comprehensive Metabolic Panel, Uric Acid 15:06 (HGB A1C) (62540) A1C 5.7 % (Normal) Range: 4.6-6.2 15:06 CMP (44281) Comments: Items in this order include: Hemoglobin [...] (Normal) Range: 135-145 15:06 URIC ACID BLOOD (82330) Comments: Items in this order include: Hemoglobin A1C, Draw Charge[i], Comprehensive Metabolic Panel, Uric Acid Uric Acid 8.0 mg/dL (Abnormal) Range: 3.6-7.7 15:06 Routine Venipuncture Comments: Items in this order include: Hemoglobin A1C, Draw Charge[i], Comprehensive Metabolic Panel, Uric Acid (12483) Draw Drawn (Normal) PT (PROTHROMBIN TIME) Comments: Items in this order include: Draw Charge[i], Protime & INRDoes patient have a artifical heart valve? No 14:27 ([facility]) (22345) 8. Saturday Dosage 5.0 mg (Normal) 9. [...] order include: Draw Charge[i], Protime & INR (56373) Draw Drawn (Normal) -Oct-2013 Draw Charge[i] Comments: Items in this order include: Basic Metabolic Panel, Draw Charge[i] 17:08 Draw Drawn (Normal) 17:05 [facility] (02297) Comments: Items in this order include: Basic [...] patient have a artifical heart valve? No ([facility]) (28838) 9. Saturday Dosage 5.0 mg (Normal) 7. [...] order include: Draw Charge[i], Protime & INR (09430) Draw Drawn (Normal) 15-Sep-2013 PSA (PROSTATE SPECIFIC Comments: A copy of this report will be faxed to: Bettie Boswell in this order include: A COPY TO [kyung], PSAPSA allowed more than once a year due to being a Diagonistic PSA not a screening PSA 11:05 ANTIGEN) (13526) PSA 5.40 ng/mL (Abnormal) Range: 0.00-4.00 11:05 [...] this order include: Comprehensive Metabolic Panel, Hemoglobin [id number] Hgb A1C was ran 99 Days ago. Check by MARGARITA 10:38 (HGB A1C) (19679) A1C 5.9 % (Normal) Range: 4.6-6.2 Comments: Increased risk of diabetes. 10:38 [facility] (41055) Comments: Items in this order include: Comprehensive Metabolic Panel, Hemoglobin [id number] Hgb A1C was ran 99 Days ago. [...] patient have a artifical heart valve? No ([facility]) (69575) 9. Saturday Dosage 5.0 (cycle of 5,5,7.5 [...] order include: Draw Charge[i], Protime & INR (66665) Draw Drawn (Normal) 10:38 DIGOXIN (52278) Comments: Items in this order include: DigoxinTime of Last Dose? 08/06/2013 8:30 AMDosage? 0.25 mg daily DIG 0.48 ng/mL (Abnormal) Range: 0.90-2.00 30-Apr-2013 HEMOGLOBIN GLYCLATED Comments: Items in this order include: Comprehensive Metabolic Panel, CBC, Hemoglobin [id number] Hgb A1C was ran 225 Days ago. Check by ms 11:58 (HGB A1C) (07150) A1C 6.1 % (Normal) Range: 4.6-6.2 11:58 CBC MALE- ORDER THIS Comments: Items in this order include: Comprehensive Metabolic Panel, CBC, Hemoglobin [id number] Hgb A1C was ran 225 Days ago. Check by ms ONE! (85508) manual diff Not Indicated (Normal) mpv 4.88 [...] 6.15 10*3/uL (Normal) Range: 4.50-10.50 11:58 CMP (31298) Comments: Items in this order include: Comprehensive Metabolic Panel, CBC, Hemoglobin [id number] Hgb A1C was ran 225 Days ago. [...] patient have a artifical heart valve? No ([facility]) (78076) 4. Saturday Dosage Repeat mg (Normal) 3. Saturday Dosage 7.5 mg (Normal) 2. Saturday Dosage 5.0 mg (Normal) 1. Saturday Dosage 5.0 mg (Normal) INR 2.60 (Normal) PT 26.8 s (Abnormal) Range: 10.4-12.4 -March-2013 PT (PROTHROMBIN TIME) Comments: Items in this order include: Draw Charge[i], Protime & INRDoes patient have a artifical heart valve? No 15:12 ([facility]) (52256) 5. Dosage Repeat mg (Normal) 4. Saturday Dosage 5.0 mg (Normal) 3. Saturday Dosage 5.0 mg (Normal) 2. Saturday Dosage 7.5 mg (Normal) INR 2.31 (Normal) PT 24.0 s (Abnormal) Range: 10.4-12.4 15:12 Routine Venipuncture Comments: Items in this order include: Draw Charge[i], Protime & INR (10170) Draw Drawn (Normal) PSA (PROSTATE SPECIFIC Comments: A copy of this report will be faxed to: Bettie Boswell in this order include: PSA, Draw Charge[i]PSA allowed more than once a year due to being a Diagonistic PSA not a screening PSA 10:00 ANTIGEN) (02277) PSA 5.60 ng/mL (Abnormal) Range: 0.00-4.00 10:00 [...] patient have a artifical heart valve? No ([facility]) (97559) 3. Saturday Dosage Repeat mg (Normal) 2. Saturday Dosage 7.5 mg (Normal) 1. Saturday Dosage 5.0 mg (Normal) INR 2.64 (Normal) PT 27.2 s (Abnormal) Range: 10.4-12.4 10:09 Routine Venipuncture Comments: Items in this order include: Draw Charge[i], Protime & INR (06743) Draw Drawn (Normal) 16-Dec-2012 PT (PROTHROMBIN TIME) Comments: Items in this order include: Draw Charge[i], Protime & INRDoes patient have a artifical heart valve? No 10:46 ([facility]) (28251) 4. Saturday Dosage Repeat mg (Normal) 3. Saturday Dosage 5.0 mg (Normal) 2. Saturday Dosage 7.5 mg (Normal) INR 2.13 (Normal) PT 22.2 s (Abnormal) Range: 10.4-12.4 10:46 Routine Venipuncture Comments: Items in this order include: Draw Charge[i], Protime & INR (37728) Draw Drawn (Normal) 26-Nov-2012 Routine Venipuncture Comments: Items in this order include: Protime & INR, Draw Charge[i] 15:05 (16172) Draw Drawn (Normal) 15:05 PT (PROTHROMBIN TIME) Comments: Items in this order include: Protime & INR, Draw Charge[i]Does patient have a artifical heart valve? No ([facility]) (48604) 4. Saturday Dosage 5.0 Repeat mg (Normal) 3. Saturday Dosage 5.0 mg (Normal) 2. Saturday Dosage 7.5 mg (Normal) INR 1.34 (Normal) PT 14.4 s (Abnormal) Range: 10.4-12.4 30-Oct-2012 PT (PROTHROMBIN TIME) Comments: Items in this order include: Draw Charge[i], Protime & INRINR value > 3.0 given to BW by Froy Chávez patient have a artifical heart valve? No 10:38 ([facility]) (94328) 7. Saturday Dosage 7.5 mg (Normal) 6. [...] order include: Draw Charge[i], Protime & INR (88219) Draw Drawn (Normal) 11:33 BMP Comments: Items [...] Dose? 10/29/2012 8:00 PMDosage? 0.25 mg Daily (51257) DIG 1.64 ng/mL (Normal) Range: 0.90-2.00 14-Oct-2012 PSA (PROSTATE SPECIFIC Comments: A copy of this report will be faxed to: Bettie Boswell in this order include: Draw Charge[i], Protime & INR, PSAPSA allowed more than once a year due to being a Diagonistic PSA not a screening PSA 10:25 ANTIGEN) (70526) PSA 8.11 ng/mL (Abnormal) Range: 0.00-4.00 10:25 PT (PROTHROMBIN TIME) Comments: PSA allowed more than once a year due to being a Diagonistic PSA not a screening PSACoumadin dosage=5,5,5,5,7.5 repeatDoes patient have a artifical heart valve? No ([facility]) (77207) 7. Saturday Dosage 7.5 mg (Normal) 6. [...] a Diagonistic PSA not a screening PSA (89298) Draw Drawn (Normal) 12-Sep-2012 PT (PROTHROMBIN TIME) Comments: Items in this order include: Draw Charge[i], Protime & INRDoes patient have a artifical heart valve? No 09:16 ([facility]) (98313) 6. Saturday Dosage Repeat mg (Normal) 5. Dosage 7.5 mg (Normal) 4. Saturday Dosage 5.0 mg (Normal) 3. Saturday Dosage 5.0 mg (Normal) 2. Saturday Dosage 5.0 mg (Normal) 1. Saturday Dosage 5.0 mg (Normal) INR 2.48 (Normal) PT 25.7 s (Abnormal) Range: 10.4-12.4 09:16 Routine Venipuncture Comments: Items in this order include: Draw Charge[i], Protime & INR (13191) Draw Drawn (Normal) 18-Aug-2012 PT (PROTHROMBIN TIME) Comments: Items in this order include: Protime & INRDoes patient have a artifical heart valve? No 11:44 ([facility]) (78221) 7. Saturday Dosage 5.0 mg (Normal) 6. [...] Days ago. Check by KB (HGB A1C) (95554) A1C 6.2 % (Normal) Range: 4.6-6.2 Comments: High risk of diabetes. 31-Jul-2012 PT (PROTHROMBIN TIME) Comments: Items in this order include: Draw Charge[i], Protime & INRINR value > 3.0 given to Estella by Beny Buckley patient have a artifical heart valve? No 13:32 ([facility]) (35439) 7. Saturday Dosage 5.0 mg (Normal) 6. [...] order include: Draw Charge[i], Protime & INR (17671) Draw Drawn (Normal) 23-Jun-2012 PSA (PROSTATE SPECIFIC Comments: A copy of this report will be faxed to: Bettie Boswell in this order include: Draw Charge[i], Protime & INR, PSAPSA allowed more than once a year due to being a Diagonistic PSA not a screening PSA 15:50 ANTIGEN) (36460) PSA 8.05 ng/mL (Abnormal) Range: 0.00-4.00 15:50 PT (PROTHROMBIN TIME) Comments: A copy of this report will be faxed to: Bettie Boswell in this order include: Draw Charge[i], Protime & INR , PSAPSA allowed more than once a year due to being a Diagonistic PSA not a screening ([facility]) (81324) PSADoes patient have a artifical heart valve? [...] a Diagonistic PSA not a screening PSA (44569) Draw Drawn (Normal) 13-May-2012 Draw Charge[i] Comments: [...] results to dr. hema boswell 14:28 ANTIGEN) (41239) PSA 16.45 ng/mL (Abnormal) Range: 0.00-4.00 14:28 PT (PROTHROMBIN TIME) Comments: Coumadin Dosage=5,5,5,7.5 Repeat. Took 7.5 on 04-27-12. ([facility]) (89691) 5. Dosage 7.5 Repeat mg (Normal) 4. Saturday Dosage 5.0 mg (Normal) 3. Saturday Dosage 5.0 mg (Normal) 2. Saturday Dosage 5.0 mg (Normal) 1. Saturday Dosage 7.5 mg (Normal) INR 2.17 (Normal) PT 22.7 s (Abnormal) Range: 10.4-12.4 14:28 Routine Venipuncture (46330) Draw Drawn (Normal) 13-May-2012 PSA (PROSTATE SPECIFIC Comments: A copy of this report will be faxed to: Bettie Boswell in this order include: PSA, Draw Charge[i]PSA allowed more than once a year due to being a Diagonistic PSA not a screening PSA 09:20 ANTIGEN) (87742) PSA 11.30 ng/mL (Abnormal) Range: 0.00-4.00 TSH (THYROID Comments: Items in this order include: TSH 16:40 STIMULATING HORMONE) (88533) TSH 1.36 uIU/ml (Normal) Range: 0.34-5.60 14:50 PT (PROTHROMBIN TIME) Comments: Items in this order include: Draw Charge[i], Basic Metabolic Panel, Hemoglobin A1C, Protime & INRLast Hbg A1C was ran 218 Days ago. Check by DL ([facility]) (81523) 5. Dosage Repeat mg (Normal) 4. Saturday [...] ran 218 Days ago. Check (HGB A1C) (23041) by DLplease draw enough blood so if [...] ran 218 Days ago. Check by DL (34641) Draw Drawn (Normal) DIGOXIN, DRUG ASSAY Comments: Items in this order include: CBC, Comprehensive Metabolic Panel, CKI, Digoxin, Draw Charge[i] 09:08 (02272) DIG 0.38 ng/mL (Abnormal) Range: 0.90-2.00 09:08 CK Comments: Items in this order include: CBC, Comprehensive Metabolic Panel, CKI, Digoxin, Draw Charge[i] CKI 143 U/L (Normal) Range: 39-308 09:08 CMP (85476) Comments: Items in this order include: CBC, [...] Metabolic Panel, CKI, Digoxin, Draw Charge[i] ONE! (94077) manual diff Not Indicated (Normal) mpv 6.84 [...] order include: Protime & INR, Draw Charge[i] (09251) Draw Drawn (Normal) 16:45 PT (PROTHROMBIN TIME) Comments: Items in this order include: Protime & INR, Draw Charge[i]Coumadin doasage=5,5,7.5 Repeat ([facility]) (89392) 7. Saturday Dosage 5.0 mg (Normal) 6. [...] order include: Draw Charge[i], PSA 11:11 ANTIGEN) (04634) PSA 6.92 ng/mL (Abnormal) Range: 0.00-4.00 11:11 Routine Venipuncture Comments: A copy of this report will be faxed to: Bettie Boswell in this order include: Draw Charge[i], PSA (94310) Draw Drawn (Normal) 17-Oct-2011 Routine Venipuncture 10:18 (00796) Draw Drawn (Normal) 10:18 TESTOSTERONE, FREE, Comments: Items in this order include: Protime & INR, Draw Charge[i], TESTOSTERONE, FREE, BIOAVAILABLE, AND TOTAL, LC/MS/ MSTesting performed at: [place], [address] [address] [place], [place], [address], Product Specialist: Michael Chávez [facility] TOTAL, LC/MS/MS ALBUMIN,SERUM 4.4 [...] and benefits counseling. 10:18 PT (PROTHROMBIN TIME) ([facility]) (16245) 7. Saturday Dosage 5.0 mg (Normal) 6. [...] Panel, Hemoglobin A1C, Draw Charge[i] (HGB A1C) (98105) A1C 6.1 % (Normal) Range: 4.6-6.2 13:29 [...] (Normal) Range: 135-145 13:29 DIGOXIN, DRUG ASSAY (37393) DIG 0.85 ng/mL (Abnormal) Range: 0.90-2.00 07-Aug-2011 TESTOSTERONE, FREE, Comments: Items in this order include: TESTOSTERONE, FREE, BIOAVAILABLE, AND TOTAL, LC/MS/MSTesting performed at: [place], [address] [address], [place] , [address], [place] 12:53 WEAKLY BOUND AND TOTAL ratory Director: Michael Chávez MD.[facility] (66965) ALBUMIN,SERUM 4.4 g/dL (Normal) Range: 3.6-5.1 SEX [...] INR, Draw Charge[i]no change in coumadin dose ([facility]) (96348) 7. Saturday Dosage 7.5 mg (Normal) 6. [...] Metabolic Panel, Protime & INR, Draw Charge[i] ([facility]) (40873) 7. Saturday Dosage 5.0 mg (Normal) 5. [...] Boswell in this order include: PSA ANTIGEN) (72879) PSA 5.95 ng/mL (Abnormal) Range: 0.00-4.00 CBC-MALE- ORDER THIS Comments: Items in this order include : Hemoglobin A1C, Comprehensive Metabolic Panel, CBC 11:56 ONE! (57112) manual diff Not Indicated (Normal) mpv 7.65 [...] 6.24 10*3/uL (Normal) Range: 4.50-10.50 11:56 CMP (28465) Comments: Items in this order include: Hemoglobin [...] this order include: Digoxin, Draw Charge[i] 15:17 (09984) DIG 1.18 ng/mL (Normal) Range: 0.90-2.00 HEMOGLOBIN GLYCLATED Comments: Items in this order include: Hemoglobin A1C, Comprehensive Metabolic Panel, CBC 11:56 (HGB A1C) (48963) A1C 6.6 % (Abnormal) Range: 4.6-6.2 Comments: Consistent with diabetes. 13:48 PT (PROTHROMBIN TIME) Comments: change to coumadin 5mg x 2 day then 7.5mg x1 repeat the cycle; Items in this order include: Protime & INR, Draw Charge[i]cyclechange to coumadin 5mg x 2 day then 7.5mg x1 repeat the ([facility]) (42146) 6. Saturday Dosage 7.5 mg (Normal) 7. [...] & INR, PSA, Draw Charge[i] 09:43 ANTIGEN) (85560) PSA 5.84 ng/mL (Abnormal) Range: 0.00-4.00 09:43 PT (PROTHROMBIN TIME) Comments: no change in coumadin; no change in coumadin ([facility]) (48165) 7. Saturday Dosage 7.5 mg (Normal) 6. Saturday Dosage 5.0 mg (Normal) 5. Dosage 7.5 mg (Normal) 4. Saturday Dosage 5.0 mg (Normal) 3. Saturday Dosage 5.0 mg (Normal) 1. Saturday Dosage 5.0 mg (Normal) 2. Saturday Dosage 7.5 mg (Normal) INR 3.45 (Normal) PT 32.9 s (Abnormal) Range: 10.4-12.4 23-Nov-2010 PT (PROTHROMBIN TIME) 10:03 ([facility] [place]) ([id number]) 6. Saturday Dosage 7.5 mg (Normal) 7. Saturday Dosage 5 mg (Normal) 1. Saturday Dosage 5 mg (Normal) 2. Saturday Dosage 7.5 mg (Normal) 3. Saturday Dosage 5 mg (Normal) 4. Saturday Dosage 7.5 mg (Normal) 5. Dosage 5 mg (Normal) INR 2.16 (Normal) PT 21.0 s (Abnormal) Range: 10.4-12.4 19-Oct-2010 PT (PROTHROMBIN TIME) 15:16 ([facility] [place]) ([id number]) 6. Saturday Dosage 5 mg (Normal) 7. Saturday Dosage 7.5 mg (Normal) 3. Saturday Dosage 7.5 mg (Normal) 4. Saturday Dosage 5 mg (Normal) 5. Dosage 7.5 mg (Normal) 1. Saturday Dosage 7.5 mg (Normal) 2. Saturday Dosage 5 mg (Normal) INR 2.13 (Normal) PT 20.7 s (Abnormal) Range: 10.4-12.4 12-Sep-2010 PT (PROTHROMBIN TIME) 11:03 ([facility] [place]) ([id number]) INR 2.57 (Normal) PT (PROTHROMBIN TIME) 24.8 s (Abnormal) Range: 11.5-13.5 22-Aug-2010 PT (PROTHROMBIN TIME) 13:41 ([facility] [place]) ([id number]) 09-Aug-2010 PSA, MEDICARE ([id number]) Comments: please fax to dr hema boswell 09:54 PSA (Medicare) 4.83 ng/mL (Abnormal) Range: 0 - 4 09:34 PT (PROTHROMBIN TIME) ([facility] [place]) ([id number]) INR 2.68 (Normal) PT (PROTHROMBIN TIME) 25.8 s (Abnormal) Range: 11.5-13.5 27-Jun-2010 PT (PROTHROMBIN TIME) 08:38 ([facility] [place]) ([id number]) 26-Jun-2010 PT (PROTHROMBIN TIME) 16:21 ([facility] [place]) ([id number]) INR 1.89 (Normal) PT (PROTHROMBIN TIME) 18.4 s (Abnormal) Range: 11.5-13.5 Treatment Plan LIPID PANEL (00912); Ordered: 10/28/2015; Note: Verbal order from Dr. [...] (PCV13)FOR MEDICARE USE ONLY Pneumovax injection (V03.82) 41004, Encounter for long-term ( current) use of [...] M.D. after being in the hospital at [facility] on 10/16/13 & discharged on 10/17/13 dx [...] dr. boswell the middle of apr.). [facility] Historical Summary On [...] Insurance Vijay Yuan; a guarantorMedicare [employer] [facility] [employer]
--- OUTSIDE RECORDS SUMMARY | 2017-10-22 17:51 | External Medical Summary | Continuity of Care Document ---
:1940 Author Organization [facility] Address [address] [place] [address] Phone Care Team Providers Name Role Phone [...] Comments:started on 10/17/13 after being dismissed from [facility] for kidney stone by gale CITALOPRAM HYDROBROMIDE, 20MG (Oral Tablet) 1 Tablet daily for 30 days Quantity: 30 {Tablet} Refills: 2 Ordered:01-May-2012 Nohelia Combs Start End 01-May-2012 Inactive Comments:May increase to 2 in 10 days, if able and can refill with 40mg DIGOXIN, 0.25MG (Oral Tablet) 1 Tablet daily for 90 days Quantity: 90 {Tablet} Refills: 4 Ordered:30-Oct-2012 MtNohelia witt Start 19-Aug-2012 End 30-Oct-2012 Inactive DILTIAZEM HCL, [...] dx kidney stone from being discharged from [facility] PROMETHAZINE-DM, 6.25-15MG/5ML (Oral Syrup) 1-2 [...] BL DRAW < 3 YRS Ordered:28-Oct-2015 FEM/JUGULAR ([id number]) Follow up in 6 months Ordered:27-Oct-2015 How to access health information Completed:27-Jul-2015 online Skin Conditions Completed:27-Jul-2015 Follow up in 2 weeks Ordered:27-Jul-2015 HIGH DOSE QUADRIVALENT INFLUENZA Ordered:25-Jul-2015 VACCINE ([id number]) ADMINISTRATION OF INFLUENZA VIRUS Ordered:25-Jul-2015 VACCINE ([id number]) Follow up in 3 months Ordered:25-Jul-2015 Follow up in 4 months Ordered: X-RAY EXAM OF KNEE, 1 OR 2 VIEWS Completed: Comments: right (62082) X-RAY EXAM OF BOTH KNEES, Completed: STANDING (77944) How to access health information Completed: online Follow up - Keep appt as scheduled Ordered:28-Oct-2014 CAROTID BILATERAL US ([id number]) Completed:14-Sep-2014 Comments: Verbal order from Dr. James Romero Follow up in 6 months Ordered:12-Aug-2014 PREVNAR 13 VALENT PNEUMOCOCCAL Completed:12-Aug-2014 VACCINE ([id number]) ADMINISTRATION OF PNEUMOCOCCAL Ordered:12-Aug-2014 CONJUGATE VACCINE (G0009) How to access health information Completed:12-Aug-2014 online Follow up in 6 months Ordered: Follow up in 2 months Ordered:26-Oct-2013 ADMIN INFLUENZA VIRUS VAC: FLU VACC Completed:26-Oct-2013 PRSV FREE INC ANTIG ([id number]) ADMINISTRATION OF INFLUENZA VIRUS Ordered:26-Oct-2013 VACCINE (G0008) Follow up in 6 months Ordered:30-Apr-2013 Follow up - Keep appt as scheduled Ordered:02-Jan-2013 Follow up in 6 months Ordered:30-Oct-2012 Follow up in 3 months Ordered:01-Aug-2012 Follow up in 3 months Ordered:01-May-2012 Follow up in 6 weeks Ordered: ADMINISTRATION OF INFLUENZA VIRUS Ordered:14-May-2011 VACCINE (G0008) FLU VACC PRSV FREE INC ANTIG Completed:14-May-2011 (34188) Follow up in 2 months Ordered:14-May-2011 Follow [...] Site: Deltoid (Left); high dose Lot #: [id number] Influenza, preserv. free, enhanced immunogncty, IM Administered on:2013 Comments: Site: Deltoid (Left) Lot #: [id number] Pneumococcal conjugate vaccine, 13 valent, IM Administered on:12-Aug-2014 Comments: Site: Deltoid (Left) Lot #: [id number] Social History Name Dates Details Tobacco use: [...] Comments: The left neck Final 10:36 SINGLE (42900) lesion was removed and also the left [...] not sent to pathology. 10:35 PUNCH BIOPSY (27539) Comments: After Final FIRST BIOPSY cleansing the [...] patient have a artifical heart valve? No ([facility]) (11557) 9. day Dosage Repeat mg (Normal) 8. Joao Dosage 5.0 mg (Normal) 7. Dosage 7.5 mg (Normal) 6. Saturday Dosage 7.5 mg (Normal) 5. Saturday Dosage 5.0 mg (Normal) 4. Saturday Dosage 7.5 mg (Normal) 3. Willie Dosage 7.5 mg (Normal) INR 3.24 (Normal) PT 36.0 s (Abnormal) Range: 9.3-11.7 08-Sep-2015 PSA (PROSTATE SPECIFIC Comments: Items in this order include: Draw Charge[i], Protime & INR, PSA 16:21 ANTIGEN) (00255) PSA 6.00 ng/mL (Abnormal) Range: 0.00-4.00 16:21 PT (PROTHROMBIN TIME) Comments: Does patient have a artifical heart valve? No ([facility]) (01495) 8. Saturday Dosage 5.0 mg (Normal) 9. Saturday Dosage 7.5 mg (Normal) 6. Saturday Dosage 7.5 mg (Normal) 7. Dosage 7.5 mg (Normal) 5. Saturday Dosage 5.0 mg (Normal) 4. Saturday Dosage 7.5 mg (Normal) 3. Saturday Dosage 7.5 mg (Normal) INR 2.21 (Normal) PT 24.2 s (Abnormal) Range: 9.3-11.7 16:21 Routine Venipuncture (23827) Draw Drawn (Normal) 25-Oct-2015 URIC ACID BLOOD (13135) Comments: Items in this order include : CBC, Comprehensive Metabolic Panel, CKI, Hemoglobin A1C, Uric Acid, Draw Charge[i] 11:21 Uric Acid 5.5 mg/dL (Normal) Range: 3.5-7.2 11:21 HEMOGLOBIN GLYCLATED (HGB A1C) (09627) A1C 6.2 % (Normal) Range: 4.6-6.2 Comments: High risk of diabetes. 11:21 CK (95245) Comments: Items in this order include: CBC, Comprehensive Metabolic Panel, CKI, Hemoglobin A1C, Uric Acid, Draw Charge[i] CKI 288 U/L (Normal) Range: 39-308 11:21 CMP (10879) Comments: Items in this order include: CBC, [...] 135-145 11:21 CBC MALE- ORDER THIS ONE! (12241) manual diff Not Indicated (Normal) mpv 9.80 [...] have a artifical heart valve? No 15:06 ([facility]) (37685) 9. Saturday Dosage 7.5 mg (Normal) 8. [...] order include: Draw Charge[i], Protime & INR (55315) Draw Drawn (Normal) [facility] (05985) Comments: Items in this order include: Basic [...] include: A COPY TO [kyung], PSA ANTIGEN) (58643) PSA 6.55 ng/mL (Abnormal) Range: 0.00-4.00 09:[address] Boswell Comments: A copy of this report will be faxed to: Bettie Boswell in this order include: A COPY TO [kyung], PSA Ordering Doctor . (Normal) 09:15 PT (PROTHROMBIN TIME) Comments: Items in this order include: Draw Charge[i], Protime & INRDoes patient have a artifical heart valve? No ([facility]) (47011) 8. Saturday Dosage 7.5 mg (Normal) 9. [...] order include: Draw Charge[i], Protime & INR (54479) Draw Drawn (Normal) 14-Jan-2015 PT (PROTHROMBIN TIME) Comments: Items in this order include: Draw Charge[i], Protime & INRDoes patient have a artifical heart valve? No 09:28 ([facility]) (31225) 9. Saturday Dosage 5.0 mg (Normal) 7. [...] order include: Draw Charge[i], Protime & INR (87680) Draw Drawn (Normal) 28-Oct-2014 PT (PROTHROMBIN TIME) Comments: Items in this order include: Draw Charge[i], Protime & INRDoes patient have a artifical heart valve? No 10:48 ([facility]) (33547) 9. Saturday Dosage 7.5 mg (Normal) 8. [...] order include: Draw Charge[i], Protime & INR (22310) Draw Drawn (Normal) 29-Nov-2014 PT (PROTHROMBIN TIME) Comments: Items in this order include: Draw Charge[i], Protime & INRDoes patient have a artifical heart valve? No 10:28 ([facility]) (66437) 9. Saturday Dosage 5.0 mg (Normal) 8. [...] order include: Draw Charge[i], Protime & INR (28828) Draw Drawn (Normal) 21-Sep-2014 PT (PROTHROMBIN TIME) Comments: Items in this order include: Draw Charge[i], Protime & INRDoes patient have a artifical heart valve? No 10:08 ([facility]) (15382) 9. Saturday Dosage 5.0 mg (Normal) 7. [...] order include: Draw Charge[i], Protime & INR (79795) Draw Drawn (Normal) 24-Aug-2014 Routine Venipuncture Comments: Items in this order include: Protime & INR, Draw Charge[i] 09:59 (14888) Draw Drawn (Normal) 09:59 PT (PROTHROMBIN TIME) Comments: Items in this order include: Protime & INR, Draw Charge[i]INR value > 3.0 given to Estella by Beny Buckley patient have a artifical heart valve? No ([facility]) (64742) 9. Saturday Dosage 7.5 mg (Normal) 7. [...] Panel, Hemoglobin A1C, Urine Microalbumin, CBC ONE! (86026) manual diff Not Indicated (Normal) mpv 9.60 [...] Metabolic Panel, Hemoglobin A1C, Urine Microalbumin, CBC (95539) U A:C RATIO <30 mg/g Normal Range: <30 mg/g Normal (Normal) U CREAT 200 mg/dL (Normal) Range: 10-300 U ALB 80 mg/L (Abnormal) Range: 10 mg/L 09:59 HEMOGLOBIN GLYCLATED Comments: Items in this order include: Digoxin , PSA, Basic Metabolic Panel, Hemoglobin A1C, Urine Microalbumin, CBC (HGB A1C) (00049) A1C 5.9 % (Normal) Range: 4.6-6.2 Comments: Increased risk of diabetes. 09:59 [facility] (87522) Comments: Items in this order include: Digoxin, [...] Panel, Hemoglobin A1C, Urine Microalbumin, CBC ANTIGEN) (37076) PSA 7.11 ng/mL (Abnormal) Range: 0.00-4.00 09:59 DIGOXIN (60213) Comments: Items in this order include: Digoxin, PSA , Basic Metabolic Panel, Hemoglobin A1C, Urine Microalbumin, CBCTime of Last Dose? 08/23/2014 8:00 AMDosage? 0.25 DIG 0.36 ng/mL (Abnormal) Range: 0.90-2.00 05-Aug-2014 PT (PROTHROMBIN TIME) Comments: Items in this order include: Draw Charge[i], Protime & INRDoes patient have a artifical heart valve? No 10:48 ([email or web address]) (52547) 8. Saturday Dosage 7.5 mg (Normal) 9. [...] order include: Draw Charge[i], Protime & INR (10053) Draw Drawn (Normal) 03-Jun-2014 PT (PROTHROMBIN TIME) Comments: Items in this order include: Draw Charge[i], Protime & INRDoes patient have a artifical heart valve? No 13:56 ([email or web address]) (05258) 9. Saturday Dosage 7.5 mg (Normal) 8. [...] order include: Draw Charge[i], Protime & INR (47435) Draw Drawn (Normal) PT (PROTHROMBIN TIME) Comments: Items in this order include: Protime & INRDoes patient have a artifical heart valve? No 14:25 ([email or web address]) (54452) 9. day Dosage 5.0 mg (Normal) 8. [...] this order include: Draw Charge[i], PSA ANTIGEN) (63253) PSA 6.15 ng/mL (Abnormal) Range: 0.00-4.00 14:25 Routine Venipuncture Comments: A copy of this report will be faxed to: Bettie Boswell in this order include: Draw Charge[i], PSA (06897) Draw Drawn (Normal) -January-2014 HEMOGLOBIN GLYCLATED Comments: Items in this order include: Hemoglobin A1C, Draw Charge[i], Comprehensive Metabolic Panel, Uric Acid 15:06 (HGB A1C) (16407) A1C 5.7 % (Normal) Range: 4.6-6.2 15:06 CMP (04420) Comments: Items in this order include: Hemoglobin [...] (Normal) Range: 135-145 15:06 URIC ACID BLOOD (69371) Comments: Items in this order include: Hemoglobin A1C, Draw Charge[i], Comprehensive Metabolic Panel, Uric Acid Uric Acid 8.0 mg/dL (Abnormal) Range: 3.6-7.7 15:06 Routine Venipuncture Comments: Items in this order include: Hemoglobin A1C, Draw Charge[i], Comprehensive Metabolic Panel, Uric Acid (28797) Draw Drawn (Normal) PT (PROTHROMBIN TIME) Comments: Items in this order include: Draw Charge[i], Protime & INRDoes patient have a artifical heart valve? No 14:27 ([facility]) (66482) 8. Saturday Dosage 5.0 mg (Normal) 9. [...] order include: Draw Charge[i], Protime & INR (47065) Draw Drawn (Normal) 26-Oct-2013 Draw Charge[i] Comments: Items in this order include: Basic Metabolic Panel, Draw Charge[i] 17:08 Draw Drawn (Normal) 17:05 [facility] (59913) Comments: Items in this order include: Basic [...] patient have a artifical heart valve? No ([facility]) (91357) 9. Saturday Dosage 5.0 mg (Normal) 7. [...] order include: Draw Charge[i], Protime & INR (68032) Draw Drawn (Normal) 15-Sep-2013 PSA (PROSTATE SPECIFIC Comments: A copy of this report will be faxed to: Bettie Boswell in this order include: A COPY TO [kyung] PSAPSA allowed more than once a year due to being a Diagonistic PSA not a screening PSA 11:05 ANTIGEN) (07135) PSA 5.40 ng/mL (Abnormal) Range: 0.00-4.00 11:05 [...] this order include: Comprehensive Metabolic Panel, Hemoglobin [id number] Hgb A1C was ran 99 Days ago. Check by MARGARITA 10:38 (HGB A1C) (59310) A1C 5.9 % (Normal) Range: 4.6-6.2 Comments: Increased risk of diabetes. 10:38 [facility] (99724) Comments: Items in this order include: Comprehensive Metabolic Panel, Hemoglobin [id number] Hgb A1C was ran 99 Days ago. [...] patient have a artifical heart valve? No ([facility]) (09950) 9. Saturday Dosage 5.0 (cycle of 5,5,7.5 [...] order include: Draw Charge[i], Protime & INR (26046) Draw Drawn (Normal) 10:38 DIGOXIN (30031) Comments: Items in this order include: DigoxinTime of Last Dose? 08/06/2013 8:30 AMDosage? 0.25 mg daily DIG 0.48 ng/mL (Abnormal) Range: 0.90-2.00 30-Apr-2013 HEMOGLOBIN GLYCLATED Comments: Items in this order include: Comprehensive Metabolic Panel, CBC, Hemoglobin [id number] Hgb A1C was ran 225 Days ago. Check by ms 11:58 (HGB A1C) (98007) A1C 6.1 % (Normal) Range: 4.6-6.2 11:58 CBC MALE- ORDER THIS Comments: Items in this order include: Comprehensive Metabolic Panel, CBC, Hemoglobin [id number] Hgb A1C was ran 225 Days ago. Check by ms ONE! (28603) manual diff Not Indicated (Normal) mpv 4.88 [...] 6.15 10*3/uL (Normal) Range: 4.50-10.50 11:58 CMP (29888) Comments: Items in this order include: Comprehensive Metabolic Panel, CBC, Hemoglobin [id number] Hgb A1C was ran 225 Days ago. [...] patient have a artifical heart valve? No ([facility]) (47616) 4. Saturday Dosage Repeat mg (Normal) 3. Saturday Dosage 7.5 mg (Normal) 2. Saturday Dosage 5.0 mg (Normal) 1. Saturday Dosage 5.0 mg (Normal) INR 2.60 (Normal) PT 26.8 s (Abnormal) Range: 10.4-12.4 -March-2013 PT (PROTHROMBIN TIME) Comments: Items in this order include: Draw Charge[i], Protime & INRDoes patient have a artifical heart valve? No 15:12 ([facility]) (07682) 5. Dosage Repeat mg (Normal) 4. Saturday Dosage 5.0 mg (Normal) 3. Saturday Dosage 5.0 mg (Normal) 2. Saturday Dosage 7.5 mg (Normal) INR 2.31 (Normal) PT 24.0 s (Abnormal) Range: 10.4-12.4 15:12 Routine Venipuncture Comments: Items in this order include: Draw Charge[i], Protime & INR (54141) Draw Drawn (Normal) PSA (PROSTATE SPECIFIC Comments: A copy of this report will be faxed to: Bettie Boswell in this order include: PSA, Draw Charge[i]PSA allowed more than once a year due to being a Diagonistic PSA not a screening PSA 10:00 ANTIGEN) (15668) PSA 5.60 ng/mL (Abnormal) Range: 0.00-4.00 10:00 [...] patient have a artifical heart valve? No ([facility]) (72619) 3. Saturday Dosage Repeat mg (Normal) 2. Saturday Dosage 7.5 mg (Normal) 1. Saturday Dosage 5.0 mg (Normal) INR 2.64 (Normal) PT 27.2 s (Abnormal) Range: 10.4-12.4 10:09 Routine Venipuncture Comments: Items in this order include: Draw Charge[i], Protime & INR (20143) Draw Drawn (Normal) 16-Dec-2012 PT (PROTHROMBIN TIME) Comments: Items in this order include: Draw Charge[i], Protime & INRDoes patient have a artifical heart valve? No 10:46 ([email or web address]) (34112) 4. Saturday Dosage Repeat mg (Normal) 3. Saturday Dosage 5.0 mg (Normal) 2. Saturday Dosage 7.5 mg (Normal) INR 2.13 (Normal) PT 22.2 s (Abnormal) Range: 10.4-12.4 10:46 Routine Venipuncture Comments: Items in this order include: Draw Charge[i], Protime & INR (90467) Draw Drawn (Normal) 26-Nov-2012 Routine Venipuncture Comments: Items in this order include: Protime & INR, Draw Charge[i] 15:05 (78895) Draw Drawn (Normal) 15:05 PT (PROTHROMBIN TIME) Comments: Items in this order include: Protime & INR, Draw Charge[i]Does patient have a artifical heart valve? No ([facility]) (46113) 4. Saturday Dosage 5.0 Repeat mg (Normal) 3. Saturday Dosage 5.0 mg (Normal) 2. Saturday Dosage 7.5 mg (Normal) INR 1.34 (Normal) PT 14.4 s (Abnormal) Range: 10.4-12.4 30-Oct-2012 PT (PROTHROMBIN TIME) Comments: Items in this order include: Draw Charge[i], Protime & INRINR value > 3.0 given to BW by Froy Chávez patient have a artifical heart valve? No 10:38 ([facility]) (87710) 7. Saturday Dosage 7.5 mg (Normal) 6. [...] order include: Draw Charge[i], Protime & INR (92458) Draw Drawn (Normal) 11:33 BMP Comments: Items [...] Dose? 10/29/2012 8:00 PMDosage? 0.25 mg Daily (12323) DIG 1.64 ng/mL (Normal) Range: 0.90-2.00 14-Oct-2012 PSA (PROSTATE SPECIFIC Comments: A copy of this report will be faxed to: Bettie Boswell in this order include: Draw Charge[i], Protime & INR, PSAPSA allowed more than once a year due to being a Diagonistic PSA not a screening PSA 10:25 ANTIGEN) (84858) PSA 8.11 ng/mL (Abnormal) Range: 0.00-4.00 10:25 PT (PROTHROMBIN TIME) Comments: PSA allowed more than once a year due to being a Diagonistic PSA not a screening PSACoumadin dosage=5,5,5,5,7.5 repeatDoes patient have a artifical heart valve? No ([facility]) (07704) 7. Saturday Dosage 7.5 mg (Normal) 6. [...] a Diagonistic PSA not a screening PSA (22643) Draw Drawn (Normal) 12-Sep-2012 PT (PROTHROMBIN TIME) Comments: Items in this order include: Draw Charge[i], Protime & INRDoes patient have a artifical heart valve? No 09:16 ([facility]) (95047) 6. Saturday Dosage Repeat mg (Normal) 5. Dosage 7.5 mg (Normal) 4. Saturday Dosage 5.0 mg (Normal) 3. Saturday Dosage 5.0 mg (Normal) 2. Saturday Dosage 5.0 mg (Normal) 1. Saturday Dosage 5.0 mg (Normal) INR 2.48 (Normal) PT 25.7 s (Abnormal) Range: 10.4-12.4 09:16 Routine Venipuncture Comments: Items in this order include: Draw Charge[i], Protime & INR (50739) Draw Drawn (Normal) 18-Aug-2012 PT (PROTHROMBIN TIME) Comments: Items in this order include: Protime & INRDoes patient have a artifical heart valve? No 11:44 ([facility]) (53841) 7. Saturday Dosage 5.0 mg (Normal) 6. [...] Days ago. Check by KB (HGB A1C) (90107) A1C 6.2 % (Normal) Range: 4.6-6.2 Comments: High risk of diabetes. 31-Jul-2012 PT (PROTHROMBIN TIME) Comments: Items in this order include: Draw Charge[i], Protime & INRINR value > 3.0 given to Estella by Beny Buckley patient have a artifical heart valve? No 13:32 ([facility]) (38466) 7. Saturday Dosage 5.0 mg (Normal) 6. [...] order include: Draw Charge[i], Protime & INR (87084) Draw Drawn (Normal) 23-Jun-2012 PSA (PROSTATE SPECIFIC Comments: A copy of this report will be faxed to: Bettie Boswell in this order include: Draw Charge[i], Protime & INR, PSAPSA allowed more than once a year due to being a Diagonistic PSA not a screening PSA 15:50 ANTIGEN) (80075) PSA 8.05 ng/mL (Abnormal) Range: 0.00-4.00 15:50 PT (PROTHROMBIN TIME) Comments: A copy of this report will be faxed to: Bettie Boswell in this order include: Draw Charge[i], Protime & INR , PSAPSA allowed more than once a year due to being a Diagonistic PSA not a screening ([facility]) (64440) PSADoes patient have a artifical heart valve? [...] a Diagonistic PSA not a screening PSA (10886) Draw Drawn (Normal) 13-May-2012 Draw Charge[i] Comments: [...] results to dr. hema boswell 14:28 ANTIGEN) (87279) PSA 16.45 ng/mL (Abnormal) Range: 0.00-4.00 14:28 PT (PROTHROMBIN TIME) Comments: Coumadin Dosage=5,5,5,7.5 Repeat. Took 7.5 on 04-27-12. ([facility]) (08610) 5. Dosage 7.5 Repeat mg (Normal) 4. Saturday Dosage 5.0 mg (Normal) 3. Saturday Dosage 5.0 mg (Normal) 2. Saturday Dosage 5.0 mg (Normal) 1. Saturday Dosage 7.5 mg (Normal) INR 2.17 (Normal) PT 22.7 s (Abnormal) Range: 10.4-12.4 14:28 Routine Venipuncture (46558) Draw Drawn (Normal) 13-May-2012 PSA (PROSTATE SPECIFIC Comments: A copy of this report will be faxed to: Bettie Boswell in this order include: PSA, Draw Charge[i]PSA allowed more than once a year due to being a Diagonistic PSA not a screening PSA 09:20 ANTIGEN) (37965) PSA 11.30 ng/mL (Abnormal) Range: 0.00-4.00 TSH (THYROID Comments: Items in this order include: TSH 16:40 STIMULATING HORMONE) (40715) TSH 1.36 uIU/ml (Normal) Range: 0.34-5.60 14:50 PT (PROTHROMBIN TIME) Comments: Items in this order include: Draw Charge[i], Basic Metabolic Panel, Hemoglobin A1C, Protime & INRLast Hbg A1C was ran 218 Days ago. Check by DL ([facility]) (51179) 5. Dosage Repeat mg (Normal) 4. Saturday [...] ran 218 Days ago. Check (HGB A1C) (52837) by DLplease draw enough blood so if [...] ran 218 Days ago. Check by DL (75772) Draw Drawn (Normal) [id number] DIGOXIN, DRUG ASSAY Comments: Items in this order include: CBC, Comprehensive Metabolic Panel, CKI, Digoxin, Draw Charge[i] 09:08 (19542) DIG 0.38 ng/mL (Abnormal) Range: 0.90-2.00 09:08 CK Comments: Items in this order include: CBC, Comprehensive Metabolic Panel, CKI, Digoxin, Draw Charge[i] CKI 143 U/L (Normal) Range: 39-308 09:08 CMP (84547) Comments: Items in this order include: CBC, [...] Metabolic Panel, CKI, Digoxin, Draw Charge[i] ONE! (26017) manual diff Not Indicated (Normal) mpv 6.84 [...] order include: Protime & INR, Draw Charge[i] (26318) Draw Drawn (Normal) 16:45 PT (PROTHROMBIN TIME) Comments: Items in this order include: Protime & INR, Draw Charge[i]Coumadin doasage=5,5,7.5 Repeat ([facility]) (29274) 7. Saturday Dosage 5.0 mg (Normal) 6. [...] order include: Draw Charge[i], PSA 11:11 ANTIGEN) (65481) PSA 6.92 ng/mL (Abnormal) Range: 0.00-4.00 11:11 Routine Venipuncture Comments: A copy of this report will be faxed to: Bettie Boswell in this order include: Draw Charge[i], PSA (12751) Draw Drawn (Normal) 17-Oct-2011 Routine Venipuncture 10:18 (02631) Draw Drawn (Normal) 10:18 TESTOSTERONE, FREE, Comments: Items in this order include: Protime & INR, Draw Charge[i], TESTOSTERONE, FREE, BIOAVAILABLE, AND TOTAL, LC/MS/ MSTesting performed at: [place], [address] [address], [place], [address], Pediatric Dental Hygienist: Michael Chávez [facility] TOTAL, LC/MS/MS ALBUMIN,SERUM 4.4 [...] and benefits counseling. 10:18 PT (PROTHROMBIN TIME) ([facility]) (86449) 7. Saturday Dosage 5.0 mg (Normal) 6. [...] Panel, Hemoglobin A1C, Draw Charge[i] (HGB A1C) (84339) A1C 6.1 % (Normal) Range: 4.6-6.2 13:29 [...] (Normal) Range: 135-145 13:29 DIGOXIN, DRUG ASSAY (61574) DIG 0.85 ng/mL (Abnormal) Range: 0.90-2.00 07-Aug-2011 TESTOSTERONE, FREE, Comments: Items in this order include: TESTOSTERONE, FREE, BIOAVAILABLE, AND TOTAL, LC/MS/MSTesting performed at: [place], [address] [address], [place] , [address], [place] 12:53 WEAKLY BOUND AND TOTAL ratory Director: Michael Chávez MD.[facility] (95940) ALBUMIN,SERUM 4.4 g/dL (Normal) Range: 3.6-5.1 SEX [...] INR, Draw Charge[i]no change in coumadin dose ([facility]) (45118) 7. Saturday Dosage 7.5 mg (Normal) 6. [...] Metabolic Panel, Protime & INR, Draw Charge[i] ([facility]) (29231) 7. Saturday Dosage 5.0 mg (Normal) 5. [...] Boswell in this order include: PSA ANTIGEN) (50177) PSA 5.95 ng/mL (Abnormal) Range: 0.00-4.00 CBC-MALE- ORDER THIS Comments: Items in this order include : Hemoglobin A1C, Comprehensive Metabolic Panel, CBC 11:56 ONE! (51044) manual diff Not Indicated (Normal) mpv 7.65 [...] 6.24 10*3/uL (Normal) Range: 4.50-10.50 11:56 CMP (09455) Comments: Items in this order include: Hemoglobin [...] this order include: Digoxin, Draw Charge[i] 15:17 (32340) DIG 1.18 ng/mL (Normal) Range: 0.90-2.00 HEMOGLOBIN GLYCLATED Comments: Items in this order include: Hemoglobin A1C, Comprehensive Metabolic Panel, CBC 11:56 (HGB A1C) (79331) A1C 6.6 % (Abnormal) Range: 4.6-6.2 Comments: Consistent with diabetes. 13:48 PT (PROTHROMBIN TIME) Comments: change to coumadin 5mg x 2 day then 7.5mg x1 repeat the cycle; Items in this order include: Protime & INR, Draw Charge[i]cyclechange to coumadin 5mg x 2 day then 7.5mg x1 repeat the ([facility]) (08911) 6. Saturday Dosage 7.5 mg (Normal) 7. [...] & INR, PSA, Draw Charge[i] 09:43 ANTIGEN) (12944) PSA 5.84 ng/mL (Abnormal) Range: 0.00-4.00 09:43 PT (PROTHROMBIN TIME) Comments: no change in coumadin; no change in coumadin ([facility]) (94277) 7. Saturday Dosage 7.5 mg (Normal) 6. Saturday Dosage 5.0 mg (Normal) 5. Dosage 7.5 mg (Normal) 4. Saturday Dosage 5.0 mg (Normal) 3. Saturday Dosage 5.0 mg (Normal) 1. Saturday Dosage 5.0 mg (Normal) 2. Saturday Dosage 7.5 mg (Normal) INR 3.45 (Normal) PT 32.9 s (Abnormal) Range: 10.4-12.4 23-Nov-2010 PT (PROTHROMBIN TIME) 10:03 ([facility]) (55794) 6. Saturday Dosage 7.5 mg (Normal) 7. Saturday Dosage 5 mg (Normal) 1. Saturday Dosage 5 mg (Normal) 2. Saturday Dosage 7.5 mg (Normal) 3. Saturday Dosage 5 mg (Normal) 4. Saturday Dosage 7.5 mg (Normal) 5. Dosage 5 mg (Normal) INR 2.16 (Normal) PT 21.0 s (Abnormal) Range: 10.4-12.4 19-Oct-2010 PT (PROTHROMBIN TIME) 15:16 ([facility]) (40992) 6. Saturday Dosage 5 mg (Normal) 7. Saturday Dosage 7.5 mg (Normal) 3. Saturday Dosage 7.5 mg (Normal) 4. Saturday Dosage 5 mg (Normal) 5. Dosage 7.5 mg (Normal) 1. Saturday Dosage 7.5 mg (Normal) 2. Saturday Dosage 5 mg (Normal) INR 2.13 (Normal) PT 20.7 s (Abnormal) Range: 10.4-12.4 12-Sep-2010 PT (PROTHROMBIN TIME) 11:03 [place] [place] (61500) INR 2.57 (Normal) PT (PROTHROMBIN TIME) 24.8 s (Abnormal) Range: 11.5-13.5 22-Aug-2010 PT (PROTHROMBIN TIME) 13:41 ([facility] [place] ([id number]) 09-Aug-2010 PSA, MEDICARE (G0103) Comments: please fax to dr hema boswell 09:54 PSA (Medicare) 4.83 ng/mL (Abnormal) Range: 0 - 4 09:34 PT (PROTHROMBIN TIME) ([facility] [place] (38734) INR 2.68 (Normal) PT (PROTHROMBIN TIME) 25.8 s (Abnormal) Range: 11.5-13.5 27-Jun-2010 PT (PROTHROMBIN TIME) 08:38 ([facility] [place] (28611) 26-Jun-2010 PT (PROTHROMBIN TIME) 16:21 ([facility] [place]) ([id number]) INR 1.89 (Normal) PT (PROTHROMBIN TIME) 18.4 s (Abnormal) Range: 11.5-13.5 Treatment Plan LIPID PANEL (48436); Ordered: 10/28/2015; Note: Verbal order from Dr. [...] problems with his a-fib at todays visit. 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 He said he is having quite a bit of pain with the nodule and some occasional drainage. Seems to be recurrent for him. 09:10 to 09:52 [facility] Office Visit - PG (pyogenic [...] nail problems": He continues with his usual medications.[facility] Lab entry only - Encounter for long-term (current) use of anticoagulants ( V58.61 | Z79.01) On 07-Jul-2015 [facility] 16:55 to 16:56 Office Visit [...] the stairs and I have to crawl. [facility] Historical Summary On [facility] 12:33 to 12:36 Lab entry only - Encounter for long-term (current) use of anticoagulants ( V58.61 | Z79.01) On [facility] 17:37 to 17:39 Lab entry only - Elevated PSA (790.93) On [facility] 10:10 to 10:11 Lab entry only - Encounter for long-term (current) use of anticoagulants ( V58.61 | Z79.01), Encounter for long-term (current) use of anticoagulants ( V58.61 | Z79.01) On 14-Jan-2015 [facility] 14:52 to 14:53 Lab entry only - Encounter for long-term (current) use of anticoagulants ( V58.61 | Z79.01), Encounter for long-term (current) use of anticoagulants ( V58.61 | Z79.01) On 29-Nov-2014 [facility] 12:31 to 15:09 Medication Entry - Diabetes mellitus (250.00 | E11.9) On 12-Nov-2014 [facility] 11:46 to 11:53 Medication Entry - Cellulitis, leg (682.6 | L03.119) On 11-Nov-2014 [facility] 09:48 to 10:00 Office Visit [...] "Transition into care": He feels things are improved.[facility] Historical Summary On 27-Oct-2014 [facility] 15:03 to 15:08 Lab entry only - Fibrillation, atrial (427.31), Encounter for long-term ( current) use of anticoagulants (V58.61 | Z79.01) On 18-Oct-2014 [facility] 17:08 to 17:09 Medication Entry - Gout (274.9 | M10.9) On 12-Oct-2014 [facility] 16:17 to 16:22 Lab entry only - Encounter for long-term (current) use of anticoagulants ( V58.61 | Z79.01) On 21-Sep-2014 [facility] 15:31 to 15:33 Radiology Visit - Carotid stenosis (433.10 | I65.29) On 14-Sep-2014 [facility] 09:33 to 09:36 Lab entry only - Encounter for long-term (current) use of anticoagulants ( V58.61 | Z79.01) On 24-Aug-2014 [facility] 16:31 to 16:34 Office Visit - Health education (V65.40 | Z71.9), Prevnar (PCV13)FOR MEDICARE USE ONLY Pneumovax injection (V03.82) 11561, Encounter for long-term ( current) use of [...] lifeline screening. He mentions the "discoloration" of ankles.[facility] Historical Summary On 11-Aug-2014 [facility] 16:16 to 16:19 Lab entry only - Fibrillation, atrial (427.31), Encounter for long-term ( current) use of anticoagulants (V58.61 | Z79.01) On 06-Aug-2014 [facility] 16:41 to 16:43 Medication Entry - Benign essential hypertension (401.1 | I10) On 21-Jun-2014 [facility] 11:12 to 11:14 Lab entry only - Encounter for long-term (current) use of anticoagulants ( V58.61 | Z79.01) On 03-Jun-2014 [facility] 16:13 to 16:15 Lab entry only - Encounter for long-term (current) use of anticoagulants ( V58.61 | Z79.01) On [facility] 13:22 to 13:23 Lab entry only - Elevated PSA (790.93), Encounter for long-term (current) use of anticoagulants (V58.61 | Z79.01) On [facility] 14:27 to 14:28 Office Visit [...] thing in the morning and on stairs. [facility] Historical Summary On 28-Dec-2013 [facility] 12:26 to 12:29 Medication Entry - Encounter for long-term (current) use of anticoagulants ( V58.61 | Z79.01), Diabetes mellitus (250.00 | E11.9), Fibrillation, atrial ( 427.31) On 03-Nov-2013 [facility] 09:01 to 11:53 Medication Entry - Fibrillation, atrial (427.31), Diabetes mellitus (250.00 | E11.9) On 30-Oct-2013 [facility] 15:55 to 16:00 Lab entry only - Encounter for long-term (current) use of anticoagulants ( V58.61 | Z79.01) On 27-Oct-2013 [facility] 17:57 to 17:59 Office Visit [...] M.D. after being in the hospital at [facility] on 10/16/13 & discharged on 10/17/13 dx jasmeet diaz, inr was done prior to visit.) . Note for "Transition into care": He passed a kidney stone a week ago.[facility] Historical Summary On 23-Oct-2013 [facility] 14:42 to 14:45 Lab entry only - Encounter for long-term (current) use of anticoagulants ( V58.61 | Z79.01) On 20-Oct-2013 [facility] 16:31 to 16:33 Lab entry only - Encounter for long-term (current) use of anticoagulants ( V58.61 | Z79.01) On 16-Sep-2013 [facility] 10:14 to 10:15 Lab entry only - Elevated PSA (790.93) On 15-Sep-2013 [facility] 11:11 to 11:12 Lab entry only - Encounter for long-term (current) use of anticoagulants ( V58.61 | Z79.01) On 07-Aug-2013 [facility] 14:32 to 14:33 Lab entry only - Benign essential hypertension (401.1 | I10), Diabetes mellitus (250.00 | E11.9) On 07-Aug-2013 [facility] 11:18 to 11:19 Lab entry only - Encounter for long-term (current) use of anticoagulants ( V58.61 | Z79.01) On 01-May-2013 [facility] 10:33 to 10:38 Office Visit [...] He did miss some meds while he traveled.[facility] Historical Summary On 29-Apr-2013 [facility] 11:46 to 11:49 Lab entry only - Encounter for long-term (current) use of anticoagulants ( V58.61 | Z79.01) On [facility] 16:39 to 16:42 Lab entry only - Encounter for long-term (current) use of anticoagulants ( V58.61 | Z79.01) On [facility] 19:40 to 19:42 Lab entry only - Elevated PSA (790.93) On [facility] 12:03 to 12:07 Office Visit [...] for "Cough": He has not had an antibiotic.[facility] Lab entry only - Encounter for long-term (current) use of anticoagulants ( V58.61 | Z79.01) On 16-Dec-2012 [facility] 18:21 to 18:23 Lab entry only - Encounter for long-term (current) use of anticoagulants ( V58.61 | Z79.01) On 27-Nov-2012 [facility] 16:52 to 16:53 Lab entry only - Encounter for long-term (current) use of anticoagulants ( V58.61) On 26-Nov-2012 [facility] 15:04 to 15:05 Office Visit [...] first thing in the morning and on stairs.[facility] Historical Summary On 29-Oct-2012 [facility] 16:15 to 16:17 Lab entry only - Encounter for long-term (current) use of anticoagulants ( V58.61) On 15-Oct-2012 [facility] 09:51 to 09:57 Lab entry only - Encounter for long-term (current) use of anticoagulants ( V58.61), Elevated PSA (790.93) On 14-Oct-2012 [facility] 10:25 to 10:26 Lab entry only - Encounter for long-term (current) use of anticoagulants ( V58.61) On 12-Sep-2012 [facility] 13:44 to 13:45 Medication Entry - Edema (782.3), Fibrillation, atrial (427.31) On 20-Aug-2012 [facility] 11:10 to 11:12 Medication Entry - Fibrillation, atrial (427.31), Edema (782.3) On 19-Aug-2012 [facility] 17:29 to 18:11 Medication Entry - Encounter for long-term (current) use of anticoagulants ( V58.61), Fibrillation, atrial (427.31), Diabetes mellitus (250.00) On 2011 [facility] 17:44 to 17:53 Office Visit - 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), Inflamed seborrheic keratosis (702.11), Hyperglycemia (790.29), Encounter for long-term (current) use of anticoagulants (V58.61), Fibrillation, atrial (427.31) On 01-Aug-2012 Encounter Reason: Follow up for chronic condition - The patient feels well with minor complaints (here today for a 3 month follow up with Dr. Romero ) .[facility] 09:34 to 10:39 Medication Entry - Encounter for long-term (current) use of anticoagulants ( V58.61) On 31-Jul-2012 [facility] 18:21 to 18:22 Historical Summary On 31-Jul-2012 [facility] 11:40 to 11:42 Lab entry only - Encounter for long-term (current) use of anticoagulants ( V58.61) On 23-Jun-2012 [facility] 18:47 to 18:52 Lab entry only - Elevated PSA (790.93), Encounter for long-term (current) use of anticoagulants (V58.61) On 23-Jun-2012 [facility] 15:48 to 15:53 Office Visit - Adjustment disorder with depressed mood (309.0), Encounter for long-term (current) use of anticoagulants (V58.61), Elevated PSA (790.93) On Encounter Reason: Follow up for chronic condition - The patient feels well with minor complaints (here for a 6 week follow up visit do to a new medication but did not start the medication).[facility] 11:19 to 13: 39 Historical Summary On 30-Apr-2012 [facility] 11:50 to 11:52 Lab entry only - Encounter for long-term (current) use of anticoagulants ( V58.61) On 28-Apr-2012 [facility] 17:23 to 17:26 Lab entry only - Elevated PSA (790.93), Encounter for long-term (current) use of anticoagulants (V58.61) On 28-Apr-2012 [facility] 14:19 to 14:22 Office Visit [...] , had lab done prior to appt today).[facility] Lab entry only - Edema (782.3), Hyperglycemia (790.29), Encounter for long- term (current) use of anticoagulants (V58.61) On [facility] 11:06 to 11:14 Lab entry only - Elevated PSA (790.93), Fibrillation, atrial (427.31), Edema ( 782.3) On [facility] 09:02 to 09:05 Lab entry only - Encounter for long-term (current) use of anticoagulants ( V58.61) On [facility] 16:44 to 16:45 Medication Entry On 26-Oct-2011 [facility] 13:30 to 13:32 Lab entry only - Elevated PSA (790.93) On 23-Oct-2011 [facility] 11:01 to 11:04 Lab entry only - Encounter for long-term (current) use of anticoagulants ( V58.61), Low testosterone (257.2) On 17-Oct-2011 [facility] 10:15 to 10:17 Medication Entry - Fibrillation, atrial (427.31) On 04-Oct-2011 [facility] 09:26 to 09:38 Medication Entry - Fibrillation, atrial (427.31), Edema (782.3), Encounter for long-term (current) use of anticoagulants (V58.61), Benign prostatic hypertrophy without lower urinary tract symptoms (LUTS) (600.00) On 02-Oct-2011 [facility] 18:56 to 19:02 Medication Entry - Encounter for long-term (current) use of anticoagulants ( V58.61), Fibrillation, atrial (427.31), Edema (782.3) On 26-Sep-2011 [facility] 11:06 to 11:11 Medication Entry - Fibrillation, atrial (427.31), Encounter for long-term ( current) use of anticoagulants (V58.61) On 24-Sep-2011 [facility] 10:41 to 10:49 Lab entry only - Low testosterone (257.2) On 10-Aug-2011 [facility] 13:03 to 13:05 Lab entry only - Hyperglycemia (790.29), Encounter for long-term (current) use of anticoagulants (V58.61), Fibrillation, atrial (427.31) On 08-Aug-2011 [facility] 13:27 to 13:29 Office Visit [...] he 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." [facility] Historical Summary On 06-Aug-2011 [facility] 12:22 to 12:24 Medication Entry - Fibrillation, atrial (427.31) On 05-Jun-2011 [facility] 08:54 to 08:59 Lab entry only - Encounter for long-term (current) use of anticoagulants ( V58.61) On 15-May-2011 [facility] 18:48 to 18:50 Office Visit [...] up is diabetes, hypertension, cardiovascular disorder and other.[facility] Medication Entry - Benign prostatic hypertrophy without lower urinary tract symptoms (LUTS) (600.00) On 19-Apr-2011 [facility] 08:49 to 08:51 Lab entry only - Benign prostatic hypertrophy without lower urinary tract symptoms (LUTS) (600.00) On 10-Apr-2011 [facility] 15:15 to 15:19 Office Visit [...] seeing dr. boswell the middle of apr.). [facility] Historical Summary On [facility] 16:05 to 16:18 Lab entry only - Encounter for long-term (current) use of anticoagulants ( V58.61) On [facility] 17:34 to 17:36 Lab entry only - Encounter for long-term (current) use of anticoagulants ( V58.61), Elevated PSA (790.93) On [facility] 09:42 to 09:43 Lab entry only - Encounter for long-term (current) use of anticoagulants ( V58.61) On 24-Nov-2010 [facility] 08:55 to 08:57 Lab entry only - Encounter for long-term (current) use of anticoagulants ( V58.61) On 20-Oct-2010 [facility] 14:42 to 14:46 Historical Summary - Encounter for long-term (current) use of anticoagulants ( V58.61) On 13-Sep-2010 [facility] 10:53 to 10:59 Historical Summary 12-Sep-2010 to 13-Sep-2010 [facility] Lab entry only - Encounter for long-term (current) use of anticoagulants ( V58.61) On 14-Aug-2010 [facility] 17:44 to 17:49 Historical Summary - Elevated PSA (790.93) 09-Aug-2010 to 15-Aug-2010 [facility] Lab entry only - Encounter for long-term (current) use of anticoagulants ( V58.61) 27-Jun-2010 to 28-Jun-2010 [facility] Lab entry only - Encounter for long-term (current) use of anticoagulants ( V58.61) On 26-Jun-2010 [facility] 16:21 to 22:23 Insurance Vijay Yuan; gwen guarantorMedicare [employer] [facility] [employer]
--- OUTSIDE RECORDS SUMMARY | 2017-10-22 17:52 | External Medical Summary | Continuity of Care Document ---
:1940 Author Organization [facility] Address [address] [place] [address] Phone Care Team Providers Name Role Phone [...] Prevnar (PCV13)FOR MEDICARE USE ONLY Pneumovax injection 45664 (V03.82) Status: Active Renal lithiasis (592.0, N20.0) [...] Comments:started on 10/17/13 after being dismissed from [facility] for kidney stone by cac CITALOPRAM [...] dx kidney stone from being discharged from [facility] testrone cream 10% apply 0.5ml daily [...] appt as scheduled Ordered:28-Oct-2014 CAROTID BILATERAL US ([id number]) Completed:14-Sep-2014 Comments: Verbal order from Dr. James Romero Follow up in 6 months Ordered:12-Aug-2014 PREVNAR 13 VALENT PNEUMOCOCCAL Completed:12-Aug-2014 VACCINE (77940) ADMINISTRATION OF PNEUMOCOCCAL Ordered:12-Aug-2014 CONJUGATE VACCINE (G0009) How to access health information Completed:12-Aug-2014 online Follow up in 6 months Ordered: Follow up in 2 months Ordered:26-Oct-2013 ADMIN INFLUENZA VIRUS VAC: FLU VACC Completed:26-Oct-2013 PRSV FREE INC ANTIG (72249) ADMINISTRATION OF INFLUENZA VIRUS Ordered:26-Oct-2013 VACCINE (G0008) Follow up in 6 months Ordered:30-Apr-2013 Follow up - Keep appt as scheduled Ordered:02-Jan-2013 Follow up in 6 months Ordered:30-Oct-2012 Follow up in 3 months Ordered:01-Aug-2012 Follow up in 3 months Ordered:01-May-2012 Follow up in 6 weeks Ordered: ADMINISTRATION OF INFLUENZA VIRUS Ordered:14-May-2011 VACCINE (G0008) FLU VACC PRSV FREE INC ANTIG Completed:14-May-2011 ([id number]) Follow up in 2 months Ordered:14-May-2011 Follow up in 2 months Ordered: Annual Eye Exam Completed:22-Nov-2008 Colonoscopy, Screening Completed: Colonoscopy, Screening Completed:06-Oct-2014 Flu Vaccine Completed:26-Oct-2013 Flu Vaccine Completed:06-Jun-2012 Comments: [facility] Flu Vaccine Completed:14-May-2011 Comments: high dose Pneumovax Completed:2008 13 Completed:12-Aug-2014 PSA Completed:28-Apr-2012 Comments: (16.45) PSA Completed:10-Apr-2011 Comments: (5.95) PSA Completed:23-Jun-2012 Comments: (8.05) PSA Completed:14-Oct-2012 Comments: (8.11) PSA Completed: Comments: (5.60) PSA Completed:15-Sep-2013 Comments: (5.40) PSA Completed: Comments: (6.15) PSA Completed:24-Aug-2014 Comments: (7.11) Immunization Name Dates Details Fluzone Administered on:14-May-2011 Comments: Site: Deltoid (Left); high dose Lot #: [id number] Influenza, preserv. free, enhanced immunogncty, IM Administered on:2013 Comments: Site: Deltoid (Left) Lot #: [id number] Pneumococcal conjugate vaccine, 13 valent, IM Administered on:12-Aug-2014 Comments: Site: Deltoid (Left) Lot #: [id number] Social History Name Dates Details Tobacco use: [...] Comments: The left neck Final 10:36 SINGLE (93590) lesion was removed and also the left [...] not sent to pathology. 10:35 PUNCH BIOPSY (40763) Comments: After Final FIRST BIOPSY cleansing the left forearm with Hibiclens solution x3, the area was anesthetized with 1 cc 1% lidocaine and a 2 mm punch was used and elevated with sterile scissors and sent to pathology. Silver nitrate stick was for cautery. 14-Jan-2015 PT (PROTHROMBIN TIME) Comments: Items in this order include: Draw Charge[i], Protime & INRDoes patient have a artifical heart valve? No 09:28 (MyDROBE) (84287) 9. Saturday Dosage 5.0 mg (Normal) 7. [...] order include: Draw Charge[i], Protime & INR (34536) Draw Drawn (Normal) 28-Oct-2014 PT (PROTHROMBIN TIME) Comments: Items in this order include: Draw Charge[i], Protime & INRDoes patient have a artifical heart valve? No 10:48 (MyDROBE) (60824) 9. Saturday Dosage 7.5 mg (Normal) 8. [...] order include: Draw Charge[i], Protime & INR (56972) Draw Drawn (Normal) 29-Nov-2014 PT (PROTHROMBIN TIME) Comments: Items in this order include: Draw Charge[i], Protime & INRDoes patient have a artifical heart valve? No 10:28 (MyDROBE) (65915) 9. Saturday Dosage 5.0 mg (Normal) 8. [...] order include: Draw Charge[i], Protime & INR (44953) Draw Drawn (Normal) 21-Sep-2014 PT (PROTHROMBIN TIME) Comments: Items in this order include: Draw Charge[i], Protime & INRDoes patient have a artifical heart valve? No 10:08 (MyDROBE) (45392) 9. Saturday Dosage 5.0 mg (Normal) 7. [...] order include: Draw Charge[i], Protime & INR (88789) Draw Drawn (Normal) 24-Aug-2014 Routine Venipuncture Comments: Items in this order include: Protime & INR, Draw Charge[i] 09:59 (57410) Draw Drawn (Normal) 09:59 PT (PROTHROMBIN TIME) Comments: Items in this order include: Protime & INR, Draw Charge[i]INR value > 3.0 given to Estella by Beny Buckley patient have a artifical heart valve? No ([facility]) (66408) 9. Saturday Dosage 7.5 mg (Normal) 7. [...] Panel, Hemoglobin A1C, Urine Microalbumin, CBC ONE! (84540) manual diff Not Indicated (Normal) mpv 9.60 [...] Metabolic Panel, Hemoglobin A1C, Urine Microalbumin, CBC (28803) U A:C RATIO <30 mg/g Normal Range: <30 mg/g Normal (Normal) U CREAT 200 mg/dL (Normal) Range: 10-300 U ALB 80 mg/L (Abnormal) Range: 10 mg/L 09:59 HEMOGLOBIN GLYCLATED Comments: Items in this order include: Digoxin , PSA, Basic Metabolic Panel, Hemoglobin A1C, Urine Microalbumin, CBC (HGB A1C) (30180) A1C 5.9 % (Normal) Range: 4.6-6.2 Comments: Increased risk of diabetes. 09:59 [facility] (33944) Comments: Items in this order include: Digoxin, [...] Panel, Hemoglobin A1C, Urine Microalbumin, CBC ANTIGEN) (01352) PSA 7.11 ng/mL (Abnormal) Range: 0.00-4.00 09:59 DIGOXIN (85481) Comments: Items in this order include: Digoxin, PSA , Basic Metabolic Panel, Hemoglobin A1C, Urine Microalbumin, CBCTime of Last Dose? 08/23/2014 8:00 AMDosage? 0.25 DIG 0.36 ng/mL (Abnormal) Range: 0.90-2.00 05-Aug-2014 PT (PROTHROMBIN TIME) Comments: Items in this order include: Draw Charge[i], Protime & INRDoes patient have a artifical heart valve? No 10:48 (MyDROBE) (05804) 8. Saturday Dosage 7.5 mg (Normal) 9. [...] order include: Draw Charge[i], Protime & INR (07606) Draw Drawn (Normal) 03-Jun-2014 PT (PROTHROMBIN TIME) Comments: Items in this order include: Draw Charge[i], Protime & INRDoes patient have a artifical heart valve? No 13:56 (MyDROBE) (10742) 9. Saturday Dosage 7.5 mg (Normal) 8. [...] order include: Draw Charge[i], Protime & INR (25008) Draw Drawn (Normal) PT (PROTHROMBIN TIME) Comments: Items in this order include: Protime & INRDoes patient have a artifical heart valve? No 14:25 ([facility]) (28206) 9. Saturday Dosage 5.0 mg (Normal) 8. [...] this order include: Draw Charge[i], PSA ANTIGEN) (13114) PSA 6.15 ng/mL (Abnormal) Range: 0.00-4.00 14:25 Routine Venipuncture Comments: A copy of this report will be faxed to: Bettie Boswell in this order include: Draw Charge[i], PSA (44430) Draw Drawn (Normal) HEMOGLOBIN GLYCLATED Comments: Items in this order include: Hemoglobin A1C, Draw Charge[i], Comprehensive Metabolic Panel, Uric Acid 15:06 (HGB A1C) (27209) A1C 5.7 % (Normal) Range: 4.6-6.2 15:06 CMP (69878) Comments: Items in this order include: Hemoglobin [...] (Normal) Range: 135-145 15:06 URIC ACID BLOOD (02910) Comments: Items in this order include: Hemoglobin A1C, Draw Charge[i], Comprehensive Metabolic Panel, Uric Acid Uric Acid 8.0 mg/dL (Abnormal) Range: 3.6-7.7 15:06 Routine Venipuncture Comments: Items in this order include: Hemoglobin A1C, Draw Charge[i], Comprehensive Metabolic Panel, Uric Acid (54045) Draw Drawn (Normal) -January-2014 PT (PROTHROMBIN TIME) Comments: Items in this order include: Draw Charge[i], Protime & INRDoes patient have a artifical heart valve? No 14:27 ([facility]) (97037) 8. Saturday Dosage 5.0 mg (Normal) 9. [...] order include: Draw Charge[i], Protime & INR (08595) Draw Drawn (Normal) 26-Oct-2013 Draw Charge[i] Comments: Items in this order include: Basic Metabolic Panel, Draw Charge[i] 17:08 Draw Drawn (Normal) 17:05 [facility] (92235) Comments: Items in this order include: Basic [...] patient have a artifical heart valve? No ([facility]) (38997) 9. Saturday Dosage 5.0 mg (Normal) 7. [...] order include: Draw Charge[i], Protime & INR (75640) Draw Drawn (Normal) 15-Sep-2013 PSA (PROSTATE SPECIFIC Comments: A copy of this report will be faxed to: Bettie Boswell in this order include: A COPY TO [kyung] PSAPSA allowed more than once a year due to being a Diagonistic PSA not a screening PSA 11:05 ANTIGEN) (09161) PSA 5.40 ng/mL (Abnormal) Range: 0.00-4.00 11:05 [...] this order include: Comprehensive Metabolic Panel, Hemoglobin [id number] Hgb A1C was ran 99 Days ago. Check by MARGARITA 10:38 (HGB A1C) (81759) A1C 5.9 % (Normal) Range: 4.6-6.2 Comments: Increased risk of diabetes. 10:38 [facility] (83777) Comments: Items in this order include: Comprehensive Metabolic Panel, Hemoglobin [id number] Hgb A1C was ran 99 Days ago. [...] patient have a artifical heart valve? No ([facility]) (51903) 9. Saturday Dosage 5.0 (cycle of 5,5,7.5 [...] order include: Draw Charge[i], Protime & INR (64006) Draw Drawn (Normal) 10:38 DIGOXIN (68486) Comments: Items in this order include: DigoxinTime of Last Dose? 08/06/2013 8:30 AMDosage? 0.25 mg daily DIG 0.48 ng/mL (Abnormal) Range: 0.90-2.00 30-Apr-2013 HEMOGLOBIN GLYCLATED Comments: Items in this order include: Comprehensive Metabolic Panel, CBC, Hemoglobin [id number] Hgb A1C was ran 225 Days ago. Check by ms 11:58 (HGB A1C) (15576) A1C 6.1 % (Normal) Range: 4.6-6.2 11:58 CBC MALE- ORDER THIS Comments: Items in this order include: Comprehensive Metabolic Panel, CBC, Hemoglobin [id number] Hgb A1C was ran 225 Days ago. Check by ms ONE! (50093) manual diff Not Indicated (Normal) mpv 4.88 [...] 6.15 10*3/uL (Normal) Range: 4.50-10.50 11:58 CMP (35240) Comments: Items in this order include: Comprehensive Metabolic Panel, CBC, Hemoglobin [id number] Hgb A1C was ran 225 Days ago. [...] patient have a artifical heart valve? No ([facility]) (35535) 4. Saturday Dosage Repeat mg (Normal) 3. Saturday Dosage 7.5 mg (Normal) 2. Saturday Dosage 5.0 mg (Normal) 1. Saturday Dosage 5.0 mg (Normal) INR 2.60 (Normal) PT 26.8 s (Abnormal) Range: 10.4-12.4 PT (PROTHROMBIN TIME) Comments: Items in this order include: Draw Charge[i], Protime & INRDoes patient have a artifical heart valve? No 15:12 ([facility]) (31998) 5. Dosage Repeat mg (Normal) 4. Saturday Dosage 5.0 mg (Normal) 3. Saturday Dosage 5.0 mg (Normal) 2. Saturday Dosage 7.5 mg (Normal) INR 2.31 (Normal) PT 24.0 s (Abnormal) Range: 10.4-12.4 15:12 Routine Venipuncture Comments: Items in this order include: Draw Charge[i], Protime & INR (79205) Draw Drawn (Normal) PSA (PROSTATE SPECIFIC Comments: A copy of this report will be faxed to: Bettie Boswell in this order include: PSA, Draw Charge[i]PSA allowed more than once a year due to being a Diagonistic PSA not a screening PSA 10:00 ANTIGEN) (01610) PSA 5.60 ng/mL (Abnormal) Range: 0.00-4.00 10:00 [...] patient have a artifical heart valve? No ([facility]) (44391) 3. Saturday Dosage Repeat mg (Normal) 2. Saturday Dosage 7.5 mg (Normal) 1. Saturday Dosage 5.0 mg (Normal) INR 2.64 (Normal) PT 27.2 s (Abnormal) Range: 10.4-12.4 10:09 Routine Venipuncture Comments: Items in this order include: Draw Charge[i], Protime & INR (47374) Draw Drawn (Normal) 16-Dec-2012 PT (PROTHROMBIN TIME) Comments: Items in this order include: Draw Charge[i], Protime & INRDoes patient have a artifical heart valve? No 10:46 ([facility]) (47272) 4. Saturday Dosage Repeat mg (Normal) 3. Saturday Dosage 5.0 mg (Normal) 2. Saturday Dosage 7.5 mg (Normal) INR 2.13 (Normal) PT 22.2 s (Abnormal) Range: 10.4-12.4 10:46 Routine Venipuncture Comments: Items in this order include: Draw Charge[i], Protime & INR (11372) Draw Drawn (Normal) 26-Nov-2012 Routine Venipuncture Comments: Items in this order include: Protime & INR, Draw Charge[i] 15:05 (99225) Draw Drawn (Normal) 15:05 PT (PROTHROMBIN TIME) Comments: Items in this order include: Protime & INR, Draw Charge[i]Does patient have a artifical heart valve? No ([facility]) (71083) 4. Saturday Dosage 5.0 Repeat mg (Normal) 3. Saturday Dosage 5.0 mg (Normal) 2. Saturday Dosage 7.5 mg (Normal) INR 1.34 (Normal) PT 14.4 s (Abnormal) Range: 10.4-12.4 30-Oct-2012 PT (PROTHROMBIN TIME) Comments: Items in this order include: Draw Charge[i], Protime & INRINR value > 3.0 given to BW by Froy Chávez patient have a artifical heart valve? No 10:38 ([facility]) (80808) 7. Saturday Dosage 7.5 mg (Normal) 6. [...] order include: Draw Charge[i], Protime & INR (92665) Draw Drawn (Normal) 11:33 BMP Comments: Items [...] Dose? 10/29/2012 8:00 PMDosage? 0.25 mg Daily (22359) DIG 1.64 ng/mL (Normal) Range: 0.90-2.00 14-Oct-2012 PSA (PROSTATE SPECIFIC Comments: A copy of this report will be faxed to: Bettie Boswell in this order include: Draw Charge[i], Protime & INR, PSAPSA allowed more than once a year due to being a Diagonistic PSA not a screening PSA 10:25 ANTIGEN) (33804) PSA 8.11 ng/mL (Abnormal) Range: 0.00-4.00 10:25 PT (PROTHROMBIN TIME) Comments: PSA allowed more than once a year due to being a Diagonistic PSA not a screening PSACoumadin dosage=5,5,5,5,7.5 repeatDoes patient have a artifical heart valve? No ([facility]) (41023) 7. Saturday Dosage 7.5 mg (Normal) 6. [...] a Diagonistic PSA not a screening PSA (01122) Draw Drawn (Normal) 12-Sep-2012 PT (PROTHROMBIN TIME) Comments: Items in this order include: Draw Charge[i], Protime & INRDoes patient have a artifical heart valve? No 09:16 (MyDROBE) (03379) 6. Saturday Dosage Repeat mg (Normal) 5. Dosage 7.5 mg (Normal) 4. Saturday Dosage 5.0 mg (Normal) 3. Saturday Dosage 5.0 mg (Normal) 2. Saturday Dosage 5.0 mg (Normal) 1. Saturday Dosage 5.0 mg (Normal) INR 2.48 (Normal) PT 25.7 s (Abnormal) Range: 10.4-12.4 09:16 Routine Venipuncture Comments: Items in this order include: Draw Charge[i], Protime & INR (33472) Draw Drawn (Normal) 18-Aug-2012 PT (PROTHROMBIN TIME) Comments: Items in this order include: Protime & INRDoes patient have a artifical heart valve? No 11:44 (MyDROBE) (61045) 7. Saturday Dosage 5.0 mg (Normal) 6. [...] Days ago. Check by KB (HGB A1C) (73376) A1C 6.2 % (Normal) Range: 4.6-6.2 Comments: High risk of diabetes. 31-Jul-2012 PT (PROTHROMBIN TIME) Comments: Items in this order include: Draw Charge[i], Protime & INRINR value > 3.0 given to Estella by Beny Buckley patient have a artifical heart valve? No 13:32 ([facility]) (28199) 7. Saturday Dosage 5.0 mg (Normal) 6. [...] order include: Draw Charge[i], Protime & INR (87434) Draw Drawn (Normal) 23-Jun-2012 PSA (PROSTATE SPECIFIC Comments: A copy of this report will be faxed to: Bettie Boswell in this order include: Draw Charge[i], Protime & INR, PSAPSA allowed more than once a year due to being a Diagonistic PSA not a screening PSA 15:50 ANTIGEN) (94163) PSA 8.05 ng/mL (Abnormal) Range: 0.00-4.00 15:50 PT (PROTHROMBIN TIME) Comments: A copy of this report will be faxed to: Bettie Boswell in this order include: Draw Charge[i], Protime & INR , PSAPSA allowed more than once a year due to being a Diagonistic PSA not a screening ([facility]) (04752) Evaes patient have a artifical heart valve? No [...] a Diagonistic PSA not a screening PSA (68754) Draw Drawn (Normal) 13-May-2012 Draw Charge[i] Comments: [...] results to dr. hema boswell 14:28 ANTIGEN) (45189) PSA 16.45 ng/mL (Abnormal) Range: 0.00-4.00 14:28 PT (PROTHROMBIN TIME) Comments: Coumadin Dosage=5,5,5,7.5 Repeat. Took 7.5 on 04-27-12. ([facility] (20426) 5. Dosage 7.5 Repeat mg (Normal) 4. Saturday Dosage 5.0 mg (Normal) 3. Saturday Dosage 5.0 mg (Normal) 2. Saturday Dosage 5.0 mg (Normal) 1. Saturday Dosage 7.5 mg (Normal) INR 2.17 (Normal) PT 22.7 s (Abnormal) Range: 10.4-12.4 14:28 Routine Venipuncture (73397) Draw Drawn (Normal) 13-May-2012 PSA (PROSTATE SPECIFIC Comments: A copy of this report will be faxed to: Bettie Boswell in this order include: PSA, Draw Charge[i]PSA allowed more than once a year due to being a Diagonistic PSA not a screening PSA 09:20 ANTIGEN) (96527) PSA 11.30 ng/mL (Abnormal) Range: 0.00-4.00 89-Uyjf-5650 TSH (THYROID Comments: Items in this order include: TSH 16:40 STIMULATING HORMONE) (85897) TSH 1.36 uIU/ml (Normal) Range: 0.34-5.60 14:50 PT (PROTHROMBIN TIME) Comments: Items in this order include: Draw Charge[i], Basic Metabolic Panel, Hemoglobin A1C, Protime & INRLast Hbg A1C was ran 218 Days ago. Check by DL ([facility]) (44885) 5. Dosage Repeat mg (Normal) 4. Saturday [...] ran 218 Days ago. Check (HGB A1C) (49979) by DLplease draw enough blood so if [...] ran 218 Days ago. Check by DL (31654) Draw Drawn (Normal) DIGOXIN, DRUG ASSAY Comments: Items in this order include: CBC, Comprehensive Metabolic Panel, CKI, Digoxin, Draw Charge[i] 09:08 (14128) DIG 0.38 ng/mL (Abnormal) Range: 0.90-2.00 09:08 CK Comments: Items in this order include: CBC, Comprehensive Metabolic Panel, CKI, Digoxin, Draw Charge[i] CKI 143 U/L (Normal) Range: 39-308 09:08 CMP (58216) Comments: Items in this order include: CBC, [...] Metabolic Panel, CKI, Digoxin, Draw Charge[i] ONE! (53861) manual diff Not Indicated (Normal) mpv 6.84 [...] order include: Protime & INR, Draw Charge[i] (54242) Draw Drawn (Normal) 16:45 PT (PROTHROMBIN TIME) Comments: Items in this order include: Protime & INR, Draw Charge[i]Coumadin doasage=5,5,7.5 Repeat ([facility]) (42456) 7. Saturday Dosage 5.0 mg (Normal) 6. [...] order include: Draw Charge[i], PSA 11:11 ANTIGEN) (40925) PSA 6.92 ng/mL (Abnormal) Range: 0.00-4.00 11:11 Routine Venipuncture Comments: A copy of this report will be faxed to: Bettie Boswell in this order include: Draw Charge[i], PSA (40090) Draw Drawn (Normal) 17-Oct-2011 Routine Venipuncture 10:18 (64100) Draw Drawn (Normal) 10:18 TESTOSTERONE, FREE, Comments: Items in this order include: Protime & INR, Draw Charge[i], TESTOSTERONE, FREE, BIOAVAILABLE, AND TOTAL, LC/MS/ MSTesting performed at: [facility] [place], [address] [place], [place], [address], [place] Installer: Michael Chávez [facility] TOTAL, LC/MS/MS ALBUMIN,SERUM [...] and benefits counseling. 10:18 PT (PROTHROMBIN TIME) ([facility]) (75293) 7. Saturday Dosage 5.0 mg (Normal) 6. [...] Panel, Hemoglobin A1C, Draw Charge[i] (HGB A1C) (14807) A1C 6.1 % (Normal) Range: 4.6-6.2 13:29 [...] (Normal) Range: 135-145 13:29 DIGOXIN, DRUG ASSAY (84942) DIG 0.85 ng/mL (Abnormal) Range: 0.90-2.00 07-Aug-2011 TESTOSTERONE, FREE, Comments: Items in this order include: TESTOSTERONE, FREE, BIOAVAILABLE, AND TOTAL, LC/MS/MSTesting performed at: [place], [address] [address], [place] , [address], [place] 12:53 WEAKLY BOUND AND TOTAL ratory Director: Michael Chávez MD.[facility] (76153) ALBUMIN,SERUM 4.4 g/dL (Normal) Range: 3.6-5.1 SEX [...] INR, Draw Charge[i]no change in coumadin dose ([facility]) (78604) 7. Saturday Dosage 7.5 mg (Normal) 6. [...] Metabolic Panel, Protime & INR, Draw Charge[i] ([facility]) (23732) 7. Saturday Dosage 5.0 mg (Normal) 5. [...] Boswell in this order include: PSA ANTIGEN) (24358) PSA 5.95 ng/mL (Abnormal) Range: 0.00-4.00 CBC-MALE- ORDER THIS Comments: Items in this order include : Hemoglobin A1C, Comprehensive Metabolic Panel, CBC 11:56 ONE! (61463) manual diff Not Indicated (Normal) mpv 7.65 [...] 6.24 10*3/uL (Normal) Range: 4.50-10.50 11:56 CMP (81731) Comments: Items in this order include: Hemoglobin [...] this order include: Digoxin, Draw Charge[i] 15:17 (85392) DIG 1.18 ng/mL (Normal) Range: 0.90-2.00 HEMOGLOBIN GLYCLATED Comments: Items in this order include: Hemoglobin A1C, Comprehensive Metabolic Panel, CBC 11:56 (HGB A1C) (09720) A1C 6.6 % (Abnormal) Range: 4.6-6.2 Comments: Consistent with diabetes. 13:48 PT (PROTHROMBIN TIME) Comments: change to coumadin 5mg x 2 day then 7.5mg x1 repeat the cycle; Items in this order include: Protime & INR, Draw Charge[i]cyclechange to coumadin 5mg x 2 day then 7.5mg x1 repeat the ([facility]) (44884) 6. Saturday Dosage 7.5 mg (Normal) 7. [...] & INR, PSA, Draw Charge[i] 09:43 ANTIGEN) (73760) PSA 5.84 ng/mL (Abnormal) Range: 0.00-4.00 09:43 PT (PROTHROMBIN TIME) Comments: no change in coumadin; no change in coumadin ([facility]) (60014) 7. Saturday Dosage 7.5 mg (Normal) 6. Saturday Dosage 5.0 mg (Normal) 5. Dosage 7.5 mg (Normal) 4. Saturday Dosage 5.0 mg (Normal) 3. Saturday Dosage 5.0 mg (Normal) 1. Saturday Dosage 5.0 mg (Normal) 2. Saturday Dosage 7.5 mg (Normal) INR 3.45 (Normal) PT 32.9 s (Abnormal) Range: 10.4-12.4 23-Nov-2010 PT (PROTHROMBIN TIME) 10:03 ([facility]) (02685) 6. Saturday Dosage 7.5 mg (Normal) 7. Saturday Dosage 5 mg (Normal) 1. Saturday Dosage 5 mg (Normal) 2. Saturday Dosage 7.5 mg (Normal) 3. Saturday Dosage 5 mg (Normal) 4. Saturday Dosage 7.5 mg (Normal) 5. Dosage 5 mg (Normal) INR 2.16 (Normal) PT 21.0 s (Abnormal) Range: 10.4-12.4 19-Oct-2010 PT (PROTHROMBIN TIME) 15:16 ([facility]) (88068) 6. Joao Dosage 5 mg (Normal) 7. Saturday Dosage 7.5 mg (Normal) 3. Saturday Dosage 7.5 mg (Normal) 4. Saturday Dosage 5 mg (Normal) 5. Dosage 7.5 mg (Normal) 1. Willie Dosage 7.5 mg (Normal) 2. Saturday Dosage 5 mg (Normal) INR 2.13 (Normal) PT 20.7 s (Abnormal) Range: 10.4-12.4 12-Sep-2010 PT (PROTHROMBIN TIME) 11:03 ([facility]) (11279) INR 2.57 (Normal) PT (PROTHROMBIN TIME) 24.8 s (Abnormal) Range: 11.5-13.5 22-Aug-2010 PT (PROTHROMBIN TIME) 13:41 ([facility]) (28362) 09-Aug-2010 PSA, MEDICARE (G0103) Comments: please fax to dr hema boswell 09:54 PSA (Medicare) 4.83 ng/mL (Abnormal) Range: 0 - 4 09:34 PT (PROTHROMBIN TIME) ([facility]) (54784) INR 2.68 (Normal) PT (PROTHROMBIN TIME) 25.8 s (Abnormal) Range: 11.5-13.5 27-Jun-2010 PT (PROTHROMBIN TIME) 08:38 ([facility]) (09951) 26-Jun-2010 PT (PROTHROMBIN TIME) 16:21 ([facility]) (60907) INR 1.89 (Normal) PT (PROTHROMBIN TIME) 18.4 s (Abnormal) Range: 11.5-13.5 Treatment Plan PT (PROTHROMBIN TIME) ([facility]) (17301); Ordered: 02/03/2015Routine Venipuncture ( 89153); Ordered: 02/03/2015 Advance Directives Encounters Lab entry only - Encounter for long-term (current) use of anticoagulants ( V58.61 | Z79.01) On 14-Jan-2015 [facility] 14:52 to 14:53 Lab entry only - Encounter for long-term (current) use of anticoagulants ( V58.61 | Z79.01), Encounter for long-term (current) use of anticoagulants ( V58.61 | Z79.01) On 29-Nov-2014 [facility] 12:31 to 15:09 Medication Entry - Diabetes mellitus (250.00 | E11.9) On 12-Nov-2014 [facility] 11:46 to 11:53 Medication Entry - Cellulitis, leg (682.6 | L03.119) On 11-Nov-2014 [facility] 09:48 to 10:00 Office Visit - [...] "Transition into care": He feels things are improved.[facility] Historical Summary On 27-Oct-2014 [facility] 15:03 to 15:08 Lab entry only - Fibrillation, atrial (427.31), Encounter for long-term ( current) use of anticoagulants (V58.61 | Z79.01) On 18-Oct-2014 [facility] 17:08 to 17:09 Medication Entry - Gout (274.9 | M10.9) On 12-Oct-2014 [facility] 16:17 to 16:22 Lab entry only - Encounter for long-term (current) use of anticoagulants ( V58.61 | Z79.01) On 21-Sep-2014 [facility] 15:31 to 15:33 Radiology Visit - Carotid stenosis (433.10 | I65.29) On 14-Sep-2014 [facility] 09:33 to 09:36 Lab entry only - Encounter for long-term (current) use of anticoagulants ( V58.61 | Z79.01) On 24-Aug-2014 [facility] 16:31 to 16:34 Office Visit - Health education (V65.40 | Z71.9), Prevnar (PCV13)FOR MEDICARE USE ONLY Pneumovax injection (V03.82) 54552, Encounter for long-term ( current) use of [...] lifeline screening. He mentions the "discoloration" of ankles.[facility] Historical Summary On 11-Aug-2014 [facility] [facility] to 16:19 Lab entry only - Fibrillation, atrial (427.31), Encounter for long-term ( current) use of anticoagulants (V58.61 | Z79.01) On 06-Aug-2014 [facility] 16:41 to 16:43 Medication Entry - Benign essential hypertension (401.1 | I10) On 21-Jun-2014 [facility] 11:12 to 11:14 Lab entry only - Encounter for long-term (current) use of anticoagulants ( V58.61 | Z79.01) On 03-Jun-2014 [facility] 16:13 to 16:15 Lab entry only - Encounter for long-term (current) use of anticoagulants ( V58.61 | Z79.01) On [facility] 13:22 to 13:23 Lab entry only - Elevated PSA (790.93), Encounter for long-term (current) use of anticoagulants (V58.61 | Z79.01) On [facility] 14:27 to 14:28 Office Visit - [...] thing in the morning and on stairs. [facility] Historical Summary On 28-Dec-2013 [facility] 12:26 to 12:29 Medication Entry - Encounter for long-term (current) use of anticoagulants ( V58.61 | Z79.01), Diabetes mellitus (250.00 | E11.9), Fibrillation, atrial ( 427.31) On 03-Nov-2013 [facility] 09:01 to 11:53 Medication Entry - Fibrillation, atrial (427.31), Diabetes mellitus (250.00 | E11.9) On 30-Oct-2013 [facility] 15:55 to 16:00 Lab entry only - Encounter for long-term (current) use of anticoagulants ( V58.61 | Z79.01) On 27-Oct-2013 [facility] 17:57 to 17:59 Office Visit - [...] M.D. after being in the hospital at [facility] on 10/16/13 & discharged on 10/17/13 dx jasmeet diaz, inr was done prior to visit.) . Note for "Transition into care": He passed a kidney stone a week ago.[facility] Historical Summary On 23-Oct-2013 [facility] 14:42 to 14:45 Lab entry only - Encounter for long-term (current) use of anticoagulants ( V58.61 | Z79.01) On 20-Oct-2013 [facility] 16:31 to 16:33 Lab entry only - Encounter for long-term (current) use of anticoagulants ( V58.61 | Z79.01) On 16-Sep-2013 [facility] 10:14 to 10:15 Lab entry only - Elevated PSA (790.93) On 15-Sep-2013 [facility] 11:11 to 11:12 Lab entry only - Encounter for long-term (current) use of anticoagulants ( V58.61 | Z79.01) On 07-Aug-2013 [facility] 14:32 to 14:33 Lab entry only - Benign essential hypertension (401.1 | I10), Diabetes mellitus (250.00 | E11.9) On 07-Aug-2013 [facility] 11:18 to 11:19 Lab entry only - Encounter for long-term (current) use of anticoagulants ( V58.61 | Z79.01) On 01-May-2013 [facility] 10:33 to 10:38 Office Visit - [...] He did miss some meds while he traveled.[facility] Historical Summary On 29-Apr-2013 [facility] 11:46 to 11:49 Lab entry only - Encounter for long-term (current) use of anticoagulants ( V58.61 | Z79.01) On [facility] 16:39 to 16:42 Lab entry only - Encounter for long-term (current) use of anticoagulants ( V58.61 | Z79.01) On [facility] 19:40 to 19:42 Lab entry only - Elevated PSA (790.93) On [facility] 12:03 to 12:07 Office Visit - [...] for "Cough": He has not had an antibiotic.[facility] Lab entry only - Encounter for long-term (current) use of anticoagulants ( V58.61 | Z79.01) On 16-Dec-2012 [facility] 18:21 to 18:23 Lab entry only - Encounter for long-term (current) use of anticoagulants ( V58.61 | Z79.01) On 27-Nov-2012 [facility] 16:52 to 16:53 Lab entry only - Encounter for long-term (current) use of anticoagulants ( V58.61) On 26-Nov-2012 [facility] 15:04 to 15:05 Office Visit - [...] first thing in the morning and on stairs.[facility] Historical Summary On 29-Oct-2012 [facility] 16:15 to 16:17 Lab entry only - Encounter for long-term (current) use of anticoagulants ( V58.61) On 15-Oct-2012 [facility] 09:51 to 09:57 Lab entry only - Encounter for long-term (current) use of anticoagulants ( V58.61), Elevated PSA (790.93) On 14-Oct-2012 [facility] 10:25 to 10:26 Lab entry only - Encounter for long-term (current) use of anticoagulants ( V58.61) On 12-Sep-2012 [facility] 13:44 to 13:45 Medication Entry - Edema (782.3), Fibrillation, atrial (427.31) On 20-Aug-2012 [facility] 11:10 to 11:12 Medication Entry - Fibrillation, atrial (427.31), Edema (782.3) On 19-Aug-2012 [facility] 17:29 to 18:11 Medication Entry - Encounter for long-term (current) use of anticoagulants ( V58.61), Fibrillation, atrial (427.31), Diabetes mellitus (250.00) On 2011 [facility] 17:44 to 17:53 Office Visit - 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), Inflamed seborrheic keratosis (702.11), Hyperglycemia (790.29), Encounter for long-term (current) use of anticoagulants (V58.61), Fibrillation, atrial (427.31) On 01-Aug-2012 Encounter Reason: Follow up for chronic condition - The patient feels well with minor complaints (here today for a 3 month follow up with Dr. Romero ) .[facility] 09:34 to 10:39 Medication Entry - Encounter for long-term (current) use of anticoagulants ( V58.61) On 31-Jul-2012 [facility] 18:21 to 18:22 Historical Summary On 31-Jul-2012 [facility] 11:40 to 11:42 Lab entry only - Encounter for long-term (current) use of anticoagulants ( V58.61) On 23-Jun-2012 [facility] 18:47 to 18:52 Lab entry only - Elevated PSA (790.93), Encounter for long-term (current) use of anticoagulants (V58.61) On 23-Jun-2012 [facility] 15:48 to 15:53 Office Visit - Adjustment disorder with depressed mood (309.0), Encounter for long-term (current) use of anticoagulants (V58.61), Elevated PSA (790.93) On Encounter Reason: Follow up for chronic condition - The patient feels well with minor complaints (here for a 6 week follow up visit do to a new medication but did not start the medication).[facility] 11:19 to 13: 39 Historical Summary On 30-Apr-2012 [facility] 11:50 to 11:52 Lab entry only - Encounter for long-term (current) use of anticoagulants ( V58.61) On 28-Apr-2012 [facility] 17:23 to 17:26 Lab entry only - Elevated PSA (790.93), Encounter for long-term (current) use of anticoagulants (V58.61) On 28-Apr-2012 [facility] 14:19 to 14:22 Office Visit - [...] , had lab done prior to appt today).[facility] Lab entry only - Edema (782.3), Hyperglycemia (790.29), Encounter for long- term (current) use of anticoagulants (V58.61) On [facility] 11:06 to 11:14 Lab entry only - Elevated PSA (790.93), Fibrillation, atrial (427.31), Edema ( 782.3) On [facility] 09:02 to 09:05 Lab entry only - Encounter for long-term (current) use of anticoagulants ( V58.61) On [facility] 16:44 to 16:45 Medication Entry On 26-Oct-2011 [facility] 13:30 to 13:32 Lab entry only - Elevated PSA (790.93) On 23-Oct-2011 [facility] 11:01 to 11:04 Lab entry only - Encounter for long-term (current) use of anticoagulants ( V58.61), Low testosterone (257.2) On 17-Oct-2011 [facility] 10:15 to 10:17 Medication Entry - Fibrillation, atrial (427.31) On 04-Oct-2011 [facility] 09:26 to 09:38 Medication Entry - Fibrillation, atrial (427.31), Edema (782.3), Encounter for long-term (current) use of anticoagulants (V58.61), Benign prostatic hypertrophy without lower urinary tract symptoms (LUTS) (600.00) On 02-Oct-2011 [facility] 18:56 to 19:02 Medication Entry - Encounter for long-term (current) use of anticoagulants ( V58.61), Fibrillation, atrial (427.31), Edema (782.3) On 26-Sep-2011 [facility] 11:06 to 11:11 Medication Entry - Fibrillation, atrial (427.31), Encounter for long-term ( current) use of anticoagulants (V58.61) On 24-Sep-2011 [facility] 10:41 to 10:49 Lab entry only - Low testosterone (257.2) On 10-Aug-2011 [facility] 13:03 to 13:05 Lab entry only - Hyperglycemia (790.29), Encounter for long-term (current) use of anticoagulants (V58.61), Fibrillation, atrial (427.31) On 08-Aug-2011 [facility] 13:27 to 13:29 Office Visit - [...] he 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." [facility] Historical Summary On 06-Aug-2011 [facility] 12:22 to 12:24 Medication Entry - Fibrillation, atrial (427.31) On 05-Jun-2011 [facility] 08:54 to 08:59 Lab entry only - Encounter for long-term (current) use of anticoagulants ( V58.61) On 15-May-2011 [facility] 18:48 to 18:50 Office Visit - [...] up is diabetes, hypertension, cardiovascular disorder and other.[facility] Medication Entry - Benign prostatic hypertrophy without lower urinary tract symptoms (LUTS) (600.00) On 19-Apr-2011 [facility] 08:49 to 08:51 Lab entry only - Benign prostatic hypertrophy without lower urinary tract symptoms (LUTS) (600.00) On 10-Apr-2011 [facility] 15:15 to 15:19 Office Visit - [...] seeing dr. boswell the middle of apr.). [facility] Historical Summary On [facility] 16:05 to 16:18 Lab entry only - Encounter for long-term (current) use of anticoagulants ( V58.61) On [facility] 17:34 to 17:36 Lab entry only - Encounter for long-term (current) use of anticoagulants ( V58.61), Elevated PSA (790.93) On [facility] 09:42 to 09:43 Lab entry only - Encounter for long-term (current) use of anticoagulants ( V58.61) On 24-Nov-2010 [facility] 08:55 to 08:57 Lab entry only - Encounter for long-term (current) use of anticoagulants ( V58.61) On 20-Oct-2010 [facility] 14:42 to 14:46 Historical Summary - Encounter for long-term (current) use of anticoagulants ( V58.61) On 13-Sep-2010 [facility] 10:53 to 10:59 Historical Summary 12-Sep-2010 to 13-Sep-2010 [facility] Lab entry only - Encounter for long-term (current) use of anticoagulants ( V58.61) On 14-Aug-2010 [facility] 17:44 to 17:49 Historical Summary - Elevated PSA (790.93) 09-Aug-2010 to 15-Aug-2010 [facility] Lab entry only - Encounter for long-term (current) use of anticoagulants ( V58.61) 27-Jun-2010 to 28-Jun-2010 [facility] Lab entry only - Encounter for long-term (current) use of anticoagulants ( V58.61) On 26-Jun-2010 [facility] 16:21 to 22:23 Insurance Vijay Yuan; gwen guarantorMedicare [employer] [facility] [employer]
--- OUTSIDE RECORDS SUMMARY | 2017-10-22 17:52 | External Medical Summary | Referral Summary ---
:1940 Author Organization [facility] [address] [place] [address] [place] [id number] Care Team Providers Name Role Phone Blayne Blake Primary Care Physician Encounter VC Date(s): 09/24/16 - 09/24/16 [facility] [place] [phone] [place] Discharge Disposition: 01-Home or Self Care Attending Physician: Blayne Blake DO Admitting Physician: lBayne Blake DO Vital Signs No data available for this section Problem List No data available for this section Allergies, Adverse Reactions, Alerts Substance Reaction Severity Status penicillin Active Medications allopurinol 300 mg oral tablet 150 mg 0.5 tabs, Oral, Daily, # 45 Each, 1 Refill(s), Pharmacy: [id number], 0.5 tabs Oral Daily Start Date: 09/19/16 Status: OrderedCartia XT 240 mg/24 hours oral capsule, extended release 240 mg 1 caps, Oral, Daily, 0 Refill(s) Start Date: 01/04/16 Status: OrderedCipro 500 mg oral tablet 500 mg 1 tabs, Oral, q12hr, X 7 days, 0 Refill(s) Start Date: 09/24/16 Stop Date: 09/30/16 Status: Ordereddigoxin 250 mcg (0.25 mg) oral [...] day), 0 Refill(s) Start Date: 01/04/16 Status: Orderedwarfarin 5 mg oral tablet 5 mg 1 tabs, Oral, Daily, # 30 tabs, 3 Refill(s), Pharmacy: [id number], 1 tabs Oral Daily Start Date: 09/24/16 Status: OrderedXarelto 20 mg oral tablet 20 mg 1 tabs, Oral, qPM, # 90 tabs, 3 Refill(s), Pharmacy: [facility], 1 tabs Oral qPM Start Date: 09/18/16 Status: Ordered Results No data available for this section Immunizations Given and Recorded Vaccine Date Status Refusal Reason influenza virus vaccine, inactivated 09/18/16 Given zoster vaccine live 03/08/16 Given Procedures Procedure Date Related Diagnosis Body Site Colonoscopy1 10/06/14 1Normal study. Repeat in 10 yrs Social History Social History Type Response Smoking Status Never smoker Assessment and Plan No data available for this section
--- OUTSIDE RECORDS SUMMARY | 2017-10-22 17:53 | External Medical Summary | Continuity of Care Document ---
:1940 Author Organization [facility] Address [address] [place] [address] Phone Care Team Providers Name Role Phone [...] Comments:started on 10/17/13 after being dismissed from [facility] for kidney stone by gale CITALOPRAM [...] dx kidney stone from being discharged from [facility] PROMETHAZINE-DM, 6.25-15MG/5ML (Oral Syrup) 1-2 tsp [...] BL DRAW < 3 YRS Ordered:28-Oct-2015 FEM/JUGULAR ([id number]) Follow up in 6 months Ordered:27-Oct-2015 How to access health information Completed:27-Jul-2015 online Skin Conditions Completed:27-Jul-2015 Follow up in 2 weeks Ordered:27-Jul-2015 HIGH DOSE QUADRIVALENT INFLUENZA Ordered:25-Jul-2015 VACCINE ([id number]) ADMINISTRATION OF INFLUENZA VIRUS Ordered:25-Jul-2015 VACCINE (G0008) Follow up in 3 months Ordered:25-Jul-2015 Follow up in 4 months Ordered: X-RAY EXAM OF KNEE, 1 OR 2 VIEWS Completed: Comments: right (96803) X-RAY EXAM OF BOTH KNEES, Completed: STANDING (08228) How to access health information Completed: online Follow up - Keep appt as scheduled Ordered:28-Oct-2014 CAROTID BILATERAL US ([id number]) Completed:14-Sep-2014 Comments: Verbal order from Dr. James Romero Follow up in 6 months Ordered:12-Aug-2014 PREVNAR 13 VALENT PNEUMOCOCCAL Completed:12-Aug-2014 VACCINE (60063) ADMINISTRATION OF PNEUMOCOCCAL Ordered:12-Aug-2014 CONJUGATE VACCINE (G0009) How to access health information Completed:12-Aug-2014 online Follow up in 6 months Ordered: Follow up in 2 months Ordered:26-Oct-2013 ADMIN INFLUENZA VIRUS VAC: FLU VACC Completed:26-Oct-2013 PRSV FREE INC ANTIG ([id number]) ADMINISTRATION OF INFLUENZA VIRUS Ordered:26-Oct-2013 VACCINE (G0008) Follow up in 6 months Ordered:30-Apr-2013 Follow up - Keep appt as scheduled Ordered:02-Jan-2013 Follow up in 6 months Ordered:30-Oct-2012 Follow up in 3 months Ordered:01-Aug-2012 Follow up in 3 months Ordered:01-May-2012 Follow up in 6 weeks Ordered: ADMINISTRATION OF INFLUENZA VIRUS Ordered:14-May-2011 VACCINE (G0008) FLU VACC PRSV FREE INC ANTIG Completed:14-May-2011 (12424) Follow up in 2 months Ordered:14-May-2011 Follow up in 2 months Ordered: Annual Eye Exam Completed:22-Nov-2008 Colonoscopy, Screening Completed: Colonoscopy, Screening Completed:06-Oct-2014 Flu Vaccine Completed:26-Oct-2013 Flu Vaccine Completed:06-Jun-2012 Comments: [facility] Flu Vaccine Completed:14-May-2011 Comments: high dose Flu [...] Site: Deltoid (Left); high dose Lot #: [id number] Influenza, preserv. free, enhanced immunogncty, IM Administered on:2013 Comments: Site: Deltoid (Left) Lot #: [id number] Pneumococcal conjugate vaccine, 13 valent, IM Administered on:12-Aug-2014 Comments: Site: Deltoid (Left) Lot #: [id number] Social History Name Dates Details Tobacco use: [...] Comments: The left neck Final 10:36 SINGLE (57198) lesion was removed and also the left [...] not sent to pathology. 10:35 PUNCH BIOPSY (65493) Comments: After Final FIRST BIOPSY cleansing the [...] ([facility]) (74057) 9. day Dosage Repeat mg (Normal) 8. [...] Charge[i], Protime & INR, PSA 16:21 ANTIGEN) (29728) PSA 6.00 ng/mL (Abnormal) Range: 0.00-4.00 16:21 PT (PROTHROMBIN TIME) Comments: Does patient have a artifical heart valve? No ([facility]) (84018) 8. Saturday Dosage 5.0 mg (Normal) 9. Saturday Dosage 7.5 mg (Normal) 6. Saturday Dosage 7.5 mg (Normal) 7. Dosage 7.5 mg (Normal) 5. Saturday Dosage 5.0 mg (Normal) 4. Saturday Dosage 7.5 mg (Normal) 3. Saturday Dosage 7.5 mg (Normal) INR 2.21 (Normal) PT 24.2 s (Abnormal) Range: 9.3-11.7 16:21 Routine Venipuncture (70831) Draw Drawn (Normal) 25-Oct-2015 URIC ACID BLOOD (47382) Comments: Items in this order include : CBC, Comprehensive Metabolic Panel, CKI, Hemoglobin A1C, Uric Acid, Draw Charge[i] 11:21 Uric Acid 5.5 mg/dL (Normal) Range: 3.5-7.2 11:21 HEMOGLOBIN GLYCLATED (HGB A1C) (96885) A1C 6.2 % (Normal) Range: 4.6-6.2 Comments: High risk of diabetes. 11:21 CK (96575) Comments: Items in this order include: CBC, Comprehensive Metabolic Panel, CKI, Hemoglobin A1C, Uric Acid, Draw Charge[i] CKI 288 U/L (Normal) Range: 39-308 11:21 CMP (88875) Comments: Items in this order include: CBC, [...] 135-145 11:21 CBC MALE- ORDER THIS ONE! (63343) manual diff Not Indicated (Normal) mpv 9.80 [...] a artifical heart valve? No 15:06 ([facility]) (69090) 9. Saturday Dosage 7.5 mg (Normal) 8. [...] order include: Draw Charge[i], Protime & INR (63040) Draw Drawn (Normal) [facility] (38728) Comments: Items in this order include: Basic [...] include: A COPY TO [kyung], PSA ANTIGEN) (18238) PSA 6.55 ng/mL (Abnormal) Range: 0.00-4.00 09:25 [...] ([facility]) (57022) 8. Saturday Dosage 7.5 mg (Normal) 9. [...] order include: Draw Charge[i], Protime & INR (33562) Draw Drawn (Normal) 14-Jan-2015 PT (PROTHROMBIN TIME) Comments: Items in this order include: Draw Charge[i], Protime & INRDoes patient have a artifical heart valve? No 09:28 ([facility]) (41701) 9. Saturday Dosage 5.0 mg (Normal) 7. [...] order include: Draw Charge[i], Protime & INR (27273) Draw Drawn (Normal) 28-Oct-2014 PT (PROTHROMBIN TIME) Comments: Items in this order include: Draw Charge[i], Protime & INRDoes patient have a artifical heart valve? No 10:48 ([facility]) (40790) 9. Saturday Dosage 7.5 mg (Normal) 8. [...] order include: Draw Charge[i], Protime & INR (85702) Draw Drawn (Normal) 29-Nov-2014 PT (PROTHROMBIN TIME) Comments: Items in this order include: Draw Charge[i], Protime & INRDoes patient have a artifical heart valve? No 10:28 ([facility]) (36181) 9. Saturday Dosage 5.0 mg (Normal) 8. [...] order include: Draw Charge[i], Protime & INR (48317) Draw Drawn (Normal) 21-Sep-2014 PT (PROTHROMBIN TIME) Comments: Items in this order include: Draw Charge[i], Protime & INRLily patient have a artifical heart valve? No 10:08 ([facility]) (27162) 9. Saturday Dosage 5.0 mg (Normal) 7. [...] order include: Draw Charge[i], Protime & INR (46645) Draw Drawn (Normal) 24-Aug-2014 Routine Venipuncture Comments: Items in this order include: Protime & INR, Draw Charge[i] 09:59 (36343) Draw Drawn (Normal) 09:59 PT (PROTHROMBIN TIME) Comments: Items in this order include: Protime & INR, Draw Charge[i]INR value > 3.0 given to Estella by Beny Buckley patient have a artifical heart valve? No ([facility]) (55428) 9. Saturday Dosage 7.5 mg (Normal) 7. [...] Panel, Hemoglobin A1C, Urine Microalbumin, CBC ONE! (57866) manual diff Not Indicated (Normal) mpv 9.60 [...] Metabolic Panel, Hemoglobin A1C, Urine Microalbumin, CBC (80335) U A:C RATIO <30 mg/g Normal Range: <30 mg/g Normal (Normal) U CREAT 200 mg/dL (Normal) Range: 10-300 U ALB 80 mg/L (Abnormal) Range: 10 mg/L 09:59 HEMOGLOBIN GLYCLATED Comments: Items in this order include: Digoxin , PSA, Basic Metabolic Panel, Hemoglobin A1C, Urine Microalbumin, CBC (HGB A1C) (31452) A1C 5.9 % (Normal) Range: 4.6-6.2 Comments: Increased risk of diabetes. 09:59 [facility] (71843) Comments: Items in this order include: Digoxin, [...] Panel, Hemoglobin A1C, Urine Microalbumin, CBC ANTIGEN) (52897) PSA 7.11 ng/mL (Abnormal) Range: 0.00-4.00 09:59 DIGOXIN (74943) Comments: Items in this order include: Digoxin, PSA , Basic Metabolic Panel, Hemoglobin A1C, Urine Microalbumin, CBCTime of Last Dose? 08/23/2014 8:00 AMDosage? 0.25 DIG 0.36 ng/mL (Abnormal) Range: 0.90-2.00 05-Aug-2014 PT (PROTHROMBIN TIME) Comments: Items in this order include: Draw Charge[i], Protime & INRDoes patient have a artifical heart valve? No 10:48 ([facility]) (38203) 8. Joao Dosage 7.5 mg (Normal) 9. [...] order include: Draw Charge[i], Protime & INR (73205) Draw Drawn (Normal) 03-Jun-2014 PT (PROTHROMBIN TIME) Comments: Items in this order include: Draw Charge[i], Protime & INRDoes patient have a artifical heart valve? No 13:56 ([facility]) (22522) 9. Saturday Dosage 7.5 mg (Normal) 8. [...] order include: Draw Charge[i], Protime & INR (77957) Draw Drawn (Normal) PT (PROTHROMBIN TIME) Comments: Items in this order include: Protime & INRDoes patient have a artifical heart valve? No 14:25 ([facility]) (89199) 9. day Dosage 5.0 mg (Normal) 8. [...] this order include: Draw Charge[i], PSA ANTIGEN) (60345) PSA 6.15 ng/mL (Abnormal) Range: 0.00-4.00 14:25 Routine Venipuncture Comments: A copy of this report will be faxed to: Bettie Boswell in this order include: Draw Charge[i], PSA (75269) Draw Drawn (Normal) HEMOGLOBIN GLYCLATED Comments: Items in this order include: Hemoglobin A1C, Draw Charge[i], Comprehensive Metabolic Panel, Uric Acid 15:06 (HGB A1C) (08852) A1C 5.7 % (Normal) Range: 4.6-6.2 15:06 CMP (37868) Comments: Items in this order include: Hemoglobin [...] (Normal) Range: 135-145 15:06 URIC ACID BLOOD (30179) Comments: Items in this order include: Hemoglobin A1C, Draw Charge[i], Comprehensive Metabolic Panel, Uric Acid Uric Acid 8.0 mg/dL (Abnormal) Range: 3.6-7.7 15:06 Routine Venipuncture Comments: Items in this order include: Hemoglobin A1C, Draw Charge[i], Comprehensive Metabolic Panel, Uric Acid (21835) Draw Drawn (Normal) PT (PROTHROMBIN TIME) Comments: Items in this order include: Draw Charge[i], Protime & INRDoes patient have a artifical heart valve? No 14:27 ([facility]) (88618) 8. Saturday Dosage 5.0 mg (Normal) 9. [...] order include: Draw Charge[i], Protime & INR (70564) Draw Drawn (Normal) 26-Oct-2013 Draw Charge[i] Comments: Items in this order include: Basic Metabolic Panel, Draw Charge[i] 17:08 Draw Drawn (Normal) 17:05 [facility] (08957) Comments: Items in this order include: Basic [...] ([facility]) (89027) 9. Saturday Dosage 5.0 mg (Normal) 7. [...] order include: Draw Charge[i], Protime & INR (34382) Draw Drawn (Normal) 15-Sep-2013 PSA (PROSTATE SPECIFIC Comments: A copy of this report will be faxed to: Bettie Boswell in this order include: A COPY TO [kyung] PSAPSA allowed more than once a year due to being a Diagonistic PSA not a screening PSA 11:05 ANTIGEN) (71594) PSA 5.40 ng/mL (Abnormal) Range: 0.00-4.00 11:05 [...] this order include: Comprehensive Metabolic Panel, Hemoglobin [id number] Hgb A1C was ran 99 Days ago. Check by MARGARITA 10:38 (HGB A1C) (78463) A1C 5.9 % (Normal) Range: 4.6-6.2 Comments: Increased risk of diabetes. 10:38 [facility] (99484) Comments: Items in this order include: Comprehensive Metabolic Panel, Hemoglobin [id number] Hgb A1C was ran 99 Days ago. [...] ([facility]) (56333) 9. Saturday Dosage 5.0 (cycle of 5,5,7.5 [...] order include: Draw Charge[i], Protime & INR (16613) Draw Drawn (Normal) 10:38 DIGOXIN (01139) Comments: Items in this order include: DigoxinTime of Last Dose? 08/06/2013 8:30 AMDosage? 0.25 mg daily DIG 0.48 ng/mL (Abnormal) Range: 0.90-2.00 30-Apr-2013 HEMOGLOBIN GLYCLATED Comments: Items in this order include: Comprehensive Metabolic Panel, CBC, Hemoglobin [id number] Hgb A1C was ran 225 Days ago. Check by ms 11:58 (HGB A1C) (08256) A1C 6.1 % (Normal) Range: 4.6-6.2 11:58 CBC MALE- ORDER THIS Comments: Items in this order include: Comprehensive Metabolic Panel, CBC, Hemoglobin [id number] Hgb A1C was ran 225 Days ago. Check by ms ONE! (47126) manual diff Not Indicated (Normal) mpv 4.88 [...] 6.15 10*3/uL (Normal) Range: 4.50-10.50 11:58 CMP (90234) Comments: Items in this order include: Comprehensive Metabolic Panel, CBC, Hemoglobin [id number] Hgb A1C was ran 225 Days ago. [...] ([facility]) (30994) 4. Saturday Dosage Repeat mg (Normal) 3. Saturday Dosage 7.5 mg (Normal) 2. Saturday Dosage 5.0 mg (Normal) 1. Saturday Dosage 5.0 mg (Normal) INR 2.60 (Normal) PT 26.8 s (Abnormal) Range: 10.4-12.4 -March-2013 PT (PROTHROMBIN TIME) Comments: Items in this order include: Draw Charge[i], Protime & INRDoes patient have a artifical heart valve? No 15:12 ([facility]) (92889) 5. Dosage Repeat mg (Normal) 4. Saturday Dosage 5.0 mg (Normal) 3. Saturday Dosage 5.0 mg (Normal) 2. Saturday Dosage 7.5 mg (Normal) INR 2.31 (Normal) PT 24.0 s (Abnormal) Range: 10.4-12.4 15:12 Routine Venipuncture Comments: Items in this order include: Draw Charge[i], Protime & INR (63606) Draw Drawn (Normal) PSA (PROSTATE SPECIFIC Comments: A copy of this report will be faxed to: Bettie Boswell in this order include: PSA, Draw Charge[i]PSA allowed more than once a year due to being a Diagonistic PSA not a screening PSA 10:00 ANTIGEN) (36338) PSA 5.60 ng/mL (Abnormal) Range: 0.00-4.00 10:00 [...] ([facility]) (86608) 3. Saturday Dosage Repeat mg (Normal) 2. Saturday Dosage 7.5 mg (Normal) 1. Saturday Dosage 5.0 mg (Normal) INR 2.64 (Normal) PT 27.2 s (Abnormal) Range: 10.4-12.4 10:09 Routine Venipuncture Comments: Items in this order include: Draw Charge[i], Protime & INR (29047) Draw Drawn (Normal) 16-Dec-2012 PT (PROTHROMBIN TIME) Comments: Items in this order include: Draw Charge[i], Protime & INRDoes patient have a artifical heart valve? No 10:46 (APS) (43925) 4. Saturday Dosage Repeat mg (Normal) 3. Saturday Dosage 5.0 mg (Normal) 2. Saturday Dosage 7.5 mg (Normal) INR 2.13 (Normal) PT 22.2 s (Abnormal) Range: 10.4-12.4 10:46 Routine Venipuncture Comments: Items in this order include: Draw Charge[i], Protime & INR (42619) Draw Drawn (Normal) 26-Nov-2012 Routine Venipuncture Comments: Items in this order include: Protime & INR, Draw Charge[i] 15:05 (64282) Draw Drawn (Normal) 15:05 PT (PROTHROMBIN TIME) Comments: Items in this order include: Protime & INR, Draw Charge[i]Does patient have a artifical heart valve? No ([facility]) (13314) 4. Saturday Dosage 5.0 Repeat mg (Normal) [...] ([facility]) (72704) 7. Saturday Dosage 7.5 mg (Normal) 6. [...] order include: Draw Charge[i], Protime & INR (04588) Draw Drawn (Normal) 11:33 BMP Comments: Items [...] Dose? 10/29/2012 8:00 PMDosage? 0.25 mg Daily (71817) DIG 1.64 ng/mL (Normal) Range: 0.90-2.00 14-Oct-2012 PSA (PROSTATE SPECIFIC Comments: A copy of this report will be faxed to: Bettie Boswell in this order include: Draw Charge[i], Protime & INR, PSAPSA allowed more than once a year due to being a Diagonistic PSA not a screening PSA 10:25 ANTIGEN) (72084) PSA 8.11 ng/mL (Abnormal) Range: 0.00-4.00 10:25 PT (PROTHROMBIN TIME) Comments: PSA allowed more than once a year due to being a Diagonistic PSA not a screening PSACoumadin dosage=5,5,5,5,7.5 repeatDoes patient have a artifical heart valve? No ([facility]) (54750) 7. Saturday Dosage 7.5 mg (Normal) 6. [...] a Diagonistic PSA not a screening PSA (54653) Draw Drawn (Normal) 12-Sep-2012 PT (PROTHROMBIN TIME) Comments: Items in this order include: Draw Charge[i], Protime & INRDoes patient have a artifical heart valve? No 09:16 ([facility]) (91436) 6. Saturday Dosage Repeat mg (Normal) 5. Dosage 7.5 mg (Normal) 4. Saturday Dosage 5.0 mg (Normal) 3. Saturday Dosage 5.0 mg (Normal) 2. Saturday Dosage 5.0 mg (Normal) 1. Saturday Dosage 5.0 mg (Normal) INR 2.48 (Normal) PT 25.7 s (Abnormal) Range: 10.4-12.4 09:16 Routine Venipuncture Comments: Items in this order include: Draw Charge[i], Protime & INR (94292) Draw Drawn (Normal) 18-Aug-2012 PT (PROTHROMBIN TIME) Comments: Items in this order include: Protime & INRDolynn patient have a artifical heart valve? No 11:44 ([facility]) (46951) 7. Saturday Dosage 5.0 mg (Normal) 6. [...] Days ago. Check by KB (HGB A1C) (22744) A1C 6.2 % (Normal) Range: 4.6-6.2 Comments: High risk of diabetes. 31-Jul-2012 PT (PROTHROMBIN TIME) Comments: Items in this order include: Draw Charge[i], Protime & INRINR value > 3.0 given to Estella by Beny Buckley patient have a artifical heart valve? No 13:32 ([facility]) (32579) 7. day Dosage 5.0 mg (Normal) 6. [...] order include: Draw Charge[i], Protime & INR (92784) Draw Drawn (Normal) 23-Jun-2012 PSA (PROSTATE SPECIFIC Comments: A copy of this report will be faxed to: Bettie Boswell in this order include: Draw Charge[i], Protime & INR, PSAPSA allowed more than once a year due to being a Diagonistic PSA not a screening PSA 15:50 ANTIGEN) (18067) PSA 8.05 ng/mL (Abnormal) Range: 0.00-4.00 15:50 PT (PROTHROMBIN TIME) Comments: A copy of this report will be faxed to: Bettie Boswell in this order include: Draw Charge[i], Protime & INR , PSAPSA allowed more than once a year due to being a Diagonistic PSA not a screening ([facility]) (87154) PSADoes patient have a artifical heart valve? [...] a Diagonistic PSA not a screening PSA (26979) Draw Drawn (Normal) 13-May-2012 Draw Charge[i] Comments: [...] results to dr. hema boswell 14:28 ANTIGEN) (43075) PSA 16.45 ng/mL (Abnormal) Range: 0.00-4.00 14:28 PT (PROTHROMBIN TIME) Comments: Coumadin Dosage=5,5,5,7.5 Repeat. Took 7.5 on 04-27-12. ([facility]) (60522) 5. Dosage 7.5 Repeat mg (Normal) 4. Saturday Dosage 5.0 mg (Normal) 3. Saturday Dosage 5.0 mg (Normal) 2. Saturday Dosage 5.0 mg (Normal) 1. Saturday Dosage 7.5 mg (Normal) INR 2.17 (Normal) PT 22.7 s (Abnormal) Range: 10.4-12.4 14:28 Routine Venipuncture (99095) Draw Drawn (Normal) 13-May-2012 PSA (PROSTATE SPECIFIC Comments: A copy of this report will be faxed to: Bettie Boswell in this order include: PSA, Draw Charge[i]PSA allowed more than once a year due to being a Diagonistic PSA not a screening PSA 09:20 ANTIGEN) (51417) PSA 11.30 ng/mL (Abnormal) Range: 0.00-4.00 TSH (THYROID Comments: Items in this order include: TSH 16:40 STIMULATING HORMONE) (41419) TSH 1.36 uIU/ml (Normal) Range: 0.34-5.60 14:50 PT (PROTHROMBIN TIME) Comments: Items in this order include: Draw Charge[i], Basic Metabolic Panel, Hemoglobin A1C, Protime & INRLast Hbg A1C was ran 218 Days ago. Check by DL ([facility]) (06412) 5. Dosage Repeat mg (Normal) 4. Saturday [...] ran 218 Days ago. Check (HGB A1C) (41931) by DLplease draw enough blood so if [...] ran 218 Days ago. Check by DL (74142) Draw Drawn (Normal) DIGOXIN, DRUG ASSAY Comments: Items in this order include: CBC, Comprehensive Metabolic Panel, CKI, Digoxin, Draw Charge[i] 09:08 (44933) DIG 0.38 ng/mL (Abnormal) Range: 0.90-2.00 09:08 CK Comments: Items in this order include: CBC, Comprehensive Metabolic Panel, CKI, Digoxin, Draw Charge[i] CKI 143 U/L (Normal) Range: 39-308 09:08 CMP (65800) Comments: Items in this order include: CBC, [...] Metabolic Panel, CKI, Digoxin, Draw Charge[i] ONE! (05574) manual diff Not Indicated (Normal) mpv 6.84 [...] order include: Protime & INR, Draw Charge[i] (33948) Draw Drawn (Normal) 16:45 PT (PROTHROMBIN TIME) Comments: Items in this order include: Protime & INR, Draw Charge[i]Coumadin doasage=5,5,7.5 Repeat ([facility]) (13068) 7. Saturday Dosage 5.0 mg (Normal) 6. [...] order include: Draw Charge[i], PSA 11:11 ANTIGEN) (97288) PSA 6.92 ng/mL (Abnormal) Range: 0.00-4.00 11:11 Routine Venipuncture Comments: A copy of this report will be faxed to: Bettie Boswell in this order include: Draw Charge[i], PSA (30965) Draw Drawn (Normal) 17-Oct-2011 Routine Venipuncture 10:18 (51141) Draw Drawn (Normal) 10:18 TESTOSTERONE, FREE, Comments: Items in this order include: Protime & INR, Draw Charge[i], TESTOSTERONE, FREE, BIOAVAILABLE, AND TOTAL, LC/MS/ MSTesting performed at: [place], [address] [address], [place], [address], [employer] Chief: Michael Chávez [facility] TOTAL, LC/MS/MS ALBUMIN,SERUM 4.4 [...] ([facility]) (48902) 7. Saturday Dosage 5.0 mg (Normal) 6. [...] Panel, Hemoglobin A1C, Draw Charge[i] (HGB A1C) (78173) A1C 6.1 % (Normal) Range: 4.6-6.2 13:29 [...] (Normal) Range: 135-145 13:29 DIGOXIN, DRUG ASSAY (79322) DIG 0.85 ng/mL (Abnormal) Range: 0.90-2.00 07-Aug-2011 TESTOSTERONE, FREE, Comments: Items in this order include: TESTOSTERONE, FREE, BIOAVAILABLE, AND TOTAL, LC/MS/MSTesting performed at: [place], [address] [address], [place] , [address], [place] 12:53 WEAKLY BOUND AND TOTAL ratory Director: Michael Chávez MD.[facility] (16999) ALBUMIN,SERUM 4.4 g/dL (Normal) Range: 3.6-5.1 SEX [...] ([facility]) (18724) 7. Saturday Dosage 7.5 mg (Normal) 6. [...] ([facility]) (77318) 7. Saturday Dosage 5.0 mg (Normal) 5. [...] Boswell in this order include: PSA ANTIGEN) (52149) PSA 5.95 ng/mL (Abnormal) Range: 0.00-4.00 CBC-MALE- ORDER THIS Comments: Items in this order include : Hemoglobin A1C, Comprehensive Metabolic Panel, CBC 11:56 ONE! (60430) manual diff Not Indicated (Normal) mpv 7.65 [...] 6.24 10*3/uL (Normal) Range: 4.50-10.50 11:56 CMP (97754) Comments: Items in this order include: Hemoglobin [...] this order include: Digoxin, Draw Charge[i] 15:17 (91227) DIG 1.18 ng/mL (Normal) Range: 0.90-2.00 HEMOGLOBIN GLYCLATED Comments: Items in this order include: Hemoglobin A1C, Comprehensive Metabolic Panel, CBC 11:56 (HGB A1C) (86108) A1C 6.6 % (Abnormal) Range: 4.6-6.2 Comments: Consistent with diabetes. 13:48 PT (PROTHROMBIN TIME) Comments: change to coumadin 5mg x 2 day then 7.5mg x1 repeat the cycle; Items in this order include: Protime & INR, Draw Charge[i]cyclechange to coumadin 5mg x 2 day then 7.5mg x1 repeat the ([facility]) (10832) 6. Saturday Dosage 7.5 mg (Normal) 7. [...] & INR, PSA, Draw Charge[i] 09:43 ANTIGEN) (16122) PSA 5.84 ng/mL (Abnormal) Range: 0.00-4.00 09:43 PT (PROTHROMBIN TIME) Comments: no change in coumadin; no change in coumadin ([facility]) (92465) 7. Saturday Dosage 7.5 mg (Normal) 6. Saturday Dosage 5.0 mg (Normal) 5. Dosage 7.5 mg (Normal) 4. Saturday Dosage 5.0 mg (Normal) 3. Saturday Dosage 5.0 mg (Normal) 1. Saturday Dosage 5.0 mg (Normal) 2. Saturday Dosage 7.5 mg (Normal) INR 3.45 (Normal) PT 32.9 s (Abnormal) Range: 10.4-12.4 23-Nov-2010 PT (PROTHROMBIN TIME) 10:03 ([facility]) (59264) 6. Saturday Dosage 7.5 mg (Normal) 7. Saturday Dosage 5 mg (Normal) 1. Saturday Dosage 5 mg (Normal) 2. Saturday Dosage 7.5 mg (Normal) 3. Saturday Dosage 5 mg (Normal) 4. Saturday Dosage 7.5 mg (Normal) 5. Dosage 5 mg (Normal) INR 2.16 (Normal) PT 21.0 s (Abnormal) Range: 10.4-12.4 19-Oct-2010 PT (PROTHROMBIN TIME) 15:16 ([facility]) (66597) 6. Saturday Dosage 5 mg (Normal) 7. Saturday Dosage 7.5 mg (Normal) 3. Saturday Dosage 7.5 mg (Normal) 4. Saturday Dosage 5 mg (Normal) 5. Dosage 7.5 mg (Normal) 1. Saturday Dosage 7.5 mg (Normal) 2. Saturday Dosage 5 mg (Normal) INR 2.13 (Normal) PT 20.7 s (Abnormal) Range: 10.4-12.4 12-Sep-2010 PT (PROTHROMBIN TIME) 11:03 ([facility]) (03110) INR 2.57 (Normal) PT (PROTHROMBIN TIME) 24.8 s (Abnormal) Range: 11.5-13.5 22-Aug-2010 PT (PROTHROMBIN TIME) 13:41 ([facility]) (57115) 09-Aug-2010 PSA, MEDICARE ([id number]) Comments: please fax to dr hema boswell 09:54 PSA (Medicare) 4.83 ng/mL (Abnormal) Range: 0 - 4 09:34 PT (PROTHROMBIN TIME) ([facility] [place]) ([id number]) INR 2.68 (Normal) PT (PROTHROMBIN TIME) 25.8 s (Abnormal) Range: 11.5-13.5 27-Jun-2010 PT (PROTHROMBIN TIME) 08:38 ([facility] [place]) ([id number]) 26-Jun-2010 PT (PROTHROMBIN TIME) 16:21 ([facility] [place]) ([id number]) INR 1.89 (Normal) PT (PROTHROMBIN TIME) 18.4 s (Abnormal) Range: 11.5-13.5 Treatment Plan LIPID PANEL (13671); Ordered: 10/28/2015; Note: Verbal order from Dr. [...] problems with his a-fib at todays visit. [facility] Historical Summary On 26-Oct-2015 [facility] 16:00 to 16:03 Lab entry only - Controlled atrial fibrillation (427.31 | I48.91), Benign prostatic hypertrophy (600.00 | N40.0) On 08-Sep-2015 [facility] 16:01 to 16:21 Medication Entry - Benign essential hypertension (401.1 | I10), Controlled atrial fibrillation (427.31 | I48.91) On 02-Aug-2015 [facility] 08:43 to 08:50 Office Visit - PG (pyogenic granuloma) (686.1 | L98.0) On 27-Jul-2015 Encounter Reason: Skin Lesions - Note for "Skin lesions": 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 He said he is having quite a bit of pain with the nodule and some occasional drainage. Seems to be recurrent for him. 09:10 to 09:52 [facility] Office Visit - PG (pyogenic [...] nail problems": He continues with his usual medications.[facility] Lab entry only - Encounter for long-term (current) use of anticoagulants ( V58.61 | Z79.01) On 07-Jul-2015 [facility] 16:55 to 16:56 Office Visit [...] the stairs and I have to crawl. [facility] Historical Summary On [facility] 12:33 to 12:36 Lab entry only - Encounter for long-term (current) use of anticoagulants ( V58.61 | Z79.01) On [facility] 17:37 to 17:39 Lab entry only - Elevated PSA (790.93) On [facility] 10:10 to 10:11 Lab entry only - Encounter for long-term (current) use of anticoagulants ( V58.61 | Z79.01), Encounter for long-term (current) use of anticoagulants ( V58.61 | Z79.01) On 14-Jan-2015 [facility] 14:52 to 14:53 Lab entry only - Encounter for long-term (current) use of anticoagulants ( V58.61 | Z79.01), Encounter for long-term (current) use of anticoagulants ( V58.61 | Z79.01) On 29-Nov-2014 [facility] 12:31 to 15:09 Medication Entry - Diabetes mellitus (250.00 | E11.9) On 12-Nov-2014 [facility] 11:46 to 11:53 Medication Entry - Cellulitis, leg (682.6 | L03.119) On 11-Nov-2014 [facility] 09:48 to 10:00 Office Visit [...] "Transition into care": He feels things are improved.[facility] Historical Summary On 27-Oct-2014 [facility] 15:03 to 15:08 Lab entry only - Fibrillation, atrial (427.31), Encounter for long-term ( current) use of anticoagulants (V58.61 | Z79.01) On 18-Oct-2014 [facility] 17:08 to 17:09 Medication Entry - Gout (274.9 | M10.9) On 12-Oct-2014 [facility] 16:17 to 16:22 Lab entry only - Encounter for long-term (current) use of anticoagulants ( V58.61 | Z79.01) On 21-Sep-2014 [facility] 15:31 to 15:33 Radiology Visit - Carotid stenosis (433.10 | I65.29) On 14-Sep-2014 [facility] 09:33 to 09:36 Lab entry only - Encounter for long-term (current) use of anticoagulants ( V58.61 | Z79.01) On 24-Aug-2014 [facility] 16:31 to 16:34 Office Visit - Health education (V65.40 | Z71.9), Prevnar (PCV13)FOR MEDICARE USE ONLY Pneumovax injection (V03.82) 13286, Encounter for long-term ( current) use of [...] lifeline screening. He mentions the "discoloration" of ankles.[facility] Historical Summary On 11-Aug-2014 [facility] 16:16 to 16:19 Lab entry only - Fibrillation, atrial (427.31), Encounter for long-term ( current) use of anticoagulants (V58.61 | Z79.01) On 06-Aug-2014 [facility] 16:41 to 16:43 Medication Entry - Benign essential hypertension (401.1 | I10) On 21-Jun-2014 [facility] 11:12 to 11:14 Lab entry only - Encounter for long-term (current) use of anticoagulants ( V58.61 | Z79.01) On 03-Jun-2014 [facility] 16:13 to 16:15 Lab entry only - Encounter for long-term (current) use of anticoagulants ( V58.61 | Z79.01) On [facility] 13:22 to 13:23 Lab entry only - Elevated PSA (790.93), Encounter for long-term (current) use of anticoagulants (V58.61 | Z79.01) On [facility] 14:27 to 14:28 Office Visit [...] thing in the morning and on stairs. [facility] Historical Summary On 28-Dec-2013 [facility] 12:26 to 12:29 Medication Entry - Encounter for long-term (current) use of anticoagulants ( V58.61 | Z79.01), Diabetes mellitus (250.00 | E11.9), Fibrillation, atrial ( 427.31) On 03-Nov-2013 [facility] 09:01 to 11:53 Medication Entry - Fibrillation, atrial (427.31), Diabetes mellitus (250.00 | E11.9) On 30-Oct-2013 [facility] 15:55 to 16:00 Lab entry only - Encounter for long-term (current) use of anticoagulants ( V58.61 | Z79.01) On 27-Oct-2013 [facility] 17:57 to 17:59 Office Visit [...] M.D. after being in the hospital at [facility] on 10/16/13 & discharged on 10/17/13 dx jasmeet diaz, inr was done prior to visit.) . Note for "Transition into care": He passed a kidney stone a week ago.[facility] Historical Summary On 23-Oct-2013 [facility] 14:42 to 14:45 Lab entry only - Encounter for long-term (current) use of anticoagulants ( V58.61 | Z79.01) On 20-Oct-2013 [facility] 16:31 to 16:33 Lab entry only - Encounter for long-term (current) use of anticoagulants ( V58.61 | Z79.01) On 16-Sep-2013 [facility] 10:14 to 10:15 Lab entry only - Elevated PSA (790.93) On 15-Sep-2013 [facility] 11:11 to 11:12 Lab entry only - Encounter for long-term (current) use of anticoagulants ( V58.61 | Z79.01) On 07-Aug-2013 [facility] 14:32 to 14:33 Lab entry only - Benign essential hypertension (401.1 | I10), Diabetes mellitus (250.00 | E11.9) On 07-Aug-2013 [facility] 11:18 to 11:19 Lab entry only - Encounter for long-term (current) use of anticoagulants ( V58.61 | Z79.01) On 01-May-2013 [facility] 10:33 to 10:38 Office Visit [...] He did miss some meds while he traveled.[facility] Historical Summary On 29-Apr-2013 [facility] 11:46 to 11:49 Lab entry only - Encounter for long-term (current) use of anticoagulants ( V58.61 | Z79.01) On [facility] 16:39 to 16:42 Lab entry only - Encounter for long-term (current) use of anticoagulants ( V58.61 | Z79.01) On [facility] 19:40 to 19:42 Lab entry only - Elevated PSA (790.93) On [facility] 12:03 to 12:07 Office Visit [...] for "Cough": He has not had an antibiotic.[facility] Lab entry only - Encounter for long-term (current) use of anticoagulants ( V58.61 | Z79.01) On 16-Dec-2012 [facility] 18:21 to 18:23 Lab entry only - Encounter for long-term (current) use of anticoagulants ( V58.61 | Z79.01) On 27-Nov-2012 [facility] 16:52 to 16:53 Lab entry only - Encounter for long-term (current) use of anticoagulants ( V58.61) On 26-Nov-2012 [facility] 15:04 to 15:05 Office Visit [...] first thing in the morning and on stairs.[facility] Historical Summary On 29-Oct-2012 [facility] 16:15 to 16:17 Lab entry only - Encounter for long-term (current) use of anticoagulants ( V58.61) On 15-Oct-2012 [facility] 09:51 to 09:57 Lab entry only - Encounter for long-term (current) use of anticoagulants ( V58.61), Elevated PSA (790.93) On 14-Oct-2012 [facility] 10:25 to 10:26 Lab entry only - Encounter for long-term (current) use of anticoagulants ( V58.61) On 12-Sep-2012 [facility] 13:44 to 13:45 Medication Entry - Edema (782.3), Fibrillation, atrial (427.31) On 20-Aug-2012 [facility] 11:10 to 11:12 Medication Entry - Fibrillation, atrial (427.31), Edema (782.3) On 19-Aug-2012 [facility] 17:29 to 18:11 Medication Entry - Encounter for long-term (current) use of anticoagulants ( V58.61), Fibrillation, atrial (427.31), Diabetes mellitus (250.00) On 2011 [facility] 17:44 to 17:53 Office Visit - 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), Inflamed seborrheic keratosis (702.11), Hyperglycemia (790.29), Encounter for long-term (current) use of anticoagulants (V58.61), Fibrillation, atrial (427.31) On 01-Aug-2012 Encounter Reason: Follow up for chronic condition - The patient feels well with minor complaints (here today for a 3 month follow up with Dr. Romero ) .[facility] 09:34 to 10:39 Medication Entry - Encounter for long-term (current) use of anticoagulants ( V58.61) On 31-Jul-2012 [facility] 18:21 to 18:22 Historical Summary On 31-Jul-2012 [facility] 11:40 to 11:42 Lab entry only - Encounter for long-term (current) use of anticoagulants ( V58.61) On 23-Jun-2012 [facility] 18:47 to 18:52 Lab entry only - Elevated PSA (790.93), Encounter for long-term (current) use of anticoagulants (V58.61) On 23-Jun-2012 [facility] 15:48 to 15:53 Office Visit - Adjustment disorder with depressed mood (309.0), Encounter for long-term (current) use of anticoagulants (V58.61), Elevated PSA (790.93) On Encounter Reason: Follow up for chronic condition - The patient feels well with minor complaints (here for a 6 week follow up visit do to a new medication but did not start the medication).[facility] 11:19 to 13: 39 Historical Summary On 30-Apr-2012 [facility] 11:50 to 11:52 Lab entry only - Encounter for long-term (current) use of anticoagulants ( V58.61) On 28-Apr-2012 [facility] 17:23 to 17:26 Lab entry only - Elevated PSA (790.93), Encounter for long-term (current) use of anticoagulants (V58.61) On 28-Apr-2012 [facility] 14:19 to 14:22 Office Visit [...] , had lab done prior to appt today).[facility] Lab entry only - Edema (782.3), Hyperglycemia (790.29), Encounter for long- term (current) use of anticoagulants (V58.61) On [facility] 11:06 to 11:14 Lab entry only - Elevated PSA (790.93), Fibrillation, atrial (427.31), Edema ( 782.3) On [facility] 09:02 to 09:05 Lab entry only - Encounter for long-term (current) use of anticoagulants ( V58.61) On [facility] 16:44 to 16:45 Medication Entry On 26-Oct-2011 [facility] 13:30 to 13:32 Lab entry only - Elevated PSA (790.93) On 23-Oct-2011 [facility] 11:01 to 11:04 Lab entry only - Encounter for long-term (current) use of anticoagulants ( V58.61), Low testosterone (257.2) On 17-Oct-2011 [facility] 10:15 to 10:17 Medication Entry - Fibrillation, atrial (427.31) On 04-Oct-2011 [facility] 09:26 to 09:38 Medication Entry - Fibrillation, atrial (427.31), Edema (782.3), Encounter for long-term (current) use of anticoagulants (V58.61), Benign prostatic hypertrophy without lower urinary tract symptoms (LUTS) (600.00) On 02-Oct-2011 [facility] 18:56 to 19:02 Medication Entry - Encounter for long-term (current) use of anticoagulants ( V58.61), Fibrillation, atrial (427.31), Edema (782.3) On 26-Sep-2011 [facility] 11:06 to 11:11 Medication Entry - Fibrillation, atrial (427.31), Encounter for long-term ( current) use of anticoagulants (V58.61) On 24-Sep-2011 [facility] 10:41 to 10:49 Lab entry only - Low testosterone (257.2) On 10-Aug-2011 [facility] 13:03 to 13:05 Lab entry only - Hyperglycemia (790.29), Encounter for long-term (current) use of anticoagulants (V58.61), Fibrillation, atrial (427.31) On 08-Aug-2011 [facility] 13:27 to 13:29 Office Visit [...] he 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." [facility] Historical Summary On 06-Aug-2011 [facility] 12:22 to 12:24 Medication Entry - Fibrillation, atrial (427.31) On 05-Jun-2011 [facility] 08:54 to 08:59 Lab entry only - Encounter for long-term (current) use of anticoagulants ( V58.61) On 15-May-2011 [facility] 18:48 to 18:50 Office Visit [...] up is diabetes, hypertension, cardiovascular disorder and other.[facility] Medication Entry - Benign prostatic hypertrophy without lower urinary tract symptoms (LUTS) (600.00) On 19-Apr-2011 [facility] 08:49 to 08:51 Lab entry only - Benign prostatic hypertrophy without lower urinary tract symptoms (LUTS) (600.00) On 10-Apr-2011 [facility] 15:15 to 15:19 Office Visit [...] seeing dr. boswell the middle of apr.). [facility] Historical Summary On [facility] 16:05 to 16:18 Lab entry only - Encounter for long-term (current) use of anticoagulants ( V58.61) On [facility] 17:34 to 17:36 Lab entry only - Encounter for long-term (current) use of anticoagulants ( V58.61), Elevated PSA (790.93) On [facility] 09:42 to 09:43 Lab entry only - Encounter for long-term (current) use of anticoagulants ( V58.61) On 24-Nov-2010 [facility] 08:55 to 08:57 Lab entry only - Encounter for long-term (current) use of anticoagulants ( V58.61) On 20-Oct-2010 [facility] 14:42 to 14:46 Historical Summary - Encounter for long-term (current) use of anticoagulants ( V58.61) On 13-Sep-2010 [facility] 10:53 to 10:59 Historical Summary 12-Sep-2010 to 13-Sep-2010 [facility] Lab entry only - Encounter for long-term (current) use of anticoagulants ( V58.61) On 14-Aug-2010 [facility] 17:44 to 17:49 Historical Summary - Elevated PSA (790.93) 09-Aug-2010 to 15-Aug-2010 [facility] Lab entry only - Encounter for long-term (current) use of anticoagulants ( V58.61) 27-Jun-2010 to 28-Jun-2010 [facility] Lab entry only - Encounter for long-term (current) use of anticoagulants ( V58.61) On 26-Jun-2010 [facility] 16:21 to 22:23 Insurance Vijay Yuan; a guarantorMedicare [facility] [employer]
--- NOTE | 2017-10-22 17:54 | Emergency Department Report ---
Weakness HPI - General Chief complaint: Weakness Stated complaint: cough,weakness Time Seen by Provider: 10/22/17 17:07 Source: family Mode of arrival: wheelchair Limitations: altered mental status - History of Present Illness HPI Narrative: PT presents with family who reports pt has had a non productive cough since yesterday and today he has had increasing weakness. Family reports pt is normally alert, interactive, and ambulates without difficulty at home with his . He is currently confused, unable to appropriately answer questions, and family must assist for pt to stand from sitting or ambulate at all. reports pt saw PCP about a month ago for nasal congestion and was placed on an antibiotic without relief. Unknown fever. Denial of N/V/D. Complaint: generalized weakness Onset (ago): hour(s) Duration: constant - Related Data Home Medications Medication Instructions Recorded Confirmed Allopurinol [Zyloprim] 150 mg PO DAILY 10/22/17 10/22/17 Digoxin [Digitek] 250 mcg PO DAILY 10/22/17 10/22/17 Lisinopril [Prinivil] 10 mg PO DAILY 10/22/17 10/22/17 Metformin [Glucophage] 500 mg PO WB 10/22/17 10/22/17 Warfarin [Coumadin] 1 mg PO QTUTHSASU 10/22/17 10/22/17 Warfarin [Coumadin] 6 mg PO MOWEFR 10/22/17 10/22/17 dilTIAZem HCl [Cartia Xt] 240 mg PO DAILY 10/22/17 10/22/17 Allergies Allergy/AdvReac Type Severity Reaction Status Date / Time No Known Drug Allergies Allergy Mild Verified 09/23/16 16:01 Review of Systems All systems: reviewed and negative except as stated Constitutional: Reports: as per HPI Respiratory: Reports: as per HPI Gastrointestinal: Reports: as per HPI Musculoskeletal: Reports: as per HPI Neurological: Reports: as per HPI Physical Exam - Limitations Limitations: altered mental status - Normal Exams: Head:: Normocephalic without trauma Eyes:: Pupils are PERRLA w/ EOMI Neck:: Full range of motion, without adenopathy Chest/Respirations:: Clear all navas, with good airflow, and symmetry bilaterally Cardiovascular:: Regular rate and rhythm, without murmur or gallop, Pulses 2+ all extremities, capillary refill, <2 seconds all extremities Abdomen:: Bowel sounds positive, soft, non-tender, non-distended Musculoskeletal:: No tenderness, or deformity noted, good range of motion, all extremities Integumentary:: No rashes Neurological:: Patient is alert (to self and family) Psychiatric:: Patient exhibits, appropriate attention, emotion and affect Course Vital Signs Temperature 100.4 F 10/22/17 16:30 Pulse Rate 118 H 10/22/17 16:30 Respiratory Rate 20 10/22/17 16:30 Blood Pressure 183/79 H 10/22/17 16:30 Pulse Oximetry 92 10/22/17 16:30 Temperature 100.4 F 10/22/17 16:30 Pulse Rate 121 H 10/22/17 17:45 Respiratory Rate 22 10/22/17 17:45 Blood Pressure 152/91 H 10/22/17 17:45 Pulse Oximetry 96 10/22/17 17:45 Weakness - MDM Narrative Medical decision making narrative: Labs and X ray reviewed. Pt positive for Influenza A. Tylenol and Tamiflu given. Results discussed with family. Pt to be admitted Dr Melo Gabriel. Family agrees with plan. Questions answered. - Differential Diagnosis Differential diagnosis: Likely: acute myocardial infarction, anemia, hypoglycemia, hypothyroidism, sepsis, dehydration (viral infection, UTI, [place]) - Lab Data Attestation: I reviewed the patient's lab results. Result diagrams: 10/22/17 17:47 10/22/17 17:47 Lab Results 10/22/17 10/22/17 10/22/17 Range/Units 17:47 17:47 17:47 WBC 7.6 (4.5-11.0) T/MM3 RBC 4.92 (4.50-5.90) M/MM3 Hgb 14.7 (13.5-17.5) GM/DL Hct 45.7 (41-53) % MCV 92.9 (80-100) UM3 MCH 29.9 (26-34) UUG MCHC 32.2 (31-37) GM/DL RDW Std Deviation 46.7 (36.9-50.2) FL Plt Count 226 (130-400) T/MM3 MPV 9.7 (9.4-12.4) UM3 Immature Gran % (Auto) 0.3 (0.0-0.5) % Neut % (Auto) 79.1 H (33-66) % Lymph % (Auto) 11.8 L (23-45) % [place] % (Auto) 7.9 (0-9.0) % Eos % (Auto) 0.8 (0-4) % Baso % (Auto) 0.1 (0-2) % Neut # (Auto) 6.0 (1.8-7.7) T/MM3 Lymph # (Auto) 0.9 L (1-4.8) T/MM3 [place] # (Auto) 0.6 (0-0.8) T/MM3 Eos # (Auto) 0.1 (0-0.5) T/MM3 Baso # (Auto) 0.0 (0-0.2) T/MM3 Abs Immat Gran (auto) 0.02 (0.00-0.03) T/MM3 Turbidity < 20 (0-20) Sodium 145 H (134-144) MEQ/L Potassium 4.6 (3.6-5) MEQ/L Chloride 102 (98-107) MEQ/L Carbon Dioxide 31 H (22-30) MEQ/L Anion Gap 12 (5-15) MEQ/L BUN 22.0 H (9-20) MG/DL Creatinine 1.3 (0.8-1.5) MG/DL GFR Calculation 54 BUN/Creatinine Ratio 17 (6-26) RATIO Glucose 113 H (75-110) MG/DL Calculated Osmolality 283 H (261-280) MOSM/KG Calcium 9.5 (8.4-10.2) MG/DL Total Bilirubin 0.80 (0.20-1.30) MG/DL Icterus Index < 2 (0-7) AST 29 (17-59) U/L ALT 31 (21-72) U/L Alkaline Phosphatase 76 (38-126) U/L Total Protein 7.8 (6.3-8.2) G/DL Albumin 4.6 (3.5-5.0) G/DL Globulin 3.2 (2.4-3.6) G/DL Albumin/Globulin Ratio 1.4 (1.1-2.2) RATIO Specimen Hemolysis < 15 (0-25) Ur Collection Type Urine Color (YELLOW) Urine Clarity Urine pH (5.0-8.0) Ur Specific [place] (1.015-1.025) Urine Protein (NEGATIVE) Urine Glucose (UA) (NEGATIVE) Urine Ketones (NEGATIVE) Urine Occult Blood (NEGATIVE) Urine Nitrate (NEGATIVE) Urine Bilirubin (NEGATIVE) Urine Urobilinogen (NORMAL) EU/DL Ur Leukocyte Esterase (NEGATIVE) Urine RBC (0-3) /HPF Urine WBC (0-5) /HPF Ur Squamous Epith Cells Urine Bacteria (NEGATIVE) Ur Culture Indicated? Influenza Type A (PCR) Positive A* (Negative) Influenza Type B (PCR) Negative (Negative) 10/22/17 Range/Units 17:58 WBC (4.5-11.0) T/MM3 RBC (4.50-5.90) M/MM3 Hgb (13.5-17.5) GM/DL Hct (41-53) % MCV (80-100) UM3 MCH (26-34) UUG MCHC (31-37) GM/DL RDW Std Deviation (36.9-50.2) FL Plt Count (130-400) T/MM3 MPV (9.4-12.4) UM3 Immature Gran % (Auto) (0.0-0.5) % Neut % (Auto) (33-66) % Lymph % (Auto) (23-45) % [place] % (Auto) (0-9.0) % Eos % (Auto) (0-4) % Baso % (Auto) (0-2) % Neut # (Auto) (1.8-7.7) T/MM3 Lymph # (Auto) (1-4.8) T/MM3 [place] # (Auto) (0-0.8) T/MM3 Eos # (Auto) (0-0.5) T/MM3 Baso # (Auto) (0-0.2) T/MM3 Abs Immat Gran (auto) (0.00-0.03) T/MM3 Turbidity (0-20) Sodium (134-144) MEQ/L Potassium (3.6-5) MEQ/L Chloride (98-107) MEQ/L Carbon Dioxide (22-30) MEQ/L Anion Gap (5-15) MEQ/L BUN (9-20) MG/DL Creatinine (0.8-1.5) MG/DL GFR Calculation BUN/Creatinine Ratio (6-26) RATIO Glucose (75-110) MG/DL Calculated Osmolality (261-280) MOSM/KG Calcium (8.4-10.2) MG/DL Total Bilirubin (0.20-1.30) MG/DL Icterus Index (0-7) AST (17-59) U/L ALT (21-72) U/L Alkaline Phosphatase (38-126) U/L Total Protein (6.3-8.2) G/DL Albumin (3.5-5.0) G/DL Globulin (2.4-3.6) G/DL Albumin/Globulin Ratio (1.1-2.2) RATIO Specimen Hemolysis (0-25) Ur Collection Type Urine, cath straight Urine Color Yellow (YELLOW) Urine Clarity Clear Urine pH 5.5 (5.0-8.0) Ur Specific [place] 1.025 (1.015-1.025) Urine Protein Trace A (NEGATIVE) Urine Glucose (UA) Negative (NEGATIVE) Urine Ketones Trace A (NEGATIVE) Urine Occult Blood 1+ A (NEGATIVE) Urine Nitrate Negative (NEGATIVE) Urine Bilirubin 1+ A (NEGATIVE) Urine Urobilinogen 1.0 (NORMAL) EU/DL Ur Leukocyte Esterase Negative (NEGATIVE) Urine RBC 5-10 H (0-3) /HPF Urine WBC None seen (0-5) /HPF Ur Squamous Epith Cells 0-5 Urine Bacteria Trace H (NEGATIVE) Ur Culture Indicated? Cult not indicated Influenza Type A (PCR) (Negative) Influenza Type B (PCR) (Negative) - Radiology Data Attestation: I reviewed the patient's radiology results. (read per Dr Khalil consistent with viral process) Disposition Clinical Impression: Influenza A, Weakness Disposition: 02 To [facility] [place] [facility] Acute Care Condition: Stable Prescriptions: No Action dilTIAZem HCl [Cartia Xt] 240 mg PO DAILY Warfarin [Coumadin] 1 mg PO QTUTHSASU Warfarin [Coumadin] 6 mg PO MOWEFR Digoxin [Digitek] 250 mcg PO DAILY Lisinopril [Prinivil] 10 mg PO DAILY Metformin [Glucophage] 500 mg PO WB Allopurinol [Zyloprim] 150 mg PO DAILY Referrals: Blayne Blake DO [Family Provider] - Time of Disposition: 18:49 - Seen By: midlevel
--- OUTSIDE RECORDS SUMMARY | 2017-10-22 17:54 | External Medical Summary | Continuity of Care Document ---
:1940 Author Organization [facility] Address [address] [place] [address] Phone Care Team Providers Name Role Phone James Romero MD Primary Care Provider James Romero MD Unavailable Judith Clay Unavailable Unavailable Suzanne Rebollar Unavailable Unavailable Faby Torres Unavailable Unavailable Unavailable Unavailable Problems Name Dates [...] Comments:started on 10/17/13 after being dismissed from [facility] for kidney stone by gale [...] (5-325 MG) Inactive Comments:Medication taken as needed. 2/15/14 dx kidney stone from being discharged from [facility] testrone cream 10% apply 0.5ml [...] 1 OR 2 VIEWS Completed: Comments: right (02364) X-RAY EXAM OF BOTH KNEES, Completed: STANDING (88417) How to access health information Completed: online Follow up - Keep appt as scheduled Ordered:28-Oct-2014 CAROTID BILATERAL US ([id number]) Completed:14-Sep-2014 Comments: Verbal order from Dr. James Romero Follow up in 6 months Ordered:12-Aug-2014 PREVNAR 13 VALENT PNEUMOCOCCAL Completed:12-Aug-2014 VACCINE ([id number]) ADMINISTRATION OF PNEUMOCOCCAL Ordered:12-Aug-2014 CONJUGATE VACCINE (G0009) How to access health information Completed:12-Aug-2014 online Follow up in 6 months Ordered: Follow up in 2 months Ordered:26-Oct-2013 ADMIN INFLUENZA VIRUS VAC: FLU VACC Completed:26-Oct-2013 PRSV FREE INC ANTIG (90185) ADMINISTRATION OF INFLUENZA VIRUS Ordered:26-Oct-2013 VACCINE ([id number]) Follow up in 6 months Ordered:30-Apr-2013 Follow up - Keep appt as scheduled Ordered:02-Jan-2013 Follow up in 6 months Ordered:30-Oct-2012 Follow up in 3 months Ordered:01-Aug-2012 Follow up in 3 months Ordered:01-May-2012 Follow up in 6 weeks Ordered: ADMINISTRATION OF INFLUENZA VIRUS Ordered:14-May-2011 VACCINE (G0008) FLU VACC PRSV FREE INC ANTIG Completed:14-May-2011 ([id number]) Follow up in 2 months Ordered:14-May-2011 Follow up in 2 months Ordered: Annual Eye Exam Completed:22-Nov-2008 Colonoscopy, Screening Completed: Colonoscopy, Screening Completed:06-Oct-2014 Flu Vaccine Completed:26-Oct-2013 Flu Vaccine Completed:06-Jun-2012 Comments: jchd Flu Vaccine Completed:14-May-2011 Comments: high dose Pneumovax Completed:2008 prevnar 13 Completed:12-Aug-2014 PSA Completed: Comments: (6.15) PSA Completed:24-Aug-2014 Comments: (7.11) PSA Completed: Comments: (6.55) PSA Completed:10-Apr-2011 Comments: (5.95) PSA Completed:28-Apr-2012 Comments: (16.45) PSA Completed:23-Jun-2012 Comments: (8.05) PSA Completed:14-Oct-2012 Comments: (8.11) PSA Completed: Comments: (5.60) PSA Completed:15-Sep-2013 Comments: (5.40) Immunization Name Dates Details Fluzone Administered on:14-May-2011 Comments: Site: Deltoid (Left); high dose Lot #: [id number] Influenza, preserv. free, enhanced immunogncty, IM Administered on:2013 Comments: Site: Deltoid (Left) Lot #: [id number] Pneumococcal conjugate vaccine, 13 valent, IM Administered on:12-Aug-2014 Comments: Site: Deltoid (Left) Lot #: [id number] Social History Name Dates Details Tobacco use: Former smoker. Status: Active Current tobacco use: Former smoker. Status: Inactive Vital Signs Date Test Result Details 09:20 Temperature 98.4 f Comments: Method: Temporal [...] Comments: The left neck Final 10:36 SINGLE (57840) lesion was removed and also the left [...] not sent to pathology. 10:35 PUNCH BIOPSY (55833) Comments: After Final FIRST BIOPSY cleansing the [...] have a artifical heart valve? No 15:06 ([facility]) (35130) 9. Saturday Dosage 7.5 mg (Normal) 8. [...] order include: Draw Charge[i], Protime & INR (88584) Draw Drawn (Normal) [facility] (07190) Comments: Items in this order include: Basic [...] include: A COPY TO [i], PSA ANTIGEN) (42828) PSA 6.55 ng/mL (Abnormal) Range: 0.00-4.00 09:[address] Boswell Comments: A copy of this report will be faxed to: Bettie Boswell in this order include: A COPY TO [kyung] PSA Ordering Doctor . (Normal) 09:15 PT (PROTHROMBIN TIME) Comments: Items in this order include: Draw Charge[i], Protime & INRDoes patient have a artifical heart valve? No ([facility]) (55537) 8. Saturday Dosage 7.5 mg (Normal) 9. [...] order include: Draw Charge[i], Protime & INR (39127) Draw Drawn (Normal) 14-Jan-2015 PT (PROTHROMBIN TIME) Comments: Items in this order include: Draw Charge[i], Protime & INRDoes patient have a artifical heart valve? No 09:28 ([facility]) (59698) 9. Saturday Dosage 5.0 mg (Normal) 7. [...] order include: Draw Charge[i], Protime & INR (74347) Draw Drawn (Normal) -Oct-2014 PT (PROTHROMBIN TIME) Comments: Items in this order include: Draw Charge[i], Protime & INRDoes patient have a artifical heart valve? No 10:48 ([facility]) (36425) 9. day Dosage 7.5 mg (Normal) 8. Saturday Dosage 7.5 mg (Normal) 7. Dosage 7.5 mg (Normal) 6. Saturday Dosage 7.5 mg (Normal) 5. Saturday Dosage 7.5 mg (Normal) 4. Saturday Dosage 7.5 mg (Normal) 3. Saturday Dosage 7.5 mg (Normal) INR 3.67 (Normal) PT 39.7 s (Abnormal) Range: 9.3-11.7 10:48 Routine Venipuncture Comments: Items in this order include: Draw Charge[i], Protime & INR (30763) Draw Drawn (Normal) 29-Nov-2014 PT (PROTHROMBIN TIME) Comments: Items in this order include: Draw Charge[i], Protime & INRDoes patient have a artifical heart valve? No 10:28 ([facility]) (07548) 9. Saturday Dosage 5.0 mg (Normal) 8. [...] order include: Draw Charge[i], Protime & INR (15668) Draw Drawn (Normal) 21-Sep-2014 PT (PROTHROMBIN TIME) Comments: Items in this order include: Draw Charge[i], Protime & INRDoes patient have a artifical heart valve? No 10:08 ([facility]) (89229) 9. Saturday Dosage 5.0 mg (Normal) 7. [...] order include: Draw Charge[i], Protime & INR (32437) Draw Drawn (Normal) 24-Aug-2014 Routine Venipuncture Comments: Items in this order include: Protime & INR, Draw Charge[i] 09:59 (69147) Draw Drawn (Normal) 09:59 PT (PROTHROMBIN TIME) Comments: Items in this order include: Protime & INR, Draw Charge[i]INR value > 3.0 given to Estella by Beny Buckley patient have a artifical heart valve? No ([facility]) (77507) 9. Saturday Dosage 7.5 mg (Normal) 7. [...] Panel, Hemoglobin A1C, Urine Microalbumin, CBC ONE! (89247) manual diff Not Indicated (Normal) mpv 9.60 [...] Metabolic Panel, Hemoglobin A1C, Urine Microalbumin, CBC (02836) U A:C RATIO <30 mg/g Normal Range: <30 mg/g Normal (Normal) U CREAT 200 mg/dL (Normal) Range: 10-300 U ALB 80 mg/L (Abnormal) Range: 10 mg/L 09:59 HEMOGLOBIN GLYCLATED Comments: Items in this order include: Digoxin , PSA, Basic Metabolic Panel, Hemoglobin A1C, Urine Microalbumin, CBC (HGB A1C) (69847) A1C 5.9 % (Normal) Range: 4.6-6.2 Comments: Increased risk of diabetes. 09:59 [facility] (47902) Comments: Items in this order include: Digoxin, [...] Panel, Hemoglobin A1C, Urine Microalbumin, CBC ANTIGEN) (52066) PSA 7.11 ng/mL (Abnormal) Range: 0.00-4.00 09:59 DIGOXIN (96627) Comments: Items in this order include: Digoxin, PSA , Basic Metabolic Panel, Hemoglobin A1C, Urine Microalbumin, CBCTime of Last Dose? 08/23/2014 8:00 AMDosage? 0.25 DIG 0.36 ng/mL (Abnormal) Range: 0.90-2.00 05-Aug-2014 PT (PROTHROMBIN TIME) Comments: Items in this order include: Draw Charge[i], Protime & INRDoes patient have a artifical heart valve? No 10:48 ([facility]) (21810) 8. Saturday Dosage 7.5 mg (Normal) 9. [...] order include: Draw Charge[i], Protime & INR (17891) Draw Drawn (Normal) 03-Jun-2014 PT (PROTHROMBIN TIME) Comments: Items in this order include: Draw Charge[i], Protime & INRDoes patient have a artifical heart valve? No 13:56 ([facility]) (96745) 9. Saturday Dosage 7.5 mg (Normal) 8. [...] order include: Draw Charge[i], Protime & INR (20192) Draw Drawn (Normal) PT (PROTHROMBIN TIME) Comments: Items in this order include: Protime & INRDoes patient have a artifical heart valve? No 14:25 ([facility]) (11576) 9. Saturday Dosage 5.0 mg (Normal) 8. [...] this order include: Draw Charge[i], PSA ANTIGEN) (12871) PSA 6.15 ng/mL (Abnormal) Range: 0.00-4.00 14:25 Routine Venipuncture Comments: A copy of this report will be faxed to: Bettie Boswell in this order include: Draw Charge[i], PSA (94515) Draw Drawn (Normal) HEMOGLOBIN GLYCLATED Comments: Items in this order include: Hemoglobin A1C, Draw Charge[i], Comprehensive Metabolic Panel, Uric Acid 15:06 (HGB A1C) (72315) A1C 5.7 % (Normal) Range: 4.6-6.2 15:06 CMP (43535) Comments: Items in this order include: Hemoglobin [...] (Normal) Range: 135-145 15:06 URIC ACID BLOOD (78423) Comments: Items in this order include: Hemoglobin A1C, Draw Charge[i], Comprehensive Metabolic Panel, Uric Acid Uric Acid 8.0 mg/dL (Abnormal) Range: 3.6-7.7 15:06 Routine Venipuncture Comments: Items in this order include: Hemoglobin A1C, Draw Charge[i], Comprehensive Metabolic Panel, Uric Acid (20238) Draw Drawn (Normal) -January-2014 PT (PROTHROMBIN TIME) Comments: Items in this order include: Draw Charge[i], Protime & INRDoes patient have a artifical heart valve? No 14:27 ([facility]) (72629) 8. Saturday Dosage 5.0 mg (Normal) 9. [...] order include: Draw Charge[i], Protime & INR (29025) Draw Drawn (Normal) 26-Oct-2013 Draw Charge[i] Comments: Items in this order include: Basic Metabolic Panel, Draw Charge[i] 17:08 Draw Drawn (Normal) 17:05 [facility] (76925) Comments: Items in this order include: Basic [...] patient have a artifical heart valve? No ([facility]) (95785) 9. Saturday Dosage 5.0 mg (Normal) 7. [...] order include: Draw Charge[i], Protime & INR (04754) Draw Drawn (Normal) 15-Sep-2013 PSA (PROSTATE SPECIFIC Comments: A copy of this report will be faxed to: Bettie Boswell in this order include: A COPY TO [kyung] PSAPSA allowed more than once a year due to being a Diagonistic PSA not a screening PSA 11:05 ANTIGEN) (27012) PSA 5.40 ng/mL (Abnormal) Range: 0.00-4.00 11:05 [...] this order include: Comprehensive Metabolic Panel, Hemoglobin V9PNyty Hgb A1C was ran 99 Days ago. Check by MARGARITA 10:38 (HGB A1C) (54712) A1C 5.9 % (Normal) Range: 4.6-6.2 Comments: Increased risk of diabetes. 10:38 [facility] (36429) Comments: Items in this order include: Comprehensive Metabolic Panel, Hemoglobin [id number] Hgb A1C was ran 99 Days ago. [...] patient have a artifical heart valve? No ([facility]) (25118) 9. Saturday Dosage 5.0 (cycle of 5,5,7.5 [...] order include: Draw Charge[i], Protime & INR (61270) Draw Drawn (Normal) 10:38 DIGOXIN (89768) Comments: Items in this order include: DigoxinTime of Last Dose? 08/06/2013 8:30 AMDosage? 0.25 mg daily DIG 0.48 ng/mL (Abnormal) Range: 0.90-2.00 30-Apr-2013 HEMOGLOBIN GLYCLATED Comments: Items in this order include: Comprehensive Metabolic Panel, CBC, Hemoglobin [id number] Hgb A1C was ran 225 Days ago. Check by ms 11:58 (HGB A1C) (99342) A1C 6.1 % (Normal) Range: 4.6-6.2 11:58 CBC MALE- ORDER THIS Comments: Items in this order include: Comprehensive Metabolic Panel, CBC, Hemoglobin G1TTdto Hgb A1C was ran 225 Days ago. Check by ms ONE! (83786) manual diff Not Indicated (Normal) mpv 4.88 [...] 6.15 10*3/uL (Normal) Range: 4.50-10.50 11:58 CMP (15330) Comments: Items in this order include: Comprehensive Metabolic Panel, CBC, Hemoglobin [id number] Hgb A1C was ran 225 Days ago. [...] patient have a artifical heart valve? No ([facility]) (01249) 4. Saturday Dosage Repeat mg (Normal) 3. Saturday Dosage 7.5 mg (Normal) 2. Saturday Dosage 5.0 mg (Normal) 1. Saturday Dosage 5.0 mg (Normal) INR 2.60 (Normal) PT 26.8 s (Abnormal) Range: 10.4-12.4 PT (PROTHROMBIN TIME) Comments: Items in this order include: Draw Charge[i], Protime & INRDoes patient have a artifical heart valve? No 15:12 ([facility]) (27066) 5. Dosage Repeat mg (Normal) 4. Saturday Dosage 5.0 mg (Normal) 3. Saturday Dosage 5.0 mg (Normal) 2. Saturday Dosage 7.5 mg (Normal) INR 2.31 (Normal) PT 24.0 s (Abnormal) Range: 10.4-12.4 15:12 Routine Venipuncture Comments: Items in this order include: Draw Charge[i], Protime & INR (72640) Draw Drawn (Normal) [id number] PSA (PROSTATE SPECIFIC Comments: A copy of this report will be faxed to: Bettie Boswell in this order include: PSA, Draw Charge[i]PSA allowed more than once a year due to being a Diagonistic PSA not a screening PSA 10:00 ANTIGEN) (56336) PSA 5.60 ng/mL (Abnormal) Range: 0.00-4.00 10:00 [...] patient have a artifical heart valve? No ([facility]) (78932) 3. Saturday Dosage Repeat mg (Normal) 2. Saturday Dosage 7.5 mg (Normal) 1. Saturday Dosage 5.0 mg (Normal) INR 2.64 (Normal) PT 27.2 s (Abnormal) Range: 10.4-12.4 10:09 Routine Venipuncture Comments: Items in this order include: Draw Charge[i], Protime & INR (03530) Draw Drawn (Normal) 16-Dec-2012 PT (PROTHROMBIN TIME) Comments: Items in this order include: Draw Charge[i], Protime & INRDoes patient have a artifical heart valve? No 10:46 ([facility]) (46506) 4. Saturday Dosage Repeat mg (Normal) 3. Saturday Dosage 5.0 mg (Normal) 2. Saturday Dosage 7.5 mg (Normal) INR 2.13 (Normal) PT 22.2 s (Abnormal) Range: 10.4-12.4 10:46 Routine Venipuncture Comments: Items in this order include: Draw Charge[i], Protime & INR (24418) Draw Drawn (Normal) 26-Nov-2012 Routine Venipuncture Comments: Items in this order include: Protime & INR, Draw Charge[i] 15:05 (94209) Draw Drawn (Normal) 15:05 PT (PROTHROMBIN TIME) Comments: Items in this order include: Protime & INR, Draw Charge[i]Does patient have a artifical heart valve? No ([facility]) (69080) 4. Saturday Dosage 5.0 Repeat mg (Normal) 3. Saturday Dosage 5.0 mg (Normal) 2. Saturday Dosage 7.5 mg (Normal) INR 1.34 (Normal) PT 14.4 s (Abnormal) Range: 10.4-12.4 30-Oct-2012 PT (PROTHROMBIN TIME) Comments: Items in this order include: Draw Charge[i], Protime & INRINR value > 3.0 given to BW by Froy Chávez patient have a artifical heart valve? No 10:38 ([facility]) (40752) 7. Saturday Dosage 7.5 mg (Normal) 6. [...] order include: Draw Charge[i], Protime & INR (92758) Draw Drawn (Normal) 11:33 BMP Comments: Items [...] Dose? 10/29/2012 8:00 PMDosage? 0.25 mg Daily (04260) DIG 1.64 ng/mL (Normal) Range: 0.90-2.00 14-Oct-2012 PSA (PROSTATE SPECIFIC Comments: A copy of this report will be faxed to: Bettie Boswell in this order include: Draw Charge[i], Protime & INR, PSAPSA allowed more than once a year due to being a Diagonistic PSA not a screening PSA 10:25 ANTIGEN) (47659) PSA 8.11 ng/mL (Abnormal) Range: 0.00-4.00 10:25 PT (PROTHROMBIN TIME) Comments: PSA allowed more than once a year due to being a Diagonistic PSA not a screening PSACoumadin dosage=5,5,5,5,7.5 repeatDoes patient have a artifical heart valve? No ([facility]) (73115) 7. Saturday Dosage 7.5 mg (Normal) 6. [...] a Diagonistic PSA not a screening PSA (07700) Draw Drawn (Normal) 12-Sep-2012 PT (PROTHROMBIN TIME) Comments: Items in this order include: Draw Charge[i], Protime & INRDoes patient have a artifical heart valve? No 09:16 ([facility]) (04956) 6. Saturday Dosage Repeat mg (Normal) 5. Dosage 7.5 mg (Normal) 4. Saturday Dosage 5.0 mg (Normal) 3. Saturday Dosage 5.0 mg (Normal) 2. Saturday Dosage 5.0 mg (Normal) 1. Saturday Dosage 5.0 mg (Normal) INR 2.48 (Normal) PT 25.7 s (Abnormal) Range: 10.4-12.4 09:16 Routine Venipuncture Comments: Items in this order include: Draw Charge[i], Protime & INR (02290) Draw Drawn (Normal) 18-Aug-2012 PT (PROTHROMBIN TIME) Comments: Items in this order include: Protime & INRDoes patient have a artifical heart valve? No 11:44 ([facility]) (77657) 7. Saturday Dosage 5.0 mg (Normal) 6. [...] Days ago. Check by KB (HGB A1C) (40945) A1C 6.2 % (Normal) Range: 4.6-6.2 Comments: High risk of diabetes. 31-Jul-2012 PT (PROTHROMBIN TIME) Comments: Items in this order include: Draw Charge[i], Protime & INRINR value > 3.0 given to Estella by Beny Buckley patient have a artifical heart valve? No 13:32 ([facility]) (93285) 7. Saturday Dosage 5.0 mg (Normal) 6. [...] order include: Draw Charge[i], Protime & INR (25198) Draw Drawn (Normal) 23-Jun-2012 PSA (PROSTATE SPECIFIC Comments: A copy of this report will be faxed to: Bettie Boswell in this order include: Draw Charge[i], Protime & INR, PSAPSA allowed more than once a year due to being a Diagonistic PSA not a screening PSA 15:50 ANTIGEN) (67062) PSA 8.05 ng/mL (Abnormal) Range: 0.00-4.00 15:50 PT (PROTHROMBIN TIME) Comments: A copy of this report will be faxed to: Bettie Boswell in this order include: Draw Charge[i], Protime & INR , PSAPSA allowed more than once a year due to being a Diagonistic PSA not a screening ([facility]) (60661) PSADoes patient have a artifical heart valve? [...] a Diagonistic PSA not a screening PSA (87140) Draw Drawn (Normal) 13-May-2012 Draw Charge[i] Comments: [...] results to dr. hema boswell 14:28 ANTIGEN) (25480) PSA 16.45 ng/mL (Abnormal) Range: 0.00-4.00 14:28 PT (PROTHROMBIN TIME) Comments: Coumadin Dosage=5,5,5,7.5 Repeat. Took 7.5 on 04-27-12. ([facility]) (18822) 5. Dosage 7.5 Repeat mg (Normal) 4. Saturday Dosage 5.0 mg (Normal) 3. Saturday Dosage 5.0 mg (Normal) 2. Saturday Dosage 5.0 mg (Normal) 1. Saturday Dosage 7.5 mg (Normal) INR 2.17 (Normal) PT 22.7 s (Abnormal) Range: 10.4-12.4 14:28 Routine Venipuncture (03576) Draw Drawn (Normal) 13-May-2012 PSA (PROSTATE SPECIFIC Comments: A copy of this report will be faxed to: Bettie Boswell in this order include: PSA, Draw Charge[i]PSA allowed more than once a year due to being a Diagonistic PSA not a screening PSA 09:20 ANTIGEN) (46137) PSA 11.30 ng/mL (Abnormal) Range: 0.00-4.00 48-[id number]-[id number] TSH (THYROID Comments: Items in this order include: TSH 16:40 STIMULATING HORMONE) (37051) TSH 1.36 uIU/ml (Normal) Range: 0.34-5.60 14:50 PT (PROTHROMBIN TIME) Comments: Items in this order include: Draw Charge[i], Basic Metabolic Panel, Hemoglobin A1C, Protime & INRLast Hbg A1C was ran 218 Days ago. Check by DL ([facility]) (06168) 5. Dosage Repeat mg (Normal) 4. Saturday [...] ran 218 Days ago. Check (HGB A1C) (30701) by DLplease draw enough blood so if [...] ran 218 Days ago. Check by DL (71040) Draw Drawn (Normal) DIGOXIN, DRUG ASSAY Comments: Items in this order include: CBC, Comprehensive Metabolic Panel, CKI, Digoxin, Draw Charge[i] 09:08 (47848) DIG 0.38 ng/mL (Abnormal) Range: 0.90-2.00 09:08 CK Comments: Items in this order include: CBC, Comprehensive Metabolic Panel, CKI, Digoxin, Draw Charge[i] CKI 143 U/L (Normal) Range: 39-308 09:08 CMP (85551) Comments: Items in this order include: CBC, [...] Metabolic Panel, CKI, Digoxin, Draw Charge[i] ONE! (98047) manual diff Not Indicated (Normal) mpv 6.84 [...] order include: Protime & INR, Draw Charge[i] (42462) Draw Drawn (Normal) 16:45 PT (PROTHROMBIN TIME) Comments: Items in this order include: Protime & INR, Draw Charge[i]Coumadin doasage=5,5,7.5 Repeat ([facility]) (39902) 7. Saturday Dosage 5.0 mg (Normal) 6. [...] order include: Draw Charge[i], PSA 11:11 ANTIGEN) (49102) PSA 6.92 ng/mL (Abnormal) Range: 0.00-4.00 11:11 Routine Venipuncture Comments: A copy of this report will be faxed to: Bettie Boswell in this order include: Draw Charge[i], PSA (05358) Draw Drawn (Normal) 17-Oct-2011 Routine Venipuncture 10:18 (78206) Draw Drawn (Normal) 10:18 TESTOSTERONE, FREE, Comments: Items in this order include: Protime & INR, Draw Charge[i], TESTOSTERONE, FREE, BIOAVAILABLE, AND TOTAL, LC/MS/ MSTesting performed at: [facility] [place], [address] [address], [place], [address], Electrical Technology Instructor: Michael Chávez [facility] TOTAL, LC/MS/MS ALBUMIN,SERUM 4.4 [...] and benefits counseling. 10:18 PT (PROTHROMBIN TIME) ([facility]) (29742) 7. Saturday Dosage 5.0 mg (Normal) 6. [...] Panel, Hemoglobin A1C, Draw Charge[i] (HGB A1C) (85752) A1C 6.1 % (Normal) Range: 4.6-6.2 13:29 [...] (Normal) Range: 135-145 13:29 DIGOXIN, DRUG ASSAY (42331) DIG 0.85 ng/mL (Abnormal) Range: 0.90-2.00 07-Aug-2011 TESTOSTERONE, FREE, Comments: Items in this order include: TESTOSTERONE, FREE, BIOAVAILABLE, AND TOTAL, LC/MS/MSTesting performed at: [facility] [place], [address] [address], [place] , [address], [place] 12:53 WEAKLY BOUND AND TOTAL ratory Director: Michael Chávez MD.[facility] (12318) ALBUMIN,SERUM 4.4 g/dL (Normal) Range: 3.6-5.1 SEX [...] INR, Draw Charge[i]no change in coumadin dose ([facility]) (66921) 7. Saturday Dosage 7.5 mg (Normal) 6. [...] Metabolic Panel, Protime & INR, Draw Charge[i] ([facility]) (41330) 7. Saturday Dosage 5.0 mg (Normal) 5. [...] Boswell in this order include: PSA ANTIGEN) (41155) PSA 5.95 ng/mL (Abnormal) Range: 0.00-4.00 CBC-MALE- ORDER THIS Comments: Items in this order include : Hemoglobin A1C, Comprehensive Metabolic Panel, CBC 11:56 ONE! (07953) manual diff Not Indicated (Normal) mpv 7.65 [...] 6.24 10*3/uL (Normal) Range: 4.50-10.50 11:56 CMP (44088) Comments: Items in this order include: Hemoglobin [...] this order include: Digoxin, Draw Charge[i] 15:17 (20160) DIG 1.18 ng/mL (Normal) Range: 0.90-2.00 HEMOGLOBIN GLYCLATED Comments: Items in this order include: Hemoglobin A1C, Comprehensive Metabolic Panel, CBC 11:56 (HGB A1C) (91109) A1C 6.6 % (Abnormal) Range: 4.6-6.2 Comments: Consistent with diabetes. 13:48 PT (PROTHROMBIN TIME) Comments: change to coumadin 5mg x 2 day then 7.5mg x1 repeat the cycle; Items in this order include: Protime & INR, Draw Charge[i]cyclechange to coumadin 5mg x 2 day then 7.5mg x1 repeat the ([facility]) (20750) 6. Saturday Dosage 7.5 mg (Normal) 7. [...] & INR, PSA, Draw Charge[i] 09:43 ANTIGEN) (15888) PSA 5.84 ng/mL (Abnormal) Range: 0.00-4.00 09:43 PT (PROTHROMBIN TIME) Comments: no change in coumadin; no change in coumadin ([facility]) (38868) 7. day Dosage 7.5 mg (Normal) 6. Saturday Dosage 5.0 mg (Normal) 5. Dosage 7.5 mg (Normal) 4. Saturday Dosage 5.0 mg (Normal) 3. Saturday Dosage 5.0 mg (Normal) 1. Saturday Dosage 5.0 mg (Normal) 2. Saturday Dosage 7.5 mg (Normal) INR 3.45 (Normal) PT 32.9 s (Abnormal) Range: 10.4-12.4 23-Nov-2010 PT (PROTHROMBIN TIME) 10:03 ([facility]) (38083) 6. Saturday Dosage 7.5 mg (Normal) 7. Saturday Dosage 5 mg (Normal) 1. Saturday Dosage 5 mg (Normal) 2. Saturday Dosage 7.5 mg (Normal) 3. Saturday Dosage 5 mg (Normal) 4. Saturday Dosage 7.5 mg (Normal) 5. Dosage 5 mg (Normal) INR 2.16 (Normal) PT 21.0 s (Abnormal) Range: 10.4-12.4 19-Oct-2010 PT (PROTHROMBIN TIME) 15:16 ([facility]) (12468) 6. Joao Dosage 5 mg (Normal) 7. Saturday Dosage 7.5 mg (Normal) 3. Saturday Dosage 7.5 mg (Normal) 4. Saturday Dosage 5 mg (Normal) 5. Dosage 7.5 mg (Normal) 1. Willie Dosage 7.5 mg (Normal) 2. Quinton Dosage 5 mg (Normal) INR 2.13 (Normal) PT 20.7 s (Abnormal) Range: 10.4-12.4 12-Sep-2010 PT (PROTHROMBIN TIME) 11:03 ([facility]) (76954) INR 2.57 (Normal) PT (PROTHROMBIN TIME) 24.8 s (Abnormal) Range: 11.5-13.5 22-Aug-2010 PT (PROTHROMBIN TIME) 13:41 ([facility]) (65723) 09-Aug-2010 PSA, MEDICARE (G0103) Comments: please fax to dr hema boswell 09:54 PSA (Medicare) 4.83 ng/mL (Abnormal) Range: 0 - 4 09:34 PT (PROTHROMBIN TIME) ([facility]) (54604) INR 2.68 (Normal) PT (PROTHROMBIN TIME) 25.8 s (Abnormal) Range: 11.5-13.5 27-Jun-2010 PT (PROTHROMBIN TIME) 08:38 ([facility]) (68004) 26-Jun-2010 PT (PROTHROMBIN TIME) 16:21 ([facility]) (66527) INR 1.89 (Normal) PT (PROTHROMBIN TIME) 18.4 s (Abnormal) Range: 11.5-13.5 Treatment Plan Routine Venipuncture (34418); Ordered: 08/10/2015; Note: Verbal order from Dr. James RomeroPT (PROTHROMBIN TIME) ([facility]) ([id number]); Ordered: 08/10/2015; Note: Verbal order from Dr. James Romero Advance Directives Encounters Lab entry only - Encounter for long-term (current) use of anticoagulants ( V58.61 | Z79.01) On 07-Jul-2015 [facility] 16:55 to 16:56 Office Visit [...] the stairs and I have to crawl. [facility] Historical Summary On [facility] 12:33 to 12:36 Lab entry only - Encounter for long-term (current) use of anticoagulants ( V58.61 | Z79.01) On [facility] 17:37 to 17:39 Lab entry only - Elevated PSA (790.93) On [facility] 10:10 to 10:11 Lab entry only - Encounter for long-term (current) use of anticoagulants ( V58.61 | Z79.01), Encounter for long-term (current) use of anticoagulants ( V58.61 | Z79.01) On 14-Jan-2015 [facility] 14:52 to 14:53 Lab entry only - Encounter for long-term (current) use of anticoagulants ( V58.61 | Z79.01), Encounter for long-term (current) use of anticoagulants ( V58.61 | Z79.01) On 29-Nov-2014 [facility] 12:31 to 15:09 Medication Entry - Diabetes mellitus (250.00 | E11.9) On 12-Nov-2014 [facility] 11:46 to 11:53 Medication Entry - Cellulitis, leg (682.6 | L03.119) On 11-Nov-2014 [facility] 09:48 to 10:00 Office Visit [...] "Transition into care": He feels things are improved.[facility] Historical Summary On 27-Oct-2014 [facility] 15:03 to 15:08 Lab entry only - Fibrillation, atrial (427.31), Encounter for long-term ( current) use of anticoagulants (V58.61 | Z79.01) On 18-Oct-2014 [facility] 17:08 to 17:09 Medication Entry - Gout (274.9 | M10.9) On 12-Oct-2014 [facility] 16:17 to 16:22 Lab entry only - Encounter for long-term (current) use of anticoagulants ( V58.61 | Z79.01) On 21-Sep-2014 [facility] 15:31 to 15:33 Radiology Visit - Carotid stenosis (433.10 | I65.29) On 14-Sep-2014 [facility] 09:33 to 09:36 Lab entry only - Encounter for long-term (current) use of anticoagulants ( V58.61 | Z79.01) On 24-Aug-2014 [facility] 16:31 to 16:34 Office Visit - Health education (V65.40 | Z71.9), Prevnar (PCV13)FOR MEDICARE USE ONLY Pneumovax injection (V03.82) [id number], Encounter for long-term ( current) use of [...] lifeline screening. He mentions the "discoloration" of ankles.[facility] Historical Summary On 11-Aug-2014 [facility] 16:16 to 16:19 Lab entry only - Fibrillation, atrial (427.31), Encounter for long-term ( current) use of anticoagulants (V58.61 | Z79.01) On 06-Aug-2014 [facility] 16:41 to 16:43 Medication Entry - Benign essential hypertension (401.1 | I10) On 21-Jun-2014 [facility] 11:12 to 11:14 Lab entry only - Encounter for long-term (current) use of anticoagulants ( V58.61 | Z79.01) On 03-Jun-2014 [facility] 16:13 to 16:15 Lab entry only - Encounter for long-term (current) use of anticoagulants ( V58.61 | Z79.01) On [facility] 13:22 to 13:23 Lab entry only - Elevated PSA (790.93), Encounter for long-term (current) use of anticoagulants (V58.61 | Z79.01) On [facility] 14:27 to 14:28 Office Visit [...] thing in the morning and on stairs. [facility] Historical Summary On 28-Dec-2013 [facility] 12:26 to 12:29 Medication Entry - Encounter for long-term (current) use of anticoagulants ( V58.61 | Z79.01), Diabetes mellitus (250.00 | E11.9), Fibrillation, atrial ( 427.31) On 03-Nov-2013 [facility] 09:01 to 11:53 Medication Entry - Fibrillation, atrial (427.31), Diabetes mellitus (250.00 | E11.9) On 30-Oct-2013 [facility] 15:55 to 16:00 Lab entry only - Encounter for long-term (current) use of anticoagulants ( V58.61 | Z79.01) On 27-Oct-2013 [facility] 17:57 to 17:59 Office Visit [...] M.D. after being in the hospital at [facility] on 10/16/13 & discharged on 10/17/13 dx jasmeet diaz, inr was done prior to visit.) . Note for "Transition into care": He passed a kidney stone a week ago.[facility] Historical Summary On 23-Oct-2013 [facility] 14:42 to 14:45 Lab entry only - Encounter for long-term (current) use of anticoagulants ( V58.61 | Z79.01) On 20-Oct-2013 [facility] 16:31 to 16:33 Lab entry only - Encounter for long-term (current) use of anticoagulants ( V58.61 | Z79.01) On 16-Sep-2013 [facility] 10:14 to 10:15 Lab entry only - Elevated PSA (790.93) On 15-Sep-2013 [facility] 11:11 to 11:12 Lab entry only - Encounter for long-term (current) use of anticoagulants ( V58.61 | Z79.01) On 07-Aug-2013 [facility] 14:32 to 14:33 Lab entry only - Benign essential hypertension (401.1 | I10), Diabetes mellitus (250.00 | E11.9) On 07-Aug-2013 [facility] 11:18 to 11:19 Lab entry only - Encounter for long-term (current) use of anticoagulants ( V58.61 | Z79.01) On 01-May-2013 [facility] 10:33 to 10:38 Office Visit [...] He did miss some meds while he traveled.[facility] Historical Summary On 29-Apr-2013 [facility] 11:46 to 11:49 Lab entry only - Encounter for long-term (current) use of anticoagulants ( V58.61 | Z79.01) On [facility] 16:39 to 16:42 Lab entry only - Encounter for long-term (current) use of anticoagulants ( V58.61 | Z79.01) On [facility] 19:40 to 19:42 Lab entry only - Elevated PSA (790.93) On [facility] 12:03 to 12:07 Office Visit [...] for "Cough": He has not had an antibiotic.[facility] Lab entry only - Encounter for long-term (current) use of anticoagulants ( V58.61 | Z79.01) On 16-Dec-2012 [facility] 18:21 to 18:23 Lab entry only - Encounter for long-term (current) use of anticoagulants ( V58.61 | Z79.01) On 27-Nov-2012 [facility] 16:52 to 16:53 Lab entry only - Encounter for long-term (current) use of anticoagulants ( V58.61) On 26-Nov-2012 [facility] 15:04 to 15:05 Office Visit [...] first thing in the morning and on stairs.[facility] Historical Summary On 29-Oct-2012 [facility] 16:15 to 16:17 Lab entry only - Encounter for long-term (current) use of anticoagulants ( V58.61) On 15-Oct-2012 [facility] 09:51 to 09:57 Lab entry only - Encounter for long-term (current) use of anticoagulants ( V58.61), Elevated PSA (790.93) On 14-Oct-2012 [facility] 10:25 to 10:26 Lab entry only - Encounter for long-term (current) use of anticoagulants ( V58.61) On 12-Sep-2012 [facility] 13:44 to 13:45 Medication Entry - Edema (782.3), Fibrillation, atrial (427.31) On 20-Aug-2012 [facility] 11:10 to 11:12 Medication Entry - Fibrillation, atrial (427.31), Edema (782.3) On 19-Aug-2012 [facility] 17:29 to 18:11 Medication Entry - Encounter for long-term (current) use of anticoagulants ( V58.61), Fibrillation, atrial (427.31), Diabetes mellitus (250.00) On 2011 [facility] 17:44 to 17:53 Office Visit - 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), Inflamed seborrheic keratosis (702.11), Hyperglycemia (790.29), Encounter for long-term (current) use of anticoagulants (V58.61), Fibrillation, atrial (427.31) On 01-Aug-2012 Encounter Reason: Follow up for chronic condition - The patient feels well with minor complaints (here today for a 3 month follow up with Dr. Romreo ) .[facility] 09:34 to 10:39 Medication Entry - Encounter for long-term (current) use of anticoagulants ( V58.61) On 31-Jul-2012 [facility] 18:21 to 18:22 Historical Summary On 31-Jul-2012 [facility] 11:40 to 11:42 Lab entry only - Encounter for long-term (current) use of anticoagulants ( V58.61) On 23-Jun-2012 [facility] 18:47 to 18:52 Lab entry only - Elevated PSA (790.93), Encounter for long-term (current) use of anticoagulants (V58.61) On 23-Jun-2012 [facility] 15:48 to 15:53 Office Visit - Adjustment disorder with depressed mood (309.0), Encounter for long-term (current) use of anticoagulants (V58.61), Elevated PSA (790.93) On Encounter Reason: Follow up for chronic condition - The patient feels well with minor complaints (here for a 6 week follow up visit do to a new medication but did not start the medication).[facility] 11:19 to 13: 39 Historical Summary On 30-Apr-2012 [facility] 11:50 to 11:52 Lab entry only - Encounter for long-term (current) use of anticoagulants ( V58.61) On 28-Apr-2012 [facility] 17:23 to 17:26 Lab entry only - Elevated PSA (790.93), Encounter for long-term (current) use of anticoagulants (V58.61) On 28-Apr-2012 [facility] 14:19 to 14:22 Office Visit [...] , had lab done prior to appt today).[facility] Lab entry only - Edema (782.3), Hyperglycemia (790.29), Encounter for long- term (current) use of anticoagulants (V58.61) On [facility] 11:06 to 11:14 Lab entry only - Elevated PSA (790.93), Fibrillation, atrial (427.31), Edema ( 782.3) On [facility] 09:02 to 09:05 Lab entry only - Encounter for long-term (current) use of anticoagulants ( V58.61) On [facility] 16:44 to 16:45 Medication Entry On 26-Oct-2011 [facility] 13:30 to 13:32 Lab entry only - Elevated PSA (790.93) On 23-Oct-2011 [facility] 11:01 to 11:04 Lab entry only - Encounter for long-term (current) use of anticoagulants ( V58.61), Low testosterone (257.2) On 17-Oct-2011 [facility] 10:15 to 10:17 Medication Entry - Fibrillation, atrial (427.31) On 04-Oct-2011 [facility] 09:26 to 09:38 Medication Entry - Fibrillation, atrial (427.31), Edema (782.3), Encounter for long-term (current) use of anticoagulants (V58.61), Benign prostatic hypertrophy without lower urinary tract symptoms (LUTS) (600.00) On 02-Oct-2011 [facility] 18:56 to 19:02 Medication Entry - Encounter for long-term (current) use of anticoagulants ( V58.61), Fibrillation, atrial (427.31), Edema (782.3) On 26-Sep-2011 [facility] 11:06 to 11:11 Medication Entry - Fibrillation, atrial (427.31), Encounter for long-term ( current) use of anticoagulants (V58.61) On 24-Sep-2011 [facility] 10:41 to 10:49 Lab entry only - Low testosterone (257.2) On 10-Aug-2011 [facility] 13:03 to 13:05 Lab entry only - Hyperglycemia (790.29), Encounter for long-term (current) use of anticoagulants (V58.61), Fibrillation, atrial (427.31) On 08-Aug-2011 [facility] 13:27 to 13:29 Office Visit [...] he 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." [facility] Historical Summary On 06-Aug-2011 [facility] 12:22 to 12:24 Medication Entry - Fibrillation, atrial (427.31) On 05-Jun-2011 [facility] 08:54 to 08:59 Lab entry only - Encounter for long-term (current) use of anticoagulants ( V58.61) On 15-May-2011 [facility] 18:48 to 18:50 Office Visit [...] up is diabetes, hypertension, cardiovascular disorder and other.[facility] Medication Entry - Benign prostatic hypertrophy without lower urinary tract symptoms (LUTS) (600.00) On 19-Apr-2011 [facility] 08:49 to 08:51 Lab entry only - Benign prostatic hypertrophy without lower urinary tract symptoms (LUTS) (600.00) On 10-Apr-2011 [facility] 15:15 to 15:19 Office Visit [...] seeing dr. boswell the middle of apr.). [facility] Historical Summary On [facility] 16:05 to 16:18 Lab entry only - Encounter for long-term (current) use of anticoagulants ( V58.61) On [facility] 17:34 to 17:36 Lab entry only - Encounter for long-term (current) use of anticoagulants ( V58.61), Elevated PSA (790.93) On [facility] 09:42 to 09:43 Lab entry only - Encounter for long-term (current) use of anticoagulants ( V58.61) On 24-Nov-2010 [facility] 08:55 to 08:57 Lab entry only - Encounter for long-term (current) use of anticoagulants ( V58.61) On 20-Oct-2010 [facility] 14:42 to 14:46 Historical Summary - Encounter for long-term (current) use of anticoagulants ( V58.61) On 13-Sep-2010 [facility] 10:53 to 10:59 Historical Summary 12-Sep-2010 to 13-Sep-2010 [facility] Lab entry only - Encounter for long-term (current) use of anticoagulants ( V58.61) On 14-Aug-2010 [facility] 17:44 to 17:49 Historical Summary - Elevated PSA (790.93) 09-Aug-2010 to 15-Aug-2010 [facility] Lab entry only - Encounter for long-term (current) use of anticoagulants ( V58.61) 27-Jun-2010 to 28-Jun-2010 [facility] Lab entry only - Encounter for long-term (current) use of anticoagulants ( V58.61) On 26-Jun-2010 [facility] 16:21 to 22:23 Insurance Vijay Yuan; a guarantorMedicare WPSReserve [facility] Hospitalate Farm InsuranceCVS/[employer]
--- OUTSIDE RECORDS SUMMARY | 2017-10-22 17:54 | External Medical Summary | Continuity of Care Document ---
:1940 Author Organization [facility] Address [address] [place] [address] Phone Care Team Providers Name Role Phone Jamse Romero MD Primary Care Provider James Romero [...] on 10/17/[address] dismissed from [facility] for kidney stone by gale CITALOPRAM [...] kidney stone from being discharged from [facility] testrone cream 10% apply 0.5ml daily Inactive [...] Ordered:27-Jul-2015 HIGH DOSE QUADRIVALENT INFLUENZA Ordered:25-Jul-2015 VACCINE ([id number]) ADMINISTRATION OF INFLUENZA VIRUS Ordered:25-Jul-2015 VACCINE ([id number]) Follow up in 3 months Ordered:25-Jul-2015 Follow up in 4 months Ordered: X-RAY EXAM OF KNEE, 1 OR 2 VIEWS Completed: Comments: right (53847) X-RAY EXAM OF BOTH KNEES, Completed: STANDING ([id number]) How to access health information Completed: online Follow up - Keep appt as scheduled Ordered:28-Oct-2014 CAROTID BILATERAL US ([id number]) Completed:14-Sep-2014 Comments: Verbal order from Dr. James Romero Follow up in 6 months Ordered:12-Aug-2014 PREVNAR 13 VALENT PNEUMOCOCCAL Completed:12-Aug-2014 VACCINE ([id number]) ADMINISTRATION OF PNEUMOCOCCAL Ordered:12-Aug-2014 CONJUGATE VACCINE (G0009) How to access health information Completed:12-Aug-2014 online Follow up in 6 months Ordered: Follow up in 2 months Ordered:26-Oct-2013 ADMIN INFLUENZA VIRUS VAC: FLU VACC Completed:26-Oct-2013 PRSV FREE INC ANTIG ([id number]) ADMINISTRATION OF INFLUENZA VIRUS Ordered:26-Oct-2013 VACCINE (G0008) Follow up in 6 months Ordered:30-Apr-2013 Follow up - Keep appt as scheduled Ordered:02-Jan-2013 Follow up in 6 months Ordered:30-Oct-2012 Follow up in 3 months Ordered:01-Aug-2012 Follow up in 3 months Ordered:01-May-2012 Follow up in 6 weeks Ordered: ADMINISTRATION OF INFLUENZA VIRUS Ordered:14-May-2011 VACCINE (G0008) FLU VACC PRSV FREE INC ANTIG Completed:14-May-2011 (06554) Follow up in 2 months Ordered:14-May-2011 Follow up in 2 months Ordered: Annual Eye Exam Completed:22-Nov-2008 Colonoscopy, Screening Completed: Colonoscopy, Screening Completed:06-Oct-2014 Flu Vaccine Completed:26-Oct-2013 Flu Vaccine Completed:06-Jun-2012 Comments: [facility] Flu Vaccine Completed:14-May-2011 Comments: high dose Pneumovax Completed:2008 prevnar 13 Completed:12-Aug-2014 PSA Completed:28-Apr-2012 Comments: (16.45) PSA Completed:10-Apr-2011 Comments: (5.95) PSA Completed:23-Jun-2012 Comments: (8.05) PSA Completed:14-Oct-2012 Comments: (8.11) PSA Completed: Comments: (5.60) PSA Completed:15-Sep-2013 Comments: (5.40) PSA Completed: Comments: (6.15) PSA Completed:24-Aug-2014 Comments: (7.11) PSA Completed: Comments: (6.55) Immunization Name Dates Details Fluzone Administered on:14-May-2011 Comments: Site: Deltoid (Left); high dose Lot #: [id number] Influenza, preserv. free, enhanced immunogncty, IM Administered on:2013 Comments: Site: Deltoid (Left) Lot #: [id number] Pneumococcal conjugate vaccine, 13 valent, IM Administered on:12-Aug-2014 Comments: Site: Deltoid (Left) Lot #: [id number] Social History Name Dates Details Tobacco use: [...] Comments: The left neck Final 10:36 SINGLE (63712) lesion was removed and also the left [...] not sent to pathology. 10:35 PUNCH BIOPSY (33213) Comments: After Final FIRST BIOPSY cleansing the [...] have a artifical heart valve? No 15:06 ([facility]) (31917) 9. Saturday Dosage 7.5 mg (Normal) 8. [...] order include: Draw Charge[i], Protime & INR (69609) Draw Drawn (Normal) [facility] (88871) Comments: Items in this order include: Basic [...] include: A COPY TO [kyung], PSA ANTIGEN) (52468) PSA 6.55 ng/mL (Abnormal) Range: 0.00-4.00 09:[address] Boswell Comments: A copy of this report will be faxed to: Bettie Boswell in this order include: A COPY TO [kyung], PSA Ordering Doctor . (Normal) 09:15 PT (PROTHROMBIN TIME) Comments: Items in this order include: Draw Charge[i], Protime & INRDoes patient have a artifical heart valve? No ([facility]) (64192) 8. Saturday Dosage 7.5 mg (Normal) 9. [...] order include: Draw Charge[i], Protime & INR (72987) Draw Drawn (Normal) -Dec-2014 PT (PROTHROMBIN TIME) Comments: Items in this order include: Draw Charge[i], Protime & INRDoes patient have a artifical heart valve? No 09:28 ([facility]) (72405) 9. Saturday Dosage 5.0 mg (Normal) 7. [...] order include: Draw Charge[i], Protime & INR (23360) Draw Drawn (Normal) 28-Oct-2014 PT (PROTHROMBIN TIME) Comments: Items in this order include: Draw Charge[i], Protime & INRDoes patient have a artifical heart valve? No 10:48 ([facility]) (56470) 9. Saturday Dosage 7.5 mg (Normal) 8. [...] order include: Draw Charge[i], Protime & INR (36771) Draw Drawn (Normal) 29-Nov-2014 PT (PROTHROMBIN TIME) Comments: Items in this order include: Draw Charge[i], Protime & INRDoes patient have a artifical heart valve? No 10:28 ([facility]) (05621) 9. day Dosage 5.0 mg (Normal) 8. [...] order include: Draw Charge[i], Protime & INR (27744) Draw Drawn (Normal) 21-Sep-2014 PT (PROTHROMBIN TIME) Comments: Items in this order include: Draw Charge[i], Protime & INRDolynn patient have a artifical heart valve? No 10:08 ([facility]) (66064) 9. Saturday Dosage 5.0 mg (Normal) 7. [...] order include: Draw Charge[i], Protime & INR (88006) Draw Drawn (Normal) 24-Aug-2014 Routine Venipuncture Comments: Items in this order include: Protime & INR, Draw Charge[i] 09:59 (40946) Draw Drawn (Normal) 09:59 PT (PROTHROMBIN TIME) Comments: Items in this order include: Protime & INR, Draw Charge[i]INR value > 3.0 given to Estella by Beny Buckley patient have a artifical heart valve? No ([facility]) (90707) 9. Saturday Dosage 7.5 mg (Normal) 7. [...] Panel, Hemoglobin A1C, Urine Microalbumin, CBC ONE! (23917) manual diff Not Indicated (Normal) mpv 9.60 [...] Metabolic Panel, Hemoglobin A1C, Urine Microalbumin, CBC (77546) U A:C RATIO <30 mg/g Normal Range: <30 mg/g Normal (Normal) U CREAT 200 mg/dL (Normal) Range: 10-300 U ALB 80 mg/L (Abnormal) Range: 10 mg/L 09:59 HEMOGLOBIN GLYCLATED Comments: Items in this order include: Digoxin , PSA, Basic Metabolic Panel, Hemoglobin A1C, Urine Microalbumin, CBC (HGB A1C) (33074) A1C 5.9 % (Normal) Range: 4.6-6.2 Comments: Increased risk of diabetes. 09:59 [facility] (57250) Comments: Items in this order include: Digoxin, [...] Panel, Hemoglobin A1C, Urine Microalbumin, CBC ANTIGEN) (31580) PSA 7.11 ng/mL (Abnormal) Range: 0.00-4.00 09:59 DIGOXIN (59731) Comments: Items in this order include: Digoxin, PSA , Basic Metabolic Panel, Hemoglobin A1C, Urine Microalbumin, CBCTime of Last Dose? 08/23/2014 8:00 AMDosage? 0.25 DIG 0.36 ng/mL (Abnormal) Range: 0.90-2.00 05-Aug-2014 PT (PROTHROMBIN TIME) Comments: Items in this order include: Draw Charge[i], Protime & INRDoes patient have a artifical heart valve? No 10:48 ([facility]) (63030) 8. Saturday Dosage 7.5 mg (Normal) 9. [...] order include: Draw Charge[i], Protime & INR (78322) Draw Drawn (Normal) 03-Jun-2014 PT (PROTHROMBIN TIME) Comments: Items in this order include: Draw Charge[i], Protime & INRDoes patient have a artifical heart valve? No 13:56 ([facility]) (98288) 9. Saturday Dosage 7.5 mg (Normal) 8. [...] order include: Draw Charge[i], Protime & INR (88700) Draw Drawn (Normal) PT (PROTHROMBIN TIME) Comments: Items in this order include: Protime & INRDoes patient have a artifical heart valve? No 14:25 ([facility]) (60154) 9. Saturday Dosage 5.0 mg (Normal) 8. [...] this order include: Draw Charge[i], PSA ANTIGEN) (01511) PSA 6.15 ng/mL (Abnormal) Range: 0.00-4.00 14:25 Routine Venipuncture Comments: A copy of this report will be faxed to: Bettie Boswell in this order include: Draw Charge[i], PSA (15041) Draw Drawn (Normal) HEMOGLOBIN GLYCLATED Comments: Items in this order include: Hemoglobin A1C, Draw Charge[i], Comprehensive Metabolic Panel, Uric Acid 15:06 (HGB A1C) (84238) A1C 5.7 % (Normal) Range: 4.6-6.2 15:06 CMP (63989) Comments: Items in this order include: Hemoglobin [...] (Normal) Range: 135-145 15:06 URIC ACID BLOOD (55167) Comments: Items in this order include: Hemoglobin A1C, Draw Charge[i], Comprehensive Metabolic Panel, Uric Acid Uric Acid 8.0 mg/dL (Abnormal) Range: 3.6-7.7 15:06 Routine Venipuncture Comments: Items in this order include: Hemoglobin A1C, Draw Charge[i], Comprehensive Metabolic Panel, Uric Acid (51649) Draw Drawn (Normal) PT (PROTHROMBIN TIME) Comments: Items in this order include: Draw Charge[i], Protime & INRDoes patient have a artifical heart valve? No 14:27 ([facility]) (55474) 8. Saturday Dosage 5.0 mg (Normal) 9. [...] order include: Draw Charge[i], Protime & INR (43943) Draw Drawn (Normal) 26-Oct-2013 Draw Charge[i] Comments: Items in this order include: Basic Metabolic Panel, Draw Charge[i] 17:08 Draw Drawn (Normal) 17:05 [facility] (25142) Comments: Items in this order include: Basic [...] patient have a artifical heart valve? No ([facility]) (07038) 9. Saturday Dosage 5.0 mg (Normal) 7. [...] order include: Draw Charge[i], Protime & INR (16550) Draw Drawn (Normal) 15-Sep-2013 PSA (PROSTATE SPECIFIC Comments: A copy of this report will be faxed to: Bettie Boswell in this order include: A COPY TO [eliana PSAPSA allowed more than once a year due to being a Diagonistic PSA not a screening PSA 11:05 ANTIGEN) (90041) PSA 5.40 ng/mL (Abnormal) Range: 0.00-4.00 11:05 [...] this order include: Comprehensive Metabolic Panel, Hemoglobin [id number] Hgb A1C was ran 99 Days ago. Check by MARGARITA 10:38 (HGB A1C) (11678) A1C 5.9 % (Normal) Range: 4.6-6.2 Comments: Increased risk of diabetes. 10:38 [facility] (69596) Comments: Items in this order include: Comprehensive Metabolic Panel, Hemoglobin O1PBakq Hgb A1C was ran 99 Days ago. [...] patient have a artifical heart valve? No ([facility]) (31516) 9. Saturday Dosage 5.0 (cycle of 5,5,7.5 [...] order include: Draw Charge[i], Protime & INR (89956) Draw Drawn (Normal) 10:38 DIGOXIN (68736) Comments: Items in this order include: DigoxinTime of Last Dose? 08/06/2013 8:30 AMDosage? 0.25 mg daily DIG 0.48 ng/mL (Abnormal) Range: 0.90-2.00 30-Apr-2013 HEMOGLOBIN GLYCLATED Comments: Items in this order include: Comprehensive Metabolic Panel, CBC, Hemoglobin G1PNjyr Hgb A1C was ran 225 Days ago. Check by ms 11:58 (HGB A1C) (73545) A1C 6.1 % (Normal) Range: 4.6-6.2 11:58 CBC MALE- ORDER THIS Comments: Items in this order include: Comprehensive Metabolic Panel, CBC, Hemoglobin [id number] Hgb A1C was ran 225 Days ago. Check by ms ONE! (51155) manual diff Not Indicated (Normal) mpv 4.88 [...] 6.15 10*3/uL (Normal) Range: 4.50-10.50 11:58 CMP (13406) Comments: Items in this order include: Comprehensive Metabolic Panel, CBC, Hemoglobin [id number] Hgb A1C was ran 225 Days ago. [...] patient have a artifical heart valve? No ([facility]) (07171) 4. Saturday Dosage Repeat mg (Normal) 3. Saturday Dosage 7.5 mg (Normal) 2. Saturday Dosage 5.0 mg (Normal) 1. Saturday Dosage 5.0 mg (Normal) INR 2.60 (Normal) PT 26.8 s (Abnormal) Range: 10.4-12.4 PT (PROTHROMBIN TIME) Comments: Items in this order include: Draw Charge[i], Protime & INRDoes patient have a artifical heart valve? No 15:12 ([facility]) (39867) 5. Dosage Repeat mg (Normal) 4. Saturday Dosage 5.0 mg (Normal) 3. Saturday Dosage 5.0 mg (Normal) 2. Saturday Dosage 7.5 mg (Normal) INR 2.31 (Normal) PT 24.0 s (Abnormal) Range: 10.4-12.4 15:12 Routine Venipuncture Comments: Items in this order include: Draw Charge[i], Protime & INR (66672) Draw Drawn (Normal) PSA (PROSTATE SPECIFIC Comments: A copy of this report will be faxed to: Boswell, BrianItems in this order include: PSA, Draw Charge[i]PSA allowed more than once a year due to being a Diagonistic PSA not a screening PSA 10:00 ANTIGEN) (54778) PSA 5.60 ng/mL (Abnormal) Range: 0.00-4.00 10:00 Draw Charge[i] Comments: A copy of this report will be faxed to: Hmea BoswellIte in this order include: PSA, Draw Charge[i]PSA allowed more than once a year due to being a Diagonistic PSA not a screening PSA Draw Drawn (Normal) 10:09 PT (PROTHROMBIN TIME) Comments: Items in this order include: Draw Charge[i], Protime & INRDoes patient have a artifical heart valve? No ([facility]) (02579) 3. Saturday Dosage Repeat mg (Normal) 2. Saturday Dosage 7.5 mg (Normal) 1. Saturday Dosage 5.0 mg (Normal) INR 2.64 (Normal) PT 27.2 s (Abnormal) Range: 10.4-12.4 10:09 Routine Venipuncture Comments: Items in this order include: Draw Charge[i], Protime & INR (24376) Draw Drawn (Normal) 16-Dec-2012 PT (PROTHROMBIN TIME) Comments: Items in this order include: Draw Charge[i], Protime & INRDoes patient have a artifical heart valve? No 10:46 ([facility]) (66728) 4. Saturday Dosage Repeat mg (Normal) 3. Saturday Dosage 5.0 mg (Normal) 2. Saturday Dosage 7.5 mg (Normal) INR 2.13 (Normal) PT 22.2 s (Abnormal) Range: 10.4-12.4 10:46 Routine Venipuncture Comments: Items in this order include: Draw Charge[i], Protime & INR (09931) Draw Drawn (Normal) 26-Nov-2012 Routine Venipuncture Comments: Items in this order include: Protime & INR, Draw Charge[i] 15:05 (29331) Draw Drawn (Normal) 15:05 PT (PROTHROMBIN TIME) Comments: Items in this order include: Protime & INR, Draw Charge[i]Does patient have a artifical heart valve? No ([facility]) (21741) 4. Saturday Dosage 5.0 Repeat mg (Normal) 3. Saturday Dosage 5.0 mg (Normal) 2. Saturday Dosage 7.5 mg (Normal) INR 1.34 (Normal) PT 14.4 s (Abnormal) Range: 10.4-12.4 30-Oct-2012 PT (PROTHROMBIN TIME) Comments: Items in this order include: Draw Charge[i], Protime & INRINR value > 3.0 given to BW by Froy Chávez patient have a artifical heart valve? No 10:38 ([facility]) (15698) 7. Saturday Dosage 7.5 mg (Normal) 6. [...] order include: Draw Charge[i], Protime & INR (58355) Draw Drawn (Normal) 11:33 BMP Comments: Items [...] Dose? 10/29/2012 8:00 PMDosage? 0.25 mg Daily (35733) DIG 1.64 ng/mL (Normal) Range: 0.90-2.00 14-Oct-2012 PSA (PROSTATE SPECIFIC Comments: A copy of this report will be faxed to: Bettie Boswell in this order include: Draw Charge[i], Protime & INR, PSAPSA allowed more than once a year due to being a Diagonistic PSA not a screening PSA 10:25 ANTIGEN) (34798) PSA 8.11 ng/mL (Abnormal) Range: 0.00-4.00 10:25 PT (PROTHROMBIN TIME) Comments: PSA allowed more than once a year due to being a Diagonistic PSA not a screening PSACoumadin dosage=5,5,5,5,7.5 repeatDoes patient have a artifical heart valve? No ([facility]) (55286) 7. Saturday Dosage 7.5 mg (Normal) 6. [...] a Diagonistic PSA not a screening PSA (77585) Draw Drawn (Normal) 12-Sep-2012 PT (PROTHROMBIN TIME) Comments: Items in this order include: Draw Charge[i], Protime & INRDoes patient have a artifical heart valve? No 09:16 ([facility]) (10573) 6. Saturday Dosage Repeat mg (Normal) 5. Dosage 7.5 mg (Normal) 4. Saturday Dosage 5.0 mg (Normal) 3. Saturday Dosage 5.0 mg (Normal) 2. Saturday Dosage 5.0 mg (Normal) 1. Saturday Dosage 5.0 mg (Normal) INR 2.48 (Normal) PT 25.7 s (Abnormal) Range: 10.4-12.4 09:16 Routine Venipuncture Comments: Items in this order include: Draw Charge[i], Protime & INR (05048) Draw Drawn (Normal) 18-Aug-2012 PT (PROTHROMBIN TIME) Comments: Items in this order include: Protime & INRDolynn patient have a artifical heart valve? No 11:44 ([facility]) (84810) 7. Saturday Dosage 5.0 mg (Normal) 6. [...] Days ago. Check by KB (HGB A1C) (69576) A1C 6.2 % (Normal) Range: 4.6-6.2 Comments: High risk of diabetes. 31-Jul-2012 PT (PROTHROMBIN TIME) Comments: Items in this order include: Draw Charge[i], Protime & INRINR value > 3.0 given to Estella by Beny Buckley patient have a artifical heart valve? No 13:32 ([facility]) (20487) 7. Saturday Dosage 5.0 mg (Normal) 6. [...] order include: Draw Charge[i], Protime & INR (42002) Draw Drawn (Normal) 23-Jun-2012 PSA (PROSTATE SPECIFIC Comments: A copy of this report will be faxed to: Bettie Boswell in this order include: Draw Charge[i], Protime & INR, PSAPSA allowed more than once a year due to being a Diagonistic PSA not a screening PSA 15:50 ANTIGEN) (77537) PSA 8.05 ng/mL (Abnormal) Range: 0.00-4.00 15:50 PT (PROTHROMBIN TIME) Comments: A copy of this report will be faxed to: Bettie Boswell in this order include: Draw Charge[i], Protime & INR , PSAPSA allowed more than once a year due to being a Diagonistic PSA not a screening ([facility]) (00192) PSADoes patient have a artifical heart valve? [...] a Diagonistic PSA not a screening PSA (66181) Draw Drawn (Normal) 13-May-2012 Draw Charge[i] Comments: [...] results to dr. hema boswell 14:28 ANTIGEN) (03047) PSA 16.45 ng/mL (Abnormal) Range: 0.00-4.00 14:28 PT (PROTHROMBIN TIME) Comments: Coumadin Dosage=5,5,5,7.5 Repeat. Took 7.5 on 04-27-12. ([facility]) (77456) 5. Dosage 7.5 Repeat mg (Normal) 4. Saturday Dosage 5.0 mg (Normal) 3. Saturday Dosage 5.0 mg (Normal) 2. Saturday Dosage 5.0 mg (Normal) 1. Saturday Dosage 7.5 mg (Normal) INR 2.17 (Normal) PT 22.7 s (Abnormal) Range: 10.4-12.4 14:28 Routine Venipuncture (12364) Draw Drawn (Normal) 13-May-2012 PSA (PROSTATE SPECIFIC Comments: A copy of this report will be faxed to: Bettie Boswell in this order include: PSA, Draw Charge[i]PSA allowed more than once a year due to being a Diagonistic PSA not a screening PSA 09:20 ANTIGEN) (70582) PSA 11.30 ng/mL (Abnormal) Range: 0.00-4.00 TSH (THYROID Comments: Items in this order include: TSH 16:40 STIMULATING HORMONE) (86154) TSH 1.36 uIU/ml (Normal) Range: 0.34-5.60 14:50 PT (PROTHROMBIN TIME) Comments: Items in this order include: Draw Charge[i], Basic Metabolic Panel, Hemoglobin A1C, Protime & INRLast Hbg A1C was ran 218 Days ago. Check by DL ([facility]) (85248) 5. Dosage Repeat mg (Normal) 4. Saturday [...] ran 218 Days ago. Check (HGB A1C) (43709) by DLplease draw enough blood so if [...] ran 218 Days ago. Check by DL (15051) Draw Drawn (Normal) DIGOXIN, DRUG ASSAY Comments: Items in this order include: CBC, Comprehensive Metabolic Panel, CKI, Digoxin, Draw Charge[i] 09:08 (06936) DIG 0.38 ng/mL (Abnormal) Range: 0.90-2.00 09:08 CK Comments: Items in this order include: CBC, Comprehensive Metabolic Panel, CKI, Digoxin, Draw Charge[i] CKI 143 U/L (Normal) Range: 39-308 09:08 CMP (52741) Comments: Items in this order include: CBC, [...] Metabolic Panel, CKI, Digoxin, Draw Charge[i] ONE! (81056) manual diff Not Indicated (Normal) mpv 6.84 [...] order include: Protime & INR, Draw Charge[i] (43980) Draw Drawn (Normal) 16:45 PT (PROTHROMBIN TIME) Comments: Items in this order include: Protime & INR, Draw Charge[i]Coumadin doasage=5,5,7.5 Repeat ([facility]) (46120) 7. Saturday Dosage 5.0 mg (Normal) 6. [...] order include: Draw Charge[i], PSA 11:11 ANTIGEN) (66564) PSA 6.92 ng/mL (Abnormal) Range: 0.00-4.00 11:11 Routine Venipuncture Comments: A copy of this report will be faxed to: Bettie Boswell in this order include: Draw Charge[i], PSA (92138) Draw Drawn (Normal) 17-Oct-2011 Routine Venipuncture 10:18 (58724) Draw Drawn (Normal) 10:18 TESTOSTERONE, FREE, Comments: Items in this order include: Protime & INR, Draw Charge[i], TESTOSTERONE, FREE, BIOAVAILABLE, AND TOTAL, LC/MS/ MSTesting performed at: [place], [address] [address], [place], [address], [employer]: Michael Chávez MDQuest TOTAL, LC/MS/MS ALBUMIN,SERUM [...] and benefits counseling. 10:18 PT (PROTHROMBIN TIME) ([facility]) (92634) 7. Saturday Dosage 5.0 mg (Normal) 6. [...] Panel, Hemoglobin A1C, Draw Charge[i] (HGB A1C) (38696) A1C 6.1 % (Normal) Range: 4.6-6.2 13:29 [...] (Normal) Range: 135-145 13:29 DIGOXIN, DRUG ASSAY (82891) DIG 0.85 ng/mL (Abnormal) Range: 0.90-2.00 07-Aug-2011 TESTOSTERONE, FREE, Comments: Items in this order include: TESTOSTERONE, FREE, BIOAVAILABLE, AND TOTAL, LC/MS/MSTesting performed at: [place], [address] [address] , [place] , [address], [place] 12:53 WEAKLY BOUND AND TOTAL ratory Director: Michael Chávez MD.[facility] (61178) ALBUMIN,SERUM 4.4 g/dL (Normal) Range: 3.6-5.1 SEX [...] INR, Draw Charge[i]no change in coumadin dose ([facility]) (56361) 7. Saturday Dosage 7.5 mg (Normal) 6. [...] Metabolic Panel, Protime & INR, Draw Charge[i] ([facility]) (41678) 7. Saturday Dosage 5.0 mg (Normal) 5. [...] Boswell in this order include: PSA ANTIGEN) (96878) PSA 5.95 ng/mL (Abnormal) Range: 0.00-4.00 CBC-MALE- ORDER THIS Comments: Items in this order include : Hemoglobin A1C, Comprehensive Metabolic Panel, CBC 11:56 ONE! (75535) manual diff Not Indicated (Normal) mpv 7.65 [...] 6.24 10*3/uL (Normal) Range: 4.50-10.50 11:56 CMP (41658) Comments: Items in this order include: Hemoglobin [...] this order include: Digoxin, Draw Charge[i] 15:17 (54061) DIG 1.18 ng/mL (Normal) Range: 0.90-2.00 HEMOGLOBIN GLYCLATED Comments: Items in this order include: Hemoglobin A1C, Comprehensive Metabolic Panel, CBC 11:56 (HGB A1C) (18965) A1C 6.6 % (Abnormal) Range: 4.6-6.2 Comments: Consistent with diabetes. 13:48 PT (PROTHROMBIN TIME) Comments: change to coumadin 5mg x 2 day then 7.5mg x1 repeat the cycle; Items in this order include: Protime & INR, Draw Charge[i]cyclechange to coumadin 5mg x 2 day then 7.5mg x1 repeat the ([facility]) (81105) 6. Joao Dosage 7.5 mg (Normal) 7. [...] & INR, PSA, Draw Charge[i] 09:43 ANTIGEN) (50173) PSA 5.84 ng/mL (Abnormal) Range: 0.00-4.00 09:43 PT (PROTHROMBIN TIME) Comments: no change in coumadin; no change in coumadin ([facility]) (22142) 7. Saturday Dosage 7.5 mg (Normal) 6. Saturday Dosage 5.0 mg (Normal) 5. Dosage 7.5 mg (Normal) 4. Saturday Dosage 5.0 mg (Normal) 3. Saturday Dosage 5.0 mg (Normal) 1. Saturday Dosage 5.0 mg (Normal) 2. Saturday Dosage 7.5 mg (Normal) INR 3.45 (Normal) PT 32.9 s (Abnormal) Range: 10.4-12.4 23-Nov-2010 PT (PROTHROMBIN TIME) 10:03 ([facility]) (28989) 6. Saturday Dosage 7.5 mg (Normal) 7. Saturday Dosage 5 mg (Normal) 1. Saturday Dosage 5 mg (Normal) 2. Saturday Dosage 7.5 mg (Normal) 3. Saturday Dosage 5 mg (Normal) 4. Saturday Dosage 7.5 mg (Normal) 5. Dosage 5 mg (Normal) INR 2.16 (Normal) PT 21.0 s (Abnormal) Range: 10.4-12.4 19-Oct-2010 PT (PROTHROMBIN TIME) 15:16 ([facility]) (32774) 6. Saturday Dosage 5 mg (Normal) 7. Saturday Dosage 7.5 mg (Normal) 3. Saturday Dosage 7.5 mg (Normal) 4. Saturday Dosage 5 mg (Normal) 5. Dosage 7.5 mg (Normal) 1. Saturday Dosage 7.5 mg (Normal) 2. Saturday Dosage 5 mg (Normal) INR 2.13 (Normal) PT 20.7 s (Abnormal) Range: 10.4-12.4 12-Sep-2010 PT (PROTHROMBIN TIME) 11:03 ([facility]) (20605) INR 2.57 (Normal) PT (PROTHROMBIN TIME) 24.8 s (Abnormal) Range: 11.5-13.5 22-Aug-2010 PT (PROTHROMBIN TIME) 13:41 ([facility]) (08474) 09-Aug-2010 PSA, MEDICARE (G0103) Comments: please fax to dr hema boswell 09:54 PSA (Medicare) 4.83 ng/mL (Abnormal) Range: 0 - 4 09:34 PT (PROTHROMBIN TIME) ([facility]) (82645) INR 2.68 (Normal) PT (PROTHROMBIN TIME) 25.8 s (Abnormal) Range: 11.5-13.5 27-Jun-2010 PT (PROTHROMBIN TIME) 08:38 ([facility]) (41529) 26-Jun-2010 PT (PROTHROMBIN TIME) 16:21 ([facility]) (92618) INR 1.89 (Normal) PT (PROTHROMBIN TIME) 18.4 s (Abnormal) Range: 11.5-13.5 Treatment Plan Routine Venipuncture (82081); Ordered: 08/10/2015; Note: Verbal order from Dr. James RomeroPT (PROTHROMBIN TIME) ([facility] [facility] [place] ([id number]); Ordered: 08/10/2015; Note: Verbal order from Dr. James RomeroURIC ACID BLOOD ([id number]); Ordered: 2014HEMOGLOBIN GLYCLATED (HGB A1C) (08048); Ordered: 08/10/2015CK (73598); Ordered: 08/10/2015CMP (89860); Ordered: 08/10/2015CBC MALE- ORDER THIS ONE! 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 He said he is having quite a bit of pain with the nodule and some occasional drainage. Seems to be recurrent for him. 09:10 to 09:52 [facility] Office Visit - PG (pyogenic granuloma) (686.1 [...] nail problems": He continues with his usual medications.[facility] Lab entry only - Encounter for long-term (current) use of anticoagulants ( V58.61 | Z79.01) On 07-Jul-2015 [facility] 16:55 to 16:56 Office Visit - Benign [...] the stairs and I have to crawl. [facility] Historical Summary On [facility] 12:33 to 12:36 Lab entry only - Encounter for long-term (current) use of anticoagulants ( V58.61 | Z79.01) On [facility] 17:37 to 17:39 Lab entry only - Elevated PSA (790.93) On [facility] 10:10 to 10:11 Lab entry only - Encounter for long-term (current) use of anticoagulants ( V58.61 | Z79.01), Encounter for long-term (current) use of anticoagulants ( V58.61 | Z79.01) On 14-Jan-2015 [facility] 14:52 to 14:53 Lab entry only - Encounter for long-term (current) use of anticoagulants ( V58.61 | Z79.01), Encounter for long-term (current) use of anticoagulants ( V58.61 | Z79.01) On 29-Nov-2014 [facility] 12:31 to 15:09 Medication Entry - Diabetes mellitus (250.00 | E11.9) On 12-Nov-2014 [facility] 11:46 to 11:53 Medication Entry - Cellulitis, leg (682.6 | L03.119) On 11-Nov-2014 [facility] 09:48 to 10:00 Office Visit - Gout [...] "Transition into care": He feels things are improved.[facility] Historical Summary On 27-Oct-2014 [facility] 15:03 to 15:08 Lab entry only - Fibrillation, atrial (427.31), Encounter for long-term ( current) use of anticoagulants (V58.61 | Z79.01) On 18-Oct-2014 [facility] 17:08 to 17:09 Medication Entry - Gout (274.9 | M10.9) On 12-Oct-2014 [facility] 16:17 to 16:22 Lab entry only - Encounter for long-term (current) use of anticoagulants ( V58.61 | Z79.01) On 21-Sep-2014 [facility] 15:31 to 15:33 Radiology Visit - Carotid stenosis (433.10 | I65.29) On 14-Sep-2014 [facility] 09:33 to 09:36 Lab entry only - Encounter for long-term (current) use of anticoagulants ( V58.61 | Z79.01) On 24-Aug-2014 [facility] 16:31 to 16:34 Office Visit - Health education (V65.40 | Z71.9), Prevnar (PCV13)FOR MEDICARE USE ONLY Pneumovax injection (V03.82) 78680, Encounter for long-term ( current) use of [...] lifeline screening. He mentions the "discoloration" of ankles.[facility] Historical Summary On 11-Aug-2014 [facility] 16:16 to 16:19 Lab entry only - Fibrillation, atrial (427.31), Encounter for long-term ( current) use of anticoagulants (V58.61 | Z79.01) On 06-Aug-2014 [facility] 16:41 to 16:43 Medication Entry - Benign essential hypertension (401.1 | I10) On 21-Jun-2014 [facility] 11:12 to 11:14 Lab entry only - Encounter for long-term (current) use of anticoagulants ( V58.61 | Z79.01) On 03-Jun-2014 [facility] 16:13 to 16:15 Lab entry only - Encounter for long-term (current) use of anticoagulants ( V58.61 | Z79.01) On [facility] 13:22 to 13:23 Lab entry only - Elevated PSA (790.93), Encounter for long-term (current) use of anticoagulants (V58.61 | Z79.01) On [facility] 14:27 to 14:28 Office Visit - Foot [...] thing in the morning and on stairs. [facility] Historical Summary On 28-Dec-2013 [facility] 12:26 to 12:29 Medication Entry - Encounter for long-term (current) use of anticoagulants ( V58.61 | Z79.01), Diabetes mellitus (250.00 | E11.9), Fibrillation, atrial ( 427.31) On 03-Nov-2013 [facility] 09:01 to 11:53 Medication Entry - Fibrillation, atrial (427.31), Diabetes mellitus (250.00 | E11.9) On 30-Oct-2013 [facility] 15:55 to 16:00 Lab entry only - Encounter for long-term (current) use of anticoagulants ( V58.61 | Z79.01) On 27-Oct-2013 [facility] 17:57 to 17:59 Office Visit - Need [...] after being in the hospital at [facility] on 10/16/13 & discharged on 10/17/13 dx jasmeet diaz, inr was done prior to visit.) . Note for "Transition into care": He passed a kidney stone a week ago.[facility] Historical Summary On 23-Oct-2013 [facility] 14:42 to 14:45 Lab entry only - Encounter for long-term (current) use of anticoagulants ( V58.61 | Z79.01) On 20-Oct-2013 [facility] 16:31 to 16:33 Lab entry only - Encounter for long-term (current) use of anticoagulants ( V58.61 | Z79.01) On 16-Sep-2013 [facility] 10:14 to 10:15 Lab entry only - Elevated PSA (790.93) On 15-Sep-2013 [facility] 11:11 to 11:12 Lab entry only - Encounter for long-term (current) use of anticoagulants ( V58.61 | Z79.01) On 07-Aug-2013 [facility] 14:32 to 14:33 Lab entry only - Benign essential hypertension (401.1 | I10), Diabetes mellitus (250.00 | E11.9) On 07-Aug-2013 [facility] 11:18 to 11:19 Lab entry only - Encounter for long-term (current) use of anticoagulants ( V58.61 | Z79.01) On 01-May-2013 [facility] 10:33 to 10:38 Office Visit - Diabetes [...] He did miss some meds while he traveled.[facility] Historical Summary On 29-Apr-2013 [facility] 11:46 to 11:49 Lab entry only - Encounter for long-term (current) use of anticoagulants ( V58.61 | Z79.01) On [facility] 16:39 to 16:42 Lab entry only - Encounter for long-term (current) use of anticoagulants ( V58.61 | Z79.01) On [facility] 19:40 to 19:42 Lab entry only - Elevated PSA (790.93) On [facility] 12:03 to 12:07 Office Visit - Laryngotracheobronchitis [...] for "Cough": He has not had an antibiotic.[facility] Lab entry only - Encounter for long-term (current) use of anticoagulants ( V58.61 | Z79.01) On 16-Dec-2012 [facility] 18:21 to 18:23 Lab entry only - Encounter for long-term (current) use of anticoagulants ( V58.61 | Z79.01) On 27-Nov-2012 [facility] 16:52 to 16:53 Lab entry only - Encounter for long-term (current) use of anticoagulants ( V58.61) On 26-Nov-2012 [facility] 15:04 to 15:05 Office Visit - Encounter [...] first thing in the morning and on stairs.[facility] Historical Summary On 29-Oct-2012 [facility] 16:15 to 16:17 Lab entry only - Encounter for long-term (current) use of anticoagulants ( V58.61) On 15-Oct-2012 [facility] 09:51 to 09:57 Lab entry only - Encounter for long-term (current) use of anticoagulants ( V58.61), Elevated PSA (790.93) On 14-Oct-2012 [facility] 10:25 to 10:26 Lab entry only - Encounter for long-term (current) use of anticoagulants ( V58.61) On 12-Sep-2012 [facility] 13:44 to 13:45 Medication Entry - Edema (782.3), Fibrillation, atrial (427.31) On 20-Aug-2012 [facility] 11:10 to 11:12 Medication Entry - Fibrillation, atrial (427.31), Edema (782.3) On 19-Aug-2012 [facility] 17:29 to 18:11 Medication Entry - Encounter for long-term (current) use of anticoagulants ( V58.61), Fibrillation, atrial (427.31), Diabetes mellitus (250.00) On 2011 [facility] 17:44 to 17:53 Office Visit - 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), Inflamed seborrheic keratosis (702.11), Hyperglycemia (790.29), Encounter for long-term (current) use of anticoagulants (V58.61), Fibrillation, atrial (427.31) On 01-Aug-2012 Encounter Reason: Follow up for chronic condition - The patient feels well with minor complaints (here today for a 3 month follow up with Dr. Romero ) .[facility] 09:34 to 10:39 Medication Entry - Encounter for long-term (current) use of anticoagulants ( V58.61) On 31-Jul-2012 [facility] 18:21 to 18:22 Historical Summary On 31-Jul-2012 [facility] 11:40 to 11:42 Lab entry only - Encounter for long-term (current) use of anticoagulants ( V58.61) On 23-Jun-2012 [facility] 18:47 to 18:52 Lab entry only - Elevated PSA (790.93), Encounter for long-term (current) use of anticoagulants (V58.61) On 23-Jun-2012 [facility] 15:48 to 15:53 Office Visit - Adjustment disorder with depressed mood (309.0), Encounter for long-term (current) use of anticoagulants (V58.61), Elevated PSA (790.93) On Encounter Reason: Follow up for chronic condition - The patient feels well with minor complaints (here for a 6 week follow up visit do to a new medication but did not start the medication).[facility] 11:19 to 13: 39 Historical Summary On 30-Apr-2012 [facility] 11:50 to 11:52 Lab entry only - Encounter for long-term (current) use of anticoagulants ( V58.61) On 28-Apr-2012 [facility] 17:23 to 17:26 Lab entry only - Elevated PSA (790.93), Encounter for long-term (current) use of anticoagulants (V58.61) On 28-Apr-2012 [facility] 14:19 to 14:22 Office Visit - Hyperglycemia [...] , had lab done prior to appt today).[facility] Lab entry only - Edema (782.3), Hyperglycemia (790.29), Encounter for long- term (current) use of anticoagulants (V58.61) On [facility] 11:06 to 11:14 Lab entry only - Elevated PSA (790.93), Fibrillation, atrial (427.31), Edema ( 782.3) On [facility] 09:02 to 09:05 Lab entry only - Encounter for long-term (current) use of anticoagulants ( V58.61) On [facility] 16:44 to 16:45 Medication Entry On 26-Oct-2011 [facility] 13:30 to 13:32 Lab entry only - Elevated PSA (790.93) On 23-Oct-2011 [facility] 11:01 to 11:04 Lab entry only - Encounter for long-term (current) use of anticoagulants ( V58.61), Low testosterone (257.2) On 17-Oct-2011 [facility] 10:15 to 10:17 Medication Entry - Fibrillation, atrial (427.31) On 04-Oct-2011 [facility] 09:26 to 09:38 Medication Entry - Fibrillation, atrial (427.31), Edema (782.3), Encounter for long-term (current) use of anticoagulants (V58.61), Benign prostatic hypertrophy without lower urinary tract symptoms (LUTS) (600.00) On 02-Oct-2011 [facility] 18:56 to 19:02 Medication Entry - Encounter for long-term (current) use of anticoagulants ( V58.61), Fibrillation, atrial (427.31), Edema (782.3) On 26-Sep-2011 [facility] 11:06 to 11:11 Medication Entry - Fibrillation, atrial (427.31), Encounter for long-term ( current) use of anticoagulants (V58.61) On 24-Sep-2011 [facility] 10:41 to 10:49 Lab entry only - Low testosterone (257.2) On 10-Aug-2011 [facility] 13:03 to 13:05 Lab entry only - Hyperglycemia (790.29), Encounter for long-term (current) use of anticoagulants (V58.61), Fibrillation, atrial (427.31) On 08-Aug-2011 [facility] 13:27 to 13:29 Office Visit - Fibrillation, [...] he 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." [facility] Historical Summary On 06-Aug-2011 [facility] 12:22 to 12:24 Medication Entry - Fibrillation, atrial (427.31) On 05-Jun-2011 [facility] 08:54 to 08:59 Lab entry only - Encounter for long-term (current) use of anticoagulants ( V58.61) On 15-May-2011 [facility] 18:48 to 18:50 Office Visit - Edema [...] up is diabetes, hypertension, cardiovascular disorder and other.[facility] Medication Entry - Benign prostatic hypertrophy without lower urinary tract symptoms (LUTS) (600.00) On 19-Apr-2011 [facility] 08:49 to 08:51 Lab entry only - Benign prostatic hypertrophy without lower urinary tract symptoms (LUTS) (600.00) On 10-Apr-2011 [facility] 15:15 to 15:19 Office Visit - Elevated [...] seeing dr. boswell the middle of ). [facility] Historical Summary On [facility] 16:05 to 16:18 Lab entry only - Encounter for long-term (current) use of anticoagulants ( V58.61) On [facility] 17:34 to 17:36 Lab entry only - Encounter for long-term (current) use of anticoagulants ( V58.61), Elevated PSA (790.93) On [facility] 09:42 to 09:43 Lab entry only - Encounter for long-term (current) use of anticoagulants ( V58.61) On 24-Nov-2010 [facility] 08:55 to 08:57 Lab entry only - Encounter for long-term (current) use of anticoagulants ( V58.61) On 20-Oct-2010 [facility] 14:42 to 14:46 Historical Summary - Encounter for long-term (current) use of anticoagulants ( V58.61) On 13-Sep-2010 [facility] 10:53 to 10:59 Historical Summary 12-Sep-2010 to 13-Sep-2010 [facility] Lab entry only - Encounter for long-term (current) use of anticoagulants ( V58.61) On 14-Aug-2010 [facility] 17:44 to 17:49 Historical Summary - Elevated PSA (790.93) 09-Aug-2010 to 15-Aug-2010 [facility] Lab entry only - Encounter for long-term (current) use of anticoagulants ( V58.61) 27-Jun-2010 to 28-Jun-2010 [facility] Lab entry only - Encounter for long-term (current) use of anticoagulants ( V58.61) On 26-Jun-2010 [facility] 16:21 to 22:23 Insurance Vijay Yuan; gwen guarantorMedicare [employer] [facility] [employer] Insurance[employer]
--- OUTSIDE RECORDS SUMMARY | 2017-10-22 17:55 | External Medical Summary | Continuity of Care Document ---
:1940 Author Organization [facility] Address [address] [place] [address] Phone Care Team Providers Name Role Phone [...] Comments:started on 10/17/13 after being dismissed from [facility] for kidney stone by gale [...] dx kidney stone from being discharged from [facility] testrone cream 10% apply 0.5ml daily [...] days Quantity: 6 {Tablet} Refills: 0 Ordered:02-Jan-2013 Jmaes Romero MD Start 02-Jan-2013 End 07-Jan-2013 Inactive Allergies and Adverse Reactions Name Dates Details No Known Allergies (Allergy) Onset: Status: Active No Known Drug Allergies (Allergy) Onset: Status: Active Past Medical History No Significant Medical History. Procedures Procedure Dates Details How to access health information Completed:27-Jul-2015 online Skin Conditions Completed:27-Jul-2015 Follow up in 2 weeks Ordered:27-Jul-2015 HIGH DOSE QUADRIVALENT INFLUENZA Ordered:25-Jul-2015 VACCINE (55048) ADMINISTRATION OF INFLUENZA VIRUS Ordered:25-Jul-2015 VACCINE (G0008) Follow up in 3 months Ordered:25-Jul-2015 Follow up in 4 months Ordered: X-RAY EXAM OF KNEE, 1 OR 2 VIEWS Completed: Comments: right (00492) X-RAY EXAM OF BOTH KNEES, Completed: STANDING (47055) How to access health information Completed: online Follow up - Keep appt as scheduled Ordered:28-Oct-2014 CAROTID BILATERAL US ([id number]) Completed:14-Sep-2014 Comments: Verbal order from Dr. James Romero Follow up in 6 months Ordered:12-Aug-2014 PREVNAR 13 VALENT PNEUMOCOCCAL Completed:12-Aug-2014 VACCINE ([id number]) ADMINISTRATION OF PNEUMOCOCCAL Ordered:12-Aug-2014 CONJUGATE VACCINE (G0009) How to access health information Completed:12-Aug-2014 online Follow up in 6 months Ordered: Follow up in 2 months Ordered:26-Oct-2013 ADMIN INFLUENZA VIRUS VAC: FLU VACC Completed:26-Oct-2013 PRSV FREE INC ANTIG (22369) ADMINISTRATION OF INFLUENZA VIRUS Ordered:26-Oct-2013 VACCINE (G0008) Follow up in 6 months Ordered:30-Apr-2013 Follow up - Keep appt as scheduled Ordered:02-Jan-2013 Follow up in 6 months Ordered:30-Oct-2012 Follow up in 3 months Ordered:01-Aug-2012 Follow up in 3 months Ordered:01-May-2012 Follow up in 6 weeks Ordered: ADMINISTRATION OF INFLUENZA VIRUS Ordered:14-May-2011 VACCINE (G0008) FLU VACC PRSV FREE INC ANTIG Completed:14-May-2011 ([id number]) Follow up in 2 months Ordered:14-May-2011 Follow up in 2 months Ordered: Annual Eye Exam Completed:22-Nov-2008 Colonoscopy, Screening Completed: Colonoscopy, Screening Completed:06-Oct-2014 Flu Vaccine Completed:26-Oct-2013 Flu Vaccine Completed:06-Jun-2012 Comments: [facility] Flu Vaccine Completed:14-May-2011 Comments: high [...] Site: Deltoid (Left); high dose Lot #: [id number] Influenza, preserv. free, enhanced immunogncty, IM Administered on:2013 Comments: Site: Deltoid (Left) Lot #: [id number] Pneumococcal conjugate vaccine, 13 valent, IM Administered on:12-Aug-2014 Comments: Site: Deltoid (Left) Lot #: [id number] Social History Name Dates Details Tobacco use: [...] Comments: The left neck Final 10:36 SINGLE (17415) lesion was removed and also the left [...] not sent to pathology. 10:35 PUNCH BIOPSY (55889) Comments: After Final FIRST BIOPSY cleansing the [...] have a artifical heart valve? No 15:06 ([facility]) (22972) 9. Saturday Dosage 7.5 mg (Normal) 8. [...] order include: Draw Charge[i], Protime & INR (15094) Draw Drawn (Normal) [facility] [place] (55865) Comments: Items in this order include: Basic [...] include: A COPY TO , PSA ANTIGEN) (39304) PSA 6.55 ng/mL (Abnormal) Range: 0.00-4.00 09:[address] Boswell Comments: A copy of this report will be faxed to: Bettie Boswell in this order include: A COPY TO [eliana, PSA Ordering Doctor . (Normal) 09:15 PT (PROTHROMBIN TIME) Comments: Items in this order include: Draw Charge[i], Protime & INRDoes patient have a artifical heart valve? No ([facility]) (09293) 8. Saturday Dosage 7.5 mg (Normal) 9. [...] order include: Draw Charge[i], Protime & INR (02363) Draw Drawn (Normal) -Dec-2014 PT (PROTHROMBIN TIME) Comments: Items in this order include: Draw Charge[i], Protime & INRDoes patient have a artifical heart valve? No 09:28 ([facility]) (00983) 9. Saturday Dosage 5.0 mg (Normal) 7. [...] order include: Draw Charge[i], Protime & INR (85241) Draw Drawn (Normal) 28-Oct-2014 PT (PROTHROMBIN TIME) Comments: Items in this order include: Draw Charge[i], Protime & INRDoes patient have a artifical heart valve? No 10:48 ([facility]) (93927) 9. Saturday Dosage 7.5 mg (Normal) 8. [...] order include: Draw Charge[i], Protime & INR (64578) Draw Drawn (Normal) 29-Nov-2014 PT (PROTHROMBIN TIME) Comments: Items in this order include: Draw Charge[i], Protime & INRDoes patient have a artifical heart valve? No 10:28 ([facility]) (60737) 9. day Dosage 5.0 mg (Normal) 8. [...] order include: Draw Charge[i], Protime & INR (84334) Draw Drawn (Normal) 21-Sep-2014 PT (PROTHROMBIN TIME) Comments: Items in this order include: Draw Charge[i], Protime & INRDolynn patient have a artifical heart valve? No 10:08 ([facility]) (41195) 9. Saturday Dosage 5.0 mg (Normal) 7. [...] order include: Draw Charge[i], Protime & INR (16759) Draw Drawn (Normal) 24-Aug-2014 Routine Venipuncture Comments: Items in this order include: Protime & INR, Draw Charge[i] 09:59 (16554) Draw Drawn (Normal) 09:59 PT (PROTHROMBIN TIME) Comments: Items in this order include: Protime & INR, Draw Charge[i]INR value > 3.0 given to Estella by Beny Buckley patient have a artifical heart valve? No ([facility]) (03834) 9. Saturday Dosage 7.5 mg (Normal) 7. [...] Panel, Hemoglobin A1C, Urine Microalbumin, CBC ONE! (16961) manual diff Not Indicated (Normal) mpv 9.60 [...] Metabolic Panel, Hemoglobin A1C, Urine Microalbumin, CBC (99853) U A:C RATIO <30 mg/g Normal Range: <30 mg/g Normal (Normal) U CREAT 200 mg/dL (Normal) Range: 10-300 U ALB 80 mg/L (Abnormal) Range: 10 mg/L 09:59 HEMOGLOBIN GLYCLATED Comments: Items in this order include: Digoxin , PSA, Basic Metabolic Panel, Hemoglobin A1C, Urine Microalbumin, CBC (HGB A1C) (01009) A1C 5.9 % (Normal) Range: 4.6-6.2 Comments: Increased risk of diabetes. 09:59 [facility] (94805) Comments: Items in this order include: Digoxin, [...] Panel, Hemoglobin A1C, Urine Microalbumin, CBC ANTIGEN) (85454) PSA 7.11 ng/mL (Abnormal) Range: 0.00-4.00 09:59 DIGOXIN (99445) Comments: Items in this order include: Digoxin, PSA , Basic Metabolic Panel, Hemoglobin A1C, Urine Microalbumin, CBCTime of Last Dose? 08/23/2014 8:00 AMDosage? 0.25 DIG 0.36 ng/mL (Abnormal) Range: 0.90-2.00 05-Aug-2014 PT (PROTHROMBIN TIME) Comments: Items in this order include: Draw Charge[i], Protime & INRDoes patient have a artifical heart valve? No 10:48 ([facility] [place] [place]) (90433) 8. Saturday Dosage 7.5 mg (Normal) 9. [...] order include: Draw Charge[i], Protime & INR (99336) Draw Drawn (Normal) 03-Jun-2014 PT (PROTHROMBIN TIME) Comments: Items in this order include: Draw Charge[i], Protime & INRDoes patient have a artifical heart valve? No 13:56 ([facility]) (15034) 9. Saturday Dosage 7.5 mg (Normal) 8. [...] order include: Draw Charge[i], Protime & INR (69938) Draw Drawn (Normal) PT (PROTHROMBIN TIME) Comments: Items in this order include: Protime & INRDoes patient have a artifical heart valve? No 14:25 ([employer]) (15263) 9. Saturday Dosage 5.0 mg (Normal) 8. [...] this order include: Draw Charge[i], PSA ANTIGEN) (63328) PSA 6.15 ng/mL (Abnormal) Range: 0.00-4.00 14:25 Routine Venipuncture Comments: A copy of this report will be faxed to: Bettie Boswell in this order include: Draw Charge[i], PSA ([id number]) Draw Drawn (Normal) HEMOGLOBIN GLYCLATED Comments: Items in this order include: Hemoglobin A1C, Draw Charge[i], Comprehensive Metabolic Panel, Uric Acid 15:06 (HGB A1C) (93787) A1C 5.7 % (Normal) Range: 4.6-6.2 15:06 CMP (76255) Comments: Items in this order include: Hemoglobin [...] (Normal) Range: 135-145 15:06 URIC ACID BLOOD (04533) Comments: Items in this order include: Hemoglobin A1C, Draw Charge[i], Comprehensive Metabolic Panel, Uric Acid Uric Acid 8.0 mg/dL (Abnormal) Range: 3.6-7.7 15:06 Routine Venipuncture Comments: Items in this order include: Hemoglobin A1C, Draw Charge[i], Comprehensive Metabolic Panel, Uric Acid (39414) Draw Drawn (Normal) PT (PROTHROMBIN TIME) Comments: Items in this order include: Draw Charge[i], Protime & INRDoes patient have a artifical heart valve? No 14:27 ([facility] [place]) (95568) 8. Saturday Dosage 5.0 mg (Normal) 9. [...] order include: Draw Charge[i], Protime & INR (76980) Draw Drawn (Normal) 26-Oct-2013 Draw Charge[i] Comments: Items in this order include: Basic Metabolic Panel, Draw Charge[i] 17:08 Draw Drawn (Normal) 17:05 [facility] (39310) Comments: Items in this order include: Basic [...] have a artifical heart valve? No ([facility]) (09134) 9. Saturday Dosage 5.0 mg (Normal) 7. [...] order include: Draw Charge[i], Protime & INR (20866) Draw Drawn (Normal) 15-Sep-2013 PSA (PROSTATE SPECIFIC Comments: A copy of this report will be faxed to: Bettie Boswell in this order include: A COPY TO [kyung] PSAPSA allowed more than once a year due to being a Diagonistic PSA not a screening PSA 11:05 ANTIGEN) (87013) PSA 5.40 ng/mL (Abnormal) Range: 0.00-4.00 11:05 [...] this order include: Comprehensive Metabolic Panel, Hemoglobin H0RUrco Hgb A1C was ran 99 Days ago. Check by MARGARITA 10:38 (HGB A1C) (72409) A1C 5.9 % (Normal) Range: 4.6-6.2 Comments: Increased risk of diabetes. 10:38 [facility] (36478) Comments: Items in this order include: Comprehensive Metabolic Panel, Hemoglobin [id number] Hgb A1C was ran 99 Days ago. [...] have a artifical heart valve? No ([facility]) (65138) 9. Saturday Dosage 5.0 (cycle of 5,5,7.5 [...] order include: Draw Charge[i], Protime & INR (37739) Draw Drawn (Normal) 10:38 DIGOXIN (51506) Comments: Items in this order include: DigoxinTime of Last Dose? 08/06/2013 8:30 AMDosage? 0.25 mg daily DIG 0.48 ng/mL (Abnormal) Range: 0.90-2.00 30-Apr-2013 HEMOGLOBIN GLYCLATED Comments: Items in this order include: Comprehensive Metabolic Panel, CBC, Hemoglobin [id number] Hgb A1C was ran 225 Days ago. Check by ms 11:58 (HGB A1C) (72815) A1C 6.1 % (Normal) Range: 4.6-6.2 11:58 CBC MALE- ORDER THIS Comments: Items in this order include: Comprehensive Metabolic Panel, CBC, Hemoglobin S6GLdwp Hgb A1C was ran 225 Days ago. Check by ms ONE! (13144) manual diff Not Indicated (Normal) mpv 4.88 [...] 6.15 10*3/uL (Normal) Range: 4.50-10.50 11:58 CMP (94344) Comments: Items in this order include: Comprehensive Metabolic Panel, CBC, Hemoglobin A6ODwyp Hgb A1C was ran 225 Days ago. [...] have a artifical heart valve? No ([facility]) (72531) 4. Saturday Dosage Repeat mg (Normal) 3. Saturday Dosage 7.5 mg (Normal) 2. Saturday Dosage 5.0 mg (Normal) 1. Saturday Dosage 5.0 mg (Normal) INR 2.60 (Normal) PT 26.8 s (Abnormal) Range: 10.4-12.4 PT (PROTHROMBIN TIME) Comments: Items in this order include: Draw Charge[i], Protime & INRDoes patient have a artifical heart valve? No 15:12 ([facility]) (51970) 5. Dosage Repeat mg (Normal) 4. Saturday Dosage 5.0 mg (Normal) 3. Saturday Dosage 5.0 mg (Normal) 2. Saturday Dosage 7.5 mg (Normal) INR 2.31 (Normal) PT 24.0 s (Abnormal) Range: 10.4-12.4 15:12 Routine Venipuncture Comments: Items in this order include: Draw Charge[i], Protime & INR (20933) Draw Drawn (Normal) PSA (PROSTATE SPECIFIC Comments: A copy of this report will be faxed to: Bettie Boswell in this order include: PSA, Draw Charge[i]PSA allowed more than once a year due to being a Diagonistic PSA not a screening PSA 10:00 ANTIGEN) (89595) PSA 5.60 ng/mL (Abnormal) Range: 0.00-4.00 10:00 [...] have a artifical heart valve? No ([facility] [place]) (96039) 3. Saturday Dosage Repeat mg (Normal) 2. Saturday Dosage 7.5 mg (Normal) 1. Saturday Dosage 5.0 mg (Normal) INR 2.64 (Normal) PT 27.2 s (Abnormal) Range: 10.4-12.4 10:09 Routine Venipuncture Comments: Items in this order include: Draw Charge[i], Protime & INR (44025) Draw Drawn (Normal) 16-Dec-2012 PT (PROTHROMBIN TIME) Comments: Items in this order include: Draw Charge[i], Protime & INRDoes patient have a artifical heart valve? No 10:46 ([facility]) (77038) 4. Saturday Dosage Repeat mg (Normal) 3. Saturday Dosage 5.0 mg (Normal) 2. Saturday Dosage 7.5 mg (Normal) INR 2.13 (Normal) PT 22.2 s (Abnormal) Range: 10.4-12.4 10:46 Routine Venipuncture Comments: Items in this order include: Draw Charge[i], Protime & INR (29344) Draw Drawn (Normal) 26-Nov-2012 Routine Venipuncture Comments: Items in this order include: Protime & INR, Draw Charge[i] 15:05 (63511) Draw Drawn (Normal) 15:05 PT (PROTHROMBIN TIME) Comments: Items in this order include: Protime & INR, Draw Charge[i]Does patient have a artifical heart valve? No ([facility]) (03127) 4. Saturday Dosage 5.0 Repeat mg (Normal) 3. Saturday Dosage 5.0 mg (Normal) 2. Saturday Dosage 7.5 mg (Normal) INR 1.34 (Normal) PT 14.4 s (Abnormal) Range: 10.4-12.4 30-Oct-2012 PT (PROTHROMBIN TIME) Comments: Items in this order include: Draw Charge[i], Protime & INRINR value > 3.0 given to BW by Froy Chávez patient have a artifical heart valve? No 10:38 ([facility] [place] [place]) (89575) 7. Saturday Dosage 7.5 mg (Normal) 6. [...] order include: Draw Charge[i], Protime & INR (95960) Draw Drawn (Normal) 11:33 BMP Comments: Items [...] Dose? 10/29/2012 8:00 PMDosage? 0.25 mg Daily (92404) DIG 1.64 ng/mL (Normal) Range: 0.90-2.00 14-Oct-2012 PSA (PROSTATE SPECIFIC Comments: A copy of this report will be faxed to: Bettie Boswell in this order include: Draw Charge[i], Protime & INR, PSAPSA allowed more than once a year due to being a Diagonistic PSA not a screening PSA 10:25 ANTIGEN) (31236) PSA 8.11 ng/mL (Abnormal) Range: 0.00-4.00 10:25 PT (PROTHROMBIN TIME) Comments: PSA allowed more than once a year due to being a Diagonistic PSA not a screening PSACoumadin dosage=5,5,5,5,7.5 repeatDoes patient have a artifical heart valve? No ([facility]) (05948) 7. Saturday Dosage 7.5 mg (Normal) 6. [...] a Diagonistic PSA not a screening PSA (56845) Draw Drawn (Normal) 12-Sep-2012 PT (PROTHROMBIN TIME) Comments: Items in this order include: Draw Charge[i], Protime & INRDoes patient have a artifical heart valve? No 09:16 ([facility]) (66999) 6. Saturday Dosage Repeat mg (Normal) 5. Dosage 7.5 mg (Normal) 4. Saturday Dosage 5.0 mg (Normal) 3. Saturday Dosage 5.0 mg (Normal) 2. Saturday Dosage 5.0 mg (Normal) 1. Saturday Dosage 5.0 mg (Normal) INR 2.48 (Normal) PT 25.7 s (Abnormal) Range: 10.4-12.4 09:16 Routine Venipuncture Comments: Items in this order include: Draw Charge[i], Protime & INR (01464) Draw Drawn (Normal) 18-Aug-2012 PT (PROTHROMBIN TIME) Comments: Items in this order include: Protime & INRDolynn patient have a artifical heart valve? No 11:44 ([facility] [place]) (98593) 7. Saturday Dosage 5.0 mg (Normal) 6. [...] Days ago. Check by KB (HGB A1C) (87496) A1C 6.2 % (Normal) Range: 4.6-6.2 Comments: High risk of diabetes. 31-Jul-2012 PT (PROTHROMBIN TIME) Comments: Items in this order include: Draw Charge[i], Protime & INRINR value > 3.0 given to Estella by Beny Buckley patient have a artifical heart valve? No 13:32 ([facility]) (89864) 7. Saturday Dosage 5.0 mg (Normal) 6. [...] order include: Draw Charge[i], Protime & INR (26370) Draw Drawn (Normal) 23-Jun-2012 PSA (PROSTATE SPECIFIC Comments: A copy of this report will be faxed to: Bettie Boswell in this order include: Draw Charge[i], Protime & INR, PSAPSA allowed more than once a year due to being a Diagonistic PSA not a screening PSA 15:50 ANTIGEN) (83876) PSA 8.05 ng/mL (Abnormal) Range: 0.00-4.00 15:50 PT (PROTHROMBIN TIME) Comments: A copy of this report will be faxed to: Bettie Boswell in this order include: Draw Charge[i], Protime & INR , PSAPSA allowed more than once a year due to being a Diagonistic PSA not a screening ([facility]) ([id number]) PSADoes patient have a artifical heart valve? [...] a Diagonistic PSA not a screening PSA (40821) Draw Drawn (Normal) 13-May-2012 Draw Charge[i] Comments: [...] results to dr. hema boswell 14:28 ANTIGEN) (84330) PSA 16.45 ng/mL (Abnormal) Range: 0.00-4.00 14:28 PT (PROTHROMBIN TIME) Comments: Coumadin Dosage=5,5,5,7.5 Repeat. Took 7.5 on 04-27-12. ([facility] [place]) (99610) 5. Dosage 7.5 Repeat mg (Normal) 4. Saturday Dosage 5.0 mg (Normal) 3. Saturday Dosage 5.0 mg (Normal) 2. Saturday Dosage 5.0 mg (Normal) 1. Saturday Dosage 7.5 mg (Normal) INR 2.17 (Normal) PT 22.7 s (Abnormal) Range: 10.4-12.4 14:28 Routine Venipuncture (02312) Draw Drawn (Normal) 13-May-2012 PSA (PROSTATE SPECIFIC Comments: A copy of this report will be faxed to: Bettie Boswell in this order include: PSA, Draw Charge[i]PSA allowed more than once a year due to being a Diagonistic PSA not a screening PSA 09:20 ANTIGEN) (24520) PSA 11.30 ng/mL (Abnormal) Range: 0.00-4.00 TSH (THYROID Comments: Items in this order include: TSH 16:40 STIMULATING HORMONE) (27669) TSH 1.36 uIU/ml (Normal) Range: 0.34-5.60 14:50 PT (PROTHROMBIN TIME) Comments: Items in this order include: Draw Charge[i], Basic Metabolic Panel, Hemoglobin A1C, Protime & INRLast Hbg A1C was ran 218 Days ago. Check by DL ([facility]) (15954) 5. Dosage Repeat mg (Normal) 4. Saturday [...] ran 218 Days ago. Check (HGB A1C) (54681) by DLplease draw enough blood so if [...] ran 218 Days ago. Check by DL (69451) Draw Drawn (Normal) DIGOXIN, DRUG ASSAY Comments: Items in this order include: CBC, Comprehensive Metabolic Panel, CKI, Digoxin, Draw Charge[i] 09:08 (74141) DIG 0.38 ng/mL (Abnormal) Range: 0.90-2.00 09:08 CK Comments: Items in this order include: CBC, Comprehensive Metabolic Panel, CKI, Digoxin, Draw Charge[i] CKI 143 U/L (Normal) Range: 39-308 09:08 CMP (09439) Comments: Items in this order include: CBC, [...] Metabolic Panel, CKI, Digoxin, Draw Charge[i] ONE! (49432) manual diff Not Indicated (Normal) mpv 6.84 [...] order include: Protime & INR, Draw Charge[i] (04116) Draw Drawn (Normal) 16:45 PT (PROTHROMBIN TIME) Comments: Items in this order include: Protime & INR, Draw Charge[i]Coumadin doasage=5,5,7.5 Repeat ([facility]) (41488) 7. Saturday Dosage 5.0 mg (Normal) 6. [...] order include: Draw Charge[i], PSA 11:11 ANTIGEN) (42766) PSA 6.92 ng/mL (Abnormal) Range: 0.00-4.00 11:11 Routine Venipuncture Comments: A copy of this report will be faxed to: Bettie Boswell in this order include: Draw Charge[i], PSA ([id number]) Draw Drawn (Normal) 17-Oct-2011 Routine Venipuncture 10:18 (87850) Draw Drawn (Normal) 10:18 TESTOSTERONE, FREE, Comments: Items in this order include: Protime & INR, Draw Charge[i], TESTOSTERONE, FREE, BIOAVAILABLE, AND TOTAL, LC/MS/ MSTesting performed at: [facility] [place], [address] [address], [place], [address], Electronics Engineering Technician: Michael Chávez [facility] TOTAL, LC/MS/MS ALBUMIN,SERUM 4.4 [...] benefits counseling. 10:18 PT (PROTHROMBIN TIME) ([facility]) (05520) 7. Saturday Dosage 5.0 mg (Normal) 6. [...] Panel, Hemoglobin A1C, Draw Charge[i] (HGB A1C) (06293) A1C 6.1 % (Normal) Range: 4.6-6.2 13:29 [...] (Normal) Range: 135-145 13:29 DIGOXIN, DRUG ASSAY (77441) DIG 0.85 ng/mL (Abnormal) Range: 0.90-2.00 07-Aug-2011 TESTOSTERONE, FREE, Comments: Items in this order include: TESTOSTERONE, FREE, BIOAVAILABLE, AND TOTAL, LC/MS/MSTesting performed at: [facility], [address] [address], [place] , [address], [place] 12:53 WEAKLY BOUND AND TOTAL ratory Director: Michael Chávez MD.[facility] (74434) ALBUMIN,SERUM 4.4 g/dL (Normal) Range: 3.6-5.1 SEX [...] Draw Charge[i]no change in coumadin dose ([facility]) (83617) 7. Saturday Dosage 7.5 mg (Normal) 6. [...] Metabolic Panel, Protime & INR, Draw Charge[i] ([facility]) (14487) 7. Saturday Dosage 5.0 mg (Normal) 5. [...] Boswell in this order include: PSA ANTIGEN) (97674) PSA 5.95 ng/mL (Abnormal) Range: 0.00-4.00 CBC-MALE- ORDER THIS Comments: Items in this order include : Hemoglobin A1C, Comprehensive Metabolic Panel, CBC 11:56 ONE! (81357) manual diff Not Indicated (Normal) mpv 7.65 [...] 6.24 10*3/uL (Normal) Range: 4.50-10.50 11:56 CMP (41787) Comments: Items in this order include: Hemoglobin [...] this order include: Digoxin, Draw Charge[i] 15:17 (44427) DIG 1.18 ng/mL (Normal) Range: 0.90-2.00 HEMOGLOBIN GLYCLATED Comments: Items in this order include: Hemoglobin A1C, Comprehensive Metabolic Panel, CBC 11:56 (HGB A1C) (81738) A1C 6.6 % (Abnormal) Range: 4.6-6.2 Comments: Consistent with diabetes. 13:48 PT (PROTHROMBIN TIME) Comments: change to coumadin 5mg x 2 day then 7.5mg x1 repeat the cycle; Items in this order include: Protime & INR, Draw Charge[i]cyclechange to coumadin 5mg x 2 day then 7.5mg x1 repeat the ([facility]) (52483) 6. Saturday Dosage 7.5 mg (Normal) 7. [...] & INR, PSA, Draw Charge[i] 09:43 ANTIGEN) (70269) PSA 5.84 ng/mL (Abnormal) Range: 0.00-4.00 09:43 PT (PROTHROMBIN TIME) Comments: no change in coumadin; no change in coumadin ([facility]) (97372) 7. day Dosage 7.5 mg (Normal) 6. Saturday Dosage 5.0 mg (Normal) 5. Dosage 7.5 mg (Normal) 4. Saturday Dosage 5.0 mg (Normal) 3. Saturday Dosage 5.0 mg (Normal) 1. Saturday Dosage 5.0 mg (Normal) 2. Saturday Dosage 7.5 mg (Normal) INR 3.45 (Normal) PT 32.9 s (Abnormal) Range: 10.4-12.4 23-Nov-2010 PT (PROTHROMBIN TIME) 10:03 ([facility]) (13518) 6. Saturday Dosage 7.5 mg (Normal) 7. Saturday Dosage 5 mg (Normal) 1. Saturday Dosage 5 mg (Normal) 2. Saturday Dosage 7.5 mg (Normal) 3. Saturday Dosage 5 mg (Normal) 4. Saturday Dosage 7.5 mg (Normal) 5. Dosage 5 mg (Normal) INR 2.16 (Normal) PT 21.0 s (Abnormal) Range: 10.4-12.4 19-Oct-2010 PT (PROTHROMBIN TIME) 15:16 ([facility]) (17058) 6. Saturday Dosage 5 mg (Normal) 7. Saturday Dosage 7.5 mg (Normal) 3. Saturday Dosage 7.5 mg (Normal) 4. Saturday Dosage 5 mg (Normal) 5. Dosage 7.5 mg (Normal) 1. Saturday Dosage 7.5 mg (Normal) 2. Saturday Dosage 5 mg (Normal) INR 2.13 (Normal) PT 20.7 s (Abnormal) Range: 10.4-12.4 12-Sep-2010 PT (PROTHROMBIN TIME) 11:03 ([facility]) (54839) INR 2.57 (Normal) PT (PROTHROMBIN TIME) 24.8 s (Abnormal) Range: 11.5-13.5 22-Aug-2010 PT (PROTHROMBIN TIME) 13:41 ([facility]) (07239) 09-Aug-2010 PSA, MEDICARE (G0103) Comments: please fax to dr hema boswell 09:54 PSA (Medicare) 4.83 ng/mL (Abnormal) Range: 0 - 4 09:34 PT (PROTHROMBIN TIME) ([facility]) (24477) INR 2.68 (Normal) PT (PROTHROMBIN TIME) 25.8 s (Abnormal) Range: 11.5-13.5 27-Jun-2010 PT (PROTHROMBIN TIME) 08:38 ([facility]) (28950) 26-Jun-2010 PT (PROTHROMBIN TIME) 16:21 ([facility] [place]) ([id number]) INR 1.89 (Normal) PT (PROTHROMBIN TIME) 18.4 s (Abnormal) Range: 11.5-13.5 Treatment Plan PT (PROTHROMBIN TIME) ([facility] [place]) ([id number]); Ordered: 11/01/2015; Note: Verbal order from Dr. James RomeroLIPID PANEL (28760); Ordered: 11/01/2015; Note: Verbal order from Dr. James Pooel (PROTHROMBIN TIME) ([facility] [place]) (39495); Ordered: 10/03/2015CK; Ordered : 10/03/2015CMP (95671); Ordered: 10/03/2015; Note: Verbal order from Dr. James Flores Venipuncture (83982); Ordered: 08/10/2015; Note: Verbal order from Dr. James Poole (PROTHROMBIN TIME) ([facility] [place]) ([id number]); Ordered: 08/10/2015; Note: Verbal order from Dr. James RomeroURIC ACID BLOOD (02274); Ordered: 2014HEMOGLOBIN GLYCLATED (HGB A1C) (69787); Ordered: 08/10/2015CK (39995); Ordered: 08/10/2015CMP (39926); Ordered: 08/10/2015CBC MALE- ORDER THIS ONE! ( 77908); Ordered: 08/10/2015 Advance Directives Encounters Medication Entry [...] (PCV13)FOR MEDICARE USE ONLY Pneumovax injection (V03.82) 26086, Encounter for long-term ( current) use of [...] M.D. after being in the hospital at [facility] on 10/16/13 & discharged on [...] Yuan; gwen guarantorMedicare WPSReserve National LifeState Farm InsuranceCVS/Caremeigs
--- OUTSIDE RECORDS SUMMARY | 2017-10-22 17:56 | External Medical Summary | Referral Summary ---
:1940 Author Organization [facility] Address [address] [place] [address] [place] [id number] Care Team Providers Name Role Phone Blayne Blake Primary Care Physician Encounter VC Date(s): 01/04/16 - 01/04/16 [facility] [place] [phone] Discharge Diagnosis: Glucose intolerance (pre-diabetes) Discharge Diagnosis: HTN (hypertension) Discharge Diagnosis: Cyst, eyelid Discharge Diagnosis: Afib Discharge Diagnosis: Degenerative joint disease of knee Discharge Disposition: 01-Home or Self Care Attending Physician: Blayne Blake DO Admitting Physician: Blayne Blake DO Vital Signs Most recent to oldest [Reference Range]: 1 Temperature Tympanic [36.6-38.1 degC] 35.8 degC *LOW* (01/04/16 9:26 AM) Apical Heart Rate [60-100 bpm] 75 bpm (01/04/16 9:26 AM) Blood Pressure [90-140/60-90 mmHg] 100/62 mmHg (01/04/16 9:26 AM) SpO2 98 % (01/04/16 9:26 AM) Problem List No data available for [...] Refill(s) Start Date: 01/04/16 Status: Ordered Results No data available for this section Immunizations No data available for this section Procedures No data available for this section Social History Social History Type Response Smoking Status Never smoker Assessment and Plan Extracted from: Title: Office Visit Note Author: Blayne Blake DO Date: 01/04/16 Assessment/Plan Afib 1. Atrial fibrillation rate controlled. 2. Continue with the digoxin and Cardizem as previous. 3. Continue with Eliquis as previous. 4. Follow-up in a month for reevaluation. I recommended transfer of his previous medical records for review. If he has not seen fork operator for some time, then we plan on referring him for cardiac evaluation. Ordered: Office Visit Level 3 New 47100 Cyst, eyelid 1. If the cystic lesion on the right upper eyelid is bothersome then I recommended making an appointment for excision. Patient voiced understanding. Ordered: Office Visit Level 3 New 27910 Degenerative joint disease of knee 1. History and clinical findings are consistent with degenerative joint disease of both knees. 2. Recommended Tylenol 1000 mg twice a day. 3. Knee injection offered, patient declined. 4. Alternatively, we may consider sending him to medical specialist for evaluation and recommendations. Ordered: Office Visit Level 3 New [address]365 Glucose intolerance (pre-diabetes) 1. Continue with metformin as previous. 2. Follow-up in one month for reevaluation. Once we get copy of his previous medical records, if he has not had a hemoglobin A1c in the last 3-6 months, we plan on repeating this test. Ordered: Office Visit Level 3 New 61242 HTN (hypertension) 1. His blood pressure is on the lower end of normal. He is asymptomatic. Continue current regimen. If he becomes symptomatic with orthostatic hypotension then we may consider decreasing the Cardizem. Ordered: Office Visit Level 3 New [id number]
--- OUTSIDE RECORDS SUMMARY | 2017-10-22 17:56 | External Medical Summary | Continuity of Care Document ---
:1940 Author Organization [facility] Address [address] [place] [address] Phone Care Team Providers Name Role Phone James Romero MD Primary Care Provider James Romero MD Unavailable Nohelia Combs Unavailable Unavailable Judi Chávez Unavailable Unavailable Unavailable Unavailable Problems Name Dates [...] Prevnar (PCV13)FOR MEDICARE USE ONLY Pneumovax injection 72252 (V03.82) Status: Active Renal lithiasis (592.0, N20.0) [...] Comments:started on 10/17/13 after being dismissed from [facility] for kidney stone by gale CITALOPRAM HYDROBROMIDE, [...] dx kidney stone from being discharged from [facility] testrone cream 10% apply 0.5ml daily - [...] appt as scheduled Ordered:28-Oct-2014 CAROTID BILATERAL US (30571) Completed:14-Sep-2014 Comments: Verbal order from Dr. James Romero Follow up in 6 months Ordered:12-Aug-2014 PREVNAR 13 VALENT PNEUMOCOCCAL Completed:12-Aug-2014 VACCINE (73690) ADMINISTRATION OF PNEUMOCOCCAL Ordered:12-Aug-2014 CONJUGATE VACCINE (G0009) How to access health information Completed:12-Aug-2014 online Follow up in 6 months Ordered: Follow up in 2 months Ordered:26-Oct-2013 ADMIN INFLUENZA VIRUS VAC: FLU VACC Completed:26-Oct-2013 PRSV FREE INC ANTIG (16314) ADMINISTRATION OF INFLUENZA VIRUS Ordered:26-Oct-2013 VACCINE (G0008) Follow up in 6 months Ordered:30-Apr-2013 Follow up - Keep appt as scheduled Ordered:02-Jan-2013 Follow up in 6 months Ordered:30-Oct-2012 Follow up in 3 months Ordered:01-Aug-2012 Follow up in 3 months Ordered:01-May-2012 Follow up in 6 weeks Ordered: ADMINISTRATION OF INFLUENZA VIRUS Ordered:14-May-2011 VACCINE (G0008) FLU VACC PRSV FREE INC ANTIG Completed:14-May-2011 (53792) Follow up in 2 months Ordered:14-May-2011 Follow up in 2 months Ordered: Annual Eye Exam Completed:22-Nov-2008 Colonoscopy, Screening Completed: Colonoscopy, Screening Completed:06-Oct-2014 Flu Vaccine Completed:26-Oct-2013 Flu Vaccine Completed:06-Jun-2012 Comments: [facility] Flu Vaccine Completed:14-May-2011 Comments: high dose Pneumovax Completed:2008nar 13 Completed:12-Aug-2014 PSA Completed: Comments: (6.15) PSA Completed:24-Aug-2014 Comments: (7.11) PSA Completed:10-Apr-2011 Comments: (5.95) PSA Completed:28-Apr-2012 Comments: (16.45) PSA Completed:23-Jun-2012 Comments: (8.05) PSA Completed:14-Oct-2012 Comments: (8.11) PSA Completed: Comments: (5.60) PSA Completed:15-Sep-2013 Comments: (5.40) Immunization Name Dates Details Fluzone Administered on:14-May-2011 Comments: Site: Deltoid (Left); high dose Lot #: [id number] Influenza, preserv. free, enhanced immunogncty, IM Administered on:2013 Comments: Site: Deltoid (Left) Lot #: [id number] Pneumococcal conjugate vaccine, 13 valent, IM Administered on:12-Aug-2014 Comments: Site: Deltoid (Left) Lot #: [id number] Social History Name Dates Details Tobacco use: [...] Comments: The left neck Final 10:36 SINGLE (93050) lesion was removed and also the left [...] not sent to pathology. 10:35 PUNCH BIOPSY (41429) Comments: After Final FIRST BIOPSY cleansing the left forearm with Hibiclens solution x3, the area was anesthetized with 1 cc 1% lidocaine and a 2 mm punch was used and elevated with sterile scissors and sent to pathology. Silver nitrate stick was for cautery. PSA (PROSTATE SPECIFIC Comments: A copy of this report will be faxed to: Bettie Boswell in this order include: A COPY TO [kyung], PSA 09:25 ANTIGEN) (85978) PSA 6.55 ng/mL (Abnormal) Range: 0.00-4.00 09:25 [...] No ([facility]) (63855) 8. Saturday Dosage 7.5 mg (Normal) 9. [...] order include: Draw Charge[i], Protime & INR (18098) Draw Drawn (Normal) 14-Jan-2015 PT (PROTHROMBIN TIME) Comments: Items in this order include: Draw Charge[i], Protime & INRDoes patient have a artifical heart valve? No 09:28 ([facility]) (38781) 9. Saturday Dosage 5.0 mg (Normal) 7. [...] order include: Draw Charge[i], Protime & INR (04142) Draw Drawn (Normal) 28-Oct-2014 PT (PROTHROMBIN TIME) Comments: Items in this order include: Draw Charge[i], Protime & INRDoes patient have a artifical heart valve? No 10:48 ([facility]) (66507) 9. Saturday Dosage 7.5 mg (Normal) 8. [...] order include: Draw Charge[i], Protime & INR (85113) Draw Drawn (Normal) 29-Nov-2014 PT (PROTHROMBIN TIME) Comments: Items in this order include: Draw Charge[i], Protime & INRDoes patient have a artifical heart valve? No 10:28 ([facility]) (05407) 9. Saturday Dosage 5.0 mg (Normal) 8. [...] order include: Draw Charge[i], Protime & INR (00694) Draw Drawn (Normal) 21-Sep-2014 PT (PROTHROMBIN TIME) Comments: Items in this order include: Draw Charge[i], Protime & INRDolynn patient have a artifical heart valve? No 10:08 ([facility]) (38023) 9. Saturday Dosage 5.0 mg (Normal) 7. [...] order include: Draw Charge[i], Protime & INR (61594) Draw Drawn (Normal) 24-Aug-2014 Routine Venipuncture Comments: Items in this order include: Protime & INR, Draw Charge[i] 09:59 (99136) Draw Drawn (Normal) 09:59 PT (PROTHROMBIN TIME) Comments: Items in this order include: Protime & INR, Draw Charge[i]INR value > 3.0 given to Estella by Beny Buckley patient have a artifical heart valve? No ([facility]) (89625) 9. Saturday Dosage 7.5 mg (Normal) 7. [...] Panel, Hemoglobin A1C, Urine Microalbumin, CBC ONE! (93444) manual diff Not Indicated (Normal) mpv 9.60 [...] Metabolic Panel, Hemoglobin A1C, Urine Microalbumin, CBC (56045) U A:C RATIO <30 mg/g Normal Range: <30 mg/g Normal (Normal) U CREAT 200 mg/dL (Normal) Range: 10-300 U ALB 80 mg/L (Abnormal) Range: 10 mg/L 09:59 HEMOGLOBIN GLYCLATED Comments: Items in this order include: Digoxin , PSA, Basic Metabolic Panel, Hemoglobin A1C, Urine Microalbumin, CBC (HGB A1C) (88945) A1C 5.9 % (Normal) Range: 4.6-6.2 Comments: Increased risk of diabetes. 09:59 [facility] (42417) Comments: Items in this order include: Digoxin, [...] Panel, Hemoglobin A1C, Urine Microalbumin, CBC ANTIGEN) (63319) PSA 7.11 ng/mL (Abnormal) Range: 0.00-4.00 09:59 DIGOXIN (06691) Comments: Items in this order include: Digoxin, PSA , Basic Metabolic Panel, Hemoglobin A1C, Urine Microalbumin, CBCTime of Last Dose? 08/23/2014 8:00 AMDosage? 0.25 DIG 0.36 ng/mL (Abnormal) Range: 0.90-2.00 05-Aug-2014 PT (PROTHROMBIN TIME) Comments: Items in this order include: Draw Charge[i], Protime & INRDoes patient have a artifical heart valve? No 10:48 ([facility]) (13037) 8. Saturday Dosage 7.5 mg (Normal) 9. [...] order include: Draw Charge[i], Protime & INR (40415) Draw Drawn (Normal) 03-Jun-2014 PT (PROTHROMBIN TIME) Comments: Items in this order include: Draw Charge[i], Protime & INRDoes patient have a artifical heart valve? No 13:56 ([facility]) (81455) 9. Saturday Dosage 7.5 mg (Normal) 8. [...] order include: Draw Charge[i], Protime & INR (53266) Draw Drawn (Normal) PT (PROTHROMBIN TIME) Comments: Items in this order include: Protime & INRDoes patient have a artifical heart valve? No 14:25 ([facility]) (96333) 9. day Dosage 5.0 mg (Normal) 8. [...] this order include: Draw Charge[i], PSA ANTIGEN) (34321) PSA 6.15 ng/mL (Abnormal) Range: 0.00-4.00 14:25 Routine Venipuncture Comments: A copy of this report will be faxed to: Bettie Boswell in this order include: Draw Charge[i], PSA (87206) Draw Drawn (Normal) -January-2014 HEMOGLOBIN GLYCLATED Comments: Items in this order include: Hemoglobin A1C, Draw Charge[i], Comprehensive Metabolic Panel, Uric Acid 15:06 (HGB A1C) (11869) A1C 5.7 % (Normal) Range: 4.6-6.2 15:06 CMP (29486) Comments: Items in this order include: Hemoglobin [...] (Normal) Range: 135-145 15:06 URIC ACID BLOOD (93325) Comments: Items in this order include: Hemoglobin A1C, Draw Charge[i], Comprehensive Metabolic Panel, Uric Acid Uric Acid 8.0 mg/dL (Abnormal) Range: 3.6-7.7 15:06 Routine Venipuncture Comments: Items in this order include: Hemoglobin A1C, Draw Charge[i], Comprehensive Metabolic Panel, Uric Acid (73922) Draw Drawn (Normal) PT (PROTHROMBIN TIME) Comments: Items in this order include: Draw Charge[i], Protime & INRDoes patient have a artifical heart valve? No 14:27 ([facility]) (22967) 8. Saturday Dosage 5.0 mg (Normal) 9. [...] order include: Draw Charge[i], Protime & INR (16576) Draw Drawn (Normal) 26-Oct-2013 Draw Charge[i] Comments: Items in this order include: Basic Metabolic Panel, Draw Charge[i] 17:08 Draw Drawn (Normal) 17:05 [facility] (19678) Comments: Items in this order include: Basic [...] No ([facility]) (73679) 9. Saturday Dosage 5.0 mg (Normal) 7. [...] order include: Draw Charge[i], Protime & INR (48300) Draw Drawn (Normal) 15-Sep-2013 PSA (PROSTATE SPECIFIC Comments: A copy of this report will be faxed to: Bettie Boswell in this order include: A COPY TO [kyung] PSAPSA allowed more than once a year due to being a Diagonistic PSA not a screening PSA 11:05 ANTIGEN) (70907) PSA 5.40 ng/mL (Abnormal) Range: 0.00-4.00 11:05 [...] this order include: Comprehensive Metabolic Panel, Hemoglobin N4YUttu Hgb A1C was ran 99 Days ago. Check by MARGARITA 10:38 (HGB A1C) (01767) A1C 5.9 % (Normal) Range: 4.6-6.2 Comments: Increased risk of diabetes. 10:38 [facility] (50877) Comments: Items in this order include: Comprehensive Metabolic Panel, Hemoglobin R7CEvtr Hgb A1C was ran 99 Days ago. [...] No ([facility]) (39131) 9. Saturday Dosage 5.0 (cycle of 5,5,7.5 [...] order include: Draw Charge[i], Protime & INR (91327) Draw Drawn (Normal) 10:38 DIGOXIN (00094) Comments: Items in this order include: DigoxinTime of Last Dose? 08/06/2013 8:30 AMDosage? 0.25 mg daily DIG 0.48 ng/mL (Abnormal) Range: 0.90-2.00 30-Apr-2013 HEMOGLOBIN GLYCLATED Comments: Items in this order include: Comprehensive Metabolic Panel, CBC, Hemoglobin A4WKhrl Hgb A1C was ran 225 Days ago. Check by ms 11:58 (HGB A1C) (09460) A1C 6.1 % (Normal) Range: 4.6-6.2 11:58 CBC MALE- ORDER THIS Comments: Items in this order include: Comprehensive Metabolic Panel, CBC, Hemoglobin H7OQtoy Hgb A1C was ran 225 Days ago. Check by ms ONE! (23783) manual diff Not Indicated (Normal) mpv 4.88 [...] 6.15 10*3/uL (Normal) Range: 4.50-10.50 11:58 CMP (15724) Comments: Items in this order include: Comprehensive Metabolic Panel, CBC, Hemoglobin S5GEayg Hgb A1C was ran 225 Days ago. [...] No ([facility]) (86381) 4. Saturday Dosage Repeat mg (Normal) 3. Saturday Dosage 7.5 mg (Normal) 2. Saturday Dosage 5.0 mg (Normal) 1. Saturday Dosage 5.0 mg (Normal) INR 2.60 (Normal) PT 26.8 s (Abnormal) Range: 10.4-12.4 -March-2013 PT (PROTHROMBIN TIME) Comments: Items in this order include: Draw Charge[i], Protime & INRDoes patient have a artifical heart valve? No 15:12 ([facility]) (24574) 5. Dosage Repeat mg (Normal) 4. Saturday Dosage 5.0 mg (Normal) 3. Saturday Dosage 5.0 mg (Normal) 2. Saturday Dosage 7.5 mg (Normal) INR 2.31 (Normal) PT 24.0 s (Abnormal) Range: 10.4-12.4 15:12 Routine Venipuncture Comments: Items in this order include: Draw Charge[i], Protime & INR (82502) Draw Drawn (Normal) PSA (PROSTATE SPECIFIC Comments: A copy of this report will be faxed to: Bettie Boswell in this order include: PSA, Draw Charge[i]PSA allowed more than once a year due to being a Diagonistic PSA not a screening PSA 10:00 ANTIGEN) (73787) PSA 5.60 ng/mL (Abnormal) Range: 0.00-4.00 10:00 [...] patient have a artifical heart valve? No ([facility]) (20356) 3. Saturday Dosage Repeat mg (Normal) 2. Saturday Dosage 7.5 mg (Normal) 1. Saturday Dosage 5.0 mg (Normal) INR 2.64 (Normal) PT 27.2 s (Abnormal) Range: 10.4-12.4 10:09 Routine Venipuncture Comments: Items in this order include: Draw Charge[i], Protime & INR (45609) Draw Drawn (Normal) 16-Dec-2012 PT (PROTHROMBIN TIME) Comments: Items in this order include: Draw Charge[i], Protime & INRDoes patient have a artifical heart valve? No 10:46 ([facility]) (48389) 4. Saturday Dosage Repeat mg (Normal) 3. Saturday Dosage 5.0 mg (Normal) 2. Saturday Dosage 7.5 mg (Normal) INR 2.13 (Normal) PT 22.2 s (Abnormal) Range: 10.4-12.4 10:46 Routine Venipuncture Comments: Items in this order include: Draw Charge[i], Protime & INR (73462) Draw Drawn (Normal) 26-Nov-2012 Routine Venipuncture Comments: Items in this order include: Protime & INR, Draw Charge[i] 15:05 (85562) Draw Drawn (Normal) 15:05 PT (PROTHROMBIN TIME) Comments: Items in this order include: Protime & INR, Draw Charge[i]Does patient have a artifical heart valve? No ([facility]) (36981) 4. Saturday Dosage 5.0 Repeat mg (Normal) [...] 10:38 ([facility]) (03657) 7. Saturday Dosage 7.5 mg (Normal) 6. [...] order include: Draw Charge[i], Protime & INR (35827) Draw Drawn (Normal) 11:33 BMP Comments: Items [...] Dose? 10/29/2012 8:00 PMDosage? 0.25 mg Daily (81516) DIG 1.64 ng/mL (Normal) Range: 0.90-2.00 14-Oct-2012 PSA (PROSTATE SPECIFIC Comments: A copy of this report will be faxed to: Bettie Boswell in this order include: Draw Charge[i], Protime & INR, PSAPSA allowed more than once a year due to being a Diagonistic PSA not a screening PSA 10:25 ANTIGEN) (81271) PSA 8.11 ng/mL (Abnormal) Range: 0.00-4.00 10:25 PT (PROTHROMBIN TIME) Comments: PSA allowed more than once a year due to being a Diagonistic PSA not a screening PSACoumadin dosage=5,5,5,5,7.5 repeatDoes patient have a artifical heart valve? No ([facility]) (46682) 7. Saturday Dosage 7.5 mg (Normal) 6. [...] a Diagonistic PSA not a screening PSA (32304) Draw Drawn (Normal) 12-Sep-2012 PT (PROTHROMBIN TIME) Comments: Items in this order include: Draw Charge[i], Protime & INRDoes patient have a artifical heart valve? No 09:16 ([facility]) (10447) 6. Saturday Dosage Repeat mg (Normal) 5. Dosage 7.5 mg (Normal) 4. Saturday Dosage 5.0 mg (Normal) 3. Saturday Dosage 5.0 mg (Normal) 2. Saturday Dosage 5.0 mg (Normal) 1. Saturday Dosage 5.0 mg (Normal) INR 2.48 (Normal) PT 25.7 s (Abnormal) Range: 10.4-12.4 09:16 Routine Venipuncture Comments: Items in this order include: Draw Charge[i], Protime & INR (25556) Draw Drawn (Normal) 18-Aug-2012 PT (PROTHROMBIN TIME) Comments: Items in this order include: Protime & INRDolynn patient have a artifical heart valve? No 11:44 ([facility]) (35728) 7. Saturday Dosage 5.0 mg (Normal) 6. [...] Days ago. Check by KB (HGB A1C) (21473) A1C 6.2 % (Normal) Range: 4.6-6.2 Comments: High risk of diabetes. 31-Jul-2012 PT (PROTHROMBIN TIME) Comments: Items in this order include: Draw Charge[i], Protime & INRINR value > 3.0 given to Estella by Beny Buckley patient have a artifical heart valve? No 13:32 ([facility]) (53629) 7. day Dosage 5.0 mg (Normal) 6. [...] order include: Draw Charge[i], Protime & INR (43286) Draw Drawn (Normal) 23-Jun-2012 PSA (PROSTATE SPECIFIC Comments: A copy of this report will be faxed to: Bettie Boswell in this order include: Draw Charge[i], Protime & INR, PSAPSA allowed more than once a year due to being a Diagonistic PSA not a screening PSA 15:50 ANTIGEN) (92882) PSA 8.05 ng/mL (Abnormal) Range: 0.00-4.00 15:50 PT (PROTHROMBIN TIME) Comments: A copy of this report will be faxed to: Bettie Boswell in this order include: Draw Charge[i], Protime & INR , PSAPSA allowed more than once a year due to being a Diagonistic PSA not a screening ([facility]) (13793) PSADoes patient have a artifical heart valve? [...] a Diagonistic PSA not a screening PSA (49288) Draw Drawn (Normal) 13-May-2012 Draw Charge[i] Comments: [...] results to dr. hema boswell 14:28 ANTIGEN) (41335) PSA 16.45 ng/mL (Abnormal) Range: 0.00-4.00 14:28 PT (PROTHROMBIN TIME) Comments: Coumadin Dosage=5,5,5,7.5 Repeat. Took 7.5 on 04-27-12. ([facility]) (53078) 5. Dosage 7.5 Repeat mg (Normal) 4. Saturday Dosage 5.0 mg (Normal) 3. Saturday Dosage 5.0 mg (Normal) 2. Saturday Dosage 5.0 mg (Normal) 1. Saturday Dosage 7.5 mg (Normal) INR 2.17 (Normal) PT 22.7 s (Abnormal) Range: 10.4-12.4 14:28 Routine Venipuncture (12628) Draw Drawn (Normal) 13-May-2012 PSA (PROSTATE SPECIFIC Comments: A copy of this report will be faxed to: Bettie Boswell in this order include: PSA, Draw Charge[i]PSA allowed more than once a year due to being a Diagonistic PSA not a screening PSA 09:20 ANTIGEN) (19215) PSA 11.30 ng/mL (Abnormal) Range: 0.00-4.00 TSH (THYROID Comments: Items in this order include: TSH 16:40 STIMULATING HORMONE) (96151) TSH 1.36 uIU/ml (Normal) Range: 0.34-5.60 14:50 PT (PROTHROMBIN TIME) Comments: Items in this order include: Draw Charge[i], Basic Metabolic Panel, Hemoglobin A1C, Protime & INRLast Hbg A1C was ran 218 Days ago. Check by DL ([facility]) (97223) 5. Dosage Repeat mg (Normal) 4. Saturday [...] ran 218 Days ago. Check (HGB A1C) (91465) by DLplease draw enough blood so if [...] ran 218 Days ago. Check by DL (09150) Draw Drawn (Normal) DIGOXIN, DRUG ASSAY Comments: Items in this order include: CBC, Comprehensive Metabolic Panel, CKI, Digoxin, Draw Charge[i] 09:08 (87528) DIG 0.38 ng/mL (Abnormal) Range: 0.90-2.00 09:08 CK Comments: Items in this order include: CBC, Comprehensive Metabolic Panel, CKI, Digoxin, Draw Charge[i] CKI 143 U/L (Normal) Range: 39-308 09:08 CMP (51014) Comments: Items in this order include: CBC, [...] Metabolic Panel, CKI, Digoxin, Draw Charge[i] ONE! (32544) manual diff Not Indicated (Normal) mpv 6.84 [...] order include: Protime & INR, Draw Charge[i] (66188) Draw Drawn (Normal) 16:45 PT (PROTHROMBIN TIME) Comments: Items in this order include: Protime & INR, Draw Charge[i]Coumadin doasage=5,5,7.5 Repeat ([facility]) (69895) 7. Saturday Dosage 5.0 mg (Normal) 6. [...] order include: Draw Charge[i], PSA 11:11 ANTIGEN) (26773) PSA 6.92 ng/mL (Abnormal) Range: 0.00-4.00 11:11 Routine Venipuncture Comments: A copy of this report will be faxed to: Bettie Boswell in this order include: Draw Charge[i], PSA (00262) Draw Drawn (Normal) 17-Oct-2011 Routine Venipuncture 10:18 (95443) Draw Drawn (Normal) 10:18 TESTOSTERONE, FREE, Comments: Items in this order include: Protime & INR, Draw Charge[i], TESTOSTERONE, FREE, BIOAVAILABLE, AND TOTAL, LC/MS/ MSTesting performed at: [employer] [place], [address] [facility] [address]IO[place]AIL[place], [place], [address], Medical Consultant: Michael Chávez [facility] TOTAL, LC/MS/MS ALBUMIN,SERUM 4.4 [...] TIME) ([facility]) (96419) 7. Saturday Dosage 5.0 mg (Normal) 6. [...] Panel, Hemoglobin A1C, Draw Charge[i] (HGB A1C) (99574) A1C 6.1 % (Normal) Range: 4.6-6.2 13:29 [...] (Normal) Range: 135-145 13:29 DIGOXIN, DRUG ASSAY (72661) DIG 0.85 ng/mL (Abnormal) Range: 0.90-2.00 07-Aug-2011 TESTOSTERONE, FREE, Comments: Items in this order include: TESTOSTERONE, FREE, BIOAVAILABLE, AND TOTAL, LC/MS/MSTesting performed at: [employer] [place], [address] [address], [place] , [address], [place] 12:53 WEAKLY BOUND AND TOTAL ratory Director: Michael Chávez MD.[facility] (69196) ALBUMIN,SERUM 4.4 g/dL (Normal) Range: 3.6-5.1 SEX [...] dose ([facility]) (91140) 7. Saturday Dosage 7.5 mg (Normal) 6. [...] Charge[i] ([facility]) (59416) 7. Saturday Dosage 5.0 mg (Normal) 5. [...] Boswell in this order include: PSA ANTIGEN) (09478) PSA 5.95 ng/mL (Abnormal) Range: 0.00-4.00 CBC-MALE- ORDER THIS Comments: Items in this order include : Hemoglobin A1C, Comprehensive Metabolic Panel, CBC 11:56 ONE! (43333) manual diff Not Indicated (Normal) mpv 7.65 [...] 6.24 10*3/uL (Normal) Range: 4.50-10.50 11:56 CMP (34609) Comments: Items in this order include: Hemoglobin [...] this order include: Digoxin, Draw Charge[i] 15:17 (94728) DIG 1.18 ng/mL (Normal) Range: 0.90-2.00 HEMOGLOBIN GLYCLATED Comments: Items in this order include: Hemoglobin A1C, Comprehensive Metabolic Panel, CBC 11:56 (HGB A1C) (31218) A1C 6.6 % (Abnormal) Range: 4.6-6.2 Comments: Consistent with diabetes. 13:48 PT (PROTHROMBIN TIME) Comments: change to coumadin 5mg x 2 day then 7.5mg x1 repeat the cycle; Items in this order include: Protime & INR, Draw Charge[i]cyclechange to coumadin 5mg x 2 day then 7.5mg x1 repeat the ([facility]) (51021) 6. Saturday Dosage 7.5 mg (Normal) 7. [...] & INR, PSA, Draw Charge[i] 09:43 ANTIGEN) (68174) PSA 5.84 ng/mL (Abnormal) Range: 0.00-4.00 09:43 PT (PROTHROMBIN TIME) Comments: no change in coumadin; no change in coumadin ([facility]) (28248) 7. Saturday Dosage 7.5 mg (Normal) 6. Saturday Dosage 5.0 mg (Normal) 5. Dosage 7.5 mg (Normal) 4. Saturday Dosage 5.0 mg (Normal) 3. Saturday Dosage 5.0 mg (Normal) 1. Saturday Dosage 5.0 mg (Normal) 2. Saturday Dosage 7.5 mg (Normal) INR 3.45 (Normal) PT 32.9 s (Abnormal) Range: 10.4-12.4 23-Nov-2010 PT (PROTHROMBIN TIME) 10:03 ([facility]) (74486) 6. Saturday Dosage 7.5 mg (Normal) 7. Saturday Dosage 5 mg (Normal) 1. Saturday Dosage 5 mg (Normal) 2. Saturday Dosage 7.5 mg (Normal) 3. Saturday Dosage 5 mg (Normal) 4. Saturday Dosage 7.5 mg (Normal) 5. Dosage 5 mg (Normal) INR 2.16 (Normal) PT 21.0 s (Abnormal) Range: 10.4-12.4 19-Oct-2010 PT (PROTHROMBIN TIME) 15:16 ([facility]) (67788) 6. Saturday Dosage 5 mg (Normal) 7. Saturday Dosage 7.5 mg (Normal) 3. Saturday Dosage 7.5 mg (Normal) 4. Saturday Dosage 5 mg (Normal) 5. Dosage 7.5 mg (Normal) 1. Saturday Dosage 7.5 mg (Normal) 2. Saturday Dosage 5 mg (Normal) INR 2.13 (Normal) PT 20.7 s (Abnormal) Range: 10.4-12.4 12-Sep-2010 PT (PROTHROMBIN TIME) 11:03 ([facility]) (50811) INR 2.57 (Normal) PT (PROTHROMBIN TIME) 24.8 s (Abnormal) Range: 11.5-13.5 22-Aug-2010 PT (PROTHROMBIN TIME) 13:41 ([facility]) (23451) 09-Aug-2010 PSA, MEDICARE (G0103) Comments: please fax to dr hema boswell 09:54 PSA (Medicare) 4.83 ng/mL (Abnormal) Range: 0 - 4 09:34 PT (PROTHROMBIN TIME) ([facility]) (91348) INR 2.68 (Normal) PT (PROTHROMBIN TIME) 25.8 s (Abnormal) Range: 11.5-13.5 27-Jun-2010 PT (PROTHROMBIN TIME) 08:38 ([facility]) (70196) 26-Jun-2010 PT (PROTHROMBIN TIME) 16:21 ([facility]) (94103) INR 1.89 (Normal) PT (PROTHROMBIN TIME) 18.4 s (Abnormal) Range: 11.5-13.5 Treatment Plan PT (PROTHROMBIN TIME) ([facility]) (76843); Ordered: 03/15/2015Routine Venipuncture ( 87709); Ordered: 03/15/2015 Advance Directives Encounters Lab entry only - Encounter for long-term (current) use of anticoagulants ( V58.61 | Z79.01) On [facility] 17:37 to 17:39 Lab entry only - Elevated PSA (790.93) On [facility] 10:10 to 10:11 Lab entry only - Encounter for long-term (current) use of anticoagulants ( V58.61 | Z79.01), Encounter for long-term (current) use of anticoagulants ( V58.61 | Z79.01) On 14-Jan-2015 [facility] 14:52 to 14:53 Lab entry only - Encounter for long-term (current) use of anticoagulants ( V58.61 | Z79.01), Encounter for long-term (current) use of anticoagulants ( V58.61 | Z79.01) On 29-Nov-2014 [facility] 12:31 to 15:09 Medication Entry - Diabetes mellitus (250.00 | E11.9) On 12-Nov-2014 [facility] 11:46 to 11:53 Medication Entry - Cellulitis, leg (682.6 | L03.119) On 11-Nov-2014 [facility] 09:48 to 10:00 Office Visit - Gout [...] "Transition into care": He feels things are improved.[facility] Historical Summary On 27-Oct-2014 [facility] 15:03 to 15:08 Lab entry only - Fibrillation, atrial (427.31), Encounter for long-term ( current) use of anticoagulants (V58.61 | Z79.01) On 18-Oct-2014 [facility] 17:08 to 17:09 Medication Entry - Gout (274.9 | M10.9) On 12-Oct-2014 [facility] 16:17 to 16:22 Lab entry only - Encounter for long-term (current) use of anticoagulants ( V58.61 | Z79.01) On 21-Sep-2014 [facility] 15:31 to 15:33 Radiology Visit - Carotid stenosis (433.10 | I65.29) On 14-Sep-2014 [facility] 09:33 to 09:36 Lab entry only - Encounter for long-term (current) use of anticoagulants ( V58.61 | Z79.01) On 24-Aug-2014 [facility] 16:31 to 16:34 Office Visit - Health education (V65.40 | Z71.9), Prevnar (PCV13)FOR MEDICARE USE ONLY Pneumovax injection (V03.82) 30234, Encounter for long-term ( current) use of [...] lifeline screening. He mentions the "discoloration" of ankles.[facility] Historical Summary On 11-Aug-2014 [facility] 16:16 to 16:19 Lab entry only - Fibrillation, atrial (427.31), Encounter for long-term ( current) use of anticoagulants (V58.61 | Z79.01) On 06-Aug-2014 [facility] 16:41 to 16:43 Medication Entry - Benign essential hypertension (401.1 | I10) On 21-Jun-2014 [facility] 11:12 to 11:14 Lab entry only - Encounter for long-term (current) use of anticoagulants ( V58.61 | Z79.01) On 03-Jun-2014 [facility] 16:13 to 16:15 Lab entry only - Encounter for long-term (current) use of anticoagulants ( V58.61 | Z79.01) On [facility] 13:22 to 13:23 Lab entry only - Elevated PSA (790.93), Encounter for long-term (current) use of anticoagulants (V58.61 | Z79.01) On [facility] 14:27 to 14:28 Office Visit - Foot [...] thing in the morning and on stairs. [facility] Historical Summary On 28-Dec-2013 [facility] 12:26 to 12:29 Medication Entry - Encounter for long-term (current) use of anticoagulants ( V58.61 | Z79.01), Diabetes mellitus (250.00 | E11.9), Fibrillation, atrial ( 427.31) On 03-Nov-2013 [facility] 09:01 to 11:53 Medication Entry - Fibrillation, atrial (427.31), Diabetes mellitus (250.00 | E11.9) On 30-Oct-2013 [facility] 15:55 to 16:00 Lab entry only - Encounter for long-term (current) use of anticoagulants ( V58.61 | Z79.01) On 27-Oct-2013 [facility] 17:57 to 17:59 Office Visit - Need [...] M.D. after being in the hospital at [facility] on 10/16/13 & discharged on 10/17/13 dx jasmeet diaz, inr was done prior to visit.) . Note for "Transition into care": He passed a kidney stone a week ago.[facility] Historical Summary On 23-Oct-2013 [facility] 14:42 to 14:45 Lab entry only - Encounter for long-term (current) use of anticoagulants ( V58.61 | Z79.01) On 20-Oct-2013 [facility] 16:31 to 16:33 Lab entry only - Encounter for long-term (current) use of anticoagulants ( V58.61 | Z79.01) On 16-Sep-2013 [facility] 10:14 to 10:15 Lab entry only - Elevated PSA (790.93) On 15-Sep-2013 [facility] 11:11 to 11:12 Lab entry only - Encounter for long-term (current) use of anticoagulants ( V58.61 | Z79.01) On 07-Aug-2013 [facility] 14:32 to 14:33 Lab entry only - Benign essential hypertension (401.1 | I10), Diabetes mellitus (250.00 | E11.9) On 07-Aug-2013 [facility] 11:18 to 11:19 Lab entry only - Encounter for long-term (current) use of anticoagulants ( V58.61 | Z79.01) On 01-May-2013 [facility] 10:33 to 10:38 Office Visit - Diabetes [...] He did miss some meds while he traveled.[facility] Historical Summary On 29-Apr-2013 [facility] 11:46 to 11:49 Lab entry only - Encounter for long-term (current) use of anticoagulants ( V58.61 | Z79.01) On [facility] 16:39 to 16:42 Lab entry only - Encounter for long-term (current) use of anticoagulants ( V58.61 | Z79.01) On [facility] 19:40 to 19:42 Lab entry only - Elevated PSA (790.93) On [facility] 12:03 to 12:07 Office Visit - Laryngotracheobronchitis [...] for "Cough": He has not had an antibiotic.[facility] Lab entry only - Encounter for long-term (current) use of anticoagulants ( V58.61 | Z79.01) On 16-Dec-2012 [facility] 18:21 to 18:23 Lab entry only - Encounter for long-term (current) use of anticoagulants ( V58.61 | Z79.01) On 27-Nov-2012 [facility] 16:52 to 16:53 Lab entry only - Encounter for long-term (current) use of anticoagulants ( V58.61) On 26-Nov-2012 [facility] 15:04 to 15:05 Office Visit - Encounter [...] first thing in the morning and on stairs.[facility] Historical Summary On 29-Oct-2012 [facility] 16:15 to 16:17 Lab entry only - Encounter for long-term (current) use of anticoagulants ( V58.61) On 15-Oct-2012 [facility] 09:51 to 09:57 Lab entry only - Encounter for long-term (current) use of anticoagulants ( V58.61), Elevated PSA (790.93) On 14-Oct-2012 [facility] 10:25 to 10:26 Lab entry only - Encounter for long-term (current) use of anticoagulants ( V58.61) On 12-Sep-2012 [facility] 13:44 to 13:45 Medication Entry - Edema (782.3), Fibrillation, atrial (427.31) On 20-Aug-2012 [facility] 11:10 to 11:12 Medication Entry - Fibrillation, atrial (427.31), Edema (782.3) On 19-Aug-2012 [facility] 17:29 to 18:11 Medication Entry - Encounter for long-term (current) use of anticoagulants ( V58.61), Fibrillation, atrial (427.31), Diabetes mellitus (250.00) On 2011 [facility] 17:44 to 17:53 Office Visit - 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), Inflamed seborrheic keratosis (702.11), Hyperglycemia (790.29), Encounter for long-term (current) use of anticoagulants (V58.61), Fibrillation, atrial (427.31) On 01-Aug-2012 Encounter Reason: Follow up for chronic condition - The patient feels well with minor complaints (here today for a 3 month follow up with Dr. Romero ) .[facility] 09:34 to 10:39 Medication Entry - Encounter for long-term (current) use of anticoagulants ( V58.61) On 31-Jul-2012 [facility] 18:21 to 18:22 Historical Summary On 31-Jul-2012 [facility] 11:40 to 11:42 Lab entry only - Encounter for long-term (current) use of anticoagulants ( V58.61) On 23-Jun-2012 [facility] 18:47 to 18:52 Lab entry only - Elevated PSA (790.93), Encounter for long-term (current) use of anticoagulants (V58.61) On 23-Jun-2012 [facility] 15:48 to 15:53 Office Visit - Adjustment disorder with depressed mood (309.0), Encounter for long-term (current) use of anticoagulants (V58.61), Elevated PSA (790.93) On Encounter Reason: Follow up for chronic condition - The patient feels well with minor complaints (here for a 6 week follow up visit do to a new medication but did not start the medication).[facility] 11:19 to 13: 39 Historical Summary On 30-Apr-2012 [facility] 11:50 to 11:52 Lab entry only - Encounter for long-term (current) use of anticoagulants ( V58.61) On 28-Apr-2012 [facility] 17:23 to 17:26 Lab entry only - Elevated PSA (790.93), Encounter for long-term (current) use of anticoagulants (V58.61) On 28-Apr-2012 [facility] 14:19 to 14:22 Office Visit - Hyperglycemia [...] , had lab done prior to appt today).[facility] Lab entry only - Edema (782.3), Hyperglycemia (790.29), Encounter for long- term (current) use of anticoagulants (V58.61) On [facility] 11:06 to 11:14 Lab entry only - Elevated PSA (790.93), Fibrillation, atrial (427.31), Edema ( 782.3) On [facility] 09:02 to 09:05 Lab entry only - Encounter for long-term (current) use of anticoagulants ( V58.61) On [facility] 16:44 to 16:45 Medication Entry On 26-Oct-2011 [facility] 13:30 to 13:32 Lab entry only - Elevated PSA (790.93) On 23-Oct-2011 [facility] 11:01 to 11:04 Lab entry only - Encounter for long-term (current) use of anticoagulants ( V58.61), Low testosterone (257.2) On 17-Oct-2011 [facility] 10:15 to 10:17 Medication Entry - Fibrillation, atrial (427.31) On 04-Oct-2011 [facility] 09:26 to 09:38 Medication Entry - Fibrillation, atrial (427.31), Edema (782.3), Encounter for long-term (current) use of anticoagulants (V58.61), Benign prostatic hypertrophy without lower urinary tract symptoms (LUTS) (600.00) On 02-Oct-2011 [facility] 18:56 to 19:02 Medication Entry - Encounter for long-term (current) use of anticoagulants ( V58.61), Fibrillation, atrial (427.31), Edema (782.3) On 26-Sep-2011 [facility] 11:06 to 11:11 Medication Entry - Fibrillation, atrial (427.31), Encounter for long-term ( current) use of anticoagulants (V58.61) On 24-Sep-2011 [facility] 10:41 to 10:49 Lab entry only - Low testosterone (257.2) On 10-Aug-2011 [facility] 13:03 to 13:05 Lab entry only - Hyperglycemia (790.29), Encounter for long-term (current) use of anticoagulants (V58.61), Fibrillation, atrial (427.31) On 08-Aug-2011 [facility] 13:27 to 13:29 Office Visit - Fibrillation, [...] he 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." [facility] Historical Summary On 06-Aug-2011 [facility] 12:22 to 12:24 Medication Entry - Fibrillation, atrial (427.31) On 05-Jun-2011 [facility] 08:54 to 08:59 Lab entry only - Encounter for long-term (current) use of anticoagulants ( V58.61) On 15-May-2011 [facility] 18:48 to 18:50 Office Visit - Edema [...] up is diabetes, hypertension, cardiovascular disorder and other.[facility] Medication Entry - Benign prostatic hypertrophy without lower urinary tract symptoms (LUTS) (600.00) On 19-Apr-2011 [facility] 08:49 to 08:51 Lab entry only - Benign prostatic hypertrophy without lower urinary tract symptoms (LUTS) (600.00) On 10-Apr-2011 [facility] 15:15 to 15:19 Office Visit - Elevated [...] seeing dr. boswell the middle of apr.). [facility] Historical Summary On [facility] 16:05 to 16:18 Lab entry only - Encounter for long-term (current) use of anticoagulants ( V58.61) On [facility] 17:34 to 17:36 Lab entry only - Encounter for long-term (current) use of anticoagulants ( V58.61), Elevated PSA (790.93) On [facility] 09:42 to 09:43 Lab entry only - Encounter for long-term (current) use of anticoagulants ( V58.61) On 24-Nov-2010 [facility] 08:55 to 08:57 Lab entry only - Encounter for long-term (current) use of anticoagulants ( V58.61) On 20-Oct-2010 [facility] 14:42 to 14:46 Historical Summary - Encounter for long-term (current) use of anticoagulants ( V58.61) On 13-Sep-2010 [facility] 10:53 to 10:59 Historical Summary 12-Sep-2010 to 13-Sep-2010 [facility] Lab entry only - Encounter for long-term (current) use of anticoagulants ( V58.61) On 14-Aug-2010 [facility] 17:44 to 17:49 Historical Summary - Elevated PSA (790.93) 09-Aug-2010 to 15-Aug-2010 [facility] Lab entry only - Encounter for long-term (current) use of anticoagulants ( V58.61) 27-Jun-2010 to 28-Jun-2010 [facility] Lab entry only - Encounter for long-term (current) use of anticoagulants ( V58.61) On 26-Jun-2010 [facility] 16:21 to 22:23 Insurance Vijay Yuan; a guarantorMedicare [employer] [facility] [employer]
--- OUTSIDE RECORDS SUMMARY | 2017-10-22 17:57 | External Medical Summary | Continuity of Care Document ---
:1940 Author Organization [facility] Address [address] [place] [address] Phone Care Team Providers Name Role Phone [...] Prevnar (PCV13)FOR MEDICARE USE ONLY Pneumovax injection 50427 (V03.82) Status: Active Renal lithiasis (592.0, N20.0) [...] Comments:started on 10/17/13 after being dismissed from [facility] for kidney stone by gale CITALOPRAM [...] dx kidney stone from being discharged from [facility] testrone cream 10% apply 0.5ml daily [...] appt as scheduled Ordered:28-Oct-2014 CAROTID BILATERAL US (29037) Completed:14-Sep-2014 Comments: Verbal order from Dr. James Romero Follow up in 6 months Ordered:12-Aug-2014 PREVNAR 13 VALENT PNEUMOCOCCAL Completed:12-Aug-2014 VACCINE ([id number]) ADMINISTRATION OF PNEUMOCOCCAL Ordered:12-Aug-2014 CONJUGATE VACCINE (G0009) How to access health information Completed:12-Aug-2014 online Follow up in 6 months Ordered: Follow up in 2 months Ordered:26-Oct-2013 ADMIN INFLUENZA VIRUS VAC: FLU VACC Completed:26-Oct-2013 PRSV FREE INC ANTIG (83852) ADMINISTRATION OF INFLUENZA VIRUS Ordered:26-Oct-2013 VACCINE (G0008) Follow up in 6 months Ordered:30-Apr-2013 Follow up - Keep appt as scheduled Ordered:02-Jan-2013 Follow up in 6 months Ordered:30-Oct-2012 Follow up in 3 months Ordered:01-Aug-2012 Follow up in 3 months Ordered:01-May-2012 Follow up in 6 weeks Ordered: ADMINISTRATION OF INFLUENZA VIRUS Ordered:14-May-2011 VACCINE (G0008) FLU VACC PRSV FREE INC ANTIG Completed:14-May-2011 (55826) Follow up in 2 months Ordered:14-May-2011 Follow up in 2 months Ordered: Annual Eye Exam Completed:22-Nov-2008 Colonoscopy, Screening Completed: Colonoscopy, Screening Completed:06-Oct-2014 Flu Vaccine Completed:26-Oct-2013 Flu Vaccine Completed:06-Jun-2012 Comments: [facility] Flu Vaccine Completed:14-May-2011 Comments: high dose Pneumovax Completed:2008nar 13 Completed:12-Aug-2014 PSA Completed: Comments: (6.55) PSA Completed:28-Apr-2012 Comments: (16.45) PSA Completed:10-Apr-2011 Comments: (5.95) PSA Completed:23-Jun-2012 Comments: (8.05) PSA Completed:14-Oct-2012 Comments: (8.11) PSA Completed: Comments: (5.60) PSA Completed:15-Sep-2013 Comments: (5.40) PSA Completed: Comments: (6.15) PSA Completed:24-Aug-2014 Comments: (7.11) Immunization Name Dates Details Fluzone Administered on:14-May-2011 Comments: Site: Deltoid (Left); high dose Lot #: [id number] Influenza, preserv. free, enhanced immunogncty, IM Administered on:2013 Comments: Site: Deltoid (Left) Lot #: [id number] Pneumococcal conjugate vaccine, 13 valent, IM Administered on:12-Aug-2014 Comments: Site: Deltoid (Left) Lot #: [id number] Social History Name Dates Details Tobacco use: [...] Comments: The left neck Final 10:36 SINGLE (25519) lesion was removed and also the left [...] not sent to pathology. 10:35 PUNCH BIOPSY (95385) Comments: After Final FIRST BIOPSY cleansing the [...] A COPY TO [kyung], PSA 09:25 ANTIGEN) (87225) PSA 6.55 ng/mL (Abnormal) Range: 0.00-4.00 09:[address] Boswell Comments: A copy of this report will be faxed to: Bettie Boswell in this order include: A COPY TO [kyung], PSA Ordering Doctor . (Normal) 09:15 PT (PROTHROMBIN TIME) Comments: Items in this order include: Draw Charge[i], Protime & INRDoes patient have a artifical heart valve? No ([facility]) (46002) 8. Saturday Dosage 7.5 mg (Normal) 9. [...] order include: Draw Charge[i], Protime & INR (81784) Draw Drawn (Normal) 14-Jan-2015 PT (PROTHROMBIN TIME) Comments: Items in this order include: Draw Charge[i], Protime & INRDoes patient have a artifical heart valve? No 09:28 ([facility]) (99133) 9. Saturday Dosage 5.0 mg (Normal) 7. [...] order include: Draw Charge[i], Protime & INR (30183) Draw Drawn (Normal) 28-Oct-2014 PT (PROTHROMBIN TIME) Comments: Items in this order include: Draw Charge[i], Protime & INRDoes patient have a artifical heart valve? No 10:48 ([facility]) (68310) 9. Saturday Dosage 7.5 mg (Normal) 8. [...] order include: Draw Charge[i], Protime & INR (44024) Draw Drawn (Normal) 29-Nov-2014 PT (PROTHROMBIN TIME) Comments: Items in this order include: Draw Charge[i], Protime & INRDoes patient have a artifical heart valve? No 10:28 ([facility]) (22669) 9. Saturday Dosage 5.0 mg (Normal) 8. [...] order include: Draw Charge[i], Protime & INR (88228) Draw Drawn (Normal) 21-Sep-2014 PT (PROTHROMBIN TIME) Comments: Items in this order include: Draw Charge[i], Protime & INRDolynn patient have a artifical heart valve? No 10:08 ([facility]) (73212) 9. Saturday Dosage 5.0 mg (Normal) 7. [...] order include: Draw Charge[i], Protime & INR (14509) Draw Drawn (Normal) 24-Aug-2014 Routine Venipuncture Comments: Items in this order include: Protime & INR, Draw Charge[i] 09:59 (28820) Draw Drawn (Normal) 09:59 PT (PROTHROMBIN TIME) Comments: Items in this order include: Protime & INR, Draw Charge[i]INR value > 3.0 given to Estella by Beny Buckley patient have a artifical heart valve? No ([facility]) (82781) 9. Saturday Dosage 7.5 mg (Normal) 7. [...] Panel, Hemoglobin A1C, Urine Microalbumin, CBC ONE! (77675) manual diff Not Indicated (Normal) mpv 9.60 [...] Metabolic Panel, Hemoglobin A1C, Urine Microalbumin, CBC (12893) U A:C RATIO <30 mg/g Normal Range: <30 mg/g Normal (Normal) U CREAT 200 mg/dL (Normal) Range: 10-300 U ALB 80 mg/L (Abnormal) Range: 10 mg/L 09:59 HEMOGLOBIN GLYCLATED Comments: Items in this order include: Digoxin , PSA, Basic Metabolic Panel, Hemoglobin A1C, Urine Microalbumin, CBC (HGB A1C) (55748) A1C 5.9 % (Normal) Range: 4.6-6.2 Comments: Increased risk of diabetes. 09:59 [facility] (23158) Comments: Items in this order include: Digoxin, [...] Panel, Hemoglobin A1C, Urine Microalbumin, CBC ANTIGEN) (03814) PSA 7.11 ng/mL (Abnormal) Range: 0.00-4.00 09:59 DIGOXIN (02501) Comments: Items in this order include: Digoxin, PSA , Basic Metabolic Panel, Hemoglobin A1C, Urine Microalbumin, CBCTime of Last Dose? 08/23/2014 8:00 AMDosage? 0.25 DIG 0.36 ng/mL (Abnormal) Range: 0.90-2.00 4-Dec-2014 PT (PROTHROMBIN TIME) Comments: Items in this order include: Draw Charge[i], Protime & INRDoes patient have a artifical heart valve? No 10:48 ([facility]) (89385) 8. Saturday Dosage 7.5 mg (Normal) 9. [...] order include: Draw Charge[i], Protime & INR (25807) Draw Drawn (Normal) 03-Jun-2014 PT (PROTHROMBIN TIME) Comments: Items in this order include: Draw Charge[i], Protime & INRDoes patient have a artifical heart valve? No 13:56 ([facility]) (01582) 9. Saturday Dosage 7.5 mg (Normal) 8. [...] order include: Draw Charge[i], Protime & INR (13503) Draw Drawn (Normal) PT (PROTHROMBIN TIME) Comments: Items in this order include: Protime & INRDoes patient have a artifical heart valve? No 14:25 ([facility]) (75913) 9. Saturday Dosage 5.0 mg (Normal) 8. [...] this order include: Draw Charge[i], PSA ANTIGEN) (00344) PSA 6.15 ng/mL (Abnormal) Range: 0.00-4.00 14:25 Routine Venipuncture Comments: A copy of this report will be faxed to: Bettie Boswell in this order include: Draw Charge[i], PSA (49865) Draw Drawn (Normal) HEMOGLOBIN GLYCLATED Comments: Items in this order include: Hemoglobin A1C, Draw Charge[i], Comprehensive Metabolic Panel, Uric Acid 15:06 (HGB A1C) (65813) A1C 5.7 % (Normal) Range: 4.6-6.2 15:06 CMP (22617) Comments: Items in this order include: Hemoglobin [...] (Normal) Range: 135-145 15:06 URIC ACID BLOOD (22979) Comments: Items in this order include: Hemoglobin A1C, Draw Charge[i], Comprehensive Metabolic Panel, Uric Acid Uric Acid 8.0 mg/dL (Abnormal) Range: 3.6-7.7 15:06 Routine Venipuncture Comments: Items in this order include: Hemoglobin A1C, Draw Charge[i], Comprehensive Metabolic Panel, Uric Acid (47525) Draw Drawn (Normal) PT (PROTHROMBIN TIME) Comments: Items in this order include: Draw Charge[i], Protime & INRDoes patient have a artifical heart valve? No 14:27 ([facility]) (59991) 8. Saturday Dosage 5.0 mg (Normal) 9. [...] order include: Draw Charge[i], Protime & INR (66101) Draw Drawn (Normal) 26-Oct-2013 Draw Charge[i] Comments: Items in this order include: Basic Metabolic Panel, Draw Charge[i] 17:08 Draw Drawn (Normal) 17:05 [facility] (62270) Comments: Items in this order include: Basic [...] have a artifical heart valve? No ([facility]) (49505) 9. Saturday Dosage 5.0 mg (Normal) 7. [...] order include: Draw Charge[i], Protime & INR (46366) Draw Drawn (Normal) 15-Sep-2013 PSA (PROSTATE SPECIFIC Comments: A copy of this report will be faxed to: Bettie Boswell in this order include: A COPY TO [kyung] PSAPSA allowed more than once a year due to being a Diagonistic PSA not a screening PSA 11:05 ANTIGEN) (22813) PSA 5.40 ng/mL (Abnormal) Range: 0.00-4.00 11:05 [...] this order include: Comprehensive Metabolic Panel, Hemoglobin J3YJuss Hgb A1C was ran 99 Days ago. Check by MARGARITA 10:38 (HGB A1C) (45094) A1C 5.9 % (Normal) Range: 4.6-6.2 Comments: Increased risk of diabetes. 10:38 [facility] (11067) Comments: Items in this order include: Comprehensive Metabolic Panel, Hemoglobin R3FVeme Hgb A1C was ran 99 Days ago. [...] have a artifical heart valve? No ([facility]) (72476) 9. Saturday Dosage 5.0 (cycle of 5,5,7.5 [...] order include: Draw Charge[i], Protime & INR (53462) Draw Drawn (Normal) 10:38 DIGOXIN (66004) Comments: Items in this order include: DigoxinTime of Last Dose? 08/06/2013 8:30 AMDosage? 0.25 mg daily DIG 0.48 ng/mL (Abnormal) Range: 0.90-2.00 30-Apr-2013 HEMOGLOBIN GLYCLATED Comments: Items in this order include: Comprehensive Metabolic Panel, CBC, Hemoglobin [id number] Hgb A1C was ran 225 Days ago. Check by ms 11:58 (HGB A1C) (35662) A1C 6.1 % (Normal) Range: 4.6-6.2 11:58 CBC MALE- ORDER THIS Comments: Items in this order include: Comprehensive Metabolic Panel, CBC, Hemoglobin P4OXzli Hgb A1C was ran 225 Days ago. Check by ms ONE! (72205) manual diff Not Indicated (Normal) mpv 4.88 [...] 6.15 10*3/uL (Normal) Range: 4.50-10.50 11:58 CMP (62943) Comments: Items in this order include: Comprehensive Metabolic Panel, CBC, Hemoglobin R0IZpor Hgb A1C was ran 225 Days ago. [...] have a artifical heart valve? No ([facility]) (68389) 4. Saturday Dosage Repeat mg (Normal) 3. Saturday Dosage 7.5 mg (Normal) 2. Saturday Dosage 5.0 mg (Normal) 1. Saturday Dosage 5.0 mg (Normal) INR 2.60 (Normal) PT 26.8 s (Abnormal) Range: 10.4-12.4 -March-2013 PT (PROTHROMBIN TIME) Comments: Items in this order include: Draw Charge[i], Protime & INRDoes patient have a artifical heart valve? No 15:12 ([facility]) (39625) 5. Dosage Repeat mg (Normal) 4. Saturday Dosage 5.0 mg (Normal) 3. Saturday Dosage 5.0 mg (Normal) 2. Saturday Dosage 7.5 mg (Normal) INR 2.31 (Normal) PT 24.0 s (Abnormal) Range: 10.4-12.4 15:12 Routine Venipuncture Comments: Items in this order include: Draw Charge[i], Protime & INR (73304) Draw Drawn (Normal) PSA (PROSTATE SPECIFIC Comments: A copy of this report will be faxed to: Bettie Boswell in this order include: PSA, Draw Charge[i]PSA allowed more than once a year due to being a Diagonistic PSA not a screening PSA 10:00 ANTIGEN) (38953) PSA 5.60 ng/mL (Abnormal) Range: 0.00-4.00 10:00 [...] patient have a artifical heart valve? No ([facility]) (22549) 3. Saturday Dosage Repeat mg (Normal) 2. Saturday Dosage 7.5 mg (Normal) 1. Saturday Dosage 5.0 mg (Normal) INR 2.64 (Normal) PT 27.2 s (Abnormal) Range: 10.4-12.4 10:09 Routine Venipuncture Comments: Items in this order include: Draw Charge[i], Protime & INR (30743) Draw Drawn (Normal) 16-Dec-2012 PT (PROTHROMBIN TIME) Comments: Items in this order include: Draw Charge[i], Protime & INRDoes patient have a artifical heart valve? No 10:46 ([facility]) (94891) 4. Saturday Dosage Repeat mg (Normal) 3. Saturday Dosage 5.0 mg (Normal) 2. Saturday Dosage 7.5 mg (Normal) INR 2.13 (Normal) PT 22.2 s (Abnormal) Range: 10.4-12.4 10:46 Routine Venipuncture Comments: Items in this order include: Draw Charge[i], Protime & INR (39653) Draw Drawn (Normal) 26-Nov-2012 Routine Venipuncture Comments: Items in this order include: Protime & INR, Draw Charge[i] 15:05 (98889) Draw Drawn (Normal) 15:05 PT (PROTHROMBIN TIME) Comments: Items in this order include: Protime & INR, Draw Charge[i]Does patient have a artifical heart valve? No ([facility]) (67809) 4. Saturday Dosage 5.0 Repeat mg (Normal) 3. Saturday Dosage 5.0 mg (Normal) 2. Saturday Dosage 7.5 mg (Normal) INR 1.34 (Normal) PT 14.4 s (Abnormal) Range: 10.4-12.4 30-Oct-2012 PT (PROTHROMBIN TIME) Comments: Items in this order include: Draw Charge[i], Protime & INRINR value > 3.0 given to BW by Froy Chávez patient have a artifical heart valve? No 10:38 ([facility]) (84420) 7. Saturday Dosage 7.5 mg (Normal) 6. [...] order include: Draw Charge[i], Protime & INR (77688) Draw Drawn (Normal) 11:33 BMP Comments: Items [...] Dose? 10/29/2012 8:00 PMDosage? 0.25 mg Daily (89256) DIG 1.64 ng/mL (Normal) Range: 0.90-2.00 14-Oct-2012 PSA (PROSTATE SPECIFIC Comments: A copy of this report will be faxed to: Bettie Boswell in this order include: Draw Charge[i], Protime & INR, PSAPSA allowed more than once a year due to being a Diagonistic PSA not a screening PSA 10:25 ANTIGEN) (41664) PSA 8.11 ng/mL (Abnormal) Range: 0.00-4.00 10:25 PT (PROTHROMBIN TIME) Comments: PSA allowed more than once a year due to being a Diagonistic PSA not a screening PSACoumadin dosage=5,5,5,5,7.5 repeatDoes patient have a artifical heart valve? No ([facility]) (95995) 7. Saturday Dosage 7.5 mg (Normal) 6. [...] a Diagonistic PSA not a screening PSA (76738) Draw Drawn (Normal) 12-Sep-2012 PT (PROTHROMBIN TIME) Comments: Items in this order include: Draw Charge[i], Protime & INRDoes patient have a artifical heart valve? No 09:16 ([facility]) (42636) 6. Joao Dosage Repeat mg (Normal) 5. Dosage 7.5 mg (Normal) 4. Saturday Dosage 5.0 mg (Normal) 3. Saturday Dosage 5.0 mg (Normal) 2. Saturday Dosage 5.0 mg (Normal) 1. Saturday Dosage 5.0 mg (Normal) INR 2.48 (Normal) PT 25.7 s (Abnormal) Range: 10.4-12.4 09:16 Routine Venipuncture Comments: Items in this order include: Draw Charge[i], Protime & INR (63745) Draw Drawn (Normal) 18-Aug-2012 PT (PROTHROMBIN TIME) Comments: Items in this order include: Protime & INRDolynn patient have a artifical heart valve? No 11:44 ([facility]) (68913) 7. Saturday Dosage 5.0 mg (Normal) 6. [...] Days ago. Check by KB (HGB A1C) (77732) A1C 6.2 % (Normal) Range: 4.6-6.2 Comments: High risk of diabetes. 31-Jul-2012 PT (PROTHROMBIN TIME) Comments: Items in this order include: Draw Charge[i], Protime & INRINR value > 3.0 given to Estella by Beny Buckley patient have a artifical heart valve? No 13:32 ([facility]) (36358) 7. Saturday Dosage 5.0 mg (Normal) 6. [...] order include: Draw Charge[i], Protime & INR (40211) Draw Drawn (Normal) 23-Jun-2012 PSA (PROSTATE SPECIFIC Comments: A copy of this report will be faxed to: Bettie Boswell in this order include: Draw Charge[i], Protime & INR, PSAPSA allowed more than once a year due to being a Diagonistic PSA not a screening PSA 15:50 ANTIGEN) (32597) PSA 8.05 ng/mL (Abnormal) Range: 0.00-4.00 15:50 PT (PROTHROMBIN TIME) Comments: A copy of this report will be faxed to: Bettie Boswell in this order include: Draw Charge[i], Protime & INR , PSAPSA allowed more than once a year due to being a Diagonistic PSA not a screening ([facility]) (74112) PSADoes patient have a artifical heart valve? [...] a Diagonistic PSA not a screening PSA (21238) Draw Drawn (Normal) 13-May-2012 Draw Charge[i] Comments: [...] results to dr. hema boswell 14:28 ANTIGEN) (04882) PSA 16.45 ng/mL (Abnormal) Range: 0.00-4.00 14:28 PT (PROTHROMBIN TIME) Comments: Coumadin Dosage=5,5,5,7.5 Repeat. Took 7.5 on 04-27-12. ([facility]) (68291) 5. Dosage 7.5 Repeat mg (Normal) 4. Saturday Dosage 5.0 mg (Normal) 3. Saturday Dosage 5.0 mg (Normal) 2. Saturday Dosage 5.0 mg (Normal) 1. Saturday Dosage 7.5 mg (Normal) INR 2.17 (Normal) PT 22.7 s (Abnormal) Range: 10.4-12.4 14:28 Routine Venipuncture (35580) Draw Drawn (Normal) 13-May-2012 PSA (PROSTATE SPECIFIC Comments: A copy of this report will be faxed to: Bettie Boswell in this order include: PSA, Draw Charge[i]PSA allowed more than once a year due to being a Diagonistic PSA not a screening PSA 09:20 ANTIGEN) (70082) PSA 11.30 ng/mL (Abnormal) Range: 0.00-4.00 TSH (THYROID Comments: Items in this order include: TSH 16:40 STIMULATING HORMONE) (73162) TSH 1.36 uIU/ml (Normal) Range: 0.34-5.60 14:50 PT (PROTHROMBIN TIME) Comments: Items in this order include: Draw Charge[i], Basic Metabolic Panel, Hemoglobin A1C, Protime & INRLast Hbg A1C was ran 218 Days ago. Check by DL ([facility]) (32476) 5. Dosage Repeat mg (Normal) 4. Saturday [...] ran 218 Days ago. Check (HGB A1C) (04169) by DLplease draw enough blood so if [...] ran 218 Days ago. Check by DL (26341) Draw Drawn (Normal) [id number] DIGOXIN, DRUG ASSAY Comments: Items in this order include: CBC, Comprehensive Metabolic Panel, CKI, Digoxin, Draw Charge[i] 09:08 (84927) DIG 0.38 ng/mL (Abnormal) Range: 0.90-2.00 09:08 CK Comments: Items in this order include: CBC, Comprehensive Metabolic Panel, CKI, Digoxin, Draw Charge[i] CKI 143 U/L (Normal) Range: 39-308 09:08 CMP (30895) Comments: Items in this order include: CBC, [...] Metabolic Panel, CKI, Digoxin, Draw Charge[i] ONE! (98408) manual diff Not Indicated (Normal) mpv 6.84 [...] order include: Protime & INR, Draw Charge[i] (59069) Draw Drawn (Normal) 16:45 PT (PROTHROMBIN TIME) Comments: Items in this order include: Protime & INR, Draw Charge[i]Coumadin doasage=5,5,7.5 Repeat ([facility]) (65752) 7. Saturday Dosage 5.0 mg (Normal) 6. [...] order include: Draw Charge[i], PSA 11:11 ANTIGEN) (50856) PSA 6.92 ng/mL (Abnormal) Range: 0.00-4.00 11:11 Routine Venipuncture Comments: A copy of this report will be faxed to: Bettie Boswell in this order include: Draw Charge[i], PSA (37325) Draw Drawn (Normal) 17-Oct-2011 Routine Venipuncture 10:18 (84160) Draw Drawn (Normal) 10:18 TESTOSTERONE, FREE, Comments: Items in this order include: Protime & INR, Draw Charge[i], TESTOSTERONE, FREE, BIOAVAILABLE, AND TOTAL, LC/MS/ MSTesting performed at: [place], [address] [address], [place], [address], Transfer Engineer: Michael Chávez [facility] TOTAL, LC/MS/MS ALBUMIN,SERUM 4.4 [...] benefits counseling. 10:18 PT (PROTHROMBIN TIME) ([facility]) (74899) 7. Saturday Dosage 5.0 mg (Normal) 6. [...] Panel, Hemoglobin A1C, Draw Charge[i] (HGB A1C) (64945) A1C 6.1 % (Normal) Range: 4.6-6.2 13:29 [...] (Normal) Range: 135-145 13:29 DIGOXIN, DRUG ASSAY (38629) DIG 0.85 ng/mL (Abnormal) Range: 0.90-2.00 07-Aug-2011 TESTOSTERONE, FREE, Comments: Items in this order include: TESTOSTERONE, FREE, BIOAVAILABLE, AND TOTAL, LC/MS/MSTesting performed at: [facility] [place], [address] [address], [place] , [address], Labo 12:53 WEAKLY BOUND AND TOTAL ratory Director: Michael Chávez MD.[facility] (54062) ALBUMIN,SERUM 4.4 g/dL (Normal) Range: 3.6-5.1 SEX [...] Draw Charge[i]no change in coumadin dose ([facility]) (28806) 7. Saturday Dosage 7.5 mg (Normal) 6. [...] Panel, Protime & INR, Draw Charge[i] ([facility]) (81202) 7. Saturday Dosage 5.0 mg (Normal) 5. [...] Boswell in this order include: PSA ANTIGEN) (16143) PSA 5.95 ng/mL (Abnormal) Range: 0.00-4.00 CBC-MALE- ORDER THIS Comments: Items in this order include : Hemoglobin A1C, Comprehensive Metabolic Panel, CBC 11:56 ONE! (04592) manual diff Not Indicated (Normal) mpv 7.65 [...] 6.24 10*3/uL (Normal) Range: 4.50-10.50 11:56 CMP (28261) Comments: Items in this order include: Hemoglobin [...] this order include: Digoxin, Draw Charge[i] 15:17 (06764) DIG 1.18 ng/mL (Normal) Range: 0.90-2.00 HEMOGLOBIN GLYCLATED Comments: Items in this order include: Hemoglobin A1C, Comprehensive Metabolic Panel, CBC 11:56 (HGB A1C) (24461) A1C 6.6 % (Abnormal) Range: 4.6-6.2 Comments: Consistent with diabetes. 13:48 PT (PROTHROMBIN TIME) Comments: change to coumadin 5mg x 2 day then 7.5mg x1 repeat the cycle; Items in this order include: Protime & INR, Draw Charge[i]cyclechange to coumadin 5mg x 2 day then 7.5mg x1 repeat the ([facility]) (14285) 6. Saturday Dosage 7.5 mg (Normal) 7. [...] & INR, PSA, Draw Charge[i] 09:43 ANTIGEN) (65786) PSA 5.84 ng/mL (Abnormal) Range: 0.00-4.00 09:43 PT (PROTHROMBIN TIME) Comments: no change in coumadin; no change in coumadin ([facility]) (47381) 7. Saturday Dosage 7.5 mg (Normal) 6. Joao Dosage 5.0 mg (Normal) 5. Dosage 7.5 mg (Normal) 4. Saturday Dosage 5.0 mg (Normal) 3. Saturday Dosage 5.0 mg (Normal) 1. Saturday Dosage 5.0 mg (Normal) 2. Saturday Dosage 7.5 mg (Normal) INR 3.45 (Normal) PT 32.9 s (Abnormal) Range: 10.4-12.4 23-Nov-2010 PT (PROTHROMBIN TIME) 10:03 ([facility]) (18588) 6. Saturday Dosage 7.5 mg (Normal) 7. Saturday Dosage 5 mg (Normal) 1. Saturday Dosage 5 mg (Normal) 2. Saturday Dosage 7.5 mg (Normal) 3. Saturday Dosage 5 mg (Normal) 4. Saturday Dosage 7.5 mg (Normal) 5. Dosage 5 mg (Normal) INR 2.16 (Normal) PT 21.0 s (Abnormal) Range: 10.4-12.4 19-Oct-2010 PT (PROTHROMBIN TIME) 15:16 ([facility]) (75809) 6. Saturday Dosage 5 mg (Normal) 7. Saturday Dosage 7.5 mg (Normal) 3. Saturday Dosage 7.5 mg (Normal) 4. Saturday Dosage 5 mg (Normal) 5. Dosage 7.5 mg (Normal) 1. Saturday Dosage 7.5 mg (Normal) 2. Saturday Dosage 5 mg (Normal) INR 2.13 (Normal) PT 20.7 s (Abnormal) Range: 10.4-12.4 12-Sep-2010 PT (PROTHROMBIN TIME) 11:03 ([facility]) (14726) INR 2.57 (Normal) PT (PROTHROMBIN TIME) 24.8 s (Abnormal) Range: 11.5-13.5 22-Aug-2010 PT (PROTHROMBIN TIME) 13:41 ([facility]) (36720) 09-Aug-2010 PSA, MEDICARE (G0103) Comments: please fax to dr hema boswell 09:54 PSA (Medicare) 4.83 ng/mL (Abnormal) Range: 0 - 4 09:34 PT (PROTHROMBIN TIME) ([facility]) (93461) INR 2.68 (Normal) PT (PROTHROMBIN TIME) 25.8 s (Abnormal) Range: 11.5-13.5 27-Jun-2010 PT (PROTHROMBIN TIME) 08:38 ([facility]) (04109) 26-Jun-2010 PT (PROTHROMBIN TIME) 16:21 ([facility]) (96534) INR 1.89 (Normal) PT (PROTHROMBIN TIME) 18.4 s (Abnormal) Range: 11.5-13.5 Treatment Plan PT (PROTHROMBIN TIME) ([facility]) (66238); Ordered: 03/15/2015Routine Venipuncture ( 86606); Ordered: 03/15/2015 Advance Directives Encounters Historical Summary On [facility] 12:33 to 12:36 Lab entry only - Encounter for long-term (current) use of anticoagulants ( V58.61 | Z79.01) On [facility] 17:37 to 17:39 Lab entry only - Elevated PSA (790.93) On [facility] 10:10 to 10:11 Lab entry only - Encounter for long-term (current) use of anticoagulants ( V58.61 | Z79.01), Encounter for long-term (current) use of anticoagulants ( V58.61 | Z79.01) On 14-Jan-2015 [facility] 14:52 to 14:53 Lab entry only - Encounter for long-term (current) use of anticoagulants ( V58.61 | Z79.01), Encounter for long-term (current) use of anticoagulants ( V58.61 | Z79.01) On 29-Nov-2014 [facility] 12:31 to 15:09 Medication Entry - Diabetes mellitus (250.00 | E11.9) On 12-Nov-2014 [facility] 11:46 to 11:53 Medication Entry - Cellulitis, leg (682.6 | L03.119) On 11-Nov-2014 [facility] 09:48 to 10:00 Office [...] "Transition into care": He feels things are improved.[facility] Historical Summary On 27-Oct-2014 [facility] [facility] 15:03 to 15:08 Lab entry only - Fibrillation, atrial (427.31), Encounter for long-term ( current) use of anticoagulants (V58.61 | Z79.01) On 18-Oct-2014 [facility] 17:08 to 17:09 Medication Entry - Gout (274.9 | M10.9) On 12-Oct-2014 [facility] 16:17 to 16:22 Lab entry only - Encounter for long-term (current) use of anticoagulants ( V58.61 | Z79.01) On 21-Sep-2014 [facility] 15:31 to 15:33 Radiology Visit - Carotid stenosis (433.10 | I65.29) On 14-Sep-2014 [facility] 09:33 to 09:36 Lab entry only - Encounter for long-term (current) use of anticoagulants ( V58.61 | Z79.01) On 24-Aug-2014 [facility] 16:31 to 16:34 Office Visit - Health education (V65.40 | Z71.9), Prevnar (PCV13)FOR MEDICARE USE ONLY Pneumovax injection (V03.82) 09524, Encounter for long-term ( current) use of [...] lifeline screening. He mentions the "discoloration" of ankles.[facility] Historical Summary On 11-Aug-2014 [facility] 16:16 to 16:19 Lab entry only - Fibrillation, atrial (427.31), Encounter for long-term ( current) use of anticoagulants (V58.61 | Z79.01) On 06-Aug-2014 [facility] 16:41 to 16:43 Medication Entry - Benign essential hypertension (401.1 | I10) On 21-Jun-2014 [facility] 11:12 to 11:14 Lab entry only - Encounter for long-term (current) use of anticoagulants ( V58.61 | Z79.01) On 03-Jun-2014 [facility] 16:13 to 16:15 Lab entry only - Encounter for long-term (current) use of anticoagulants ( V58.61 | Z79.01) On [facility] 13:22 to 13:23 Lab entry only - Elevated PSA (790.93), Encounter for long-term (current) use of anticoagulants (V58.61 | Z79.01) On [facility] 14:27 to 14:28 Office [...] thing in the morning and on stairs. [facility] Historical Summary On 28-Dec-2013 [facility] 12:26 to 12:29 Medication Entry - Encounter for long-term (current) use of anticoagulants ( V58.61 | Z79.01), Diabetes mellitus (250.00 | E11.9), Fibrillation, atrial ( 427.31) On 03-Nov-2013 [facility] 09:01 to 11:53 Medication Entry - Fibrillation, atrial (427.31), Diabetes mellitus (250.00 | E11.9) On 30-Oct-2013 [facility] 15:55 to 16:00 Lab entry only - Encounter for long-term (current) use of anticoagulants ( V58.61 | Z79.01) On 27-Oct-2013 [facility] 17:57 to 17:59 Office [...] M.D. after being in the hospital at [facility] on 10/16/13 & discharged on 10/17/13 dx k idney stone, inr was done prior to visit.) . Note for "Transition into care": He passed a kidney stone a week ago.[facility] Historical Summary On 23-Oct-2013 [facility] 14:42 to 14:45 Lab entry only - Encounter for long-term (current) use of anticoagulants ( V58.61 | Z79.01) On 20-Oct-2013 [facility] 16:31 to 16:33 Lab entry only - Encounter for long-term (current) use of anticoagulants ( V58.61 | Z79.01) On 16-Sep-2013 [facility] 10:14 to 10:15 Lab entry only - Elevated PSA (790.93) On 15-Sep-2013 [facility] 11:11 to 11:12 Lab entry only - Encounter for long-term (current) use of anticoagulants ( V58.61 | Z79.01) On 07-Aug-2013 [facility] 14:32 to 14:33 Lab entry only - Benign essential hypertension (401.1 | I10), Diabetes mellitus (250.00 | E11.9) On 07-Aug-2013 [facility] 11:18 to 11:19 Lab entry only - Encounter for long-term (current) use of anticoagulants ( V58.61 | Z79.01) On 01-May-2013 [facility] 10:33 to 10:38 Office [...] He did miss some meds while he traveled.[facility] Historical Summary On 29-Apr-2013 [facility] 11:46 to 11:49 Lab entry only - Encounter for long-term (current) use of anticoagulants ( V58.61 | Z79.01) On [facility] 16:39 to 16:42 Lab entry only - Encounter for long-term (current) use of anticoagulants ( V58.61 | Z79.01) On [facility] 19:40 to 19:42 Lab entry only - Elevated PSA (790.93) On [facility] 12:03 to 12:07 Office [...] for "Cough": He has not had an antibiotic.[facility] Lab entry only - Encounter for long-term (current) use of anticoagulants ( V58.61 | Z79.01) On 16-Dec-2012 [facility] 18:21 to 18:23 Lab entry only - Encounter for long-term (current) use of anticoagulants ( V58.61 | Z79.01) On 27-Nov-2012 [facility] 16:52 to 16:53 Lab entry only - Encounter for long-term (current) use of anticoagulants ( V58.61) On 26-Nov-2012 [facility] 15:04 to 15:05 Office [...] first thing in the morning and on stairs.[facility] Historical Summary On 29-Oct-2012 [facility] 16:15 to 16:17 Lab entry only - Encounter for long-term (current) use of anticoagulants ( V58.61) On 15-Oct-2012 [facility] 09:51 to 09:57 Lab entry only - Encounter for long-term (current) use of anticoagulants ( V58.61), Elevated PSA (790.93) On 14-Oct-2012 [facility] 10:25 to 10:26 Lab entry only - Encounter for long-term (current) use of anticoagulants ( V58.61) On 12-Sep-2012 [facility] 13:44 to 13:45 Medication Entry - Edema (782.3), Fibrillation, atrial (427.31) On 20-Aug-2012 [facility] 11:10 to 11:12 Medication Entry - Fibrillation, atrial (427.31), Edema (782.3) On 19-Aug-2012 [facility] 17:29 to 18:11 Medication Entry - Encounter for long-term (current) use of anticoagulants ( V58.61), Fibrillation, atrial (427.31), Diabetes mellitus (250.00) On 2011 [facility] 17:44 to 17:53 Office Visit - 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), Inflamed seborrheic keratosis (702.11), Hyperglycemia (790.29), Encounter for long-term (current) use of anticoagulants (V58.61), Fibrillation, atrial (427.31) On 01-Aug-2012 Encounter Reason: Follow up for chronic condition - The patient feels well with minor complaints (here today for a 3 month follow up with Dr. Romero ) .[facility] 09:34 to 10:39 Medication Entry - Encounter for long-term (current) use of anticoagulants ( V58.61) On 31-Jul-2012 [facility] 18:21 to 18:22 Historical Summary On 31-Jul-2012 [facility] 11:40 to 11:42 Lab entry only - Encounter for long-term (current) use of anticoagulants ( V58.61) On 23-Jun-2012 [facility] 18:47 to 18:52 Lab entry only - Elevated PSA (790.93), Encounter for long-term (current) use of anticoagulants (V58.61) On 23-Jun-2012 [facility] 15:48 to 15:53 Office Visit - Adjustment disorder with depressed mood (309.0), Encounter for long-term (current) use of anticoagulants (V58.61), Elevated PSA (790.93) On Encounter Reason: Follow up for chronic condition - The patient feels well with minor complaints (here for a 6 week follow up visit do to a new medication but did not start the medication).[facility] 11:19 to 13: 39 Historical Summary On 30-Apr-2012 [facility] 11:50 to 11:52 Lab entry only - Encounter for long-term (current) use of anticoagulants ( V58.61) On 28-Apr-2012 [facility] 17:23 to 17:26 Lab entry only - Elevated PSA (790.93), Encounter for long-term (current) use of anticoagulants (V58.61) On 28-Apr-2012 [facility] 14:19 to 14:22 Office [...] , had lab done prior to appt today).[facility] Lab entry only - Edema (782.3), Hyperglycemia (790.29), Encounter for long- term (current) use of anticoagulants (V58.61) On [facility] 11:06 to 11:14 Lab entry only - Elevated PSA (790.93), Fibrillation, atrial (427.31), Edema ( 782.3) On [facility] 09:02 to 09:05 Lab entry only - Encounter for long-term (current) use of anticoagulants ( V58.61) On [facility] 16:44 to 16:45 Medication Entry On 26-Oct-2011 [facility] 13:30 to 13:32 Lab entry only - Elevated PSA (790.93) On 23-Oct-2011 [facility] 11:01 to 11:04 Lab entry only - Encounter for long-term (current) use of anticoagulants ( V58.61), Low testosterone (257.2) On 17-Oct-2011 [facility] 10:15 to 10:17 Medication Entry - Fibrillation, atrial (427.31) On 04-Oct-2011 [facility] 09:26 to 09:38 Medication Entry - Fibrillation, atrial (427.31), Edema (782.3), Encounter for long-term (current) use of anticoagulants (V58.61), Benign prostatic hypertrophy without lower urinary tract symptoms (LUTS) (600.00) On 02-Oct-2011 [facility] 18:56 to 19:02 Medication Entry - Encounter for long-term (current) use of anticoagulants ( V58.61), Fibrillation, atrial (427.31), Edema (782.3) On 26-Sep-2011 [facility] 11:06 to 11:11 Medication Entry - Fibrillation, atrial (427.31), Encounter for long-term ( current) use of anticoagulants (V58.61) On 24-Sep-2011 [facility] 10:41 to 10:49 Lab entry only - Low testosterone (257.2) On 10-Aug-2011 [facility] 13:03 to 13:05 Lab entry only - Hyperglycemia (790.29), Encounter for long-term (current) use of anticoagulants (V58.61), Fibrillation, atrial (427.31) On 08-Aug-2011 [facility] 13:27 to 13:29 Office [...] he 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." [facility] Historical Summary On 06-Aug-2011 [facility] 12:22 to 12:24 Medication Entry - Fibrillation, atrial (427.31) On 05-Jun-2011 [facility] 08:54 to 08:59 Lab entry only - Encounter for long-term (current) use of anticoagulants ( V58.61) On 15-May-2011 [facility] 18:48 to 18:50 Office [...] up is diabetes, hypertension, cardiovascular disorder and other.[facility] Medication Entry - Benign prostatic hypertrophy without lower urinary tract symptoms (LUTS) (600.00) On 19-Apr-2011 [facility] 08:49 to 08:51 Lab entry only - Benign prostatic hypertrophy without lower urinary tract symptoms (LUTS) (600.00) On 10-Apr-2011 [facility] 15:15 to 15:19 Office [...] seeing dr. boswell the middle of apr.). [facility] Historical Summary On [facility] 16:05 to 16:18 Lab entry only - Encounter for long-term (current) use of anticoagulants ( V58.61) On [facility] 17:34 to 17:36 Lab entry only - Encounter for long-term (current) use of anticoagulants ( V58.61), Elevated PSA (790.93) On [facility] 09:42 to 09:43 Lab entry only - Encounter for long-term (current) use of anticoagulants ( V58.61) On 24-Nov-2010 [facility] 08:55 to 08:57 Lab entry only - Encounter for long-term (current) use of anticoagulants ( V58.61) On 20-Oct-2010 [facility] 14:42 to 14:46 Historical Summary - Encounter for long-term (current) use of anticoagulants ( V58.61) On 13-Sep-2010 [facility] 10:53 to 10:59 Historical Summary 12-Sep-2010 to 13-Sep-2010 [facility] Lab entry only - Encounter for long-term (current) use of anticoagulants ( V58.61) On 14-Aug-2010 [facility] 17:44 to 17:49 Historical Summary - Elevated PSA (790.93) 09-Aug-2010 to 15-Aug-2010 [facility] Lab entry only - Encounter for long-term (current) use of anticoagulants ( V58.61) 27-Jun-2010 to 28-Jun-2010 [facility] Lab entry only - Encounter for long-term (current) use of anticoagulants ( V58.61) On 26-Jun-2010 [facility] 16:21 to 22:23 Insurance Vijay Yuan; a guarantorMedicare [employer] [place] [email or web address] InsuranceCVS/[facility]
--- OUTSIDE RECORDS SUMMARY | 2017-10-22 17:58 | External Medical Summary | Continuity of Care Document ---
:1940 Author Organization [facility] Address [address] [place] [address] Phone Care Team Providers Name Role Phone [...] Comments:started on 10/17/13 after being dismissed from [facility] for kidney stone by cac CITALOPRAM HYDROBROMIDE, [...] dx kidney stone from being discharged from [facility] PROMETHAZINE-DM, 6.25-15MG/5ML (Oral Syrup) 1-2 tsp Syrup Syrup every four hours, as needed for 10 days Quantity: 4 {Syrup} Refills: 1 Ordered:27-Oct-2015 SonaJustin hernandezn Start 02-Jan-2013 End 27-Oct-2015 Inactive Comments:Medication taken [...] BL DRAW < 3 YRS Ordered:28-Oct-2015 FEM/JUGULAR ([id number]) Follow up in 6 months Ordered:27-Oct-2015 How to access health information Completed:27-Jul-2015 online Skin Conditions Completed:27-Jul-2015 Follow up in 2 weeks Ordered:27-Jul-2015 HIGH DOSE QUADRIVALENT INFLUENZA Ordered:25-Jul-2015 VACCINE (94022) ADMINISTRATION OF INFLUENZA VIRUS Ordered:25-Jul-2015 VACCINE (G0008) Follow up in 3 months Ordered:25-Jul-2015 Follow up in 4 months Ordered: X-RAY EXAM OF KNEE, 1 OR 2 VIEWS Completed: Comments: right ([id number]) X-RAY EXAM OF BOTH KNEES, Completed: STANDING (47949) How to access health information Completed: online Follow up - Keep appt as scheduled Ordered:28-Oct-2014 CAROTID BILATERAL US ([id number]) Completed:14-Sep-2014 Comments: Verbal order from Dr. James Romero Follow up in 6 months Ordered:12-Aug-2014 PREVNAR 13 VALENT PNEUMOCOCCAL Completed:12-Aug-2014 VACCINE ([id number]) ADMINISTRATION OF PNEUMOCOCCAL Ordered:12-Aug-2014 CONJUGATE VACCINE (G0009) How to access health information Completed:12-Aug-2014 online Follow up in 6 months Ordered: Follow up in 2 months Ordered:26-Oct-2013 ADMIN INFLUENZA VIRUS VAC: FLU VACC Completed:26-Oct-2013 PRSV FREE INC ANTIG (18669) ADMINISTRATION OF INFLUENZA VIRUS Ordered:26-Oct-2013 VACCINE (G0008) Follow up in 6 months Ordered:30-Apr-2013 Follow up - Keep appt as scheduled Ordered:02-Jan-2013 Follow up in 6 months Ordered:30-Oct-2012 Follow up in 3 months Ordered:01-Aug-2012 Follow up in 3 months Ordered:01-May-2012 Follow up in 6 weeks Ordered: ADMINISTRATION OF INFLUENZA VIRUS Ordered:14-May-2011 VACCINE (G0008) FLU VACC PRSV FREE INC ANTIG Completed:14-May-2011 (72281) Follow up in 2 months Ordered:14-May-2011 Follow [...] Site: Deltoid (Left); high dose Lot #: [id number] Influenza, preserv. free, enhanced immunogncty, IM Administered on:2013 Comments: Site: Deltoid (Left) Lot #: [id number] Pneumococcal conjugate vaccine, 13 valent, IM Administered on:12-Aug-2014 Comments: Site: Deltoid (Left) Lot #: [id number] Social History Name Dates Details Tobacco use: [...] Comments: The left neck Final 10:36 SINGLE (91423) lesion was removed and also the left [...] not sent to pathology. 10:35 PUNCH BIOPSY (03448) Comments: After Final FIRST BIOPSY cleansing the [...] have a artifical heart valve? No ([facility]) (11501) 9. Saturday Dosage Repeat mg (Normal) 8. [...] Charge[i], Protime & INR, PSA 16:21 ANTIGEN) (74553) PSA 6.00 ng/mL (Abnormal) Range: 0.00-4.00 16:21 PT (PROTHROMBIN TIME) Comments: Does patient have a artifical heart valve? No ([facility] (58591) 8. Saturday Dosage 5.0 mg (Normal) 9. Saturday Dosage 7.5 mg (Normal) 6. Saturday Dosage 7.5 mg (Normal) 7. Dosage 7.5 mg (Normal) 5. Saturday Dosage 5.0 mg (Normal) 4. Saturday Dosage 7.5 mg (Normal) 3. Saturday Dosage 7.5 mg (Normal) INR 2.21 (Normal) PT 24.2 s (Abnormal) Range: 9.3-11.7 16:21 Routine Venipuncture (47640) Draw Drawn (Normal) 25-Oct-2015 URIC ACID BLOOD (50580) Comments: Items in this order include : CBC, Comprehensive Metabolic Panel, CKI, Hemoglobin A1C, Uric Acid, Draw Charge[i] 11:21 Uric Acid 5.5 mg/dL (Normal) Range: 3.5-7.2 11:21 HEMOGLOBIN GLYCLATED (HGB A1C) (21145) A1C 6.2 % (Normal) Range: 4.6-6.2 Comments: High risk of diabetes. 11:21 CK (66504) Comments: Items in this order include: CBC, Comprehensive Metabolic Panel, CKI, Hemoglobin A1C, Uric Acid, Draw Charge[i] CKI 288 U/L (Normal) Range: 39-308 11:21 CMP (14438) Comments: Items in this order include: CBC, [...] 135-145 11:21 CBC MALE- ORDER THIS ONE! (60340) manual diff Not Indicated (Normal) mpv 9.80 [...] have a artifical heart valve? No 15:06 ([facility]) (61650) 9. Saturday Dosage 7.5 mg (Normal) 8. [...] order include: Draw Charge[i], Protime & INR (47818) Draw Drawn (Normal) [facility] (81544) Comments: Items in this order include: Basic [...] include: A COPY TO [kyung], PSA ANTIGEN) (42909) PSA 6.55 ng/mL (Abnormal) Range: 0.00-4.00 09:[address] Boswell Comments: A copy of this report will be faxed to: Bettie Boswell in this order include: A COPY TO [kyung], PSA Ordering Doctor . (Normal) 09:15 PT (PROTHROMBIN TIME) Comments: Items in this order include: Draw Charge[i], Protime & INRDoes patient have a artifical heart valve? No ([facility]) (96928) 8. Saturday Dosage 7.5 mg (Normal) 9. [...] order include: Draw Charge[i], Protime & INR (04222) Draw Drawn (Normal) 14-Jan-2015 PT (PROTHROMBIN TIME) Comments: Items in this order include: Draw Charge[i], Protime & INRDoes patient have a artifical heart valve? No 09:28 ([facility]) (96500) 9. Saturday Dosage 5.0 mg (Normal) 7. [...] order include: Draw Charge[i], Protime & INR (06489) Draw Drawn (Normal) -Oct-2014 PT (PROTHROMBIN TIME) Comments: Items in this order include: Draw Charge[i], Protime & INRDoes patient have a artifical heart valve? No 10:48 ([facility]) (18464) 9. day Dosage 7.5 mg (Normal) 8. [...] order include: Draw Charge[i], Protime & INR (44186) Draw Drawn (Normal) 29-Nov-2014 PT (PROTHROMBIN TIME) Comments: Items in this order include: Draw Charge[i], Protime & INRDoes patient have a artifical heart valve? No 10:28 ([employer]) (84949) 9. Saturday Dosage 5.0 mg (Normal) 8. [...] order include: Draw Charge[i], Protime & INR (80874) Draw Drawn (Normal) 21-Sep-2014 PT (PROTHROMBIN TIME) Comments: Items in this order include: Draw Charge[i], Protime & INRDoes patient have a artifical heart valve? No 10:08 ([employer]) (78715) 9. Saturday Dosage 5.0 mg (Normal) 7. [...] order include: Draw Charge[i], Protime & INR (59770) Draw Drawn (Normal) 24-Aug-2014 Routine Venipuncture Comments: Items in this order include: Protime & INR, Draw Charge[i] 09:59 (07954) Draw Drawn (Normal) 09:59 PT (PROTHROMBIN TIME) Comments: Items in this order include: Protime & INR, Draw Charge[i]INR value > 3.0 given to Estella by Beny Buckley patient have a artifical heart valve? No ([facility]) (32090) 9. Saturday Dosage 7.5 mg (Normal) 7. [...] Panel, Hemoglobin A1C, Urine Microalbumin, CBC ONE! (84358) manual diff Not Indicated (Normal) mpv 9.60 [...] Metabolic Panel, Hemoglobin A1C, Urine Microalbumin, CBC (46966) U A:C RATIO <30 mg/g Normal Range: <30 mg/g Normal (Normal) U CREAT 200 mg/dL (Normal) Range: 10-300 U ALB 80 mg/L (Abnormal) Range: 10 mg/L 09:59 HEMOGLOBIN GLYCLATED Comments: Items in this order include: Digoxin , PSA, Basic Metabolic Panel, Hemoglobin A1C, Urine Microalbumin, CBC (HGB A1C) (18118) A1C 5.9 % (Normal) Range: 4.6-6.2 Comments: Increased risk of diabetes. 09:59 [facility] (32402) Comments: Items in this order include: Digoxin, [...] Panel, Hemoglobin A1C, Urine Microalbumin, CBC ANTIGEN) (21329) PSA 7.11 ng/mL (Abnormal) Range: 0.00-4.00 09:59 DIGOXIN (18987) Comments: Items in this order include: Digoxin, PSA , Basic Metabolic Panel, Hemoglobin A1C, Urine Microalbumin, CBCTime of Last Dose? 08/23/2014 8:00 AMDosage? 0.25 DIG 0.36 ng/mL (Abnormal) Range: 0.90-2.00 05-Aug-2014 PT (PROTHROMBIN TIME) Comments: Items in this order include: Draw Charge[i], Protime & INRDoes patient have a artifical heart valve? No 10:48 ([employer]) (22269) 8. Saturday Dosage 7.5 mg (Normal) 9. [...] order include: Draw Charge[i], Protime & INR (85377) Draw Drawn (Normal) 03-Jun-2014 PT (PROTHROMBIN TIME) Comments: Items in this order include: Draw Charge[i], Protime & INRDoes patient have a artifical heart valve? No 13:56 ([employer]) (78010) 9. Saturday Dosage 7.5 mg (Normal) 8. [...] order include: Draw Charge[i], Protime & INR (74841) Draw Drawn (Normal) PT (PROTHROMBIN TIME) Comments: Items in this order include: Protime & INRDoes patient have a artifical heart valve? No 14:25 ([facility]) (83298) 9. Saturday Dosage 5.0 mg (Normal) 8. [...] this order include: Draw Charge[i], PSA ANTIGEN) (15227) PSA 6.15 ng/mL (Abnormal) Range: 0.00-4.00 14:25 Routine Venipuncture Comments: A copy of this report will be faxed to: Bettie Boswell in this order include: Draw Charge[i], PSA (66295) Draw Drawn (Normal) HEMOGLOBIN GLYCLATED Comments: Items in this order include: Hemoglobin A1C, Draw Charge[i], Comprehensive Metabolic Panel, Uric Acid 15:06 (HGB A1C) (46304) A1C 5.7 % (Normal) Range: 4.6-6.2 15:06 CMP (07023) Comments: Items in this order include: Hemoglobin [...] (Normal) Range: 135-145 15:06 URIC ACID BLOOD (22137) Comments: Items in this order include: Hemoglobin A1C, Draw Charge[i], Comprehensive Metabolic Panel, Uric Acid Uric Acid 8.0 mg/dL (Abnormal) Range: 3.6-7.7 15:06 Routine Venipuncture Comments: Items in this order include: Hemoglobin A1C, Draw Charge[i], Comprehensive Metabolic Panel, Uric Acid (28564) Draw Drawn (Normal) -January-2014 PT (PROTHROMBIN TIME) Comments: Items in this order include: Draw Charge[i], Protime & INRDoes patient have a artifical heart valve? No 14:27 ([facility]) (64755) 8. Saturday Dosage 5.0 mg (Normal) 9. Saturday Dosage 5.0 (cycle 5,5,7.5) mg (Normal) 7. Dosage 7.5 mg (Normal) 6. Saturday Dosage 5.0 mg (Normal) 5. Saturday Dosage 5.0 mg (Normal) 4. Saturday Dosage 7.5 mg (Normal) 3. Willie Dosage 5.0 mg (Normal) INR 1.93 (Normal) PT 20.3 s (Abnormal) Range: 10.4-12.4 14:27 Routine Venipuncture Comments: Items in this order include: Draw Charge[i], Protime & INR (07166) Draw Drawn (Normal) 26-Oct-2013 Draw Charge[i] Comments: Items in this order include: Basic Metabolic Panel, Draw Charge[i] 17:08 Draw Drawn (Normal) 17:05 [facility] (24260) Comments: Items in this order include: Basic [...] patient have a artifical heart valve? No ([facility]) (39607) 9. Saturday Dosage 5.0 mg (Normal) 7. [...] order include: Draw Charge[i], Protime & INR (74568) Draw Drawn (Normal) 14-Rishabh-2014 PSA (PROSTATE SPECIFIC Comments: A copy of this report will be faxed to: Bettie Boswell in this order include: A COPY TO [kyung] PSAPSA allowed more than once a year due to being a Diagonistic PSA not a screening PSA 11:05 ANTIGEN) (97799) PSA 5.40 ng/mL (Abnormal) Range: 0.00-4.00 11:05 [...] this order include: Comprehensive Metabolic Panel, Hemoglobin Y3UEade Hgb A1C was ran 99 Days ago. Check by MARGARITA 10:38 (HGB A1C) (48821) A1C 5.9 % (Normal) Range: 4.6-6.2 Comments: Increased risk of diabetes. 10:38 [facility] (31076) Comments: Items in this order include: Comprehensive Metabolic Panel, Hemoglobin L2MHwor Hgb A1C was ran 99 Days ago. [...] patient have a artifical heart valve? No ([facility]) (37776) 9. Saturday Dosage 5.0 (cycle of 5,5,7.5 [...] order include: Draw Charge[i], Protime & INR (44941) Draw Drawn (Normal) 10:38 DIGOXIN (92814) Comments: Items in this order include: DigoxinTime of Last Dose? 08/06/2013 8:30 AMDosage? 0.25 mg daily DIG 0.48 ng/mL (Abnormal) Range: 0.90-2.00 30-Apr-2013 HEMOGLOBIN GLYCLATED Comments: Items in this order include: Comprehensive Metabolic Panel, CBC, Hemoglobin [id number] Hgb A1C was ran 225 Days ago. Check by ms 11:58 (HGB A1C) (77262) A1C 6.1 % (Normal) Range: 4.6-6.2 11:58 CBC MALE- ORDER THIS Comments: Items in this order include: Comprehensive Metabolic Panel, CBC, Hemoglobin [id number] Hgb A1C was ran 225 Days ago. Check by ms ONE! (69971) manual diff Not Indicated (Normal) mpv 4.88 [...] 6.15 10*3/uL (Normal) Range: 4.50-10.50 11:58 CMP (17283) Comments: Items in this order include: Comprehensive Metabolic Panel, CBC, Hemoglobin [id number] Hgb A1C was ran 225 Days ago. [...] patient have a artifical heart valve? No ([facility]) (49628) 4. Saturday Dosage Repeat mg (Normal) 3. Saturday Dosage 7.5 mg (Normal) 2. Saturday Dosage 5.0 mg (Normal) 1. Saturday Dosage 5.0 mg (Normal) INR 2.60 (Normal) PT 26.8 s (Abnormal) Range: 10.4-12.4 PT (PROTHROMBIN TIME) Comments: Items in this order include: Draw Charge[i], Protime & INRDoes patient have a artifical heart valve? No 15:12 ([facility]) (38029) 5. Dosage Repeat mg (Normal) 4. Saturday Dosage 5.0 mg (Normal) 3. Saturday Dosage 5.0 mg (Normal) 2. Saturday Dosage 7.5 mg (Normal) INR 2.31 (Normal) PT 24.0 s (Abnormal) Range: 10.4-12.4 15:12 Routine Venipuncture Comments: Items in this order include: Draw Charge[i], Protime & INR (73947) Draw Drawn (Normal) [id number] PSA (PROSTATE SPECIFIC Comments: A copy of this report will be faxed to: Bettie Boswell in this order include: PSA, Draw Charge[i]PSA allowed more than once a year due to being a Diagonistic PSA not a screening PSA 10:00 ANTIGEN) (09223) PSA 5.60 ng/mL (Abnormal) Range: 0.00-4.00 10:00 [...] patient have a artifical heart valve? No ([facility]) (03243) 3. Saturday Dosage Repeat mg (Normal) 2. Saturday Dosage 7.5 mg (Normal) 1. Saturday Dosage 5.0 mg (Normal) INR 2.64 (Normal) PT 27.2 s (Abnormal) Range: 10.4-12.4 10:09 Routine Venipuncture Comments: Items in this order include: Draw Charge[i], Protime & INR (62949) Draw Drawn (Normal) 16-Dec-2012 PT (PROTHROMBIN TIME) Comments: Items in this order include: Draw Charge[i], Protime & INRDoes patient have a artifical heart valve? No 10:46 ([employer]) (25433) 4. Saturday Dosage Repeat mg (Normal) 3. Saturday Dosage 5.0 mg (Normal) 2. Saturday Dosage 7.5 mg (Normal) INR 2.13 (Normal) PT 22.2 s (Abnormal) Range: 10.4-12.4 10:46 Routine Venipuncture Comments: Items in this order include: Draw Charge[i], Protime & INR (81272) Draw Drawn (Normal) 26-Nov-2012 Routine Venipuncture Comments: Items in this order include: Protime & INR, Draw Charge[i] 15:05 (17291) Draw Drawn (Normal) 15:05 PT (PROTHROMBIN TIME) Comments: Items in this order include: Protime & INR, Draw Charge[i]Does patient have a artifical heart valve? No ([employer]) (79435) 4. Saturday Dosage 5.0 Repeat mg (Normal) 3. Saturday Dosage 5.0 mg (Normal) 2. Saturday Dosage 7.5 mg (Normal) INR 1.34 (Normal) PT 14.4 s (Abnormal) Range: 10.4-12.4 30-Oct-2012 PT (PROTHROMBIN TIME) Comments: Items in this order include: Draw Charge[i], Protime & INRINR value > 3.0 given to BW by Froy Chávez patient have a artifical heart valve? No 10:38 ([facility]) (81745) 7. Saturday Dosage 7.5 mg (Normal) 6. [...] order include: Draw Charge[i], Protime & INR (48716) Draw Drawn (Normal) 11:33 BMP Comments: Items [...] Dose? 10/29/2012 8:00 PMDosage? 0.25 mg Daily (20957) DIG 1.64 ng/mL (Normal) Range: 0.90-2.00 14-Oct-2012 PSA (PROSTATE SPECIFIC Comments: A copy of this report will be faxed to: Bettie Boswell in this order include: Draw Charge[i], Protime & INR, PSAPSA allowed more than once a year due to being a Diagonistic PSA not a screening PSA 10:25 ANTIGEN) (30735) PSA 8.11 ng/mL (Abnormal) Range: 0.00-4.00 10:25 PT (PROTHROMBIN TIME) Comments: PSA allowed more than once a year due to being a Diagonistic PSA not a screening PSACoumadin dosage=5,5,5,5,7.5 repeatDoes patient have a artifical heart valve? No ([facility]) (71827) 7. Saturday Dosage 7.5 mg (Normal) 6. [...] a Diagonistic PSA not a screening PSA (81602) Draw Drawn (Normal) 12-Sep-2012 PT (PROTHROMBIN TIME) Comments: Items in this order include: Draw Charge[i], Protime & INRDoes patient have a artifical heart valve? No 09:16 ([employer]) (11631) 6. Saturday Dosage Repeat mg (Normal) 5. Dosage 7.5 mg (Normal) 4. Saturday Dosage 5.0 mg (Normal) 3. Saturday Dosage 5.0 mg (Normal) 2. Saturday Dosage 5.0 mg (Normal) 1. Saturday Dosage 5.0 mg (Normal) INR 2.48 (Normal) PT 25.7 s (Abnormal) Range: 10.4-12.4 09:16 Routine Venipuncture Comments: Items in this order include: Draw Charge[i], Protime & INR (45617) Draw Drawn (Normal) 18-Aug-2012 PT (PROTHROMBIN TIME) Comments: Items in this order include: Protime & INRDoes patient have a artifical heart valve? No 11:44 ([employer]) (12091) 7. Saturday Dosage 5.0 mg (Normal) 6. [...] Days ago. Check by KB (HGB A1C) (77404) A1C 6.2 % (Normal) Range: 4.6-6.2 Comments: High risk of diabetes. 31-Jul-2012 PT (PROTHROMBIN TIME) Comments: Items in this order include: Draw Charge[i], Protime & INRINR value > 3.0 given to Estella by Beny Buckley patient have a artifical heart valve? No 13:32 ([facility]) (67180) 7. Saturday Dosage 5.0 mg (Normal) 6. [...] order include: Draw Charge[i], Protime & INR (46784) Draw Drawn (Normal) 23-Jun-2012 PSA (PROSTATE SPECIFIC Comments: A copy of this report will be faxed to: Bettie Boswell in this order include: Draw Charge[i], Protime & INR, PSAPSA allowed more than once a year due to being a Diagonistic PSA not a screening PSA 15:50 ANTIGEN) (37695) PSA 8.05 ng/mL (Abnormal) Range: 0.00-4.00 15:50 PT (PROTHROMBIN TIME) Comments: A copy of this report will be faxed to: Bettie Boswell in this order include: Draw Charge[i], Protime & INR , PSAPSA allowed more than once a year due to being a Diagonistic PSA not a screening ([facility]) (87673) PSADoes patient have a artifical heart valve? [...] a Diagonistic PSA not a screening PSA (04507) Draw Drawn (Normal) 13-May-2012 Draw Charge[i] Comments: [...] results to dr. hema boswell 14:28 ANTIGEN) (35697) PSA 16.45 ng/mL (Abnormal) Range: 0.00-4.00 14:28 PT (PROTHROMBIN TIME) Comments: Coumadin Dosage=5,5,5,7.5 Repeat. Took 7.5 on 04-27-12. ([facility]) (79901) 5. Dosage 7.5 Repeat mg (Normal) 4. Saturday Dosage 5.0 mg (Normal) 3. Saturday Dosage 5.0 mg (Normal) 2. Saturday Dosage 5.0 mg (Normal) 1. Saturday Dosage 7.5 mg (Normal) INR 2.17 (Normal) PT 22.7 s (Abnormal) Range: 10.4-12.4 14:28 Routine Venipuncture (01492) Draw Drawn (Normal) 13-May-2012 PSA (PROSTATE SPECIFIC Comments: A copy of this report will be faxed to: Bettie Boswell in this order include: PSA, Draw Charge[i]PSA allowed more than once a year due to being a Diagonistic PSA not a screening PSA 09:20 ANTIGEN) (38985) PSA 11.30 ng/mL (Abnormal) Range: 0.00-4.00 [id number] TSH (THYROID Comments: Items in this order include: TSH 16:40 STIMULATING HORMONE) (13931) TSH 1.36 uIU/ml (Normal) Range: 0.34-5.60 14:50 PT (PROTHROMBIN TIME) Comments: Items in this order include: Draw Charge[i], Basic Metabolic Panel, Hemoglobin A1C, Protime & INRLast Hbg A1C was ran 218 Days ago. Check by DL ([facility]) (05446) 5. Dosage Repeat mg (Normal) 4. Saturday [...] ran 218 Days ago. Check (HGB A1C) (99049) by DLplease draw enough blood so if [...] ran 218 Days ago. Check by DL (72205) Draw Drawn (Normal) [id number] DIGOXIN, DRUG ASSAY Comments: Items in this order include: CBC, Comprehensive Metabolic Panel, CKI, Digoxin, Draw Charge[i] 09:08 (66862) DIG 0.38 ng/mL (Abnormal) Range: 0.90-2.00 09:08 CK Comments: Items in this order include: CBC, Comprehensive Metabolic Panel, CKI, Digoxin, Draw Charge[i] CKI 143 U/L (Normal) Range: 39-308 09:08 CMP (49776) Comments: Items in this order include: CBC, [...] Metabolic Panel, CKI, Digoxin, Draw Charge[i] ONE! (48333) manual diff Not Indicated (Normal) mpv 6.84 [...] order include: Protime & INR, Draw Charge[i] (45518) Draw Drawn (Normal) 16:45 PT (PROTHROMBIN TIME) Comments: Items in this order include: Protime & INR, Draw Charge[i]Coumadin doasage=5,5,7.5 Repeat ([facility]) (72439) 7. Saturday Dosage 5.0 mg (Normal) 6. [...] order include: Draw Charge[i], PSA 11:11 ANTIGEN) (57451) PSA 6.92 ng/mL (Abnormal) Range: 0.00-4.00 11:11 Routine Venipuncture Comments: A copy of this report will be faxed to: Bettie Boswell in this order include: Draw Charge[i], PSA (15174) Draw Drawn (Normal) 17-Oct-2011 Routine Venipuncture 10:18 (51329) Draw Drawn (Normal) 10:18 TESTOSTERONE, FREE, Comments: Items in this order include: Protime & INR, Draw Charge[i], TESTOSTERONE, FREE, BIOAVAILABLE, AND TOTAL, LC/MS/ MSTesting performed at: [place], [address] [address], [place], [address], Kiln Door Repairer: Lori Maradiaga TOTAL, LC/MS/MS ALBUMIN,SERUM 4.4 g/dL (Normal) Range: [...] and benefits counseling. 10:18 PT (PROTHROMBIN TIME) ([facility]) (74815) 7. Saturday Dosage 5.0 mg (Normal) 6. [...] Panel, Hemoglobin A1C, Draw Charge[i] (HGB A1C) (41085) A1C 6.1 % (Normal) Range: 4.6-6.2 13:29 [...] (Normal) Range: 135-145 13:29 DIGOXIN, DRUG ASSAY (88771) DIG 0.85 ng/mL (Abnormal) Range: 0.90-2.00 07-Aug-2011 TESTOSTERONE, FREE, Comments: Items in this order include: TESTOSTERONE, FREE, BIOAVAILABLE, AND TOTAL, LC/MS/MSTesting performed at: [place], [address] [address], [place] , [address], [place] 12:53 WEAKLY BOUND AND TOTAL ratory Director: Michael Chávez MD.[facility] (19000) ALBUMIN,SERUM 4.4 g/dL (Normal) Range: 3.6-5.1 SEX [...] INR, Draw Charge[i]no change in coumadin dose ([facility]) (22521) 7. Saturday Dosage 7.5 mg (Normal) 6. [...] Metabolic Panel, Protime & INR, Draw Charge[i] ([facility]) (51928) 7. Saturday Dosage 5.0 mg (Normal) 5. [...] Boswell in this order include: PSA ANTIGEN) (32276) PSA 5.95 ng/mL (Abnormal) Range: 0.00-4.00 CBC-MALE- ORDER THIS Comments: Items in this order include : Hemoglobin A1C, Comprehensive Metabolic Panel, CBC 11:56 ONE! (63068) manual diff Not Indicated (Normal) mpv 7.65 [...] 6.24 10*3/uL (Normal) Range: 4.50-10.50 11:56 CMP (83045) Comments: Items in this order include: Hemoglobin [...] this order include: Digoxin, Draw Charge[i] 15:17 (16585) DIG 1.18 ng/mL (Normal) Range: 0.90-2.00 HEMOGLOBIN GLYCLATED Comments: Items in this order include: Hemoglobin A1C, Comprehensive Metabolic Panel, CBC 11:56 (HGB A1C) (03776) A1C 6.6 % (Abnormal) Range: 4.6-6.2 Comments: Consistent with diabetes. 13:48 PT (PROTHROMBIN TIME) Comments: change to coumadin 5mg x 2 day then 7.5mg x1 repeat the cycle; Items in this order include: Protime & INR, Draw Charge[i]cyclechange to coumadin 5mg x 2 day then 7.5mg x1 repeat the ([facility]) (48567) 6. Saturday Dosage 7.5 mg (Normal) 7. Saturday Dosage 5.0 mg (Normal) 5. Dosage 5.0 mg (Normal) 4. Saturday Dosage 5.0 mg (Normal) 2. Quinton Dosage 5.0 mg (Normal) 3. Mónica Dosage 7.5 mg (Normal) 1. Willie Dosage 5.0 mg (Normal) INR 1.55 (Normal) PT 15.2 s (Abnormal) Range: 10.4-12.4 PSA (PROSTATE SPECIFIC Comments: A copy of this report will be faxed to: Bettie Boswell in this order include: Protime & INR, PSA, Draw Charge[i] 09:43 ANTIGEN) (58420) PSA 5.84 ng/mL (Abnormal) Range: 0.00-4.00 09:43 PT (PROTHROMBIN TIME) Comments: no change in coumadin; no change in coumadin ([facility]) (62960) 7. Saturday Dosage 7.5 mg (Normal) 6. Saturday Dosage 5.0 mg (Normal) 5. Dosage 7.5 mg (Normal) 4. Saturday Dosage 5.0 mg (Normal) 3. Saturday Dosage 5.0 mg (Normal) 1. Saturday Dosage 5.0 mg (Normal) 2. Saturday Dosage 7.5 mg (Normal) INR 3.45 (Normal) PT 32.9 s (Abnormal) Range: 10.4-12.4 23-Nov-2010 PT (PROTHROMBIN TIME) 10:03 ([facility] [place] ([id number]) 6. Saturday Dosage 7.5 mg (Normal) 7. Saturday Dosage 5 mg (Normal) 1. Saturday Dosage 5 mg (Normal) 2. Saturday Dosage 7.5 mg (Normal) 3. Saturday Dosage 5 mg (Normal) 4. Saturday Dosage 7.5 mg (Normal) 5. Dosage 5 mg (Normal) INR 2.16 (Normal) PT 21.0 s (Abnormal) Range: 10.4-12.4 19-Oct-2010 PT (PROTHROMBIN TIME) 15:16 [place] [id number] 6. Joao Dosage 5 mg (Normal) 7. Saturday Dosage 7.5 mg (Normal) 3. Saturday Dosage 7.5 mg (Normal) 4. Saturday Dosage 5 mg (Normal) 5. Dosage 7.5 mg (Normal) 1. Willie Dosage 7.5 mg (Normal) 2. Saturday Dosage 5 mg (Normal) INR 2.13 (Normal) PT 20.7 s (Abnormal) Range: 10.4-12.4 12-Sep-2010 PT (PROTHROMBIN TIME) 11:03 ([facility] [place] ([id number]) INR 2.57 (Normal) PT (PROTHROMBIN TIME) 24.8 s (Abnormal) Range: 11.5-13.5 22-Aug-2010 PT (PROTHROMBIN TIME) 13:41 ([facility]) ([id number]) 09-Aug-2010 PSA, MEDICARE (G0103) Comments: please fax to dr hema boswell 09:54 PSA (Medicare) 4.83 ng/mL (Abnormal) Range: 0 - 4 09:34 PT (PROTHROMBIN TIME) ([facility] [place] ([id number]) INR 2.68 (Normal) PT (PROTHROMBIN TIME) 25.8 s (Abnormal) Range: 11.5-13.5 27-Jun-2010 PT (PROTHROMBIN TIME) 08:38 ([facility]) (36803) 26-Jun-2010 PT (PROTHROMBIN TIME) 16:21 ([facility] [place] ([id number]) INR 1.89 (Normal) PT (PROTHROMBIN TIME) 18.4 s (Abnormal) Range: 11.5-13.5 Treatment Plan LIPID PANEL (90709); Ordered: 10/28/2015; Note: Verbal order from Dr. [...] problems with his a-fib at todays visit. 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 He said he is having quite a bit of pain with the nodule and some occasional drainage. Seems to be recurrent for him. 09:10 to 09:52 [facility] Office Visit - PG (pyogenic granuloma) [...] nail problems": He continues with his usual medications.[facility] Lab entry only - Encounter for long-term (current) use of anticoagulants ( V58.61 | Z79.01) On 07-Jul-2015 [facility] 16:55 to 16:56 Office Visit - [...] the stairs and I have to crawl. [facility] Historical Summary On [facility] 12:33 to 12:36 Lab entry only - Encounter for long-term (current) use of anticoagulants ( V58.61 | Z79.01) On [facility] 17:37 to 17:39 Lab entry only - Elevated PSA (790.93) On [facility] 10:10 to 10:11 Lab entry only - Encounter for long-term (current) use of anticoagulants ( V58.61 | Z79.01), Encounter for long-term (current) use of anticoagulants ( V58.61 | Z79.01) On 14-Jan-2015 [facility] 14:52 to 14:53 Lab entry only - Encounter for long-term (current) use of anticoagulants ( V58.61 | Z79.01), Encounter for long-term (current) use of anticoagulants ( V58.61 | Z79.01) On 29-Nov-2014 [facility] 12:31 to 15:09 Medication Entry - Diabetes mellitus (250.00 | E11.9) On 12-Nov-2014 [facility] 11:46 to 11:53 Medication Entry - Cellulitis, leg (682.6 | L03.119) On 11-Nov-2014 [facility] 09:48 to 10:00 Office Visit - [...] "Transition into care": He feels things are improved.[facility] Historical Summary On 27-Oct-2014 [facility] 15:03 to 15:08 Lab entry only - Fibrillation, atrial (427.31), Encounter for long-term ( current) use of anticoagulants (V58.61 | Z79.01) On 18-Oct-2014 [facility] 17:08 to 17:09 Medication Entry - Gout (274.9 | M10.9) On 12-Oct-2014 [facility] 16:17 to 16:22 Lab entry only - Encounter for long-term (current) use of anticoagulants ( V58.61 | Z79.01) On 21-Sep-2014 [facility] 15:31 to 15:33 Radiology Visit - Carotid stenosis (433.10 | I65.29) On 14-Sep-2014 [facility] 09:33 to 09:36 Lab entry only - Encounter for long-term (current) use of anticoagulants ( V58.61 | Z79.01) On 24-Aug-2014 [facility] 16:31 to 16:34 Office Visit - Health education (V65.40 | Z71.9), Prevnar (PCV13)FOR MEDICARE USE ONLY Pneumovax injection (V03.82) 78593, Encounter for long-term ( current) use of [...] lifeline screening. He mentions the "discoloration" of ankles.[facility] Historical Summary On 11-Aug-2014 [facility] 16:16 to 16:19 Lab entry only - Fibrillation, atrial (427.31), Encounter for long-term ( current) use of anticoagulants (V58.61 | Z79.01) On 06-Aug-2014 [facility] 16:41 to 16:43 Medication Entry - Benign essential hypertension (401.1 | I10) On 21-Jun-2014 [facility] 11:12 to 11:14 Lab entry only - Encounter for long-term (current) use of anticoagulants ( V58.61 | Z79.01) On 03-Jun-2014 [facility] 16:13 to 16:15 Lab entry only - Encounter for long-term (current) use of anticoagulants ( V58.61 | Z79.01) On [facility] 13:22 to 13:23 Lab entry only - Elevated PSA (790.93), Encounter for long-term (current) use of anticoagulants (V58.61 | Z79.01) On [facility] 14:27 to 14:28 Office Visit - [...] thing in the morning and on stairs. [facility] Historical Summary On 28-Dec-2013 [facility] 12:26 to 12:29 Medication Entry - Encounter for long-term (current) use of anticoagulants ( V58.61 | Z79.01), Diabetes mellitus (250.00 | E11.9), Fibrillation, atrial ( 427.31) On 03-Nov-2013 [facility] 09:01 to 11:53 Medication Entry - Fibrillation, atrial (427.31), Diabetes mellitus (250.00 | E11.9) On 30-Oct-2013 [facility] 15:55 to 16:00 Lab entry only - Encounter for long-term (current) use of anticoagulants ( V58.61 | Z79.01) On 27-Oct-2013 [facility] 17:57 to 17:59 Office Visit - [...] M.D. after being in the hospital at [facility] on 10/16/13 & discharged on 10/17/13 dx jasmeet diaz, inr was done prior to visit.) . Note for "Transition into care": He passed a kidney stone a week ago.[facility] Historical Summary On 23-Oct-2013 [facility] 14:42 to 14:45 Lab entry only - Encounter for long-term (current) use of anticoagulants ( V58.61 | Z79.01) On 20-Oct-2013 [facility] 16:31 to 16:33 Lab entry only - Encounter for long-term (current) use of anticoagulants ( V58.61 | Z79.01) On 16-Sep-2013 [facility] 10:14 to 10:15 Lab entry only - Elevated PSA (790.93) On 15-Sep-2013 [facility] 11:11 to 11:12 Lab entry only - Encounter for long-term (current) use of anticoagulants ( V58.61 | Z79.01) On 07-Aug-2013 [facility] 14:32 to 14:33 Lab entry only - Benign essential hypertension (401.1 | I10), Diabetes mellitus (250.00 | E11.9) On 07-Aug-2013 [facility] 11:18 to 11:19 Lab entry only - Encounter for long-term (current) use of anticoagulants ( V58.61 | Z79.01) On 01-May-2013 [facility] 10:33 to 10:38 Office Visit - [...] He did miss some meds while he traveled.[facility] Historical Summary On 29-Apr-2013 [facility] 11:46 to 11:49 Lab entry only - Encounter for long-term (current) use of anticoagulants ( V58.61 | Z79.01) On [facility] 16:39 to 16:42 Lab entry only - Encounter for long-term (current) use of anticoagulants ( V58.61 | Z79.01) On [facility] 19:40 to 19:42 Lab entry only - Elevated PSA (790.93) On [facility] 12:03 to 12:07 Office Visit - [...] for "Cough": He has not had an antibiotic.[facility] Lab entry only - Encounter for long-term (current) use of anticoagulants ( V58.61 | Z79.01) On 16-Dec-2012 [facility] 18:21 to 18:23 Lab entry only - Encounter for long-term (current) use of anticoagulants ( V58.61 | Z79.01) On 27-Nov-2012 [facility] 16:52 to 16:53 Lab entry only - Encounter for long-term (current) use of anticoagulants ( V58.61) On 26-Nov-2012 [facility] 15:04 to 15:05 Office Visit - [...] first thing in the morning and on stairs.[facility] Historical Summary On 29-Oct-2012 [facility] 16:15 to 16:17 Lab entry only - Encounter for long-term (current) use of anticoagulants ( V58.61) On 15-Oct-2012 [facility] 09:51 to 09:57 Lab entry only - Encounter for long-term (current) use of anticoagulants ( V58.61), Elevated PSA (790.93) On 14-Oct-2012 [facility] 10:25 to 10:26 Lab entry only - Encounter for long-term (current) use of anticoagulants ( V58.61) On 12-Sep-2012 [facility] 13:44 to 13:45 Medication Entry - Edema (782.3), Fibrillation, atrial (427.31) On 20-Aug-2012 [facility] 11:10 to 11:12 Medication Entry - Fibrillation, atrial (427.31), Edema (782.3) On 19-Aug-2012 [facility] 17:29 to 18:11 Medication Entry - Encounter for long-term (current) use of anticoagulants ( V58.61), Fibrillation, atrial (427.31), Diabetes mellitus (250.00) On 2011 [facility] 17:44 to 17:53 Office Visit - 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), Inflamed seborrheic keratosis (702.11), Hyperglycemia (790.29), Encounter for long-term (current) use of anticoagulants (V58.61), Fibrillation, atrial (427.31) On 01-Aug-2012 Encounter Reason: Follow up for chronic condition - The patient feels well with minor complaints (here today for a 3 month follow up with Dr. Romero ) .[facility] 09:34 to 10:39 Medication Entry - Encounter for long-term (current) use of anticoagulants ( V58.61) On 31-Jul-2012 [facility] 18:21 to 18:22 Historical Summary On 31-Jul-2012 [facility] 11:40 to 11:42 Lab entry only - Encounter for long-term (current) use of anticoagulants ( V58.61) On 23-Jun-2012 [facility] 18:47 to 18:52 Lab entry only - Elevated PSA (790.93), Encounter for long-term (current) use of anticoagulants (V58.61) On 23-Jun-2012 [facility] 15:48 to 15:53 Office Visit - Adjustment disorder with depressed mood (309.0), Encounter for long-term (current) use of anticoagulants (V58.61), Elevated PSA (790.93) On Encounter Reason: Follow up for chronic condition - The patient feels well with minor complaints (here for a 6 week follow up visit do to a new medication but did not start the medication).[facility] 11:19 to 13: 39 Historical Summary On 30-Apr-2012 [facility] 11:50 to 11:52 Lab entry only - Encounter for long-term (current) use of anticoagulants ( V58.61) On 28-Apr-2012 [facility] 17:23 to 17:26 Lab entry only - Elevated PSA (790.93), Encounter for long-term (current) use of anticoagulants (V58.61) On 28-Apr-2012 [facility] 14:19 to 14:22 Office Visit - [...] , had lab done prior to appt today).[facility] Lab entry only - Edema (782.3), Hyperglycemia (790.29), Encounter for long- term (current) use of anticoagulants (V58.61) On [facility] 11:06 to 11:14 Lab entry only - Elevated PSA (790.93), Fibrillation, atrial (427.31), Edema ( 782.3) On [facility] 09:02 to 09:05 Lab entry only - Encounter for long-term (current) use of anticoagulants ( V58.61) On [facility] 16:44 to 16:45 Medication Entry On 26-Oct-2011 [facility] 13:30 to 13:32 Lab entry only - Elevated PSA (790.93) On 23-Oct-2011 [facility] 11:01 to 11:04 Lab entry only - Encounter for long-term (current) use of anticoagulants ( V58.61), Low testosterone (257.2) On 17-Oct-2011 [facility] 10:15 to 10:17 Medication Entry - Fibrillation, atrial (427.31) On 04-Oct-2011 [facility] 09:26 to 09:38 Medication Entry - Fibrillation, atrial (427.31), Edema (782.3), Encounter for long-term (current) use of anticoagulants (V58.61), Benign prostatic hypertrophy without lower urinary tract symptoms (LUTS) (600.00) On 02-Oct-2011 [facility] 18:56 to 19:02 Medication Entry - Encounter for long-term (current) use of anticoagulants ( V58.61), Fibrillation, atrial (427.31), Edema (782.3) On 26-Sep-2011 [facility] 11:06 to 11:11 Medication Entry - Fibrillation, atrial (427.31), Encounter for long-term ( current) use of anticoagulants (V58.61) On 24-Sep-2011 [facility] 10:41 to 10:49 Lab entry only - Low testosterone (257.2) On 10-Aug-2011 [facility] 13:03 to 13:05 Lab entry only - Hyperglycemia (790.29), Encounter for long-term (current) use of anticoagulants (V58.61), Fibrillation, atrial (427.31) On 08-Aug-2011 [facility] 13:27 to 13:29 Office Visit - [...] he 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." [facility] Historical Summary On 06-Aug-2011 [facility] 12:22 to 12:24 Medication Entry - Fibrillation, atrial (427.31) On 05-Jun-2011 [facility] 08:54 to 08:59 Lab entry only - Encounter for long-term (current) use of anticoagulants ( V58.61) On 15-May-2011 [facility] 18:48 to 18:50 Office Visit - [...] up is diabetes, hypertension, cardiovascular disorder and other.[facility] Medication Entry - Benign prostatic hypertrophy without lower urinary tract symptoms (LUTS) (600.00) On 19-Apr-2011 [facility] 08:49 to 08:51 Lab entry only - Benign prostatic hypertrophy without lower urinary tract symptoms (LUTS) (600.00) On 10-Apr-2011 [facility] 15:15 to 15:19 Office Visit - [...] seeing dr. boswell the middle of ). [facility] Historical Summary On [facility] 16:05 to 16:18 Lab entry only - Encounter for long-term (current) use of anticoagulants ( V58.61) On [facility] 17:34 to 17:36 Lab entry only - Encounter for long-term (current) use of anticoagulants ( V58.61), Elevated PSA (790.93) On [facility] 09:42 to 09:43 Lab entry only - Encounter for long-term (current) use of anticoagulants ( V58.61) On 24-Nov-2010 [facility] 08:55 to 08:57 Lab entry only - Encounter for long-term (current) use of anticoagulants ( V58.61) On 20-Oct-2010 [facility] 14:42 to 14:46 Historical Summary - Encounter for long-term (current) use of anticoagulants ( V58.61) On 13-Sep-2010 [facility] 10:53 to 10:59 Historical Summary 12-Sep-2010 to 13-Sep-2010 [facility] Lab entry only - Encounter for long-term (current) use of anticoagulants ( V58.61) On 14-Aug-2010 [facility] 17:44 to 17:49 Historical Summary - Elevated PSA (790.93) 09-Aug-2010 to 15-Aug-2010 [facility] Lab entry only - Encounter for long-term (current) use of anticoagulants ( V58.61) 27-Jun-2010 to 28-Jun-2010 [facility] Lab entry only - Encounter for long-term (current) use of anticoagulants ( V58.61) On 26-Jun-2010 [facility] 16:21 to 22:23 Insurance Vijay Yuan; a guarantorMedicare [employer] [facility] [employer]
--- OUTSIDE RECORDS SUMMARY | 2017-10-22 17:59 | External Medical Summary | Continuity of Care Document ---
:1940 Author Organization [facility], [place], [facility] Address [address] [place] [address] Phone Care Team Providers Name Role Phone [...] Prevnar (PCV13)FOR MEDICARE USE ONLY Pneumovax injection 82590 (V03.82) Status: Active Renal lithiasis (592.0, N20.0) [...] 100 days Quantity: 100 {Box} Refills: 4 Ordered:10-Dec-2014 James Romero MD Start 10-Dec-2014 Active Comments:dx 250.00 TRUETEST TEST (In Vitro [...] Comments:started on 10/17/13 after being dismissed from [facility] for kidney stone by cac CITALOPRAM [...] dx kidney stone from being discharged from [facility] testrone cream 10% apply 0.5ml daily [...] appt as scheduled Ordered:28-Oct-2014 CAROTID BILATERAL US (70298) Completed:14-Sep-2014 Comments: Verbal order from Dr. James Romero Follow up in 6 months Ordered:12-Aug-2014 PREVNAR 13 VALENT PNEUMOCOCCAL Completed:12-Aug-2014 VACCINE (11442) ADMINISTRATION OF PNEUMOCOCCAL Ordered:12-Aug-2014 CONJUGATE VACCINE (G0009) How to access health information Completed:12-Aug-2014 online Follow up in 6 months Ordered: Follow up in 2 months Ordered:26-Oct-2013 ADMIN INFLUENZA VIRUS VAC: FLU VACC Completed:26-Oct-2013 PRSV FREE INC ANTIG (43182) ADMINISTRATION OF INFLUENZA VIRUS Ordered:26-Oct-2013 VACCINE (G0008) Follow up in 6 months Ordered:30-Apr-2013 Follow up - Keep appt as scheduled Ordered:02-Jan-2013 Follow up in 6 months Ordered:30-Oct-2012 Follow up in 3 months Ordered:01-Aug-2012 Follow up in 3 months Ordered:01-May-2012 Follow up in 6 weeks Ordered: ADMINISTRATION OF INFLUENZA VIRUS Ordered:14-May-2011 VACCINE (G0008) FLU VACC PRSV FREE INC ANTIG Completed:14-May-2011 (09229) Follow up in 2 months Ordered:14-May-2011 Follow up in 2 months Ordered: Annual Eye Exam Completed:22-Nov-2008 Colonoscopy, Screening Completed: Colonoscopy, Screening Completed:06-Oct-2014 Flu Vaccine Completed:26-Oct-2013 Flu Vaccine Completed:06-Jun-2012 Comments: [facility] Flu Vaccine Completed:14-May-2011 Comments: high dose Pneumovax Completed:2008 13 Completed:12-Aug-2014 PSA Completed:28-Apr-2012 Comments: (16.45) PSA Completed:10-Apr-2011 Comments: (5.95) PSA Completed:23-Jun-2012 Comments: (8.05) PSA Completed:14-Oct-2012 Comments: (8.11) PSA Completed: Comments: (5.60) PSA Completed:15-Sep-2013 Comments: (5.40) PSA Completed: Comments: (6.15) PSA Completed:24-Aug-2014 Comments: (7.11) Immunization Name Dates Details Fluzone Administered on:14-May-2011 Comments: Site: Deltoid (Left); high dose Lot #: [id number] Influenza, preserv. free, enhanced immunogncty, IM Administered on:2013 Comments: Site: Deltoid (Left) Lot #: [id number] Pneumococcal conjugate vaccine, 13 valent, IM Administered on:12-Aug-2014 Comments: Site: Deltoid (Left) Lot #: [id number] Social History Name Dates Details Tobacco use: [...] Comments: The left neck Final 10:36 SINGLE (20244) lesion was removed and also the left [...] not sent to pathology. 10:35 PUNCH BIOPSY (07652) Comments: After Final FIRST BIOPSY cleansing the [...] a artifical heart valve? No 10:48 ([facility]) (40834) 9. Saturday Dosage 7.5 mg (Normal) 8. [...] order include: Draw Charge[i], Protime & INR (35209) Draw Drawn (Normal) 29-Nov-2014 PT (PROTHROMBIN TIME) Comments: Items in this order include: Draw Charge[i], Protime & INRDoes patient have a artifical heart valve? No 10:28 ([facility]) (67444) 9. Saturday Dosage 5.0 mg (Normal) 8. [...] order include: Draw Charge[i], Protime & INR (99965) Draw Drawn (Normal) 21-Sep-2014 PT (PROTHROMBIN TIME) Comments: Items in this order include: Draw Charge[i], Protime & INRDolynn patient have a artifical heart valve? No 10:08 ([facility]) (87170) 9. Saturday Dosage 5.0 mg (Normal) 7. [...] order include: Draw Charge[i], Protime & INR (43402) Draw Drawn (Normal) 24-Aug-2014 Routine Venipuncture Comments: Items in this order include: Protime & INR, Draw Charge[i] 09:59 (19699) Draw Drawn (Normal) 09:59 PT (PROTHROMBIN TIME) Comments: Items in this order include: Protime & INR, Draw Charge[i]INR value > 3.0 given to Estella by Beny Buckley patient have a artifical heart valve? No ([facility]) (72176) 9. Saturday Dosage 7.5 mg (Normal) 7. [...] Panel, Hemoglobin A1C, Urine Microalbumin, CBC ONE! (96177) manual diff Not Indicated (Normal) mpv 9.60 [...] Metabolic Panel, Hemoglobin A1C, Urine Microalbumin, CBC (16579) U A:C RATIO <30 mg/g Normal Range: <30 mg/g Normal (Normal) U CREAT 200 mg/dL (Normal) Range: 10-300 U ALB 80 mg/L (Abnormal) Range: 10 mg/L 09:59 HEMOGLOBIN GLYCLATED Comments: Items in this order include: Digoxin , PSA, Basic Metabolic Panel, Hemoglobin A1C, Urine Microalbumin, CBC (HGB A1C) (84646) A1C 5.9 % (Normal) Range: 4.6-6.2 Comments: Increased risk of diabetes. 09:59 [facility] (80189) Comments: Items in this order include: Digoxin, [...] Panel, Hemoglobin A1C, Urine Microalbumin, CBC ANTIGEN) (21956) PSA 7.11 ng/mL (Abnormal) Range: 0.00-4.00 09:59 DIGOXIN (81967) Comments: Items in this order include: Digoxin, PSA , Basic Metabolic Panel, Hemoglobin A1C, Urine Microalbumin, CBCTime of Last Dose? 08/23/2014 8:00 AMDosage? 0.25 DIG 0.36 ng/mL (Abnormal) Range: 0.90-2.00 05-Aug-2014 PT (PROTHROMBIN TIME) Comments: Items in this order include: Draw Charge[i], Protime & INRDoes patient have a artifical heart valve? No 10:48 ([facility]) (56672) 8. Saturday Dosage 7.5 mg (Normal) 9. [...] order include: Draw Charge[i], Protime & INR (12502) Draw Drawn (Normal) 03-Jun-2014 PT (PROTHROMBIN TIME) Comments: Items in this order include: Draw Charge[i], Protime & INRDoes patient have a artifical heart valve? No 13:56 ([facility]) (30178) 9. Saturday Dosage 7.5 mg (Normal) 8. [...] order include: Draw Charge[i], Protime & INR (94482) Draw Drawn (Normal) PT (PROTHROMBIN TIME) Comments: Items in this order include: Protime & INRDoes patient have a artifical heart valve? No 14:25 ([facility]) (13487) 9. day Dosage 5.0 mg (Normal) 8. [...] this order include: Draw Charge[i], PSA ANTIGEN) (30454) PSA 6.15 ng/mL (Abnormal) Range: 0.00-4.00 14:25 Routine Venipuncture Comments: A copy of this report will be faxed to: Bettie Boswell in this order include: Draw Charge[i], PSA (92427) Draw Drawn (Normal) HEMOGLOBIN GLYCLATED Comments: Items in this order include: Hemoglobin A1C, Draw Charge[i], Comprehensive Metabolic Panel, Uric Acid 15:06 (HGB A1C) (26428) A1C 5.7 % (Normal) Range: 4.6-6.2 15:06 CMP (91606) Comments: Items in this order include: Hemoglobin [...] (Normal) Range: 135-145 15:06 URIC ACID BLOOD (79149) Comments: Items in this order include: Hemoglobin A1C, Draw Charge[i], Comprehensive Metabolic Panel, Uric Acid Uric Acid 8.0 mg/dL (Abnormal) Range: 3.6-7.7 15:06 Routine Venipuncture Comments: Items in this order include: Hemoglobin A1C, Draw Charge[i], Comprehensive Metabolic Panel, Uric Acid (57039) Draw Drawn (Normal) PT (PROTHROMBIN TIME) Comments: Items in this order include: Draw Charge[i], Protime & INRDoes patient have a artifical heart valve? No 14:27 ([facility]) (58132) 8. Saturday Dosage 5.0 mg (Normal) 9. [...] order include: Draw Charge[i], Protime & INR (70785) Draw Drawn (Normal) 26-Oct-2013 Draw Charge[i] Comments: Items in this order include: Basic Metabolic Panel, Draw Charge[i] 17:08 Draw Drawn (Normal) 17:05 [facility] (77538) Comments: Items in this order include: Basic [...] patient have a artifical heart valve? No ([facility]) (26163) 9. Saturday Dosage 5.0 mg (Normal) 7. [...] order include: Draw Charge[i], Protime & INR (19469) Draw Drawn (Normal) 15-Sep-2013 PSA (PROSTATE SPECIFIC Comments: A copy of this report will be faxed to: Bettie Boswell in this order include: A COPY TO [eliana PSAPSA allowed more than once a year due to being a Diagonistic PSA not a screening PSA 11:05 ANTIGEN) (43124) PSA 5.40 ng/mL (Abnormal) Range: 0.00-4.00 11:05 [...] this order include: Comprehensive Metabolic Panel, Hemoglobin E1CTmwa Hgb A1C was ran 99 Days ago. Check by MARGARITA 10:38 (HGB A1C) (31053) A1C 5.9 % (Normal) Range: 4.6-6.2 Comments: Increased risk of diabetes. 10:38 [facility] (60852) Comments: Items in this order include: Comprehensive Metabolic Panel, Hemoglobin [id number] Hgb A1C was ran 99 Days ago. [...] patient have a artifical heart valve? No ([facility]) (75449) 9. Saturday Dosage 5.0 (cycle of 5,5,7.5 [...] order include: Draw Charge[i], Protime & INR (04041) Draw Drawn (Normal) 10:38 DIGOXIN (22276) Comments: Items in this order include: DigoxinTime of Last Dose? 08/06/2013 8:30 AMDosage? 0.25 mg daily DIG 0.48 ng/mL (Abnormal) Range: 0.90-2.00 30-Apr-2013 HEMOGLOBIN GLYCLATED Comments: Items in this order include: Comprehensive Metabolic Panel, CBC, Hemoglobin [id number] Hgb A1C was ran 225 Days ago. Check by ms 11:58 (HGB A1C) (06619) A1C 6.1 % (Normal) Range: 4.6-6.2 11:58 CBC MALE- ORDER THIS Comments: Items in this order include: Comprehensive Metabolic Panel, CBC, Hemoglobin [id number] Hgb A1C was ran 225 Days ago. Check by ms ONE! (15484) manual diff Not Indicated (Normal) mpv 4.88 [...] 6.15 10*3/uL (Normal) Range: 4.50-10.50 11:58 CMP (44391) Comments: Items in this order include: Comprehensive Metabolic Panel, CBC, Hemoglobin [id number] Hgb A1C was ran 225 Days ago. [...] patient have a artifical heart valve? No ([facility]) (42773) 4. Saturday Dosage Repeat mg (Normal) 3. Saturday Dosage 7.5 mg (Normal) 2. Saturday Dosage 5.0 mg (Normal) 1. Saturday Dosage 5.0 mg (Normal) INR 2.60 (Normal) PT 26.8 s (Abnormal) Range: 10.4-12.4 -March-2013 PT (PROTHROMBIN TIME) Comments: Items in this order include: Draw Charge[i], Protime & INRDoes patient have a artifical heart valve? No 15:12 ([facility]) (16759) 5. Dosage Repeat mg (Normal) 4. Saturday Dosage 5.0 mg (Normal) 3. Saturday Dosage 5.0 mg (Normal) 2. Saturday Dosage 7.5 mg (Normal) INR 2.31 (Normal) PT 24.0 s (Abnormal) Range: 10.4-12.4 15:12 Routine Venipuncture Comments: Items in this order include: Draw Charge[i], Protime & INR (23546) Draw Drawn (Normal) PSA (PROSTATE SPECIFIC Comments: A copy of this report will be faxed to: Bettie Boswell in this order include: PSA, Draw Charge[i]PSA allowed more than once a year due to being a Diagonistic PSA not a screening PSA 10:00 ANTIGEN) (27688) PSA 5.60 ng/mL (Abnormal) Range: 0.00-4.00 10:00 [...] patient have a artifical heart valve? No ([facility]) (41527) 3. Saturday Dosage Repeat mg (Normal) 2. Saturday Dosage 7.5 mg (Normal) 1. Saturday Dosage 5.0 mg (Normal) INR 2.64 (Normal) PT 27.2 s (Abnormal) Range: 10.4-12.4 10:09 Routine Venipuncture Comments: Items in this order include: Draw Charge[i], Protime & INR (10210) Draw Drawn (Normal) 16-Dec-2012 PT (PROTHROMBIN TIME) Comments: Items in this order include: Draw Charge[i], Protime & INRDoes patient have a artifical heart valve? No 10:46 ([facility]) (94671) 4. Saturday Dosage Repeat mg (Normal) 3. Saturday Dosage 5.0 mg (Normal) 2. Saturday Dosage 7.5 mg (Normal) INR 2.13 (Normal) PT 22.2 s (Abnormal) Range: 10.4-12.4 10:46 Routine Venipuncture Comments: Items in this order include: Draw Charge[i], Protime & INR (35340) Draw Drawn (Normal) 26-Nov-2012 Routine Venipuncture Comments: Items in this order include: Protime & INR, Draw Charge[i] 15:05 (65651) Draw Drawn (Normal) 15:05 PT (PROTHROMBIN TIME) Comments: Items in this order include: Protime & INR, Draw Charge[i]Does patient have a artifical heart valve? No ([facility]) (79213) 4. Saturday Dosage 5.0 Repeat mg (Normal) 3. Saturday Dosage 5.0 mg (Normal) 2. Saturday Dosage 7.5 mg (Normal) INR 1.34 (Normal) PT 14.4 s (Abnormal) Range: 10.4-12.4 30-Oct-2012 PT (PROTHROMBIN TIME) Comments: Items in this order include: Draw Charge[i], Protime & INRINR value > 3.0 given to BW by Froy Chávez patient have a artifical heart valve? No 10:38 ([facility]) (40312) 7. Saturday Dosage 7.5 mg (Normal) 6. [...] order include: Draw Charge[i], Protime & INR (48352) Draw Drawn (Normal) 11:33 BMP Comments: Items [...] Dose? 10/29/2012 8:00 PMDosage? 0.25 mg Daily (52999) DIG 1.64 ng/mL (Normal) Range: 0.90-2.00 14-Oct-2012 PSA (PROSTATE SPECIFIC Comments: A copy of this report will be faxed to: Bettie Boswell in this order include: Draw Charge[i], Protime & INR, PSAPSA allowed more than once a year due to being a Diagonistic PSA not a screening PSA 10:25 ANTIGEN) (27060) PSA 8.11 ng/mL (Abnormal) Range: 0.00-4.00 10:25 PT (PROTHROMBIN TIME) Comments: PSA allowed more than once a year due to being a Diagonistic PSA not a screening PSACoumadin dosage=5,5,5,5,7.5 repeatDoes patient have a artifical heart valve? No ([facility]) (88570) 7. Saturday Dosage 7.5 mg (Normal) 6. [...] a Diagonistic PSA not a screening PSA (08864) Draw Drawn (Normal) 12-Sep-2012 PT (PROTHROMBIN TIME) Comments: Items in this order include: Draw Charge[i], Protime & INRDoes patient have a artifical heart valve? No 09:16 ([facility]) (65050) 6. Saturday Dosage Repeat mg (Normal) 5. Dosage 7.5 mg (Normal) 4. Saturday Dosage 5.0 mg (Normal) 3. Saturday Dosage 5.0 mg (Normal) 2. Saturday Dosage 5.0 mg (Normal) 1. Saturday Dosage 5.0 mg (Normal) INR 2.48 (Normal) PT 25.7 s (Abnormal) Range: 10.4-12.4 09:16 Routine Venipuncture Comments: Items in this order include: Draw Charge[i], Protime & INR (50626) Draw Drawn (Normal) 18-Aug-2012 PT (PROTHROMBIN TIME) Comments: Items in this order include: Protime & INRDoes patient have a artifical heart valve? No 11:44 ([facility]) (72754) 7. Saturday Dosage 5.0 mg (Normal) 6. [...] Days ago. Check by KB (HGB A1C) (70507) A1C 6.2 % (Normal) Range: 4.6-6.2 Comments: High risk of diabetes. 31-Jul-2012 PT (PROTHROMBIN TIME) Comments: Items in this order include: Draw Charge[i], Protime & INRINR value > 3.0 given to Estella by Beny Buckley patient have a artifical heart valve? No 13:32 ([facility]) (17147) 7. day Dosage 5.0 mg (Normal) 6. [...] order include: Draw Charge[i], Protime & INR (35005) Draw Drawn (Normal) 23-Jun-2012 PSA (PROSTATE SPECIFIC Comments: A copy of this report will be faxed to: Bettie Boswell in this order include: Draw Charge[i], Protime & INR, PSAPSA allowed more than once a year due to being a Diagonistic PSA not a screening PSA 15:50 ANTIGEN) (02498) PSA 8.05 ng/mL (Abnormal) Range: 0.00-4.00 15:50 PT (PROTHROMBIN TIME) Comments: A copy of this report will be faxed to: Bettie Boswell in this order include: Draw Charge[i], Protime & INR , PSAPSA allowed more than once a year due to being a Diagonistic PSA not a screening ([facility]) (96111) PSADoes patient have a artifical heart valve? [...] a Diagonistic PSA not a screening PSA (45390) Draw Drawn (Normal) 13-May-2012 Draw Charge[i] Comments: [...] results to dr. hema boswell 14:28 ANTIGEN) (01336) PSA 16.45 ng/mL (Abnormal) Range: 0.00-4.00 14:28 PT (PROTHROMBIN TIME) Comments: Coumadin Dosage=5,5,5,7.5 Repeat. Took 7.5 on 04-27-12. ([facility]) (65181) 5. Dosage 7.5 Repeat mg (Normal) 4. Saturday Dosage 5.0 mg (Normal) 3. Saturday Dosage 5.0 mg (Normal) 2. Saturday Dosage 5.0 mg (Normal) 1. Saturday Dosage 7.5 mg (Normal) INR 2.17 (Normal) PT 22.7 s (Abnormal) Range: 10.4-12.4 14:28 Routine Venipuncture (22845) Draw Drawn (Normal) 13-May-2012 PSA (PROSTATE SPECIFIC Comments: A copy of this report will be faxed to: Bettie Boswell in this order include: PSA, Draw Charge[i]PSA allowed more than once a year due to being a Diagonistic PSA not a screening PSA 09:20 ANTIGEN) (54158) PSA 11.30 ng/mL (Abnormal) Range: 0.00-4.00 TSH (THYROID Comments: Items in this order include: TSH 16:40 STIMULATING HORMONE) (56047) TSH 1.36 uIU/ml (Normal) Range: 0.34-5.60 14:50 PT (PROTHROMBIN TIME) Comments: Items in this order include: Draw Charge[i], Basic Metabolic Panel, Hemoglobin A1C, Protime & INRLast Hbg A1C was ran 218 Days ago. Check by DL ([facility]) (01113) 5. Dosage Repeat mg (Normal) 4. Saturday [...] ran 218 Days ago. Check (HGB A1C) (00345) by DLplease draw enough blood so if [...] ran 218 Days ago. Check by DL (69135) Draw Drawn (Normal) DIGOXIN, DRUG ASSAY Comments: Items in this order include: CBC, Comprehensive Metabolic Panel, CKI, Digoxin, Draw Charge[i] 09:08 (59635) DIG 0.38 ng/mL (Abnormal) Range: 0.90-2.00 09:08 CK Comments: Items in this order include: CBC, Comprehensive Metabolic Panel, CKI, Digoxin, Draw Charge[i] CKI 143 U/L (Normal) Range: 39-308 09:08 CMP (45556) Comments: Items in this order include: CBC, [...] Metabolic Panel, CKI, Digoxin, Draw Charge[i] ONE! (30221) manual diff Not Indicated (Normal) mpv 6.84 [...] order include: Protime & INR, Draw Charge[i] (78565) Draw Drawn (Normal) 16:45 PT (PROTHROMBIN TIME) Comments: Items in this order include: Protime & INR, Draw Charge[i]Coumadin doasage=5,5,7.5 Repeat ([facility]) (07611) 7. Saturday Dosage 5.0 mg (Normal) 6. [...] order include: Draw Charge[i], PSA 11:11 ANTIGEN) (94381) PSA 6.92 ng/mL (Abnormal) Range: 0.00-4.00 11:11 Routine Venipuncture Comments: A copy of this report will be faxed to: Bettie Boswell in this order include: Draw Charge[i], PSA (44722) Draw Drawn (Normal) 17-Oct-2011 Routine Venipuncture 10:18 (51147) Draw Drawn (Normal) 10:18 TESTOSTERONE, FREE, Comments: Items in this order include: Protime & INR, Draw Charge[i], TESTOSTERONE, FREE, BIOAVAILABLE, AND TOTAL, LC/MS/ MSTesting performed at: [place], [address] [address] [place], [place], [address], Detacher: Michael Chávez [facility] TOTAL, LC/MS/MS ALBUMIN,SERUM 4.4 [...] and benefits counseling. 10:18 PT (PROTHROMBIN TIME) ([facility]) (39174) 7. Saturday Dosage 5.0 mg (Normal) 6. [...] Panel, Hemoglobin A1C, Draw Charge[i] (HGB A1C) (10465) A1C 6.1 % (Normal) Range: 4.6-6.2 13:29 [...] (Normal) Range: 135-145 13:29 DIGOXIN, DRUG ASSAY (77415) DIG 0.85 ng/mL (Abnormal) Range: 0.90-2.00 07-Aug-2011 TESTOSTERONE, FREE, Comments: Items in this order include: TESTOSTERONE, FREE, BIOAVAILABLE, AND TOTAL, LC/MS/MSTesting performed at: [place], [address] [address] , [place] , [address], [place] 12:53 WEAKLY BOUND AND TOTAL ratory Director: Michael Chávez MD.[facility] (13674) ALBUMIN,SERUM 4.4 g/dL (Normal) Range: 3.6-5.1 SEX [...] INR, Draw Charge[i]no change in coumadin dose ([facility]) (18625) 7. Saturday Dosage 7.5 mg (Normal) 6. [...] Metabolic Panel, Protime & INR, Draw Charge[i] ([facility]) (24926) 7. Saturday Dosage 5.0 mg (Normal) 5. [...] Boswell in this order include: PSA ANTIGEN) (98119) PSA 5.95 ng/mL (Abnormal) Range: 0.00-4.00 CBC-MALE- ORDER THIS Comments: Items in this order include : Hemoglobin A1C, Comprehensive Metabolic Panel, CBC 11:56 ONE! (03467) manual diff Not Indicated (Normal) mpv 7.65 [...] 6.24 10*3/uL (Normal) Range: 4.50-10.50 11:56 CMP (46945) Comments: Items in this order include: Hemoglobin [...] this order include: Digoxin, Draw Charge[i] 15:17 (19995) DIG 1.18 ng/mL (Normal) Range: 0.90-2.00 HEMOGLOBIN GLYCLATED Comments: Items in this order include: Hemoglobin A1C, Comprehensive Metabolic Panel, CBC 11:56 (HGB A1C) (95992) A1C 6.6 % (Abnormal) Range: 4.6-6.2 Comments: Consistent with diabetes. 13:48 PT (PROTHROMBIN TIME) Comments: change to coumadin 5mg x 2 day then 7.5mg x1 repeat the cycle; Items in this order include: Protime & INR, Draw Charge[i]cyclechange to coumadin 5mg x 2 day then 7.5mg x1 repeat the ([facility]) (01744) 6. Saturday Dosage 7.5 mg (Normal) 7. [...] & INR, PSA, Draw Charge[i] 09:43 ANTIGEN) (17584) PSA 5.84 ng/mL (Abnormal) Range: 0.00-4.00 09:43 PT (PROTHROMBIN TIME) Comments: no change in coumadin; no change in coumadin ([facility]) (83527) 7. Saturday Dosage 7.5 mg (Normal) 6. Saturday Dosage 5.0 mg (Normal) 5. Dosage 7.5 mg (Normal) 4. Saturday Dosage 5.0 mg (Normal) 3. Saturday Dosage 5.0 mg (Normal) 1. Saturday Dosage 5.0 mg (Normal) 2. Saturday Dosage 7.5 mg (Normal) INR 3.45 (Normal) PT 32.9 s (Abnormal) Range: 10.4-12.4 23-Nov-2010 PT (PROTHROMBIN TIME) 10:03 ([facility]) (08933) 6. Saturday Dosage 7.5 mg (Normal) 7. Saturday Dosage 5 mg (Normal) 1. Saturday Dosage 5 mg (Normal) 2. Saturday Dosage 7.5 mg (Normal) 3. Saturday Dosage 5 mg (Normal) 4. Saturday Dosage 7.5 mg (Normal) 5. Dosage 5 mg (Normal) INR 2.16 (Normal) PT 21.0 s (Abnormal) Range: 10.4-12.4 19-Oct-2010 PT (PROTHROMBIN TIME) 15:16 ([facility]) (29361) 6. Saturday Dosage 5 mg (Normal) 7. Saturday Dosage 7.5 mg (Normal) 3. Saturday Dosage 7.5 mg (Normal) 4. Saturday Dosage 5 mg (Normal) 5. Dosage 7.5 mg (Normal) 1. Saturday Dosage 7.5 mg (Normal) 2. Saturday Dosage 5 mg (Normal) INR 2.13 (Normal) PT 20.7 s (Abnormal) Range: 10.4-12.4 12-Sep-2010 PT (PROTHROMBIN TIME) 11:03 ([facility]) (29267) INR 2.57 (Normal) PT (PROTHROMBIN TIME) 24.8 s (Abnormal) Range: 11.5-13.5 22-Aug-2010 PT (PROTHROMBIN TIME) 13:41 ([facility]) (45196) 09-Aug-2010 PSA, MEDICARE (G0103) Comments: please fax to dr hema boswell 09:54 PSA (Medicare) 4.83 ng/mL (Abnormal) Range: 0 - 4 09:34 PT (PROTHROMBIN TIME) ([facility]) (13087) INR 2.68 (Normal) PT (PROTHROMBIN TIME) 25.8 s (Abnormal) Range: 11.5-13.5 27-Jun-2010 PT (PROTHROMBIN TIME) 08:38 ([facility]) (87292) 26-Jun-2010 PT (PROTHROMBIN TIME) 16:21 ([facility]) (34169) INR 1.89 (Normal) PT (PROTHROMBIN TIME) 18.4 s (Abnormal) Range: 11.5-13.5 Treatment Plan PT (PROTHROMBIN TIME) ([facility]) (14469); Ordered: 12/27/2014Routine Venipuncture ( 87566); Ordered: 12/27/2014 Advance Directives Encounters Lab entry only - Encounter for long-term (current) use of anticoagulants ( V58.61 | Z79.01) On 29-Nov-2014 [facility] [place] 12:31 to 15:09 Medication Entry - Diabetes mellitus (250.00 | E11.9) On 12-Nov-2014 [facility] [place] 11:46 to 11:53 Medication Entry - Cellulitis, leg (682.6 | L03.119) On 11-Nov-2014 [facility] [place] 09:48 to 10:00 Office Visit - Gout [...] "Transition into care": He feels things are improved.[facility] [place] Historical Summary On 27-Oct-2014 [facility] [place] 15:03 to 15:08 Lab entry only - Fibrillation, atrial (427.31), Encounter for long-term ( current) use of anticoagulants (V58.61 | Z79.01) On 18-Oct-2014 [facility] [place] 17:08 to 17:09 Medication Entry - Gout (274.9 | M10.9) On 12-Oct-2014 [facility] [place] 16:17 to 16:22 Lab entry only - Encounter for long-term (current) use of anticoagulants ( V58.61 | Z79.01) On 21-Sep-2014 [facility] [place] 15:31 to 15:33 Radiology Visit - Carotid stenosis (433.10 | I65.29) On 14-Sep-2014 [facility] [place] 09:33 to 09:36 Lab entry only - Encounter for long-term (current) use of anticoagulants ( V58.61 | Z79.01) On 24-Aug-2014 [facility] [place] 16:31 to 16:34 Office Visit - Health education (V65.40 | Z71.9), Prevnar (PCV13)FOR MEDICARE USE ONLY Pneumovax injection (V03.82) 85613, Encounter for long-term ( current) use of [...] lifeline screening. He mentions the "discoloration" of ankles.[facility] [place] Historical Summary On 11-Aug-2014 [facility] [place] 16:16 to 16:19 Lab entry only - Fibrillation, atrial (427.31), Encounter for long-term ( current) use of anticoagulants (V58.61 | Z79.01) On 06-Aug-2014 [facility] [place] 16:41 to 16:43 Medication Entry - Benign essential hypertension (401.1 | I10) On 21-Jun-2014 [facility] [place] 11:12 to 11:14 Lab entry only - Encounter for long-term (current) use of anticoagulants ( V58.61 | Z79.01) On 03-Jun-2014 [facility] [place] 16:13 to 16:15 Lab entry only - Encounter for long-term (current) use of anticoagulants ( V58.61 | Z79.01) On [facility] [place] 13:22 to 13:23 Lab entry only - Elevated PSA (790.93), Encounter for long-term (current) use of anticoagulants (V58.61 | Z79.01) On [facility] [place] 14:27 to 14:28 Office Visit - Foot [...] thing in the morning and on stairs. [facility] [place] Historical Summary On 28-Dec-2013 [facility] [place] 12:26 to 12:29 Medication Entry - Encounter for long-term (current) use of anticoagulants ( V58.61 | Z79.01), Diabetes mellitus (250.00 | E11.9), Fibrillation, atrial ( 427.31) On 03-Nov-2013 [facility] [place] 09:01 to 11:53 Medication Entry - Fibrillation, atrial (427.31), Diabetes mellitus (250.00 | E11.9) On 30-Oct-2013 [facility] [place] 15:55 to 16:00 Lab entry only - Encounter for long-term (current) use of anticoagulants ( V58.61 | Z79.01) On 27-Oct-2013 [facility] [place] 17:57 to 17:59 Office Visit - Need [...] M.D. after being in the hospital [facility] 10/[facility]/13 & discharged on 10/17/13 dx jasmeet diaz, inr was done prior to visit.) . Note for "Transition into care": He passed a kidney stone a week ago.[facility] [place] Historical Summary On 23-Oct-2013 [facility] [place] 14:42 to 14:45 Lab entry only - Encounter for long-term (current) use of anticoagulants ( V58.61 | Z79.01) On 20-Oct-2013 [facility] [place] 16:31 to 16:33 Lab entry only - Encounter for long-term (current) use of anticoagulants ( V58.61 | Z79.01) On 16-Sep-2013 [facility] [place] 10:14 to 10:15 Lab entry only - Elevated PSA (790.93) On 15-Sep-2013 [facility] [place] 11:11 to 11:12 Lab entry only - Encounter for long-term (current) use of anticoagulants ( V58.61 | Z79.01) On 07-Aug-2013 [facility] [place] 14:32 to 14:33 Lab entry only - Benign essential hypertension (401.1 | I10), Diabetes mellitus (250.00 | E11.9) On 07-Aug-2013 [facility] [place] 11:18 to 11:19 Lab entry only - Encounter for long-term (current) use of anticoagulants ( V58.61 | Z79.01) On 01-May-2013 [facility] [place] 10:33 to 10:38 Office Visit - Diabetes [...] He did miss some meds while he traveled.[facility] [place] Historical Summary On 29-Apr-2013 [facility] [place] 11:46 to 11:49 Lab entry only - Encounter for long-term (current) use of anticoagulants ( V58.61 | Z79.01) On [facility] [place] 16:39 to 16:42 Lab entry only - Encounter for long-term (current) use of anticoagulants ( V58.61 | Z79.01) On [facility] [place] 19:40 to 19:42 Lab entry only - Elevated PSA (790.93) On [facility] [place] 12:03 to 12:07 Office Visit - Laryngotracheobronchitis [...] for "Cough": He has not had an antibiotic.[facility] [place] Lab entry only - Encounter for long-term (current) use of anticoagulants ( V58.61 | Z79.01) On 16-Dec-2012 [facility] [place] 18:21 to 18:23 Lab entry only - Encounter for long-term (current) use of anticoagulants ( V58.61 | Z79.01) On 27-Nov-2012 [facility] [place] 16:52 to 16:53 Lab entry only - Encounter for long-term (current) use of anticoagulants ( V58.61) On 26-Nov-2012 [facility] [place] 15:04 to 15:05 Office Visit - Encounter [...] first thing in the morning and on stairs.[facility] [place] Historical Summary On 29-Oct-2012 [facility] [place] 16:15 to 16:17 Lab entry only - Encounter for long-term (current) use of anticoagulants ( V58.61) On 15-Oct-2012 [facility] [place] 09:51 to 09:57 Lab entry only - Encounter for long-term (current) use of anticoagulants ( V58.61), Elevated PSA (790.93) On 14-Oct-2012 [facility] [place] 10:25 to 10:26 Lab entry only - Encounter for long-term (current) use of anticoagulants ( V58.61) On 12-Sep-2012 [facility] [place] 13:44 to 13:45 Medication Entry - Edema (782.3), Fibrillation, atrial (427.31) On 20-Aug-2012 [facility] [place] 11:10 to 11:12 Medication Entry - Fibrillation, atrial (427.31), Edema (782.3) On 19-Aug-2012 [facility] [place] 17:29 to 18:11 Medication Entry - Encounter for long-term (current) use of anticoagulants ( V58.61), Fibrillation, atrial (427.31), Diabetes mellitus (250.00) On 2011 [facility] [place] 17:44 to 17:53 Office Visit - 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), Inflamed seborrheic keratosis (702.11), Hyperglycemia (790.29), Encounter for long-term (current) use of anticoagulants (V58.61), Fibrillation, atrial (427.31) On 01-Aug-2012 Encounter Reason: Follow up for chronic condition - The patient feels well with minor complaints (here today for a 3 month follow up with Dr. Romero ) .[facility] [place] 09:34 to 10:39 Medication Entry - Encounter for long-term (current) use of anticoagulants ( V58.61) On 31-Jul-2012 [facility] [place] 18:21 to 18:22 Historical Summary On 31-Jul-2012 [facility] [place] 11:40 to 11:42 Lab entry only - Encounter for long-term (current) use of anticoagulants ( V58.61) On 23-Jun-2012 [facility] [place] 18:47 to 18:52 Lab entry only - Elevated PSA (790.93), Encounter for long-term (current) use of anticoagulants (V58.61) On 23-Jun-2012 [facility] [place] 15:48 to 15:53 Office Visit - Adjustment disorder with depressed mood (309.0), Encounter for long-term (current) use of anticoagulants (V58.61), Elevated PSA (790.93) On Encounter Reason: Follow up for chronic condition - The patient feels well with minor complaints (here for a 6 week follow up visit do to a new medication but did not start the medication).[facility] [place] 11:19 to 13: 39 Historical Summary On 30-Apr-2012 [facility] [place] 11:50 to 11:52 Lab entry only - Encounter for long-term (current) use of anticoagulants ( V58.61) On 28-Apr-2012 [facility] [place] 17:23 to 17:26 Lab entry only - Elevated PSA (790.93), Encounter for long-term (current) use of anticoagulants (V58.61) On 28-Apr-2012 [facility] [place] 14:19 to 14:22 Office Visit - Hyperglycemia [...] , had lab done prior to appt today).[facility] [place] Lab entry only - Edema (782.3), Hyperglycemia (790.29), Encounter for long- term (current) use of anticoagulants (V58.61) On [facility] [place] 11:06 to 11:14 Lab entry only - Elevated PSA (790.93), Fibrillation, atrial (427.31), Edema ( 782.3) On [facility] [place] 09:02 to 09:05 Lab entry only - Encounter for long-term (current) use of anticoagulants ( V58.61) On [facility] [place] 16:44 to 16:45 Medication Entry On 26-Oct-2011 [facility] [place] 13:30 to 13:32 Lab entry only - Elevated PSA (790.93) On 23-Oct-2011 [facility] [place] 11:01 to 11:04 Lab entry only - Encounter for long-term (current) use of anticoagulants ( V58.61), Low testosterone (257.2) On 17-Oct-2011 [facility] [place] 10:15 to 10:17 Medication Entry - Fibrillation, atrial (427.31) On 04-Oct-2011 [facility] [place] 09:26 to 09:38 Medication Entry - Fibrillation, atrial (427.31), Edema (782.3), Encounter for long-term (current) use of anticoagulants (V58.61), Benign prostatic hypertrophy without lower urinary tract symptoms (LUTS) (600.00) On 02-Oct-2011 [facility] [place] 18:56 to 19:02 Medication Entry - Encounter for long-term (current) use of anticoagulants ( V58.61), Fibrillation, atrial (427.31), Edema (782.3) On 26-Sep-2011 [facility] [place] 11:06 to 11:11 Medication Entry - Fibrillation, atrial (427.31), Encounter for long-term ( current) use of anticoagulants (V58.61) On 24-Sep-2011 [facility] [place] 10:41 to 10:49 Lab entry only - Low testosterone (257.2) On 10-Aug-2011 [facility] [place] 13:03 to 13:05 Lab entry only - Hyperglycemia (790.29), Encounter for long-term (current) use of anticoagulants (V58.61), Fibrillation, atrial (427.31) On 08-Aug-2011 [facility] [place] 13:27 to 13:29 Office Visit - Fibrillation, [...] he 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." [facility] [place] Historical Summary On 06-Aug-2011 [facility] [place] 12:22 to 12:24 Medication Entry - Fibrillation, atrial (427.31) On 05-Jun-2011 [facility] [place] 08:54 to 08:59 Lab entry only - Encounter for long-term (current) use of anticoagulants ( V58.61) On 15-May-2011 [facility] [place] 18:48 to 18:50 Office Visit - Edema [...] up is diabetes, hypertension, cardiovascular disorder and other.[facility] [place] Medication Entry - Benign prostatic hypertrophy without lower urinary tract symptoms (LUTS) (600.00) On 19-Apr-2011 [facility] [place] 08:49 to 08:51 Lab entry only - Benign prostatic hypertrophy without lower urinary tract symptoms (LUTS) (600.00) On 10-Apr-2011 [facility] [place] 15:15 to 15:19 Office Visit - Elevated [...] seeing dr. boswell the middle of apr.). [facility] [place] Historical Summary On [facility] [place] 16:05 to 16:18 Lab entry only - Encounter for long-term (current) use of anticoagulants ( V58.61) On [facility] [place] 17:34 to 17:36 Lab entry only - Encounter for long-term (current) use of anticoagulants ( V58.61), Elevated PSA (790.93) On [facility] [place] 09:42 to 09:43 Lab entry only - Encounter for long-term (current) use of anticoagulants ( V58.61) On 24-Nov-2010 [facility] [place] 08:55 to 08:57 Lab entry only - Encounter for long-term (current) use of anticoagulants ( V58.61) On 20-Oct-2010 [facility] [place] 14:42 to 14:46 Historical Summary - Encounter for long-term (current) use of anticoagulants ( V58.61) On 13-Sep-2010 [facility] [place] 10:53 to 10:59 Historical Summary 12-Sep-2010 to 13-Sep-2010 [facility] [place] Lab entry only - Encounter for long-term (current) use of anticoagulants ( V58.61) On 14-Aug-2010 [facility] [place] 17:44 to 17:49 Historical Summary - Elevated PSA (790.93) 09-Aug-2010 to 15-Aug-2010 [facility] [place] Lab entry only - Encounter for long-term (current) use of anticoagulants ( V58.61) 27-Jun-2010 to 28-Jun-2010 [facility] [place] Lab entry only - Encounter for long-term (current) use of anticoagulants ( V58.61) On 26-Jun-2010 [facility] [place] 16:21 to 22:23 Insurance Vijay Yuan; gwen guarantorMedicare [employer]erve [employer] Life[employer] Insurance[employer]
--- OUTSIDE RECORDS SUMMARY | 2017-10-22 18:00 | External Medical Summary | Continuity of Care Document ---
:1940 Author Organization [facility] Address [address] [place] [address] Phone Care Team Providers Name Role Phone [...] tract symptoms (LUTS) ( 600.00) Status: Active Bilateral knee pain (719.46, M25.561) [...] Prevnar (PCV13)FOR MEDICARE USE ONLY Pneumovax injection 75629 (V03.82) Status: Active Renal lithiasis (592.0, N20.0) [...] Inactive Comments:04-30-[address] boswell CIPRO, 500MG (Oral Tablet) - Historical Medication 1 two times daily (500 MG) Inactive Comments:started on 10/17/13 after being dismissed from [facility] for kidney stone by gale CITALOPRAM HYDROBROMIDE, 20MG (Oral Tablet) 1 Tablet daily for 30 days Quantity: 30 {Tablet} Refills: 2 Ordered:01-May-2012 Mtmiryam Nohelia Start End 01-May-2012 Inactive Comments:May increase to 2 in 10 days, if able and can refill with 40mg DIGOXIN, 0.25MG (Oral Tablet) 1 Tablet daily for 90 days Quantity: 90 {Tablet} Refills: 4 Ordered:30-Oct-2012 Mtmiryam Dayorickey Start 19-Aug-2012 End 30-Oct-2012 Inactive DILTIAZEM HCL, [...] dx kidney stone from being discharged from [facility] testrone cream 10% apply 0.5ml daily - [...] 1 OR 2 VIEWS Completed: Comments: right (04857) X-RAY EXAM OF BOTH KNEES, Completed: STANDING (00435) How to access health information Completed: online Follow up - Keep appt as scheduled Ordered:28-Oct-2014 CAROTID BILATERAL US (72708) Completed:14-Sep-2014 Comments: Verbal order from Dr. James Romero Follow up in 6 months Ordered:12-Aug-2014 PREVNAR 13 VALENT PNEUMOCOCCAL Completed:12-Aug-2014 VACCINE (01384) ADMINISTRATION OF PNEUMOCOCCAL Ordered:12-Aug-2014 CONJUGATE VACCINE (G0009) How to access health information Completed:12-Aug-2014 online Follow up in 6 months Ordered: Follow up in 2 months Ordered:26-Oct-2013 ADMIN INFLUENZA VIRUS VAC: FLU VACC Completed:26-Oct-2013 PRSV FREE INC ANTIG (52667) ADMINISTRATION OF INFLUENZA VIRUS Ordered:26-Oct-2013 VACCINE (G0008) Follow up in 6 months Ordered:30-Apr-2013 Follow up - Keep appt as scheduled Ordered:02-Jan-2013 Follow up in 6 months Ordered:30-Oct-2012 Follow up in 3 months Ordered:01-Aug-2012 Follow up in 3 months Ordered:01-May-2012 Follow up in 6 weeks Ordered: ADMINISTRATION OF INFLUENZA VIRUS Ordered:14-May-2011 VACCINE (G0008) FLU VACC PRSV FREE INC ANTIG Completed:14-May-2011 (14789) Follow up in 2 months Ordered:14-May-2011 Follow [...] Site: Deltoid (Left); high dose Lot #: [id number] Influenza, preserv. free, enhanced immunogncty, IM Administered on:2013 Comments: Site: Deltoid (Left) Lot #: [id number] Pneumococcal conjugate vaccine, 13 valent, IM Administered on:12-Aug-2014 Comments: Site: Deltoid (Left) Lot #: [id number] Social History Name Dates Details Tobacco use: [...] Comments: The left neck Final 10:36 SINGLE (18730) lesion was removed and also the left [...] not sent to pathology. 10:35 PUNCH BIOPSY (30522) Comments: After Final FIRST BIOPSY cleansing the left forearm with Hibiclens solution x3, the area was anesthetized with 1 cc 1% lidocaine and a 2 mm punch was used and elevated with sterile scissors and sent to pathology. Silver nitrate stick was for cautery. [facility] (01138) Comments: Items in this order include: Basic [...] include: A COPY TO [kyung], PSA ANTIGEN) (47774) PSA 6.55 ng/mL (Abnormal) Range: 0.00-4.00 09:25 [...] ([facility]) (58830) 8. Saturday Dosage 7.5 mg (Normal) 9. [...] order include: Draw Charge[i], Protime & INR (72093) Draw Drawn (Normal) -Dec-2014 PT (PROTHROMBIN TIME) Comments: Items in this order include: Draw Charge[i], Protime & INRDoes patient have a artifical heart valve? No 09:28 ([facility]) (09782) 9. Saturday Dosage 5.0 mg (Normal) 7. [...] order include: Draw Charge[i], Protime & INR (95955) Draw Drawn (Normal) 28-Oct-2014 PT (PROTHROMBIN TIME) Comments: Items in this order include: Draw Charge[i], Protime & INRDoes patient have a artifical heart valve? No 10:48 ([facility]) (26174) 9. Saturday Dosage 7.5 mg (Normal) 8. [...] order include: Draw Charge[i], Protime & INR (50153) Draw Drawn (Normal) 29-Nov-2014 PT (PROTHROMBIN TIME) Comments: Items in this order include: Draw Charge[i], Protime & INRDoes patient have a artifical heart valve? No 10:28 ([facility]) (32138) 9. day Dosage 5.0 mg (Normal) 8. [...] order include: Draw Charge[i], Protime & INR (18211) Draw Drawn (Normal) 21-Sep-2014 PT (PROTHROMBIN TIME) Comments: Items in this order include: Draw Charge[i], Protime & INRLily patient have a artifical heart valve? No 10:08 ([facility]) (31755) 9. Saturday Dosage 5.0 mg (Normal) 7. [...] order include: Draw Charge[i], Protime & INR (49169) Draw Drawn (Normal) 24-Aug-2014 Routine Venipuncture Comments: Items in this order include: Protime & INR, Draw Charge[i] 09:59 (07320) Draw Drawn (Normal) 09:59 PT (PROTHROMBIN TIME) Comments: Items in this order include: Protime & INR, Draw Charge[i]INR value > 3.0 given to Estella by Beny Buckley patient have a artifical heart valve? No ([facility]) (70701) 9. Saturday Dosage 7.5 mg (Normal) 7. [...] Panel, Hemoglobin A1C, Urine Microalbumin, CBC ONE! (43464) manual diff Not Indicated (Normal) mpv 9.60 [...] Metabolic Panel, Hemoglobin A1C, Urine Microalbumin, CBC (29860) U A:C RATIO <30 mg/g Normal Range: <30 mg/g Normal (Normal) U CREAT 200 mg/dL (Normal) Range: 10-300 U ALB 80 mg/L (Abnormal) Range: 10 mg/L 09:59 HEMOGLOBIN GLYCLATED Comments: Items in this order include: Digoxin , PSA, Basic Metabolic Panel, Hemoglobin A1C, Urine Microalbumin, CBC (HGB A1C) (01897) A1C 5.9 % (Normal) Range: 4.6-6.2 Comments: Increased risk of diabetes. 09:59 [facility] (38075) Comments: Items in this order include: Digoxin, [...] Panel, Hemoglobin A1C, Urine Microalbumin, CBC ANTIGEN) (91398) PSA 7.11 ng/mL (Abnormal) Range: 0.00-4.00 09:59 DIGOXIN (49388) Comments: Items in this order include: Digoxin, PSA , Basic Metabolic Panel, Hemoglobin A1C, Urine Microalbumin, CBCTime of Last Dose? 08/23/2014 8:00 AMDosage? 0.25 DIG 0.36 ng/mL (Abnormal) Range: 0.90-2.00 05-Aug-2014 PT (PROTHROMBIN TIME) Comments: Items in this order include: Draw Charge[i], Protime & INRDoes patient have a artifical heart valve? No 10:48 ([facility]) (27333) 8. Saturday Dosage 7.5 mg (Normal) 9. [...] order include: Draw Charge[i], Protime & INR (40008) Draw Drawn (Normal) 03-Jun-2014 PT (PROTHROMBIN TIME) Comments: Items in this order include: Draw Charge[i], Protime & INRDoes patient have a artifical heart valve? No 13:56 ([employer]) (75614) 9. Saturday Dosage 7.5 mg (Normal) 8. [...] order include: Draw Charge[i], Protime & INR (77660) Draw Drawn (Normal) PT (PROTHROMBIN TIME) Comments: Items in this order include: Protime & INRDoes patient have a artifical heart valve? No 14:25 ([employer]) (98447) 9. Saturday Dosage 5.0 mg (Normal) 8. [...] this order include: Draw Charge[i], PSA ANTIGEN) (69416) PSA 6.15 ng/mL (Abnormal) Range: 0.00-4.00 14:25 Routine Venipuncture Comments: A copy of this report will be faxed to: Bettie Boswell in this order include: Draw Charge[i], PSA (05147) Draw Drawn (Normal) HEMOGLOBIN GLYCLATED Comments: Items in this order include: Hemoglobin A1C, Draw Charge[i], Comprehensive Metabolic Panel, Uric Acid 15:06 (HGB A1C) (63692) A1C 5.7 % (Normal) Range: 4.6-6.2 15:06 CMP (92998) Comments: Items in this order include: Hemoglobin [...] (Normal) Range: 135-145 15:06 URIC ACID BLOOD (29358) Comments: Items in this order include: Hemoglobin A1C, Draw Charge[i], Comprehensive Metabolic Panel, Uric Acid Uric Acid 8.0 mg/dL (Abnormal) Range: 3.6-7.7 15:06 Routine Venipuncture Comments: Items in this order include: Hemoglobin A1C, Draw Charge[i], Comprehensive Metabolic Panel, Uric Acid (65203) Draw Drawn (Normal) PT (PROTHROMBIN TIME) Comments: Items in this order include: Draw Charge[i], Protime & INRDoes patient have a artifical heart valve? No 14:27 ([facility]) (78196) 8. Saturday Dosage 5.0 mg (Normal) 9. [...] order include: Draw Charge[i], Protime & INR (50364) Draw Drawn (Normal) 26-Oct-2013 Draw Charge[i] Comments: Items in this order include: Basic Metabolic Panel, Draw Charge[i] 17:08 Draw Drawn (Normal) 17:05 [facility] (74731) Comments: Items in this order include: Basic [...] ([facility]) (74134) 9. Saturday Dosage 5.0 mg (Normal) 7. [...] order include: Draw Charge[i], Protime & INR (20362) Draw Drawn (Normal) 15-Sep-2013 PSA (PROSTATE SPECIFIC Comments: A copy of this report will be faxed to: Bettie Boswell in this order include: A COPY TO [eliana PSAPSA allowed more than once a year due to being a Diagonistic PSA not a screening PSA 11:05 ANTIGEN) (18007) PSA 5.40 ng/mL (Abnormal) Range: 0.00-4.00 11:05 [...] this order include: Comprehensive Metabolic Panel, Hemoglobin L3FPxht Hgb A1C was ran 99 Days ago. Check by MARGARITA 10:38 (HGB A1C) (57716) A1C 5.9 % (Normal) Range: 4.6-6.2 Comments: Increased risk of diabetes. 10:[address] [facility] (94154) Comments: Items in this order include: Comprehensive Metabolic Panel, Hemoglobin L9ALiqo Hgb A1C was ran 99 Days ago. [...] ([facility]) (48884) 9. Saturday Dosage 5.0 (cycle of 5,5,7.5 [...] order include: Draw Charge[i], Protime & INR (96628) Draw Drawn (Normal) 10:38 DIGOXIN (72993) Comments: Items in this order include: DigoxinTime of Last Dose? 08/06/2013 8:30 AMDosage? 0.25 mg daily DIG 0.48 ng/mL (Abnormal) Range: 0.90-2.00 30-Apr-2013 HEMOGLOBIN GLYCLATED Comments: Items in this order include: Comprehensive Metabolic Panel, CBC, Hemoglobin A8YEpfv Hgb A1C was ran 225 Days ago. Check by ms 11:58 (HGB A1C) (36295) A1C 6.1 % (Normal) Range: 4.6-6.2 11:58 CBC MALE- ORDER THIS Comments: Items in this order include: Comprehensive Metabolic Panel, CBC, Hemoglobin V6MRfio Hgb A1C was ran 225 Days ago. Check by ms ONE! (42960) manual diff Not Indicated (Normal) mpv 4.88 [...] 6.15 10*3/uL (Normal) Range: 4.50-10.50 11:58 CMP (21789) Comments: Items in this order include: Comprehensive Metabolic Panel, CBC, Hemoglobin T1RGais Hgb A1C was ran 225 Days ago. [...] ([facility]) (01690) 4. Saturday Dosage Repeat mg (Normal) 3. Saturday Dosage 7.5 mg (Normal) 2. Saturday Dosage 5.0 mg (Normal) 1. Saturday Dosage 5.0 mg (Normal) INR 2.60 (Normal) PT 26.8 s (Abnormal) Range: 10.4-12.4 PT (PROTHROMBIN TIME) Comments: Items in this order include: Draw Charge[i], Protime & INRDoes patient have a artifical heart valve? No 15:12 ([facility]) (78284) 5. Dosage Repeat mg (Normal) 4. Saturday Dosage 5.0 mg (Normal) 3. Saturday Dosage 5.0 mg (Normal) 2. Saturday Dosage 7.5 mg (Normal) INR 2.31 (Normal) PT 24.0 s (Abnormal) Range: 10.4-12.4 15:12 Routine Venipuncture Comments: Items in this order include: Draw Charge[i], Protime & INR (75891) Draw Drawn (Normal) PSA (PROSTATE SPECIFIC Comments: A copy of this report will be faxed to: Bettie Boswell in this order include: PSA, Draw Charge[i]PSA allowed more than once a year due to being a Diagonistic PSA not a screening PSA 10:00 ANTIGEN) (94887) PSA 5.60 ng/mL (Abnormal) Range: 0.00-4.00 10:00 [...] ([facility]) (97621) 3. Saturday Dosage Repeat mg (Normal) 2. Saturday Dosage 7.5 mg (Normal) 1. Saturday Dosage 5.0 mg (Normal) INR 2.64 (Normal) PT 27.2 s (Abnormal) Range: 10.4-12.4 10:09 Routine Venipuncture Comments: Items in this order include: Draw Charge[i], Protime & INR (88664) Draw Drawn (Normal) 16-Dec-2012 PT (PROTHROMBIN TIME) Comments: Items in this order include: Draw Charge[i], Protime & INRDoes patient have a artifical heart valve? No 10:46 ([facility]) (13861) 4. Saturday Dosage Repeat mg (Normal) 3. Saturday Dosage 5.0 mg (Normal) 2. Saturday Dosage 7.5 mg (Normal) INR 2.13 (Normal) PT 22.2 s (Abnormal) Range: 10.4-12.4 10:46 Routine Venipuncture Comments: Items in this order include: Draw Charge[i], Protime & INR (43923) Draw Drawn (Normal) 26-Nov-2012 Routine Venipuncture Comments: Items in this order include: Protime & INR, Draw Charge[i] 15:05 (52291) Draw Drawn (Normal) 15:05 PT (PROTHROMBIN TIME) Comments: Items in this order include: Protime & INR, Draw Charge[i]Does patient have a artifical heart valve? No ([facility]) (30285) 4. Saturday Dosage 5.0 Repeat mg (Normal) [...] ([facility]) (10026) 7. Saturday Dosage 7.5 mg (Normal) 6. [...] order include: Draw Charge[i], Protime & INR (94929) Draw Drawn (Normal) 11:33 BMP Comments: Items [...] Dose? 10/29/2012 8:00 PMDosage? 0.25 mg Daily (64641) DIG 1.64 ng/mL (Normal) Range: 0.90-2.00 14-Oct-2012 PSA (PROSTATE SPECIFIC Comments: A copy of this report will be faxed to: Bettie Boswell in this order include: Draw Charge[i], Protime & INR, PSAPSA allowed more than once a year due to being a Diagonistic PSA not a screening PSA 10:25 ANTIGEN) (24187) PSA 8.11 ng/mL (Abnormal) Range: 0.00-4.00 10:25 PT (PROTHROMBIN TIME) Comments: PSA allowed more than once a year due to being a Diagonistic PSA not a screening PSACoumadin dosage=5,5,5,5,7.5 repeatDoes patient have a artifical heart valve? No ([facility]) (13328) 7. Saturday Dosage 7.5 mg (Normal) 6. [...] a Diagonistic PSA not a screening PSA (90524) Draw Drawn (Normal) 12-Sep-2012 PT (PROTHROMBIN TIME) Comments: Items in this order include: Draw Charge[i], Protime & INRDoes patient have a artifical heart valve? No 09:16 ([employer]) (78369) 6. Saturday Dosage Repeat mg (Normal) 5. Dosage 7.5 mg (Normal) 4. Saturday Dosage 5.0 mg (Normal) 3. Saturday Dosage 5.0 mg (Normal) 2. Saturday Dosage 5.0 mg (Normal) 1. Saturday Dosage 5.0 mg (Normal) INR 2.48 (Normal) PT 25.7 s (Abnormal) Range: 10.4-12.4 09:16 Routine Venipuncture Comments: Items in this order include: Draw Charge[i], Protime & INR (80736) Draw Drawn (Normal) 18-Aug-2012 PT (PROTHROMBIN TIME) Comments: Items in this order include: Protime & INRDoes patient have a artifical heart valve? No 11:44 ([facility]) (06915) 7. Saturday Dosage 5.0 mg (Normal) 6. [...] Days ago. Check by KB (HGB A1C) (94264) A1C 6.2 % (Normal) Range: 4.6-6.2 Comments: High risk of diabetes. 31-Jul-2012 PT (PROTHROMBIN TIME) Comments: Items in this order include: Draw Charge[i], Protime & INRINR value > 3.0 given to Estella by Beny Buckley patient have a artifical heart valve? No 13:32 ([facility]) (64932) 7. Saturday Dosage 5.0 mg (Normal) 6. [...] order include: Draw Charge[i], Protime & INR (93945) Draw Drawn (Normal) 23-Jun-2012 PSA (PROSTATE SPECIFIC Comments: A copy of this report will be faxed to: Bettie Boswell in this order include: Draw Charge[i], Protime & INR, PSAPSA allowed more than once a year due to being a Diagonistic PSA not a screening PSA 15:50 ANTIGEN) (82141) PSA 8.05 ng/mL (Abnormal) Range: 0.00-4.00 15:50 PT (PROTHROMBIN TIME) Comments: A copy of this report will be faxed to: Bettie Boswell in this order include: Draw Charge[i], Protime & INR , PSAPSA allowed more than once a year due to being a Diagonistic PSA not a screening ([facility]) (87488) PSADoes patient have a artifical heart valve? [...] a Diagonistic PSA not a screening PSA (99523) Draw Drawn (Normal) 13-May-2012 Draw Charge[i] Comments: [...] results to dr. hema boswell 14:28 ANTIGEN) (51782) PSA 16.45 ng/mL (Abnormal) Range: 0.00-4.00 14:28 PT (PROTHROMBIN TIME) Comments: Coumadin Dosage=5,5,5,7.5 Repeat. Took 7.5 on 04-27-12. ([facility]) (83513) 5. Dosage 7.5 Repeat mg (Normal) 4. Saturday Dosage 5.0 mg (Normal) 3. Saturday Dosage 5.0 mg (Normal) 2. Saturday Dosage 5.0 mg (Normal) 1. Saturday Dosage 7.5 mg (Normal) INR 2.17 (Normal) PT 22.7 s (Abnormal) Range: 10.4-12.4 14:28 Routine Venipuncture (05533) Draw Drawn (Normal) 13-May-2012 PSA (PROSTATE SPECIFIC Comments: A copy of this report will be faxed to: Bettie Boswell in this order include: PSA, Draw Charge[i]PSA allowed more than once a year due to being a Diagonistic PSA not a screening PSA 09:20 ANTIGEN) (83821) PSA 11.30 ng/mL (Abnormal) Range: 0.00-4.00 TSH (THYROID Comments: Items in this order include: TSH 16:40 STIMULATING HORMONE) (16373) TSH 1.36 uIU/ml (Normal) Range: 0.34-5.60 14:50 PT (PROTHROMBIN TIME) Comments: Items in this order include: Draw Charge[i], Basic Metabolic Panel, Hemoglobin A1C, Protime & INRLast Hbg A1C was ran 218 Days ago. Check by DL ([facility]) (95565) 5. Dosage Repeat mg (Normal) 4. Saturday [...] ran 218 Days ago. Check (HGB A1C) (63383) by DLplease draw enough blood so if [...] ran 218 Days ago. Check by DL (75496) Draw Drawn (Normal) DIGOXIN, DRUG ASSAY Comments: Items in this order include: CBC, Comprehensive Metabolic Panel, CKI, Digoxin, Draw Charge[i] 09:08 (10466) DIG 0.38 ng/mL (Abnormal) Range: 0.90-2.00 09:08 CK Comments: Items in this order include: CBC, Comprehensive Metabolic Panel, CKI, Digoxin, Draw Charge[i] CKI 143 U/L (Normal) Range: 39-308 09:08 CMP (85717) Comments: Items in this order include: CBC, [...] Metabolic Panel, CKI, Digoxin, Draw Charge[i] ONE! (56254) manual diff Not Indicated (Normal) mpv 6.84 [...] order include: Protime & INR, Draw Charge[i] (32717) Draw Drawn (Normal) 16:45 PT (PROTHROMBIN TIME) Comments: Items in this order include: Protime & INR, Draw Charge[i]Coumadin doasage=5,5,7.5 Repeat ([facility]) (71765) 7. Saturday Dosage 5.0 mg (Normal) 6. [...] CKI, Digoxin, Draw Charge[i] Draw Drawn (Normal) -Oct-2011 PSA (PROSTATE SPECIFIC Comments: A copy of this report will be faxed to: Bettie Boswell in this order include: Draw Charge[i], PSA 11:11 ANTIGEN) (98244) PSA 6.92 ng/mL (Abnormal) Range: 0.00-4.00 11:11 Routine Venipuncture Comments: A copy of this report will be faxed to: Bettie Boswell in this order include: Draw Charge[i], PSA (54103) Draw Drawn (Normal) 17-Oct-2011 Routine Venipuncture 10:18 (99890) Draw Drawn (Normal) 10:18 TESTOSTERONE, FREE, Comments: Items in this order include: Protime & INR, Draw Charge[i], TESTOSTERONE, FREE, BIOAVAILABLE, AND TOTAL, LC/MS/ MSTesting performed at: [place], [address] [employer], [place], [address], Track Vehicle Repairer: Michael Chávez [facility] TOTAL, LC/MS/MS ALBUMIN,SERUM 4.4 [...] ([facility]) (99097) 7. Saturday Dosage 5.0 mg (Normal) 6. [...] Panel, Hemoglobin A1C, Draw Charge[i] (HGB A1C) (82955) A1C 6.1 % (Normal) Range: 4.6-6.2 13:29 [...] (Normal) Range: 135-145 13:29 DIGOXIN, DRUG ASSAY (46248) DIG 0.85 ng/mL (Abnormal) Range: 0.90-2.00 07-Aug-2011 TESTOSTERONE, FREE, Comments: Items in this order include: TESTOSTERONE, FREE, BIOAVAILABLE, AND TOTAL, LC/MS/MSTesting performed at: [place], [address] [address], [place] , [address], [place] 12:53 WEAKLY BOUND AND TOTAL ratory Director: Michael Chávez MD.[facility] (08712) ALBUMIN,SERUM 4.4 g/dL (Normal) Range: 3.6-5.1 SEX [...] ([facility]) (83040) 7. Saturday Dosage 7.5 mg (Normal) 6. [...] ([facility]) (82096) 7. Saturday Dosage 5.0 mg (Normal) 5. [...] Boswell in this order include: PSA ANTIGEN) (14558) PSA 5.95 ng/mL (Abnormal) Range: 0.00-4.00 CBC-MALE- ORDER THIS Comments: Items in this order include : Hemoglobin A1C, Comprehensive Metabolic Panel, CBC 11:56 ONE! (36639) manual diff Not Indicated (Normal) mpv 7.65 [...] 6.24 10*3/uL (Normal) Range: 4.50-10.50 11:56 CMP (11022) Comments: Items in this order include: Hemoglobin [...] this order include: Digoxin, Draw Charge[i] 15:17 (72512) DIG 1.18 ng/mL (Normal) Range: 0.90-2.00 HEMOGLOBIN GLYCLATED Comments: Items in this order include: Hemoglobin A1C, Comprehensive Metabolic Panel, CBC 11:56 (HGB A1C) (88144) A1C 6.6 % (Abnormal) Range: 4.6-6.2 Comments: Consistent with diabetes. 13:48 PT (PROTHROMBIN TIME) Comments: change to coumadin 5mg x 2 day then 7.5mg x1 repeat the cycle; Items in this order include: Protime & INR, Draw Charge[i]cyclechange to coumadin 5mg x 2 day then 7.5mg x1 repeat the ([facility]) (92556) 6. Saturday Dosage 7.5 mg (Normal) 7. [...] & INR, PSA, Draw Charge[i] 09:43 ANTIGEN) (15084) PSA 5.84 ng/mL (Abnormal) Range: 0.00-4.00 09:43 PT (PROTHROMBIN TIME) Comments: no change in coumadin; no change in coumadin ([facility]) (98568) 7. day Dosage 7.5 mg (Normal) 6. Joao Dosage 5.0 mg (Normal) 5. Dosage 7.5 mg (Normal) 4. Saturday Dosage 5.0 mg (Normal) 3. Saturday Dosage 5.0 mg (Normal) 1. Saturday Dosage 5.0 mg (Normal) 2. Saturday Dosage 7.5 mg (Normal) INR 3.45 (Normal) PT 32.9 s (Abnormal) Range: 10.4-12.4 23-Nov-2010 PT (PROTHROMBIN TIME) 10:03 ([facility]) (69181) 6. Saturday Dosage 7.5 mg (Normal) 7. Saturday Dosage 5 mg (Normal) 1. Saturday Dosage 5 mg (Normal) 2. Saturday Dosage 7.5 mg (Normal) 3. Saturday Dosage 5 mg (Normal) 4. Saturday Dosage 7.5 mg (Normal) 5. Dosage 5 mg (Normal) INR 2.16 (Normal) PT 21.0 s (Abnormal) Range: 10.4-12.4 19-Oct-2010 PT (PROTHROMBIN TIME) 15:16 ([facility]) (40320) 6. Saturday Dosage 5 mg (Normal) 7. Saturday Dosage 7.5 mg (Normal) 3. Saturday Dosage 7.5 mg (Normal) 4. Saturday Dosage 5 mg (Normal) 5. Dosage 7.5 mg (Normal) 1. Saturday Dosage 7.5 mg (Normal) 2. Saturday Dosage 5 mg (Normal) INR 2.13 (Normal) PT 20.7 s (Abnormal) Range: 10.4-12.4 12-Sep-2010 PT (PROTHROMBIN TIME) 11:03 ([facility]) (17802) INR 2.57 (Normal) PT (PROTHROMBIN TIME) 24.8 s (Abnormal) Range: 11.5-13.5 22-Aug-2010 PT (PROTHROMBIN TIME) 13:41 ([facility]) (71335) 09-Aug-2010 PSA, MEDICARE (G0103) Comments: please fax to dr hema boswell 09:54 PSA (Medicare) 4.83 ng/mL (Abnormal) Range: 0 - 4 09:34 PT (PROTHROMBIN TIME) ([facility]) (17945) INR 2.68 (Normal) PT (PROTHROMBIN TIME) 25.8 s (Abnormal) Range: 11.5-13.5 27-Jun-2010 PT (PROTHROMBIN TIME) 08:38 ([facility]) (60801) 26-Jun-2010 PT (PROTHROMBIN TIME) 16:21 ([facility]) (77459) INR 1.89 (Normal) PT (PROTHROMBIN TIME) 18.4 s (Abnormal) Range: 11.5-13.5 Treatment Plan PT (PROTHROMBIN TIME) ([facility]) (29114); Ordered: 03/15/2015Routine Venipuncture ( 87314); Ordered: 03/15/2015 Advance Directives Encounters Office Visit - Benign essential hypertension (401.1 [...] stairs and I have to crawl. [facility] Historical Summary On [facility] 12:33 to 12:36 Lab entry only - Encounter for long-term (current) use of anticoagulants ( V58.61 | Z79.01) On [facility] 17:37 to 17:39 Lab entry only - Elevated PSA (790.93) On [facility] 10:10 to 10:11 Lab entry only - Encounter for long-term (current) use of anticoagulants ( V58.61 | Z79.01), Encounter for long-term (current) use of anticoagulants ( V58.61 | Z79.01) On 14-Jan-2015 [facility] 14:52 to 14:53 Lab entry only - Encounter for long-term (current) use of anticoagulants ( V58.61 | Z79.01), Encounter for long-term (current) use of anticoagulants ( V58.61 | Z79.01) On 29-Nov-2014 [facility] 12:31 to 15:09 Medication Entry - Diabetes mellitus (250.00 | E11.9) On 12-Nov-2014 [facility] 11:46 to 11:53 Medication Entry - Cellulitis, leg (682.6 | L03.119) On 11-Nov-2014 [facility] 09:48 to 10:00 Office Visit - [...] into care": He feels things are improved.[facility] Historical Summary On 27-Oct-2014 [facility] 15:03 to 15:08 Lab entry only - Fibrillation, atrial (427.31), Encounter for long-term ( current) use of anticoagulants (V58.61 | Z79.01) On 18-Oct-2014 [facility] 17:08 to 17:09 Medication Entry - Gout (274.9 | M10.9) On 12-Oct-2014 [facility] 16:17 to 16:22 Lab entry only - Encounter for long-term (current) use of anticoagulants ( V58.61 | Z79.01) On 21-Sep-2014 [facility] 15:31 to 15:33 Radiology Visit - Carotid stenosis (433.10 | I65.29) On 14-Sep-2014 [facility] 09:33 to 09:36 Lab entry only - Encounter for long-term (current) use of anticoagulants ( V58.61 | Z79.01) On 24-Aug-2014 [facility] 16:31 to 16:34 Office Visit - Health education (V65.40 | Z71.9), Prevnar (PCV13)FOR MEDICARE USE ONLY Pneumovax injection (V03.82) 06859, Encounter for long-term ( current) use of [...] screening. He mentions the "discoloration" of ankles.[facility] Historical Summary On 11-Aug-2014 [facility] 16:16 to 16:19 Lab entry only - Fibrillation, atrial (427.31), Encounter for long-term ( current) use of anticoagulants (V58.61 | Z79.01) On 06-Aug-2014 [facility] 16:41 to 16:43 Medication Entry - Benign essential hypertension (401.1 | I10) On 21-Jun-2014 [facility] 11:12 to 11:14 Lab entry only - Encounter for long-term (current) use of anticoagulants ( V58.61 | Z79.01) On 03-Jun-2014 [facility] 16:13 to 16:15 Lab entry only - Encounter for long-term (current) use of anticoagulants ( V58.61 | Z79.01) On [facility] 13:22 to 13:23 Lab entry only - Elevated PSA (790.93), Encounter for long-term (current) use of anticoagulants (V58.61 | Z79.01) On [facility] 14:27 to 14:28 Office Visit - [...] in the morning and on stairs. [facility] Historical Summary On 28-Dec-2013 [facility] 12:26 to 12:29 Medication Entry - Encounter for long-term (current) use of anticoagulants ( V58.61 | Z79.01), Diabetes mellitus (250.00 | E11.9), Fibrillation, atrial ( 427.31) On 03-Nov-2013 [facility] 09:01 to 11:53 Medication Entry - Fibrillation, atrial (427.31), Diabetes mellitus (250.00 | E11.9) On 30-Oct-2013 [facility] 15:55 to 16:00 Lab entry only - Encounter for long-term (current) use of anticoagulants ( V58.61 | Z79.01) On 27-Oct-2013 [facility] 17:57 to 17:59 Office Visit - [...] M.D. after being in the hospital at [facility] on 10/16/13 & discharged on 10/17/13 dx k olayinka stone, inr was done prior to visit.) . Note for "Transition into care": He passed a kidney stone a week ago.[facility] Historical Summary On 23-Oct-2013 [facility] 14:42 to 14:45 Lab entry only - Encounter for long-term (current) use of anticoagulants ( V58.61 | Z79.01) On 20-Oct-2013 [facility] 16:31 to 16:33 Lab entry only - Encounter for long-term (current) use of anticoagulants ( V58.61 | Z79.01) On 16-Sep-2013 [facility] 10:14 to 10:15 Lab entry only - Elevated PSA (790.93) On 15-Sep-2013 [facility] 11:11 to 11:12 Lab entry only - Encounter for long-term (current) use of anticoagulants ( V58.61 | Z79.01) On 07-Aug-2013 [facility] 14:32 to 14:33 Lab entry only - Benign essential hypertension (401.1 | I10), Diabetes mellitus (250.00 | E11.9) On 07-Aug-2013 [facility] 11:18 to 11:19 Lab entry only - Encounter for long-term (current) use of anticoagulants ( V58.61 | Z79.01) On 01-May-2013 [facility] 10:33 to 10:38 Office Visit - [...] did miss some meds while he traveled.[facility] Historical Summary On 29-Apr-2013 [facility] 11:46 to 11:49 Lab entry only - Encounter for long-term (current) use of anticoagulants ( V58.61 | Z79.01) On [facility] 16:39 to 16:42 Lab entry only - Encounter for long-term (current) use of anticoagulants ( V58.61 | Z79.01) On [facility] 19:40 to 19:42 Lab entry only - Elevated PSA (790.93) On [facility] 12:03 to 12:07 Office Visit - [...] "Cough": He has not had an antibiotic.[facility] Lab entry only - Encounter for long-term (current) use of anticoagulants ( V58.61 | Z79.01) On 16-Dec-2012 [facility] 18:21 to 18:23 Lab entry only - Encounter for long-term (current) use of anticoagulants ( V58.61 | Z79.01) On 27-Nov-2012 [facility] 16:52 to 16:53 Lab entry only - Encounter for long-term (current) use of anticoagulants ( V58.61) On 26-Nov-2012 [facility] 15:04 to 15:05 Office Visit - [...] thing in the morning and on stairs.[facility] Historical Summary On 29-Oct-2012 [facility] 16:15 to 16:17 Lab entry only - Encounter for long-term (current) use of anticoagulants ( V58.61) On 15-Oct-2012 [facility] 09:51 to 09:57 Lab entry only - Encounter for long-term (current) use of anticoagulants ( V58.61), Elevated PSA (790.93) On 14-Oct-2012 [facility] 10:25 to 10:26 Lab entry only - Encounter for long-term (current) use of anticoagulants ( V58.61) On 12-Sep-2012 [facility] 13:44 to 13:45 Medication Entry - Edema (782.3), Fibrillation, atrial (427.31) On 20-Aug-2012 [facility] 11:10 to 11:12 Medication Entry - Fibrillation, atrial (427.31), Edema (782.3) On 19-Aug-2012 [facility] 17:29 to 18:11 Medication Entry - Encounter for long-term (current) use of anticoagulants ( V58.61), Fibrillation, atrial (427.31), Diabetes mellitus (250.00) On 2011 [facility] 17:44 to 17:53 Office Visit - 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), Inflamed seborrheic keratosis (702.11), Hyperglycemia (790.29), Encounter for long-term (current) use of anticoagulants (V58.61), Fibrillation, atrial (427.31) On 01-Aug-2012 Encounter Reason: Follow up for chronic condition - The patient feels well with minor complaints (here today for a 3 month follow up with Dr. Romero ) .[facility] 09:34 to 10:39 Medication Entry - Encounter for long-term (current) use of anticoagulants ( V58.61) On 31-Jul-2012 [facility] 18:21 to 18:22 Historical Summary On 31-Jul-2012 [facility] 11:40 to 11:42 Lab entry only - Encounter for long-term (current) use of anticoagulants ( V58.61) On 23-Jun-2012 [facility] 18:47 to 18:52 Lab entry only - Elevated PSA (790.93), Encounter for long-term (current) use of anticoagulants (V58.61) On 23-Jun-2012 [facility] 15:48 to 15:53 Office Visit - Adjustment disorder with depressed mood (309.0), Encounter for long-term (current) use of anticoagulants (V58.61), Elevated PSA (790.93) On Encounter Reason: Follow up for chronic condition - The patient feels well with minor complaints (here for a 6 week follow up visit do to a new medication but did not start the medication).[facility] 11:19 to 13: 39 Historical Summary On 30-Apr-2012 [facility] 11:50 to 11:52 Lab entry only - Encounter for long-term (current) use of anticoagulants ( V58.61) On 28-Apr-2012 [facility] 17:23 to 17:26 Lab entry only - Elevated PSA (790.93), Encounter for long-term (current) use of anticoagulants (V58.61) On 28-Apr-2012 [facility] 14:19 to 14:22 Office Visit - [...] had lab done prior to appt today).[facility] Lab entry only - Edema (782.3), Hyperglycemia (790.29), Encounter for long- term (current) use of anticoagulants (V58.61) On [facility] 11:06 to 11:14 Lab entry only - Elevated PSA (790.93), Fibrillation, atrial (427.31), Edema ( 782.3) On [facility] 09:02 to 09:05 Lab entry only - Encounter for long-term (current) use of anticoagulants ( V58.61) On [facility] 16:44 to 16:45 Medication Entry On 26-Oct-2011 [facility] 13:30 to 13:32 Lab entry only - Elevated PSA (790.93) On 23-Oct-2011 [facility] 11:01 to 11:04 Lab entry only - Encounter for long-term (current) use of anticoagulants ( V58.61), Low testosterone (257.2) On 17-Oct-2011 [facility] 10:15 to 10:17 Medication Entry - Fibrillation, atrial (427.31) On 04-Oct-2011 [facility] 09:26 to 09:38 Medication Entry - Fibrillation, atrial (427.31), Edema (782.3), Encounter for long-term (current) use of anticoagulants (V58.61), Benign prostatic hypertrophy without lower urinary tract symptoms (LUTS) (600.00) On 02-Oct-2011 [facility] 18:56 to 19:02 Medication Entry - Encounter for long-term (current) use of anticoagulants ( V58.61), Fibrillation, atrial (427.31), Edema (782.3) On 26-Sep-2011 [facility] 11:06 to 11:11 Medication Entry - Fibrillation, atrial (427.31), Encounter for long-term ( current) use of anticoagulants (V58.61) On 24-Sep-2011 [facility] 10:41 to 10:49 Lab entry only - Low testosterone (257.2) On 10-Aug-2011 [facility] 13:03 to 13:05 Lab entry only - Hyperglycemia (790.29), Encounter for long-term (current) use of anticoagulants (V58.61), Fibrillation, atrial (427.31) On 08-Aug-2011 [facility] 13:27 to 13:29 Office Visit - [...] 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." [facility] Historical Summary On 06-Aug-2011 [facility] 12:22 to 12:24 Medication Entry - Fibrillation, atrial (427.31) On 05-Jun-2011 [facility] 08:54 to 08:59 Lab entry only - Encounter for long-term (current) use of anticoagulants ( V58.61) On 15-May-2011 [facility] 18:48 to 18:50 Office Visit - [...] is diabetes, hypertension, cardiovascular disorder and other.[facility] Medication Entry - Benign prostatic hypertrophy without lower urinary tract symptoms (LUTS) (600.00) On 19-Apr-2011 [facility] 08:49 to 08:51 Lab entry only - Benign prostatic hypertrophy without lower urinary tract symptoms (LUTS) (600.00) On 10-Apr-2011 [facility] 15:15 to 15:19 Office Visit - [...] seeing dr. boswell the middle of apr.). [facility] Historical Summary On [facility] 16:05 to 16:18 Lab entry only - Encounter for long-term (current) use of anticoagulants ( V58.61) On [facility] 17:34 to 17:36 Lab entry only - Encounter for long-term (current) use of anticoagulants ( V58.61), Elevated PSA (790.93) On [facility] 09:42 to 09:43 Lab entry only - Encounter for long-term (current) use of anticoagulants ( V58.61) On 24-Nov-2010 [facility] 08:55 to 08:57 Lab entry only - Encounter for long-term (current) use of anticoagulants ( V58.61) On 20-Oct-2010 [facility] 14:42 to 14:46 Historical Summary - Encounter for long-term (current) use of anticoagulants ( V58.61) On 13-Sep-2010 [facility] 10:53 to 10:59 Historical Summary 12-Sep-2010 to 13-Sep-2010 [facility] Lab entry only - Encounter for long-term (current) use of anticoagulants ( V58.61) On 14-Aug-2010 [facility] 17:44 to 17:49 Historical Summary - Elevated PSA (790.93) 09-Aug-2010 to 15-Aug-2010 [facility] Lab entry only - Encounter for long-term (current) use of anticoagulants ( V58.61) 27-Jun-2010 to 28-Jun-2010 [facility] Lab entry only - Encounter for long-term (current) use of anticoagulants ( V58.61) On 26-Jun-2010 [facility] 16:21 to 22:23 Insurance Vijay Yuan; gwen guarantorMedicare [employer]
--- OUTSIDE RECORDS SUMMARY | 2017-10-22 18:01 | External Medical Summary | Continuity of Care Document ---
:1940 Author Organization [facility] Address [address] [place] [address] Phone Care Team Providers Name Role Phone [...] Prevnar (PCV13)FOR MEDICARE USE ONLY Pneumovax injection 55499 (V03.82) Status: Active Renal lithiasis (592.0, N20.0) [...] Comments:started on 10/17/13 after being dismissed from [facility] for kidney stone by gale [...] dx kidney stone from being discharged from [facility] testrone cream 10% apply 0.5ml [...] appt as scheduled Ordered:28-Oct-2014 CAROTID BILATERAL US ([id number]) Completed:14-Sep-2014 Comments: Verbal order from Dr. James Romero Follow up in 6 months Ordered:12-Aug-2014 PREVNAR 13 VALENT PNEUMOCOCCAL Completed:12-Aug-2014 VACCINE ([id number]) ADMINISTRATION OF PNEUMOCOCCAL Ordered:12-Aug-2014 CONJUGATE VACCINE (G0009) How to access health information Completed:12-Aug-2014 online Follow up in 6 months Ordered: Follow up in 2 months Ordered:26-Oct-2013 ADMIN INFLUENZA VIRUS VAC: FLU VACC Completed:26-Oct-2013 PRSV FREE INC ANTIG (05218) ADMINISTRATION OF INFLUENZA VIRUS Ordered:26-Oct-2013 VACCINE (G0008) Follow up in 6 months Ordered:30-Apr-2013 Follow up - Keep appt as scheduled Ordered:02-Jan-2013 Follow up in 6 months Ordered:30-Oct-2012 Follow up in 3 months Ordered:01-Aug-2012 Follow up in 3 months Ordered:01-May-2012 Follow up in 6 weeks Ordered: ADMINISTRATION OF INFLUENZA VIRUS Ordered:14-May-2011 VACCINE (G0008) FLU VACC PRSV FREE INC ANTIG Completed:14-May-2011 (26437) Follow up in 2 months Ordered:14-May-2011 Follow up in 2 months Ordered: Annual Eye Exam Completed:22-Nov-2008 Colonoscopy, Screening Completed: Colonoscopy, Screening Completed:06-Oct-2014 Flu Vaccine Completed:26-Oct-2013 Flu Vaccine Completed:06-Jun-2012 Comments: formerly named [facility] Flu Vaccine Completed:14-May-2011 Comments: high dose Pneumovax Completed:2008nar 13 Completed:12-Aug-2014 PSA Completed:28-Apr-2012 Comments: (16.45) PSA Completed:10-Apr-2011 Comments: (5.95) PSA Completed:23-Jun-2012 Comments: (8.05) PSA Completed:14-Oct-2012 Comments: (8.11) PSA Completed: Comments: (5.60) PSA Completed:15-Sep-2013 Comments: (5.40) PSA Completed: Comments: (6.15) PSA Completed:24-Aug-2014 Comments: (7.11) Immunization Name Dates Details Fluzone Administered on:14-May-2011 Comments: Site: Deltoid (Left); high dose Lot #: [id number] Influenza, preserv. free, enhanced immunogncty, IM Administered on:2013 Comments: Site: Deltoid (Left) Lot #: [id number] Pneumococcal conjugate vaccine, 13 valent, IM Administered on:12-Aug-2014 Comments: Site: Deltoid (Left) Lot #: [id number] Social History Name Dates Details Tobacco use: [...] Comments: The left neck Final 10:36 SINGLE (81245) lesion was removed and also the left [...] not sent to pathology. 10:35 PUNCH BIOPSY (16391) Comments: After Final FIRST BIOPSY cleansing the [...] have a artifical heart valve? No 09:28 ([facility]) (02792) 9. Saturday Dosage 5.0 mg (Normal) 7. [...] order include: Draw Charge[i], Protime & INR (08701) Draw Drawn (Normal) 28-Oct-2014 PT (PROTHROMBIN TIME) Comments: Items in this order include: Draw Charge[i], Protime & INRDoes patient have a artifical heart valve? No 10:48 ([facility]) (77198) 9. Saturday Dosage 7.5 mg (Normal) 8. [...] order include: Draw Charge[i], Protime & INR (55912) Draw Drawn (Normal) 29-Nov-2014 PT (PROTHROMBIN TIME) Comments: Items in this order include: Draw Charge[i], Protime & INRDoes patient have a artifical heart valve? No 10:28 ([facility]) (13433) 9. Saturday Dosage 5.0 mg (Normal) 8. [...] order include: Draw Charge[i], Protime & INR (16017) Draw Drawn (Normal) 21-Sep-2014 PT (PROTHROMBIN TIME) Comments: Items in this order include: Draw Charge[i], Protime & INRDoes patient have a artifical heart valve? No 10:08 ([facility]) (88337) 9. Saturday Dosage 5.0 mg (Normal) 7. [...] order include: Draw Charge[i], Protime & INR (27474) Draw Drawn (Normal) 24-Aug-2014 Routine Venipuncture Comments: Items in this order include: Protime & INR, Draw Charge[i] 09:59 (95255) Draw Drawn (Normal) 09:59 PT (PROTHROMBIN TIME) Comments: Items in this order include: Protime & INR, Draw Charge[i]INR value > 3.0 given to Estella by Beny Buckley patient have a artifical heart valve? No ([facility]) (45255) 9. Saturday Dosage 7.5 mg (Normal) 7. [...] Panel, Hemoglobin A1C, Urine Microalbumin, CBC ONE! (03741) manual diff Not Indicated (Normal) mpv 9.60 [...] Metabolic Panel, Hemoglobin A1C, Urine Microalbumin, CBC (93547) U A:C RATIO <30 mg/g Normal Range: <30 mg/g Normal (Normal) U CREAT 200 mg/dL (Normal) Range: 10-300 U ALB 80 mg/L (Abnormal) Range: 10 mg/L 09:59 HEMOGLOBIN GLYCLATED Comments: Items in this order include: Digoxin , PSA, Basic Metabolic Panel, Hemoglobin A1C, Urine Microalbumin, CBC (HGB A1C) (43594) A1C 5.9 % (Normal) Range: 4.6-6.2 Comments: Increased risk of diabetes. 09:59 [facility] (03731) Comments: Items in this order include: Digoxin, [...] Panel, Hemoglobin A1C, Urine Microalbumin, CBC ANTIGEN) (17995) PSA 7.11 ng/mL (Abnormal) Range: 0.00-4.00 09:59 DIGOXIN (66291) Comments: Items in this order include: Digoxin, PSA , Basic Metabolic Panel, Hemoglobin A1C, Urine Microalbumin, CBCTime of Last Dose? 08/23/2014 8:00 AMDosage? 0.25 DIG 0.36 ng/mL (Abnormal) Range: 0.90-2.00 05-Aug-2014 PT (PROTHROMBIN TIME) Comments: Items in this order include: Draw Charge[i], Protime & INRDoes patient have a artifical heart valve? No 10:48 ([facility]) (70091) 8. Saturday Dosage 7.5 mg (Normal) 9. [...] order include: Draw Charge[i], Protime & INR (15500) Draw Drawn (Normal) 03-Jun-2014 PT (PROTHROMBIN TIME) Comments: Items in this order include: Draw Charge[i], Protime & INRDoes patient have a artifical heart valve? No 13:56 ([facility]) (34566) 9. Saturday Dosage 7.5 mg (Normal) 8. [...] order include: Draw Charge[i], Protime & INR (78486) Draw Drawn (Normal) PT (PROTHROMBIN TIME) Comments: Items in this order include: Protime & INRDoes patient have a artifical heart valve? No 14:25 ([facility]) (08940) 9. Saturday Dosage 5.0 mg (Normal) 8. [...] this order include: Draw Charge[i], PSA ANTIGEN) (70852) PSA 6.15 ng/mL (Abnormal) Range: 0.00-4.00 14:25 Routine Venipuncture Comments: A copy of this report will be faxed to: Bettie oBswell in this order include: Draw Charge[i], PSA (35759) Draw Drawn (Normal) HEMOGLOBIN GLYCLATED Comments: Items in this order include: Hemoglobin A1C, Draw Charge[i], Comprehensive Metabolic Panel, Uric Acid 15:06 (HGB A1C) (90553) A1C 5.7 % (Normal) Range: 4.6-6.2 15:06 CMP (88535) Comments: Items in this order include: Hemoglobin [...] (Normal) Range: 135-145 15:06 URIC ACID BLOOD (89959) Comments: Items in this order include: Hemoglobin A1C, Draw Charge[i], Comprehensive Metabolic Panel, Uric Acid Uric Acid 8.0 mg/dL (Abnormal) Range: 3.6-7.7 15:06 Routine Venipuncture Comments: Items in this order include: Hemoglobin A1C, Draw Charge[i], Comprehensive Metabolic Panel, Uric Acid (90885) Draw Drawn (Normal) -January-2014 PT (PROTHROMBIN TIME) Comments: Items in this order include: Draw Charge[i], Protime & INRDoes patient have a artifical heart valve? No 14:27 ([facility]) (23436) 8. Saturday Dosage 5.0 mg (Normal) 9. [...] order include: Draw Charge[i], Protime & INR (08792) Draw Drawn (Normal) 26-Oct-2013 Draw Charge[i] Comments: Items in this order include: Basic Metabolic Panel, Draw Charge[i] 17:08 Draw Drawn (Normal) 17:05 [facility] (48439) Comments: Items in this order include: Basic [...] patient have a artifical heart valve? No ([facility]) (93895) 9. Saturday Dosage 5.0 mg (Normal) 7. [...] order include: Draw Charge[i], Protime & INR (39150) Draw Drawn (Normal) 15-Sep-2013 PSA (PROSTATE SPECIFIC Comments: A copy of this report will be faxed to: Bettie Boswell in this order include: A COPY TO [kyung] PSAPSA allowed more than once a year due to being a Diagonistic PSA not a screening PSA 11:05 ANTIGEN) (34792) PSA 5.40 ng/mL (Abnormal) Range: 0.00-4.00 11:05 [...] this order include: Comprehensive Metabolic Panel, Hemoglobin [id number] Hgb A1C was ran 99 Days ago. Check by MARGARITA 10:38 (HGB A1C) (58259) A1C 5.9 % (Normal) Range: 4.6-6.2 Comments: Increased risk of diabetes. 10:38 [facility] (27906) Comments: Items in this order include: Comprehensive Metabolic Panel, Hemoglobin [id number] Hgb A1C was ran 99 Days ago. [...] patient have a artifical heart valve? No ([facility]) (39010) 9. Saturday Dosage 5.0 (cycle of 5,5,7.5 [...] order include: Draw Charge[i], Protime & INR (09034) Draw Drawn (Normal) 10:38 DIGOXIN (56999) Comments: Items in this order include: DigoxinTime of Last Dose? 08/06/2013 8:30 AMDosage? 0.25 mg daily DIG 0.48 ng/mL (Abnormal) Range: 0.90-2.00 30-Apr-2013 HEMOGLOBIN GLYCLATED Comments: Items in this order include: Comprehensive Metabolic Panel, CBC, Hemoglobin X1POhkt Hgb A1C was ran 225 Days ago. Check by ms 11:58 (HGB A1C) (17469) A1C 6.1 % (Normal) Range: 4.6-6.2 11:58 CBC MALE- ORDER THIS Comments: Items in this order include: Comprehensive Metabolic Panel, CBC, Hemoglobin Q3SCzyd Hgb A1C was ran 225 Days ago. Check by ms ONE! (52622) manual diff Not Indicated (Normal) mpv 4.88 [...] 6.15 10*3/uL (Normal) Range: 4.50-10.50 11:58 CMP (54797) Comments: Items in this order include: Comprehensive Metabolic Panel, CBC, Hemoglobin Q4BBcmt Hgb A1C was ran 225 Days ago. [...] patient have a artifical heart valve? No ([facility]) (19468) 4. Saturday Dosage Repeat mg (Normal) 3. Saturday Dosage 7.5 mg (Normal) 2. Saturday Dosage 5.0 mg (Normal) 1. Saturday Dosage 5.0 mg (Normal) INR 2.60 (Normal) PT 26.8 s (Abnormal) Range: 10.4-12.4 PT (PROTHROMBIN TIME) Comments: Items in this order include: Draw Charge[i], Protime & INRDoes patient have a artifical heart valve? No 15:12 ([facility]) (25061) 5. Dosage Repeat mg (Normal) 4. Saturday Dosage 5.0 mg (Normal) 3. Saturday Dosage 5.0 mg (Normal) 2. Saturday Dosage 7.5 mg (Normal) INR 2.31 (Normal) PT 24.0 s (Abnormal) Range: 10.4-12.4 15:12 Routine Venipuncture Comments: Items in this order include: Draw Charge[i], Protime & INR (49500) Draw Drawn (Normal) PSA (PROSTATE SPECIFIC Comments: A copy of this report will be faxed to: Bettie Boswell in this order include: PSA, Draw Charge[i]PSA allowed more than once a year due to being a Diagonistic PSA not a screening PSA 10:00 ANTIGEN) (64748) PSA 5.60 ng/mL (Abnormal) Range: 0.00-4.00 10:00 [...] patient have a artifical heart valve? No ([facility]) (95226) 3. Saturday Dosage Repeat mg (Normal) 2. Saturday Dosage 7.5 mg (Normal) 1. Saturday Dosage 5.0 mg (Normal) INR 2.64 (Normal) PT 27.2 s (Abnormal) Range: 10.4-12.4 10:09 Routine Venipuncture Comments: Items in this order include: Draw Charge[i], Protime & INR (93500) Draw Drawn (Normal) 16-Dec-2012 PT (PROTHROMBIN TIME) Comments: Items in this order include: Draw Charge[i], Protime & INRDoes patient have a artifical heart valve? No 10:46 ([facility]) (55891) 4. Saturday Dosage Repeat mg (Normal) 3. Saturday Dosage 5.0 mg (Normal) 2. Saturday Dosage 7.5 mg (Normal) INR 2.13 (Normal) PT 22.2 s (Abnormal) Range: 10.4-12.4 10:46 Routine Venipuncture Comments: Items in this order include: Draw Charge[i], Protime & INR (26676) Draw Drawn (Normal) 26-Nov-2012 Routine Venipuncture Comments: Items in this order include: Protime & INR, Draw Charge[i] 15:05 (72812) Draw Drawn (Normal) 15:05 PT (PROTHROMBIN TIME) Comments: Items in this order include: Protime & INR, Draw Charge[i]Does patient have a artifical heart valve? No ([facility]) (92276) 4. Saturday Dosage 5.0 Repeat mg (Normal) 3. Saturday Dosage 5.0 mg (Normal) 2. Saturday Dosage 7.5 mg (Normal) INR 1.34 (Normal) PT 14.4 s (Abnormal) Range: 10.4-12.4 30-Oct-2012 PT (PROTHROMBIN TIME) Comments: Items in this order include: Draw Charge[i], Protime & INRINR value > 3.0 given to BW by Froy Chávez patient have a artifical heart valve? No 10:38 ([facility]) (96369) 7. Saturday Dosage 7.5 mg (Normal) 6. [...] order include: Draw Charge[i], Protime & INR (70622) Draw Drawn (Normal) 11:33 BMP Comments: Items [...] Dose? 10/29/2012 8:00 PMDosage? 0.25 mg Daily (39044) DIG 1.64 ng/mL (Normal) Range: 0.90-2.00 14-Oct-2012 PSA (PROSTATE SPECIFIC Comments: A copy of this report will be faxed to: Bettie Boswell in this order include: Draw Charge[i], Protime & INR, PSAPSA allowed more than once a year due to being a Diagonistic PSA not a screening PSA 10:25 ANTIGEN) (19417) PSA 8.11 ng/mL (Abnormal) Range: 0.00-4.00 10:25 PT (PROTHROMBIN TIME) Comments: PSA allowed more than once a year due to being a Diagonistic PSA not a screening PSACoumadin dosage=5,5,5,5,7.5 repeatDoes patient have a artifical heart valve? No ([facility]) (82769) 7. Saturday Dosage 7.5 mg (Normal) 6. [...] a Diagonistic PSA not a screening PSA (84307) Draw Drawn (Normal) 12-Sep-2012 PT (PROTHROMBIN TIME) Comments: Items in this order include: Draw Charge[i], Protime & INRDoes patient have a artifical heart valve? No 09:16 ([facility]) (80834) 6. Saturday Dosage Repeat mg (Normal) 5. Dosage 7.5 mg (Normal) 4. Saturday Dosage 5.0 mg (Normal) 3. Saturday Dosage 5.0 mg (Normal) 2. Saturday Dosage 5.0 mg (Normal) 1. Saturday Dosage 5.0 mg (Normal) INR 2.48 (Normal) PT 25.7 s (Abnormal) Range: 10.4-12.4 09:16 Routine Venipuncture Comments: Items in this order include: Draw Charge[i], Protime & INR (86550) Draw Drawn (Normal) 18-Aug-2012 PT (PROTHROMBIN TIME) Comments: Items in this order include: Protime & INRDoes patient have a artifical heart valve? No 11:44 ([facility]) (75953) 7. Saturday Dosage 5.0 mg (Normal) 6. [...] Days ago. Check by KB (HGB A1C) (32421) A1C 6.2 % (Normal) Range: 4.6-6.2 Comments: High risk of diabetes. 31-Jul-2012 PT (PROTHROMBIN TIME) Comments: Items in this order include: Draw Charge[i], Protime & INRINR value > 3.0 given to Estella by Beny Buckley patient have a artifical heart valve? No 13:32 ([facility]) (11564) 7. Saturday Dosage 5.0 mg (Normal) 6. [...] order include: Draw Charge[i], Protime & INR (30452) Draw Drawn (Normal) 23-Jun-2012 PSA (PROSTATE SPECIFIC Comments: A copy of this report will be faxed to: Bettie Boswell in this order include: Draw Charge[i], Protime & INR, PSAPSA allowed more than once a year due to being a Diagonistic PSA not a screening PSA 15:50 ANTIGEN) (92820) PSA 8.05 ng/mL (Abnormal) Range: 0.00-4.00 15:50 PT (PROTHROMBIN TIME) Comments: A copy of this report will be faxed to: Bettie Boswell in this order include: Draw Charge[i], Protime & INR , PSAPSA allowed more than once a year due to being a Diagonistic PSA not a screening ([facility]) (23453) PSADoes patient have a artifical heart valve? [...] a Diagonistic PSA not a screening PSA (04945) Draw Drawn (Normal) 13-May-2012 Draw Charge[i] Comments: [...] results to dr. hema boswell 14:28 ANTIGEN) (45471) PSA 16.45 ng/mL (Abnormal) Range: 0.00-4.00 14:28 PT (PROTHROMBIN TIME) Comments: Coumadin Dosage=5,5,5,7.5 Repeat. Took 7.5 on 04-27-12. ([facility]) (13067) 5. Dosage 7.5 Repeat mg (Normal) 4. Saturday Dosage 5.0 mg (Normal) 3. Saturday Dosage 5.0 mg (Normal) 2. Saturday Dosage 5.0 mg (Normal) 1. Saturday Dosage 7.5 mg (Normal) INR 2.17 (Normal) PT 22.7 s (Abnormal) Range: 10.4-12.4 14:28 Routine Venipuncture (18118) Draw Drawn (Normal) 13-May-2012 PSA (PROSTATE SPECIFIC Comments: A copy of this report will be faxed to: Bettie Boswell in this order include: PSA, Draw Charge[i]PSA allowed more than once a year due to being a Diagonistic PSA not a screening PSA 09:20 ANTIGEN) (76938) PSA 11.30 ng/mL (Abnormal) Range: 0.00-4.00 TSH (THYROID Comments: Items in this order include: TSH 16:40 STIMULATING HORMONE) (03951) TSH 1.36 uIU/ml (Normal) Range: 0.34-5.60 14:50 PT (PROTHROMBIN TIME) Comments: Items in this order include: Draw Charge[i], Basic Metabolic Panel, Hemoglobin A1C, Protime & INRLast Hbg A1C was ran 218 Days ago. Check by DL ([facility]) (07928) 5. Dosage Repeat mg (Normal) 4. Saturday [...] ran 218 Days ago. Check (HGB A1C) (81406) by DLplease draw enough blood so if [...] ran 218 Days ago. Check by DL (94137) Draw Drawn (Normal) DIGOXIN, DRUG ASSAY Comments: Items in this order include: CBC, Comprehensive Metabolic Panel, CKI, Digoxin, Draw Charge[i] 09:08 (02820) DIG 0.38 ng/mL (Abnormal) Range: 0.90-2.00 09:08 CK Comments: Items in this order include: CBC, Comprehensive Metabolic Panel, CKI, Digoxin, Draw Charge[i] CKI 143 U/L (Normal) Range: 39-308 09:08 CMP (66815) Comments: Items in this order include: CBC, [...] Metabolic Panel, CKI, Digoxin, Draw Charge[i] ONE! (60946) manual diff Not Indicated (Normal) mpv 6.84 [...] order include: Protime & INR, Draw Charge[i] (21580) Draw Drawn (Normal) 16:45 PT (PROTHROMBIN TIME) Comments: Items in this order include: Protime & INR, Draw Charge[i]Coumadin doasage=5,5,7.5 Repeat ([facility]) (41551) 7. Saturday Dosage 5.0 mg (Normal) 6. [...] order include: Draw Charge[i], PSA 11:11 ANTIGEN) (60710) PSA 6.92 ng/mL (Abnormal) Range: 0.00-4.00 11:11 Routine Venipuncture Comments: A copy of this report will be faxed to: Bettie Boswell in this order include: Draw Charge[i], PSA (83302) Draw Drawn (Normal) 17-Oct-2011 Routine Venipuncture 10:18 (53964) Draw Drawn (Normal) 10:18 TESTOSTERONE, FREE, Comments: Items in this order include: Protime & INR, Draw Charge[i], TESTOSTERONE, FREE, BIOAVAILABLE, AND TOTAL, LC/MS/ MSTesting performed at: [facility] [facility] [place], [address] [address] BIOAVAILABLE, [place], [address], Machinery Mover: Michael Chávez [facility] TOTAL, LC/MS/MS ALBUMIN,SERUM 4.4 [...] and benefits counseling. 10:18 PT (PROTHROMBIN TIME) ([facility]) (44282) 7. Saturday Dosage 5.0 mg (Normal) 6. [...] Panel, Hemoglobin A1C, Draw Charge[i] (HGB A1C) (08308) A1C 6.1 % (Normal) Range: 4.6-6.2 13:29 [...] (Normal) Range: 135-145 13:29 DIGOXIN, DRUG ASSAY (26068) DIG 0.85 ng/mL (Abnormal) Range: 0.90-2.00 07-Aug-2011 TESTOSTERONE, FREE, Comments: Items in this order include: TESTOSTERONE, FREE, BIOAVAILABLE, AND TOTAL, LC/MS/MSTesting performed at: [place], [address] [address] , [place] , [address], [place] 12:53 WEAKLY BOUND AND TOTAL ratory Director: Michael Chávez MD.[facility] (58227) ALBUMIN,SERUM 4.4 g/dL (Normal) Range: 3.6-5.1 SEX [...] INR, Draw Charge[i]no change in coumadin dose ([facility]) (28077) 7. Saturday Dosage 7.5 mg (Normal) 6. [...] Metabolic Panel, Protime & INR, Draw Charge[i] ([facility]) (51147) 7. Saturday Dosage 5.0 mg (Normal) 5. [...] Boswell in this order include: PSA ANTIGEN) (40376) PSA 5.95 ng/mL (Abnormal) Range: 0.00-4.00 CBC-MALE- ORDER THIS Comments: Items in this order include : Hemoglobin A1C, Comprehensive Metabolic Panel, CBC 11:56 ONE! (66919) manual diff Not Indicated (Normal) mpv 7.65 [...] 6.24 10*3/uL (Normal) Range: 4.50-10.50 11:56 CMP (28507) Comments: Items in this order include: Hemoglobin [...] this order include: Digoxin, Draw Charge[i] 15:17 (22071) DIG 1.18 ng/mL (Normal) Range: 0.90-2.00 HEMOGLOBIN GLYCLATED Comments: Items in this order include: Hemoglobin A1C, Comprehensive Metabolic Panel, CBC 11:56 (HGB A1C) (37564) A1C 6.6 % (Abnormal) Range: 4.6-6.2 Comments: Consistent with diabetes. 13:48 PT (PROTHROMBIN TIME) Comments: change to coumadin 5mg x 2 day then 7.5mg x1 repeat the cycle; Items in this order include: Protime & INR, Draw Charge[i]cyclechange to coumadin 5mg x 2 day then 7.5mg x1 repeat the ([facility]) (41801) 6. Saturday Dosage 7.5 mg (Normal) 7. Saturday Dosage 5.0 mg (Normal) 5. Dosage 5.0 mg (Normal) 4. Saturday Dosage 5.0 mg (Normal) 2. Saturday Dosage 5.0 mg (Normal) 3. Mónica Dosage 7.5 mg (Normal) 1. Willie Dosage 5.0 mg (Normal) INR 1.55 (Normal) PT 15.2 s (Abnormal) Range: 10.4-12.4 PSA (PROSTATE SPECIFIC Comments: A copy of this report will be faxed to: Bettie Boswell in this order include: Protime & INR, PSA, Draw Charge[i] 09:43 ANTIGEN) (88260) PSA 5.84 ng/mL (Abnormal) Range: 0.00-4.00 09:43 PT (PROTHROMBIN TIME) Comments: no change in coumadin; no change in coumadin ([facility]) (99231) 7. day Dosage 7.5 mg (Normal) 6. Saturday Dosage 5.0 mg (Normal) 5. Dosage 7.5 mg (Normal) 4. Saturday Dosage 5.0 mg (Normal) 3. Saturday Dosage 5.0 mg (Normal) 1. Saturday Dosage 5.0 mg (Normal) 2. Saturday Dosage 7.5 mg (Normal) INR 3.45 (Normal) PT 32.9 s (Abnormal) Range: 10.4-12.4 23-Nov-2010 PT (PROTHROMBIN TIME) 10:03 ([facility]) (01524) 6. Joao Dosage 7.5 mg (Normal) 7. Saturday Dosage 5 mg (Normal) 1. Saturday Dosage 5 mg (Normal) 2. Saturday Dosage 7.5 mg (Normal) 3. Saturday Dosage 5 mg (Normal) 4. Saturday Dosage 7.5 mg (Normal) 5. Dosage 5 mg (Normal) INR 2.16 (Normal) PT 21.0 s (Abnormal) Range: 10.4-12.4 19-Oct-2010 PT (PROTHROMBIN TIME) 15:16 ([facility]) (32417) 6. Joao Dosage 5 mg (Normal) 7. Saturday Dosage 7.5 mg (Normal) 3. Saturday Dosage 7.5 mg (Normal) 4. Saturday Dosage 5 mg (Normal) 5. Dosage 7.5 mg (Normal) 1. Willie Dosage 7.5 mg (Normal) 2. Saturday Dosage 5 mg (Normal) INR 2.13 (Normal) PT 20.7 s (Abnormal) Range: 10.4-12.4 12-Sep-2010 PT (PROTHROMBIN TIME) 11:03 ([facility]) (35881) INR 2.57 (Normal) PT (PROTHROMBIN TIME) 24.8 s (Abnormal) Range: 11.5-13.5 22-Aug-2010 PT (PROTHROMBIN TIME) 13:41 ([facility]) (65441) 09-Aug-2010 PSA, MEDICARE (G0103) Comments: please fax to dr hema boswell 09:54 PSA (Medicare) 4.83 ng/mL (Abnormal) Range: 0 - 4 09:34 PT (PROTHROMBIN TIME) ([facility]) (61828) INR 2.68 (Normal) PT (PROTHROMBIN TIME) 25.8 s (Abnormal) Range: 11.5-13.5 27-Jun-2010 PT (PROTHROMBIN TIME) 08:38 ([facility]) (04185) 26-Jun-2010 PT (PROTHROMBIN TIME) 16:21 ([facility]) (64277) INR 1.89 (Normal) PT (PROTHROMBIN TIME) 18.4 s (Abnormal) Range: 11.5-13.5 Treatment Plan PSA (PROSTATE SPECIFIC ANTIGEN) (50307); Ordered: 02/15/[address] Boswell ; Ordered: 02/15/2015PT (PROTHROMBIN TIME) ([facility]) (18737); Ordered: 2014Routine Venipuncture (33630); Ordered: 02/03/2015 Advance Directives Encounters Lab entry only - Elevated PSA (790.93) On [facility] 10:10 to 10:11 Lab entry only - Encounter for long-term (current) use of anticoagulants ( V58.61 | Z79.01) On 14-Jan-2015 [facility] 14:52 to 14:53 Lab entry only - Encounter for long-term (current) use of anticoagulants ( V58.61 | Z79.01), Encounter for long-term (current) use of anticoagulants ( V58.61 | Z79.01) On 29-Nov-2014 [facility] 12:31 to 15:09 Medication Entry - Diabetes mellitus (250.00 | E11.9) On 12-Nov-2014 [facility] 11:46 to 11:53 Medication Entry - Cellulitis, leg (682.6 | L03.119) On 11-Nov-2014 [facility] 09:48 to 10:00 Office Visit - Gout [...] "Transition into care": He feels things are improved.[facility] Historical Summary On 27-Oct-2014 [facility] 15:03 to 15:08 Lab entry only - Fibrillation, atrial (427.31), Encounter for long-term ( current) use of anticoagulants (V58.61 | Z79.01) On 18-Oct-2014 [facility] 17:08 to 17:09 Medication Entry - Gout (274.9 | M10.9) On 12-Oct-2014 [facility] 16:17 to 16:22 Lab entry only - Encounter for long-term (current) use of anticoagulants ( V58.61 | Z79.01) On 21-Sep-2014 [facility] 15:31 to 15:33 Radiology Visit - Carotid stenosis (433.10 | I65.29) On 14-Sep-2014 [facility] 09:33 to 09:36 Lab entry only - Encounter for long-term (current) use of anticoagulants ( V58.61 | Z79.01) On 24-Aug-2014 [facility] 16:31 to 16:34 Office Visit - Health education (V65.40 | Z71.9), Prevnar (PCV13)FOR MEDICARE USE ONLY Pneumovax injection (V03.82) 24565, Encounter for long-term ( current) use of [...] lifeline screening. He mentions the "discoloration" of ankles.[facility] Historical Summary On 11-Aug-2014 [facility] 16:16 to 16:19 Lab entry only - Fibrillation, atrial (427.31), Encounter for long-term ( current) use of anticoagulants (V58.61 | Z79.01) On 06-Aug-2014 [facility] 16:41 to 16:43 Medication Entry - Benign essential hypertension (401.1 | I10) On 21-Jun-2014 [facility] 11:12 to 11:14 Lab entry only - Encounter for long-term (current) use of anticoagulants ( V58.61 | Z79.01) On 03-Jun-2014 [facility] 16:13 to 16:15 Lab entry only - Encounter for long-term (current) use of anticoagulants ( V58.61 | Z79.01) On [facility] 13:22 to 13:23 Lab entry only - Elevated PSA (790.93), Encounter for long-term (current) use of anticoagulants (V58.61 | Z79.01) On [facility] 14:27 to 14:28 Office Visit - Foot [...] thing in the morning and on stairs. [facility] Historical Summary On 28-Dec-2013 [facility] 12:26 to 12:29 Medication Entry - Encounter for long-term (current) use of anticoagulants ( V58.61 | Z79.01), Diabetes mellitus (250.00 | E11.9), Fibrillation, atrial ( 427.31) On 03-Nov-2013 [facility] 09:01 to 11:53 Medication Entry - Fibrillation, atrial (427.31), Diabetes mellitus (250.00 | E11.9) On 30-Oct-2013 [facility] 15:55 to 16:00 Lab entry only - Encounter for long-term (current) use of anticoagulants ( V58.61 | Z79.01) On 27-Oct-2013 [facility] 17:57 to 17:59 Office Visit - Need [...] M.D. after being in the hospital at [facility] on 10/16/13 & discharged on 10/17/13 dx jasmeet diaz, inr was done prior to visit.) . Note for "Transition into care": He passed a kidney stone a week ago.[facility] Historical Summary On 23-Oct-2013 [facility] 14:42 to 14:45 Lab entry only - Encounter for long-term (current) use of anticoagulants ( V58.61 | Z79.01) On 20-Oct-2013 [facility] 16:31 to 16:33 Lab entry only - Encounter for long-term (current) use of anticoagulants ( V58.61 | Z79.01) On 16-Sep-2013 [facility] 10:14 to 10:15 Lab entry only - Elevated PSA (790.93) On 15-Sep-2013 [facility] 11:11 to 11:12 Lab entry only - Encounter for long-term (current) use of anticoagulants ( V58.61 | Z79.01) On 07-Aug-2013 [facility] 14:32 to 14:33 Lab entry only - Benign essential hypertension (401.1 | I10), Diabetes mellitus (250.00 | E11.9) On 07-Aug-2013 [facility] 11:18 to 11:19 Lab entry only - Encounter for long-term (current) use of anticoagulants ( V58.61 | Z79.01) On 01-May-2013 [facility] 10:33 to 10:38 Office Visit - Diabetes [...] He did miss some meds while he traveled.[facility] Historical Summary On 29-Apr-2013 [facility] 11:46 to 11:49 Lab entry only - Encounter for long-term (current) use of anticoagulants ( V58.61 | Z79.01) On [facility] 16:39 to 16:42 Lab entry only - Encounter for long-term (current) use of anticoagulants ( V58.61 | Z79.01) On [facility] 19:40 to 19:42 Lab entry only - Elevated PSA (790.93) On [facility] 12:03 to 12:07 Office Visit - Laryngotracheobronchitis [...] for "Cough": He has not had an antibiotic.[facility] Lab entry only - Encounter for long-term (current) use of anticoagulants ( V58.61 | Z79.01) On 16-Dec-2012 [facility] 18:21 to 18:23 Lab entry only - Encounter for long-term (current) use of anticoagulants ( V58.61 | Z79.01) On 27-Nov-2012 [facility] 16:52 to 16:53 Lab entry only - Encounter for long-term (current) use of anticoagulants ( V58.61) On 26-Nov-2012 [facility] 15:04 to 15:05 Office Visit - Encounter [...] first thing in the morning and on stairs.[facility] Historical Summary On 29-Oct-2012 [facility] 16:15 to 16:17 Lab entry only - Encounter for long-term (current) use of anticoagulants ( V58.61) On 15-Oct-2012 [facility] 09:51 to 09:57 Lab entry only - Encounter for long-term (current) use of anticoagulants ( V58.61), Elevated PSA (790.93) On 14-Oct-2012 [facility] 10:25 to 10:26 Lab entry only - Encounter for long-term (current) use of anticoagulants ( V58.61) On 12-Sep-2012 [facility] 13:44 to 13:45 Medication Entry - Edema (782.3), Fibrillation, atrial (427.31) On 20-Aug-2012 [facility] 11:10 to 11:12 Medication Entry - Fibrillation, atrial (427.31), Edema (782.3) On 19-Aug-2012 [facility] 17:29 to 18:11 Medication Entry - Encounter for long-term (current) use of anticoagulants ( V58.61), Fibrillation, atrial (427.31), Diabetes mellitus (250.00) On 2011 [facility] 17:44 to 17:53 Office Visit - 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), Inflamed seborrheic keratosis (702.11), Hyperglycemia (790.29), Encounter for long-term (current) use of anticoagulants (V58.61), Fibrillation, atrial (427.31) On 01-Aug-2012 Encounter Reason: Follow up for chronic condition - The patient feels well with minor complaints (here today for a 3 month follow up with Dr. Romero ) .[facility] 09:34 to 10:39 Medication Entry - Encounter for long-term (current) use of anticoagulants ( V58.61) On 31-Jul-2012 [facility] 18:21 to 18:22 Historical Summary On 31-Jul-2012 [facility] 11:40 to 11:42 Lab entry only - Encounter for long-term (current) use of anticoagulants ( V58.61) On 23-Jun-2012 [facility] 18:47 to 18:52 Lab entry only - Elevated PSA (790.93), Encounter for long-term (current) use of anticoagulants (V58.61) On 23-Jun-2012 [facility] 15:48 to 15:53 Office Visit - Adjustment disorder with depressed mood (309.0), Encounter for long-term (current) use of anticoagulants (V58.61), Elevated PSA (790.93) On Encounter Reason: Follow up for chronic condition - The patient feels well with minor complaints (here for a 6 week follow up visit do to a new medication but did not start the medication).[facility] 11:19 to 13: 39 Historical Summary On 30-Apr-2012 [facility] 11:50 to 11:52 Lab entry only - Encounter for long-term (current) use of anticoagulants ( V58.61) On 28-Apr-2012 [facility] 17:23 to 17:26 Lab entry only - Elevated PSA (790.93), Encounter for long-term (current) use of anticoagulants (V58.61) On 28-Apr-2012 [facility] 14:19 to 14:22 Office Visit - Hyperglycemia [...] , had lab done prior to appt today).[facility] Lab entry only - Edema (782.3), Hyperglycemia (790.29), Encounter for long- term (current) use of anticoagulants (V58.61) On [facility] 11:06 to 11:14 Lab entry only - Elevated PSA (790.93), Fibrillation, atrial (427.31), Edema ( 782.3) On [facility] 09:02 to 09:05 Lab entry only - Encounter for long-term (current) use of anticoagulants ( V58.61) On [facility] 16:44 to 16:45 Medication Entry On 26-Oct-2011 [facility] 13:30 to 13:32 Lab entry only - Elevated PSA (790.93) On 23-Oct-2011 [facility] 11:01 to 11:04 Lab entry only - Encounter for long-term (current) use of anticoagulants ( V58.61), Low testosterone (257.2) On 17-Oct-2011 [facility] 10:15 to 10:17 Medication Entry - Fibrillation, atrial (427.31) On 04-Oct-2011 [facility] 09:26 to 09:38 Medication Entry - Fibrillation, atrial (427.31), Edema (782.3), Encounter for long-term (current) use of anticoagulants (V58.61), Benign prostatic hypertrophy without lower urinary tract symptoms (LUTS) (600.00) On 02-Oct-2011 [facility] 18:56 to 19:02 Medication Entry - Encounter for long-term (current) use of anticoagulants ( V58.61), Fibrillation, atrial (427.31), Edema (782.3) On 26-Sep-2011 [facility] 11:06 to 11:11 Medication Entry - Fibrillation, atrial (427.31), Encounter for long-term ( current) use of anticoagulants (V58.61) On 24-Sep-2011 [facility] 10:41 to 10:49 Lab entry only - Low testosterone (257.2) On 10-Aug-2011 [facility] 13:03 to 13:05 Lab entry only - Hyperglycemia (790.29), Encounter for long-term (current) use of anticoagulants (V58.61), Fibrillation, atrial (427.31) On 08-Aug-2011 [facility] 13:27 to 13:29 Office Visit - Fibrillation, [...] he 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." [facility] Historical Summary On 06-Aug-2011 [facility] 12:22 to 12:24 Medication Entry - Fibrillation, atrial (427.31) On 05-Jun-2011 [facility] 08:54 to 08:59 Lab entry only - Encounter for long-term (current) use of anticoagulants ( V58.61) On 15-May-2011 [facility] 18:48 to 18:50 Office Visit - Edema [...] up is diabetes, hypertension, cardiovascular disorder and other.[facility] Medication Entry - Benign prostatic hypertrophy without lower urinary tract symptoms (LUTS) (600.00) On 19-Apr-2011 [facility] 08:49 to 08:51 Lab entry only - Benign prostatic hypertrophy without lower urinary tract symptoms (LUTS) (600.00) On 10-Apr-2011 [facility] 15:15 to 15:19 Office Visit - Elevated [...] seeing dr. boswell the middle of apr.). [facility] Historical Summary On [facility] 16:05 to 16:18 Lab entry only - Encounter for long-term (current) use of anticoagulants ( V58.61) On [facility] 17:34 to 17:36 Lab entry only - Encounter for long-term (current) use of anticoagulants ( V58.61), Elevated PSA (790.93) On [facility] 09:42 to 09:43 Lab entry only - Encounter for long-term (current) use of anticoagulants ( V58.61) On 24-Nov-2010 [facility] 08:55 to 08:57 Lab entry only - Encounter for long-term (current) use of anticoagulants ( V58.61) On 20-Oct-2010 [facility] 14:42 to 14:46 Historical Summary - Encounter for long-term (current) use of anticoagulants ( V58.61) On 13-Sep-2010 [facility] 10:53 to 10:59 Historical Summary 12-Sep-2010 to 13-Sep-2010 [facility] Lab entry only - Encounter for long-term (current) use of anticoagulants ( V58.61) On 14-Aug-2010 [facility] 17:44 to 17:49 Historical Summary - Elevated PSA (790.93) 09-Aug-2010 to 15-Aug-2010 [facility] Lab entry only - Encounter for long-term (current) use of anticoagulants ( V58.61) 27-Jun-2010 to 28-Jun-2010 [facility] Lab entry only - Encounter for long-term (current) use of anticoagulants ( V58.61) On 26-Jun-2010 [facility] 16:21 to 22:23 Insurance Vijay Yuan; gwen [employer]Medicare [facility] [employer]
--- OUTSIDE RECORDS SUMMARY | 2017-10-22 18:02 | External Medical Summary | Referral Summary ---
:1940 Author Organization [facility] Address [address] [place] [address] [place] [id number] Care Team Providers Name Role Phone Blayne Blake Primary Care Physician Encounter VC Date(s): 02/07/16 - 02/07/16 [facility] [address] [place] [phone] Discharge Diagnosis: Shingles outbreak Discharge Diagnosis: Chalazion of right eye Discharge Disposition: 01-Home or Self Care Attending Physician: Blayne Blake DO Admitting Physician: Blayne Blake DO Vital Signs Most recent to oldest [Reference Range]: 1 Temperature Tympanic [36.6-38.1 degC] 34.8 degC *LOW* (02/07/16 8:18 AM) Peripheral Pulse Rate [60-100 bpm] 58 bpm *LOW* (02/07/16 8:18 AM) Blood Pressure [90-140/60-90 mmHg] 134/80 mmHg (02/07/16 8:18 AM) Problem List No data available for [...] Visit Note Author: Blayne Blake DO Date: 02/07/16 Assessment/Plan 1.Shingles outbreak 1. His dermatomal rash presentation is consistent with shingles. 2. I agree with treatment with valacyclovir and prednisone. 3. Recommended shingles vaccination 2 weeks after the prednisone therapy. 4. Follow-up if he starts having postherpetic neuralgia, we may consider gabapentin versus Lyrica versus amitriptyline. Ordered: Office Visit Level 3 Est 85414 2.Chalazion of right eye 1. He has a small chalazion on the right upper eyelid, since this is bothersome for the patient, I recommended coming in at his convenience for excision. Ordered: Office Visit Level 3 Est [id number]
--- OUTSIDE RECORDS SUMMARY | 2017-10-22 18:02 | External Medical Summary | Continuity of Care Document ---
:1940 Author Organization [facility] Address [address] [place] [address] Phone Care Team Providers Name Role Phone [...] Prevnar (PCV13)FOR MEDICARE USE ONLY Pneumovax injection 93828 (V03.82) Status: Active Renal lithiasis (592.0, N20.0) [...] appt as scheduled Ordered:28-Oct-2014 CAROTID BILATERAL US (87611) Completed:14-Sep-2014 Comments: Verbal order from Dr. James Romero Follow up in 6 months Ordered:12-Aug-2014 PREVNAR 13 VALENT PNEUMOCOCCAL Completed:12-Aug-2014 VACCINE (51244) ADMINISTRATION OF PNEUMOCOCCAL Ordered:12-Aug-2014 CONJUGATE VACCINE (G0009) How to access health information Completed:12-Aug-2014 online Follow up in 6 months Ordered: Follow up in 2 months Ordered:26-Oct-2013 ADMIN INFLUENZA VIRUS VAC: FLU VACC Completed:26-Oct-2013 PRSV FREE INC ANTIG (75006) ADMINISTRATION OF INFLUENZA VIRUS Ordered:26-Oct-2013 VACCINE (G0008) Follow up in 6 months Ordered:30-Apr-2013 Follow up - Keep appt as scheduled Ordered:02-Jan-2013 Follow up in 6 months Ordered:30-Oct-2012 Follow up in 3 months Ordered:01-Aug-2012 Follow up in 3 months Ordered:01-May-2012 Follow up in 6 weeks Ordered: ADMINISTRATION OF INFLUENZA VIRUS Ordered:14-May-2011 VACCINE (G0008) FLU VACC PRSV FREE INC ANTIG Completed:14-May-2011 (38594) Follow up in 2 months Ordered:14-May-2011 Follow up in 2 months Ordered: Annual Eye Exam Completed:22-Nov-2008 Colonoscopy, Screening Completed: Colonoscopy, Screening Completed:06-Oct-2014 Flu Vaccine Completed:26-Oct-2013 Flu Vaccine Completed:06-Jun-2012 Comments: [facility] Flu Vaccine Completed:14-May-2011 Comments: high dose Pneumovax Completed:2008 13 Completed:12-Aug-2014 PSA Completed:28-Apr-2012 Comments: (16.45) PSA Completed:10-Apr-2011 Comments: (5.95) PSA Completed:23-Jun-2012 Comments: (8.05) PSA Completed:14-Oct-2012 Comments: (8.11) PSA Completed: Comments: (5.60) PSA Completed:15-Sep-2013 Comments: (5.40) PSA Completed: Comments: (6.15) PSA Completed:24-Aug-2014 Comments: (7.11) Immunization Name Dates Details Fluzone Administered on:14-May-2011 Comments: Site: Deltoid (Left); high dose Lot #: [id number] Influenza, preserv. free, enhanced immunogncty, IM Administered on:2013 Comments: Site: Deltoid (Left) Lot #: [id number] Pneumococcal conjugate vaccine, 13 valent, IM Administered on:12-Aug-2014 Comments: Site: Deltoid (Left) Lot #: [id number] Social History Name Dates Details Tobacco use: [...] Comments: The left neck Final 10:36 SINGLE (40485) lesion was removed and also the left [...] not sent to pathology. 10:35 PUNCH BIOPSY (38490) Comments: After Final FIRST BIOPSY cleansing the [...] have a artifical heart valve? No 09:28 (HarQen) (92537) 9. Saturday Dosage 5.0 mg (Normal) 7. [...] order include: Draw Charge[i], Protime & INR (11681) Draw Drawn (Normal) 28-Oct-2014 PT (PROTHROMBIN TIME) Comments: Items in this order include: Draw Charge[i], Protime & INRDoes patient have a artifical heart valve? No 10:48 (HarQen) (81460) 9. Saturday Dosage 7.5 mg (Normal) 8. [...] order include: Draw Charge[i], Protime & INR (02805) Draw Drawn (Normal) 29-Nov-2014 PT (PROTHROMBIN TIME) Comments: Items in this order include: Draw Charge[i], Protime & INRDoes patient have a artifical heart valve? No 10:28 (HarQen) (19240) 9. Saturday Dosage 5.0 mg (Normal) 8. [...] order include: Draw Charge[i], Protime & INR (89325) Draw Drawn (Normal) 21-Sep-2014 PT (PROTHROMBIN TIME) Comments: Items in this order include: Draw Charge[i], Protime & INRDoes patient have a artifical heart valve? No 10:08 (HarQen) (34329) 9. Saturday Dosage 5.0 mg (Normal) 7. [...] order include: Draw Charge[i], Protime & INR (98802) Draw Drawn (Normal) 24-Aug-2014 Routine Venipuncture Comments: Items in this order include: Protime & INR, Draw Charge[i] 09:59 (48390) Draw Drawn (Normal) 09:59 PT (PROTHROMBIN TIME) Comments: Items in this order include: Protime & INR, Draw Charge[i]INR value > 3.0 given to Estella by Beny Buckley patient have a artifical heart valve? No ([facility] (94716) 9. Saturday Dosage 7.5 mg (Normal) 7. [...] Panel, Hemoglobin A1C, Urine Microalbumin, CBC ONE! (71987) manual diff Not Indicated (Normal) mpv 9.60 [...] Metabolic Panel, Hemoglobin A1C, Urine Microalbumin, CBC (00911) U A:C RATIO <30 mg/g Normal Range: <30 mg/g Normal (Normal) U CREAT 200 mg/dL (Normal) Range: 10-300 U ALB 80 mg/L (Abnormal) Range: 10 mg/L 09:59 HEMOGLOBIN GLYCLATED Comments: Items in this order include: Digoxin , PSA, Basic Metabolic Panel, Hemoglobin A1C, Urine Microalbumin, CBC (HGB A1C) (80748) A1C 5.9 % (Normal) Range: 4.6-6.2 Comments: Increased risk of diabetes. 09:59 [facility] (48618) Comments: Items in this order include: Digoxin, [...] Panel, Hemoglobin A1C, Urine Microalbumin, CBC ANTIGEN) (10853) PSA 7.11 ng/mL (Abnormal) Range: 0.00-4.00 09:59 DIGOXIN (63682) Comments: Items in this order include: Digoxin, PSA , Basic Metabolic Panel, Hemoglobin A1C, Urine Microalbumin, CBCTime of Last Dose? 08/23/2014 8:00 AMDosage? 0.25 DIG 0.36 ng/mL (Abnormal) Range: 0.90-2.00 05-Aug-2014 PT (PROTHROMBIN TIME) Comments: Items in this order include: Draw Charge[i], Protime & INRDoes patient have a artifical heart valve? No 10:48 (HarQen) (27129) 8. Saturday Dosage 7.5 mg (Normal) 9. [...] order include: Draw Charge[i], Protime & INR (43215) Draw Drawn (Normal) 03-Jun-2014 PT (PROTHROMBIN TIME) Comments: Items in this order include: Draw Charge[i], Protime & INRDoes patient have a artifical heart valve? No 13:56 (HarQen) (26487) 9. Saturday Dosage 7.5 mg (Normal) 8. [...] order include: Draw Charge[i], Protime & INR (90071) Draw Drawn (Normal) PT (PROTHROMBIN TIME) Comments: Items in this order include: Protime & INRDoes patient have a artifical heart valve? No 14:25 ([facility]) (75521) 9. Saturday Dosage 5.0 mg (Normal) 8. [...] this order include: Draw Charge[i], PSA ANTIGEN) (25850) PSA 6.15 ng/mL (Abnormal) Range: 0.00-4.00 14:25 Routine Venipuncture Comments: A copy of this report will be faxed to: Bettie Boswell in this order include: Draw Charge[i], PSA (47771) Draw Drawn (Normal) HEMOGLOBIN GLYCLATED Comments: Items in this order include: Hemoglobin A1C, Draw Charge[i], Comprehensive Metabolic Panel, Uric Acid 15:06 (HGB A1C) (56219) A1C 5.7 % (Normal) Range: 4.6-6.2 15:06 CMP (66232) Comments: Items in this order include: Hemoglobin [...] (Normal) Range: 135-145 15:06 URIC ACID BLOOD (63995) Comments: Items in this order include: Hemoglobin A1C, Draw Charge[i], Comprehensive Metabolic Panel, Uric Acid Uric Acid 8.0 mg/dL (Abnormal) Range: 3.6-7.7 15:06 Routine Venipuncture Comments: Items in this order include: Hemoglobin A1C, Draw Charge[i], Comprehensive Metabolic Panel, Uric Acid (41426) Draw Drawn (Normal) -January-2014 PT (PROTHROMBIN TIME) Comments: Items in this order include: Draw Charge[i], Protime & INRDoes patient have a artifical heart valve? No 14:27 ([facility]) (26183) 8. Saturday Dosage 5.0 mg (Normal) 9. [...] order include: Draw Charge[i], Protime & INR (65249) Draw Drawn (Normal) 26-Oct-2013 Draw Charge[i] Comments: Items in this order include: Basic Metabolic Panel, Draw Charge[i] 17:08 Draw Drawn (Normal) 17:05 [facility] (80043) Comments: Items in this order include: Basic [...] patient have a artifical heart valve? No ([facility]) (31905) 9. Saturday Dosage 5.0 mg (Normal) 7. [...] order include: Draw Charge[i], Protime & INR (74343) Draw Drawn (Normal) 15-Sep-2013 PSA (PROSTATE SPECIFIC Comments: A copy of this report will be faxed to: Bettie Boswell in this order include: A COPY TO [kyung] PSAPSA allowed more than once a year due to being a Diagonistic PSA not a screening PSA 11:05 ANTIGEN) (94155) PSA 5.40 ng/mL (Abnormal) Range: 0.00-4.00 11:05 [...] this order include: Comprehensive Metabolic Panel, Hemoglobin H4GNmef Hgb A1C was ran 99 Days ago. Check by MARGARITA 10:38 (HGB A1C) (84436) A1C 5.9 % (Normal) Range: 4.6-6.2 Comments: Increased risk of diabetes. 10:38 [facility] (47609) Comments: Items in this order include: Comprehensive Metabolic Panel, Hemoglobin G9RAdgp Hgb A1C was ran 99 Days ago. [...] patient have a artifical heart valve? No ([facility]) (55606) 9. Saturday Dosage 5.0 (cycle of 5,5,7.5 [...] order include: Draw Charge[i], Protime & INR (27521) Draw Drawn (Normal) 10:38 DIGOXIN (33570) Comments: Items in this order include: DigoxinTime of Last Dose? 08/06/2013 8:30 AMDosage? 0.25 mg daily DIG 0.48 ng/mL (Abnormal) Range: 0.90-2.00 30-Apr-2013 HEMOGLOBIN GLYCLATED Comments: Items in this order include: Comprehensive Metabolic Panel, CBC, Hemoglobin K1RHtuf Hgb A1C was ran 225 Days ago. Check by ms 11:58 (HGB A1C) (58778) A1C 6.1 % (Normal) Range: 4.6-6.2 11:58 CBC MALE- ORDER THIS Comments: Items in this order include: Comprehensive Metabolic Panel, CBC, Hemoglobin X7XNasg Hgb A1C was ran 225 Days ago. Check by ms ONE! (79282) manual diff Not Indicated (Normal) mpv 4.88 [...] 6.15 10*3/uL (Normal) Range: 4.50-10.50 11:58 CMP (26362) Comments: Items in this order include: Comprehensive Metabolic Panel, CBC, Hemoglobin V2YHmpr Hgb A1C was ran 225 Days ago. [...] patient have a artifical heart valve? No ([facility]) (60261) 4. Saturday Dosage Repeat mg (Normal) 3. Saturday Dosage 7.5 mg (Normal) 2. Saturday Dosage 5.0 mg (Normal) 1. Saturday Dosage 5.0 mg (Normal) INR 2.60 (Normal) PT 26.8 s (Abnormal) Range: 10.4-12.4 PT (PROTHROMBIN TIME) Comments: Items in this order include: Draw Charge[i], Protime & INRDoes patient have a artifical heart valve? No 15:12 ([facility]) (60355) 5. Dosage Repeat mg (Normal) 4. Saturday Dosage 5.0 mg (Normal) 3. Saturday Dosage 5.0 mg (Normal) 2. Saturday Dosage 7.5 mg (Normal) INR 2.31 (Normal) PT 24.0 s (Abnormal) Range: 10.4-12.4 15:12 Routine Venipuncture Comments: Items in this order include: Draw Charge[i], Protime & INR (01691) Draw Drawn (Normal) PSA (PROSTATE SPECIFIC Comments: A copy of this report will be faxed to: Bettie Boswell in this order include: PSA, Draw Charge[i]PSA allowed more than once a year due to being a Diagonistic PSA not a screening PSA 10:00 ANTIGEN) (90923) PSA 5.60 ng/mL (Abnormal) Range: 0.00-4.00 10:00 [...] patient have a artifical heart valve? No ([facility]) (24674) 3. Saturday Dosage Repeat mg (Normal) 2. Saturday Dosage 7.5 mg (Normal) 1. Saturday Dosage 5.0 mg (Normal) INR 2.64 (Normal) PT 27.2 s (Abnormal) Range: 10.4-12.4 10:09 Routine Venipuncture Comments: Items in this order include: Draw Charge[i], Protime & INR (94168) Draw Drawn (Normal) 16-Dec-2012 PT (PROTHROMBIN TIME) Comments: Items in this order include: Draw Charge[i], Protime & INRDoes patient have a artifical heart valve? No 10:46 ([facility]) (61635) 4. Saturday Dosage Repeat mg (Normal) 3. Saturday Dosage 5.0 mg (Normal) 2. Saturday Dosage 7.5 mg (Normal) INR 2.13 (Normal) PT 22.2 s (Abnormal) Range: 10.4-12.4 10:46 Routine Venipuncture Comments: Items in this order include: Draw Charge[i], Protime & INR (45627) Draw Drawn (Normal) 26-Nov-2012 Routine Venipuncture Comments: Items in this order include: Protime & INR, Draw Charge[i] 15:05 (55668) Draw Drawn (Normal) 15:05 PT (PROTHROMBIN TIME) Comments: Items in this order include: Protime & INR, Draw Charge[i]Does patient have a artifical heart valve? No ([facility]) (14046) 4. Saturday Dosage 5.0 Repeat mg (Normal) 3. Saturday Dosage 5.0 mg (Normal) 2. Saturday Dosage 7.5 mg (Normal) INR 1.34 (Normal) PT 14.4 s (Abnormal) Range: 10.4-12.4 30-Oct-2012 PT (PROTHROMBIN TIME) Comments: Items in this order include: Draw Charge[i], Protime & INRINR value > 3.0 given to BW by Froy Chávez patient have a artifical heart valve? No 10:38 ([facility]) (32160) 7. Saturday Dosage 7.5 mg (Normal) 6. [...] order include: Draw Charge[i], Protime & INR (05492) Draw Drawn (Normal) 11:33 BMP Comments: Items [...] Dose? 10/29/2012 8:00 PMDosage? 0.25 mg Daily (18705) DIG 1.64 ng/mL (Normal) Range: 0.90-2.00 14-Oct-2012 PSA (PROSTATE SPECIFIC Comments: A copy of this report will be faxed to: Bettie Boswell in this order include: Draw Charge[i], Protime & INR, PSAPSA allowed more than once a year due to being a Diagonistic PSA not a screening PSA 10:25 ANTIGEN) (71197) PSA 8.11 ng/mL (Abnormal) Range: 0.00-4.00 10:25 PT (PROTHROMBIN TIME) Comments: PSA allowed more than once a year due to being a Diagonistic PSA not a screening PSACoumadin dosage=5,5,5,5,7.5 repeatDoes patient have a artifical heart valve? No ([facility]) (75444) 7. Saturday Dosage 7.5 mg (Normal) 6. [...] a Diagonistic PSA not a screening PSA (37128) Draw Drawn (Normal) 12-Sep-2012 PT (PROTHROMBIN TIME) Comments: Items in this order include: Draw Charge[i], Protime & INRDoes patient have a artifical heart valve? No 09:16 (HarQen) (52309) 6. Saturday Dosage Repeat mg (Normal) 5. Dosage 7.5 mg (Normal) 4. Saturday Dosage 5.0 mg (Normal) 3. Saturday Dosage 5.0 mg (Normal) 2. Saturday Dosage 5.0 mg (Normal) 1. Saturday Dosage 5.0 mg (Normal) INR 2.48 (Normal) PT 25.7 s (Abnormal) Range: 10.4-12.4 09:16 Routine Venipuncture Comments: Items in this order include: Draw Charge[i], Protime & INR (36103) Draw Drawn (Normal) 18-Aug-2012 PT (PROTHROMBIN TIME) Comments: Items in this order include: Protime & INRDoes patient have a artifical heart valve? No 11:44 (HarQen) (79135) 7. Saturday Dosage 5.0 mg (Normal) 6. [...] Days ago. Check by KB (HGB A1C) (13107) A1C 6.2 % (Normal) Range: 4.6-6.2 Comments: High risk of diabetes. 31-Jul-2012 PT (PROTHROMBIN TIME) Comments: Items in this order include: Draw Charge[i], Protime & INRINR value > 3.0 given to Estella by Beny Buckley patient have a artifical heart valve? No 13:32 ([facility]) (32470) 7. Saturday Dosage 5.0 mg (Normal) 6. [...] order include: Draw Charge[i], Protime & INR (54548) Draw Drawn (Normal) 23-Jun-2012 PSA (PROSTATE SPECIFIC Comments: A copy of this report will be faxed to: Bettie Boswell in this order include: Draw Charge[i], Protime & INR, PSAPSA allowed more than once a year due to being a Diagonistic PSA not a screening PSA 15:50 ANTIGEN) (94166) PSA 8.05 ng/mL (Abnormal) Range: 0.00-4.00 15:50 PT (PROTHROMBIN TIME) Comments: A copy of this report will be faxed to: Bettie Boswell in this order include: Draw Charge[i], Protime & INR , PSAPSA allowed more than once a year due to being a Diagonistic PSA not a screening ([facility]) (38033) Evaes patient have a artifical heart valve? [...] a Diagonistic PSA not a screening PSA (52299) Draw Drawn (Normal) 13-May-2012 Draw Charge[i] Comments: [...] results to dr. hema boswell 14:28 ANTIGEN) (70218) PSA 16.45 ng/mL (Abnormal) Range: 0.00-4.00 14:28 PT (PROTHROMBIN TIME) Comments: Coumadin Dosage=5,5,5,7.5 Repeat. Took 7.5 on 04-27-12. ([facility]) (78971) 5. Dosage 7.5 Repeat mg (Normal) 4. Saturday Dosage 5.0 mg (Normal) 3. Saturday Dosage 5.0 mg (Normal) 2. Saturday Dosage 5.0 mg (Normal) 1. Saturday Dosage 7.5 mg (Normal) INR 2.17 (Normal) PT 22.7 s (Abnormal) Range: 10.4-12.4 14:28 Routine Venipuncture (85649) Draw Drawn (Normal) 13-May-2012 PSA (PROSTATE SPECIFIC Comments: A copy of this report will be faxed to: Bettie Boswell in this order include: PSA, Draw Charge[i]PSA allowed more than once a year due to being a Diagonistic PSA not a screening PSA 09:20 ANTIGEN) (49542) PSA 11.30 ng/mL (Abnormal) Range: 0.00-4.00 44-[id number]-[id number] TSH (THYROID Comments: Items in this order include: TSH 16:40 STIMULATING HORMONE) (52115) TSH 1.36 uIU/ml (Normal) Range: 0.34-5.60 14:50 PT (PROTHROMBIN TIME) Comments: Items in this order include: Draw Charge[i], Basic Metabolic Panel, Hemoglobin A1C, Protime & INRLast Hbg A1C was ran 218 Days ago. Check by DL ([facility]) (09724) 5. Dosage Repeat mg (Normal) 4. Saturday [...] ran 218 Days ago. Check (HGB A1C) (26135) by DLplease draw enough blood so if [...] ran 218 Days ago. Check by DL (23681) Draw Drawn (Normal) DIGOXIN, DRUG ASSAY Comments: Items in this order include: CBC, Comprehensive Metabolic Panel, CKI, Digoxin, Draw Charge[i] 09:08 (97457) DIG 0.38 ng/mL (Abnormal) Range: 0.90-2.00 09:08 CK Comments: Items in this order include: CBC, Comprehensive Metabolic Panel, CKI, Digoxin, Draw Charge[i] CKI 143 U/L (Normal) Range: 39-308 09:08 CMP (11851) Comments: Items in this order include: CBC, [...] Metabolic Panel, CKI, Digoxin, Draw Charge[i] ONE! (31295) manual diff Not Indicated (Normal) mpv 6.84 [...] order include: Protime & INR, Draw Charge[i] (99676) Draw Drawn (Normal) 16:45 PT (PROTHROMBIN TIME) Comments: Items in this order include: Protime & INR, Draw Charge[i]Coumadin doasage=5,5,7.5 Repeat ([facility]) (52735) 7. Saturday Dosage 5.0 mg (Normal) 6. [...] order include: Draw Charge[i], PSA 11:11 ANTIGEN) (25055) PSA 6.92 ng/mL (Abnormal) Range: 0.00-4.00 11:11 Routine Venipuncture Comments: A copy of this report will be faxed to: Bettie Boswell in this order include: Draw Charge[i], PSA (62222) Draw Drawn (Normal) 17-Oct-2011 Routine Venipuncture 10:18 (69199) Draw Drawn (Normal) 10:18 TESTOSTERONE, FREE, Comments: Items in this order include: Protime & INR, Draw Charge[i], TESTOSTERONE, FREE, BIOAVAILABLE, AND TOTAL, LC/MS/ MSTesting performed at: [facility] [place], [address] [address], [place], [address], Back Seam Stitcher: Michael Chávez MDQuest TOTAL, LC/MS/MS ALBUMIN,SERUM 4.4 [...] and benefits counseling. 10:18 PT (PROTHROMBIN TIME) ([facility]) (13999) 7. Saturday Dosage 5.0 mg (Normal) 6. [...] Panel, Hemoglobin A1C, Draw Charge[i] (HGB A1C) (98335) A1C 6.1 % (Normal) Range: 4.6-6.2 13:29 [...] (Normal) Range: 135-145 13:29 DIGOXIN, DRUG ASSAY (31713) DIG 0.85 ng/mL (Abnormal) Range: 0.90-2.00 07-Aug-2011 TESTOSTERONE, FREE, Comments: Items in this order include: TESTOSTERONE, FREE, BIOAVAILABLE, AND TOTAL, LC/MS/MSTesting performed at: [place], [address] [address], [place] , [address], [place] 12:53 WEAKLY BOUND AND TOTAL ratory Director: Michael Chávez MD.[facility] (48377) ALBUMIN,SERUM 4.4 g/dL (Normal) Range: 3.6-5.1 SEX [...] INR, Draw Charge[i]no change in coumadin dose ([facility]) (45293) 7. Saturday Dosage 7.5 mg (Normal) 6. [...] Metabolic Panel, Protime & INR, Draw Charge[i] ([facility]) (36482) 7. Saturday Dosage 5.0 mg (Normal) 5. [...] Boswell in this order include: PSA ANTIGEN) (61505) PSA 5.95 ng/mL (Abnormal) Range: 0.00-4.00 CBC-MALE- ORDER THIS Comments: Items in this order include : Hemoglobin A1C, Comprehensive Metabolic Panel, CBC 11:56 ONE! (32360) manual diff Not Indicated (Normal) mpv 7.65 [...] 6.24 10*3/uL (Normal) Range: 4.50-10.50 11:56 CMP (88281) Comments: Items in this order include: Hemoglobin [...] this order include: Digoxin, Draw Charge[i] 15:17 (41890) DIG 1.18 ng/mL (Normal) Range: 0.90-2.00 HEMOGLOBIN GLYCLATED Comments: Items in this order include: Hemoglobin A1C, Comprehensive Metabolic Panel, CBC 11:56 (HGB A1C) (32161) A1C 6.6 % (Abnormal) Range: 4.6-6.2 Comments: Consistent with diabetes. 13:48 PT (PROTHROMBIN TIME) Comments: change to coumadin 5mg x 2 day then 7.5mg x1 repeat the cycle; Items in this order include: Protime & INR, Draw Charge[i]cyclechange to coumadin 5mg x 2 day then 7.5mg x1 repeat the ([facility]) (99212) 6. Saturday Dosage 7.5 mg (Normal) 7. [...] & INR, PSA, Draw Charge[i] 09:43 ANTIGEN) (22122) PSA 5.84 ng/mL (Abnormal) Range: 0.00-4.00 09:43 PT (PROTHROMBIN TIME) Comments: no change in coumadin; no change in coumadin ([facility]) (31767) 7. Saturday Dosage 7.5 mg (Normal) 6. Saturday Dosage 5.0 mg (Normal) 5. Dosage 7.5 mg (Normal) 4. Saturday Dosage 5.0 mg (Normal) 3. Saturday Dosage 5.0 mg (Normal) 1. Saturday Dosage 5.0 mg (Normal) 2. Saturday Dosage 7.5 mg (Normal) INR 3.45 (Normal) PT 32.9 s (Abnormal) Range: 10.4-12.4 23-Nov-2010 PT (PROTHROMBIN TIME) 10:03 ([facility]) (92506) 6. Saturday Dosage 7.5 mg (Normal) 7. Saturday Dosage 5 mg (Normal) 1. Saturday Dosage 5 mg (Normal) 2. Saturday Dosage 7.5 mg (Normal) 3. Saturday Dosage 5 mg (Normal) 4. Saturday Dosage 7.5 mg (Normal) 5. Dosage 5 mg (Normal) INR 2.16 (Normal) PT 21.0 s (Abnormal) Range: 10.4-12.4 19-Oct-2010 PT (PROTHROMBIN TIME) 15:16 ([facility]) (03413) 6. Joao Dosage 5 mg (Normal) 7. Saturday Dosage 7.5 mg (Normal) 3. Saturday Dosage 7.5 mg (Normal) 4. Saturday Dosage 5 mg (Normal) 5. Dosage 7.5 mg (Normal) 1. Willie Dosage 7.5 mg (Normal) 2. Saturday Dosage 5 mg (Normal) INR 2.13 (Normal) PT 20.7 s (Abnormal) Range: 10.4-12.4 12-Sep-2010 PT (PROTHROMBIN TIME) 11:03 ([facility]) (43933) INR 2.57 (Normal) PT (PROTHROMBIN TIME) 24.8 s (Abnormal) Range: 11.5-13.5 22-Aug-2010 PT (PROTHROMBIN TIME) 13:41 ([facility]) (11079) 09-Aug-2010 PSA, MEDICARE (G0103) Comments: please fax to dr hema boswell 09:54 PSA (Medicare) 4.83 ng/mL (Abnormal) Range: 0 - 4 09:34 PT (PROTHROMBIN TIME) ([facility]) (76732) INR 2.68 (Normal) PT (PROTHROMBIN TIME) 25.8 s (Abnormal) Range: 11.5-13.5 27-Jun-2010 PT (PROTHROMBIN TIME) 08:38 ([facility]) (94803) 26-Jun-2010 PT (PROTHROMBIN TIME) 16:21 ([facility]) (23492) INR 1.89 (Normal) PT (PROTHROMBIN TIME) 18.4 s (Abnormal) Range: 11.5-13.5 Treatment Plan PT (PROTHROMBIN TIME) ([facility]) (78216); Ordered: 02/03/2015Routine Venipuncture ( 10450); Ordered: 02/03/2015 Advance Directives Encounters Lab entry only - Encounter for long-term (current) use of anticoagulants ( V58.61 | Z79.01) On 14-Jan-2015 [facility] 14:52 to 14:53 Lab entry only - Encounter for long-term (current) use of anticoagulants ( V58.61 | Z79.01), Encounter for long-term (current) use of anticoagulants ( V58.61 | Z79.01) On 29-Nov-2014 [facility] 12:31 to 15:09 Medication Entry - Diabetes mellitus (250.00 | E11.9) On 12-Nov-2014 [facility] 11:46 to 11:53 Medication Entry - Cellulitis, leg (682.6 | L03.119) On 11-Nov-2014 [facility] 09:48 to 10:00 Office Visit - Gout [...] "Transition into care": He feels things are improved.[facility] Historical Summary On 27-Oct-2014 [facility] 15:03 to 15:08 Lab entry only - Fibrillation, atrial (427.31), Encounter for long-term ( current) use of anticoagulants (V58.61 | Z79.01) On 18-Oct-2014 [facility] 17:08 to 17:09 Medication Entry - Gout (274.9 | M10.9) On 12-Oct-2014 [facility] 16:17 to 16:22 Lab entry only - Encounter for long-term (current) use of anticoagulants ( V58.61 | Z79.01) On 21-Sep-2014 [facility] 15:31 to 15:33 Radiology Visit - Carotid stenosis (433.10 | I65.29) On 14-Sep-2014 [facility] 09:33 to 09:36 Lab entry only - Encounter for long-term (current) use of anticoagulants ( V58.61 | Z79.01) On 24-Aug-2014 [facility] 16:31 to 16:34 Office Visit - Health education (V65.40 | Z71.9), Prevnar (PCV13)FOR MEDICARE USE ONLY Pneumovax injection (V03.82) 79812, Encounter for long-term ( current) use of [...] lifeline screening. He mentions the "discoloration" of ankles.[facility] Historical Summary On 11-Aug-2014 [facility] 16:16 to 16:19 Lab entry only - Fibrillation, atrial (427.31), Encounter for long-term ( current) use of anticoagulants (V58.61 | Z79.01) On 06-Aug-2014 [facility] 16:41 to 16:43 Medication Entry - Benign essential hypertension (401.1 | I10) On 21-Jun-2014 [facility] 11:12 to 11:14 Lab entry only - Encounter for long-term (current) use of anticoagulants ( V58.61 | Z79.01) On 03-Jun-2014 [facility] 16:13 to 16:15 Lab entry only - Encounter for long-term (current) use of anticoagulants ( V58.61 | Z79.01) On [facility] 13:22 to 13:23 Lab entry only - Elevated PSA (790.93), Encounter for long-term (current) use of anticoagulants (V58.61 | Z79.01) On [facility] 14:27 to 14:28 Office Visit - Foot [...] thing in the morning and on stairs. [facility] Historical Summary On 28-Dec-2013 [facility] 12:26 to 12:29 Medication Entry - Encounter for long-term (current) use of anticoagulants ( V58.61 | Z79.01), Diabetes mellitus (250.00 | E11.9), Fibrillation, atrial ( 427.31) On 03-Nov-2013 [facility] 09:01 to 11:53 Medication Entry - Fibrillation, atrial (427.31), Diabetes mellitus (250.00 | E11.9) On 30-Oct-2013 [facility] 15:55 to 16:00 Lab entry only - Encounter for long-term (current) use of anticoagulants ( V58.61 | Z79.01) On 27-Oct-2013 [facility] 17:57 to 17:59 Office Visit - Need [...] He passed a kidney stone a week ago.[facility] Historical Summary On 23-Oct-2013 [facility] 14:42 to 14:45 Lab entry only - Encounter for long-term (current) use of anticoagulants ( V58.61 | Z79.01) On 20-Oct-2013 [facility] 16:31 to 16:33 Lab entry only - Encounter for long-term (current) use of anticoagulants ( V58.61 | Z79.01) On 16-Sep-2013 [facility] 10:14 to 10:15 Lab entry only - Elevated PSA (790.93) On 15-Sep-2013 [facility] 11:11 to 11:12 Lab entry only - Encounter for long-term (current) use of anticoagulants ( V58.61 | Z79.01) On 07-Aug-2013 [facility] 14:32 to 14:33 Lab entry only - Benign essential hypertension (401.1 | I10), Diabetes mellitus (250.00 | E11.9) On 07-Aug-2013 [facility] 11:18 to 11:19 Lab entry only - Encounter for long-term (current) use of anticoagulants ( V58.61 | Z79.01) On 01-May-2013 [facility] 10:33 to 10:38 Office Visit - Diabetes [...] He did miss some meds while he traveled.[facility] Historical Summary On 29-Apr-2013 [facility] 11:46 to 11:49 Lab entry only - Encounter for long-term (current) use of anticoagulants ( V58.61 | Z79.01) On [facility] 16:39 to 16:42 Lab entry only - Encounter for long-term (current) use of anticoagulants ( V58.61 | Z79.01) On [facility] 19:40 to 19:42 Lab entry only - Elevated PSA (790.93) On [facility] 12:03 to 12:07 Office Visit - Laryngotracheobronchitis [...] for "Cough": He has not had an antibiotic.[facility] Lab entry only - Encounter for long-term (current) use of anticoagulants ( V58.61 | Z79.01) On 16-Dec-2012 [facility] 18:21 to 18:23 Lab entry only - Encounter for long-term (current) use of anticoagulants ( V58.61 | Z79.01) On 27-Nov-2012 [facility] 16:52 to 16:53 Lab entry only - Encounter for long-term (current) use of anticoagulants ( V58.61) On 26-Nov-2012 [facility] 15:04 to 15:05 Office Visit - Encounter [...] first thing in the morning and on stairs.[facility] Historical Summary On 29-Oct-2012 [facility] 16:15 to 16:17 Lab entry only - Encounter for long-term (current) use of anticoagulants ( V58.61) On 15-Oct-2012 [facility] 09:51 to 09:57 Lab entry only - Encounter for long-term (current) use of anticoagulants ( V58.61), Elevated PSA (790.93) On 14-Oct-2012 [facility] 10:25 to 10:26 Lab entry only - Encounter for long-term (current) use of anticoagulants ( V58.61) On 12-Sep-2012 [facility] 13:44 to 13:45 Medication Entry - Edema (782.3), Fibrillation, atrial (427.31) On 20-Aug-2012 [facility] 11:10 to 11:12 Medication Entry - Fibrillation, atrial (427.31), Edema (782.3) On 19-Aug-2012 [facility] 17:29 to 18:11 Medication Entry - Encounter for long-term (current) use of anticoagulants ( V58.61), Fibrillation, atrial (427.31), Diabetes mellitus (250.00) On 2011 [facility] 17:44 to 17:53 Office Visit - 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), Inflamed seborrheic keratosis (702.11), Hyperglycemia (790.29), Encounter for long-term (current) use of anticoagulants (V58.61), Fibrillation, atrial (427.31) On 01-Aug-2012 Encounter Reason: Follow up for chronic condition - The patient feels well with minor complaints (here today for a 3 month follow up with Dr. Romero ) .[facility] 09:34 to 10:39 Medication Entry - Encounter for long-term (current) use of anticoagulants ( V58.61) On 31-Jul-2012 [facility] 18:21 to 18:22 Historical Summary On 31-Jul-2012 [facility] 11:40 to 11:42 Lab entry only - Encounter for long-term (current) use of anticoagulants ( V58.61) On 23-Jun-2012 [facility] 18:47 to 18:52 Lab entry only - Elevated PSA (790.93), Encounter for long-term (current) use of anticoagulants (V58.61) On 23-Jun-2012 [facility] 15:48 to 15:53 Office Visit - Adjustment disorder with depressed mood (309.0), Encounter for long-term (current) use of anticoagulants (V58.61), Elevated PSA (790.93) On Encounter Reason: Follow up for chronic condition - The patient feels well with minor complaints (here for a 6 week follow up visit do to a new medication but did not start the medication).[facility] 11:19 to 13: 39 Historical Summary On 30-Apr-2012 [facility] 11:50 to 11:52 Lab entry only - Encounter for long-term (current) use of anticoagulants ( V58.61) On 28-Apr-2012 [facility] 17:23 to 17:26 Lab entry only - Elevated PSA (790.93), Encounter for long-term (current) use of anticoagulants (V58.61) On 28-Apr-2012 [facility] 14:19 to 14:22 Office Visit - Hyperglycemia [...] , had lab done prior to appt today).[facility] Lab entry only - Edema (782.3), Hyperglycemia (790.29), Encounter for long- term (current) use of anticoagulants (V58.61) On [facility] 11:06 to 11:14 Lab entry only - Elevated PSA (790.93), Fibrillation, atrial (427.31), Edema ( 782.3) On [facility] 09:02 to 09:05 Lab entry only - Encounter for long-term (current) use of anticoagulants ( V58.61) On [facility] 16:44 to 16:45 Medication Entry On 26-Oct-2011 [facility] 13:30 to 13:32 Lab entry only - Elevated PSA (790.93) On 23-Oct-2011 [facility] 11:01 to 11:04 Lab entry only - Encounter for long-term (current) use of anticoagulants ( V58.61), Low testosterone (257.2) On 17-Oct-2011 [facility] 10:15 to 10:17 Medication Entry - Fibrillation, atrial (427.31) On 04-Oct-2011 [facility] 09:26 to 09:38 Medication Entry - Fibrillation, atrial (427.31), Edema (782.3), Encounter for long-term (current) use of anticoagulants (V58.61), Benign prostatic hypertrophy without lower urinary tract symptoms (LUTS) (600.00) On 02-Oct-2011 [facility] 18:56 to 19:02 Medication Entry - Encounter for long-term (current) use of anticoagulants ( V58.61), Fibrillation, atrial (427.31), Edema (782.3) On 26-Sep-2011 [facility] 11:06 to 11:11 Medication Entry - Fibrillation, atrial (427.31), Encounter for long-term ( current) use of anticoagulants (V58.61) On 24-Sep-2011 [facility] 10:41 to 10:49 Lab entry only - Low testosterone (257.2) On 10-Aug-2011 [facility] 13:03 to 13:05 Lab entry only - Hyperglycemia (790.29), Encounter for long-term (current) use of anticoagulants (V58.61), Fibrillation, atrial (427.31) On 08-Aug-2011 [facility] 13:27 to 13:29 Office Visit - Fibrillation, [...] he 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." [facility] Historical Summary On 06-Aug-2011 [facility] 12:22 to 12:24 Medication Entry - Fibrillation, atrial (427.31) On 05-Jun-2011 [facility] 08:54 to 08:59 Lab entry only - Encounter for long-term (current) use of anticoagulants ( V58.61) On 15-May-2011 [facility] 18:48 to 18:50 Office Visit - Edema [...] up is diabetes, hypertension, cardiovascular disorder and other.[facility] Medication Entry - Benign prostatic hypertrophy without lower urinary tract symptoms (LUTS) (600.00) On 19-Apr-2011 [facility] 08:49 to 08:51 Lab entry only - Benign prostatic hypertrophy without lower urinary tract symptoms (LUTS) (600.00) On 10-Apr-2011 [facility] 15:15 to 15:19 Office Visit - Elevated [...] seeing dr. boswell the middle of apr.). [facility] Historical Summary On [facility] 16:05 to 16:18 Lab entry only - Encounter for long-term (current) use of anticoagulants ( V58.61) On [facility] 17:34 to 17:36 Lab entry only - Encounter for long-term (current) use of anticoagulants ( V58.61), Elevated PSA (790.93) On [facility] 09:42 to 09:43 Lab entry only - Encounter for long-term (current) use of anticoagulants ( V58.61) On 24-Nov-2010 [facility] 08:55 to 08:57 Lab entry only - Encounter for long-term (current) use of anticoagulants ( V58.61) On 20-Oct-2010 [facility] 14:42 to 14:46 Historical Summary - Encounter for long-term (current) use of anticoagulants ( V58.61) On 13-Sep-2010 [facility] 10:53 to 10:59 Historical Summary 12-Sep-2010 to 13-Sep-2010 [facility] Lab entry only - Encounter for long-term (current) use of anticoagulants ( V58.61) On 14-Aug-2010 [facility] 17:44 to 17:49 Historical Summary - Elevated PSA (790.93) 09-Aug-2010 to 15-Aug-2010 [facility] Lab entry only - Encounter for long-term (current) use of anticoagulants ( V58.61) 27-Jun-2010 to 28-Jun-2010 [facility] Lab entry only - Encounter for long-term (current) use of anticoagulants ( V58.61) On 26-Jun-2010 [facility] 16:21 to 22:23 Insurance Vijay Yuan; a guarantorMedicare [employer] Insurance[employer]
--- OUTSIDE RECORDS SUMMARY | 2017-10-22 18:03 | External Medical Summary | Continuity of Care Document ---
:1940 Author Organization [facility] Address [address] [place] [address] Phone Care Team Providers Name Role Phone [...] Prevnar (PCV13)FOR MEDICARE USE ONLY Pneumovax injection 64166 (V03.82) Status: Active Renal lithiasis (592.0, N20.0) [...] Comments:started on 10/17/13 after being dismissed from [facility] for kidney stone by cac [...] dx kidney stone from being discharged from [facility] testrone cream 10% apply 0.5ml daily [...] appt as scheduled Ordered:28-Oct-2014 CAROTID BILATERAL US ([id number]) Completed:14-Sep-2014 Comments: Verbal order from Dr. James Romero Follow up in 6 months Ordered:12-Aug-2014 PREVNAR 13 VALENT PNEUMOCOCCAL Completed:12-Aug-2014 VACCINE (91046) ADMINISTRATION OF PNEUMOCOCCAL Ordered:12-Aug-2014 CONJUGATE VACCINE (G0009) How to access health information Completed:12-Aug-2014 online Follow up in 6 months Ordered: Follow up in 2 months Ordered:26-Oct-2013 ADMIN INFLUENZA VIRUS VAC: FLU VACC Completed:26-Oct-2013 PRSV FREE INC ANTIG (67707) ADMINISTRATION OF INFLUENZA VIRUS Ordered:26-Oct-2013 VACCINE (G0008) Follow up in 6 months Ordered:30-Apr-2013 Follow up - Keep appt as scheduled Ordered:02-Jan-2013 Follow up in 6 months Ordered:30-Oct-2012 Follow up in 3 months Ordered:01-Aug-2012 Follow up in 3 months Ordered:01-May-2012 Follow up in 6 weeks Ordered: ADMINISTRATION OF INFLUENZA VIRUS Ordered:14-May-2011 VACCINE (G0008) FLU VACC PRSV FREE INC ANTIG Completed:14-May-2011 (05963) Follow up in 2 months Ordered:14-May-2011 Follow up in 2 months Ordered: Annual Eye Exam Completed:22-Nov-2008 Colonoscopy, Screening Completed: Colonoscopy, Screening Completed:06-Oct-2014 Flu Vaccine Completed:26-Oct-2013 Flu Vaccine Completed:06-Jun-2012 Comments: [facility] Flu Vaccine Completed:14-May-2011 Comments: high dose Pneumovax Completed:2008 13 Completed:12-Aug-2014 PSA Completed:28-Apr-2012 Comments: (16.45) PSA Completed:10-Apr-2011 Comments: (5.95) PSA Completed:23-Jun-2012 Comments: (8.05) PSA Completed:14-Oct-2012 Comments: (8.11) PSA Completed: Comments: (5.60) PSA Completed:15-Sep-2013 Comments: (5.40) PSA Completed: Comments: (6.15) PSA Completed:24-Aug-2014 Comments: (7.11) Immunization Name Dates Details Fluzone Administered on:14-May-2011 Comments: Site: Deltoid (Left); high dose Lot #: [id number] Influenza, preserv. free, enhanced immunogncty, IM Administered on:2013 Comments: Site: Deltoid (Left) Lot #: [id number] Pneumococcal conjugate vaccine, 13 valent, IM Administered on:12-Aug-2014 Comments: Site: Deltoid (Left) Lot #: [id number] Social History Name Dates Details Tobacco use: [...] Comments: The left neck Final 10:36 SINGLE (04410) lesion was removed and also the left [...] not sent to pathology. 10:35 PUNCH BIOPSY (35213) Comments: After Final FIRST BIOPSY cleansing the [...] a artifical heart valve? No 10:48 ([facility]) (48437) 9. Saturday Dosage 7.5 mg (Normal) 8. [...] order include: Draw Charge[i], Protime & INR (84432) Draw Drawn (Normal) 29-Nov-2014 PT (PROTHROMBIN TIME) Comments: Items in this order include: Draw Charge[i], Protime & INRDoes patient have a artifical heart valve? No 10:28 ([facility]) (57003) 9. Saturday Dosage 5.0 mg (Normal) 8. [...] order include: Draw Charge[i], Protime & INR (72516) Draw Drawn (Normal) 21-Sep-2014 PT (PROTHROMBIN TIME) Comments: Items in this order include: Draw Charge[i], Protime & INRDolynn patient have a artifical heart valve? No 10:08 ([facility] (85898) 9. Saturday Dosage 5.0 mg (Normal) 7. [...] order include: Draw Charge[i], Protime & INR (35331) Draw Drawn (Normal) 24-Aug-2014 Routine Venipuncture Comments: Items in this order include: Protime & INR, Draw Charge[i] 09:59 (07637) Draw Drawn (Normal) 09:59 PT (PROTHROMBIN TIME) Comments: Items in this order include: Protime & INR, Draw Charge[i]INR value > 3.0 given to Estella by Beny Buckley patient have a artifical heart valve? No ([facility]) (75405) 9. Saturday Dosage 7.5 mg (Normal) 7. [...] Panel, Hemoglobin A1C, Urine Microalbumin, CBC ONE! (68430) manual diff Not Indicated (Normal) mpv 9.60 [...] Metabolic Panel, Hemoglobin A1C, Urine Microalbumin, CBC (60401) U A:C RATIO <30 mg/g Normal Range: <30 mg/g Normal (Normal) U CREAT 200 mg/dL (Normal) Range: 10-300 U ALB 80 mg/L (Abnormal) Range: 10 mg/L 09:59 HEMOGLOBIN GLYCLATED Comments: Items in this order include: Digoxin , PSA, Basic Metabolic Panel, Hemoglobin A1C, Urine Microalbumin, CBC (HGB A1C) (62536) A1C 5.9 % (Normal) Range: 4.6-6.2 Comments: Increased risk of diabetes. 09:59 [facility] (41335) Comments: Items in this order include: Digoxin, [...] Panel, Hemoglobin A1C, Urine Microalbumin, CBC ANTIGEN) (65082) PSA 7.11 ng/mL (Abnormal) Range: 0.00-4.00 09:59 DIGOXIN (16741) Comments: Items in this order include: Digoxin, PSA , Basic Metabolic Panel, Hemoglobin A1C, Urine Microalbumin, CBCTime of Last Dose? 08/23/2014 8:00 AMDosage? 0.25 DIG 0.36 ng/mL (Abnormal) Range: 0.90-2.00 05-Aug-2014 PT (PROTHROMBIN TIME) Comments: Items in this order include: Draw Charge[i], Protime & INRDoes patient have a artifical heart valve? No 10:48 ([facility]) (05508) 8. Saturday Dosage 7.5 mg (Normal) 9. [...] order include: Draw Charge[i], Protime & INR (21165) Draw Drawn (Normal) 03-Jun-2014 PT (PROTHROMBIN TIME) Comments: Items in this order include: Draw Charge[i], Protime & INRDoes patient have a artifical heart valve? No 13:56 ([facility]) (92826) 9. Saturday Dosage 7.5 mg (Normal) 8. [...] order include: Draw Charge[i], Protime & INR (32623) Draw Drawn (Normal) PT (PROTHROMBIN TIME) Comments: Items in this order include: Protime & INRDoes patient have a artifical heart valve? No 14:25 ([facility]) (81213) 9. day Dosage 5.0 mg (Normal) 8. [...] this order include: Draw Charge[i], PSA ANTIGEN) (04163) PSA 6.15 ng/mL (Abnormal) Range: 0.00-4.00 14:25 Routine Venipuncture Comments: A copy of this report will be faxed to: Bettie Boswell in this order include: Draw Charge[i], PSA (03066) Draw Drawn (Normal) HEMOGLOBIN GLYCLATED Comments: Items in this order include: Hemoglobin A1C, Draw Charge[i], Comprehensive Metabolic Panel, Uric Acid 15:06 (HGB A1C) (28050) A1C 5.7 % (Normal) Range: 4.6-6.2 15:06 CMP (78350) Comments: Items in this order include: Hemoglobin [...] (Normal) Range: 135-145 15:06 URIC ACID BLOOD (29307) Comments: Items in this order include: Hemoglobin A1C, Draw Charge[i], Comprehensive Metabolic Panel, Uric Acid Uric Acid 8.0 mg/dL (Abnormal) Range: 3.6-7.7 15:06 Routine Venipuncture Comments: Items in this order include: Hemoglobin A1C, Draw Charge[i], Comprehensive Metabolic Panel, Uric Acid (05739) Draw Drawn (Normal) PT (PROTHROMBIN TIME) Comments: Items in this order include: Draw Charge[i], Protime & INRDoes patient have a artifical heart valve? No 14:27 ([facility]) (50836) 8. Saturday Dosage 5.0 mg (Normal) 9. [...] order include: Draw Charge[i], Protime & INR (99859) Draw Drawn (Normal) 26-Oct-2013 Draw Charge[i] Comments: Items in this order include: Basic Metabolic Panel, Draw Charge[i] 17:08 Draw Drawn (Normal) 17:05 [facility] (36743) Comments: Items in this order include: Basic [...] valve? No ([facility]) (17086) 9. Saturday Dosage 5.0 mg (Normal) 7. [...] order include: Draw Charge[i], Protime & INR (58851) Draw Drawn (Normal) 15-Sep-2013 PSA (PROSTATE SPECIFIC Comments: A copy of this report will be faxed to: Bettie Boswell in this order include: A COPY TO [eliana PSAPSA allowed more than once a year due to being a Diagonistic PSA not a screening PSA 11:05 ANTIGEN) (95509) PSA 5.40 ng/mL (Abnormal) Range: 0.00-4.00 11:05 [...] this order include: Comprehensive Metabolic Panel, Hemoglobin X7ZAgnx Hgb A1C was ran 99 Days ago. Check by MARGARITA 10:38 (HGB A1C) (59635) A1C 5.9 % (Normal) Range: 4.6-6.2 Comments: Increased risk of diabetes. 10:38 [facility] (46344) Comments: Items in this order include: Comprehensive Metabolic Panel, Hemoglobin D2FUpug Hgb A1C was ran 99 Days ago. [...] valve? No ([facility]) (42758) 9. Saturday Dosage 5.0 (cycle of 5,5,7.5 [...] order include: Draw Charge[i], Protime & INR (23874) Draw Drawn (Normal) 10:38 DIGOXIN (86248) Comments: Items in this order include: DigoxinTime of Last Dose? 08/06/2013 8:30 AMDosage? 0.25 mg daily DIG 0.48 ng/mL (Abnormal) Range: 0.90-2.00 30-Apr-2013 HEMOGLOBIN GLYCLATED Comments: Items in this order include: Comprehensive Metabolic Panel, CBC, Hemoglobin G4DIrhu Hgb A1C was ran 225 Days ago. Check by ms 11:58 (HGB A1C) (16673) A1C 6.1 % (Normal) Range: 4.6-6.2 11:58 CBC MALE- ORDER THIS Comments: Items in this order include: Comprehensive Metabolic Panel, CBC, Hemoglobin O3EReva Hgb A1C was ran 225 Days ago. Check by ms ONE! (98306) manual diff Not Indicated (Normal) mpv 4.88 [...] 6.15 10*3/uL (Normal) Range: 4.50-10.50 11:58 CMP (80013) Comments: Items in this order include: Comprehensive Metabolic Panel, CBC, Hemoglobin Y6DClry Hgb A1C was ran 225 Days ago. [...] valve? No ([facility]) (17963) 4. Saturday Dosage Repeat mg (Normal) 3. Saturday Dosage 7.5 mg (Normal) 2. Saturday Dosage 5.0 mg (Normal) 1. Saturday Dosage 5.0 mg (Normal) INR 2.60 (Normal) PT 26.8 s (Abnormal) Range: 10.4-12.4 -March-2013 PT (PROTHROMBIN TIME) Comments: Items in this order include: Draw Charge[i], Protime & INRDoes patient have a artifical heart valve? No 15:12 ([facility]) (53195) 5. Dosage Repeat mg (Normal) 4. Saturday Dosage 5.0 mg (Normal) 3. Saturday Dosage 5.0 mg (Normal) 2. Saturday Dosage 7.5 mg (Normal) INR 2.31 (Normal) PT 24.0 s (Abnormal) Range: 10.4-12.4 15:12 Routine Venipuncture Comments: Items in this order include: Draw Charge[i], Protime & INR (13047) Draw Drawn (Normal) PSA (PROSTATE SPECIFIC Comments: A copy of this report will be faxed to: Bettie Boswell in this order include: PSA, Draw Charge[i]PSA allowed more than once a year due to being a Diagonistic PSA not a screening PSA 10:00 ANTIGEN) (00538) PSA 5.60 ng/mL (Abnormal) Range: 0.00-4.00 10:00 [...] valve? No ([facility]) (92765) 3. Saturday Dosage Repeat mg (Normal) 2. Saturday Dosage 7.5 mg (Normal) 1. Saturday Dosage 5.0 mg (Normal) INR 2.64 (Normal) PT 27.2 s (Abnormal) Range: 10.4-12.4 10:09 Routine Venipuncture Comments: Items in this order include: Draw Charge[i], Protime & INR (46215) Draw Drawn (Normal) 16-Dec-2012 PT (PROTHROMBIN TIME) Comments: Items in this order include: Draw Charge[i], Protime & INRDoes patient have a artifical heart valve? No 10:46 ([facility]) (13764) 4. Saturday Dosage Repeat mg (Normal) 3. Saturday Dosage 5.0 mg (Normal) 2. Saturday Dosage 7.5 mg (Normal) INR 2.13 (Normal) PT 22.2 s (Abnormal) Range: 10.4-12.4 10:46 Routine Venipuncture Comments: Items in this order include: Draw Charge[i], Protime & INR (74584) Draw Drawn (Normal) 26-Nov-2012 Routine Venipuncture Comments: Items in this order include: Protime & INR, Draw Charge[i] 15:05 (21169) Draw Drawn (Normal) 15:05 PT (PROTHROMBIN TIME) Comments: Items in this order include: Protime & INR, Draw Charge[i]Does patient have a artifical heart valve? No ([facility]) (32002) 4. Saturday Dosage 5.0 Repeat mg (Normal) [...] No 10:38 ([facility]) (21715) 7. Saturday Dosage 7.5 mg (Normal) 6. [...] order include: Draw Charge[i], Protime & INR (73168) Draw Drawn (Normal) 11:33 BMP Comments: Items [...] Dose? 10/29/2012 8:00 PMDosage? 0.25 mg Daily (58836) DIG 1.64 ng/mL (Normal) Range: 0.90-2.00 14-Oct-2012 PSA (PROSTATE SPECIFIC Comments: A copy of this report will be faxed to: Bettie Boswell in this order include: Draw Charge[i], Protime & INR, PSAPSA allowed more than once a year due to being a Diagonistic PSA not a screening PSA 10:25 ANTIGEN) (38548) PSA 8.11 ng/mL (Abnormal) Range: 0.00-4.00 10:25 PT (PROTHROMBIN TIME) Comments: PSA allowed more than once a year due to being a Diagonistic PSA not a screening PSACoumadin dosage=5,5,5,5,7.5 repeatDoes patient have a artifical heart valve? No ([facility]) (41064) 7. Saturday Dosage 7.5 mg (Normal) 6. [...] a Diagonistic PSA not a screening PSA (25019) Draw Drawn (Normal) 12-Sep-2012 PT (PROTHROMBIN TIME) Comments: Items in this order include: Draw Charge[i], Protime & INRDoes patient have a artifical heart valve? No 09:16 ([facility]) (52621) 6. Saturday Dosage Repeat mg (Normal) 5. Dosage 7.5 mg (Normal) 4. Saturday Dosage 5.0 mg (Normal) 3. Saturday Dosage 5.0 mg (Normal) 2. Saturday Dosage 5.0 mg (Normal) 1. Saturday Dosage 5.0 mg (Normal) INR 2.48 (Normal) PT 25.7 s (Abnormal) Range: 10.4-12.4 09:16 Routine Venipuncture Comments: Items in this order include: Draw Charge[i], Protime & INR (12151) Draw Drawn (Normal) 18-Aug-2012 PT (PROTHROMBIN TIME) Comments: Items in this order include: Protime & INRDoes patient have a artifical heart valve? No 11:44 ([facility]) (64287) 7. Saturday Dosage 5.0 mg (Normal) 6. [...] Days ago. Check by KB (HGB A1C) (00204) A1C 6.2 % (Normal) Range: 4.6-6.2 Comments: High risk of diabetes. 31-Jul-2012 PT (PROTHROMBIN TIME) Comments: Items in this order include: Draw Charge[i], Protime & INRINR value > 3.0 given to Estella by Beny Buckley patient have a artifical heart valve? No 13:32 ([facility]) (42003) 7. day Dosage 5.0 mg (Normal) 6. [...] order include: Draw Charge[i], Protime & INR (94488) Draw Drawn (Normal) 23-Jun-2012 PSA (PROSTATE SPECIFIC Comments: A copy of this report will be faxed to: Bettie Boswell in this order include: Draw Charge[i], Protime & INR, PSAPSA allowed more than once a year due to being a Diagonistic PSA not a screening PSA 15:50 ANTIGEN) (29946) PSA 8.05 ng/mL (Abnormal) Range: 0.00-4.00 15:50 PT (PROTHROMBIN TIME) Comments: A copy of this report will be faxed to: Bettie Boswell in this order include: Draw Charge[i], Protime & INR , PSAPSA allowed more than once a year due to being a Diagonistic PSA not a screening ([facility]) (46479) PSADoes patient have a artifical heart valve? [...] a Diagonistic PSA not a screening PSA (76427) Draw Drawn (Normal) 13-May-2012 Draw Charge[i] Comments: [...] results to dr. hema boswell 14:28 ANTIGEN) (99274) PSA 16.45 ng/mL (Abnormal) Range: 0.00-4.00 14:28 PT (PROTHROMBIN TIME) Comments: Coumadin Dosage=5,5,5,7.5 Repeat. Took 7.5 on 04-27-12. ([facility]) (44536) 5. Dosage 7.5 Repeat mg (Normal) 4. Saturday Dosage 5.0 mg (Normal) 3. Saturday Dosage 5.0 mg (Normal) 2. Saturday Dosage 5.0 mg (Normal) 1. Saturday Dosage 7.5 mg (Normal) INR 2.17 (Normal) PT 22.7 s (Abnormal) Range: 10.4-12.4 14:28 Routine Venipuncture (73555) Draw Drawn (Normal) 13-May-2012 PSA (PROSTATE SPECIFIC Comments: A copy of this report will be faxed to: Bettie Boswell in this order include: PSA, Draw Charge[i]PSA allowed more than once a year due to being a Diagonistic PSA not a screening PSA 09:20 ANTIGEN) (66421) PSA 11.30 ng/mL (Abnormal) Range: 0.00-4.00 TSH (THYROID Comments: Items in this order include: TSH 16:40 STIMULATING HORMONE) (18222) TSH 1.36 uIU/ml (Normal) Range: 0.34-5.60 14:50 PT (PROTHROMBIN TIME) Comments: Items in this order include: Draw Charge[i], Basic Metabolic Panel, Hemoglobin A1C, Protime & INRLast Hbg A1C was ran 218 Days ago. Check by DL ([facility]) (95637) 5. Dosage Repeat mg (Normal) 4. Saturday [...] ran 218 Days ago. Check (HGB A1C) (69927) by DLplease draw enough blood so if [...] ran 218 Days ago. Check by DL (60191) Draw Drawn (Normal) DIGOXIN, DRUG ASSAY Comments: Items in this order include: CBC, Comprehensive Metabolic Panel, CKI, Digoxin, Draw Charge[i] 09:08 (23842) DIG 0.38 ng/mL (Abnormal) Range: 0.90-2.00 09:08 CK Comments: Items in this order include: CBC, Comprehensive Metabolic Panel, CKI, Digoxin, Draw Charge[i] CKI 143 U/L (Normal) Range: 39-308 09:08 CMP (05035) Comments: Items in this order include: CBC, [...] Metabolic Panel, CKI, Digoxin, Draw Charge[i] ONE! (37461) manual diff Not Indicated (Normal) mpv 6.84 [...] order include: Protime & INR, Draw Charge[i] (40488) Draw Drawn (Normal) 16:45 PT (PROTHROMBIN TIME) Comments: Items in this order include: Protime & INR, Draw Charge[i]Coumadin doasage=5,5,7.5 Repeat ([facility]) (02263) 7. Saturday Dosage 5.0 mg (Normal) 6. [...] order include: Draw Charge[i], PSA 11:11 ANTIGEN) (93810) PSA 6.92 ng/mL (Abnormal) Range: 0.00-4.00 11:11 Routine Venipuncture Comments: A copy of this report will be faxed to: Bettie Boswell in this order include: Draw Charge[i], PSA (82541) Draw Drawn (Normal) 17-Oct-2011 Routine Venipuncture 10:18 (51121) Draw Drawn (Normal) 10:18 TESTOSTERONE, FREE, Comments: Items in this order include: Protime & INR, Draw Charge[i], TESTOSTERONE, FREE, BIOAVAILABLE, AND TOTAL, LC/MS/ MSTesting performed at: [place], [address] [address], [place], [address], Dimensional Engineer: Michael Chávez [facility] TOTAL, LC/MS/MS ALBUMIN,SERUM [...] (PROTHROMBIN TIME) ([facility]) (98968) 7. Saturday Dosage 5.0 mg (Normal) 6. [...] Panel, Hemoglobin A1C, Draw Charge[i] (HGB A1C) (48694) A1C 6.1 % (Normal) Range: 4.6-6.2 13:29 [...] (Normal) Range: 135-145 13:29 DIGOXIN, DRUG ASSAY (88848) DIG 0.85 ng/mL (Abnormal) Range: 0.90-2.00 07-Aug-2011 TESTOSTERONE, FREE, Comments: Items in this order include: TESTOSTERONE, FREE, BIOAVAILABLE, AND TOTAL, LC/MS/MSTesting performed at: [place], [address] [address] , [place] , [address], [place] 12:53 WEAKLY BOUND AND TOTAL ratory Director: Michael Chávez MD.[facility] (26528) ALBUMIN,SERUM 4.4 g/dL (Normal) Range: 3.6-5.1 SEX [...] coumadin dose ([facility]) (94912) 7. Saturday Dosage 7.5 mg (Normal) 6. [...] Draw Charge[i] ([facility]) (63404) 7. Saturday Dosage 5.0 mg (Normal) 5. [...] Boswell in this order include: PSA ANTIGEN) (15975) PSA 5.95 ng/mL (Abnormal) Range: 0.00-4.00 CBC-MALE- ORDER THIS Comments: Items in this order include : Hemoglobin A1C, Comprehensive Metabolic Panel, CBC 11:56 ONE! (97526) manual diff Not Indicated (Normal) mpv 7.65 [...] 6.24 10*3/uL (Normal) Range: 4.50-10.50 11:56 CMP (05609) Comments: Items in this order include: Hemoglobin [...] this order include: Digoxin, Draw Charge[i] 15:17 (83015) DIG 1.18 ng/mL (Normal) Range: 0.90-2.00 HEMOGLOBIN GLYCLATED Comments: Items in this order include: Hemoglobin A1C, Comprehensive Metabolic Panel, CBC 11:56 (HGB A1C) (33008) A1C 6.6 % (Abnormal) Range: 4.6-6.2 Comments: Consistent with diabetes. 13:48 PT (PROTHROMBIN TIME) Comments: change to coumadin 5mg x 2 day then 7.5mg x1 repeat the cycle; Items in this order include: Protime & INR, Draw Charge[i]cyclechange to coumadin 5mg x 2 day then 7.5mg x1 repeat the ([facility]) (80052) 6. Saturday Dosage 7.5 mg (Normal) 7. [...] & INR, PSA, Draw Charge[i] 09:43 ANTIGEN) (74414) PSA 5.84 ng/mL (Abnormal) Range: 0.00-4.00 09:43 PT (PROTHROMBIN TIME) Comments: no change in coumadin; no change in coumadin ([facility]) (65792) 7. Saturday Dosage 7.5 mg (Normal) 6. Saturday Dosage 5.0 mg (Normal) 5. Dosage 7.5 mg (Normal) 4. Saturday Dosage 5.0 mg (Normal) 3. Saturday Dosage 5.0 mg (Normal) 1. Saturday Dosage 5.0 mg (Normal) 2. Saturday Dosage 7.5 mg (Normal) INR 3.45 (Normal) PT 32.9 s (Abnormal) Range: 10.4-12.4 23-Nov-2010 PT (PROTHROMBIN TIME) 10:03 ([facility]) (66784) 6. Saturday Dosage 7.5 mg (Normal) 7. Saturday Dosage 5 mg (Normal) 1. Saturday Dosage 5 mg (Normal) 2. Saturday Dosage 7.5 mg (Normal) 3. Saturday Dosage 5 mg (Normal) 4. Saturday Dosage 7.5 mg (Normal) 5. Dosage 5 mg (Normal) INR 2.16 (Normal) PT 21.0 s (Abnormal) Range: 10.4-12.4 19-Oct-2010 PT (PROTHROMBIN TIME) 15:16 ([facility]) (27314) 6. Saturday Dosage 5 mg (Normal) 7. Saturday Dosage 7.5 mg (Normal) 3. Saturday Dosage 7.5 mg (Normal) 4. Saturday Dosage 5 mg (Normal) 5. Dosage 7.5 mg (Normal) 1. Saturday Dosage 7.5 mg (Normal) 2. Saturday Dosage 5 mg (Normal) INR 2.13 (Normal) PT 20.7 s (Abnormal) Range: 10.4-12.4 12-Sep-2010 PT (PROTHROMBIN TIME) 11:03 ([facility]) (17556) INR 2.57 (Normal) PT (PROTHROMBIN TIME) 24.8 s (Abnormal) Range: 11.5-13.5 22-Aug-2010 PT (PROTHROMBIN TIME) 13:41 ([facility]) (09552) 09-Aug-2010 PSA, MEDICARE (G0103) Comments: please fax to dr hema boswell 09:54 PSA (Medicare) 4.83 ng/mL (Abnormal) Range: 0 - 4 09:34 PT (PROTHROMBIN TIME) ([facility]) (22948) INR 2.68 (Normal) PT (PROTHROMBIN TIME) 25.8 s (Abnormal) Range: 11.5-13.5 27-Jun-2010 PT (PROTHROMBIN TIME) 08:38 ([facility]) (60436) 26-Jun-2010 PT (PROTHROMBIN TIME) 16:21 ([facility]) (05427) INR 1.89 (Normal) PT (PROTHROMBIN TIME) 18.4 s (Abnormal) Range: 11.5-13.5 Treatment Plan PT (PROTHROMBIN TIME) ([facility]) (51937); Ordered: 12/27/2014Routine Venipuncture ( 42269); Ordered: 12/27/2014 Advance Directives Encounters Lab entry [...] (PCV13)FOR MEDICARE USE ONLY Pneumovax injection (V03.82) 28433, Encounter for long-term ( current) use of [...] M.D. after being in the hospital at [facility] on 10/16/13 & discharged on [...] boswell the middle of apr.). [facility] Historical Summary [...]
--- OUTSIDE RECORDS SUMMARY | 2017-10-22 18:03 | External Medical Summary | Referral Summary ---
:1940 Author [facility] [address] [place] [address] [place] [phone] Care Team Providers Name Role Phone Blayne Blake Primary Care Physician Encounter VC Date(s): 09/18/16 - 09/18/16 [facility] [place] [phone] Discharge Diagnosis: Type 2 diabetes mellitus Discharge Diagnosis: HTN (hypertension) Discharge Diagnosis: Chronic a-fib Discharge Disposition: 01-Home or Self Care Attending Physician: Blayne Blake DO Admitting Physician: Blayne Blake DO Vital Signs Most recent to oldest [Reference Range]: 1 Temperature Tympanic [36.6-38.1 degC] 36.3 degC *LOW* (09/18/16 1:57 PM) Peripheral Pulse Rate [60-100 bpm] 53 bpm *LOW* (09/18/16 1:57 PM) Respiratory Rate [14-20 br/min] 18 br/min (09/18/16 1:57 PM) Blood Pressure [90-140/60-90 mmHg] 108/58 mmHg (09/18/16 1:57 PM) SpO2 97 % (09/18/16 1:57 PM) Problem List No data available for this [...] day), 0 Refill(s) Start Date: 01/04/16 Status: OrderedXarelto 20 mg oral tablet 20 mg 1 tabs, Oral, qPM, # 90 tabs, 3 Refill(s), Pharmacy: [facility], 1 tabs Oral qPM Start Date: 09/18/16 Status: Ordered Results Hematology Most recent to oldest [Reference Range]: 1 WBC [4.8-10.8 10*3/uL] 8.0 10*3/uL (09/18/16 3:15 PM) RBC [4.60-6.20] 4.42 *LOW* (09/18/16 3:15 PM) Hgb [14.0-18.0 gm/dL] 13.5 gm/dL *LOW* (09/18/16 3:15 PM) Hct [42.0-52.0 %] 41.5 % *LOW* (09/18/16 3:15 PM) MCV [82.0-99.0 fL] 93.9 fL (09/18/16 3:15 PM) MCH [27.0-32.0 pg] 30.5 pg (09/18/16 3:15 PM) MCHC [32.0-36.0 gm/dL] 32.5 gm/dL (09/18/16 3:15 PM) RDW [11.5-14.5 %] 13.7 % (09/18/16 3:15 PM) Platelet [150-400 10*3/uL] 230 10*3/uL (09/18/16 3:15 PM) MPV [8.8-14.8 fL] 10.4 fL (09/18/16 3:15 PM) Immature Granulocytes [0.0-1.0 %] 0.1 % (09/18/16 3:15 PM) Neutrophils [51-75 %] 68 % (09/18/16 3:15 PM) Lymphocytes [20-46 %] 22 % (09/18/16 3:15 PM) Monocytes [4-11 %] 8 % (09/18/16 3:15 PM) Eosinophils [0-4 %] 2 % (09/18/16 3:15 PM) Basophils [0-2 %] 0 % (09/18/16 3:15 PM) Neutro Absolute [1.90-7.00] 5.44 (09/18/16 3:15 PM) Lymph Absolute [0.80-3.30] 1.78 (09/18/16 3:15 PM) [place] Absolute [0.30-1.00] 0.61 (09/18/16 3:15 PM) Eos Absolute [0.00-0.50] 0.17 (09/18/16 3:15 PM) Baso Absolute [0.00-0.20] 0.02 (09/18/16 3:15 PM) Chemistry Most recent to oldest [Reference Range]: 1 Sodium Lvl [135-144 mEq/L] 142 mEq/L (09/18/16 3:15 PM) Potassium Lvl [3.5-5.2 mEq/L] 4.4 mEq/L (09/18/16 3:15 PM) Chloride [99-111 mEq/L] 106 mEq/L (09/18/16 3:15 PM) CO2 [23-31 mEq/L] 29 mEq/L (09/18/16 3:15 PM) AGAP [3-20] 7 (09/18/16 3:15 PM) BUN [8-26 mg/dL] 31 mg/dL *HI* (09/18/16 3:15 PM) Glucose Lvl [70-99 mg/dL] 96 mg/dL (09/18/16 3:15 PM) Creatinine Lvl [0.72-1.25 mg/dL] 1.06 mg/dL (09/18/16 3:15 PM) eGFR [>60 mL/min] >60 mL/min 1 (09/18/16 3:15 PM) Calcium Lvl [8.9-10.5 mg/dL] 9.0 mg/dL (09/18/16 3:15 PM) Albumin Lvl [3.4-4.8 gm/dL] 4.1 gm/dL (09/18/16 3:15 PM) Total Protein [6.0-7.6 gm/dL] 6.2 gm/dL (09/18/16 3:15 PM) Globulin [1.8-4.0 gm/dL] 2.1 gm/dL (09/18/16 3:15 PM) ALT [0-55 U/L] 14 U/L (09/18/16 3:15 PM) AST [5-34 U/L] 16 U/L (09/18/16 3:15 PM) Alk Phos [40-150 U/L] 68 U/L (09/18/16 3:15 PM) Bili Total [0.2-1.2 mg/dL] 0.4 mg/dL (09/18/16 3:15 PM) Uric Acid [3.5-7.2 mg/dL] 8.0 mg/dL *HI* (09/18/16 3:15 PM) TSH with Reflex Free T4 [0.35-4.94] 1.44 (09/18/16 3:15 PM) 1Result Comment: Multiply eGFR results by 1.21 for race. Immunizations Given and Recorded Vaccine Date Status Refusal Reason influenza virus vaccine, inactivated 09/18/16 Given zoster vaccine live 03/08/16 Given Procedures Procedure Date Related Diagnosis Body Site Colonoscopy1 10/06/14 1Normal study. Repeat in 10 yrs Social History Social History Type Response Smoking Status Never smoker Assessment and Plan Extracted from: Title: [facility] visit Author: Blayne Blake DO Date: 09/18/16 Assessment/Plan Chronic a-fib 1. Discontinue Eliquis. 2. Start Xarelto at 20mg daily. 3. Follow up with glass artist at scheduled appointment. 4. Follow up for any bleeding concerns HTN (hypertension) 1. Blood pressure is controlled at this time. 2. Continue with low salt diet. 3. Continue with current medications. Immunization due 1. Flu shot given today. Type 2 diabetes mellitus 1. A1C ordered and is pending. 2. Continue with same medication regimen at this time, based on A1C we will make farther recommendations.
--- OUTSIDE RECORDS SUMMARY | 2017-10-22 18:04 | External Medical Summary | Continuity of Care Document ---
:1940 Author Organization [facility] Address [address] [place] [address] Phone Care Team Providers Name Role Phone [...] Prevnar (PCV13)FOR MEDICARE USE ONLY Pneumovax injection 00769 (V03.82) Status: Active Renal lithiasis (592.0, N20.0) [...] Comments:started on 10/17/13 after being dismissed from [facility] for kidney stone by gale CITALOPRAM [...] dx kidney stone from being discharged from [facility] testrone cream 10% apply 0.5ml daily [...] Significant Medical History. Procedures Procedure Dates Details X-RAY EXAM OF KNEE, 1 OR 2 VIEWS Ordered: Comments: right (47373) X-RAY EXAM OF BOTH KNEES, Ordered: STANDING (47607) How to access health information Completed: online Follow up - Keep appt as scheduled Ordered:28-Oct-2014 CAROTID BILATERAL US (54632) Completed:14-Sep-2014 Comments: Verbal order from Dr. James Romero Follow up in 6 months Ordered:12-Aug-2014 PREVNAR 13 VALENT PNEUMOCOCCAL Completed:12-Aug-2014 VACCINE (77273) ADMINISTRATION OF PNEUMOCOCCAL Ordered:12-Aug-2014 CONJUGATE VACCINE (G0009) How to access health information Completed:12-Aug-2014 online Follow up in 6 months Ordered: Follow up in 2 months Ordered:26-Oct-2013 ADMIN INFLUENZA VIRUS VAC: FLU VACC Completed:26-Oct-2013 PRSV FREE INC ANTIG (53250) ADMINISTRATION OF INFLUENZA VIRUS Ordered:26-Oct-2013 VACCINE (G0008) Follow up in 6 months Ordered:30-Apr-2013 Follow up - Keep appt as scheduled Ordered:02-Jan-2013 Follow up in 6 months Ordered:30-Oct-2012 Follow up in 3 months Ordered:01-Aug-2012 Follow up in 3 months Ordered:01-May-2012 Follow up in 6 weeks Ordered: ADMINISTRATION OF INFLUENZA VIRUS Ordered:14-May-2011 VACCINE (G0008) FLU VACC PRSV FREE INC ANTIG Completed:14-May-2011 (90912) Follow up in 2 months Ordered:14-May-2011 Follow [...] Site: Deltoid (Left); high dose Lot #: [id number] Influenza, preserv. free, enhanced immunogncty, IM Administered on:2013 Comments: Site: Deltoid (Left) Lot #: [id number] Pneumococcal conjugate vaccine, 13 valent, IM Administered on:12-Aug-2014 Comments: Site: Deltoid (Left) Lot #: [id number] Social History Name Dates Details Tobacco use: [...] Comments: The left neck Final 10:36 SINGLE (98009) lesion was removed and also the left [...] not sent to pathology. 10:35 PUNCH BIOPSY (50129) Comments: After Final FIRST BIOPSY cleansing the [...] order include: A COPY TO [i], PSA 09:25 ANTIGEN) (01183) PSA 6.55 ng/mL (Abnormal) Range: 0.00-4.00 09:25 [...] No ([facility]) (18403) 8. Saturday Dosage 7.5 mg (Normal) 9. [...] order include: Draw Charge[i], Protime & INR (93503) Draw Drawn (Normal) -Dec-2014 PT (PROTHROMBIN TIME) Comments: Items in this order include: Draw Charge[i], Protime & INRDoes patient have a artifical heart valve? No 09:28 ([facility]) (43404) 9. Saturday Dosage 5.0 mg (Normal) 7. [...] order include: Draw Charge[i], Protime & INR (36275) Draw Drawn (Normal) -Oct-2014 PT (PROTHROMBIN TIME) Comments: Items in this order include: Draw Charge[i], Protime & INRDoes patient have a artifical heart valve? No 10:48 ([facility]) (43561) 9. Saturday Dosage 7.5 mg (Normal) 8. [...] order include: Draw Charge[i], Protime & INR (88610) Draw Drawn (Normal) 29-Nov-2014 PT (PROTHROMBIN TIME) Comments: Items in this order include: Draw Charge[i], Protime & INRDoes patient have a artifical heart valve? No 10:28 ([facility]) (70171) 9. Saturday Dosage 5.0 mg (Normal) 8. [...] order include: Draw Charge[i], Protime & INR (56969) Draw Drawn (Normal) 21-Sep-2014 PT (PROTHROMBIN TIME) Comments: Items in this order include: Draw Charge[i], Protime & INRDoes patient have a artifical heart valve? No 10:08 ([facility]) (09299) 9. day Dosage 5.0 mg (Normal) 7. Dosage 5.0 mg (Normal) 8. Saturday Dosage 7.5 mg (Normal) 6. Saturday Dosage 7.5 mg (Normal) 4. Saturday Dosage 7.5 mg (Normal) 5. Saturday Dosage 5.0 mg (Normal) 3. Saturday Dosage 5.0 mg (Normal) INR 2.92 (Normal) PT 31.4 s (Abnormal) Range: 9.3-11.7 10:08 Routine Venipuncture Comments: Items in this order include: Draw Charge[i], Protime & INR (93060) Draw Drawn (Normal) 24-Aug-2014 Routine Venipuncture Comments: Items in this order include: Protime & INR, Draw Charge[i] 09:59 (13685) Draw Drawn (Normal) 09:59 PT (PROTHROMBIN TIME) Comments: Items in this order include: Protime & INR, Draw Charge[i]INR value > 3.0 given to Estella by Beny Buckley patient have a artifical heart valve? No ([facility]) (50434) 9. Saturday Dosage 7.5 mg (Normal) 7. [...] Panel, Hemoglobin A1C, Urine Microalbumin, CBC ONE! (07393) manual diff Not Indicated (Normal) mpv 9.60 [...] Metabolic Panel, Hemoglobin A1C, Urine Microalbumin, CBC (58485) U A:C RATIO <30 mg/g Normal Range: <30 mg/g Normal (Normal) U CREAT 200 mg/dL (Normal) Range: 10-300 U ALB 80 mg/L (Abnormal) Range: 10 mg/L 09:59 HEMOGLOBIN GLYCLATED Comments: Items in this order include: Digoxin , PSA, Basic Metabolic Panel, Hemoglobin A1C, Urine Microalbumin, CBC (HGB A1C) (84158) A1C 5.9 % (Normal) Range: 4.6-6.2 Comments: Increased risk of diabetes. 09:59 [facility] (62426) Comments: Items in this order include: Digoxin, [...] Panel, Hemoglobin A1C, Urine Microalbumin, CBC ANTIGEN) (79160) PSA 7.11 ng/mL (Abnormal) Range: 0.00-4.00 09:59 DIGOXIN (42558) Comments: Items in this order include: Digoxin, PSA , Basic Metabolic Panel, Hemoglobin A1C, Urine Microalbumin, CBCTime of Last Dose? 08/23/2014 8:00 AMDosage? 0.25 DIG 0.36 ng/mL (Abnormal) Range: 0.90-2.00 05-Aug-2014 PT (PROTHROMBIN TIME) Comments: Items in this order include: Draw Charge[i], Protime & INRDoes patient have a artifical heart valve? No 10:48 ([facility]) (29587) 8. Saturday Dosage 7.5 mg (Normal) 9. [...] Protime & INR (43279) Draw Drawn (Normal) 03-Jun-2014 PT (PROTHROMBIN TIME) Comments: Items in this order include: Draw Charge[i], Protime & INRDoes patient have a artifical heart valve? No 13:56 ([facility]) (43464) 9. Saturday Dosage 7.5 mg (Normal) 8. [...] order include: Draw Charge[i], Protime & INR (14738) Draw Drawn (Normal) PT (PROTHROMBIN TIME) Comments: Items in this order include: Protime & INRDoes patient have a artifical heart valve? No 14:25 ([facility]) (18963) 9. Saturday Dosage 5.0 mg (Normal) 8. [...] this order include: Draw Charge[i], PSA ANTIGEN) (63427) PSA 6.15 ng/mL (Abnormal) Range: 0.00-4.00 14:25 Routine Venipuncture Comments: A copy of this report will be faxed to: Bettie Boswell in this order include: Draw Charge[i], PSA (03776) Draw Drawn (Normal) HEMOGLOBIN GLYCLATED Comments: Items in this order include: Hemoglobin A1C, Draw Charge[i], Comprehensive Metabolic Panel, Uric Acid 15:06 (HGB A1C) (13963) A1C 5.7 % (Normal) Range: 4.6-6.2 15:06 CMP (52085) Comments: Items in this order include: Hemoglobin [...] (Normal) Range: 135-145 15:06 URIC ACID BLOOD (92607) Comments: Items in this order include: Hemoglobin A1C, Draw Charge[i], Comprehensive Metabolic Panel, Uric Acid Uric Acid 8.0 mg/dL (Abnormal) Range: 3.6-7.7 15:06 Routine Venipuncture Comments: Items in this order include: Hemoglobin A1C, Draw Charge[i], Comprehensive Metabolic Panel, Uric Acid (91443) Draw Drawn (Normal) -January-2014 PT (PROTHROMBIN TIME) Comments: Items in this order include: Draw Charge[i], Protime & INRDoes patient have a artifical heart valve? No 14:27 ([facility]) (79524) 8. Saturday Dosage 5.0 mg (Normal) 9. [...] order include: Draw Charge[i], Protime & INR (33332) Draw Drawn (Normal) 26-Oct-2013 Draw Charge[i] Comments: Items in this order include: Basic Metabolic Panel, Draw Charge[i] 17:08 Draw Drawn (Normal) 17:05 [facility] (95039) Comments: Items in this order include: Basic [...] No ([facility]) (58249) 9. Saturday Dosage 5.0 mg (Normal) 7. [...] order include: Draw Charge[i], Protime & INR (53252) Draw Drawn (Normal) 15-Sep-2013 PSA (PROSTATE SPECIFIC Comments: A copy of this report will be faxed to: Bettie Boswell in this order include: A COPY TO [kyung] PSAPSA allowed more than once a year due to being a Diagonistic PSA not a screening PSA 11:05 ANTIGEN) (50570) PSA 5.40 ng/mL (Abnormal) Range: 0.00-4.00 11:05 [...] this order include: Comprehensive Metabolic Panel, Hemoglobin [id number] Hgb A1C was ran 99 Days ago. Check by MARGARITA 10:38 (HGB A1C) (03225) A1C 5.9 % (Normal) Range: 4.6-6.2 Comments: Increased risk of diabetes. 10:38 CMP (05793) Comments: Items in this order include: Comprehensive Metabolic Panel, Hemoglobin [id number] Hgb A1C was ran 99 Days ago. [...] No ([facility]) (86183) 9. Saturday Dosage 5.0 (cycle of 5,5,7.5 [...] order include: Draw Charge[i], Protime & INR (96703) Draw Drawn (Normal) 10:38 DIGOXIN (37919) Comments: Items in this order include: DigoxinTime of Last Dose? 08/06/2013 8:30 AMDosage? 0.25 mg daily DIG 0.48 ng/mL (Abnormal) Range: 0.90-2.00 30-Apr-2013 HEMOGLOBIN GLYCLATED Comments: Items in this order include: Comprehensive Metabolic Panel, CBC, Hemoglobin O2DKstl Hgb A1C was ran 225 Days ago. Check by ms 11:58 (HGB A1C) (90891) A1C 6.1 % (Normal) Range: 4.6-6.2 11:58 CBC MALE- ORDER THIS Comments: Items in this order include: Comprehensive Metabolic Panel, CBC, Hemoglobin X2CYune Hgb A1C was ran 225 Days ago. Check by ms ONE! (72985) manual diff Not Indicated (Normal) mpv 4.88 [...] 6.15 10*3/uL (Normal) Range: 4.50-10.50 11:58 CMP (50502) Comments: Items in this order include: Comprehensive Metabolic Panel, CBC, Hemoglobin [id number] Hgb A1C was ran 225 Days ago. [...] No ([facility]) (01240) 4. Saturday Dosage Repeat mg (Normal) 3. Saturday Dosage 7.5 mg (Normal) 2. Saturday Dosage 5.0 mg (Normal) 1. Saturday Dosage 5.0 mg (Normal) INR 2.60 (Normal) PT 26.8 s (Abnormal) Range: 10.4-12.4 PT (PROTHROMBIN TIME) Comments: Items in this order include: Draw Charge[i], Protime & INRDoes patient have a artifical heart valve? No 15:12 ([facility]) (11014) 5. Dosage Repeat mg (Normal) 4. Saturday Dosage 5.0 mg (Normal) 3. Saturday Dosage 5.0 mg (Normal) 2. Saturday Dosage 7.5 mg (Normal) INR 2.31 (Normal) PT 24.0 s (Abnormal) Range: 10.4-12.4 15:12 Routine Venipuncture Comments: Items in this order include: Draw Charge[i], Protime & INR (99808) Draw Drawn (Normal) [id number] PSA (PROSTATE SPECIFIC Comments: A copy of this report will be faxed to: Bettie Boswell in this order include: PSA, Draw Charge[i]PSA allowed more than once a year due to being a Diagonistic PSA not a screening PSA 10:00 ANTIGEN) (62907) PSA 5.60 ng/mL (Abnormal) Range: 0.00-4.00 10:00 [...] No ([facility]) (10540) 3. Saturday Dosage Repeat mg (Normal) 2. Saturday Dosage 7.5 mg (Normal) 1. Saturday Dosage 5.0 mg (Normal) INR 2.64 (Normal) PT 27.2 s (Abnormal) Range: 10.4-12.4 10:09 Routine Venipuncture Comments: Items in this order include: Draw Charge[i], Protime & INR (07116) Draw Drawn (Normal) 16-Dec-2012 PT (PROTHROMBIN TIME) Comments: Items in this order include: Draw Charge[i], Protime & INRDoes patient have a artifical heart valve? No 10:46 ([facility]) (99799) 4. Saturday Dosage Repeat mg (Normal) 3. Saturday Dosage 5.0 mg (Normal) 2. Saturday Dosage 7.5 mg (Normal) INR 2.13 (Normal) PT 22.2 s (Abnormal) Range: 10.4-12.4 10:46 Routine Venipuncture Comments: Items in this order include: Draw Charge[i], Protime & INR (46709) Draw Drawn (Normal) 26-Nov-2012 Routine Venipuncture Comments: Items in this order include: Protime & INR, Draw Charge[i] 15:05 (60993) Draw Drawn (Normal) 15:05 PT (PROTHROMBIN TIME) Comments: Items in this order include: Protime & INR, Draw Charge[i]Does patient have a artifical heart valve? No ([facility]) (24520) 4. Saturday Dosage 5.0 Repeat mg (Normal) 3. Saturday Dosage 5.0 mg (Normal) 2. Saturday Dosage 7.5 mg (Normal) INR 1.34 (Normal) PT 14.4 s (Abnormal) Range: 10.4-12.4 30-Oct-2012 PT (PROTHROMBIN TIME) Comments: Items in this order include: Draw Charge[i], Protime & INRINR value > 3.0 given to BW by Froy Chávez patient have a artifical heart valve? No 10:38 ([facility]) (69570) 7. Saturday Dosage 7.5 mg (Normal) 6. [...] order include: Draw Charge[i], Protime & INR (21354) Draw Drawn (Normal) 11:33 BMP Comments: Items [...] Dose? 10/29/2012 8:00 PMDosage? 0.25 mg Daily (58921) DIG 1.64 ng/mL (Normal) Range: 0.90-2.00 14-Oct-2012 PSA (PROSTATE SPECIFIC Comments: A copy of this report will be faxed to: Bettie Boswell in this order include: Draw Charge[i], Protime & INR, PSAPSA allowed more than once a year due to being a Diagonistic PSA not a screening PSA 10:25 ANTIGEN) (97109) PSA 8.11 ng/mL (Abnormal) Range: 0.00-4.00 10:25 PT (PROTHROMBIN TIME) Comments: PSA allowed more than once a year due to being a Diagonistic PSA not a screening PSACoumadin dosage=5,5,5,5,7.5 repeatDoes patient have a artifical heart valve? No ([facility]) (11149) 7. Saturday Dosage 7.5 mg (Normal) 6. [...] a Diagonistic PSA not a screening PSA (32588) Draw Drawn (Normal) 12-Sep-2012 PT (PROTHROMBIN TIME) Comments: Items in this order include: Draw Charge[i], Protime & INRDoes patient have a artifical heart valve? No 09:16 ([facility] [employer]) (02302) 6. Saturday Dosage Repeat mg (Normal) 5. Dosage 7.5 mg (Normal) 4. Saturday Dosage 5.0 mg (Normal) 3. Saturday Dosage 5.0 mg (Normal) 2. Saturday Dosage 5.0 mg (Normal) 1. Saturday Dosage 5.0 mg (Normal) INR 2.48 (Normal) PT 25.7 s (Abnormal) Range: 10.4-12.4 09:16 Routine Venipuncture Comments: Items in this order include: Draw Charge[i], Protime & INR (27784) Draw Drawn (Normal) 18-Aug-2012 PT (PROTHROMBIN TIME) Comments: Items in this order include: Protime & INRDoes patient have a artifical heart valve? No 11:44 ([facility] [employer]) (57992) 7. Saturday Dosage 5.0 mg (Normal) 6. [...] Days ago. Check by KB (HGB A1C) (64256) A1C 6.2 % (Normal) Range: 4.6-6.2 Comments: High risk of diabetes. 31-Jul-2012 PT (PROTHROMBIN TIME) Comments: Items in this order include: Draw Charge[i], Protime & INRINR value > 3.0 given to Estella by Beny Buckley patient have a artifical heart valve? No 13:32 ([facility]) (68042) 7. Saturday Dosage 5.0 mg (Normal) 6. [...] order include: Draw Charge[i], Protime & INR (39523) Draw Drawn (Normal) 23-Jun-2012 PSA (PROSTATE SPECIFIC Comments: A copy of this report will be faxed to: Bettie Boswell in this order include: Draw Charge[i], Protime & INR, PSAPSA allowed more than once a year due to being a Diagonistic PSA not a screening PSA 15:50 ANTIGEN) (89057) PSA 8.05 ng/mL (Abnormal) Range: 0.00-4.00 15:50 PT (PROTHROMBIN TIME) Comments: A copy of this report will be faxed to: Bettie Boswell in this order include: Draw Charge[i], Protime & INR , PSAPSA allowed more than once a year due to being a Diagonistic PSA not a screening ([facility]) (59236) PSADoes patient have a artifical heart valve? [...] a Diagonistic PSA not a screening PSA (49120) Draw Drawn (Normal) 13-May-2012 Draw Charge[i] Comments: [...] results to dr. hema boswell 14:28 ANTIGEN) (85123) PSA 16.45 ng/mL (Abnormal) Range: 0.00-4.00 14:28 PT (PROTHROMBIN TIME) Comments: Coumadin Dosage=5,5,5,7.5 Repeat. Took 7.5 on 04-27-12. ([facility]) (00431) 5. Dosage 7.5 Repeat mg (Normal) 4. Saturday Dosage 5.0 mg (Normal) 3. Saturday Dosage 5.0 mg (Normal) 2. Saturday Dosage 5.0 mg (Normal) 1. Saturday Dosage 7.5 mg (Normal) INR 2.17 (Normal) PT 22.7 s (Abnormal) Range: 10.4-12.4 14:28 Routine Venipuncture (92829) Draw Drawn (Normal) 13-May-2012 PSA (PROSTATE SPECIFIC Comments: A copy of this report will be faxed to: Bettie Boswell in this order include: PSA, Draw Charge[i]PSA allowed more than once a year due to being a Diagonistic PSA not a screening PSA 09:20 ANTIGEN) (71763) PSA 11.30 ng/mL (Abnormal) Range: 0.00-4.00 26-[id number]-1686 TSH (THYROID Comments: Items in this order include: TSH 16:40 STIMULATING HORMONE) (28078) TSH 1.36 uIU/ml (Normal) Range: 0.34-5.60 14:50 PT (PROTHROMBIN TIME) Comments: Items in this order include: Draw Charge[i], Basic Metabolic Panel, Hemoglobin A1C, Protime & INRLast Hbg A1C was ran 218 Days ago. Check by DL ([facility]) (27610) 5. Dosage Repeat mg (Normal) 4. Saturday [...] ran 218 Days ago. Check (HGB A1C) (79849) by DLplease draw enough blood so if [...] ran 218 Days ago. Check by DL (96751) Draw Drawn (Normal) [id number] DIGOXIN, DRUG ASSAY Comments: Items in this order include: CBC, Comprehensive Metabolic Panel, CKI, Digoxin, Draw Charge[i] 09:08 (11620) DIG 0.38 ng/mL (Abnormal) Range: 0.90-2.00 09:08 CK Comments: Items in this order include: CBC, Comprehensive Metabolic Panel, CKI, Digoxin, Draw Charge[i] CKI 143 U/L (Normal) Range: 39-308 09:08 CMP (74561) Comments: Items in this order include: CBC, [...] Metabolic Panel, CKI, Digoxin, Draw Charge[i] ONE! (33990) manual diff Not Indicated (Normal) mpv 6.84 [...] order include: Protime & INR, Draw Charge[i] (00625) Draw Drawn (Normal) 16:45 PT (PROTHROMBIN TIME) Comments: Items in this order include: Protime & INR, Draw Charge[i]Coumadin doasage=5,5,7.5 Repeat ([facility]) (99551) 7. Saturday Dosage 5.0 mg (Normal) 6. [...] order include: Draw Charge[i], PSA 11:11 ANTIGEN) (69508) PSA 6.92 ng/mL (Abnormal) Range: 0.00-4.00 11:11 Routine Venipuncture Comments: A copy of this report will be faxed to: Bettie Boswell in this order include: Draw Charge[i], PSA (76577) Draw Drawn (Normal) 17-Oct-2011 Routine Venipuncture 10:18 (34213) Draw Drawn (Normal) 10:18 TESTOSTERONE, FREE, Comments: Items in this order include: Protime & INR, Draw Charge[i], TESTOSTERONE, FREE, BIOAVAILABLE, AND TOTAL, LC/MS/ MSTesting performed at: [facility] [place], [address] [address], [place], [address], Senior Trainer: Michael Chávez [facility] TOTAL, LC/MS/MS ALBUMIN,SERUM 4.4 [...] TIME) ([facility]) (58978) 7. Saturday Dosage 5.0 mg (Normal) 6. [...] Panel, Hemoglobin A1C, Draw Charge[i] (HGB A1C) (79569) A1C 6.1 % (Normal) Range: 4.6-6.2 13:29 [...] (Normal) Range: 135-145 13:29 DIGOXIN, DRUG ASSAY (54742) DIG 0.85 ng/mL (Abnormal) Range: 0.90-2.00 07-Aug-2011 TESTOSTERONE, FREE, Comments: Items in this order include: TESTOSTERONE, FREE, BIOAVAILABLE, AND TOTAL, LC/MS/MSTesting performed at: [place], [address] [address], [place] , [address], [place] 12:53 WEAKLY BOUND AND TOTAL ratory Director: Michael Chávez MD.[facility] (33465) ALBUMIN,SERUM 4.4 g/dL (Normal) Range: 3.6-5.1 SEX [...] dose ([facility]) (15572) 7. Saturday Dosage 7.5 mg (Normal) 6. [...] Charge[i] ([facility]) (00014) 7. Saturday Dosage 5.0 mg (Normal) 5. [...] of this report will be faxed to: Lina Boswellms in this order include: PSA ANTIGEN) (21573) PSA 5.95 ng/mL (Abnormal) Range: 0.00-4.00 [id number]-3649 CBC-MALE- ORDER THIS Comments: Items in this order include : Hemoglobin A1C, Comprehensive Metabolic Panel, CBC 11:56 ONE! (46245) manual diff Not Indicated (Normal) mpv 7.65 [...] 6.24 10*3/uL (Normal) Range: 4.50-10.50 11:56 CMP (99492) Comments: Items in this order include: Hemoglobin [...] this order include: Digoxin, Draw Charge[i] 15:17 (26683) DIG 1.18 ng/mL (Normal) Range: 0.90-2.00 HEMOGLOBIN GLYCLATED Comments: Items in this order include: Hemoglobin A1C, Comprehensive Metabolic Panel, CBC 11:56 (HGB A1C) (63940) A1C 6.6 % (Abnormal) Range: 4.6-6.2 Comments: Consistent with diabetes. 13:48 PT (PROTHROMBIN TIME) Comments: change to coumadin 5mg x 2 day then 7.5mg x1 repeat the cycle; Items in this order include: Protime & INR, Draw Charge[i]cyclechange to coumadin 5mg x 2 day then 7.5mg x1 repeat the ([facility]) (49955) 6. Saturday Dosage 7.5 mg (Normal) 7. [...] & INR, PSA, Draw Charge[i] 09:43 ANTIGEN) (37729) PSA 5.84 ng/mL (Abnormal) Range: 0.00-4.00 09:43 PT (PROTHROMBIN TIME) Comments: no change in coumadin; no change in coumadin ([facility]) (87988) 7. Saturday Dosage 7.5 mg (Normal) 6. Saturday Dosage 5.0 mg (Normal) 5. Dosage 7.5 mg (Normal) 4. Saturday Dosage 5.0 mg (Normal) 3. Saturday Dosage 5.0 mg (Normal) 1. Saturday Dosage 5.0 mg (Normal) 2. Saturday Dosage 7.5 mg (Normal) INR 3.45 (Normal) PT 32.9 s (Abnormal) Range: 10.4-12.4 23-Nov-2010 PT (PROTHROMBIN TIME) 10:03 ([facility]) (46956) 6. Saturday Dosage 7.5 mg (Normal) 7. Saturday Dosage 5 mg (Normal) 1. Saturday Dosage 5 mg (Normal) 2. Saturday Dosage 7.5 mg (Normal) 3. Saturday Dosage 5 mg (Normal) 4. Saturday Dosage 7.5 mg (Normal) 5. Dosage 5 mg (Normal) INR 2.16 (Normal) PT 21.0 s (Abnormal) Range: 10.4-12.4 19-Oct-2010 PT (PROTHROMBIN TIME) 15:16 ([facility]) (95591) 6. Joao Dosage 5 mg (Normal) 7. Saturday Dosage 7.5 mg (Normal) 3. Saturday Dosage 7.5 mg (Normal) 4. Saturday Dosage 5 mg (Normal) 5. Dosage 7.5 mg (Normal) 1. Saturday Dosage 7.5 mg (Normal) 2. Saturday Dosage 5 mg (Normal) INR 2.13 (Normal) PT 20.7 s (Abnormal) Range: 10.4-12.4 12-Sep-2010 PT (PROTHROMBIN TIME) 11:03 ([facility]) (02488) INR 2.57 (Normal) PT (PROTHROMBIN TIME) 24.8 s (Abnormal) Range: 11.5-13.5 22-Aug-2010 PT (PROTHROMBIN TIME) 13:41 ([facility]) (90544) 09-Aug-2010 PSA, MEDICARE (G0103) Comments: please fax to dr hema boswell 09:54 PSA (Medicare) 4.83 ng/mL (Abnormal) Range: 0 - 4 09:34 PT (PROTHROMBIN TIME) ([facility]) (93543) INR 2.68 (Normal) PT (PROTHROMBIN TIME) 25.8 s (Abnormal) Range: 11.5-13.5 27-Jun-2010 PT (PROTHROMBIN TIME) 08:38 ([facility]) (83512) 26-Jun-2010 PT (PROTHROMBIN TIME) 16:21 ([facility]) (35326) INR 1.89 (Normal) PT (PROTHROMBIN TIME) 18.4 s (Abnormal) Range: 11.5-13.5 Treatment Plan PT (PROTHROMBIN TIME) ([facility]) (39588); Ordered: 03/15/2015Routine Venipuncture ( 24377); Ordered: 03/15/2015[facility] (86026); Ordered: 02/17/2015 Advance Directives Encounters Review - Benign essential hypertension (401.1 | I10), Health education (V65.40 | Z71.9), Bilateral knee pain (719.46 | M25.561, M25.562), Diabetes mellitus ( 250.00 | E11.9), Fibrillation, atrial (427.31 On ), Encounter for long-term (current) use of anticoagulants (V58.61 | Z79.01) 09:19 Encounter Reason: Hypertension - Note for "Hypertension": Here for a 6 month follow up with Dr. Nneka M.D. states doing fine except for my bilateral knees pain , they hurt worse to bend . also unable to walk up the stairs and I have to crawl. [facility] Historical Summary On [facility] 12:33 to 12:36 Lab entry only - Encounter for long-term (current) use of anticoagulants ( V58.61 | Z79.01) On [facility] 17:37 to 17:39 Lab entry only - Elevated PSA (790.93) On [facility] 10:10 to 10:11 Lab entry only - Encounter for long-term (current) use of anticoagulants ( V58.61 | Z79.01), Encounter for long-term (current) use of anticoagulants ( V58.61 | Z79.01) On 14-Jan-2015 [facility] 14:52 to 14:53 Lab entry only - Encounter for long-term (current) use of anticoagulants ( V58.61 | Z79.01), Encounter for long-term (current) use of anticoagulants ( V58.61 | Z79.01) On 29-Nov-2014 [facility] 12:31 to 15:09 Medication Entry - Diabetes mellitus (250.00 | E11.9) On 12-Nov-2014 [facility] 11:46 to 11:53 Medication Entry - Cellulitis, leg (682.6 | L03.119) On 11-Nov-2014 [facility] 09:48 to 10:00 Office Visit [...] "Transition into care": He feels things are improved.[facility] Historical Summary On 27-Oct-2014 [facility] 15:03 to 15:08 Lab entry only - Fibrillation, atrial (427.31), Encounter for long-term ( current) use of anticoagulants (V58.61 | Z79.01) On 18-Oct-2014 [facility] 17:08 to 17:09 Medication Entry - Gout (274.9 | M10.9) On 12-Oct-2014 [facility] 16:17 to 16:22 Lab entry only - Encounter for long-term (current) use of anticoagulants ( V58.61 | Z79.01) On 21-Sep-2014 [facility] 15:31 to 15:33 Radiology Visit - Carotid stenosis (433.10 | I65.29) On 14-Sep-2014 [facility] 09:33 to 09:36 Lab entry only - Encounter for long-term (current) use of anticoagulants ( V58.61 | Z79.01) On 24-Aug-2014 [facility] 16:31 to 16:34 Office Visit - Health education (V65.40 | Z71.9), Prevnar (PCV13)FOR MEDICARE USE ONLY Pneumovax injection (V03.82) [id number], Encounter for long-term ( current) use of [...] lifeline screening. He mentions the "discoloration" of ankles.[facility] Historical Summary On 11-Aug-2014 [facility] 16:16 to 16:19 Lab entry only - Fibrillation, atrial (427.31), Encounter for long-term ( current) use of anticoagulants (V58.61 | Z79.01) On 06-Aug-2014 [facility] 16:41 to 16:43 Medication Entry - Benign essential hypertension (401.1 | I10) On 21-Jun-2014 [facility] 11:12 to 11:14 Lab entry only - Encounter for long-term (current) use of anticoagulants ( V58.61 | Z79.01) On 03-Jun-2014 [facility] 16:13 to 16:15 Lab entry only - Encounter for long-term (current) use of anticoagulants ( V58.61 | Z79.01) On [facility] 13:22 to 13:23 Lab entry only - Elevated PSA (790.93), Encounter for long-term (current) use of anticoagulants (V58.61 | Z79.01) On [facility] 14:27 to 14:28 Office Visit [...] thing in the morning and on stairs. [facility] Historical Summary On 28-Dec-2013 [facility] 12:26 to 12:29 Medication Entry - Encounter for long-term (current) use of anticoagulants ( V58.61 | Z79.01), Diabetes mellitus (250.00 | E11.9), Fibrillation, atrial ( 427.31) On 03-Nov-2013 [facility] 09:01 to 11:53 Medication Entry - Fibrillation, atrial (427.31), Diabetes mellitus (250.00 | E11.9) On 30-Oct-2013 [facility] 15:55 to 16:00 Lab entry only - Encounter for long-term (current) use of anticoagulants ( V58.61 | Z79.01) On 27-Oct-2013 [facility] 17:57 to 17:59 Office Visit [...] M.D. after being in the hospital at [facility] on 10/16/13 & discharged on 10/17/13 dx jasmeet diaz, inr was done prior to visit.) . Note for "Transition into care": He passed a kidney stone a week ago.[facility] Historical Summary On 23-Oct-2013 [facility] 14:42 to 14:45 Lab entry only - Encounter for long-term (current) use of anticoagulants ( V58.61 | Z79.01) On 20-Oct-2013 [facility] 16:31 to 16:33 Lab entry only - Encounter for long-term (current) use of anticoagulants ( V58.61 | Z79.01) On 16-Sep-2013 [facility] 10:14 to 10:15 Lab entry only - Elevated PSA (790.93) On 15-Sep-2013 [facility] 11:11 to 11:12 Lab entry only - Encounter for long-term (current) use of anticoagulants ( V58.61 | Z79.01) On 07-Aug-2013 [facility] 14:32 to 14:33 Lab entry only - Benign essential hypertension (401.1 | I10), Diabetes mellitus (250.00 | E11.9) On 07-Aug-2013 [facility] 11:18 to 11:19 Lab entry only - Encounter for long-term (current) use of anticoagulants ( V58.61 | Z79.01) On 01-May-2013 [facility] 10:33 to 10:38 Office Visit [...] He did miss some meds while he traveled.[facility] Historical Summary On 29-Apr-2013 [facility] 11:46 to 11:49 Lab entry only - Encounter for long-term (current) use of anticoagulants ( V58.61 | Z79.01) On [facility] 16:39 to 16:42 Lab entry only - Encounter for long-term (current) use of anticoagulants ( V58.61 | Z79.01) On [facility] 19:40 to 19:42 Lab entry only - Elevated PSA (790.93) On [facility] 12:03 to 12:07 Office Visit [...] for "Cough": He has not had an antibiotic.[facility] Lab entry only - Encounter for long-term (current) use of anticoagulants ( V58.61 | Z79.01) On 16-Dec-2012 [facility] 18:21 to 18:23 Lab entry only - Encounter for long-term (current) use of anticoagulants ( V58.61 | Z79.01) On 27-Nov-2012 [facility] 16:52 to 16:53 Lab entry only - Encounter for long-term (current) use of anticoagulants ( V58.61) On 26-Nov-2012 [facility] 15:04 to 15:05 Office Visit [...] first thing in the morning and on stairs.[facility] Historical Summary On 29-Oct-2012 [facility] 16:15 to 16:17 Lab entry only - Encounter for long-term (current) use of anticoagulants ( V58.61) On 15-Oct-2012 [facility] 09:51 to 09:57 Lab entry only - Encounter for long-term (current) use of anticoagulants ( V58.61), Elevated PSA (790.93) On 14-Oct-2012 [facility] 10:25 to 10:26 Lab entry only - Encounter for long-term (current) use of anticoagulants ( V58.61) On 12-Sep-2012 [facility] 13:44 to 13:45 Medication Entry - Edema (782.3), Fibrillation, atrial (427.31) On 20-Aug-2012 [facility] 11:10 to 11:12 Medication Entry - Fibrillation, atrial (427.31), Edema (782.3) On 19-Aug-2012 [facility] 17:29 to 18:11 Medication Entry - Encounter for long-term (current) use of anticoagulants ( V58.61), Fibrillation, atrial (427.31), Diabetes mellitus (250.00) On 2011 [facility] 17:44 to 17:53 Office Visit - 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), Inflamed seborrheic keratosis (702.11), Hyperglycemia (790.29), Encounter for long-term (current) use of anticoagulants (V58.61), Fibrillation, atrial (427.31) On 01-Aug-2012 Encounter Reason: Follow up for chronic condition - The patient feels well with minor complaints (here today for a 3 month follow up with Dr. Romero ) .[facility] 09:34 to 10:39 Medication Entry - Encounter for long-term (current) use of anticoagulants ( V58.61) On 31-Jul-2012 [facility] 18:21 to 18:22 Historical Summary On 31-Jul-2012 [facility] 11:40 to 11:42 Lab entry only - Encounter for long-term (current) use of anticoagulants ( V58.61) On 23-Jun-2012 [facility] 18:47 to 18:52 Lab entry only - Elevated PSA (790.93), Encounter for long-term (current) use of anticoagulants (V58.61) On 23-Jun-2012 [facility] 15:48 to 15:53 Office Visit - Adjustment disorder with depressed mood (309.0), Encounter for long-term (current) use of anticoagulants (V58.61), Elevated PSA (790.93) On Encounter Reason: Follow up for chronic condition - The patient feels well with minor complaints (here for a 6 week follow up visit do to a new medication but did not start the medication).[facility] 11:19 to 13: 39 Historical Summary On 30-Apr-2012 [facility] 11:50 to 11:52 Lab entry only - Encounter for long-term (current) use of anticoagulants ( V58.61) On 28-Apr-2012 [facility] 17:23 to 17:26 Lab entry only - Elevated PSA (790.93), Encounter for long-term (current) use of anticoagulants (V58.61) On 28-Apr-2012 [facility] 14:19 to 14:22 Office Visit [...] , had lab done prior to appt today).[facility] Lab entry only - Edema (782.3), Hyperglycemia (790.29), Encounter for long- term (current) use of anticoagulants (V58.61) On [facility] 11:06 to 11:14 Lab entry only - Elevated PSA (790.93), Fibrillation, atrial (427.31), Edema ( 782.3) On [facility] 09:02 to 09:05 Lab entry only - Encounter for long-term (current) use of anticoagulants ( V58.61) On [facility] 16:44 to 16:45 Medication Entry On 26-Oct-2011 [facility] 13:30 to 13:32 Lab entry only - Elevated PSA (790.93) On 23-Oct-2011 [facility] 11:01 to 11:04 Lab entry only - Encounter for long-term (current) use of anticoagulants ( V58.61), Low testosterone (257.2) On 17-Oct-2011 [facility] 10:15 to 10:17 Medication Entry - Fibrillation, atrial (427.31) On 04-Oct-2011 [facility] 09:26 to 09:38 Medication Entry - Fibrillation, atrial (427.31), Edema (782.3), Encounter for long-term (current) use of anticoagulants (V58.61), Benign prostatic hypertrophy without lower urinary tract symptoms (LUTS) (600.00) On 02-Oct-2011 [facility] 18:56 to 19:02 Medication Entry - Encounter for long-term (current) use of anticoagulants ( V58.61), Fibrillation, atrial (427.31), Edema (782.3) On 26-Sep-2011 [facility] 11:06 to 11:11 Medication Entry - Fibrillation, atrial (427.31), Encounter for long-term ( current) use of anticoagulants (V58.61) On 24-Sep-2011 [facility] 10:41 to 10:49 Lab entry only - Low testosterone (257.2) On 10-Aug-2011 [facility] 13:03 to 13:05 Lab entry only - Hyperglycemia (790.29), Encounter for long-term (current) use of anticoagulants (V58.61), Fibrillation, atrial (427.31) On 08-Aug-2011 [facility] 13:27 to 13:29 Office Visit [...] he 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." [facility] Historical Summary On 06-Aug-2011 [facility] 12:22 to 12:24 Medication Entry - Fibrillation, atrial (427.31) On 05-Jun-2011 [facility] 08:54 to 08:59 Lab entry only - Encounter for long-term (current) use of anticoagulants ( V58.61) On 15-May-2011 [facility] 18:48 to 18:50 Office Visit [...] up is diabetes, hypertension, cardiovascular disorder and other.[facility] Medication Entry - Benign prostatic hypertrophy without lower urinary tract symptoms (LUTS) (600.00) On 19-Apr-2011 [facility] 08:49 to 08:51 Lab entry only - Benign prostatic hypertrophy without lower urinary tract symptoms (LUTS) (600.00) On 10-Apr-2011 [facility] 15:15 to 15:19 Office Visit [...] seeing dr. boswell the middle of apr.). [facility] Historical Summary On [facility] 16:05 to 16:18 Lab entry only - Encounter for long-term (current) use of anticoagulants ( V58.61) On [facility] 17:34 to 17:36 Lab entry only - Encounter for long-term (current) use of anticoagulants ( V58.61), Elevated PSA (790.93) On [facility] 09:42 to 09:43 Lab entry only - Encounter for long-term (current) use of anticoagulants ( V58.61) On 24-Nov-2010 [facility] 08:55 to 08:57 Lab entry only - Encounter for long-term (current) use of anticoagulants ( V58.61) On 20-Oct-2010 [facility] 14:42 to 14:46 Historical Summary - Encounter for long-term (current) use of anticoagulants ( V58.61) On 13-Sep-2010 [facility] 10:53 to 10:59 Historical Summary 12-Sep-2010 to 13-Sep-2010 [facility] Lab entry only - Encounter for long-term (current) use of anticoagulants ( V58.61) On 14-Aug-2010 [facility] 17:44 to 17:49 Historical Summary - Elevated PSA (790.93) 09-Aug-2010 to 15-Aug-2010 [facility] Lab entry only - Encounter for long-term (current) use of anticoagulants ( V58.61) 27-Jun-2010 to 28-Jun-2010 [facility] Lab entry only - Encounter for long-term (current) use of anticoagulants ( V58.61) On 26-Jun-2010 [facility] 16:21 to 22:23 Insurance Vijay Yuan; a guarantorMedicare [employer]erve [employer] LifeState [employer] Insurance[employer]
--- OUTSIDE RECORDS SUMMARY | 2017-10-22 18:05 | External Medical Summary | Continuity of Care Document ---
:1940 Author Organization [facility] Address [address] [place] [address] Phone Care Team Providers Name Role Phone [...] Comments:started on 10/17/13 after being dismissed from [facility] for kidney stone by gale CITALOPRAM [...] dx kidney stone from being discharged from [facility] PROMETHAZINE-DM, 6.25-15MG/5ML (Oral Syrup) 1-2 tsp [...] Ordered:27-Jul-2015 HIGH DOSE QUADRIVALENT INFLUENZA Ordered:25-Jul-2015 VACCINE ([id number]) ADMINISTRATION OF INFLUENZA VIRUS Ordered:25-Jul-2015 VACCINE ([id number]) Follow up in 3 months Ordered:25-Jul-2015 Follow up in 4 months Ordered: X-RAY EXAM OF KNEE, 1 OR 2 VIEWS Completed: Comments: right ([id number]) X-RAY EXAM OF BOTH KNEES, Completed: STANDING (76238) How to access health information Completed: online Follow up - Keep appt as scheduled Ordered:28-Oct-2014 CAROTID BILATERAL US ([id number]) Completed:14-Sep-2014 Comments: Verbal order from Dr. James Romero Follow up in 6 months Ordered:12-Aug-2014 PREVNAR 13 VALENT PNEUMOCOCCAL Completed:12-Aug-2014 VACCINE ([id number]) ADMINISTRATION OF PNEUMOCOCCAL Ordered:12-Aug-2014 CONJUGATE VACCINE (G0009) How to access health information Completed:12-Aug-2014 online Follow up in 6 months Ordered: Follow up in 2 months Ordered:26-Oct-2013 ADMIN INFLUENZA VIRUS VAC: FLU VACC Completed:26-Oct-2013 PRSV FREE INC ANTIG (26494) ADMINISTRATION OF INFLUENZA VIRUS Ordered:26-Oct-2013 VACCINE (G0008) Follow up in 6 months Ordered:30-Apr-2013 Follow up - Keep appt as scheduled Ordered:02-Jan-2013 Follow up in 6 months Ordered:30-Oct-2012 Follow up in 3 months Ordered:01-Aug-2012 Follow up in 3 months Ordered:01-May-2012 Follow up in 6 weeks Ordered: ADMINISTRATION OF INFLUENZA VIRUS Ordered:14-May-2011 VACCINE (G0008) FLU VACC PRSV FREE INC ANTIG Completed:14-May-2011 ([id number]) Follow up in 2 months Ordered:14-May-2011 Follow up in 2 months Ordered: Annual Eye Exam Completed:22-Nov-2008 Colonoscopy, Screening Completed: Colonoscopy, Screening Completed:06-Oct-2014 Flu Vaccine Completed:26-Oct-2013 Flu Vaccine Completed:06-Jun-2012 Comments: [facility] Flu Vaccine Completed:14-May-2011 Comments: high dose [...] Site: Deltoid (Left); high dose Lot #: [id number] Influenza, preserv. free, enhanced immunogncty, IM Administered on:2013 Comments: Site: Deltoid (Left) Lot #: [id number] Pneumococcal conjugate vaccine, 13 valent, IM Administered on:12-Aug-2014 Comments: Site: Deltoid (Left) Lot #: [id number] Social History Name Dates Details Tobacco use: [...] Comments: The left neck Final 10:36 SINGLE (23764) lesion was removed and also the left [...] not sent to pathology. 10:35 PUNCH BIOPSY (96533) Comments: After Final FIRST BIOPSY cleansing the [...] artifical heart valve? No ([facility]) (82387) 9. Saturday Dosage Repeat mg (Normal) 8. [...] Charge[i], Protime & INR, PSA 16:21 ANTIGEN) (30583) PSA 6.00 ng/mL (Abnormal) Range: 0.00-4.00 16:21 PT (PROTHROMBIN TIME) Comments: Does patient have a artifical heart valve? No ([facility]) (86484) 8. Saturday Dosage 5.0 mg (Normal) 9. Saturday Dosage 7.5 mg (Normal) 6. Saturday Dosage 7.5 mg (Normal) 7. Dosage 7.5 mg (Normal) 5. Saturday Dosage 5.0 mg (Normal) 4. Saturday Dosage 7.5 mg (Normal) 3. Saturday Dosage 7.5 mg (Normal) INR 2.21 (Normal) PT 24.2 s (Abnormal) Range: 9.3-11.7 16:21 Routine Venipuncture (10215) Draw Drawn (Normal) 25-Oct-2015 URIC ACID BLOOD (68251) Comments: Items in this order include : CBC, Comprehensive Metabolic Panel, CKI, Hemoglobin A1C, Uric Acid, Draw Charge[i] 11:21 Uric Acid 5.5 mg/dL (Normal) Range: 3.5-7.2 11:21 HEMOGLOBIN GLYCLATED (HGB A1C) (74662) A1C 6.2 % (Normal) Range: 4.6-6.2 Comments: High risk of diabetes. 11:21 CK (52734) Comments: Items in this order include: CBC, Comprehensive Metabolic Panel, CKI, Hemoglobin A1C, Uric Acid, Draw Charge[i] CKI 288 U/L (Normal) Range: 39-308 11:21 CMP (71463) Comments: Items in this order include: CBC, [...] 135-145 11:21 CBC MALE- ORDER THIS ONE! (14469) manual diff Not Indicated (Normal) mpv 9.80 [...] heart valve? No 15:06 ([facility]) (00040) 9. Saturday Dosage 7.5 mg (Normal) 8. [...] order include: Draw Charge[i], Protime & INR (82955) Draw Drawn (Normal) [facility] (79174) Comments: Items in this order include: Basic [...] include: A COPY TO , PSA ANTIGEN) (34608) PSA 6.55 ng/mL (Abnormal) Range: 0.00-4.00 09:[address] Boswell Comments: A copy of this report will be faxed to: Bettie Boswell in this order include: A COPY TO [eliana, PSA Ordering Doctor . (Normal) 09:15 PT (PROTHROMBIN TIME) Comments: Items in this order include: Draw Charge[i], Protime & INRDoes patient have a artifical heart valve? No ([facility]) (99514) 8. Saturday Dosage 7.5 mg (Normal) 9. [...] order include: Draw Charge[i], Protime & INR (37600) Draw Drawn (Normal) -Dec-2014 PT (PROTHROMBIN TIME) Comments: Items in this order include: Draw Charge[i], Protime & INRDoes patient have a artifical heart valve? No 09:28 ([facility]) (10251) 9. Saturday Dosage 5.0 mg (Normal) 7. [...] order include: Draw Charge[i], Protime & INR (39576) Draw Drawn (Normal) 28-Oct-2014 PT (PROTHROMBIN TIME) Comments: Items in this order include: Draw Charge[i], Protime & INRDoes patient have a artifical heart valve? No 10:48 ([facility]) (95565) 9. Saturday Dosage 7.5 mg (Normal) 8. [...] order include: Draw Charge[i], Protime & INR (88676) Draw Drawn (Normal) 29-Nov-2014 PT (PROTHROMBIN TIME) Comments: Items in this order include: Draw Charge[i], Protime & INRDoes patient have a artifical heart valve? No 10:28 ([facility]) (40035) 9. Saturday Dosage 5.0 mg (Normal) 8. [...] order include: Draw Charge[i], Protime & INR (01747) Draw Drawn (Normal) 21-Sep-2014 PT (PROTHROMBIN TIME) Comments: Items in this order include: Draw Charge[i], Protime & INRDolynn patient have a artifical heart valve? No 10:08 ([facility]) (56424) 9. Saturday Dosage 5.0 mg (Normal) 7. [...] order include: Draw Charge[i], Protime & INR (38237) Draw Drawn (Normal) 24-Aug-2014 Routine Venipuncture Comments: Items in this order include: Protime & INR, Draw Charge[i] 09:59 (96003) Draw Drawn (Normal) 09:59 PT (PROTHROMBIN TIME) Comments: Items in this order include: Protime & INR, Draw Charge[i]INR value > 3.0 given to Estella by Beny Buckley patient have a artifical heart valve? No ([facility]) (28670) 9. Saturday Dosage 7.5 mg (Normal) 7. [...] Panel, Hemoglobin A1C, Urine Microalbumin, CBC ONE! (61875) manual diff Not Indicated (Normal) mpv 9.60 [...] Metabolic Panel, Hemoglobin A1C, Urine Microalbumin, CBC (04832) U A:C RATIO <30 mg/g Normal Range: <30 mg/g Normal (Normal) U CREAT 200 mg/dL (Normal) Range: 10-300 U ALB 80 mg/L (Abnormal) Range: 10 mg/L 09:59 HEMOGLOBIN GLYCLATED Comments: Items in this order include: Digoxin , PSA, Basic Metabolic Panel, Hemoglobin A1C, Urine Microalbumin, CBC (HGB A1C) (54905) A1C 5.9 % (Normal) Range: 4.6-6.2 Comments: Increased risk of diabetes. 09:59 [facility] (09618) Comments: Items in this order include: Digoxin, [...] Panel, Hemoglobin A1C, Urine Microalbumin, CBC ANTIGEN) (26220) PSA 7.11 ng/mL (Abnormal) Range: 0.00-4.00 09:59 DIGOXIN (14269) Comments: Items in this order include: Digoxin, PSA , Basic Metabolic Panel, Hemoglobin A1C, Urine Microalbumin, CBCTime of Last Dose? 08/23/2014 8:00 AMDosage? 0.25 DIG 0.36 ng/mL (Abnormal) Range: 0.90-2.00 05-Aug-2014 PT (PROTHROMBIN TIME) Comments: Items in this order include: Draw Charge[i], Protime & INRDoes patient have a artifical heart valve? No 10:48 ([facility]) (65371) 8. Saturday Dosage 7.5 mg (Normal) 9. [...] order include: Draw Charge[i], Protime & INR (54997) Draw Drawn (Normal) 03-Jun-2014 PT (PROTHROMBIN TIME) Comments: Items in this order include: Draw Charge[i], Protime & INRDoes patient have a artifical heart valve? No 13:56 ([facility]) (12537) 9. Saturday Dosage 7.5 mg (Normal) 8. [...] order include: Draw Charge[i], Protime & INR (99931) Draw Drawn (Normal) PT (PROTHROMBIN TIME) Comments: Items in this order include: Protime & INRDoes patient have a artifical heart valve? No 14:25 ([facility]) (20715) 9. Saturday Dosage 5.0 mg (Normal) 8. [...] this order include: Draw Charge[i], PSA ANTIGEN) (16524) PSA 6.15 ng/mL (Abnormal) Range: 0.00-4.00 14:25 Routine Venipuncture Comments: A copy of this report will be faxed to: Bettie Boswell in this order include: Draw Charge[i], PSA (13340) Draw Drawn (Normal) -January-2014 HEMOGLOBIN GLYCLATED Comments: Items in this order include: Hemoglobin A1C, Draw Charge[i], Comprehensive Metabolic Panel, Uric Acid 15:06 (HGB A1C) (75676) A1C 5.7 % (Normal) Range: 4.6-6.2 15:06 CMP (58178) Comments: Items in this order include: Hemoglobin [...] (Normal) Range: 135-145 15:06 URIC ACID BLOOD (09202) Comments: Items in this order include: Hemoglobin A1C, Draw Charge[i], Comprehensive Metabolic Panel, Uric Acid Uric Acid 8.0 mg/dL (Abnormal) Range: 3.6-7.7 15:06 Routine Venipuncture Comments: Items in this order include: Hemoglobin A1C, Draw Charge[i], Comprehensive Metabolic Panel, Uric Acid (61836) Draw Drawn (Normal) PT (PROTHROMBIN TIME) Comments: Items in this order include: Draw Charge[i], Protime & INRDoes patient have a artifical heart valve? No 14:27 ([facility]) (35069) 8. Saturday Dosage 5.0 mg (Normal) 9. [...] order include: Draw Charge[i], Protime & INR (50241) Draw Drawn (Normal) 26-Oct-2013 Draw Charge[i] Comments: Items in this order include: Basic Metabolic Panel, Draw Charge[i] 17:08 Draw Drawn (Normal) 17:[address] [facility] (89354) Comments: Items in this order include: Basic [...] artifical heart valve? No ([facility]) (31608) 9. Saturday Dosage 5.0 mg (Normal) 7. [...] order include: Draw Charge[i], Protime & INR (48022) Draw Drawn (Normal) 15-Sep-2013 PSA (PROSTATE SPECIFIC Comments: A copy of this report will be faxed to: Bettie Boswell in this order include: A COPY TO [kyung] PSAPSA allowed more than once a year due to being a Diagonistic PSA not a screening PSA 11:05 ANTIGEN) (88513) PSA 5.40 ng/mL (Abnormal) Range: 0.00-4.00 11:05 [...] this order include: Comprehensive Metabolic Panel, Hemoglobin [id number] Hgb A1C was ran 99 Days ago. Check by MARGARITA 10:38 (HGB A1C) (89742) A1C 5.9 % (Normal) Range: 4.6-6.2 Comments: Increased risk of diabetes. 10:38 CMP (28180) Comments: Items in this order include: Comprehensive Metabolic Panel, Hemoglobin [id number] Hgb A1C was ran 99 Days ago. [...] artifical heart valve? No ([facility]) (23745) 9. Saturday Dosage 5.0 (cycle of 5,5,7.5 [...] order include: Draw Charge[i], Protime & INR (34929) Draw Drawn (Normal) 10:38 DIGOXIN (67972) Comments: Items in this order include: DigoxinTime of Last Dose? 08/06/2013 8:30 AMDosage? 0.25 mg daily DIG 0.48 ng/mL (Abnormal) Range: 0.90-2.00 30-Apr-2013 HEMOGLOBIN GLYCLATED Comments: Items in this order include: Comprehensive Metabolic Panel, CBC, Hemoglobin [id number] Hgb A1C was ran 225 Days ago. Check by ms 11:58 (HGB A1C) (17897) A1C 6.1 % (Normal) Range: 4.6-6.2 11:58 CBC MALE- ORDER THIS Comments: Items in this order include: Comprehensive Metabolic Panel, CBC, Hemoglobin [id number] Hgb A1C was ran 225 Days ago. Check by ms ONE! (91300) manual diff Not Indicated (Normal) mpv 4.88 [...] 6.15 10*3/uL (Normal) Range: 4.50-10.50 11:58 CMP (09711) Comments: Items in this order include: Comprehensive Metabolic Panel, CBC, Hemoglobin A2YWdbb Hgb A1C was ran 225 Days ago. [...] artifical heart valve? No ([facility]) (41231) 4. Saturday Dosage Repeat mg (Normal) 3. Saturday Dosage 7.5 mg (Normal) 2. Saturday Dosage 5.0 mg (Normal) 1. Saturday Dosage 5.0 mg (Normal) INR 2.60 (Normal) PT 26.8 s (Abnormal) Range: 10.4-12.4 PT (PROTHROMBIN TIME) Comments: Items in this order include: Draw Charge[i], Protime & INRDoes patient have a artifical heart valve? No 15:12 ([facility]) (98264) 5. Dosage Repeat mg (Normal) 4. Saturday Dosage 5.0 mg (Normal) 3. Saturday Dosage 5.0 mg (Normal) 2. Saturday Dosage 7.5 mg (Normal) INR 2.31 (Normal) PT 24.0 s (Abnormal) Range: 10.4-12.4 15:12 Routine Venipuncture Comments: Items in this order include: Draw Charge[i], Protime & INR (70029) Draw Drawn (Normal) PSA (PROSTATE SPECIFIC Comments: A copy of this report will be faxed to: Bettie Boswell in this order include: PSA, Draw Charge[i]PSA allowed more than once a year due to being a Diagonistic PSA not a screening PSA 10:00 ANTIGEN) (50563) PSA 5.60 ng/mL (Abnormal) Range: 0.00-4.00 10:00 [...] artifical heart valve? No ([facility]) (70069) 3. Saturday Dosage Repeat mg (Normal) 2. Saturday Dosage 7.5 mg (Normal) 1. Saturday Dosage 5.0 mg (Normal) INR 2.64 (Normal) PT 27.2 s (Abnormal) Range: 10.4-12.4 10:09 Routine Venipuncture Comments: Items in this order include: Draw Charge[i], Protime & INR (52011) Draw Drawn (Normal) 16-Dec-2012 PT (PROTHROMBIN TIME) Comments: Items in this order include: Draw Charge[i], Protime & INRDoes patient have a artifical heart valve? No 10:46 ([facility]) (47948) 4. Saturday Dosage Repeat mg (Normal) 3. Saturday Dosage 5.0 mg (Normal) 2. Saturday Dosage 7.5 mg (Normal) INR 2.13 (Normal) PT 22.2 s (Abnormal) Range: 10.4-12.4 10:46 Routine Venipuncture Comments: Items in this order include: Draw Charge[i], Protime & INR (25219) Draw Drawn (Normal) 26-Nov-2012 Routine Venipuncture Comments: Items in this order include: Protime & INR, Draw Charge[i] 15:05 (96258) Draw Drawn (Normal) 15:05 PT (PROTHROMBIN TIME) Comments: Items in this order include: Protime & INR, Draw Charge[i]Does patient have a artifical heart valve? No ([facility]) (23971) 4. Saturday Dosage 5.0 Repeat mg (Normal) 3. Saturday Dosage 5.0 mg (Normal) 2. Saturday Dosage 7.5 mg (Normal) INR 1.34 (Normal) PT 14.4 s (Abnormal) Range: 10.4-12.4 30-Oct-2012 PT (PROTHROMBIN TIME) Comments: Items in this order include: Draw Charge[i], Protime & INRINR value > 3.0 given to BW by Froy Chávez patient have a artifical heart valve? No 10:38 ([facility]) (71192) 7. Saturday Dosage 7.5 mg (Normal) 6. [...] order include: Draw Charge[i], Protime & INR (72103) Draw Drawn (Normal) 11:33 BMP Comments: Items [...] Dose? 10/29/2012 8:00 PMDosage? 0.25 mg Daily (46959) DIG 1.64 ng/mL (Normal) Range: 0.90-2.00 14-Oct-2012 PSA (PROSTATE SPECIFIC Comments: A copy of this report will be faxed to: Bettie Boswell in this order include: Draw Charge[i], Protime & INR, PSAPSA allowed more than once a year due to being a Diagonistic PSA not a screening PSA 10:25 ANTIGEN) (14891) PSA 8.11 ng/mL (Abnormal) Range: 0.00-4.00 10:25 PT (PROTHROMBIN TIME) Comments: PSA allowed more than once a year due to being a Diagonistic PSA not a screening PSACoumadin dosage=5,5,5,5,7.5 repeatDoes patient have a artifical heart valve? No ([facility]) (91107) 7. Saturday Dosage 7.5 mg (Normal) 6. [...] a Diagonistic PSA not a screening PSA (59856) Draw Drawn (Normal) 12-Sep-2012 PT (PROTHROMBIN TIME) Comments: Items in this order include: Draw Charge[i], Protime & INRDoes patient have a artifical heart valve? No 09:16 ([facility]) (71830) 6. Saturday Dosage Repeat mg (Normal) 5. Dosage 7.5 mg (Normal) 4. Saturday Dosage 5.0 mg (Normal) 3. Saturday Dosage 5.0 mg (Normal) 2. Saturday Dosage 5.0 mg (Normal) 1. Saturday Dosage 5.0 mg (Normal) INR 2.48 (Normal) PT 25.7 s (Abnormal) Range: 10.4-12.4 09:16 Routine Venipuncture Comments: Items in this order include: Draw Charge[i], Protime & INR (76707) Draw Drawn (Normal) 18-Aug-2012 PT (PROTHROMBIN TIME) Comments: Items in this order include: Protime & INRDoes patient have a artifical heart valve? No 11:44 ([facility]) (16757) 7. Saturday Dosage 5.0 mg (Normal) 6. [...] Days ago. Check by KB (HGB A1C) (33949) A1C 6.2 % (Normal) Range: 4.6-6.2 Comments: High risk of diabetes. 31-Jul-2012 PT (PROTHROMBIN TIME) Comments: Items in this order include: Draw Charge[i], Protime & INRINR value > 3.0 given to Buffdeepthi by Beny Buckley patient have a artifical heart valve? No 13:32 ([facility]) (47485) 7. Saturday Dosage 5.0 mg (Normal) 6. [...] order include: Draw Charge[i], Protime & INR (69667) Draw Drawn (Normal) 23-Jun-2012 PSA (PROSTATE SPECIFIC Comments: A copy of this report will be faxed to: Bettie Boswell in this order include: Draw Charge[i], Protime & INR, PSAPSA allowed more than once a year due to being a Diagonistic PSA not a screening PSA 15:50 ANTIGEN) (11686) PSA 8.05 ng/mL (Abnormal) Range: 0.00-4.00 15:50 PT (PROTHROMBIN TIME) Comments: A copy of this report will be faxed to: Bettie Boswell in this order include: Draw Charge[i], Protime & INR , PSAPSA allowed more than once a year due to being a Diagonistic PSA not a screening ([facility]) (05636) PSADoes patient have a artifical heart valve? [...] a Diagonistic PSA not a screening PSA (47301) Draw Drawn (Normal) 13-May-2012 Draw Charge[i] Comments: [...] results to dr. hema boswell 14:28 ANTIGEN) (85484) PSA 16.45 ng/mL (Abnormal) Range: 0.00-4.00 14:28 PT (PROTHROMBIN TIME) Comments: Coumadin Dosage=5,5,5,7.5 Repeat. Took 7.5 on 04-27-12. ([facility]) (80238) 5. Dosage 7.5 Repeat mg (Normal) 4. Saturday Dosage 5.0 mg (Normal) 3. Saturday Dosage 5.0 mg (Normal) 2. Saturday Dosage 5.0 mg (Normal) 1. Saturday Dosage 7.5 mg (Normal) INR 2.17 (Normal) PT 22.7 s (Abnormal) Range: 10.4-12.4 14:28 Routine Venipuncture (78540) Draw Drawn (Normal) 13-May-2012 PSA (PROSTATE SPECIFIC Comments: A copy of this report will be faxed to: Bettie Boswell in this order include: PSA, Draw Charge[i]PSA allowed more than once a year due to being a Diagonistic PSA not a screening PSA 09:20 ANTIGEN) (10959) PSA 11.30 ng/mL (Abnormal) Range: 0.00-4.00 TSH (THYROID Comments: Items in this order include: TSH 16:40 STIMULATING HORMONE) (61186) TSH 1.36 uIU/ml (Normal) Range: 0.34-5.60 14:50 PT (PROTHROMBIN TIME) Comments: Items in this order include: Draw Charge[i], Basic Metabolic Panel, Hemoglobin A1C, Protime & INRLast Hbg A1C was ran 218 Days ago. Check by DL ([facility]) (01463) 5. Dosage Repeat mg (Normal) 4. Saturday [...] ran 218 Days ago. Check (HGB A1C) (27861) by DLplease draw enough blood so if [...] ran 218 Days ago. Check by DL (45432) Draw Drawn (Normal) DIGOXIN, DRUG ASSAY Comments: Items in this order include: CBC, Comprehensive Metabolic Panel, CKI, Digoxin, Draw Charge[i] 09:08 (90818) DIG 0.38 ng/mL (Abnormal) Range: 0.90-2.00 09:08 CK Comments: Items in this order include: CBC, Comprehensive Metabolic Panel, CKI, Digoxin, Draw Charge[i] CKI 143 U/L (Normal) Range: 39-308 09:08 CMP (66462) Comments: Items in this order include: CBC, [...] Metabolic Panel, CKI, Digoxin, Draw Charge[i] ONE! (52398) manual diff Not Indicated (Normal) mpv 6.84 [...] order include: Protime & INR, Draw Charge[i] (42153) Draw Drawn (Normal) 16:45 PT (PROTHROMBIN TIME) Comments: Items in this order include: Protime & INR, Draw Charge[i]Coumadin doasage=5,5,7.5 Repeat ([facility]) (66156) 7. Saturday Dosage 5.0 mg (Normal) 6. [...] order include: Draw Charge[i], PSA 11:11 ANTIGEN) (54415) PSA 6.92 ng/mL (Abnormal) Range: 0.00-4.00 11:11 Routine Venipuncture Comments: A copy of this report will be faxed to: Bettie Boswell in this order include: Draw Charge[i], PSA (62296) Draw Drawn (Normal) 17-Oct-2011 Routine Venipuncture 10:18 (92812) Draw Drawn (Normal) 10:18 TESTOSTERONE, FREE, Comments: Items in this order include: Protime & INR, Draw Charge[i], TESTOSTERONE, FREE, BIOAVAILABLE, AND TOTAL, LC/MS/ MSTesting performed at: [email or web address], [address] [place] [employer], AND , [place], [address], Senior Site Manager: Michael Chávez [facility] TOTAL, LC/MS/MS ALBUMIN,SERUM [...] 10:18 PT (PROTHROMBIN TIME) ([facility]) (47122) 7. Saturday Dosage 5.0 mg (Normal) 6. [...] Panel, Hemoglobin A1C, Draw Charge[i] (HGB A1C) (16965) A1C 6.1 % (Normal) Range: 4.6-6.2 13:29 [...] (Normal) Range: 135-145 13:29 DIGOXIN, DRUG ASSAY (81171) DIG 0.85 ng/mL (Abnormal) Range: 0.90-2.00 07-Aug-2011 TESTOSTERONE, FREE, Comments: Items in this order include: TESTOSTERONE, FREE, BIOAVAILABLE, AND TOTAL, LC/MS/MSTesting performed at: [email or web address], [address] [address] , [place] , [address], [place] 12:53 WEAKLY BOUND AND TOTAL ratory Director: Michael Chávez MD.[facility] (56858) ALBUMIN,SERUM 4.4 g/dL (Normal) Range: 3.6-5.1 SEX [...] change in coumadin dose ([facility]) (96121) 7. Saturday Dosage 7.5 mg (Normal) 6. [...] & INR, Draw Charge[i] ([facility]) (87115) 7. Saturday Dosage 5.0 mg (Normal) 5. [...] Boswell in this order include: PSA ANTIGEN) (75823) PSA 5.95 ng/mL (Abnormal) Range: 0.00-4.00 CBC-MALE- ORDER THIS Comments: Items in this order include : Hemoglobin A1C, Comprehensive Metabolic Panel, CBC 11:56 ONE! (75179) manual diff Not Indicated (Normal) mpv 7.65 [...] 6.24 10*3/uL (Normal) Range: 4.50-10.50 11:56 CMP (00081) Comments: Items in this order include: Hemoglobin [...] this order include: Digoxin, Draw Charge[i] 15:17 (23357) DIG 1.18 ng/mL (Normal) Range: 0.90-2.00 HEMOGLOBIN GLYCLATED Comments: Items in this order include: Hemoglobin A1C, Comprehensive Metabolic Panel, CBC 11:56 (HGB A1C) (37286) A1C 6.6 % (Abnormal) Range: 4.6-6.2 Comments: Consistent with diabetes. 13:48 PT (PROTHROMBIN TIME) Comments: change to coumadin 5mg x 2 day then 7.5mg x1 repeat the cycle; Items in this order include: Protime & INR, Draw Charge[i]cyclechange to coumadin 5mg x 2 day then 7.5mg x1 repeat the ([facility]) (16551) 6. Saturday Dosage 7.5 mg (Normal) 7. [...] & INR, PSA, Draw Charge[i] 09:43 ANTIGEN) (94326) PSA 5.84 ng/mL (Abnormal) Range: 0.00-4.00 09:43 PT (PROTHROMBIN TIME) Comments: no change in coumadin; no change in coumadin ([facility]) (56169) 7. Saturday Dosage 7.5 mg (Normal) 6. Saturday Dosage 5.0 mg (Normal) 5. Dosage 7.5 mg (Normal) 4. Saturday Dosage 5.0 mg (Normal) 3. Saturday Dosage 5.0 mg (Normal) 1. Saturday Dosage 5.0 mg (Normal) 2. Saturday Dosage 7.5 mg (Normal) INR 3.45 (Normal) PT 32.9 s (Abnormal) Range: 10.4-12.4 23-Nov-2010 PT (PROTHROMBIN TIME) 10:03 ([facility]) (32296) 6. Saturday Dosage 7.5 mg (Normal) 7. Saturday Dosage 5 mg (Normal) 1. Saturday Dosage 5 mg (Normal) 2. Saturday Dosage 7.5 mg (Normal) 3. Saturday Dosage 5 mg (Normal) 4. Saturday Dosage 7.5 mg (Normal) 5. Dosage 5 mg (Normal) INR 2.16 (Normal) PT 21.0 s (Abnormal) Range: 10.4-12.4 19-Oct-2010 PT (PROTHROMBIN TIME) 15:16 ([facility]) (58660) 6. Saturday Dosage 5 mg (Normal) 7. Saturday Dosage 7.5 mg (Normal) 3. Saturday Dosage 7.5 mg (Normal) 4. Saturday Dosage 5 mg (Normal) 5. Dosage 7.5 mg (Normal) 1. Saturday Dosage 7.5 mg (Normal) 2. Saturday Dosage 5 mg (Normal) INR 2.13 (Normal) PT 20.7 s (Abnormal) Range: 10.4-12.4 12-Sep-2010 PT (PROTHROMBIN TIME) 11:03 ([facility]) (32892) INR 2.57 (Normal) PT (PROTHROMBIN TIME) 24.8 s (Abnormal) Range: 11.5-13.5 22-Aug-2010 PT (PROTHROMBIN TIME) 13:41 ([facility]) (39111) 09-Aug-2010 PSA, MEDICARE (G0103) Comments: please fax to dr hema boswell 09:54 PSA (Medicare) 4.83 ng/mL (Abnormal) Range: 0 - 4 09:34 PT (PROTHROMBIN TIME) ([facility]) ([id number]) INR 2.68 (Normal) PT (PROTHROMBIN TIME) 25.8 s (Abnormal) Range: 11.5-13.5 27-Jun-2010 PT (PROTHROMBIN TIME) 08:38 ([facility]) ([id number]) 26-Jun-2010 PT (PROTHROMBIN TIME) 16:21 ([facility]) ([id number]) INR 1.89 (Normal) PT (PROTHROMBIN TIME) 18.4 s (Abnormal) Range: 11.5-13.5 Treatment Plan PT (PROTHROMBIN TIME) ([facility]) ([id number]); Ordered: 11/01/2015; Note: Verbal order from Dr. James Esposito PANEL ([id number]); Ordered: 11/01/2015; Note: Verbal order from Dr. James Romero Advance Directives Encounters Review On 27-Oct-2015 Encounter Reason: Hypertension - No changes in management were made at the last visit. Symptoms do not include headache or dizziness. The patient describes this as unchanged. Symptoms are not exacerbated by stress or fat 09: 48 igue. Associated symptoms do not include chest [...] problems with his a-fib at todays visit. 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 He said he is having quite a bit of pain with the nodule and some occasional drainage. Seems to be recurrent for him. 09:10 to 09:52 [facility] Office Visit - PG (pyogenic granuloma) [...] nail problems": He continues with his usual medications.[facility] Lab entry only - Encounter for long-term (current) use of anticoagulants ( V58.61 | Z79.01) On 07-Jul-2015 [facility] 16:55 to 16:56 Office Visit - [...] the stairs and I have to crawl. [facility] Historical Summary On [facility] 12:33 to 12:36 Lab entry only - Encounter for long-term (current) use of anticoagulants ( V58.61 | Z79.01) On [facility] 17:37 to 17:39 Lab entry only - Elevated PSA (790.93) On [facility] 10:10 to 10:11 Lab entry only - Encounter for long-term (current) use of anticoagulants ( V58.61 | Z79.01), Encounter for long-term (current) use of anticoagulants ( V58.61 | Z79.01) On 14-Jan-2015 [facility] 14:52 to 14:53 Lab entry only - Encounter for long-term (current) use of anticoagulants ( V58.61 | Z79.01), Encounter for long-term (current) use of anticoagulants ( V58.61 | Z79.01) On 29-Nov-2014 [facility] 12:31 to 15:09 Medication Entry - Diabetes mellitus (250.00 | E11.9) On 12-Nov-2014 [facility] 11:46 to 11:53 Medication Entry - Cellulitis, leg (682.6 | L03.119) On 11-Nov-2014 [facility] 09:48 to 10:00 Office Visit - [...] "Transition into care": He feels things are improved.[facility] Historical Summary On 27-Oct-2014 [facility] 15:03 to 15:08 Lab entry only - Fibrillation, atrial (427.31), Encounter for long-term ( current) use of anticoagulants (V58.61 | Z79.01) On 18-Oct-2014 [facility] 17:08 to 17:09 Medication Entry - Gout (274.9 | M10.9) On 12-Oct-2014 [facility] 16:17 to 16:22 Lab entry only - Encounter for long-term (current) use of anticoagulants ( V58.61 | Z79.01) On 21-Sep-2014 [facility] 15:31 to 15:33 Radiology Visit - Carotid stenosis (433.10 | I65.29) On 14-Sep-2014 [facility] 09:33 to 09:36 Lab entry only - Encounter for long-term (current) use of anticoagulants ( V58.61 | Z79.01) On 24-Aug-2014 [facility] 16:31 to 16:34 Office Visit - Health education (V65.40 | Z71.9), Prevnar (PCV13)FOR MEDICARE USE ONLY Pneumovax injection (V03.82) [id number], Encounter for long-term ( current) use of [...] lifeline screening. He mentions the "discoloration" of ankles.[facility] Historical Summary On 11-Aug-2014 [facility] 16:16 to 16:19 Lab entry only - Fibrillation, atrial (427.31), Encounter for long-term ( current) use of anticoagulants (V58.61 | Z79.01) On 06-Aug-2014 [facility] 16:41 to 16:43 Medication Entry - Benign essential hypertension (401.1 | I10) On 21-Jun-2014 [facility] 11:12 to 11:14 Lab entry only - Encounter for long-term (current) use of anticoagulants ( V58.61 | Z79.01) On 03-Jun-2014 [facility] 16:13 to 16:15 Lab entry only - Encounter for long-term (current) use of anticoagulants ( V58.61 | Z79.01) On [facility] 13:22 to 13:23 Lab entry only - Elevated PSA (790.93), Encounter for long-term (current) use of anticoagulants (V58.61 | Z79.01) On [facility] 14:27 to 14:28 Office Visit - [...] thing in the morning and on stairs. [facility] Historical Summary On 28-Dec-2013 [facility] 12:26 to 12:29 Medication Entry - Encounter for long-term (current) use of anticoagulants ( V58.61 | Z79.01), Diabetes mellitus (250.00 | E11.9), Fibrillation, atrial ( 427.31) On 03-Nov-2013 [facility] 09:01 to 11:53 Medication Entry - Fibrillation, atrial (427.31), Diabetes mellitus (250.00 | E11.9) On 30-Oct-2013 [facility] 15:55 to 16:00 Lab entry only - Encounter for long-term (current) use of anticoagulants ( V58.61 | Z79.01) On 27-Oct-2013 [facility] 17:57 to 17:59 Office Visit - [...] M.D. after being in the hospital at [facility] on 10/16/13 & discharged on 10/17/13 dx jasmeet diaz, inr was done prior to visit.) . Note for "Transition into care": He passed a kidney stone a week ago.[facility] Historical Summary On 23-Oct-2013 [facility] 14:42 to 14:45 Lab entry only - Encounter for long-term (current) use of anticoagulants ( V58.61 | Z79.01) On 20-Oct-2013 [facility] 16:31 to 16:33 Lab entry only - Encounter for long-term (current) use of anticoagulants ( V58.61 | Z79.01) On 16-Sep-2013 [facility] 10:14 to 10:15 Lab entry only - Elevated PSA (790.93) On 15-Sep-2013 [facility] 11:11 to 11:12 Lab entry only - Encounter for long-term (current) use of anticoagulants ( V58.61 | Z79.01) On 07-Aug-2013 [facility] 14:32 to 14:33 Lab entry only - Benign essential hypertension (401.1 | I10), Diabetes mellitus (250.00 | E11.9) On 07-Aug-2013 [facility] 11:18 to 11:19 Lab entry only - Encounter for long-term (current) use of anticoagulants ( V58.61 | Z79.01) On 01-May-2013 [facility] 10:33 to 10:38 Office Visit - [...] He did miss some meds while he traveled.[facility] Historical Summary On 29-Apr-2013 [facility] 11:46 to 11:49 Lab entry only - Encounter for long-term (current) use of anticoagulants ( V58.61 | Z79.01) On [facility] 16:39 to 16:42 Lab entry only - Encounter for long-term (current) use of anticoagulants ( V58.61 | Z79.01) On [facility] 19:40 to 19:42 Lab entry only - Elevated PSA (790.93) On [facility] 12:03 to 12:07 Office Visit - [...] for "Cough": He has not had an antibiotic.[facility] Lab entry only - Encounter for long-term (current) use of anticoagulants ( V58.61 | Z79.01) On 16-Dec-2012 [facility] 18:21 to 18:23 Lab entry only - Encounter for long-term (current) use of anticoagulants ( V58.61 | Z79.01) On 27-Nov-2012 [facility] 16:52 to 16:53 Lab entry only - Encounter for long-term (current) use of anticoagulants ( V58.61) On 26-Nov-2012 [facility] 15:04 to 15:05 Office Visit - [...] first thing in the morning and on stairs.[facility] Historical Summary On 29-Oct-2012 [facility] 16:15 to 16:17 Lab entry only - Encounter for long-term (current) use of anticoagulants ( V58.61) On 15-Oct-2012 [facility] 09:51 to 09:57 Lab entry only - Encounter for long-term (current) use of anticoagulants ( V58.61), Elevated PSA (790.93) On 14-Oct-2012 [facility] 10:25 to 10:26 Lab entry only - Encounter for long-term (current) use of anticoagulants ( V58.61) On 12-Sep-2012 [facility] 13:44 to 13:45 Medication Entry - Edema (782.3), Fibrillation, atrial (427.31) On 20-Aug-2012 [facility] 11:10 to 11:12 Medication Entry - Fibrillation, atrial (427.31), Edema (782.3) On 19-Aug-2012 [facility] 17:29 to 18:11 Medication Entry - Encounter for long-term (current) use of anticoagulants ( V58.61), Fibrillation, atrial (427.31), Diabetes mellitus (250.00) On 2011 [facility] 17:44 to 17:53 Office Visit - 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), Inflamed seborrheic keratosis (702.11), Hyperglycemia (790.29), Encounter for long-term (current) use of anticoagulants (V58.61), Fibrillation, atrial (427.31) On 01-Aug-2012 Encounter Reason: Follow up for chronic condition - The patient feels well with minor complaints (here today for a 3 month follow up with Dr. Romero ) .[facility] 09:34 to 10:39 Medication Entry - Encounter for long-term (current) use of anticoagulants ( V58.61) On 31-Jul-2012 [facility] 18:21 to 18:22 Historical Summary On 31-Jul-2012 [facility] 11:40 to 11:42 Lab entry only - Encounter for long-term (current) use of anticoagulants ( V58.61) On 23-Jun-2012 [facility] 18:47 to 18:52 Lab entry only - Elevated PSA (790.93), Encounter for long-term (current) use of anticoagulants (V58.61) On 23-Jun-2012 [facility] 15:48 to 15:53 Office Visit - Adjustment disorder with depressed mood (309.0), Encounter for long-term (current) use of anticoagulants (V58.61), Elevated PSA (790.93) On Encounter Reason: Follow up for chronic condition - The patient feels well with minor complaints (here for a 6 week follow up visit do to a new medication but did not start the medication).[facility] 11:19 to 13: 39 Historical Summary On 30-Apr-2012 [facility] 11:50 to 11:52 Lab entry only - Encounter for long-term (current) use of anticoagulants ( V58.61) On 28-Apr-2012 [facility] 17:23 to 17:26 Lab entry only - Elevated PSA (790.93), Encounter for long-term (current) use of anticoagulants (V58.61) On 28-Apr-2012 [facility] 14:19 to 14:22 Office Visit - [...] , had lab done prior to appt today).[facility] Lab entry only - Edema (782.3), Hyperglycemia (790.29), Encounter for long- term (current) use of anticoagulants (V58.61) On [facility] 11:06 to 11:14 Lab entry only - Elevated PSA (790.93), Fibrillation, atrial (427.31), Edema ( 782.3) On [facility] 09:02 to 09:05 Lab entry only - Encounter for long-term (current) use of anticoagulants ( V58.61) On [facility] 16:44 to 16:45 Medication Entry On 26-Oct-2011 [facility] 13:30 to 13:32 Lab entry only - Elevated PSA (790.93) On 23-Oct-2011 [facility] 11:01 to 11:04 Lab entry only - Encounter for long-term (current) use of anticoagulants ( V58.61), Low testosterone (257.2) On 17-Oct-2011 [facility] 10:15 to 10:17 Medication Entry - Fibrillation, atrial (427.31) On 04-Oct-2011 [facility] 09:26 to 09:38 Medication Entry - Fibrillation, atrial (427.31), Edema (782.3), Encounter for long-term (current) use of anticoagulants (V58.61), Benign prostatic hypertrophy without lower urinary tract symptoms (LUTS) (600.00) On 02-Oct-2011 [facility] 18:56 to 19:02 Medication Entry - Encounter for long-term (current) use of anticoagulants ( V58.61), Fibrillation, atrial (427.31), Edema (782.3) On 26-Sep-2011 [facility] 11:06 to 11:11 Medication Entry - Fibrillation, atrial (427.31), Encounter for long-term ( current) use of anticoagulants (V58.61) On 24-Sep-2011 [facility] 10:41 to 10:49 Lab entry only - Low testosterone (257.2) On 10-Aug-2011 [facility] 13:03 to 13:05 Lab entry only - Hyperglycemia (790.29), Encounter for long-term (current) use of anticoagulants (V58.61), Fibrillation, atrial (427.31) On 08-Aug-2011 [facility] 13:27 to 13:29 Office Visit - [...] he 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." [facility] Historical Summary On 06-Aug-2011 [facility] 12:22 to 12:24 Medication Entry - Fibrillation, atrial (427.31) On 05-Jun-2011 [facility] 08:54 to 08:59 Lab entry only - Encounter for long-term (current) use of anticoagulants ( V58.61) On 15-May-2011 [facility] 18:48 to 18:50 Office Visit - [...] up is diabetes, hypertension, cardiovascular disorder and other.[facility] Medication Entry - Benign prostatic hypertrophy without lower urinary tract symptoms (LUTS) (600.00) On 19-Apr-2011 [facility] 08:49 to 08:51 Lab entry only - Benign prostatic hypertrophy without lower urinary tract symptoms (LUTS) (600.00) On 10-Apr-2011 [facility] 15:15 to 15:19 Office Visit - [...] seeing dr. boswell the middle of apr.). [facility] Historical Summary On [facility] 16:05 to 16:18 Lab entry only - Encounter for long-term (current) use of anticoagulants ( V58.61) On [facility] 17:34 to 17:36 Lab entry only - Encounter for long-term (current) use of anticoagulants ( V58.61), Elevated PSA (790.93) On [facility] 09:42 to 09:43 Lab entry only - Encounter for long-term (current) use of anticoagulants ( V58.61) On 24-Nov-2010 [facility] 08:55 to 08:57 Lab entry only - Encounter for long-term (current) use of anticoagulants ( V58.61) On 20-Oct-2010 [facility] 14:42 to 14:46 Historical Summary - Encounter for long-term (current) use of anticoagulants ( V58.61) On 13-Sep-2010 [facility] 10:53 to 10:59 Historical Summary 12-Sep-2010 to 13-Sep-2010 [facility] Lab entry only - Encounter for long-term (current) use of anticoagulants ( V58.61) On 14-Aug-2010 [facility] 17:44 to 17:49 Historical Summary - Elevated PSA (790.93) 09-Aug-2010 to 15-Aug-2010 [facility] Lab entry only - Encounter for long-term (current) use of anticoagulants ( V58.61) 27-Jun-2010 to 28-Jun-2010 [facility] Lab entry only - Encounter for long-term (current) use of anticoagulants ( V58.61) On 26-Jun-2010 [facility] 16:21 to 22:23 Insurance Vijay Yuan; a guarantorMedicare [employer] [facility]
--- OUTSIDE RECORDS SUMMARY | 2017-10-22 18:05 | External Medical Summary | Continuity of Care Document ---
:1940 Author Organization [facility] Allergies Active Description Code Type Severity Reaction Onset Reported/ Identified Relationship Clinical to Patient Status Yes penicillin NKMA N/A N/A 01/04/2016 Medications Medication Packaging Start Date Stop Date Route Dosage Sig 1 tabs 06/24/2017 06/19/2018 Oral 250 mcg digoxin(digoxin 250 250 mcg (0.25 mg) mcg=1 oral tablet) tabs, Oral, Daily, for 90 days, 90 tabs, 3 Refill(s) 1 tabs 06/24/2017 03/21/2018 Oral 10 mg lisinopril(lisino 10 mg=1 pril 10 mg oral tabs, tablet) Oral, Daily, for 90 days, 90 tabs, 2 Refill(s) Problems Date Dx Attending Type Code Diagnosis Diagnosed By Coded 01/04/2016 Blayne Blake Final I10 Essential (primary) hypertension 01/04/2016 Blayne Blake Final I48.2 Chronic atrial fibrillation 01/04/2016 Blayne Blake Final I48.91 Unspecified atrial fibrillation 01/04/2016 Blayne Blake Final M17.4 Other bilateral secondary osteoarthritis of knee 01/04/2016 Blayne Blake Final M17.9 Osteoarthritis of knee, unspecified 01/04/2016 Blayne Blake Final H00.11 Chalazion right upper eyelid 01/04/2016 Blayne Blake Final H02.829 Cysts of unspecified eye, unspecified eyelid 01/04/2016 Blayne Blake Final R73.09 Other abnormal glucose 02/01/2016 Rojelio Final B02.9 Zoster without Jasvir A complications 02/07/2016 Blayne Blake Final B02.9 Zoster without complications 02/07/2016 Blayne Blake Final H00.11 Chalazion right upper eyelid 02/07/2016 Blayne Blake Final H00.13 Chalazion right eye, unspecified eyelid 03/08/2016 Blayne Blake Final L72.0 Epidermal cyst 03/08/2016 Blayne Blake Final Z79.01 correction (current) use of anticoagulants 09/18/2016 Lou, Blayne Final E11.9 Type 2 diabetes mellitus without complications 09/18/2016 Tecjasmeet, Blayne Final I10 Essential (primary) hypertension 09/18/2016 Tecjasmeet, Blayne Final I48.2 Chronic atrial fibrillation 01/31/2017 Tecjasmeet, Blayne Final L82.1 Other seborrheic keratosis 01/31/2017 Blayne Blake Final Z51.81 Encounter for therapeutic drug level monitoring 01/31/2017 Blayne Blake Final L57.0 Actinic keratosis 01/31/2017 TecBlayne alamo Final N40.0 Benign prostatic hyperplasia without lower urinary tract symptoms 05/01/2017 Ruperto Mcintyre Final I10 Essential (primary) hypertension 05/01/2017 Ruperto Mcintyre Final G47.33 Obstructive sleep apnea (adult) (pediatric) 05/01/2017 Ruperto Mcintyre Final I48.2 Chronic atrial fibrillation 08/01/2017 Final G47.33 Obstructive sleep apnea (adult) (pediatric) Procedures Code Description [place] [address] Office or 01/04/2016 other outpatient visit for the evaluation and management of a new patient, which requires these 3 wu components: A detailed history; A detailed examination; Medical decision making of low c 33871 Office or 01/31/2016 other outpatient visit for the evaluation and management of an established patient, which requires at least 2 of these 3 wu components: An expanded problem focused history; An expanded prob 98026 Office or 02/07/2016 other outpatient visit for the evaluation and management of an established patient, which requires at least 2 of these 3 wu components: An expanded problem focused history; An expanded prob 72201 Excision, 03/08/2016 other benign lesion including margins, except skin tag (unless listed elsewhere), face, ears, eyelids, nose, lips, mucous membrane; excised diameter 0.5 cm or less 67099 Immunization 03/08/2016 administration (includes percutaneous, intradermal, subcutaneous, or intramuscular injections); 1 vaccine (single or combination vaccine/toxoid).. 00075 Zoster 03/08/2016 (shingles) vaccine (HZV), live, for subcutaneous injection 94943 Office or 03/08/2016 other outpatient visit for the evaluation and management of an established patient, which requires at least 2 of these 3 wu components: An expanded problem focused history; An expanded prob 70206 Immunization 09/18/2016 administration (includes percutaneous, intradermal, subcutaneous, or intramuscular injections); 1 vaccine (single or combination vaccine/toxoid).. 67868 Influenza 09/18/2016 virus vaccine, trivalent, split virus, preservativ 62999 Office or 09/18/2016 other outpatient visit for the evaluation and management of an established patient, which requires at least 2 of these 3 wu components: A detailed history; A detailed examination; Medical d G0008 ADMINISTRATION 09/18/2016 OF INFLUENZA VIRUS VACCINE 40404 Office or 01/31/2017 other outpatient visit for the evaluation and management of an established patient, which requires at least 2 of these 3 wu components: A detailed history; A detailed examination; Medical d 51377 Office or 05/01/2017 other outpatient visit for the evaluation and management of a new patient, which requires these 3 wu components: A detailed history; A detailed examination; Medical decision making of [place] c 47767 Office or 08/01/2017 other outpatient visit for the evaluation and management of an established patient, which requires at least 2 of these 3 wu components: An expanded problem focused history; An expanded prob Results Test Result Range PSA - 03/08/16 10:17 PSA 7.9 ng/mL 0.0-6.5 Comprehensive Metabolic Panel (CMP) - 09/18/16 15:15 Albumin 4.1 g/dL 3.4-4.8 Alkaline Phosphatase 68 U/L 40-150 ALT (SGPT) 14 U/L 0-55 Anion Gap 7 NA 3-20 AST (SGOT) 16 U/L 5-34 Bilirubin Total 0.4 mg/dL 0.2-1.2 BUN 31 mg/dL 8-26 Calcium 9.0 mg/dL 8.9-10.5 Chloride 106 mEq/L 99-111 CO2 29 mEq/L 23-31 Creatinine 1.06 mg/dL 0.72-1.25 Globulin 2.1 g/dL 1.8-4.0 Glucose 96 mg/dL 70-99 Potassium 4.4 mEq/L 3.5-5.2 Protein 6.2 g/dL 6.0-7.6 Sodium 142 mEq/L 135-144 eGFR - 09/18/16 15:15 eGFR >60 mL/min >60 Uric Acid - 09/18/16 15:15 Uric Acid 8.0 mg/dL 3.5-7.2 TSH with Reflex Free T4 - 09/18/16 15:15 TSH with Reflex Free T4 1.44 uIU/mL 0.35-4.94 CBC With Platelet and Differential - 09/18/16 15:15 Absolute Basophils 0.02 10*3/uL 0.00-0.20 Absolute Eosinophils 0.17 10*3/uL 0.00-0.50 Absolute Lymphocytes 1.78 10*3/uL 0.80-3.30 Absolute Monocytes 0.61 10*3/uL 0.30-1.00 Absolute Neutrophils 5.44 10*3/uL 1.90-7.00 Basophils 0 % 0-2 Eosinophils 2 % 0-4 HCT 41.5 % 42.0-52.0 HGB 13.5 g/dL 14.0-18.0 Immature Granulocytes 0.1 % 0.0-1.0 Lymphocytes 22 % 20-46 MCH 30.5 pg 27.0-32.0 MCHC 32.5 g/dL 32.0-36.0 MCV 93.9 fL 82.0-99.0 Monocytes 8 % 4-11 MPV 10.4 fL 8.8-14.8 Neutrophils 68 % 51-75 Platelet Count 230 K/uL 150-400 RBC 4.42 10*6/uL 4.60-6.20 RDW 13.7 % 11.5-14.5 WBC 8.0 K/uL 4.8-10.8 Hemoglobin A1C - 09/18/16 15:15 Hemoglobin A1C 6.0 % 4.1-5.6 Estimated Average Glucose - 09/18/16 15:15 Estimated Average Glucose 125.5 mg/dL Protime (INR) - 04/08/17 09:48 INR 1.4 NA 0.8-1.2 Prothrombin Time Venous seconds Comprehensive Metabolic Panel (CMP) - 04/08/17 09:48 Albumin 4.1 g/dL 3.4-4.8 Alkaline Phosphatase 74 U/L 40-150 ALT (SGPT) 17 U/L 0-55 Anion Gap 10 mEq/L 3-20 AST (SGOT) 18 U/L 5-34 Bilirubin Total 0.6 mg/dL 0.2-1.2 BUN 24 mg/dL 8-26 Calcium 9.0 mg/dL 8.4-10.2 Chloride 108 mEq/L 99-111 CO2 25 mEq/L 23-31 Creatinine 1.18 mg/dL 0.72-1.25 Globulin 2.4 g/dL 1.8-4.0 Glucose 106 mg/dL 70-99 Potassium 4.4 mEq/L 3.5-5.2 Protein 6.5 g/dL 6.0-7.6 Sodium 143 mEq/L 135-144 Lipid Panel - 04/08/17 09:48 Cardiac Risk 5.2 0.0-5.7 Cholesterol 160 mg/dL 0-199 HDL Cholesterol 31 mg/dL 40-84 LDL Cholesterol 107 mg/dL 0-130 Triglycerides 109 mg/dL 0-149 VLDL Cholesterol 22 mg/dL 0-28 eGFR - 04/08/17 09:48 eGFR >60 mL/min >60 PSA - 04/08/17 09:48 PSA 8.2 ng/mL 0.0-6.5 Hemoglobin A1C - 04/08/17 09:48 Hemoglobin A1C 6.2 % 4.1-5.6 Estimated Average Glucose - 04/08/17 09:48 Estimated Average Glucose 131.2 mg/dL Protime (INR) - 04/15/17 10:48 INR 1.3 NA 0.8-1.2 Prothrombin Time Venous seconds Protime (INR) - 04/26/17 15:18 INR 4.3 NA 0.8-1.2 Prothrombin Time Venous seconds Protime (INR) - 04/29/17 09:42 INR 2.5 NA 0.8-1.2 Prothrombin Time Venous seconds Protime (INR) - 05/07/17 09:43 INR 2.5 NA 0.8-1.2 Prothrombin Time Venous seconds PSA - 05/07/17 09:43 PSA 6.6 ng/mL 0.0-6.5 Protime (INR) - 05/20/17 12:00 INR 2.8 NA 0.8-1.2 Prothrombin Time Venous seconds Protime (INR) - 06/04/17 13:40 INR 2.0 NA 0.8-1.2 Prothrombin Time Venous seconds Encounters ACCT No. Visit Discharge Status Pt. Type Provider Facility Loc./Unit Complaint Date/Time [id number] 08/01/2017 08/01/2017 DIS Outpatien [facility] 3 MO CPAP 00 09:48:00 23:59:00 oneal Cisneros CP [facility] COMPLIANCE ON NEW PRESSURE [id number] 06/04/2017 06/04/2017 DIS Outpatien Teck, [facility] New lab 37 13:24:00 23:59:00 t Blayne Cisneros Lab Clinic [id number] 05/20/2017 05/20/2017 DIS Outpatien Teck, Via [facility] New lab 74 11:29:00 23:59:00 t Blayne Ayalai [facility] [id number] 05/07/2017 05/07/2017 DIS Outpatien Teck, [facility] New lab 45 09:26:00 23:59:00 t Blayne Cisneros Lab Clinic [id number] 05/01/2017 05/01/2017 DIS Outpatien Mcintyre, [facility] PRESSURE 52 14:06:00 23:59:00 oneal Cisneros CP CHANGE Clinic [id number] 05/01/2017 05/01/2017 DIS Outpatien Mcintyre, [facility] DR TECK REF 41 12:49:00 23:59:00 oneal Cisneros CP CPAP NEEDS Clinic [facility]ASP FOR [facility] [id number] 04/29/2017 04/29/2017 DIS Outpatien Teck, Via [facility] New lab 80 09:36:00 23:59:00 t Blayne Cisneros Lab Clinic [id number] 04/26/2017 04/26/2017 DIS Outpatien Teck, Via [facility] New LAB 02 15:14:00 23:59:00 t Blayne Ayalai Lab Clinic [id number] 04/15/2017 04/15/2017 DIS Outpatien Teck, Via [facility] New lab 94 10:35:00 23:59:00 t Blayne Cisneros Lab Clinic [id number] 04/08/2017 04/08/2017 DIS Outpatien Teck, Via [facility] New lab 97 09:40:00 23:59:00 t Blayne Cisneros Lab Clinic [id number] 01/31/2017 01/31/2017 DIS Outpatien Teck, [facility] New FM LOOK AT 80 09:12:00 23:59:00 oneal Cisneros GROWTH ON Clinic STOMACH [id number] 09/24/2016 09/24/2016 DIS Outpatien Teck, Via [facility] New it application administrator 77 10:53:00 23:59:00 oneal Cisneros education Clinic [id number] 09/18/2016 09/18/2016 DIS Outpatien Teck, Via [facility] MED CK 36 13:42:00 23:59:00 onela Cisneros [facility] [id number] 03/08/2016 03/08/2016 DIS Outpatien Teck, Via [facility] FM 1 month 55 09:05:00 23:59:00 oneal Cisneros right [facility] eyelid cyst removal shingles shot [id number] 02/07/2016 02/07/2016 DIS Outpatien Teck, Via [facility] 1 month 44 08:14:00 23:59:00 oneal Cisneros recheck Clinic fatigue [id number] 01/31/2016 01/31/2016 DIS Outpatien Serrato, Via [facility] SHOULDER 89 10:22:00 23:59:00 oneal Cisneros PAIN RIB A Clinic PAIN [id number] 01/04/2016 01/04/2016 DIS Outpatien Teck, Via [facility] New FM Establish 24 09:18:00 23:59:00 oneal Cisneros apt. Clinic [id number] 06/25/2017 Document 1930 05:19:30 Registrat ion
[2017-10-22] MEDS ORDERED: ACETAMINOPHEN 500 MG TABLET PO PRN (18:46)
[2017-10-22] MEDS: NS 1,000 ML IV SCH (21:00)
--- NOTE | 2017-10-22 21:45 | History & Physical Report ---
History of Present Illness Date: 10/22/17 Chief complaint: cough, weakness HPI: 76 yo M presented to the ED with reports of non productive cough and increased weakness since yesterday. Family reports pt is normally alert, interactive, and ambulates without difficulty at home with his . He is currently confused , unable to appropriately answer questions, and family must assist for pt to stand from sitting or ambulate at all. reports pt saw PCP about a month ago for nasal congestion and was placed on an antibiotic without relief. Unknown fever. Denial of N/V/D. Patient was found to be flu positive and was admitted for further care. Review of Systems All systems PM: 10-point ROS was reviewed, no additional remarkable complaints except Past Medical History Patient Stated Medical History Hypertension Yes Sleep Apnea Yes Diabetes Mellitus Type 2 Yes Gastroesophageal Reflux Yes Disease Hx Benign Prostatic enlarged prostate Hyperplasia Osteoarthritis Yes Family History Updates: non contributory - Social History Smoking status: Never smoker Medications Home Medications Medication Instructions Recorded Confirmed Type Allopurinol [Zyloprim] 150 mg PO DAILY 10/22/17 10/22/17 History Digoxin [Digitek] 250 mcg PO DAILY 10/22/17 10/22/17 History Lisinopril [Prinivil] 10 mg PO DAILY 10/22/17 10/22/17 History Metformin [Glucophage] 500 mg PO WB 10/22/17 10/22/17 History Warfarin [Coumadin] 1 mg PO QTUTHSASU 10/22/17 10/22/17 History Warfarin [Coumadin] 6 mg PO MOWEFR 10/22/17 10/22/17 History dilTIAZem HCl [Cartia Xt] 240 mg PO DAILY 10/22/17 10/22/17 History Allergies Allergy/AdvReac Type Severity Reaction Status Date / Time No Known Drug Allergies Allergy Mild Verified 09/23/16 16:01 Exam Vital Signs: Temperature 99.8 F 10/22/17 20:07 Pulse Rate 80 10/22/17 20:07 Respiratory Rate 20 10/22/17 20:07 Blood Pressure 144/89 H 10/22/17 20:07 Pulse Oximetry 93 10/22/17 20:07 Height/Weight/BMI: Height 1.88 m Weight 101 kg Body Mass Index 28.5 - Constitutional Present: no acute distress - Routine Respiratory Exam Present: rhonchi - Routine Cardiovascular Exam Present: RRR. Absent: murmur - Routine Abdominal Exam Present: soft, normoactive bowel sounds, non distended. Absent: tenderness - Routine Extremities Exam Present: normal capillary refill - Routine Skin Exam Present: dry, warm - Routine Neurological Exam Present: alert, oriented X3, CN II-XII intact - Routine Psychiatric Exam Present: normal affect Results - Labs CBC & Chem 7: 10/22/17 17:47 10/22/17 17:47 Assessment and Plan (1) Influenza A Current visit: Yes Status: Acute (2) Weakness Current visit: Yes Status: Acute Assessment and Plan: patient admitted started on supportive care, IVF and tamiflu. Patient did not get a flu shot this year. Start aggressive pulm hygiene and duonebs. DVT Prophylaxis: SCD's Resuscitation Status: Full Code - Physician Narrative Narrative: Date: 10/22/17 Time: 2141 Hospital Course Summary Disclaimer: The visit summary below is not to be considered part of the above Progress Note.
[2017-10-23] MEDS: ALBUTEROL/IPRATROPIUM 2.5mg-0.5mg/3ml NEB AEROSOL SCH ×4 (07:10→20:11)
[2017-10-23] MEDS: NS 1,000 ML IV SCH ×4 (07:42→22:45)
--- NOTE | 2017-10-23 08:10 | XRay Report ---
Indication: cough AMS PROCEDURE: XR chest 1V: Encounter: Initial Comparison: None FINDINGS: The lungs are clear. There is no abnormal airspace opacity, pleural effusion or pneumothorax identified. The cardiac silhouette is mildly enlarged. The pulmonary vasculature and mediastinum are within normal limits. No significant skeletal abnormality is seen. IMPRESSION: No pneumonia. Enlargement of the cardiac silhouette could be due to cardiomegaly or pericardial effusion. .
[2017-10-23] MEDS ORDERED: GLUCOSE ORAL GEL 40% 37.5gm PO PRN (13:09)
[2017-10-23] MEDS ORDERED: INSULIN ASPART 100unit/ml INJECTION SQ PRN (13:09)
[2017-10-23] MEDS ORDERED: WARFARIN 6 MG TABLET PO SCH (13:15)
[2017-10-23 14:28] VITALS: BMI 28.3
[2017-10-23] MEDS ORDERED: WARFARIN - PHARMACY CONSULT MC ONE (14:30)
[2017-10-23] MEDS ORDERED: WARFARIN 6 MG TABLET PO ONE (15:18)
[2017-10-23] MEDS: DIGOXIN 250 MCG TABLET PO SCH (16:20)
[2017-10-23] MEDS: ALLOPURINOL 300 MG TABLET PO SCH (16:20)
--- NOTE | 2017-10-23 17:06 | History & Physical Report ---
History of Present Illness Date: 10/23/17 HPI: Patient is a 76 year old male admitted from ED due to Influenza A, weakness and confusion. reports confusion is improved today. Patient states he is still feeling weak and ill. He reports decreased PO intake and still doesn't feel like eating or drinking. He was started on IVF and Tamiflu. Review of Systems - Constitutional Constitutional: Present: anorexia, headache(s), weakness - EENMT Eyes: Absent: blurry vision, change in vision Balance: Absent: vertigo Nose: Absent: pain Mouth/Throat: Absent: changes in swallowing, painful swallowing - Cardiovascular Cardiovascular: Absent: chest pain, dyspnea on exertion Vascular: Absent: pedal edema - Respiratory Respiratory: Present: cough, dyspnea - Gastrointestinal Gastrointestinal: Absent: abdominal pain, change in bowel habits - Musculoskeletal Musculoskeletal: Present: muscle weakness, myalgias - Neurological Neurological: Present: confusion, weakness. Absent: frequent falls Neurological Comments: now resolved Past Medical History Patient Stated Medical History Hypertension Yes Sleep Apnea Yes Diabetes Mellitus Type 2 Yes Gastroesophageal Reflux Yes Disease Hx Benign Prostatic enlarged prostate Hyperplasia Osteoarthritis Yes Family History Updates: Non contributory - Social History Smoking status: Never smoker Substance use type: does not use Housing: house Household members: spouse Current occupational status: retired Current residence: Apartment/Private Home Medications Home Medications Medication Instructions Recorded Confirmed Type Allopurinol [Zyloprim] 150 mg PO DAILY 10/22/17 10/22/17 History Digoxin [Digitek] 250 mcg PO DAILY 10/22/17 10/22/17 History Lisinopril [Prinivil] 10 mg PO DAILY 10/22/17 10/22/17 History Metformin [Glucophage] 500 mg PO WB 10/22/17 10/22/17 History Warfarin [Coumadin] 1 mg PO QTUTHSASU 10/22/17 10/22/17 History Warfarin [Coumadin] 6 mg PO MOWEFR 10/22/17 10/22/17 History dilTIAZem HCl [Cartia Xt] 240 mg PO DAILY 10/22/17 10/22/17 History Terazosin [Hytrin] 5 mg PO HS 10/23/17 10/23/17 History Allergies Allergy/AdvReac Type Severity Reaction Status Date / Time No Known Drug Allergies Allergy Mild Verified 09/23/16 16:01 Exam Vital Signs: Temperature 97.8 F 10/23/17 15:00 Pulse Rate 89 10/23/17 16:20 Respiratory Rate 18 10/23/17 16:30 Blood Pressure 147/85 H 10/23/17 15:00 Pulse Oximetry 95 10/23/17 15:00 Height/Weight/BMI: Height 6 ft 2 in Weight 100 kg Body Mass Index 28.3 - Constitutional Present: no acute distress - Routine HEENT Exam Head: Present: normocephalic, atraumatic Eye: Present: EOMI, conjunctivae pink - Routine Neck Exam Present: supple - Routine Respiratory Exam Present: dyspnea, decreased breath sounds - Routine Cardiovascular Exam Present: RRR, no murmur - Routine Abdominal Exam Present: soft, normoactive bowel sounds. Absent: tenderness - Routine Extremities Exam Present: no edema. Absent: cyanosis, clubbing - Routine Skin Exam Present: intact, warm - Routine Neurological Exam Present: alert, oriented X3, CN II-XII intact - Routine Psychiatric Exam Present: normal affect, good insight Results - Labs CBC & Chem 7: 10/23/17 04:13 10/23/17 04:13 Assessment and Plan (1) Influenza A Current visit: Yes Status: Acute (2) Weakness Current visit: Yes Status: Acute Assessment and Plan: Assessment Influenza A Dehydration Decreased PO intake Confusion-resolved A fib-chronic DM2 Generalized weakness Plan Continue Tamiflu Continue IVF until taking adequate PO Encourage PO intake Trend labs Continue home medications: Cardizem/Warfarin Hold Metformin, diabetic diet, insulin SS PT/OT consult Continued admission pending improvement in weakness and PO intake DVT Prophylaxis: Coumadin Resuscitation Status: Full Code - Physician Narrative Narrative: Date: 10/23/17 Time: 1703 Hospital Course Summary Disclaimer: The visit summary below is not to be considered part of the above Progress Note.
[2017-10-24] MEDS: ALBUTEROL/IPRATROPIUM 2.5mg-0.5mg/3ml NEB AEROSOL SCH ×2 (07:40→11:32)
[2017-10-24 08:01] VITALS: BP 147/85; TEMP 97.7
--- NOTE | 2017-10-24 08:10 | Pharmacy Consult ---
Pharmacy Consult-Warfarin - Laboratory Information 10/23/17 10/24/17 14:45 04:48 INR 1.60 H 1.46 H 76yo M admitted with Influenza A, weakness, confusion. Hx of warfarin therapy for DVT prophylaxis. Target INR = 2-3 : will plan for low 2's Home dose of warfarin reported as 6mg on Mo, We, Fr and 1mg on Tian, , Th, Sa. Drug interactions with Diltiazem and Allopurinol noted. These can increase the INR. INR presently low, will repeat the warfarin 6mg dose today. Thank you.
[2017-10-24] MEDS: ALLOPURINOL 300 MG TABLET PO SCH (08:15)
[2017-10-24 08:16] VITALS: PULSE 68
[2017-10-24] MEDS: DIGOXIN 250 MCG TABLET PO SCH (08:16)
[2017-10-24] MEDS: NS 1,000 ML IV SCH (09:12)
[2017-10-24 11:36] VITALS: RESP 18; O2SAT 97
[2017-10-24] MEDS ORDERED: WARFARIN 1 MG TABLET PO SCH (12:00)
[2017-10-24] MEDS ORDERED: WARFARIN 6 MG TABLET PO SCH (12:00)
--- NOTE | 2017-10-24 12:30 | Discharge Summary ---
Discharge Information Date of admission: 10/22/17 19:07 Anticipated date of discharge: 10/24/17 Attending Physician: Mary Can MD Primary care physician: Blayne Blake DO Consults: 10/23/17 13:09 Dietary Consult [CONS] Routine Comment: Reason For Exam: - Discharge Diagnosis (1) Influenza A Status: Acute (2) Weakness Status: Acute Influenza A Confusion Generalized weakness Dehydration - Laboratory Labs: 10/24/17 04:48 10/24/17 04:48 Lab Results 10/22/17 10/22/17 10/22/17 Range/Units 16:48 17:47 17:47 WBC 7.6 (4.5-11.0) T/MM3 RBC 4.92 (4.50-5.90) M/MM3 Hgb 14.7 (13.5-17.5) GM/DL Hct 45.7 (41-53) % MCV 92.9 (80-100) UM3 MCH 29.9 (26-34) UUG MCHC 32.2 (31-37) GM/DL RDW Std Deviation 46.7 (36.9-50.2) FL Plt Count 226 (130-400) T/MM3 MPV 9.7 (9.4-12.4) UM3 Immature Gran % (Auto) 0.3 (0.0-0.5) % Neut % (Auto) 79.1 H (33-66) % Lymph % (Auto) 11.8 L (23-45) % Daniels % (Auto) 7.9 (0-9.0) % Eos % (Auto) 0.8 (0-4) % Baso % (Auto) 0.1 (0-2) % Neut # (Auto) 6.0 (1.8-7.7) T/MM3 Lymph # (Auto) 0.9 L (1-4.8) T/MM3 Daniels # (Auto) 0.6 (0-0.8) T/MM3 Eos # (Auto) 0.1 (0-0.5) T/MM3 Baso # (Auto) 0.0 (0-0.2) T/MM3 Abs Immat Gran (auto) 0.02 (0.00-0.03) T/MM3 INR (0.99-1.21) Turbidity < 20 (0-20) Sodium 145 H (134-144) MEQ/L Potassium 4.6 (3.6-5) MEQ/L Chloride 102 (98-107) MEQ/L Carbon Dioxide 31 H (22-30) MEQ/L Anion Gap 12 (5-15) MEQ/L BUN 22.0 H (9-20) MG/DL Creatinine 1.3 (0.8-1.5) MG/DL GFR Calculation 54 BUN/Creatinine Ratio 17 (6-26) RATIO Glucose 113 H (75-110) MG/DL Glucometer 99 (65-110) mg/dL Calculated Osmolality 283 H (261-280) MOSM/KG Calcium 9.5 (8.4-10.2) MG/DL Total Bilirubin 0.80 (0.20-1.30) MG/DL Icterus Index < 2 (0-7) AST 29 (17-59) U/L ALT 31 (21-72) U/L Alkaline Phosphatase 76 (38-126) U/L Total Protein 7.8 (6.3-8.2) G/DL Albumin 4.6 (3.5-5.0) G/DL Globulin 3.2 (2.4-3.6) G/DL Albumin/Globulin Ratio 1.4 (1.1-2.2) RATIO Specimen Hemolysis < 15 (0-25) Ur Collection Type Urine Color (YELLOW) Urine Clarity Urine pH (5.0-8.0) Ur Specific Isom (1.015-1.025) Urine Protein (NEGATIVE) Urine Glucose (UA) (NEGATIVE) Urine Ketones (NEGATIVE) Urine Occult Blood (NEGATIVE) Urine Nitrate (NEGATIVE) Urine Bilirubin (NEGATIVE) Urine Urobilinogen (NORMAL) EU/DL Ur Leukocyte Esterase (NEGATIVE) Urine RBC (0-3) /HPF Urine WBC (0-5) /HPF Ur Squamous Epith Cells Urine Bacteria (NEGATIVE) Ur Culture Indicated? Digoxin (0.8-2.0) NG/ML Influenza Type A (PCR) (Negative) Influenza Type B (PCR) (Negative) 10/22/17 10/22/17 10/23/17 Range/Units 17:47 17:58 04:13 WBC 6.7 (4.5-11.0) T/MM3 RBC 4.60 (4.50-5.90) M/MM3 Hgb 14.0 (13.5-17.5) GM/DL Hct 42.8 (41-53) % MCV 93.0 (80-100) UM3 MCH 30.4 (26-34) UUG MCHC 32.7 (31-37) GM/DL RDW Std Deviation 46.2 (36.9-50.2) FL Plt Count 199 (130-400) T/MM3 MPV 10.1 (9.4-12.4) UM3 Immature Gran % (Auto) 0.1 (0.0-0.5) % Neut % (Auto) 70.9 H (33-66) % Lymph % (Auto) 14.4 L (23-45) % Daniels % (Auto) 13.6 H (0-9.0) % Eos % (Auto) 0.7 (0-4) % Baso % (Auto) 0.3 (0-2) % Neut # (Auto) 4.7 (1.8-7.7) T/MM3 Lymph # (Auto) 1.0 (1-4.8) T/MM3 Daniels # (Auto) 0.9 H (0-0.8) T/MM3 Eos # (Auto) 0.1 (0-0.5) T/MM3 Baso # (Auto) 0.0 (0-0.2) T/MM3 Abs Immat Gran (auto) 0.01 (0.00-0.03) T/MM3 INR (0.99-1.21) Turbidity (0-20) Sodium (134-144) MEQ/L Potassium (3.6-5) MEQ/L Chloride (98-107) MEQ/L Carbon Dioxide (22-30) MEQ/L Anion Gap (5-15) MEQ/L BUN (9-20) MG/DL Creatinine (0.8-1.5) MG/DL GFR Calculation BUN/Creatinine Ratio (6-26) RATIO Glucose (75-110) MG/DL Glucometer (65-110) mg/dL Calculated Osmolality (261-280) MOSM/KG Calcium (8.4-10.2) MG/DL Total Bilirubin (0.20-1.30) MG/DL Icterus Index (0-7) AST (17-59) U/L ALT (21-72) U/L Alkaline Phosphatase (38-126) U/L Total Protein (6.3-8.2) G/DL Albumin (3.5-5.0) G/DL Globulin (2.4-3.6) G/DL Albumin/Globulin Ratio (1.1-2.2) RATIO Specimen Hemolysis (0-25) Ur Collection Type Urine, cath straight Urine Color Yellow (YELLOW) Urine Clarity Clear Urine pH 5.5 (5.0-8.0) Ur Specific Isom 1.025 (1.015-1.025) Urine Protein Trace A (NEGATIVE) Urine Glucose (UA) Negative (NEGATIVE) Urine Ketones Trace A (NEGATIVE) Urine Occult Blood 1+ A (NEGATIVE) Urine Nitrate Negative (NEGATIVE) Urine Bilirubin 1+ A (NEGATIVE) Urine Urobilinogen 1.0 (NORMAL) EU/DL Ur Leukocyte Esterase Negative (NEGATIVE) Urine RBC 5-10 H (0-3) /HPF Urine WBC None seen (0-5) /HPF Ur Squamous Epith Cells 0-5 Urine Bacteria Trace H (NEGATIVE) Ur Culture Indicated? Cult not indicated Digoxin (0.8-2.0) NG/ML Influenza Type A (PCR) Positive A* (Negative) Influenza Type B (PCR) Negative (Negative) 10/23/17 10/23/17 10/23/17 Range/Units 04:13 14:44 14:45 WBC (4.5-11.0) T/MM3 RBC (4.50-5.90) M/MM3 Hgb (13.5-17.5) GM/DL Hct (41-53) % MCV (80-100) UM3 MCH (26-34) UUG MCHC (31-37) GM/DL RDW Std Deviation (36.9-50.2) FL Plt Count (130-400) T/MM3 MPV (9.4-12.4) UM3 Immature Gran % (Auto) (0.0-0.5) % Neut % (Auto) (33-66) % Lymph % (Auto) (23-45) % Daniels % (Auto) (0-9.0) % Eos % (Auto) (0-4) % Baso % (Auto) (0-2) % Neut # (Auto) (1.8-7.7) T/MM3 Lymph # (Auto) (1-4.8) T/MM3 Daniels # (Auto) (0-0.8) T/MM3 Eos # (Auto) (0-0.5) T/MM3 Baso # (Auto) (0-0.2) T/MM3 Abs Immat Gran (auto) (0.00-0.03) T/MM3 INR (0.99-1.21) Turbidity < 20 (0-20) Sodium 142 (134-144) MEQ/L Potassium 4.0 (3.6-5) MEQ/L Chloride 103 (98-107) MEQ/L Carbon Dioxide 28 (22-30) MEQ/L Anion Gap 11 (5-15) MEQ/L BUN 23.0 H (9-20) MG/DL Creatinine 1.1 D (0.8-1.5) MG/DL GFR Calculation 65 BUN/Creatinine Ratio 21 (6-26) RATIO Glucose 96 (75-110) MG/DL Glucometer 107 (65-110) mg/dL Calculated Osmolality 277 (261-280) MOSM/KG Calcium 8.9 (8.4-10.2) MG/DL Total Bilirubin (0.20-1.30) MG/DL Icterus Index < 2 (0-7) AST (17-59) U/L ALT (21-72) U/L Alkaline Phosphatase (38-126) U/L Total Protein (6.3-8.2) G/DL Albumin (3.5-5.0) G/DL Globulin (2.4-3.6) G/DL Albumin/Globulin Ratio (1.1-2.2) RATIO Specimen Hemolysis < 15 (0-25) Ur Collection Type Urine Color (YELLOW) Urine Clarity Urine pH (5.0-8.0) Ur Specific Isom (1.015-1.025) Urine Protein (NEGATIVE) Urine Glucose (UA) (NEGATIVE) Urine Ketones (NEGATIVE) Urine Occult Blood (NEGATIVE) Urine Nitrate (NEGATIVE) Urine Bilirubin (NEGATIVE) Urine Urobilinogen (NORMAL) EU/DL Ur Leukocyte Esterase (NEGATIVE) Urine RBC (0-3) /HPF Urine WBC (0-5) /HPF Ur Squamous Epith Cells Urine Bacteria (NEGATIVE) Ur Culture Indicated? Digoxin 0.7 L (0.8-2.0) NG/ML Influenza Type A (PCR) (Negative) Influenza Type B (PCR) (Negative) 0210/23/17 10/24/17 Range/Units 14:45 19:50 04:48 WBC (4.5-11.0) T/MM3 RBC (4.50-5.90) M/MM3 Hgb (13.5-17.5) GM/DL Hct (41-53) % MCV (80-100) UM3 MCH (26-34) UUG MCHC (31-37) GM/DL RDW Std Deviation (36.9-50.2) FL Plt Count (130-400) T/MM3 MPV (9.4-12.4) UM3 Immature Gran % (Auto) (0.0-0.5) % Neut % (Auto) (33-66) % Lymph % (Auto) (23-45) % Daniels % (Auto) (0-9.0) % Eos % (Auto) (0-4) % Baso % (Auto) (0-2) % Neut # (Auto) (1.8-7.7) T/MM3 Lymph # (Auto) (1-4.8) T/MM3 Daniels # (Auto) (0-0.8) T/MM3 Eos # (Auto) (0-0.5) T/MM3 Baso # (Auto) (0-0.2) T/MM3 Abs Immat Gran (auto) (0.00-0.03) T/MM3 INR 1.60 H 1.46 H (0.99-1.21) Turbidity (0-20) Sodium (134-144) MEQ/L Potassium (3.6-5) MEQ/L Chloride (98-107) MEQ/L Carbon Dioxide (22-30) MEQ/L Anion Gap (5-15) MEQ/L BUN (9-20) MG/DL Creatinine (0.8-1.5) MG/DL GFR Calculation BUN/Creatinine Ratio (6-26) RATIO Glucose (75-110) MG/DL Glucometer 118 (65-110) mg/dL Calculated Osmolality (261-280) MOSM/KG Calcium (8.4-10.2) MG/DL Total Bilirubin (0.20-1.30) MG/DL Icterus Index (0-7) AST (17-59) U/L ALT (21-72) U/L Alkaline Phosphatase (38-126) U/L Total Protein (6.3-8.2) G/DL Albumin (3.5-5.0) G/DL Globulin (2.4-3.6) G/DL Albumin/Globulin Ratio (1.1-2.2) RATIO Specimen Hemolysis (0-25) Ur Collection Type Urine Color (YELLOW) Urine Clarity Urine pH (5.0-8.0) Ur Specific Isom (1.015-1.025) Urine Protein (NEGATIVE) Urine Glucose (UA) (NEGATIVE) Urine Ketones (NEGATIVE) Urine Occult Blood (NEGATIVE) Urine Nitrate (NEGATIVE) Urine Bilirubin (NEGATIVE) Urine Urobilinogen (NORMAL) EU/DL Ur Leukocyte Esterase (NEGATIVE) Urine RBC (0-3) /HPF Urine WBC (0-5) /HPF Ur Squamous Epith Cells Urine Bacteria (NEGATIVE) Ur Culture Indicated? Digoxin (0.8-2.0) NG/ML Influenza Type A (PCR) (Negative) Influenza Type B (PCR) (Negative) 10/24/17 10/24/17 10/24/17 Range/Units 04:48 04:48 06:49 WBC 4.9 (4.5-11.0) T/MM3 RBC 4.59 (4.50-5.90) M/MM3 Hgb 13.9 (13.5-17.5) GM/DL Hct 42.6 (41-53) % MCV 92.8 (80-100) UM3 MCH 30.3 (26-34) UUG MCHC 32.6 (31-37) GM/DL RDW Std Deviation 46.7 (36.9-50.2) FL Plt Count 184 (130-400) T/MM3 MPV 9.7 (9.4-12.4) UM3 Immature Gran % (Auto) 0.2 (0.0-0.5) % Neut % (Auto) 54.4 (33-66) % Lymph % (Auto) 30.0 (23-45) % Daniels % (Auto) 11.5 H (0-9.0) % Eos % (Auto) 3.5 (0-4) % Baso % (Auto) 0.4 (0-2) % Neut # (Auto) 2.6 (1.8-7.7) T/MM3 Lymph # (Auto) 1.5 (1-4.8) T/MM3 Daniels # (Auto) 0.6 (0-0.8) T/MM3 Eos # (Auto) 0.2 (0-0.5) T/MM3 Baso # (Auto) 0.0 (0-0.2) T/MM3 Abs Immat Gran (auto) 0.01 (0.00-0.03) T/MM3 INR (0.99-1.21) Turbidity < 20 (0-20) Sodium 143 (134-144) MEQ/L Potassium 4.1 (3.6-5) MEQ/L Chloride 104 (98-107) MEQ/L Carbon Dioxide 28 (22-30) MEQ/L Anion Gap 11 (5-15) MEQ/L BUN 19.0 (9-20) MG/DL Creatinine 1.0 (0.8-1.5) MG/DL GFR Calculation 73 BUN/Creatinine Ratio 19 (6-26) RATIO Glucose 98 (75-110) MG/DL Glucometer 87 (65-110) mg/dL Calculated Osmolality 277 (261-280) MOSM/KG Calcium 8.7 (8.4-10.2) MG/DL Total Bilirubin (0.20-1.30) MG/DL Icterus Index < 2 (0-7) AST (17-59) U/L ALT (21-72) U/L Alkaline Phosphatase (38-126) U/L Total Protein (6.3-8.2) G/DL Albumin (3.5-5.0) G/DL Globulin (2.4-3.6) G/DL Albumin/Globulin Ratio (1.1-2.2) RATIO Specimen Hemolysis < 15 (0-25) Ur Collection Type Urine Color (YELLOW) Urine Clarity Urine pH (5.0-8.0) Ur Specific Isom (1.015-1.025) Urine Protein (NEGATIVE) Urine Glucose (UA) (NEGATIVE) Urine Ketones (NEGATIVE) Urine Occult Blood (NEGATIVE) Urine Nitrate (NEGATIVE) Urine Bilirubin (NEGATIVE) Urine Urobilinogen (NORMAL) EU/DL Ur Leukocyte Esterase (NEGATIVE) Urine RBC (0-3) /HPF Urine WBC (0-5) /HPF Ur Squamous Epith Cells Urine Bacteria (NEGATIVE) Ur Culture Indicated? Digoxin (0.8-2.0) NG/ML Influenza Type A (PCR) (Negative) Influenza Type B (PCR) (Negative) 10/24/17 Range/Units 11:02 WBC (4.5-11.0) T/MM3 RBC (4.50-5.90) M/MM3 Hgb (13.5-17.5) GM/DL Hct (41-53) % MCV (80-100) UM3 MCH (26-34) UUG MCHC (31-37) GM/DL RDW Std Deviation (36.9-50.2) FL Plt Count (130-400) T/MM3 MPV (9.4-12.4) UM3 Immature Gran % (Auto) (0.0-0.5) % Neut % (Auto) (33-66) % Lymph % (Auto) (23-45) % Daniels % (Auto) (0-9.0) % Eos % (Auto) (0-4) % Baso % (Auto) (0-2) % Neut # (Auto) (1.8-7.7) T/MM3 Lymph # (Auto) (1-4.8) T/MM3 Daniels # (Auto) (0-0.8) T/MM3 Eos # (Auto) (0-0.5) T/MM3 Baso # (Auto) (0-0.2) T/MM3 Abs Immat Gran (auto) (0.00-0.03) T/MM3 INR (0.99-1.21) Turbidity (0-20) Sodium (134-144) MEQ/L Potassium (3.6-5) MEQ/L Chloride (98-107) MEQ/L Carbon Dioxide (22-30) MEQ/L Anion Gap (5-15) MEQ/L BUN (9-20) MG/DL Creatinine (0.8-1.5) MG/DL GFR Calculation BUN/Creatinine Ratio (6-26) RATIO Glucose (75-110) MG/DL Glucometer 101 (65-110) mg/dL Calculated Osmolality (261-280) MOSM/KG Calcium (8.4-10.2) MG/DL Total Bilirubin (0.20-1.30) MG/DL Icterus Index (0-7) AST (17-59) U/L ALT (21-72) U/L Alkaline Phosphatase (38-126) U/L Total Protein (6.3-8.2) G/DL Albumin (3.5-5.0) G/DL Globulin (2.4-3.6) G/DL Albumin/Globulin Ratio (1.1-2.2) RATIO Specimen Hemolysis (0-25) Ur Collection Type Urine Color (YELLOW) Urine Clarity Urine pH (5.0-8.0) Ur Specific Isom (1.015-1.025) Urine Protein (NEGATIVE) Urine Glucose (UA) (NEGATIVE) Urine Ketones (NEGATIVE) Urine Occult Blood (NEGATIVE) Urine Nitrate (NEGATIVE) Urine Bilirubin (NEGATIVE) Urine Urobilinogen (NORMAL) EU/DL Ur Leukocyte Esterase (NEGATIVE) Urine RBC (0-3) /HPF Urine WBC (0-5) /HPF Ur Squamous Epith Cells Urine Bacteria (NEGATIVE) Ur Culture Indicated? Digoxin (0.8-2.0) NG/ML Influenza Type A (PCR) (Negative) Influenza Type B (PCR) (Negative) - Microbiology Influenza A+ - Radiology Radiology: CXR with no acute abnormalities History of Present Illness HPI: Patient is a 76 year old male admitted from ED due to Influenza A, weakness and confusion. reports confusion is improved today. Patient states he is still feeling weak and ill. He reports decreased PO intake and still doesn't feel like eating or drinking. He was started on IVF and Tamiflu. Objective Vital signs: Temperature 97.7 F 10/24/17 07:00 Pulse Rate 68 10/24/17 08:16 Respiratory Rate 18 10/24/17 11:33 Blood Pressure 147/85 H 10/24/17 07:00 Pulse Oximetry 97 10/24/17 11:33 Height/Weight/BMI: Height 6 ft 2 in Weight 98.9 kg Body Mass Index 28.3 - Constitutional Present: no acute distress, average body habitus, cooperative - Routine HEENT Exam Head: Present: normocephalic, atraumatic Eye: Present: EOMI, conjunctivae pink ENT: Present: mucous membranes moist, nares patent - Routine Respiratory Exam Present: CTA bilaterally. Absent: respiratory distress, diminished air movement - Routine Cardiovascular Exam Present: RRR, no murmur - Routine Abdominal Exam Present: soft, normoactive bowel sounds, non distended, non tender. Absent: tenderness - Routine Extremities Exam Present: pulses intact, normal capillary refill. Absent: cyanosis, clubbing, edema - Routine Skin Exam Present: intact, dry, warm - Routine Neurological Exam Present: alert, oriented X3, CN II-XII intact - Routine Psychiatric Exam Present: normal affect Hospital Course This is a general summary of the patient's hospital course. For more details refer to the complete medical record. Hospital course: Patient was admitted due to influenza A, confusion and dehydration. He was started on Tamiflu and IVF. Patient was feeling much better the following morning. Patient was tolerating PO intake well. He had no confusion. He was evaluated by PT/OT. Home health was recommended. Patient was discharged in stable condition with instructions for follow up and needed prescriptions. Time spent with patient: 25 - 35 minutes Discharge Plan - Discharge Disposition Discharge Date: 10/24/17 Disposition: 01 Discharged Home, Self-Care *Condition: Stable Reason For Visit (Visit label in EMR): influenza A, weakness - Discharge Medications *Discharge Medications: New Oseltamivir Cap [Tamiflu] 75 mg PO DAILY #7 cap Continue dilTIAZem HCl [Cartia Xt] 240 mg PO DAILY Warfarin [Coumadin] 1 mg PO [id number] Warfarin [Coumadin] 6 mg PO MOWEFR Digoxin [Digitek] 250 mcg PO DAILY Lisinopril [Prinivil] 10 mg PO DAILY Terazosin [Hytrin] 5 mg PO HS Metformin [Glucophage] 500 mg PO WB Allopurinol [Zyloprim] 150 mg PO DAILY - Discharge Packet/Instructions *Diet: Diabetic *Activity: As tolerate. Recommend home health for PT/OT *Pain Management/Treatment: Continue Tamiflu as instructed. Tylenol as needed for fever/discomfort *Wound Care: n/a *Expected Signs/Symptoms: Weakness, fatigue, fever *Notify Physician if: symptoms worsening, confusion, unable to care for self at home *During Business Hours Contact: Primary care physician *After Business Hours Contact: Physician contact manager or ED *Pending Lab/Results: No Pending Lab - Referrals/Follow Up *Referrals/Follow Up: Blayne Blake DO [Family Provider] - 1 Week (APPOINTMENT ON 10/31 AT 0930.) - Patient Handouts Patient Handouts: Influenza (GEN), Weakness (GEN) - Dismissal Complete Discharge Instructions are:: Complete Physician Narrative - Narrative Attestation Narrative: Date: 10/24/17 Time: 1227
== END 2017-10-24 12:55 | disposition home health service (06) | DRG 195 ==
LOC: ED 15:47 → MED 19:07
PROVIDERS: ADMIT Internal Medicine; ATTEND Pediatrics